=== PATIENT | male | born 1965 | race Caucasian/White ===

== ENCOUNTER 2018-04-11 02:00 | Emergency (ER) | payer MEDICAID ==
[~2018-04-11] VITALS: Ht 188 cm; Wt 74.0 kg
[2018-04-11] MEDS ORDERED: ALBUTEROL/IPRATROPIUM 2.5MG/0.5MG, 3 ML NPPB PRN (03:00)
[2018-04-11] MEDS ORDERED: ALBUTEROL/IPRATROPIUM 2.5MG/0.5MG, 3 ML ONE (03:36)
[2018-04-11 05:13] VITALS: BP 123/87
== END 2018-04-11 06:37 | disposition home or self-care (01) ==
LOC: ED 03:21
DX: J44.1 Chronic obstructive pulmonary disease with (acute) exacerbation (principal); F17.210 Nicotine dependence, cigarettes, uncomplicated
CPT/HCPCS: 71046; 93005; 94640; 99285; J7512; J7620

== ENCOUNTER 2018-04-27 10:15 | Emergency (ER) | payer MEDICAID ==
[~2018-04-27] VITALS: Ht 188 cm; Wt 72.9 kg
[2018-04-27] MEDS ORDERED: ALBUTEROL/IPRATROPIUM 2.5MG/0.5MG, 3 ML ONE (10:43)
[2018-04-27] MEDS: ALBUTEROL/IPRATROPIUM 2.5MG/0.5MG, 3 ML NPPB SCH (10:45)
[2018-04-27] MEDS ORDERED: SODIUM CHLORIDE 0.9% 1,000ML IVBOLUS ONE (11:00)
[2018-04-27] MEDS ORDERED: methylPREDNISolone SOD SUCC 125 MG/2 ML IVP ONE (11:00)
[2018-04-27] MEDS ORDERED: methylPREDNISolone SOD SUCC 125 MG/2 ML ONE (11:02)
[2018-04-27 11:09] LABS: BASOPHILS # (AUTO) 0.11 x10^3/uL (0-0.1); BASOPHILS % (AUTO) 1 % (0-1); EOSINOPHILS # (AUTO) 0.22 x10^3/uL (0-0.4); EOSINOPHILS % (AUTO) 2 % (1-7); LYMPHOCYTES # (AUTO) 1.86 x10^3/uL (1-3.4); LYMPHOCYTES % (AUTO) 16 % (22-44); MD NO; MEAN CORPUSCULAR HEMOGLOBIN 32.5 pg (27.5-34.5); MEAN CORPUSCULAR HGB CONC 33.9 g/dL (33.2-36.2); MEAN CORPUSCULAR VOLUME 95.9 fL (81-97); MEAN PLATELET VOLUME 8.1 fL (7.4-10.4); MONOCYTES # (AUTO) 0.93 x10^3/uL (0.2-0.8); MONOCYTES % (AUTO) 8 % (2-9); NEUTROPHILS # (AUTO) 8.32 x10^3/uL (1.8-6.8); NEUTROPHILS % (AUTO) 73 % (42-75); PLATELET COUNT 211 x10^3/uL (130-400); RED BLOOD COUNT 4.63 x10^6/uL (4.38-5.82); RED CELL DISTRIBUTION WIDTH 15.4 % (9.4-14.8)
[2018-04-27 11:16] LABS: ALBUMIN 3.6 g/dL (3.4-5.0); ANION GAP 8 mmol/L (5-15); CALCIUM 8.1 mg/dL (8.5-10.1); CHLORIDE 104 mmol/L (98-107); CREATININE 0.67 mg/dL (0.7-1.3)
[2018-04-27 12:29] VITALS: BP 146/92
== END 2018-04-27 13:06 | disposition home or self-care (01) ==
LOC: ED 10:48
DX: J44.1 Chronic obstructive pulmonary disease with (acute) exacerbation (principal); F19.20 Other psychoactive substance dependence, uncomplicated
CPT/HCPCS: 36415; 71045; 80048; 82040; 85025; 93005; 94640; 96374; 99285; J2930; J7030; J7620

== ENCOUNTER 2018-05-14 08:57 | Emergency (ER) | payer MEDICAID ==
[2018-05-14] MEDS ORDERED: ALBUTEROL/IPRATROPIUM 2.5MG/0.5MG, 3 ML ONE (09:54)
[2018-05-14] MEDS ORDERED: ALBUTEROL/IPRATROPIUM 2.5MG/0.5MG, 3 ML NPPB ONE (10:00)
[2018-05-14 10:21] VITALS: BP 134/81
== END 2018-05-14 10:36 | disposition home or self-care (01) ==
LOC: ED 10:30
DX: J44.1 Chronic obstructive pulmonary disease with (acute) exacerbation (principal); F17.200 Nicotine dependence, unspecified, uncomplicated
CPT/HCPCS: 71045; 93005; 94640; 99284; J7620

== ENCOUNTER 2018-05-23 11:14 | Emergency (ER) | payer MEDICAID ==
[~2018-05-23] VITALS: Ht 188 cm; Wt 77.4 kg
[2018-05-23] MEDS ORDERED: ALBUTEROL/IPRATROPIUM 2.5MG/0.5MG, 3 ML NPPB ONE ×2 (11:30→13:00)
[2018-05-23 11:38] LABS: BASOPHILS # (AUTO) 0.16 x10^3/uL (0-0.1); BASOPHILS % (AUTO) 1 % (0-1); EOSINOPHILS # (AUTO) 0.08 x10^3/uL (0-0.4); EOSINOPHILS % (AUTO) 1 % (1-7); LYMPHOCYTES # (AUTO) 2.11 x10^3/uL (1-3.4); LYMPHOCYTES % (AUTO) 12 % (22-44); MD NO; MEAN CORPUSCULAR HEMOGLOBIN 33.9 pg (27.5-34.5); MEAN CORPUSCULAR HGB CONC 34.7 g/dL (33.2-36.2); MEAN CORPUSCULAR VOLUME 97.9 fL (81-97); MEAN PLATELET VOLUME 7.8 fL (7.4-10.4); MONOCYTES # (AUTO) 0.97 x10^3/uL (0.2-0.8); MONOCYTES % (AUTO) 6 % (2-9); NEUTROPHILS # (AUTO) 14.44 x10^3/uL (1.8-6.8); NEUTROPHILS % (AUTO) 81 % (42-75); PLATELET COUNT 191 x10^3/uL (130-400); RED BLOOD COUNT 4.49 x10^6/uL (4.38-5.82); RED CELL DISTRIBUTION WIDTH 15.2 % (9.4-14.8)
[2018-05-23] MEDS ORDERED: ALBU1.25 NEB (11:47)
[2018-05-23 11:49] LABS: ALANINE AMINOTRANSFERASE 29 U/L (12-78); ALBUMIN 3.1 g/dL (3.4-5.0); ANION GAP 9 mmol/L (5-15); CALCIUM 7.9 mg/dL (8.5-10.1); CHLORIDE 102 mmol/L (98-107)
[2018-05-23 11:53] LABS: ALKALINE PHOSPHATASE 121 U/L (45-117); BILIRUBIN,TOTAL 0.6 mg/dL (0.2-1.0); CREATININE 0.59 mg/dL (0.7-1.3); TOTAL PROTEIN 7.1 g/dL (6.4-8.2); TROPONIN I < 0.015 ng/mL (0.000-0.045)
[2018-05-23] MEDS ORDERED: ALBUTEROL/IPRATROPIUM 2.5MG/0.5MG, 3 ML ONE ×2 (11:54→12:42)
[2018-05-23 13:56] VITALS: BP 129/82
== END 2018-05-23 14:02 | disposition home or self-care (01) ==
LOC: ED 12:07
DX: J44.1 Chronic obstructive pulmonary disease with (acute) exacerbation (principal); F17.200 Nicotine dependence, unspecified, uncomplicated
CPT/HCPCS: 36415; 71045; 80053; 84484; 85025; 93005; 94640; 99285; J7512; J7620

== ENCOUNTER 2018-05-24 16:09 | Emergency (ER) | payer MEDICAID ==
[~2018-05-24] VITALS: Ht 188 cm; Wt 75.7 kg
[~2018-05-24 16:09] MED LIST: ALBU1.25 NEB
[2018-05-24 16:21] VITALS: BP 152/93
[2018-05-24] MEDS ORDERED: ALBUTEROL/IPRATROPIUM 2.5MG/0.5MG, 3 ML NPPB ONE (17:00)
[2018-05-24] MEDS ORDERED: ALBUTEROL/IPRATROPIUM 2.5MG/0.5MG, 3 ML ONE (17:19)
== END 2018-05-24 17:45 | disposition home or self-care (01) ==
LOC: ED 17:40
DX: J44.1 Chronic obstructive pulmonary disease with (acute) exacerbation (principal); F17.200 Nicotine dependence, unspecified, uncomplicated; Z90.49 Acquired absence of other specified parts of digestive tract
CPT/HCPCS: 93005; 94640; 99283; 99406; J7512; J7620

== ENCOUNTER 2018-06-27 10:55 | Emergency (ER) | payer MEDICAID ==
[~2018-06-27] VITALS: Ht 193 cm; Wt 80.0 kg
[2018-06-27] MEDS ORDERED: ALBUTEROL/IPRATROPIUM 2.5MG/0.5MG, 3 ML NPPB ONE (11:30)
[2018-06-27] MEDS ORDERED: ALBUTEROL/IPRATROPIUM 2.5MG/0.5MG, 3 ML ONE (11:36)
[2018-06-27 12:48] VITALS: BP 137/94
== END 2018-06-27 13:20 | disposition home or self-care (01) ==
LOC: ED 13:14
DX: J44.1 Chronic obstructive pulmonary disease with (acute) exacerbation (principal); F17.200 Nicotine dependence, unspecified, uncomplicated; Z90.89 Acquired absence of other organs
CPT/HCPCS: 71045; 73030; 93005; 94640; 99284; J7512; J7620

== ENCOUNTER 2018-07-20 08:18 | Emergency (ER) | payer MEDICAID ==
[~2018-07-20] VITALS: Ht 190.5 cm; Wt 82.7 kg
[2018-07-20] MEDS ORDERED: SODIUM CHLORIDE FLUSH 10ML SYR IVF ONE (08:30)
[2018-07-20] MEDS ORDERED: methylPREDNISolone SOD SUCC 125 MG/2 ML IVP ONE (08:30)
[2018-07-20] MEDS ORDERED: methylPREDNISolone SOD SUCC 125 MG/2 ML ONE (08:42)
[2018-07-20] MEDS ORDERED: ALBUTEROL SULFATE 2.5 MG/3 ML ONE (08:43)
[2018-07-20 08:50] LABS: BASOPHILS # (AUTO) 0.05 x10^3/uL (0-0.1); BASOPHILS % (AUTO) 1 % (0-1); EOSINOPHILS # (AUTO) 0.15 x10^3/uL (0-0.4); EOSINOPHILS % (AUTO) 2 % (1-7); LYMPHOCYTES # (AUTO) 1.37 x10^3/uL (1-3.4); LYMPHOCYTES % (AUTO) 13 % (22-44); MD NO; MEAN CORPUSCULAR HEMOGLOBIN 33.6 pg (27.5-34.5); MEAN CORPUSCULAR HGB CONC 33.4 g/dL (33.2-36.2); MEAN CORPUSCULAR VOLUME 100.7 fL (81-97); MEAN PLATELET VOLUME 7.3 fL (7.4-10.4); MONOCYTES # (AUTO) 0.83 x10^3/uL (0.2-0.8); MONOCYTES % (AUTO) 8 % (2-9); NEUTROPHILS # (AUTO) 8.03 x10^3/uL (1.8-6.8); NEUTROPHILS % (AUTO) 77 % (42-75); PLATELET COUNT 236 x10^3/uL (130-400); RED BLOOD COUNT 4.28 x10^6/uL (4.38-5.82); RED CELL DISTRIBUTION WIDTH 17.2 % (9.4-14.8)
[2018-07-20 08:58] LABS: ALANINE AMINOTRANSFERASE 39 U/L (12-78); ALBUMIN 3.2 g/dL (3.4-5.0); ANION GAP 9 mmol/L (5-15); CALCIUM 7.8 mg/dL (8.5-10.1); CHLORIDE 96 mmol/L (98-107); CREATININE 0.58 mg/dL (0.7-1.3)
[2018-07-20] MEDS ORDERED: ALBUTEROL SULFATE 2.5 MG/3 ML NPPB ONE ×2 (09:00)
[2018-07-20 09:02] LABS: ALKALINE PHOSPHATASE 136 U/L (45-117); BILIRUBIN,TOTAL 0.5 mg/dL (0.2-1.0); TOTAL PROTEIN 6.8 g/dL (6.4-8.2); TROPONIN I < 0.015 ng/mL (0.000-0.045)
[2018-07-20] MEDS ORDERED: OMNIPAQUE 350 MG/ML, 100ML BOTTLE ONE (09:51)
[2018-07-20 11:27] VITALS: BP 152/97
== END 2018-07-20 11:31 | disposition left against medical advice (07) ==
LOC: ED 08:51
DX: J43.9 Emphysema, unspecified (principal); R09.02 Hypoxemia; F17.200 Nicotine dependence, unspecified, uncomplicated; Z90.89 Acquired absence of other organs
CPT/HCPCS: 36415; 71045; 71275; 80053; 84484; 85025; 93005; 94640; 96374; 99285; J2930; Q9967; J7613

== ENCOUNTER 2018-07-27 19:40 | Inpatient (IN) | payer MEDICAID ==
[~2018-07-27] VITALS: Ht 190.5 cm; Wt 83.5 kg
[2018-07-27] MEDS ORDERED: ALBUTEROL/IPRATROPIUM 2.5MG/0.5MG, 3 ML ONE (20:21)
[2018-07-27] MEDS ORDERED: SODIUM CHLORIDE FLUSH 10ML SYR IVF ONE (20:30)
[2018-07-27] MEDS ORDERED: ALBUTEROL/IPRATROPIUM 2.5MG/0.5MG, 3 ML NPPB ONE (20:30)
[2018-07-27 20:41] LABS: BASOPHILS # (AUTO) 0.06 x10^3/uL (0-0.1); BASOPHILS % (AUTO) 1 % (0-1); EOSINOPHILS % (AUTO) 3 % (1-7); LYMPHOCYTES % (AUTO) 28 % (22-44); MD NO; MEAN CORPUSCULAR HEMOGLOBIN 34.2 pg (27.5-34.5); MEAN CORPUSCULAR HGB CONC 33.5 g/dL (33.2-36.2); MEAN PLATELET VOLUME 6.9 fL (7.4-10.4); MONOCYTES # (AUTO) 1.07 x10^3/uL (0.2-0.8); MONOCYTES % (AUTO) 15 % (2-9); NEUTROPHILS # (AUTO) 3.82 x10^3/uL (1.8-6.8); NEUTROPHILS % (AUTO) 53 % (42-75); PLATELET COUNT 174 x10^3/uL (130-400); RED BLOOD COUNT 4.03 x10^6/uL (4.38-5.82); RED CELL DISTRIBUTION WIDTH 17.8 % (9.4-14.8)
[2018-07-27 20:52] LABS: ALANINE AMINOTRANSFERASE 36 U/L (12-78); ANION GAP 8 mmol/L (5-15); CHLORIDE 96 mmol/L (98-107); CREATININE 0.52 mg/dL (0.7-1.3)
[2018-07-27 20:56] LABS: ALKALINE PHOSPHATASE 114 U/L (45-117); BILIRUBIN,TOTAL 0.4 mg/dL (0.2-1.0); TOTAL PROTEIN 6.7 g/dL (6.4-8.2); TROPONIN I < 0.015 ng/mL (0.000-0.045)
[2018-07-27] MEDS ORDERED: ONDANSETRON ODT 4 MG PO PRN (23:00)
[2018-07-27] MEDS ORDERED: FUROSEMIDE 20 MG/2 ML IV ONE (23:00)
[2018-07-27] MEDS ORDERED: ALBUTEROL/IPRATROPIUM 2.5MG/0.5MG, 3 ML NPPB PRN (23:00)
[2018-07-27] MEDS ORDERED: BISACODYL 10 MG SUPP PR PRN (23:00)
[2018-07-27] MEDS ORDERED: PROMETHAZINE 25 MG/ML, 1ML IM PRN (23:00)
[2018-07-27] MEDS ORDERED: ONDANSETRON 2MG/ML, 2ML IVPush PRN (23:00)
[2018-07-27] MEDS ORDERED: hydrALAzine 20 MG/ML, 1ML IVPush PRN (23:00)
[2018-07-27] MEDS: DOXYCYCLINE 100MG TABLET PO SCH (23:00)
[2018-07-27] MEDS ORDERED: LABETALOL 5MG/ML, 20ML IVPush PRN (23:00)
[2018-07-27] MEDS ORDERED: POLYETHYLENE GLYCOL 17 GM PACKET PO PRN (23:00)
[2018-07-27] MEDS ORDERED: DOCUSATE 100 MG CAPSULE PO PRN (23:00)
[2018-07-27 23:07] VITALS: BP 123/81
[2018-07-27 23:12] LABS: HEMOGLOBIN A1C 5.1 % (4.2-6.3)
[2018-07-27 23:14] LABS: FREE T4 (FREE THYROXINE) 1.27 ng/dL (0.76-1.46); THYROID STIMULATING HORMONE 3.51 mIU/L (0.358-3.740)
[2018-07-28] MEDS: ENOXAPARIN 40 MG/0.4 ML SQ SCH
[2018-07-28 01:06] VITALS: BP 144/98
[2018-07-28 05:13] LABS: BASOPHILS % (AUTO) 0 % (0-1); EOSINOPHILS # (AUTO) 0.01 x10^3/uL (0-0.4); EOSINOPHILS % (AUTO) 0 % (1-7); LYMPHOCYTES # (AUTO) 0.34 x10^3/uL (1-3.4); LYMPHOCYTES % (AUTO) 10 % (22-44); MD NO; MEAN CORPUSCULAR HEMOGLOBIN 34.2 pg (27.5-34.5); MEAN CORPUSCULAR HGB CONC 33.4 g/dL (33.2-36.2); MEAN CORPUSCULAR VOLUME 102.4 fL (81-97); MEAN PLATELET VOLUME 7.2 fL (7.4-10.4); MONOCYTES # (AUTO) 0.05 x10^3/uL (0.2-0.8); MONOCYTES % (AUTO) 1 % (2-9); NEUTROPHILS # (AUTO) 3.21 x10^3/uL (1.8-6.8); NEUTROPHILS % (AUTO) 89 % (42-75); PLATELET COUNT 170 x10^3/uL (130-400); RED BLOOD COUNT 4.05 x10^6/uL (4.38-5.82); RED CELL DISTRIBUTION WIDTH 18.4 % (9.4-14.8)
[2018-07-28 05:21] LABS: CHLORIDE 99 mmol/L (98-107)
[2018-07-28] MEDS: methylPREDNISolone SOD SUCC 125 MG/2 ML IVPush SCH ×4 (05:21→17:44)
[2018-07-28 05:28] LABS: ALANINE AMINOTRANSFERASE 37 U/L (12-78); ALKALINE PHOSPHATASE 114 U/L (45-117); ANION GAP 8 mmol/L (5-15); BILIRUBIN,TOTAL 0.3 mg/dL (0.2-1.0); CALCIUM 8.2 mg/dL (8.5-10.1); CHOL/HDL RATIO 2.2; CHOLESTEROL, TOTAL 162 mg/dL (140-239); CREATININE 0.67 mg/dL (0.7-1.3); HDL CHOL % 46 % (26-37); HDL CHOLESTEROL (DIRECT) 74 mg/dL (40-60); LDL CHOLESTEROL,CALCULATED 76 mg/dL (54-169); TOTAL PROTEIN 6.8 g/dL (6.4-8.2); TRIGLYCERIDES 59 mg/dL (50-200); VLDL CHOLESTEROL 12 mg/dL (0-25)
[2018-07-28] MEDS: ALBUTEROL/IPRATROPIUM 2.5MG/0.5MG, 3 ML NPPB SCH ×5 (06:00→23:00)
[2018-07-28 06:11] LABS: CULTURE INDICATED? NO; MICROSCOPIC NOT IND
[2018-07-28 06:58] VITALS: BP 130/89
[2018-07-28] MEDS: DOXYCYCLINE 100MG TABLET PO SCH ×2 (09:00→20:17)
[2018-07-28] MEDS: FLUTICASONE/VILANTEROL 200-25MCG/INH INH SCH (13:18)
[2018-07-28 13:21] VITALS: BP 160/99
[2018-07-28] MEDS ORDERED: MAGNESIUM SULFATE PMX 2GM/50ML 50 ML IV ONE (14:30)
[2018-07-28 19:12] VITALS: BP 161/95
[2018-07-28] MEDS: NICOTINE 7 MG/24 HR PATCH.TD24 TD SCH ×2 (23:00)
[2018-07-29] MEDS: ENOXAPARIN 40 MG/0.4 ML SQ SCH (00:02)
[2018-07-29] MEDS: methylPREDNISolone SOD SUCC 125 MG/2 ML IVPush SCH ×2 (00:02→05:54)
[2018-07-29 02:35] VITALS: BP 133/93
[2018-07-29 05:43] LABS: BASOPHILS # (AUTO) 0.01 x10^3/uL (0-0.1); BASOPHILS % (AUTO) 0 % (0-1); EOSINOPHILS % (AUTO) 0 % (1-7); LYMPHOCYTES # (AUTO) 0.52 x10^3/uL (1-3.4); LYMPHOCYTES % (AUTO) 6 % (22-44); MD NO; MEAN CORPUSCULAR HEMOGLOBIN 34.9 pg (27.5-34.5); MEAN CORPUSCULAR VOLUME 102.7 fL (81-97); MEAN PLATELET VOLUME 7.4 fL (7.4-10.4); MONOCYTES # (AUTO) 0.25 x10^3/uL (0.2-0.8); MONOCYTES % (AUTO) 3 % (2-9); NEUTROPHILS # (AUTO) 8.41 x10^3/uL (1.8-6.8); NEUTROPHILS % (AUTO) 91 % (42-75); PLATELET COUNT 190 x10^3/uL (130-400); RED BLOOD COUNT 3.88 x10^6/uL (4.38-5.82); RED CELL DISTRIBUTION WIDTH 18.1 % (9.4-14.8)
[2018-07-29 05:48] LABS: ANION GAP 8 mmol/L (5-15); CALCIUM 8.1 mg/dL (8.5-10.1); CHLORIDE 98 mmol/L (98-107); CREATININE 0.69 mg/dL (0.7-1.3)
[2018-07-29] MEDS: ALBUTEROL/IPRATROPIUM 2.5MG/0.5MG, 3 ML NPPB SCH (06:00)
[2018-07-29 06:59] VITALS: BP 149/94
[2018-07-29] MEDS ORDERED: LISI-167 PO (07:47)
[2018-07-29] MEDS ORDERED: NICO-485 TD (07:47)
[2018-07-29] MEDS ORDERED: METH4TAB2 PO (07:47)
[2018-07-29] MEDS ORDERED: FLUT1BLS INH (07:47)
[2018-07-29] MEDS: DOXYCYCLINE 100MG TABLET PO SCH (08:14)
[2018-07-29] MEDS: FLUTICASONE/VILANTEROL 200-25MCG/INH INH SCH (08:14)
[2018-07-29] MEDS ORDERED: LISINOPRIL 5 MG TABLET PO SCH (09:00)
== END 2018-07-29 09:45 | disposition home or self-care (01) | DRG 189 ==
LOC: ED 21:37 → EDIP 22:10 → 3NE 22:55 → DCLOUNGE 07-29 09:36
PROVIDERS: ADMIT Internal Medicine; ATTEND Internal Medicine
DX: J96.01 Acute respiratory failure with hypoxia (principal); J44.1 Chronic obstructive pulmonary disease with (acute) exacerbation; E44.0 Moderate protein-calorie malnutrition; E87.1 Hypo-osmolality and hyponatremia; F17.210 Nicotine dependence, cigarettes, uncomplicated; E83.42 Hypomagnesemia; F12.90 Cannabis use, unspecified, uncomplicated; I10 Essential (primary) hypertension; D53.9 Nutritional anemia, unspecified; Z87.11 Personal history of peptic ulcer disease; Z91.013 Allergy to seafood; Z91.018 Allergy to other foods; Z79.899 Other long term (current) drug therapy; Z68.23 Body mass index [BMI] 23.0-23.9, adult
CPT/HCPCS: 36415; 99285; J7620; 71045; 80048; 80053; 80061; 81003; 82607; 82746; 83036; 83735; 83880; 84439; 84443; 84484; 85025; 93005; 93306; 93970; 94640; G0378; J1650; J1940; J2930; J3475; J7512

== ENCOUNTER 2018-08-14 14:42 | Inpatient (IN) | payer MEDICAID ==
[~2018-08-14] VITALS: Ht 190.5 cm; Wt 82.0 kg
[~2018-08-14 14:42] MED LIST changes: +FLUT1BLS INH; +LISI-167 PO; +METH4TAB2 PO; +NICO-485 TD
[2018-08-14] MEDS ORDERED: LORazepam 2 MG/ML, 1ML IVPush PRN (15:00)
[2018-08-14] MEDS ORDERED: FAMOTIDINE 20 MG/2 ML IVPush ONE (15:00)
[2018-08-14] MEDS ORDERED: THIAMINE 100MG TABLET PO ONE (15:00)
[2018-08-14] MEDS ORDERED: SODIUM CHLORIDE FLUSH 10ML SYR IVF ONE (15:00)
[2018-08-14] MEDS ORDERED: SODIUM CHLORIDE 0.9% 1,000ML IVBOLUS ONE ×2 (15:00→15:30)
[2018-08-14] MEDS ORDERED: ONDANSETRON 2MG/ML, 2ML IVPush ONE (15:00)
[2018-08-14] MEDS ORDERED: CEFTRIAXONE 1,000 MG in SODIUM CHLORIDE 0.9% 50 ML IVPB ONE (15:30)
[2018-08-14] MEDS ORDERED: AZITHROMYCIN 500 MG in SODIUM CHLORIDE 0.9% 250 ML IVPB ONE (15:30)
[2018-08-14] MEDS ORDERED: ONDANSETRON 2MG/ML, 2ML ONE (15:32)
[2018-08-14] MEDS ORDERED: CEFTRIAXONE PMX 1GM/50ML 50 ML ONE (15:32)
[2018-08-14] MEDS ORDERED: THIAMINE 100MG TABLET ONE (15:32)
[2018-08-14] MEDS ORDERED: FAMOTIDINE 20 MG/2 ML ONE (15:33)
[2018-08-14] MEDS ORDERED: LORazepam 2 MG/ML, 1ML ONE (15:33)
[2018-08-14] MEDS ORDERED: ALBUTEROL/IPRATROPIUM 2.5MG/0.5MG, 3 ML ONE ×2 (15:41→16:24)
[2018-08-14 15:52] LABS: BASOPHILS # (AUTO) 0.07 x10^3/uL (0-0.1); BASOPHILS % (AUTO) 1 % (0-1); EOSINOPHILS # (AUTO) 0.05 x10^3/uL (0-0.4); EOSINOPHILS % (AUTO) 0 % (1-7); LYMPHOCYTES # (AUTO) 1.63 x10^3/uL (1-3.4); LYMPHOCYTES % (AUTO) 11 % (22-44); MD NO; MEAN CORPUSCULAR HEMOGLOBIN 35.4 pg (27.5-34.5); MEAN CORPUSCULAR HGB CONC 34.4 g/dL (33.2-36.2); MEAN CORPUSCULAR VOLUME 102.9 fL (81-97); MEAN PLATELET VOLUME 8.4 fL (7.4-10.4); MONOCYTES # (AUTO) 0.97 x10^3/uL (0.2-0.8); MONOCYTES % (AUTO) 6 % (2-9); NEUTROPHILS % (AUTO) 83 % (42-75); PLATELET COUNT 137 x10^3/uL (130-400); RED BLOOD COUNT 4.21 x10^6/uL (4.38-5.82); RED CELL DISTRIBUTION WIDTH 18.2 % (9.4-14.8)
[2018-08-14 15:55] LABS: RAPID INFLUENZA A Negative (Negative); RAPID INFLUENZA B Negative (Negative)
[2018-08-14 16:00] LABS: ALANINE AMINOTRANSFERASE 39 U/L (12-78); ALBUMIN 3.6 g/dL (3.4-5.0); ANION GAP 8 mmol/L (5-15); CHLORIDE 94 mmol/L (98-107); CREATININE 0.55 mg/dL (0.7-1.3)
[2018-08-14] MEDS: ALBUTEROL/IPRATROPIUM 2.5MG/0.5MG, 3 ML NPPB PRN ×2 (16:00→16:30)
[2018-08-14 16:04] LABS: ALKALINE PHOSPHATASE 112 U/L (45-117); BILIRUBIN,TOTAL 0.9 mg/dL (0.2-1.0); TOTAL PROTEIN 7.7 g/dL (6.4-8.2)
[2018-08-14 16:06] LABS: TROPONIN I < 0.015 ng/mL (0.000-0.045)
[2018-08-14] MEDS ORDERED: SODIUM CHLORIDE 0.9% 1,000 ML IV ONE (16:26)
[2018-08-14] MEDS ORDERED: SODIUM CHLORIDE FLUSH 10ML SYR IVF PRN (16:30)
[2018-08-14] MEDS ORDERED: POLYETHYLENE GLYCOL 17 GM PACKET PO PRN (17:00)
[2018-08-14] MEDS ORDERED: VANCOMYCIN PER PHARMACY MC PRN (17:00)
[2018-08-14] MEDS ORDERED: ONDANSETRON 2MG/ML, 2ML IVPush PRN (17:00)
[2018-08-14] MEDS ORDERED: ACETAMINOPHEN 325 MG TABLET PO PRN (17:00)
[2018-08-14] MEDS ORDERED: LABETALOL 5MG/ML, 20ML IVPush PRN (17:00)
[2018-08-14] MEDS ORDERED: DOCUSATE 100 MG CAPSULE PO PRN (17:00)
[2018-08-14] MEDS ORDERED: BISACODYL 10 MG SUPP PR PRN (17:00)
[2018-08-14] MEDS ORDERED: ALBUTEROL SULFATE 2.5 MG/3 ML NEB PRN (17:00)
[2018-08-14] MEDS ORDERED: OMNIPAQUE 350 MG/ML, 100ML BOTTLE ONE (17:35)
[2018-08-14] MEDS: NICOTINE 7 MG/24 HR PATCH.TD24 TD SCH (18:30)
[2018-08-14] MEDS ORDERED: PHARMACOKINETIC MONITORING MC PRN (19:00)
[2018-08-14] MEDS ORDERED: VANCOMYCIN 1,500 MG in SODIUM CHLORIDE 0.9% 250 ML IV SCH (19:00)
[2018-08-14 19:32] VITALS: BP 127/87
[2018-08-14] MEDS ORDERED: ALBUTEROL/IPRATROPIUM 2.5MG/0.5MG, 3 ML NPPB SCH (20:00)
[2018-08-14] MEDS: PIPERACILLIN/TAZO/PMX 3.375GM 50 ML IV SCH (20:09)
[2018-08-14] MEDS: GUAIFENESIN ER 600 MG TABLET PO SCH (20:10)
[2018-08-14] MEDS: methylPREDNISolone SOD SUCC 125 MG/2 ML IVPush SCH (20:10)
[2018-08-14] MEDS: ENOXAPARIN 40 MG/0.4 ML SQ SCH (20:10)
[2018-08-14] MEDS: POTASSIUM CHLORIDE 20 MEQ TAB.ER.PRT PO SCH (20:10)
[2018-08-14] MEDS: SODIUM CHLORIDE FLUSH 10ML SYR IVF SCH (20:13)
[2018-08-14] MEDS: LORazepam 2 MG/ML, 1ML IVPush PRN (20:37)
[2018-08-14 22:03] VITALS: BP 136/95
[2018-08-14] MEDS ORDERED: MAGNESIUM SULFATE PMX 2GM/50ML 50 ML IV ONE (22:30)
[2018-08-15 01:34] VITALS: BP 140/92
[2018-08-15] MEDS: PIPERACILLIN/TAZO/PMX 3.375GM 50 ML IV SCH ×3 (02:08→18:05)
[2018-08-15] MEDS: methylPREDNISolone SOD SUCC 125 MG/2 ML IVPush SCH ×4 (02:08→22:14)
[2018-08-15] MEDS: LORazepam 2 MG/ML, 1ML IVPush PRN ×3 (04:35→22:14)
[2018-08-15 04:52] LABS: ANION GAP 7 mmol/L (5-15); CALCIUM 7.4 mg/dL (8.5-10.1); CHLORIDE 100 mmol/L (98-107); CREATININE 0.65 mg/dL (0.7-1.3)
[2018-08-15 04:58] LABS: MEAN CORPUSCULAR HEMOGLOBIN 35.1 pg (27.5-34.5); MEAN CORPUSCULAR HGB CONC 33.5 g/dL (33.2-36.2); MEAN CORPUSCULAR VOLUME 104.6 fL (81-97); RED BLOOD COUNT 3.47 x10^6/uL (4.38-5.82); RED CELL DISTRIBUTION WIDTH 17.5 % (9.4-14.8)
[2018-08-15 05:35] LABS: BASOPHILS # (AUTO) 0.01 x10^3/uL (0-0.1); BASOPHILS % (AUTO) 0 % (0-1); EOSINOPHILS % (AUTO) 0 % (1-7); LYMPHOCYTES # (AUTO) 0.69 x10^3/uL (1-3.4); LYMPHOCYTES % (AUTO) 10 % (22-44); MD SCAN; MEAN PLATELET VOLUME 8.6 fL (7.4-10.4); MONOCYTES # (AUTO) 0.08 x10^3/uL (0.2-0.8); MONOCYTES % (AUTO) 1 % (2-9); NEUTROPHILS # (AUTO) 6.25 x10^3/uL (1.8-6.8); NEUTROPHILS % (AUTO) 89 % (42-75); PLATELET COUNT 114 x10^3/uL (130-400)
[2018-08-15 08:00] VITALS: BP 133/89
[2018-08-15] MEDS: ALBUTEROL SULFATE 2.5 MG/3 ML NEB SCH ×5 (08:20→23:00)
[2018-08-15] MEDS: FOLIC ACID 1 MG TABLET PO SCH (09:46)
[2018-08-15] MEDS: FLUTICASONE/VILANTEROL 200-25MCG/INH INH SCH (09:46)
[2018-08-15] MEDS: GUAIFENESIN ER 600 MG TABLET PO SCH ×2 (09:46→20:56)
[2018-08-15] MEDS: MULTIVITAMIN 1 TABLET PO SCH (09:47)
[2018-08-15] MEDS: THIAMINE 100MG TABLET PO SCH (09:47)
[2018-08-15] MEDS: LISINOPRIL 10 MG TABLET PO SCH (09:47)
[2018-08-15] MEDS: POTASSIUM CHLORIDE 20 MEQ TAB.ER.PRT PO SCH ×2 (09:47→16:35)
[2018-08-15] MEDS: LINEZOLID PMX 600MG/300ML 300 ML IV SCH ×2 (09:47→20:56)
[2018-08-15] MEDS: SODIUM CHLORIDE FLUSH 10ML SYR IVF SCH ×2 (09:53→20:56)
[2018-08-15 11:33] LABS: ANION GAP 6 mmol/L (5-15); CALCIUM 7.6 mg/dL (8.5-10.1); CHLORIDE 99 mmol/L (98-107)
[2018-08-15] MEDS ORDERED: SODIUM PHOSPHATE 30 MMOL in SODIUM CHLORIDE 0.9% 500 ML IV ONE (12:30)
[2018-08-15] MEDS ORDERED: MAGNESIUM SULFATE PMX 2GM/50ML 50 ML IV ONE (12:30)
[2018-08-15 14:00] VITALS: BP 126/86
[2018-08-15] MEDS: NICOTINE 7 MG/24 HR PATCH.TD24 TD SCH (16:35)
[2018-08-15 18:40] VITALS: BP 123/74
[2018-08-15] MEDS: ENOXAPARIN 40 MG/0.4 ML SQ SCH (20:57)
[2018-08-16] MEDS: PIPERACILLIN/TAZO/PMX 3.375GM 50 ML IV SCH ×4 (00:17→18:00)
[2018-08-16 02:00] VITALS: BP 151/93
[2018-08-16] MEDS: ALBUTEROL SULFATE 2.5 MG/3 ML NEB SCH ×4 (02:58→16:20)
[2018-08-16] MEDS: methylPREDNISolone SOD SUCC 125 MG/2 ML IVPush SCH ×3 (04:10→16:31)
[2018-08-16 07:52] VITALS: BP 133/84
[2018-08-16] MEDS: POTASSIUM CHLORIDE 20 MEQ TAB.ER.PRT PO SCH ×2 (09:06→16:31)
[2018-08-16] MEDS: GUAIFENESIN ER 600 MG TABLET PO SCH (09:08)
[2018-08-16] MEDS: THIAMINE 100MG TABLET PO SCH (09:09)
[2018-08-16] MEDS: LISINOPRIL 10 MG TABLET PO SCH (09:09)
[2018-08-16] MEDS: FOLIC ACID 1 MG TABLET PO SCH (09:10)
[2018-08-16] MEDS: MULTIVITAMIN 1 TABLET PO SCH (09:10)
[2018-08-16] MEDS: LINEZOLID PMX 600MG/300ML 300 ML IV SCH (09:11)
[2018-08-16] MEDS: FLUTICASONE/VILANTEROL 200-25MCG/INH INH SCH (09:12)
[2018-08-16] MEDS: SODIUM CHLORIDE FLUSH 10ML SYR IVF SCH (09:19)
[2018-08-16] MEDS ORDERED: POTASSIUM PHOSPHATE 44 MEQ in SODIUM CHLORIDE 0.9% 500 ML IV ONE (12:00)
[2018-08-16] MEDS ORDERED: MAGNESIUM SULFATE PMX 2GM/50ML 50 ML IV ONE (12:00)
[2018-08-16] MEDS ORDERED: PRED10TA PO (12:54)
[2018-08-16] MEDS ORDERED: AZIT500T PO (13:00)
[2018-08-16] MEDS ORDERED: FOLI-17 PO (13:00)
[2018-08-16] MEDS ORDERED: THIA100T67 PO (13:00)
[2018-08-16] MEDS ORDERED: CEFD300C37 PO (13:00)
[2018-08-16] MEDS ORDERED: GUAI600T31 PO (13:00)
[2018-08-16] MEDS ORDERED: MULT1TAB60 PO (13:00)
[2018-08-16] MEDS ORDERED: IPRA3AMP30 INH (13:00)
[2018-08-16] MEDS ORDERED: TIOT18CA INH (13:00)
[2018-08-16] MEDS ORDERED: SIMV20TA PO (13:13)
[2018-08-16 14:00] VITALS: BP 146/90
== END 2018-08-16 18:48 | disposition home or self-care (01) | DRG 871 ==
LOC: ED 16:02 → EDIP 16:44 → 3NE 17:55 → 4EST 21:39
PROVIDERS: ADMIT Hospitalist; ATTEND Hospitalist
DX: A41.9 Sepsis, unspecified organism (principal); J15.9 Unspecified bacterial pneumonia; J96.91 Respiratory failure, unspecified with hypoxia; E87.1 Hypo-osmolality and hyponatremia; J44.0 Chronic obstructive pulmonary disease with (acute) lower respiratory infection; J44.1 Chronic obstructive pulmonary disease with (acute) exacerbation; D75.89 Other specified diseases of blood and blood-forming organs; E78.5 Hyperlipidemia, unspecified; E87.6 Hypokalemia; F10.20 Alcohol dependence, uncomplicated; Y90.9 Presence of alcohol in blood, level not specified; F17.200 Nicotine dependence, unspecified, uncomplicated; J20.9 Acute bronchitis, unspecified; Z87.11 Personal history of peptic ulcer disease; Z90.49 Acquired absence of other specified parts of digestive tract; R91.1 Solitary pulmonary nodule; Z91.013 Allergy to seafood; Z91.018 Allergy to other foods
CPT/HCPCS: 36415; 36600; 84145; 87400; 99285; J7613; J7620; S0028; 71045; 71275; 80048; 80053; 80307; 82803; 83605; 83735; 83880; 84100; 84484; 85025; 87040; 87070; 87205; 93005; 94640; 96365; 96375; G0378; J0456; J0696; J1650; J2020; J2405; J2543; J3370; Q9967; J2060; J2930; J3475; J7030; J7040; J7050; J7512

== ENCOUNTER 2018-09-03 17:52 | Inpatient (IN) | payer MEDICAID ==
[~2018-09-03] VITALS: Ht 190.5 cm; Wt 92.1 kg
[~2018-09-03 17:52] MED LIST changes: +AZIT500T PO; +CEFD300C37 PO; +FOLI-17 PO; +GUAI600T31 PO; +IPRA3AMP30 INH; +MULT1TAB60 PO; +PRED10TA PO; +SIMV20TA PO; +THIA100T67 PO; +TIOT18CA INH
[2018-09-03] MEDS ORDERED: ALBUTEROL/IPRATROPIUM 2.5MG/0.5MG, 3 ML NPPB ONE (18:00)
[2018-09-03] MEDS ORDERED: PLEASE ENTER HEIGHT AND WEIGHT MC SCH (18:30)
[2018-09-03] MEDS ORDERED: ALBUTEROL/IPRATROPIUM 2.5MG/0.5MG, 3 ML ONE ×2 (18:31→18:39)
[2018-09-03] MEDS ORDERED: SODIUM CHLORIDE FLUSH 10ML SYR IVF ONE (19:30)
[2018-09-03] MEDS ORDERED: ALBUTEROL/IPRATROPIUM 2.5MG/0.5MG, 3 ML NPPB PRN (19:30)
[2018-09-03 19:33] LABS: ALANINE AMINOTRANSFERASE 36 U/L (12-78); ALBUMIN 2.6 g/dL (3.4-5.0); ANION GAP 11 mmol/L (5-15); CALCIUM 7.5 mg/dL (8.5-10.1); CHLORIDE 90 mmol/L (98-107); CREATININE 0.48 mg/dL (0.7-1.3)
[2018-09-03 19:37] LABS: ALKALINE PHOSPHATASE 135 U/L (45-117); BILIRUBIN,TOTAL 0.4 mg/dL (0.2-1.0); TOTAL PROTEIN 6.4 g/dL (6.4-8.2); TROPONIN I < 0.015 ng/mL (0.000-0.045)
[2018-09-03 19:42] LABS: MEAN CORPUSCULAR HEMOGLOBIN 35.2 pg (27.5-34.5); MEAN CORPUSCULAR HGB CONC 33.8 g/dL (33.2-36.2); PLATELET COUNT 120 x10^3/uL (130-400); RED BLOOD COUNT 3.96 x10^6/uL (4.38-5.82); RED CELL DISTRIBUTION WIDTH 17.8 % (9.4-14.8)
[2018-09-03 19:43] LABS: BASOPHILS # (AUTO) 2.07 x10^3/uL (0-0.1); BASOPHILS % (AUTO) 19 % (0-1); EOSINOPHILS # (AUTO) 0.18 x10^3/uL (0-0.4); EOSINOPHILS % (AUTO) 2 % (1-7); LYMPHOCYTES # (AUTO) 2.42 x10^3/uL (1-3.4); LYMPHOCYTES % (AUTO) 22 % (22-44); MD SCAN; MEAN PLATELET VOLUME 8.8 fL (7.4-10.4); MONOCYTES # (AUTO) 1.24 x10^3/uL (0.2-0.8); MONOCYTES % (AUTO) 11 % (2-9); NEUTROPHILS # (AUTO) 4.93 x10^3/uL (1.8-6.8); NEUTROPHILS % (AUTO) 46 % (42-75)
[2018-09-03 19:50] LABS: RAPID INFLUENZA A Negative (Negative); RAPID INFLUENZA B Negative (Negative)
[2018-09-03] MEDS ORDERED: OMNIPAQUE 350 MG/ML, 100ML BOTTLE ONE (21:05)
[2018-09-03] MEDS ORDERED: AZITHROMYCIN 500 MG in SODIUM CHLORIDE 0.9% 250 ML IV ONE (22:00)
[2018-09-03] MEDS ORDERED: CEFTRIAXONE PMX 1GM/50ML 50 ML IV ONE (22:00)
[2018-09-03] MEDS ORDERED: CEFTRIAXONE PMX 1GM/50ML 50 ML ONE (22:37)
[2018-09-04 00:13] VITALS: BP 150/94
[2018-09-04] MEDS ORDERED: DOCUSATE 100 MG CAPSULE PO PRN (00:30)
[2018-09-04] MEDS ORDERED: BISACODYL 10 MG SUPP PR PRN (00:30)
[2018-09-04] MEDS ORDERED: ONDANSETRON 2MG/ML, 2ML IVPush PRN (00:30)
[2018-09-04] MEDS ORDERED: ONDANSETRON ODT 4 MG PO PRN (00:30)
[2018-09-04] MEDS ORDERED: PROMETHAZINE 25 MG/ML, 1ML IM PRN (00:30)
[2018-09-04] MEDS ORDERED: LABETALOL 5MG/ML, 20ML IVPush PRN (00:30)
[2018-09-04] MEDS ORDERED: hydrALAzine 20 MG/ML, 1ML IVPush PRN (00:30)
[2018-09-04] MEDS ORDERED: POLYETHYLENE GLYCOL 17 GM PACKET PO PRN (00:30)
[2018-09-04] MEDS ORDERED: ACETAMINOPHEN 325 MG TABLET PO PRN (00:30)
[2018-09-04] MEDS: SIMVASTATIN 20 MG TABLET PO SCH ×2 (00:59→20:15)
[2018-09-04] MEDS ORDERED: CEFTRIAXONE PMX 1GM/50ML 50 ML IV ONE (01:00)
[2018-09-04] MEDS ORDERED: POTASSIUM CHLORIDE 40 MEQ in SODIUM CHLORIDE 0.9% 500 ML IV ONE (01:00)
[2018-09-04] MEDS: SODIUM CHLORIDE 0.9% 1,000 ML IV SCH ×2 (01:03→11:00)
[2018-09-04] MEDS ORDERED: ALBUTEROL/IPRATROPIUM 2.5MG/0.5MG, 3 ML NPPB PRN (01:30)
[2018-09-04 02:20] VITALS: BP 149/98
[2018-09-04 02:34] LABS: FREE T4 (FREE THYROXINE) 1.22 ng/dL (0.76-1.46); THYROID STIMULATING HORMONE 3.51 mIU/L (0.358-3.740)
[2018-09-04 02:37] LABS: HEMOGLOBIN A1C 5.8 % (4.2-6.3)
[2018-09-04] MEDS ORDERED: LORazepam 2 MG/ML, 1ML IV PRN ×4 (04:00)
[2018-09-04] MEDS ORDERED: LORazepam 0.5MG TABLET PO PRN (04:00)
[2018-09-04] MEDS ORDERED: LORazepam 1MG TABLET PO PRN ×3 (04:00)
[2018-09-04] MEDS: LORazepam 2 MG/ML, 1ML IV PRN ×2 (04:11→05:57)
[2018-09-04] MEDS: ENOXAPARIN 40 MG/0.4 ML SQ SCH (05:55)
[2018-09-04] MEDS: ALBUTEROL/IPRATROPIUM 2.5MG/0.5MG, 3 ML NPPB SCH ×4 (07:05→19:22)
[2018-09-04 08:51] VITALS: BP 142/89
[2018-09-04] MEDS: LOSARTAN 25MG TABLET PO SCH (09:15)
[2018-09-04 12:38] VITALS: BP 128/85
[2018-09-04 18:41] VITALS: BP 121/83
[2018-09-04 20:52] VITALS: BP 175/75
[2018-09-04] MEDS: CEFTRIAXONE PMX 2GM/50ML 50 ML IV SCH (22:05)
[2018-09-04] MEDS ORDERED: MAGNESIUM SULFATE PMX 2GM/50ML 50 ML IV ONE (22:30)
[2018-09-05 00:44] VITALS: BP 135/85
[2018-09-05 06:01] LABS: BASOPHILS % (AUTO) 0 % (0-1); EOSINOPHILS % (AUTO) 0 % (1-7); LYMPHOCYTES # (AUTO) 0.41 x10^3/uL (1-3.4); LYMPHOCYTES % (AUTO) 7 % (22-44); MD NO; MEAN CORPUSCULAR HEMOGLOBIN 34.9 pg (27.5-34.5); MEAN CORPUSCULAR HGB CONC 33.5 g/dL (33.2-36.2); MEAN CORPUSCULAR VOLUME 104.2 fL (81-97); MEAN PLATELET VOLUME 8.3 fL (7.4-10.4); MONOCYTES # (AUTO) 0.22 x10^3/uL (0.2-0.8); MONOCYTES % (AUTO) 4 % (2-9); NEUTROPHILS # (AUTO) 5.11 x10^3/uL (1.8-6.8); NEUTROPHILS % (AUTO) 89 % (42-75); PLATELET COUNT 152 x10^3/uL (130-400); RED BLOOD COUNT 3.45 x10^6/uL (4.38-5.82); RED CELL DISTRIBUTION WIDTH 18.7 % (9.4-14.8)
[2018-09-05] MEDS: ENOXAPARIN 40 MG/0.4 ML SQ SCH (06:02)
[2018-09-05 06:09] LABS: CHLORIDE 101 mmol/L (98-107)
[2018-09-05 06:18] LABS: ALANINE AMINOTRANSFERASE 27 U/L (12-78); ALBUMIN 2.4 g/dL (3.4-5.0); ALKALINE PHOSPHATASE 112 U/L (45-117); ANION GAP 7 mmol/L (5-15); BILIRUBIN,TOTAL 0.3 mg/dL (0.2-1.0); CALCIUM 7.9 mg/dL (8.5-10.1); CHOL/HDL RATIO 2.5; CHOLESTEROL, TOTAL 131 mg/dL (140-239); CREATININE 0.34 mg/dL (0.7-1.3); HDL CHOL % 40 % (26-37); HDL CHOLESTEROL (DIRECT) 53 mg/dL (40-60); LDL CHOLESTEROL,CALCULATED 69 mg/dL (54-169); LDL/HDL RATIO 1.3 (0.5-3.0); TOTAL PROTEIN 5.7 g/dL (6.4-8.2); TRIGLYCERIDES 43 mg/dL (50-200); VLDL CHOLESTEROL 9 mg/dL (0-25)
[2018-09-05 07:05] VITALS: BP 148/99
[2018-09-05] MEDS: ALBUTEROL/IPRATROPIUM 2.5MG/0.5MG, 3 ML NPPB SCH ×4 (08:30→19:45)
[2018-09-05] MEDS: LOSARTAN 25MG TABLET PO SCH (08:48)
[2018-09-05] MEDS: FLUTICASONE/VILANTEROL 200-25MCG/INH INH SCH (14:46)
[2018-09-05] MEDS: methylPREDNISolone SOD SUCC 125 MG/2 ML IVPush SCH ×2 (14:46→21:44)
[2018-09-05] MEDS: LORazepam 1MG TABLET PO PRN ×2 (17:50→21:46)
[2018-09-05 19:41] VITALS: BP 137/78
[2018-09-05] MEDS: CEFTRIAXONE PMX 2GM/50ML 50 ML IV SCH (21:44)
[2018-09-05] MEDS: SIMVASTATIN 20 MG TABLET PO SCH (21:44)
[2018-09-06] MEDS: methylPREDNISolone SOD SUCC 125 MG/2 ML IVPush SCH ×2 (03:07→08:14)
[2018-09-06 03:08] VITALS: BP 149/76
[2018-09-06] MEDS: ENOXAPARIN 40 MG/0.4 ML SQ SCH (06:01)
[2018-09-06 07:10] VITALS: BP 154/90
[2018-09-06] MEDS: ALBUTEROL/IPRATROPIUM 2.5MG/0.5MG, 3 ML NPPB SCH ×2 (07:30→11:47)
[2018-09-06] MEDS: FLUTICASONE/VILANTEROL 200-25MCG/INH INH SCH (08:22)
[2018-09-06] MEDS: LOSARTAN 25MG TABLET PO SCH (08:23)
[2018-09-06] MEDS ORDERED: LOSA25TA2 PO (10:08)
[2018-09-06] MEDS ORDERED: PRED5TAB PO (10:08)
[2018-09-06] MEDS ORDERED: CEFD300C37 PO (10:08)
[2018-09-06] MEDS ORDERED: IPRA3AMP30 NPPB (10:08)
[2018-09-06] MEDS ORDERED: SIMV20TA3 PO (10:08)
[2018-09-06] MEDS ORDERED: FLUT1BLS INH (10:08)
== END 2018-09-06 13:04 | disposition home or self-care (01) | DRG 871 ==
LOC: ED 18:29 → EDIP 22:04 → 4WST 22:57
PROVIDERS: ADMIT Internal Medicine; ATTEND Family Medicine
DX: A41.9 Sepsis, unspecified organism (principal); J15.9 Unspecified bacterial pneumonia; J96.01 Acute respiratory failure with hypoxia; E44.0 Moderate protein-calorie malnutrition; E87.1 Hypo-osmolality and hyponatremia; J44.0 Chronic obstructive pulmonary disease with (acute) lower respiratory infection; J44.1 Chronic obstructive pulmonary disease with (acute) exacerbation; F17.200 Nicotine dependence, unspecified, uncomplicated; I87.2 Venous insufficiency (chronic) (peripheral); I10 Essential (primary) hypertension; F12.90 Cannabis use, unspecified, uncomplicated; E87.6 Hypokalemia; E78.5 Hyperlipidemia, unspecified; K76.0 Fatty (change of) liver, not elsewhere classified; Z68.25 Body mass index [BMI] 25.0-25.9, adult; Z91.013 Allergy to seafood; Z91.018 Allergy to other foods; Z87.11 Personal history of peptic ulcer disease; Z91.14 Patient's other noncompliance with medication regimen; Z99.81 Dependence on supplemental oxygen; Z90.49 Acquired absence of other specified parts of digestive tract; Z87.01 Personal history of pneumonia (recurrent)
CPT/HCPCS: 36415; 87400; 99291; J7620; 71045; 71275; 80053; 80061; 83036; 83605; 83735; 83880; 84439; 84443; 84484; 85025; 85379; 87040; 87070; 87205; 90656; 93005; 94640; G0378; J0696; J1650; J3480; Q9967; J2060; J2930; J3475; J7030; J7040; J7512

== ENCOUNTER 2018-09-13 03:06 | Emergency (ER) | payer MEDICAID ==
[~2018-09-13] VITALS: Ht 190.5 cm; Wt 82.9 kg
[~2018-09-13 03:06] MED LIST changes: +IPRA3AMP30 NPPB; +LOSA25TA2 PO; +PRED5TAB PO; +SIMV20TA3 PO
[2018-09-13] MEDS ORDERED: IBUPROFEN 200 MG TABLET PO ONE (03:30)
[2018-09-13] MEDS ORDERED: ACETAMINOPHEN 500 MG TABLET PO ONE (03:30)
[2018-09-13 03:45] LABS: MEAN CORPUSCULAR HEMOGLOBIN 34.7 pg (27.5-34.5); MEAN CORPUSCULAR HGB CONC 33.6 g/dL (33.2-36.2); MEAN CORPUSCULAR VOLUME 103.3 fL (81-97); MEAN PLATELET VOLUME 7.2 fL (7.4-10.4); PLATELET COUNT 308 x10^3/uL (130-400); RED BLOOD COUNT 4.07 x10^6/uL (4.38-5.82); RED CELL DISTRIBUTION WIDTH 17.3 % (9.4-14.8)
[2018-09-13] MEDS ORDERED: IBUPROFEN 600 MG TABLET ONE (03:50)
[2018-09-13] MEDS ORDERED: ACETAMINOPHEN 500 MG TABLET ONE (03:50)
[2018-09-13 03:53] LABS: ANION GAP 10 mmol/L (5-15); CALCIUM 8.4 mg/dL (8.5-10.1); CHLORIDE 95 mmol/L (98-107); CREATININE 0.75 mg/dL (0.7-1.3)
[2018-09-13 04:20] LABS: BASOPHILS # (AUTO) 0.07 x10^3/uL (0-0.1); BASOPHILS % (AUTO) 1 % (0-1); EOSINOPHILS # (AUTO) 0.55 x10^3/uL (0-0.4); EOSINOPHILS % (AUTO) 4 % (1-7); LYMPHOCYTES # (AUTO) 2.23 x10^3/uL (1-3.4); LYMPHOCYTES % (AUTO) 17 % (22-44); MD SCAN; MONOCYTES # (AUTO) 1.48 x10^3/uL (0.2-0.8); MONOCYTES % (AUTO) 11 % (2-9); NEUTROPHILS # (AUTO) 8.77 x10^3/uL (1.8-6.8); NEUTROPHILS % (AUTO) 67 % (42-75)
[2018-09-13 04:47] VITALS: BP 132/89
== END 2018-09-13 04:49 | disposition home or self-care (01) ==
LOC: ED 04:09
DX: M25.561 Pain in right knee (principal); M25.562 Pain in left knee; M79.661 Pain in right lower leg; M79.662 Pain in left lower leg; F17.200 Nicotine dependence, unspecified, uncomplicated; J43.9 Emphysema, unspecified
CPT/HCPCS: 36415; 80048; 82040; 82330; 85025; 99284

== ENCOUNTER 2018-10-31 15:38 | Emergency (ER) | payer MEDICAID ==
[2018-10-31] MEDS ORDERED: ALBUTEROL/IPRATROPIUM 2.5MG/0.5MG, 3 ML NPPB SCH (16:00)
[2018-10-31] MEDS ORDERED: ALBUTEROL/IPRATROPIUM 2.5MG/0.5MG, 3 ML ONE ×2 (16:04→16:15)
[2018-10-31 16:14] LABS: BASOPHILS # (AUTO) 0.03 x10^3/uL (0-0.1); BASOPHILS % (AUTO) 0 % (0-1); EOSINOPHILS # (AUTO) 0.13 x10^3/uL (0-0.4); EOSINOPHILS % (AUTO) 2 % (1-7); LYMPHOCYTES # (AUTO) 2.75 x10^3/uL (1-3.4); LYMPHOCYTES % (AUTO) 31 % (22-44); MD NO; MEAN CORPUSCULAR HEMOGLOBIN 33.7 pg (27.5-34.5); MEAN CORPUSCULAR HGB CONC 33.1 g/dL (33.2-36.2); MEAN CORPUSCULAR VOLUME 101.9 fL (81-97); MEAN PLATELET VOLUME 7.9 fL (7.4-10.4); MONOCYTES # (AUTO) 0.97 x10^3/uL (0.2-0.8); MONOCYTES % (AUTO) 11 % (2-9); NEUTROPHILS # (AUTO) 4.96 x10^3/uL (1.8-6.8); NEUTROPHILS % (AUTO) 56 % (42-75); PLATELET COUNT 239 x10^3/uL (130-400); RED BLOOD COUNT 4.45 x10^6/uL (4.38-5.82)
[2018-10-31 16:27] LABS: ALBUMIN 2.9 g/dL (3.4-5.0); ANION GAP 9 mmol/L (5-15); CALCIUM 7.8 mg/dL (8.5-10.1); CHLORIDE 90 mmol/L (98-107)
[2018-10-31 16:33] LABS: ALANINE AMINOTRANSFERASE 152 U/L (12-78); ALKALINE PHOSPHATASE 206 U/L (45-117); TOTAL PROTEIN 6.7 g/dL (6.4-8.2); TROPONIN I < 0.015 ng/mL (0.000-0.045)
--- NOTE | 2018-10-31 16:46 | NUR ---
PT'S CHART UP FOR RECHECK
--- NOTE | 2018-10-31 17:04 | NUR ---
PT. IS RESTING WITHOUT CONCERNS.
[2018-10-31] MEDS ORDERED: ALBUTEROL SULFATE 2.5 MG/3 ML NPPB ONE ×2 (17:30→18:00)
--- NOTE | 2018-10-31 17:34 | NUR ---
PT. IS REQUESTING A BREATHING TX. DISCUSSED WITH DR. BARAJAS. ORDER RECEIVED. RT CALLED.
[2018-10-31] MEDS ORDERED: ALBUTEROL SULFATE 2.5 MG/3 ML ONE (17:46)
[2018-10-31] MEDS ORDERED: PLEASE ENTER WEIGHT MC SCH (18:00)
[2018-10-31 18:13] VITALS: BP 110/80
--- NOTE | 2018-10-31 18:13 | NUR ---
Patient/Caregiver given discharge instructions and they have confirmed that they understand the instructions. Patient ambulatory with steady gait.
== END 2018-10-31 18:26 | disposition home or self-care (01) ==
LOC: ED 17:46
DX: J44.1 Chronic obstructive pulmonary disease with (acute) exacerbation (principal); F17.200 Nicotine dependence, unspecified, uncomplicated; Z90.89 Acquired absence of other organs
CPT/HCPCS: 36415; 71046; 80053; 83880; 84484; 85025; 93005; 94640; 99284; J7512; J7613; J7620

== ENCOUNTER 2018-11-20 17:13 | Inpatient (IN) | payer MEDICAID ==
[~2018-11-20] VITALS: Ht 190.5 cm; Wt 80.8 kg
[2018-11-20] MEDS ORDERED: ALBUTEROL SULFATE 2.5 MG/3 ML NPPB ONE (18:00)
[2018-11-20] MEDS ORDERED: ALBUTEROL 0.5%, 20ML ONE (18:08)
--- NOTE | 2018-11-20 18:18 | NUR ---
PT PLACED ON CONTINOUS NEP TX
--- NOTE | 2018-11-20 18:33 | NUR ---
EASED RESP EFFORT W NEB TX
--- NOTE | 2018-11-20 19:50 | NUR ---
PT SATING 79% ON RA. ERP AWARE, DC CANCELLED AT THIS TIME.
[2018-11-20] MEDS ORDERED: ALBUTEROL/IPRATROPIUM 2.5MG/0.5MG, 3 ML NPPB SCH (20:00)
[2018-11-20] MEDS ORDERED: SODIUM CHLORIDE FLUSH 10ML SYR IVF ONE (20:00)
[2018-11-20] MEDS ORDERED: ALBUTEROL/IPRATROPIUM 2.5MG/0.5MG, 3 ML ONE (20:09)
[2018-11-20] MEDS ORDERED: BUDESONIDE 0.5 MG/2 ML INHA ONE (20:16)
[2018-11-20 20:17] LABS: BASOPHILS # (AUTO) 0.01 x10^3/uL (0-0.1); BASOPHILS % (AUTO) 0 % (0-1); EOSINOPHILS # (AUTO) 0.02 x10^3/uL (0-0.4); EOSINOPHILS % (AUTO) 1 % (1-7); LYMPHOCYTES # (AUTO) 1.08 x10^3/uL (1-3.4); LYMPHOCYTES % (AUTO) 20 % (22-44); MD NO; MEAN CORPUSCULAR HEMOGLOBIN 33.9 pg (27.5-34.5); MEAN CORPUSCULAR HGB CONC 32.9 g/dL (33.2-36.2); MEAN CORPUSCULAR VOLUME 103.3 fL (81-97); MEAN PLATELET VOLUME 9.3 fL (7.4-10.4); MONOCYTES # (AUTO) 0.59 x10^3/uL (0.2-0.8); MONOCYTES % (AUTO) 11 % (2-9); NEUTROPHILS # (AUTO) 3.67 x10^3/uL (1.8-6.8); NEUTROPHILS % (AUTO) 68 % (42-75); PLATELET COUNT 136 x10^3/uL (130-400); RED BLOOD COUNT 4.19 x10^6/uL (4.38-5.82); RED CELL DISTRIBUTION WIDTH 18.2 % (9.4-14.8)
[2018-11-20 20:23] LABS: ALBUMIN 3.2 g/dL (3.4-5.0); ANION GAP 12 mmol/L (5-15); CALCIUM 7.8 mg/dL (8.5-10.1); CHLORIDE 90 mmol/L (98-107); CREATININE 0.47 mg/dL (0.7-1.3)
[2018-11-20] MEDS ORDERED: PREDNISONE PO (20:24)
[2018-11-20] MEDS ORDERED: methylPREDNISolone SOD SUCC 125 MG/2 ML IVPush ONE (21:30)
[2018-11-20] MEDS ORDERED: POLYETHYLENE GLYCOL 17 GM PACKET PO PRN (21:30)
[2018-11-20] MEDS ORDERED: BISACODYL 10 MG SUPP PR PRN (21:30)
[2018-11-20] MEDS ORDERED: ONDANSETRON ODT 4 MG PO PRN (21:30)
[2018-11-20] MEDS ORDERED: ACETAMINOPHEN 325 MG TABLET PO PRN (21:30)
--- NOTE | 2018-11-20 21:53 | NUR ---
REPORT TO MELO LUNA.
[2018-11-20] MEDS ORDERED: POTASSIUM CHLORIDE 20 MEQ TAB.ER.PRT ONE (21:55)
[2018-11-20] MEDS ORDERED: methylPREDNISolone SOD SUCC 125 MG/2 ML ONE (21:55)
[2018-11-20] MEDS ORDERED: POTASSIUM CHLORIDE 20 MEQ TAB.ER.PRT PO ONE (22:00)
[2018-11-20 22:10] LABS: FOLATE LEVEL 15.1 ng/mL (3.1-17.5)
[2018-11-20] MEDS: HEPARIN 5,000 UNITS/ML, 1ML SQ SCH (22:31)
[2018-11-20] MEDS: NS + 20MEQ KCL 1,000 ML IV SCH (22:32)
[2018-11-20 22:41] VITALS: BP 151/95
[2018-11-21] MEDS ORDERED: ALBUTEROL/IPRATROPIUM 2.5MG/0.5MG, 3 ML NPPB PRN (00:30)
[2018-11-21 01:15] VITALS: BP 145/105
[2018-11-21 01:30] VITALS: BP 163/81
[2018-11-21] MEDS: methylPREDNISolone SOD SUCC 125 MG/2 ML IVPush SCH ×4 (04:30→22:23)
[2018-11-21] MEDS: ALBUTEROL/IPRATROPIUM 2.5MG/0.5MG, 3 ML NPPB SCH ×5 (05:15→22:40)
[2018-11-21 05:40] LABS: CHLORIDE 96 mmol/L (98-107)
[2018-11-21 05:48] LABS: ALANINE AMINOTRANSFERASE 133 U/L (12-78); ALBUMIN 2.9 g/dL (3.4-5.0); ALKALINE PHOSPHATASE 149 U/L (45-117); ANION GAP 6 mmol/L (5-15); BILIRUBIN,TOTAL 0.9 mg/dL (0.2-1.0); CREATININE 0.48 mg/dL (0.7-1.3); TOTAL PROTEIN 6.2 g/dL (6.4-8.2)
[2018-11-21 05:50] LABS: MEAN CORPUSCULAR HGB CONC 34.1 g/dL (33.2-36.2); MEAN CORPUSCULAR VOLUME 102.7 fL (81-97); PLATELET COUNT 121 x10^3/uL (130-400); RED BLOOD COUNT 3.86 x10^6/uL (4.38-5.82); RED CELL DISTRIBUTION WIDTH 17.9 % (9.4-14.8)
[2018-11-21 06:09] LABS: BASOPHILS # (AUTO) 0.01 x10^3/uL (0-0.1); BASOPHILS % (AUTO) 0 % (0-1); EOSINOPHILS % (AUTO) 0 % (1-7); LYMPHOCYTES # (AUTO) 0.33 x10^3/uL (1-3.4); LYMPHOCYTES % (AUTO) 16 % (22-44); MD SCAN; MONOCYTES # (AUTO) 0.06 x10^3/uL (0.2-0.8); MONOCYTES % (AUTO) 3 % (2-9); NEUTROPHILS # (AUTO) 1.73 x10^3/uL (1.8-6.8); NEUTROPHILS % (AUTO) 81 % (42-75)
[2018-11-21 06:35] VITALS: BP 133/84
[2018-11-21] MEDS: BUDESONIDE 0.5 MG/2 ML INHA NPPB SCH ×2 (07:50→19:10)
[2018-11-21 08:38] LABS: FREE T4 (FREE THYROXINE) 1.3 ng/dL (0.76-1.46)
[2018-11-21] MEDS: HEPARIN 5,000 UNITS/ML, 1ML SQ SCH ×2 (09:00→17:20)
[2018-11-21] MEDS: SENNA/DOCUSATE TABLET PO SCH (09:00)
[2018-11-21] MEDS: NS + 20MEQ KCL 1,000 ML IV SCH ×2 (09:00→20:03)
[2018-11-21 12:35] VITALS: BP 154/96
[2018-11-21] MEDS: AMLODIPINE 2.5 MG TABLET PO SCH (12:40)
[2018-11-21] MEDS ORDERED: LORazepam 0.5MG TABLET PO PRN (13:00)
[2018-11-21] MEDS ORDERED: LORazepam 1MG TABLET PO PRN ×4 (13:00)
[2018-11-21 13:22] LABS: BASOPHILS # (AUTO) 0.01 x10^3/uL (0-0.1); BASOPHILS % (AUTO) 0 % (0-1); EOSINOPHILS % (AUTO) 0 % (1-7); LYMPHOCYTES # (AUTO) 0.33 x10^3/uL (1-3.4); LYMPHOCYTES % (AUTO) 10 % (22-44); MD NO; MEAN CORPUSCULAR HEMOGLOBIN 34.3 pg (27.5-34.5); MEAN CORPUSCULAR HGB CONC 33.3 g/dL (33.2-36.2); MEAN CORPUSCULAR VOLUME 102.9 fL (81-97); MEAN PLATELET VOLUME 9.2 fL (7.4-10.4); MONOCYTES # (AUTO) 0.22 x10^3/uL (0.2-0.8); MONOCYTES % (AUTO) 6 % (2-9); NEUTROPHILS # (AUTO) 2.86 x10^3/uL (1.8-6.8); NEUTROPHILS % (AUTO) 84 % (42-75); PLATELET COUNT 137 x10^3/uL (130-400); RED BLOOD COUNT 3.91 x10^6/uL (4.38-5.82); RED CELL DISTRIBUTION WIDTH 17.7 % (9.4-14.8)
[2018-11-21 13:25] LABS: ALANINE AMINOTRANSFERASE 140 U/L (12-78); ANION GAP 6 mmol/L (5-15); CALCIUM 7.8 mg/dL (8.5-10.1); CHLORIDE 96 mmol/L (98-107); CREATININE 0.53 mg/dL (0.7-1.3)
[2018-11-21 13:26] LABS: D-DIMER 0.54 ug/mlFEU (0.00-0.52); INTERNATIONAL NORMALIZED RATIO 1.08 (0.93-1.1); PROTHROMBIN TIME 11.4 Seconds (9.6-11.5)
[2018-11-21 13:27] LABS: ALKALINE PHOSPHATASE 154 U/L (45-117); BILIRUBIN,TOTAL 0.9 mg/dL (0.2-1.0); TOTAL PROTEIN 6.5 g/dL (6.4-8.2)
[2018-11-21] MEDS: FOLIC ACID 1 MG TABLET PO SCH (13:39)
[2018-11-21] MEDS: THIAMINE 100MG TABLET PO SCH (13:39)
[2018-11-21 20:16] VITALS: BP 170/111
[2018-11-21] MEDS ORDERED: hydrALAzine 20 MG/ML, 1ML IV PRN (20:30)
[2018-11-21] MEDS ORDERED: NAPHAZOLINE/PHENIRAMINE OPHTH EACHEYE PRN (20:30)
[2018-11-22 01:16] VITALS: BP 149/86
[2018-11-22] MEDS: methylPREDNISolone SOD SUCC 125 MG/2 ML IVPush SCH ×4 (04:59→21:39)
[2018-11-22] MEDS: HEPARIN 5,000 UNITS/ML, 1ML SQ SCH ×3 (04:59→20:40)
[2018-11-22] MEDS: ALBUTEROL/IPRATROPIUM 2.5MG/0.5MG, 3 ML NPPB SCH ×5 (05:16→23:20)
[2018-11-22] MEDS: NS + 20MEQ KCL 1,000 ML IV SCH (05:59)
[2018-11-22 06:55] VITALS: BP 146/82
[2018-11-22] MEDS ORDERED: MAGNESIUM SULFATE PMX 2GM/50ML 50 ML IV ONE (07:30)
[2018-11-22] MEDS ORDERED: NICOTINE 14MG/24 HR PATCH.TD24 TD ONE (07:30)
[2018-11-22] MEDS ORDERED: MAGNESIUM SULFATE PMX 4GM/100M 100 ML IVPB ONE (07:30)
[2018-11-22] MEDS ORDERED: SODIUM PHOSPHATE 4 MEQ/ML IV SCH (07:30)
[2018-11-22] MEDS ORDERED: POTASSIUM PHOSPHATE 44 MEQ in SODIUM CHLORIDE 0.9% 500 ML IV ONE (07:30)
[2018-11-22] MEDS ORDERED: SODIUM PHOSPHATE 30 MMOL in SODIUM CHLORIDE 0.9% 500 ML IV ONE (07:30)
[2018-11-22] MEDS: SENNA/DOCUSATE TABLET PO SCH (09:00)
[2018-11-22] MEDS: FOLIC ACID 1 MG TABLET PO SCH (09:31)
[2018-11-22] MEDS: AMLODIPINE 2.5 MG TABLET PO SCH (09:31)
[2018-11-22] MEDS: THIAMINE 100MG TABLET PO SCH (09:31)
[2018-11-22] MEDS: BUDESONIDE 0.5 MG/2 ML INHA NPPB SCH ×2 (10:22→18:20)
[2018-11-22 13:50] VITALS: BP 143/89
[2018-11-22 16:45] VITALS: BP 169/100
[2018-11-22] MEDS ORDERED: OMNIPAQUE 350 MG/ML, 100ML BOTTLE ONE (16:55)
[2018-11-22] MEDS: NEUTRA PHOS K 250 MG TABLET PO SCH ×2 (17:44→20:40)
[2018-11-22] MEDS ORDERED: CEFTRIAXONE PMX 1GM/50ML 50 ML IV SCH (18:30)
[2018-11-22 18:45] VITALS: BP 169/100
[2018-11-22] MEDS: DOXYCYCLINE 100MG TABLET PO SCH (20:40)
[2018-11-23 03:30] VITALS: BP 148/96
[2018-11-23] MEDS: methylPREDNISolone SOD SUCC 125 MG/2 ML IVPush SCH ×2 (04:15→10:30)
[2018-11-23 04:57] LABS: BASOPHILS % (AUTO) 0 % (0-1); EOSINOPHILS % (AUTO) 0 % (1-7); LYMPHOCYTES # (AUTO) 0.63 x10^3/uL (1-3.4); LYMPHOCYTES % (AUTO) 11 % (22-44); MD NO; MEAN CORPUSCULAR HEMOGLOBIN 34.4 pg (27.5-34.5); MEAN CORPUSCULAR HGB CONC 33.7 g/dL (33.2-36.2); MEAN CORPUSCULAR VOLUME 102.1 fL (81-97); MEAN PLATELET VOLUME 8.6 fL (7.4-10.4); MONOCYTES # (AUTO) 0.58 x10^3/uL (0.2-0.8); MONOCYTES % (AUTO) 11 % (2-9); NEUTROPHILS # (AUTO) 4.29 x10^3/uL (1.8-6.8); NEUTROPHILS % (AUTO) 78 % (42-75); PLATELET COUNT 161 x10^3/uL (130-400); RED BLOOD COUNT 3.96 x10^6/uL (4.38-5.82); RED CELL DISTRIBUTION WIDTH 17.7 % (9.4-14.8)
[2018-11-23 05:02] LABS: ALBUMIN 3.1 g/dL (3.4-5.0); ANION GAP 7 mmol/L (5-15); CALCIUM 7.7 mg/dL (8.5-10.1); CHLORIDE 94 mmol/L (98-107); CREATININE 0.42 mg/dL (0.7-1.3)
[2018-11-23] MEDS ORDERED: MAGNESIUM SULFATE PMX 2GM/50ML 50 ML IV ONE (07:00)
[2018-11-23] MEDS ORDERED: POTASSIUM CHLORIDE 20 MEQ TAB.ER.PRT PO ONE ×2 (07:00→11:30)
[2018-11-23] MEDS: ALBUTEROL/IPRATROPIUM 2.5MG/0.5MG, 3 ML NPPB SCH ×3 (07:09→13:57)
[2018-11-23] MEDS: BUDESONIDE 0.5 MG/2 ML INHA NPPB SCH (07:09)
[2018-11-23 07:22] VITALS: BP 168/104
[2018-11-23] MEDS: HEPARIN 5,000 UNITS/ML, 1ML SQ SCH (08:00)
[2018-11-23] MEDS ORDERED: PRED10TA PO (08:05)
[2018-11-23] MEDS ORDERED: IPRA3AMP30 NPPB (08:05)
[2018-11-23] MEDS ORDERED: THIA100T67 PO (08:05)
[2018-11-23] MEDS ORDERED: AMLO2.5T5 PO (08:05)
[2018-11-23] MEDS ORDERED: TIOT18CA INH (08:07)
[2018-11-23] MEDS ORDERED: BUDE10.2 INH (08:07)
[2018-11-23] MEDS: NEUTRA PHOS K 250 MG TABLET PO SCH (08:11)
[2018-11-23] MEDS: SENNA/DOCUSATE TABLET PO SCH (08:11)
[2018-11-23] MEDS: FOLIC ACID 1 MG TABLET PO SCH (08:11)
[2018-11-23] MEDS: AMLODIPINE 2.5 MG TABLET PO SCH (08:11)
[2018-11-23] MEDS: THIAMINE 100MG TABLET PO SCH (08:11)
[2018-11-23] MEDS: DOXYCYCLINE 100MG TABLET PO SCH (08:11)
[2018-11-23] MEDS ORDERED: CEFD300C37 PO (10:44)
[2018-11-23] MEDS ORDERED: DOXY100C2 PO (10:44)
[2018-11-23] MEDS ORDERED: CEFTRIAXONE PMX 1GM/50ML 50 ML IV SCH (11:00)
[2018-11-23 13:00] VITALS: BP 172/105
== END 2018-11-23 15:09 | disposition home or self-care (01) | DRG 189 ==
LOC: ED 18:45 → EDIP 21:33 → 3NE 22:04
PROVIDERS: ADMIT Family Medicine; ATTEND Family Medicine
DX: J96.01 Acute respiratory failure with hypoxia (principal); R65.11 Systemic inflammatory response syndrome (SIRS) of non-infectious origin with acute organ dysfunction; E44.1 Mild protein-calorie malnutrition; E87.1 Hypo-osmolality and hyponatremia; J44.1 Chronic obstructive pulmonary disease with (acute) exacerbation; D75.89 Other specified diseases of blood and blood-forming organs; E78.5 Hyperlipidemia, unspecified; E87.6 Hypokalemia; F12.90 Cannabis use, unspecified, uncomplicated; F17.210 Nicotine dependence, cigarettes, uncomplicated; I10 Essential (primary) hypertension; K76.0 Fatty (change of) liver, not elsewhere classified; Z68.22 Body mass index [BMI] 22.0-22.9, adult; Z87.11 Personal history of peptic ulcer disease; Z90.49 Acquired absence of other specified parts of digestive tract; Z90.89 Acquired absence of other organs
CPT/HCPCS: 36415; 84145; 99291; J7620; J7626; 71045; 71275; 76700; 80048; 80053; 82040; 82607; 82746; 83605; 83735; 84100; 84439; 84443; 85025; 85379; 85610; 93005; 93306; 94640; 94644; 96374; G0378; J0696; J1644; J3480; Q9967; J0360; J2930; J3475; J7040; J7512

== ENCOUNTER 2018-12-15 13:37 | Emergency (ER) | payer MEDICAID ==
[~2018-12-15] VITALS: Ht 182.9 cm; Wt 82.0 kg
[~2018-12-15 13:37] MED LIST changes: +AMLO2.5T5 PO; +BUDE10.2 INH; +DOXY100C2 PO; +PREDNISONE PO
[2018-12-15] MEDS ORDERED: ALBUTEROL SULFATE 2.5 MG/3 ML NPPB ONE (14:00)
[2018-12-15] MEDS ORDERED: ALBUTEROL SULFATE 2.5 MG/3 ML ONE (14:11)
[2018-12-15 14:18] LABS: BASOPHILS # (AUTO) 0.04 x10^3/uL (0-0.1); BASOPHILS % (AUTO) 1 % (0-1); EOSINOPHILS # (AUTO) 0.04 x10^3/uL (0-0.4); EOSINOPHILS % (AUTO) 1 % (1-7); LYMPHOCYTES # (AUTO) 1.12 x10^3/uL (1-3.4); LYMPHOCYTES % (AUTO) 13 % (22-44); MD NO; MEAN CORPUSCULAR HEMOGLOBIN 33.6 pg (27.5-34.5); MEAN CORPUSCULAR HGB CONC 32.4 g/dL (33.2-36.2); MEAN CORPUSCULAR VOLUME 103.6 fL (81-97); MEAN PLATELET VOLUME 8.5 fL (7.4-10.4); MONOCYTES # (AUTO) 0.44 x10^3/uL (0.2-0.8); MONOCYTES % (AUTO) 5 % (2-9); NEUTROPHILS # (AUTO) 7.05 x10^3/uL (1.8-6.8); NEUTROPHILS % (AUTO) 81 % (42-75); PLATELET COUNT 235 x10^3/uL (130-400); RED BLOOD COUNT 4.43 x10^6/uL (4.38-5.82); RED CELL DISTRIBUTION WIDTH 15.5 % (9.4-14.8)
[2018-12-15 14:26] LABS: ALBUMIN 3.6 g/dL (3.4-5.0); ANION GAP 7 mmol/L (5-15); CALCIUM 9.2 mg/dL (8.5-10.1); CHLORIDE 103 mmol/L (98-107); CREATININE 0.61 mg/dL (0.7-1.3)
--- NOTE | 2018-12-15 15:06 | NUR ---
HERE FOR RX REFILL:"ALBUTEROL TUBES FOR NEBULIZER"
[2018-12-15] MEDS ORDERED: SIMV40TA3 PO (15:12)
[2018-12-15 15:14] VITALS: BP 119/85
== END 2018-12-15 15:20 | disposition home or self-care (01) ==
LOC: ED 14:22
DX: J44.1 Chronic obstructive pulmonary disease with (acute) exacerbation (principal); Z90.89 Acquired absence of other organs; Z72.9 Problem related to lifestyle, unspecified
CPT/HCPCS: 36415; 71046; 80048; 82040; 85025; 93005; 94640; 99284; J7613

== ENCOUNTER 2019-01-14 11:56 | Emergency (ER) | payer MEDICAID, OTHER ==
[~2019-01-14] VITALS: Ht 190.5 cm; Wt 76.0 kg
[~2019-01-14 11:56] MED LIST changes: +SIMV40TA3 PO
[2019-01-14 12:43] LABS: BASOPHILS # (AUTO) 0.08 x10^3/uL (0-0.1); BASOPHILS % (AUTO) 1 % (0-1); EOSINOPHILS # (AUTO) 0.08 x10^3/uL (0-0.4); EOSINOPHILS % (AUTO) 1 % (1-7); LYMPHOCYTES # (AUTO) 1.76 x10^3/uL (1-3.4); LYMPHOCYTES % (AUTO) 19 % (22-44); MD NO; MEAN CORPUSCULAR HEMOGLOBIN 33.5 pg (27.5-34.5); MEAN CORPUSCULAR VOLUME 98.6 fL (81-97); MEAN PLATELET VOLUME 8.6 fL (7.4-10.4); MONOCYTES # (AUTO) 1.15 x10^3/uL (0.2-0.8); MONOCYTES % (AUTO) 12 % (2-9); NEUTROPHILS # (AUTO) 6.28 x10^3/uL (1.8-6.8); NEUTROPHILS % (AUTO) 67 % (42-75); PLATELET COUNT 285 x10^3/uL (130-400); RED BLOOD COUNT 4.83 x10^6/uL (4.38-5.82); RED CELL DISTRIBUTION WIDTH 14.6 % (9.4-14.8)
[2019-01-14 12:54] LABS: ALBUMIN 3.5 g/dL (3.4-5.0); ANION GAP 5 mmol/L (5-15); CALCIUM 9.1 mg/dL (8.5-10.1); CHLORIDE 99 mmol/L (98-107)
[2019-01-14 12:57] LABS: CREATININE 0.68 mg/dL (0.7-1.3)
--- NOTE | 2019-01-14 13:28 | NUR ---
TO ROOM FROM LOBBY. NAD.
[2019-01-14] MEDS ORDERED: ALBUTEROL/IPRATROPIUM 2.5MG/0.5MG, 3 ML ONE ×2 (13:44→13:53)
--- NOTE | 2019-01-14 13:44 | NUR ---
ASSUMED CARE. PT. IS A & O X 4 WITH C/O SOB X 3 DAYS. PT. RAN OUT OF HIS MEDICATION. 12 LEAD EKG WAS DONE. CP MONITOR IS IN PLACE. PT. HAS EXSPIRATORY WHEEZING THROUGHOUT. RT IS AT THE BEDSIDE GIVING THE PT. A TREATMENT. MEDICATIONS GIVEN ORDERED.
[2019-01-14] MEDS: ALBUTEROL/IPRATROPIUM 2.5MG/0.5MG, 3 ML NPPB SCH ×2 (13:51→13:54)
[2019-01-14 14:44] VITALS: BP 99/73
--- NOTE | 2019-01-14 14:45 | NUR ---
BREAK RN: PT SITTING ON GURNEY, NO ACUTE DISTRESS NOTED. STATES "FEELS BETTER, I'M HUNGRY AND READY TO GO" ST PER MONITOR, AUTO BP AND PULSE OX IN PLACE.
--- NOTE | 2019-01-14 14:56 | NUR ---
REVIEWED DC INSTRUCTIONS WITH PT, UNDERSTANDING VERBALIZED. NO IV TO DC. PT LEFT AMB, GAIT STEADY,.
== END 2019-01-14 14:57 | disposition home or self-care (01) ==
LOC: ED 14:23
DX: J43.9 Emphysema, unspecified (principal); Z72.9 Problem related to lifestyle, unspecified; Z87.891 Personal history of nicotine dependence; Z90.89 Acquired absence of other organs
CPT/HCPCS: 36415; 71046; 80048; 82040; 85025; 93005; 94640; 99284; J7512; J7620

== ENCOUNTER 2019-02-26 12:38 | Emergency (ER) | payer MEDICAID ==
[~2019-02-26] VITALS: Ht 190.5 cm; Wt 82.0 kg
--- NOTE | 2019-02-26 13:14 | NUR ---
CONTACT WITH PT. 53 YR OLD MALE HERE WITH C/O "I HAVE COPD AND I'M HAVING A FLARE UP" THIS EPISODE HAS BEEN GOING ON FOR 2 DAYS. RAN OUT OF INHALER YESTERDAY.
[2019-02-26] MEDS ORDERED: ALBUTEROL/IPRATROPIUM 2.5MG/0.5MG, 3 ML NPPB ONE (13:30)
[2019-02-26] MEDS ORDERED: ALBUTEROL/IPRATROPIUM 2.5MG/0.5MG, 3 ML ONE (13:41)
--- NOTE | 2019-02-26 14:40 | NUR ---
PT RESPIRATORY STATUES IMPROVED. NO IV TO DC, REVIEWED DC INSTRUCTIONS WITH PT, UNDERSTANDING VERBALIZED, PT LEFT AMB, GAIT STEADY.
[2019-02-26 14:42] VITALS: BP 142/99
== END 2019-02-26 14:44 | disposition home or self-care (01) ==
LOC: ED 14:28
DX: J44.1 Chronic obstructive pulmonary disease with (acute) exacerbation (principal); Z76.0 Encounter for issue of repeat prescription; I10 Essential (primary) hypertension
CPT/HCPCS: 94640; 99283; J7620

== ENCOUNTER 2019-03-21 20:02 | Emergency (ER) | payer MEDICAID ==
[~2019-03-21] VITALS: Ht 190.5 cm; Wt 80.0 kg
[2019-03-21 20:33] LABS: BASOPHILS # (AUTO) 0.09 x10^3/uL (0-0.1); BASOPHILS % (AUTO) 1 % (0-1); EOSINOPHILS # (AUTO) 0.22 x10^3/uL (0-0.4); EOSINOPHILS % (AUTO) 2 % (1-7); LYMPHOCYTES # (AUTO) 3.38 x10^3/uL (1-3.4); LYMPHOCYTES % (AUTO) 33 % (22-44); MD NO; MEAN CORPUSCULAR HEMOGLOBIN 31.7 pg (27.5-34.5); MEAN CORPUSCULAR HGB CONC 32.3 g/dL (33.2-36.2); MEAN CORPUSCULAR VOLUME 98.2 fL (81-97); MEAN PLATELET VOLUME 8.3 fL (7.4-10.4); MONOCYTES # (AUTO) 1.38 x10^3/uL (0.2-0.8); MONOCYTES % (AUTO) 13 % (2-9); NEUTROPHILS # (AUTO) 5.18 x10^3/uL (1.8-6.8); NEUTROPHILS % (AUTO) 51 % (42-75); PLATELET COUNT 274 x10^3/uL (130-400); RED BLOOD COUNT 5.16 x10^6/uL (4.38-5.82); RED CELL DISTRIBUTION WIDTH 14.2 % (9.4-14.8)
[2019-03-21 20:44] LABS: ALBUMIN 3.7 g/dL (3.4-5.0); ANION GAP 11 mmol/L (5-15); CALCIUM 9.1 mg/dL (8.5-10.1); CHLORIDE 103 mmol/L (98-107); CREATININE 0.71 mg/dL (0.7-1.3)
[2019-03-21 20:48] LABS: TROPONIN I < 0.015 ng/mL (0.000-0.045)
[2019-03-21] MEDS ORDERED: ALBUTEROL SULFATE 2.5 MG/3 ML ONE (21:08)
[2019-03-21] MEDS ORDERED: ALBUTEROL/IPRATROPIUM 2.5MG/0.5MG, 3 ML ONE ×2 (21:09)
[2019-03-21] MEDS: ALBUTEROL/IPRATROPIUM 2.5MG/0.5MG, 3 ML NPPB SCH ×2 (21:14→21:22)
--- NOTE | 2019-03-21 21:40 | NUR ---
PT ASSISTED WITH URINAL. POC DISCUSSED. PT STATES HE IS FEELING BETTER. PT DENIES FURTHER NEEDS AT THIS TIME.
--- NOTE | 2019-03-21 22:04 | NUR ---
PT STATING HER FEELS BETTER AND IS READY FOR DC. PA INFORMED. PT TBDC
[2019-03-21 22:23] VITALS: BP 145/88
== END 2019-03-21 22:25 | disposition home or self-care (01) ==
LOC: ED 20:43
DX: J44.1 Chronic obstructive pulmonary disease with (acute) exacerbation (principal); Z76.0 Encounter for issue of repeat prescription; R06.00 Dyspnea, unspecified; Z72.9 Problem related to lifestyle, unspecified; I10 Essential (primary) hypertension
CPT/HCPCS: 36415; 71046; 80048; 82040; 83880; 84484; 85025; 93005; 94640; 99284; J7512; J7620

== ENCOUNTER 2019-04-11 20:55 | Inpatient (IN) | payer MEDICAID ==
[~2019-04-11] VITALS: Ht 190.5 cm; Wt 78.7 kg
--- NOTE | 2019-04-11 20:57 | NUR ---
PT IN RESTROOM WHEN CALLED FOR TRIAGE
[2019-04-11] MEDS ORDERED: ALBUTEROL/IPRATROPIUM 2.5MG/0.5MG, 3 ML ONE ×4 (21:15→22:26)
[2019-04-11] MEDS ORDERED: ALBUTEROL (21:20)
--- NOTE | 2019-04-11 21:21 | NUR ---
VERY PLEASANT GENTLEMAN HERE NOTING THAT HE HAS RUN OUT OF HIS INHALERS, HAS HISTORY SIGNIFICANT FOR COPD, HAS CUT BACK ON SMOKING, HOWEVER CONTINUES HAVING THREE A DAY, UPON ARRIVAL TO ROOM PT IS PALE, DIAPHORETIC, SpO2 88% ON 2L, AFTER SITTING FOR A BIT SPO2 UP TO 95%. IV START, LABS DRAWN, CXR DONE, RT TO BEDSIDE.
[2019-04-11 21:23] LABS: BASOPHILS # (AUTO) 0.08 x10^3/uL (0-0.1); BASOPHILS % (AUTO) 1 % (0-1); EOSINOPHILS # (AUTO) 0.26 x10^3/uL (0-0.4); EOSINOPHILS % (AUTO) 3 % (1-7); LYMPHOCYTES # (AUTO) 3.25 x10^3/uL (1-3.4); LYMPHOCYTES % (AUTO) 35 % (22-44); MD NO; MEAN CORPUSCULAR HEMOGLOBIN 31.9 pg (27.5-34.5); MEAN CORPUSCULAR HGB CONC 32.7 g/dL (33.2-36.2); MEAN CORPUSCULAR VOLUME 97.7 fL (81-97); MONOCYTES # (AUTO) 1.16 x10^3/uL (0.2-0.8); MONOCYTES % (AUTO) 12 % (2-9); NEUTROPHILS # (AUTO) 4.66 x10^3/uL (1.8-6.8); NEUTROPHILS % (AUTO) 50 % (42-75); PLATELET COUNT 216 x10^3/uL (130-400); RED BLOOD COUNT 5.15 x10^6/uL (4.38-5.82); RED CELL DISTRIBUTION WIDTH 14.9 % (9.4-14.8)
[2019-04-11] MEDS ORDERED: methylPREDNISolone SOD SUCC 40 MG/ML ONE (21:25)
[2019-04-11] MEDS ORDERED: ALBUTEROL SULFATE 2.5 MG/3 ML NPPB ONE ×2 (21:30→22:30)
[2019-04-11] MEDS ORDERED: methylPREDNISolone SOD SUCC 125 MG/2 ML IVP ONE (21:30)
--- NOTE | 2019-04-11 21:34 | NUR ---
PT IMPROVING WITH BREATHING TREATMENT. PLEASANT GENTLEMAN
[2019-04-11 21:37] LABS: ALANINE AMINOTRANSFERASE 34 U/L (12-78); ALBUMIN 3.9 g/dL (3.4-5.0); ANION GAP 6 mmol/L (5-15); CALCIUM 9.1 mg/dL (8.5-10.1); CHLORIDE 103 mmol/L (98-107); CREATININE 0.67 mg/dL (0.7-1.3)
[2019-04-11 21:41] LABS: ALKALINE PHOSPHATASE 122 U/L (45-117); BILIRUBIN,TOTAL 0.3 mg/dL (0.2-1.0); TOTAL PROTEIN 7.5 g/dL (6.4-8.2); TROPONIN I < 0.015 ng/mL (0.000-0.045)
--- NOTE | 2019-04-11 21:52 | NUR ---
PT REPORTS THAT HE IS FEELING MUCH BETTER AT THIS TIME, SPO2 88% AT THIS TIME. WILL CONTINUE TO MONITOR.
[2019-04-11] MEDS ORDERED: SODIUM CHLORIDE 0.9% 1,000 ML IV SCH (22:18)
--- NOTE | 2019-04-11 22:23 | NUR ---
DR MARIE AT BEDSIDE. RTR CALLED TO COME REPEAT NEB
[2019-04-11] MEDS ORDERED: OXYcodone IR 5MG TABLET PO PRN (22:30)
[2019-04-11] MEDS ORDERED: BISACODYL 10 MG SUPP PR PRN (22:30)
[2019-04-11] MEDS ORDERED: TEMPLATE NON-FORMULARY MED. (Budesonide/Formoterol Fumarate (Symbicort 160-4.5 Mcg Inhaler INH SCH (22:30)
[2019-04-11] MEDS ORDERED: ALBUTEROL/IPRATROPIUM 2.5MG/0.5MG, 3 ML NEB ONE (22:30)
[2019-04-11] MEDS ORDERED: morphine SULFATE 10 MG/ML, 1ML IVPush PRN (22:30)
[2019-04-11] MEDS ORDERED: DOCUSATE 100 MG CAPSULE PO PRN (22:30)
[2019-04-11] MEDS ORDERED: POLYETHYLENE GLYCOL 17 GM PACKET PO PRN (22:30)
[2019-04-11] MEDS ORDERED: ALBUTEROL SULFATE 2.5 MG/3 ML ONE (22:33)
[2019-04-11 22:54] LABS: FREE T4 (FREE THYROXINE) 1.07 ng/dL (0.76-1.46); THYROID STIMULATING HORMONE 5.53 mIU/L (0.358-3.740)
[2019-04-11 22:55] VITALS: BP 150/94
[2019-04-11] MEDS ORDERED: IPRATROPIUM 0.5 MG/2.5 ML INHA NPPB PRN (23:00)
[2019-04-11] MEDS: ALBUTEROL SULFATE 2.5 MG/3 ML NPPB SCH (23:00)
[2019-04-11] MEDS: NICOTINE 7 MG/24 HR PATCH.TD24 TD SCH (23:30)
[2019-04-11] MEDS: SIMVASTATIN 20 MG TABLET PO SCH (23:44)
[2019-04-11] MEDS: methylPREDNISolone SOD SUCC 125 MG/2 ML IVPush SCH (23:44)
[2019-04-11] MEDS: DOXYCYCLINE 100MG TABLET PO SCH (23:45)
[2019-04-11] MEDS: ENOXAPARIN 40 MG/0.4 ML SQ SCH (23:45)
[2019-04-12] VITALS (7 sets, daily range): BP systolic 122–171; BP diastolic 81–110
[2019-04-12 04:28] LABS: MEAN CORPUSCULAR HEMOGLOBIN 32.4 pg (27.5-34.5); MEAN CORPUSCULAR HGB CONC 33.1 g/dL (33.2-36.2); MEAN CORPUSCULAR VOLUME 97.8 fL (81-97); MEAN PLATELET VOLUME 8.3 fL (7.4-10.4); PLATELET COUNT 179 x10^3/uL (130-400); RED BLOOD COUNT 4.76 x10^6/uL (4.38-5.82); RED CELL DISTRIBUTION WIDTH 14.8 % (9.4-14.8)
[2019-04-12 04:40] LABS: ALBUMIN 3.5 g/dL (3.4-5.0); ANION GAP 7 mmol/L (5-15); CALCIUM 8.6 mg/dL (8.5-10.1); CHLORIDE 103 mmol/L (98-107)
[2019-04-12 04:44] LABS: ALANINE AMINOTRANSFERASE 29 U/L (12-78); ALKALINE PHOSPHATASE 98 U/L (45-117); BILIRUBIN,TOTAL 0.3 mg/dL (0.2-1.0); CHOL/HDL RATIO 1.7; CHOLESTEROL, TOTAL 178 mg/dL (140-239); CREATININE 0.61 mg/dL (0.7-1.3); HDL CHOL % 58 % (26-37); HDL CHOLESTEROL (DIRECT) 104 mg/dL (40-60); LDL CHOLESTEROL,CALCULATED 67 mg/dL (54-169); LDL/HDL RATIO 0.6 (0.5-3.0); TRIGLYCERIDES 33 mg/dL (50-200); VLDL CHOLESTEROL 7 mg/dL (0-25)
[2019-04-12 04:48] LABS: BASOPHILS # (AUTO) 0.01 x10^3/uL (0-0.1); BASOPHILS % (AUTO) 0 % (0-1); EOSINOPHILS % (AUTO) 0 % (1-7); LYMPHOCYTES # (AUTO) 0.29 x10^3/uL (1-3.4); LYMPHOCYTES % (AUTO) 7 % (22-44); MD SCAN; MONOCYTES # (AUTO) 0.02 x10^3/uL (0.2-0.8); MONOCYTES % (AUTO) 1 % (2-9); NEUTROPHILS # (AUTO) 3.64 x10^3/uL (1.8-6.8); NEUTROPHILS % (AUTO) 92 % (42-75)
[2019-04-12] MEDS: methylPREDNISolone SOD SUCC 125 MG/2 ML IVPush SCH ×3 (04:51→18:43)
[2019-04-12] MEDS: ALBUTEROL SULFATE 2.5 MG/3 ML NPPB SCH ×5 (05:00→20:00)
[2019-04-12] MEDS: DOXYCYCLINE 100MG TABLET PO SCH ×2 (07:50→19:54)
[2019-04-12] MEDS: hydrALAzine 20 MG/ML, 1ML IVPush PRN (07:50)
[2019-04-12] MEDS: BUDESONIDE 0.5 MG/2 ML INHA NPPB SCH ×2 (08:20→21:00)
[2019-04-12] MEDS ORDERED: AMLODIPINE 2.5 MG TABLET PO SCH (09:00)
[2019-04-12] MEDS ORDERED: LORazepam 2 MG/ML, 1ML IV PRN ×4 (09:30)
[2019-04-12] MEDS ORDERED: LORazepam 1MG TABLET PO PRN ×4 (09:30)
[2019-04-12] MEDS: AMLODIPINE 5 MG TABLET PO SCH ×2 (12:32→19:53)
[2019-04-12] MEDS: LORazepam 0.5MG TABLET PO PRN (12:32)
[2019-04-12] MEDS: SIMVASTATIN 20 MG TABLET PO SCH (19:54)
[2019-04-12] MEDS: NICOTINE 7 MG/24 HR PATCH.TD24 TD SCH (22:15)
[2019-04-13] VITALS: BP 163/106
[2019-04-13] MEDS: methylPREDNISolone SOD SUCC 125 MG/2 ML IVPush SCH ×3 (00:12→13:37)
[2019-04-13] MEDS: ENOXAPARIN 40 MG/0.4 ML SQ SCH (00:12)
[2019-04-13] MEDS: LORazepam 2 MG/ML, 1ML IV PRN ×2 (00:12→03:01)
[2019-04-13] MEDS: hydrALAzine 20 MG/ML, 1ML IVPush PRN (00:13)
[2019-04-13 01:12] VITALS: BP 144/82
[2019-04-13] MEDS: LORazepam 0.5MG TABLET PO PRN (05:39)
[2019-04-13 06:48] VITALS: BP 146/81
[2019-04-13] MEDS: ALBUTEROL SULFATE 2.5 MG/3 ML NPPB SCH ×3 (07:05→14:15)
[2019-04-13] MEDS: BUDESONIDE 0.5 MG/2 ML INHA NPPB SCH (09:00)
[2019-04-13] MEDS: DOXYCYCLINE 100MG TABLET PO SCH (10:42)
[2019-04-13] MEDS: AMLODIPINE 5 MG TABLET PO SCH (10:42)
[2019-04-13 12:12] VITALS: BP 148/93
[2019-04-13] MEDS ORDERED: SIMV40TA3 PO (13:59)
[2019-04-13] MEDS ORDERED: PRED5TAB PO (13:59)
[2019-04-13] MEDS ORDERED: ALBU2.5V NPPB (13:59)
[2019-04-13] MEDS ORDERED: ALBU8.5H8 INH (13:59)
[2019-04-13] MEDS ORDERED: BUDE0.5A NPPB (13:59)
[2019-04-13] MEDS ORDERED: DOXY100T PO (13:59)
[2019-04-13] MEDS ORDERED: AMLO-150 PO (13:59)
== END 2019-04-13 15:51 | disposition home or self-care (01) | DRG 189 ==
LOC: ED 21:38 → EDIP 22:06 → 4WST 22:57 → UNDODISIN 04-13 14:50 → DCLOUNGE 04-13 15:39
PROVIDERS: ADMIT Internal Medicine; ATTEND Internal Medicine
DX: J96.01 Acute respiratory failure with hypoxia (principal); E78.5 Hyperlipidemia, unspecified; F17.210 Nicotine dependence, cigarettes, uncomplicated; I10 Essential (primary) hypertension; J20.9 Acute bronchitis, unspecified; J43.9 Emphysema, unspecified; K74.60 Unspecified cirrhosis of liver; K76.0 Fatty (change of) liver, not elsewhere classified; Z87.11 Personal history of peptic ulcer disease; Z91.013 Allergy to seafood; Z91.018 Allergy to other foods
CPT/HCPCS: 36415; J7613; J7620; J7626; 71045; 80053; 80061; 83036; 83735; 84439; 84443; 84484; 85025; 93005; 94640; G0378; J1650; J0360; J2060; J2930; J7030

== ENCOUNTER 2019-06-13 04:37 | Emergency (ER) | payer MEDICAID ==
[~2019-06-13] VITALS: Ht 190.5 cm; Wt 79.9 kg
[2019-06-13 06:33] VITALS: BP 132/62
== END 2019-06-13 06:36 | disposition home or self-care (01) ==
LOC: ED 06:04
DX: J44.1 Chronic obstructive pulmonary disease with (acute) exacerbation (principal); I10 Essential (primary) hypertension; Z90.49 Acquired absence of other specified parts of digestive tract; F17.210 Nicotine dependence, cigarettes, uncomplicated
CPT/HCPCS: 36415; 71045; 80048; 82040; 85025; 93005; 94640; 99284; J7512

== ENCOUNTER 2019-07-04 17:57 | Inpatient (IN) | payer MEDICAID ==
[~2019-07-04] VITALS: Ht 190.5 cm; Wt 74.6 kg
[~2019-07-04 17:57] MED LIST changes: +ALBU2.5V NPPB; +ALBU8.5H8 INH; +ALBUTEROL; +AMLO-150 PO; +BUDE0.5A NPPB; +DOXY100T PO
[2019-07-04] MEDS ORDERED: ALBUTEROL/IPRATROPIUM 2.5MG/0.5MG, 3 ML ONE ×2 (18:17→19:30)
[2019-07-04] MEDS ORDERED: ALBUTEROL/IPRATROPIUM 2.5MG/0.5MG, 3 ML NEB ONE (18:30)
--- NOTE | 2019-07-04 19:01 | NUR ---
Pt presents to ED with c/o sob and difficulty breathing and speaking in full sentences. Pt has history of COPD. NADN. No needs expressed. Pt resting on gurney connected to director of vendor management, nibp cuff, and contious pulse ox, call light within reach. Pt recieved one treatment by RT.
--- NOTE | 2019-07-04 19:02 | NUR ---
Provided bedside report to JEREMY Kinsey, all questions answered, NADN, no needs expressed, JEREMY Kinsey to assume care of pt at this time.
--- NOTE | 2019-07-04 19:24 | NUR ---
EDMD AT BEDSIDE SPEAKING TO PATIENT. PT UPDATED ON POC. CALL LIGHT WITHIN REACH. PT REPORTS FEELING A LITTLE BETTER AFTER TREATMENT. NO FURTHER NEEDS.
[2019-07-04] MEDS ORDERED: ALBUTEROL SULFATE 2.5 MG/3 ML NPPB ONE (19:30)
--- NOTE | 2019-07-04 19:34 | NUR ---
RT AT BEDSIDE
--- NOTE | 2019-07-04 20:18 | NUR ---
PT REPORTS FEELING ABOUT THE SAME AFTER LAST BREATHING TREATMENT. MD NOTIFIED
[2019-07-04] MEDS ORDERED: methylPREDNISolone SOD SUCC 125 MG/2 ML IVPush ONE (20:30)
[2019-07-04] MEDS ORDERED: methylPREDNISolone SOD SUCC 125 MG/2 ML ONE (20:33)
[2019-07-04 20:41] LABS: BASOPHILS # (AUTO) 0.06 x10^3/uL (0-0.1); BASOPHILS % (AUTO) 1 % (0-1); EOSINOPHILS # (AUTO) 0.14 x10^3/uL (0-0.4); EOSINOPHILS % (AUTO) 3 % (1-7); LYMPHOCYTES # (AUTO) 1.94 x10^3/uL (1-3.4); LYMPHOCYTES % (AUTO) 39 % (22-44); MD NO; MEAN CORPUSCULAR HEMOGLOBIN 32.8 pg (27.5-34.5); MEAN CORPUSCULAR HGB CONC 33.5 g/dL (33.2-36.2); MEAN CORPUSCULAR VOLUME 97.8 fL (81-97); MEAN PLATELET VOLUME 7.6 fL (7.4-10.4); MONOCYTES # (AUTO) 0.83 x10^3/uL (0.2-0.8); MONOCYTES % (AUTO) 17 % (2-9); NEUTROPHILS # (AUTO) 2.02 x10^3/uL (1.8-6.8); NEUTROPHILS % (AUTO) 41 % (42-75); PLATELET COUNT 124 x10^3/uL (130-400); RED BLOOD COUNT 4.51 x10^6/uL (4.38-5.82); RED CELL DISTRIBUTION WIDTH 17.1 % (9.4-14.8)
[2019-07-04 20:50] LABS: ANION GAP 8 mmol/L (5-15); CALCIUM 8.1 mg/dL (8.5-10.1); CHLORIDE 100 mmol/L (98-107); CREATININE 0.66 mg/dL (0.7-1.3)
[2019-07-04 21:53] VITALS: BP 146/97
[2019-07-04] MEDS: AZITHROMYCIN 500 MG in SODIUM CHLORIDE 0.9% 250 ML IV SCH (22:29)
[2019-07-04] MEDS ORDERED: ALBUTEROL SULFATE 2.5 MG/3 ML NPPB PRN (23:00)
[2019-07-04] MEDS: ALBUTEROL/IPRATROPIUM 2.5MG/0.5MG, 3 ML NPPB SCH (23:00)
[2019-07-05] MEDS: methylPREDNISolone SOD SUCC 125 MG/2 ML IVPush SCH ×4 (02:06→22:14)
[2019-07-05 02:08] VITALS: BP 167/84
[2019-07-05] MEDS: ALBUTEROL/IPRATROPIUM 2.5MG/0.5MG, 3 ML NPPB SCH ×3 (03:00→11:13)
[2019-07-05 04:40] LABS: PH, VENOUS 7.423 pH (7.320-7.420)
[2019-07-05 04:51] LABS: MEAN CORPUSCULAR HEMOGLOBIN 33.2 pg (27.5-34.5); MEAN CORPUSCULAR HGB CONC 33.7 g/dL (33.2-36.2); MEAN CORPUSCULAR VOLUME 98.4 fL (81-97); MEAN PLATELET VOLUME 8.3 fL (7.4-10.4); PLATELET COUNT 112 x10^3/uL (130-400); RED BLOOD COUNT 4.65 x10^6/uL (4.38-5.82); RED CELL DISTRIBUTION WIDTH 16.9 % (9.4-14.8)
[2019-07-05 04:58] LABS: ANION GAP 11 mmol/L (5-15); CALCIUM 8.6 mg/dL (8.5-10.1); CHLORIDE 100 mmol/L (98-107); CREATININE 0.67 mg/dL (0.7-1.3)
[2019-07-05 06:02] LABS: BASOPHILS % (AUTO) 0 % (0-1); EOSINOPHILS % (AUTO) 0 % (1-7); LYMPHOCYTES # (AUTO) 0.19 x10^3/uL (1-3.4); LYMPHOCYTES % (AUTO) 7 % (22-44); MD SCAN; MONOCYTES # (AUTO) 0.02 x10^3/uL (0.2-0.8); MONOCYTES % (AUTO) 1 % (2-9); NEUTROPHILS # (AUTO) 2.36 x10^3/uL (1.8-6.8); NEUTROPHILS % (AUTO) 92 % (42-75)
[2019-07-05] MEDS ORDERED: ALBUTEROL SULFATE 2.5 MG/3 ML NPPB SCH (07:00)
[2019-07-05 08:00] VITALS: BP 162/101
[2019-07-05] MEDS: ACETAMINOPHEN 325 MG TABLET PO PRN (12:06)
[2019-07-05 14:56] VITALS: BP 164/97
[2019-07-05] MEDS: IPRATROPIUM 0.5 MG/2.5 ML INHA NPPB SCH ×2 (15:10→22:30)
[2019-07-05] MEDS ORDERED: IPRATROPIUM 0.5 MG/2.5 ML INHA ONE (15:19)
[2019-07-05] MEDS ORDERED: ALBUTEROL/IPRATROPIUM 2.5MG/0.5MG, 3 ML NPPB SCH (16:00)
[2019-07-05 19:40] VITALS: BP_SYST 166; BP_SYST 173; BP_DIAS 103; BP_DIAS 105
[2019-07-05] MEDS: AZITHROMYCIN 500 MG in SODIUM CHLORIDE 0.9% 250 ML IV SCH (22:13)
[2019-07-06 01:21] VITALS: BP_SYST 165; BP_SYST 174; BP_DIAS 101; BP_DIAS 106
[2019-07-06] MEDS ORDERED: hydrALAzine 20 MG/ML, 1ML IV ONE (02:00)
[2019-07-06] MEDS: IPRATROPIUM 0.5 MG/2.5 ML INHA NPPB SCH ×4 (02:21→20:21)
[2019-07-06] MEDS: methylPREDNISolone SOD SUCC 125 MG/2 ML IVPush SCH ×3 (05:00→22:05)
[2019-07-06 05:06] VITALS: BP 154/94
[2019-07-06 09:08] VITALS: BP 160/100
[2019-07-06] MEDS: LISINOPRIL 20 MG TABLET PO SCH ×2 (09:11→22:05)
[2019-07-06] MEDS: AMLODIPINE 5 MG TABLET PO SCH (09:11)
[2019-07-06] MEDS: ACETAMINOPHEN 325 MG TABLET PO PRN ×2 (10:24→22:05)
[2019-07-06 13:53] VITALS: BP 130/80
[2019-07-06 19:28] VITALS: BP 146/93
[2019-07-06] MEDS: AZITHROMYCIN 500 MG in SODIUM CHLORIDE 0.9% 250 ML IV SCH (22:06)
[2019-07-07] MEDS: IPRATROPIUM 0.5 MG/2.5 ML INHA NPPB SCH ×2 (02:30→08:45)
[2019-07-07 02:57] VITALS: BP 139/88
[2019-07-07] MEDS: methylPREDNISolone SOD SUCC 125 MG/2 ML IVPush SCH ×2 (03:01→08:34)
[2019-07-07 06:35] VITALS: BP 143/89
[2019-07-07] MEDS: AMLODIPINE 5 MG TABLET PO SCH (08:34)
[2019-07-07] MEDS: LISINOPRIL 20 MG TABLET PO SCH (08:34)
[2019-07-07] MEDS ORDERED: PRED10TA PO (13:02)
[2019-07-07] MEDS ORDERED: LISI-170 PO (13:02)
[2019-07-07] MEDS ORDERED: AMLO-150 PO (13:02)
[2019-07-07] MEDS ORDERED: FLUT1DIS3 INH (13:02)
[2019-07-07] MEDS ORDERED: AZIT500T PO (13:02)
[2019-07-07] MEDS ORDERED: TIOT18CA INH (13:02)
== END 2019-07-07 13:18 | disposition home or self-care (01) | DRG 189 ==
LOC: ED 18:42 → EDIP 20:53 → 4WST 22:02
PROVIDERS: ADMIT Internal Medicine; ATTEND Internal Medicine
DX: J96.01 Acute respiratory failure with hypoxia (principal); J44.1 Chronic obstructive pulmonary disease with (acute) exacerbation; E78.5 Hyperlipidemia, unspecified; F17.210 Nicotine dependence, cigarettes, uncomplicated; I10 Essential (primary) hypertension; K74.60 Unspecified cirrhosis of liver; K76.0 Fatty (change of) liver, not elsewhere classified; Z82.49 Family history of ischemic heart disease and other diseases of the circulatory system; Z87.11 Personal history of peptic ulcer disease; Z90.49 Acquired absence of other specified parts of digestive tract
CPT/HCPCS: 36415; 99291; J7613; J7620; J7644; 71045; 80048; 82803; 85025; 94640; G0378; J0456; J0360; J2930; J7050

== ENCOUNTER 2019-09-04 05:34 | Observation (INO) | payer MEDICAID ==
[~2019-09-04] VITALS: Ht 190.5 cm; Wt 76.8 kg
[~2019-09-04 05:34] MED LIST changes: +FLUT1DIS3 INH; +LISI-170 PO; +PRED20TA PO
--- NOTE | 2019-09-04 05:45 | NUR ---
Pt presents to ed c/o bilateral knee pain "that woke me up out of my sleep." Painful upon palpation and w/ movement. Has full rom noted. Pt hx of copd and sob this am as well. Pt in mid 80's on ra for remsa. Given a duoneb and an albuterol tx. Pt on ra upon admit and sating mid to high 90's. Pt denies cp. Pt states he is breathing much better. All monitoring applied. Pt tachycardic. Md at bedside for assessment.
[2019-09-04] MEDS ORDERED: LORazepam 2 MG/ML, 1ML ONE (05:55)
[2019-09-04] MEDS ORDERED: ONDANSETRON 2MG/ML, 2ML ONE (05:55)
[2019-09-04] MEDS ORDERED: methylPREDNISolone SOD SUCC 125 MG/2 ML ONE (05:55)
[2019-09-04] MEDS ORDERED: SODIUM CHLORIDE FLUSH 10ML SYR IVF ONE (06:00)
[2019-09-04] MEDS ORDERED: ONDANSETRON 2MG/ML, 2ML IVPush ONE (06:00)
[2019-09-04] MEDS ORDERED: methylPREDNISolone SOD SUCC 125 MG/2 ML IV ONE (06:00)
[2019-09-04] MEDS ORDERED: LORazepam 2 MG/ML, 1ML IVPush ONE (06:00)
--- NOTE | 2019-09-04 06:15 | NUR ---
Pt placed on 2 L per nc for o2 sat settling into mid 80's.
[2019-09-04 06:29] LABS: BASOPHILS # (AUTO) 0.12 x10^3/uL (0-0.1); BASOPHILS % (AUTO) 1 % (0-1); EOSINOPHILS # (AUTO) 0.01 x10^3/uL (0-0.4); EOSINOPHILS % (AUTO) 0 % (1-7); LYMPHOCYTES # (AUTO) 2.11 x10^3/uL (1-3.4); LYMPHOCYTES % (AUTO) 13 % (22-44); MD NO; MEAN CORPUSCULAR HGB CONC 32.9 g/dL (33.2-36.2); MEAN CORPUSCULAR VOLUME 100.2 fL (81-97); MEAN PLATELET VOLUME 7.6 fL (7.4-10.4); MONOCYTES # (AUTO) 0.97 x10^3/uL (0.2-0.8); MONOCYTES % (AUTO) 6 % (2-9); NEUTROPHILS # (AUTO) 12.73 x10^3/uL (1.8-6.8); NEUTROPHILS % (AUTO) 80 % (42-75); PLATELET COUNT 274 x10^3/uL (130-400); RED BLOOD COUNT 4.44 x10^6/uL (4.38-5.82); RED CELL DISTRIBUTION WIDTH 16.1 % (9.4-14.8)
[2019-09-04 06:39] LABS: ALANINE AMINOTRANSFERASE 132 U/L (12-78); ALBUMIN 3.4 g/dL (3.4-5.0); ANION GAP 4 mmol/L (5-15); CALCIUM 8.9 mg/dL (8.5-10.1); CHLORIDE 102 mmol/L (98-107); CREATININE 0.72 mg/dL (0.7-1.3)
[2019-09-04 06:43] LABS: ALKALINE PHOSPHATASE 100 U/L (45-117); BILIRUBIN,TOTAL 0.6 mg/dL (0.2-1.0); TOTAL PROTEIN 6.4 g/dL (6.4-8.2); TROPONIN I < 0.015 ng/mL (0.000-0.045)
--- NOTE | 2019-09-04 06:51 | NUR ---
Pt report to No everett.
--- NOTE | 2019-09-04 07:13 | NUR ---
REPORT TAKEN FROM JEREMY CHAPMAN. PT RESTING ON Offerial. VSS. LEONE. CALL LIGHT IN REACH.
[2019-09-04] MEDS ORDERED: BLOOD PRESSURE MED (07:14)
[2019-09-04] MEDS ORDERED: ASA/APAP/ CAFFEINE TABLET PO PRN (07:30)
[2019-09-04] MEDS ORDERED: ACETAMINOPHEN 325 MG TABLET PO PRN (07:30)
[2019-09-04] MEDS ORDERED: POTASSIUM CHLORIDE 20 MEQ in LACTATED RINGERS 1,000 ML IV ONE (07:30)
[2019-09-04] MEDS ORDERED: SODIUM CHLORIDE FLUSH 10ML SYR IVF PRN (07:30)
--- NOTE | 2019-09-04 07:57 | NUR ---
REPORT GIVEN TO JEREMY AGUILAR.
[2019-09-04 08:24] VITALS: BP 151/93
[2019-09-04] MEDS ORDERED: ALBUTEROL SULFATE 2.5 MG/3 ML ONE (08:59)
[2019-09-04] MEDS ORDERED: POLYETHYLENE GLYCOL 17 GM PACKET PO PRN (09:00)
[2019-09-04] MEDS ORDERED: ALBUTEROL SULFATE 2.5 MG/3 ML NPPB PRN (09:30)
[2019-09-04] MEDS: ENOXAPARIN 30 MG/0.3 ML SQ SCH ×2 (09:33→21:14)
[2019-09-04] MEDS: DOXYCYCLINE 100MG CAP PO SCH ×2 (09:33→21:13)
[2019-09-04 10:20] VITALS: BP 151/93
[2019-09-04] MEDS: CARVEDILOL 3.125 MG TABLET PO SCH ×2 (10:20→17:55)
[2019-09-04] MEDS ORDERED: LORazepam 2 MG/ML, 1ML IVPush PRN (10:30)
[2019-09-04] MEDS ORDERED: ONDANSETRON 2MG/ML, 2ML IVPush PRN (12:00)
[2019-09-04] MEDS ORDERED: ONDANSETRON ODT 4 MG PO PRN (12:00)
[2019-09-04 12:38] VITALS: BP_SYST 167; BP_DIAS 105; BP_DIAS 108
[2019-09-04] MEDS: hydrALAzine 20 MG/ML, 1ML IVPush PRN ×2 (12:48→23:45)
[2019-09-04] MEDS: methylPREDNISolone SOD SUCC 125 MG/2 ML IVPush SCH ×2 (14:15→21:14)
[2019-09-04 14:20] VITALS: BP 163/89
[2019-09-04] MEDS: ALBUTEROL SULFATE 2.5 MG/3 ML NPPB SCH ×3 (15:46→22:14)
[2019-09-04 19:08] VITALS: BP 166/87
[2019-09-04] MEDS ORDERED: TRAZODONE 50MG TABLET PO PRN (21:00)
[2019-09-04 23:30] VITALS: BP 160/112
[2019-09-05 00:49] VITALS: BP 155/90
[2019-09-05 05:14] LABS: MEAN CORPUSCULAR HEMOGLOBIN 33.3 pg (27.5-34.5); MEAN CORPUSCULAR HGB CONC 33.5 g/dL (33.2-36.2); MEAN CORPUSCULAR VOLUME 99.4 fL (81-97); MEAN PLATELET VOLUME 7.7 fL (7.4-10.4); PLATELET COUNT 238 x10^3/uL (130-400); RED BLOOD COUNT 4.38 x10^6/uL (4.38-5.82); RED CELL DISTRIBUTION WIDTH 16.1 % (9.4-14.8)
[2019-09-05 05:19] LABS: CHLORIDE 97 mmol/L (98-107)
[2019-09-05 05:24] LABS: ANION GAP 6 mmol/L (5-15); CALCIUM 8.7 mg/dL (8.5-10.1); CREATININE 0.55 mg/dL (0.7-1.3)
[2019-09-05] MEDS: methylPREDNISolone SOD SUCC 125 MG/2 ML IVPush SCH ×3 (05:53→21:10)
[2019-09-05] MEDS: CARVEDILOL 3.125 MG TABLET PO SCH ×2 (05:53→17:48)
[2019-09-05 06:06] LABS: BASOPHILS % (AUTO) 0 % (0-1); EOSINOPHILS % (AUTO) 0 % (1-7); LYMPHOCYTES # (AUTO) 0.68 x10^3/uL (1-3.4); LYMPHOCYTES % (AUTO) 4 % (22-44); MD SCAN; MONOCYTES # (AUTO) 0.26 x10^3/uL (0.2-0.8); MONOCYTES % (AUTO) 2 % (2-9); NEUTROPHILS # (AUTO) 14.59 x10^3/uL (1.8-6.8); NEUTROPHILS % (AUTO) 94 % (42-75)
[2019-09-05 06:33] VITALS: BP 164/100
[2019-09-05] MEDS: ALBUTEROL SULFATE 2.5 MG/3 ML NPPB SCH ×4 (07:02→21:00)
[2019-09-05] MEDS: DOXYCYCLINE 100MG CAP PO SCH ×2 (08:28→21:10)
[2019-09-05] MEDS: ENOXAPARIN 30 MG/0.3 ML SQ SCH ×2 (08:29→21:10)
[2019-09-05] MEDS ORDERED: MAGNESIUM SULFATE PMX 2GM/50ML 50 ML IV ONE (10:00)
[2019-09-05 12:54] VITALS: BP 156/87
[2019-09-05 18:35] VITALS: BP 154/99
[2019-09-06 02:49] VITALS: BP 162/91
[2019-09-06] MEDS: CARVEDILOL 3.125 MG TABLET PO SCH ×2 (05:34→17:11)
[2019-09-06] MEDS: methylPREDNISolone SOD SUCC 125 MG/2 ML IVPush SCH ×3 (05:42→21:43)
[2019-09-06] MEDS: DOXYCYCLINE 100MG CAP PO SCH ×2 (07:37→21:43)
[2019-09-06] MEDS: ENOXAPARIN 30 MG/0.3 ML SQ SCH ×2 (07:37→21:30)
[2019-09-06] MEDS: ALBUTEROL SULFATE 2.5 MG/3 ML NPPB SCH ×4 (08:29→20:50)
[2019-09-06 08:45] VITALS: BP 167/102
[2019-09-06] MEDS: LISINOPRIL 20 MG TABLET PO SCH (09:08)
[2019-09-06 09:29] LABS: ANION GAP 8 mmol/L (5-15); CALCIUM 8.4 mg/dL (8.5-10.1); CHLORIDE 95 mmol/L (98-107); CREATININE 0.76 mg/dL (0.7-1.3)
[2019-09-06 13:22] VITALS: BP 166/102
[2019-09-06 20:07] VITALS: BP 165/100
[2019-09-07 02:30] VITALS: BP 158/100
[2019-09-07] MEDS: CARVEDILOL 3.125 MG TABLET PO SCH (05:41)
[2019-09-07] MEDS: methylPREDNISolone SOD SUCC 125 MG/2 ML IVPush SCH (05:41)
[2019-09-07 07:10] VITALS: BP 159/110
[2019-09-07 07:25] VITALS: BP 163/103
[2019-09-07] MEDS: LISINOPRIL 20 MG TABLET PO SCH (07:26)
[2019-09-07] MEDS: DOXYCYCLINE 100MG CAP PO SCH (07:26)
[2019-09-07] MEDS: ENOXAPARIN 30 MG/0.3 ML SQ SCH (07:27)
[2019-09-07] MEDS: ALBUTEROL SULFATE 2.5 MG/3 ML NPPB SCH ×2 (07:34→11:35)
[2019-09-07 08:29] VITALS: BP 169/90
[2019-09-07] MEDS ORDERED: PRED20TA PO (13:01)
[2019-09-07] MEDS ORDERED: LISI-170 PO (13:01)
[2019-09-07] MEDS ORDERED: CARV3.1212 PO (13:01)
[2019-09-07] MEDS ORDERED: DOXY100C2 PO (13:01)
== END 2019-09-07 15:33 | disposition home or self-care (01) ==
LOC: ED 05:50 → EDIP 07:02 → INTOOBSV 07:02 → 3N 08:16
PROVIDERS: ADMIT Family Medicine; ATTEND Internal Medicine
DX: J96.01 Acute respiratory failure with hypoxia (principal); J44.1 Chronic obstructive pulmonary disease with (acute) exacerbation; M25.561 Pain in right knee; M25.562 Pain in left knee; F10.20 Alcohol dependence, uncomplicated; I10 Essential (primary) hypertension; Z91.013 Allergy to seafood; Z87.891 Personal history of nicotine dependence; Z79.899 Other long term (current) drug therapy
CPT/HCPCS: 36415; 71045; 73565; 80048; 80053; 80307; 83735; 83880; 84100; 84443; 84484; 85025; 93005; 94640; 96365; 96366; 96372; 96375; 96376; 99284; G0378; J0360; J1650; J2060; J2405; J2930; J3475; J3480; J7120; J7512; J7613; 96374

== ENCOUNTER 2019-09-09 03:06 | Emergency (ER) | payer MEDICAID ==
[~2019-09-09] VITALS: Ht 177.8 cm; Wt 85.0 kg
[~2019-09-09 03:06] MED LIST changes: +BLOOD PRESSURE MED; +CARV3.1212 PO
[2019-09-09] MEDS ORDERED: KETOROLAC 30 MG/1 ML IM ONE (03:30)
[2019-09-09] MEDS ORDERED: KETOROLAC 60 MG/2 ML ONE (03:35)
[2019-09-09 03:50] LABS: ALBUMIN 2.8 g/dL (3.4-5.0); ANION GAP 11 mmol/L (5-15); CALCIUM 8.8 mg/dL (8.5-10.1); CHLORIDE 96 mmol/L (98-107); CREATININE 1.47 mg/dL (0.7-1.3)
[2019-09-09 03:55] LABS: MEAN CORPUSCULAR HEMOGLOBIN 33.5 pg (27.5-34.5); MEAN CORPUSCULAR HGB CONC 33.1 g/dL (33.2-36.2); MEAN CORPUSCULAR VOLUME 101.5 fL (81-97); MEAN PLATELET VOLUME 8.3 fL (7.4-10.4); PLATELET COUNT 154 x10^3/uL (130-400)
[2019-09-09 04:12] LABS: BASOPHILS # (AUTO) 0.13 x10^3/uL (0-0.1); BASOPHILS % (AUTO) 1 % (0-1); EOSINOPHILS # (AUTO) 0.07 x10^3/uL (0-0.4); EOSINOPHILS % (AUTO) 0 % (1-7); LYMPHOCYTES % (AUTO) 11 % (22-44); MD SCAN; MONOCYTES # (AUTO) 1.56 x10^3/uL (0.2-0.8); MONOCYTES % (AUTO) 9 % (2-9); NEUTROPHILS # (AUTO) 13.92 x10^3/uL (1.8-6.8); NEUTROPHILS % (AUTO) 79 % (42-75)
[2019-09-09] MEDS ORDERED: POTASSIUM CHLORIDE 20 MEQ TAB.ER.PRT PO ONE (04:30)
[2019-09-09] MEDS ORDERED: SODIUM CHLORIDE 0.9% 1,000ML IVBOLUS ONE (04:30)
[2019-09-09] MEDS ORDERED: POTASSIUM CHLORIDE 20 MEQ TAB.ER.PRT ONE (04:39)
--- NOTE | 2019-09-09 04:41 | NUR ---
DENIES ANY RELIEF FROM PAIN MEDS. AWARE OF PLAN FOR NSB. CALL LIGHT INREACH.
--- NOTE | 2019-09-09 04:52 | NUR ---
REPORT RECEIVED, CARE ASSUMED.
--- NOTE | 2019-09-09 05:12 | NUR ---
PT WITH ONGOING C/O PAIN TO "HANDS. WOKE ME UP ABOUT 0230. IT HURTS" ST PER MONITOR. AUTO BP AND PULSE OX IN PLACE. IV FLUIDS INFUSING WITHOUT REDNESS/SWELLING. CONT TO MONITOR.
[2019-09-09] MEDS ORDERED: HYDROcodone/APAP 5/325 TABLET ONE (05:27)
[2019-09-09] MEDS ORDERED: HYDROcodone/APAP 5/325 TABLET PO ONE (05:30)
[2019-09-09 06:35] VITALS: BP 103/73
--- NOTE | 2019-09-09 06:35 | NUR ---
NO SIG CHANGE IN PT CONDITION NOTED. IV DC'D WITH CANNULA INTACT. REVIEWED DC INSTRUCTIONS WITH PT, UNDERSTANDING VERBALIZED. PT TO LEAVE AMB.
== END 2019-09-09 06:37 | disposition home or self-care (01) ==
LOC: ED 05:34
DX: N28.9 Disorder of kidney and ureter, unspecified (principal); E87.6 Hypokalemia; I10 Essential (primary) hypertension; J43.9 Emphysema, unspecified; Z90.89 Acquired absence of other organs
CPT/HCPCS: 36415; 80048; 82040; 85025; 96360; 96372; 99283; J1885; J7030

== ENCOUNTER 2019-09-19 15:17 | Inpatient (IN) | payer MEDICAID ==
[~2019-09-19] VITALS: Ht 190.5 cm; Wt 80.5 kg
--- NOTE | 2019-09-19 15:43 | NUR ---
PT CAME IN TO "GET A TUNE UP" FOR HIS COPD. PT IS OUT OF HIS MEDS AND WANTS BREATHING TREATMENT. PT IS SPEAKING IN FULL SENTANCES. CONNECTED TO 2L OXYGEN, DOES NOT WEAR OXYGEN AT HOME. CONNECTED TO MONITORING. CALL LIGHT IN REACH. AWAITING ORDERS AT THIS TIME.
[2019-09-19] MEDS ORDERED: ALBUTEROL/IPRATROPIUM 2.5MG/0.5MG, 3 ML NPPB ONE (16:00)
[2019-09-19] MEDS ORDERED: ALBUTEROL SULFATE 2.5 MG/3 ML NPPB ONE ×2 (16:00→17:30)
[2019-09-19] MEDS ORDERED: ALBUTEROL/IPRATROPIUM 2.5MG/0.5MG, 3 ML ONE (16:10)
[2019-09-19] MEDS ORDERED: BUDESONIDE 0.5 MG/2 ML INHA ONE (16:15)
--- NOTE | 2019-09-19 16:19 | NUR ---
RT AT BEDSIDE.
[2019-09-19 16:46] LABS: BASOPHILS # (AUTO) 0.08 x10^3/uL (0-0.1); BASOPHILS % (AUTO) 1 % (0-1); EOSINOPHILS # (AUTO) 0.19 x10^3/uL (0-0.4); EOSINOPHILS % (AUTO) 3 % (1-7); LYMPHOCYTES # (AUTO) 2.06 x10^3/uL (1-3.4); LYMPHOCYTES % (AUTO) 34 % (22-44); MD NO; MEAN CORPUSCULAR HEMOGLOBIN 33.4 pg (27.5-34.5); MEAN CORPUSCULAR HGB CONC 33.6 g/dL (33.2-36.2); MEAN CORPUSCULAR VOLUME 99.5 fL (81-97); MEAN PLATELET VOLUME 6.9 fL (7.4-10.4); MONOCYTES # (AUTO) 0.81 x10^3/uL (0.2-0.8); MONOCYTES % (AUTO) 14 % (2-9); NEUTROPHILS # (AUTO) 2.86 x10^3/uL (1.8-6.8); NEUTROPHILS % (AUTO) 48 % (42-75); PLATELET COUNT 192 x10^3/uL (130-400); RED BLOOD COUNT 4.09 x10^6/uL (4.38-5.82); RED CELL DISTRIBUTION WIDTH 15.6 % (9.4-14.8)
[2019-09-19 16:56] LABS: ANION GAP 4 mmol/L (5-15); CALCIUM 8.1 mg/dL (8.5-10.1); CHLORIDE 98 mmol/L (98-107); CREATININE 0.58 mg/dL (0.7-1.3)
--- NOTE | 2019-09-19 17:04 | NUR ---
LUNCH BREAK NOTE: CHART UP FOR MD RECHECK. PT AWARE.
--- NOTE | 2019-09-19 17:09 | NUR ---
PT SLEEPING ON MARY. NADN. CHA AT BEDSIDE TO UPDATE PT ON POC.
[2019-09-19] MEDS ORDERED: methylPREDNISolone SOD SUCC 125 MG/2 ML ONE (17:44)
--- NOTE | 2019-09-19 17:49 | NUR ---
REPORT GIVEN TO KEVIN LUNA. MEDS ADMIN PER DEC.
[2019-09-19] MEDS ORDERED: methylPREDNISolone SOD SUCC 125 MG/2 ML IVPush ONE (18:00)
[2019-09-19] MEDS ORDERED: ONDANSETRON 2MG/ML, 2ML IVPush PRN (20:00)
[2019-09-19] MEDS: ALBUTEROL SULFATE 2.5 MG/3 ML NPPB SCH (20:00)
[2019-09-19] MEDS ORDERED: LIDODERM 5% PATCH TD PRN (20:00)
[2019-09-19] MEDS ORDERED: TEMAZEPAM 15 MG CAPSULE PO PRN (20:00)
[2019-09-19] MEDS ORDERED: DOCUSATE 100 MG CAPSULE PO PRN (20:00)
[2019-09-19] MEDS ORDERED: ACETAMINOPHEN 325 MG TABLET PO PRN (20:00)
[2019-09-19] MEDS ORDERED: ENALAPRILAT 1.25 MG/ML, 2ML IVPush PRN (20:00)
[2019-09-19 20:08] VITALS: BP 92/60
[2019-09-19] MEDS ORDERED: BUDESONIDE 0.5 MG/2 ML INHA INH SCH ×2 (21:00)
[2019-09-19] MEDS: ENOXAPARIN 40 MG/0.4 ML SQ SCH (21:12)
[2019-09-19] MEDS: methylPREDNISolone SOD SUCC 40 MG/ML IVPush SCH (22:04)
[2019-09-20 03:53] VITALS: BP 113/72
[2019-09-20] MEDS: methylPREDNISolone SOD SUCC 40 MG/ML IVPush SCH ×4 (05:16→23:02)
[2019-09-20 06:14] LABS: MEAN CORPUSCULAR HEMOGLOBIN 33.2 pg (27.5-34.5); MEAN CORPUSCULAR HGB CONC 32.7 g/dL (33.2-36.2); MEAN CORPUSCULAR VOLUME 101.5 fL (81-97); PLATELET COUNT 183 x10^3/uL (130-400); RED BLOOD COUNT 4.14 x10^6/uL (4.38-5.82); RED CELL DISTRIBUTION WIDTH 15.8 % (9.4-14.8)
[2019-09-20 06:26] LABS: ANION GAP 6 mmol/L (5-15); CALCIUM 8.6 mg/dL (8.5-10.1); CHLORIDE 101 mmol/L (98-107); CREATININE 0.58 mg/dL (0.7-1.3)
[2019-09-20 06:35] LABS: BASOPHILS # (AUTO) 0.01 x10^3/uL (0-0.1); BASOPHILS % (AUTO) 0 % (0-1); EOSINOPHILS # (AUTO) 0.01 x10^3/uL (0-0.4); EOSINOPHILS % (AUTO) 0 % (1-7); LYMPHOCYTES # (AUTO) 0.59 x10^3/uL (1-3.4); LYMPHOCYTES % (AUTO) 23 % (22-44); MD SCAN; MONOCYTES # (AUTO) 0.02 x10^3/uL (0.2-0.8); MONOCYTES % (AUTO) 1 % (2-9); NEUTROPHILS # (AUTO) 2.01 x10^3/uL (1.8-6.8); NEUTROPHILS % (AUTO) 76 % (42-75)
[2019-09-20] MEDS: ALBUTEROL SULFATE 2.5 MG/3 ML NPPB SCH ×4 (07:10→20:00)
[2019-09-20 08:35] VITALS: BP 146/90
[2019-09-20 14:07] VITALS: BP 139/92
[2019-09-20] MEDS ORDERED: SODIUM CHLORIDE 0.9% 1,000 ML IV SCH (16:00)
[2019-09-20 19:52] VITALS: BP 170/106
[2019-09-20] MEDS: ENOXAPARIN 40 MG/0.4 ML SQ SCH (19:52)
[2019-09-20 21:56] VITALS: BP_SYST 159; BP_SYST 169; BP_DIAS 100; BP_DIAS 104
[2019-09-20 23:04] VITALS: BP 136/82
[2019-09-21 01:32] VITALS: BP 160/99
[2019-09-21] MEDS: methylPREDNISolone SOD SUCC 40 MG/ML IVPush SCH ×2 (05:11→11:00)
[2019-09-21] MEDS: ALBUTEROL SULFATE 2.5 MG/3 ML NPPB SCH ×2 (05:23→09:43)
[2019-09-21 05:45] LABS: ANION GAP 4 mmol/L (5-15); CALCIUM 8.2 mg/dL (8.5-10.1); CHLORIDE 100 mmol/L (98-107)
[2019-09-21 05:46] LABS: CREATININE 0.69 mg/dL (0.7-1.3)
[2019-09-21 05:49] LABS: BASOPHILS # (AUTO) 0.01 x10^3/uL (0-0.1); BASOPHILS % (AUTO) 0 % (0-1); EOSINOPHILS % (AUTO) 0 % (1-7); LYMPHOCYTES # (AUTO) 0.71 x10^3/uL (1-3.4); LYMPHOCYTES % (AUTO) 10 % (22-44); MD NO; MEAN CORPUSCULAR HGB CONC 32.9 g/dL (33.2-36.2); MEAN CORPUSCULAR VOLUME 100.2 fL (81-97); MEAN PLATELET VOLUME 7.8 fL (7.4-10.4); MONOCYTES # (AUTO) 0.25 x10^3/uL (0.2-0.8); MONOCYTES % (AUTO) 4 % (2-9); NEUTROPHILS # (AUTO) 6.12 x10^3/uL (1.8-6.8); NEUTROPHILS % (AUTO) 86 % (42-75); PLATELET COUNT 159 x10^3/uL (130-400); RED BLOOD COUNT 3.88 x10^6/uL (4.38-5.82); RED CELL DISTRIBUTION WIDTH 15.6 % (9.4-14.8)
[2019-09-21 06:34] VITALS: BP 159/91
[2019-09-21] MEDS ORDERED: METH4TAB2 PO (09:59)
[2019-09-21] MEDS ORDERED: FLUT1AER INH (09:59)
[2019-09-21] MEDS ORDERED: AZIT500T10 PO (09:59)
== END 2019-09-21 12:00 | disposition home or self-care (01) | DRG 189 ==
LOC: EDBD 15:17 → MERGE 15:17 → ED 17:25 → EDIP 17:49 → 3N 18:32 → DCLOUNGE 09-21 11:52
PROVIDERS: ADMIT Internal Medicine; ATTEND Internal Medicine
DX: J96.01 Acute respiratory failure with hypoxia (principal); E87.1 Hypo-osmolality and hyponatremia; J44.1 Chronic obstructive pulmonary disease with (acute) exacerbation; E16.2 Hypoglycemia, unspecified; F10.20 Alcohol dependence, uncomplicated; I10 Essential (primary) hypertension; Z82.49 Family history of ischemic heart disease and other diseases of the circulatory system; Z87.891 Personal history of nicotine dependence; Z91.013 Allergy to seafood; Z91.048 Other nonmedicinal substance allergy status
CPT/HCPCS: 36415; 99291; J7613; J7620; J7626; 71045; 80048; 85025; 94640; G0378; J1650; J2920; J2930; J7030

== ENCOUNTER 2019-10-04 12:03 | Inpatient (IN) | payer MEDICAID ==
[~2019-10-04] VITALS: Ht 190.5 cm; Wt 76.9 kg
[~2019-10-04 12:03] MED LIST changes: +ALBUTEROL SULFATE 2.5 MG/3 ML NPPB ONE; +ALBUTEROL/IPRATROPIUM 2.5MG/0.5MG, 3 ML NEB ONE; +AZIT500T10 PO; +FLUT1AER INH
--- NOTE | 2019-10-04 12:09 | NUR ---
EKG IN TRIAGE COMPLETED.
[2019-10-04] MEDS ORDERED: ALBUTEROL/IPRATROPIUM 2.5MG/0.5MG, 3 ML ONE (12:22)
[2019-10-04] MEDS ORDERED: ALBUTEROL SULFATE 2.5 MG/3 ML ONE (12:23)
[2019-10-04] MEDS ORDERED: methylPREDNISolone SOD SUCC 125 MG/2 ML ONE (12:28)
[2019-10-04 12:46] LABS: MEAN CORPUSCULAR HEMOGLOBIN 32.5 pg (27.5-34.5); MEAN CORPUSCULAR HGB CONC 32.6 g/dL (33.2-36.2); MEAN CORPUSCULAR VOLUME 99.8 fL (81-97); MEAN PLATELET VOLUME 7.6 fL (7.4-10.4); PLATELET COUNT 201 x10^3/uL (130-400); RED BLOOD COUNT 4.29 x10^6/uL (4.38-5.82); RED CELL DISTRIBUTION WIDTH 15.9 % (9.4-14.8)
[2019-10-04 12:56] LABS: O2 FLOW 3.5 L/min
[2019-10-04 12:57] LABS: ALANINE AMINOTRANSFERASE 43 U/L (12-78); ALBUMIN 3.5 g/dL (3.4-5.0); ANION GAP 10 mmol/L (5-15); CHLORIDE 101 mmol/L (98-107)
[2019-10-04 13:01] LABS: ALKALINE PHOSPHATASE 104 U/L (45-117); BILIRUBIN,TOTAL 0.4 mg/dL (0.2-1.0); CREATININE 0.55 mg/dL (0.7-1.3); TOTAL PROTEIN 7.2 g/dL (6.4-8.2); TROPONIN I < 0.015 ng/mL (0.000-0.045)
--- NOTE | 2019-10-04 13:14 | NUR ---
THIS IS A 54 YO MALE WHO PRESENTS TO THE ER TRIPODING AND SPEAKING IN SHORT PHRASES. PT PLACED ON 3.5LNC AND GIVEN BREATHING TREATMENT. PT NOW ABLE TO SPEAK IN FULL SENTENCES W/O DIFFICULTY. PT WAS NST 120'S AND NOW NST 110'S. PTR RESTNG ON GURNEY. NAD NOTED. SKIN PWD. PT ON CONT BP, CARDIAC AND O2 MONITORS. PT AWARE WE ARE WAITING FOR LAB/IMAGING RESULTS. CALL LIGHT WITHIN REACH. WILL CONT TO MONITOR PT.
[2019-10-04 13:17] LABS: MD YES
[2019-10-04 13:19] LABS: ANISOCYTOSIS 1+; BAND#(MANUAL) 0.56 x10^3/uL; BANDS%(MANUAL) 6 % (0-7); BASOS#(MANUAL) 0.09 x10^3/uL (0-0.1); BASOS% (MANUAL) 1 % (0-1); LYMPH#(MANUAL) 1.88 x10^3/uL (1-3.4); LYMPHS% (MANUAL) 20 % (22-44); MONOS#(MANUAL) 1.32 x10^3/uL (0.3-2.7); MONOS% (MANUAL) 14 % (2-9); SEG#(MANUAL) 5.55 x10^3/uL (1.8-6.8); SEGS% (MANUAL) 59 % (42-75)
[2019-10-04 13:20] LABS: <PLATELET ESTIMATE> ADEQUATE; <PLT MORPHOLOGY> NORMAL PLT MORPH
[2019-10-04] MEDS ORDERED: hydrALAzine 20 MG/ML, 1ML IVPush PRN (14:00)
[2019-10-04] MEDS ORDERED: SODIUM CHLORIDE FLUSH 10ML SYR IVF ONE (14:00)
[2019-10-04] MEDS ORDERED: ONDANSETRON 2MG/ML, 2ML IVPush PRN (14:00)
[2019-10-04] MEDS ORDERED: KETOROLAC 30 MG/1 ML IV PRN (14:00)
[2019-10-04] MEDS ORDERED: GUAIFENESIN/DM 200-20MG, 10ML UDC PO PRN (14:00)
[2019-10-04] MEDS ORDERED: BUTALB/APAP/CAFFEINE 50MG/325MG/40MG PO PRN ×2 (14:00)
[2019-10-04] MEDS ORDERED: POLYETHYLENE GLYCOL 17 GM PACKET PO PRN (14:00)
[2019-10-04] MEDS ORDERED: ONDANSETRON ODT 4 MG PO PRN (14:00)
[2019-10-04] MEDS ORDERED: LACTATED RINGERS 1,000 ML IV ONE (14:00)
[2019-10-04] MEDS ORDERED: methylPREDNISolone SOD SUCC 125 MG/2 ML IV ONE (14:00)
[2019-10-04] MEDS: methylPREDNISolone SOD SUCC 125 MG/2 ML IVPush SCH ×2 (14:00→20:00)
[2019-10-04] MEDS ORDERED: TEMAZEPAM 15 MG CAPSULE PO PRN (14:00)
[2019-10-04] MEDS ORDERED: ACETAMINOPHEN 325 MG TABLET PO PRN (14:00)
--- NOTE | 2019-10-04 14:03 | NUR ---
PT CURRENTLY RESTING ON GURNEY. NAD NOTED. SKIN PWD. RESP EVEN AND UNLABORED. PT APPEARS TO BE BREATHING MORE COMFORTABLY AT THIS TIME. PT IS NO LONGER USING ACCESSORY MUSCLES TO BREATHE, PT STATES "I FEEL A LOT BETTER" AFTER BREATHING TRX. PT AWARE HE IS WAITING TO BE ADMITTED. PT DENIES ANY NEEDS AT THIS TIME. CALL LIGHT WITHIN REACH. WILL CONT TO MONITOR PT.
--- NOTE | 2019-10-04 15:42 | NUR ---
TASK RN: FOOD TRAY DELIVERED TO PT. DENIES FURTHER NEEDS AT THIS TIME.
--- NOTE | 2019-10-04 15:57 | NUR ---
REPORT TO JEREMY LYNN ON MED/SURG.
[2019-10-04 17:39] VITALS: BP 156/86
[2019-10-04] MEDS: CARVEDILOL 3.125 MG TABLET PO SCH (18:00)
[2019-10-04] MEDS: DOXYCYCLINE 100MG TABLET PO SCH (20:00)
[2019-10-04] MEDS: THIAMINE 100MG TABLET PO SCH (20:00)
[2019-10-04 20:03] VITALS: BP 154/84
[2019-10-04] MEDS: BUDESONIDE 0.5 MG/2 ML INHA NPPB SCH (20:41)
[2019-10-04] MEDS: ALBUTEROL/IPRATROPIUM 2.5MG/0.5MG, 3 ML NPPB SCH (20:41)
[2019-10-05 01:09] VITALS: BP 150/80
[2019-10-05] MEDS: ALBUTEROL/IPRATROPIUM 2.5MG/0.5MG, 3 ML NPPB SCH ×4 (02:29→21:00)
[2019-10-05] MEDS: methylPREDNISolone SOD SUCC 125 MG/2 ML IVPush SCH ×3 (02:43→20:27)
[2019-10-05 05:23] LABS: MEAN CORPUSCULAR HEMOGLOBIN 32.9 pg (27.5-34.5); MEAN CORPUSCULAR HGB CONC 33.1 g/dL (33.2-36.2); MEAN CORPUSCULAR VOLUME 99.4 fL (81-97); MEAN PLATELET VOLUME 8.3 fL (7.4-10.4); PLATELET COUNT 188 x10^3/uL (130-400); RED BLOOD COUNT 4.09 x10^6/uL (4.38-5.82); RED CELL DISTRIBUTION WIDTH 15.7 % (9.4-14.8)
[2019-10-05 05:25] LABS: ANION GAP 9 mmol/L (5-15); CHLORIDE 101 mmol/L (98-107); CREATININE 0.49 mg/dL (0.7-1.3)
[2019-10-05] MEDS: CARVEDILOL 3.125 MG TABLET PO SCH ×2 (05:44→17:45)
[2019-10-05 05:57] LABS: BASOPHILS # (AUTO) 0.01 x10^3/uL (0-0.1); BASOPHILS % (AUTO) 0 % (0-1); EOSINOPHILS % (AUTO) 0 % (1-7); LYMPHOCYTES # (AUTO) 0.52 x10^3/uL (1-3.4); LYMPHOCYTES % (AUTO) 16 % (22-44); MD SCAN; MONOCYTES # (AUTO) 0.06 x10^3/uL (0.2-0.8); MONOCYTES % (AUTO) 2 % (2-9); NEUTROPHILS # (AUTO) 2.68 x10^3/uL (1.8-6.8); NEUTROPHILS % (AUTO) 82 % (42-75)
[2019-10-05] MEDS: BUDESONIDE 0.5 MG/2 ML INHA NPPB SCH ×2 (06:57→21:00)
[2019-10-05 08:06] VITALS: BP 150/100
[2019-10-05] MEDS ORDERED: LISINOPRIL 20 MG TABLET PO SCH (09:00)
[2019-10-05] MEDS: DOXYCYCLINE 100MG TABLET PO SCH ×2 (09:07→20:27)
[2019-10-05] MEDS: THIAMINE 100MG TABLET PO SCH ×2 (09:07→20:27)
[2019-10-05 13:03] VITALS: BP 139/89
[2019-10-05] MEDS: LISINOPRIL 10 MG TABLET PO SCH (14:43)
[2019-10-05] MEDS: GUAIFENESIN ER 600 MG TABLET PO SCH ×2 (14:44→20:27)
[2019-10-05 19:58] VITALS: BP 129/82
[2019-10-06 01:59] VITALS: BP 134/87
[2019-10-06] MEDS: methylPREDNISolone SOD SUCC 125 MG/2 ML IVPush SCH ×3 (02:01→17:18)
[2019-10-06] MEDS: ALBUTEROL/IPRATROPIUM 2.5MG/0.5MG, 3 ML NPPB SCH ×5 (02:14→14:17)
[2019-10-06] MEDS: CARVEDILOL 3.125 MG TABLET PO SCH ×2 (05:23→17:19)
[2019-10-06 08:00] VITALS: BP 140/99
[2019-10-06] MEDS: BUDESONIDE 0.5 MG/2 ML INHA NPPB SCH ×2 (09:00→09:55)
[2019-10-06] MEDS: THIAMINE 100MG TABLET PO SCH ×2 (09:06→20:11)
[2019-10-06] MEDS: GUAIFENESIN ER 600 MG TABLET PO SCH ×2 (09:06→20:11)
[2019-10-06] MEDS: LISINOPRIL 10 MG TABLET PO SCH (09:07)
[2019-10-06] MEDS: DOXYCYCLINE 100MG TABLET PO SCH ×2 (09:07→20:10)
[2019-10-06] MEDS ORDERED: methylPREDNISolone SOD SUCC 125 MG/2 ML IVPush SCH (10:00)
[2019-10-06 13:00] VITALS: BP 137/84
[2019-10-06 19:05] VITALS: BP 148/59
[2019-10-07] MEDS: methylPREDNISolone SOD SUCC 125 MG/2 ML IVPush SCH ×2 (01:14→08:47)
[2019-10-07 01:21] VITALS: BP 165/98
[2019-10-07] MEDS: ALBUTEROL/IPRATROPIUM 2.5MG/0.5MG, 3 ML NPPB SCH ×2 (03:00→07:02)
[2019-10-07] MEDS: CARVEDILOL 3.125 MG TABLET PO SCH (05:24)
[2019-10-07] MEDS: BUDESONIDE 0.5 MG/2 ML INHA NPPB SCH (07:03)
[2019-10-07 07:42] VITALS: BP 149/93
[2019-10-07] MEDS: GUAIFENESIN ER 600 MG TABLET PO SCH (08:46)
[2019-10-07] MEDS: DOXYCYCLINE 100MG TABLET PO SCH (08:46)
[2019-10-07] MEDS: LISINOPRIL 10 MG TABLET PO SCH (08:47)
[2019-10-07] MEDS: THIAMINE 100MG TABLET PO SCH (08:47)
[2019-10-07] MEDS ORDERED: DOXY100T PO (09:15)
[2019-10-07] MEDS ORDERED: PRED20TA PO (09:15)
[2019-10-07] MEDS ORDERED: FLUT1AER INH (09:15)
[2019-10-07] MEDS ORDERED: GUAI600T31 PO (09:15)
[2019-10-07] MEDS ORDERED: ALBU8.5H8 INH (09:15)
[2019-10-07] MEDS ORDERED: ALBU0.63 NEB (09:15)
[2019-10-07] MEDS ORDERED: FLU VACC QS2019-20 36MOS UP/PF 0.5 ML IM-VACC ONE (12:00)
== END 2019-10-07 12:30 | disposition home or self-care (01) | DRG 191 ==
LOC: ED 13:21 → EDIP 13:26 → ED 13:33 → 3N 14:57 → DCLOUNGE 10-07 12:20
PROVIDERS: ADMIT Family Medicine; ATTEND Family Medicine
DX: J44.1 Chronic obstructive pulmonary disease with (acute) exacerbation (principal); E87.1 Hypo-osmolality and hyponatremia; F10.20 Alcohol dependence, uncomplicated; Y90.9 Presence of alcohol in blood, level not specified; F17.200 Nicotine dependence, unspecified, uncomplicated; I10 Essential (primary) hypertension; Z91.19 Patient's noncompliance with other medical treatment and regimen; Z87.01 Personal history of pneumonia (recurrent); R09.02 Hypoxemia; Z91.013 Allergy to seafood; Z91.018 Allergy to other foods
CPT/HCPCS: 36415; 36600; 99291; J7613; J7620; J7626; 71045; 80048; 80053; 82803; 83605; 83735; 84100; 84484; 85025; 87040; 90686; 93005; 94640; G0378; J2930; J7120

== ENCOUNTER 2019-10-25 10:42 | Emergency (ER) | payer MEDICAID ==
[~2019-10-25] VITALS: Ht 190.5 cm; Wt 79.0 kg
[~2019-10-25 10:42] MED LIST changes: +ALBU0.63 NEB; -ALBUTEROL SULFATE 2.5 MG/3 ML NPPB ONE; -ALBUTEROL/IPRATROPIUM 2.5MG/0.5MG, 3 ML NEB ONE
[2019-10-25] MEDS ORDERED: methylPREDNISolone SOD SUCC 125 MG/2 ML IV ONE (11:00)
[2019-10-25] MEDS ORDERED: ALBUTEROL/IPRATROPIUM 2.5MG/0.5MG, 3 ML NPPB SCH (11:00)
[2019-10-25] MEDS ORDERED: ALBUTEROL/IPRATROPIUM 2.5MG/0.5MG, 3 ML ONE ×2 (11:31)
[2019-10-25] MEDS ORDERED: methylPREDNISolone SOD SUCC 125 MG/2 ML ONE (11:37)
[2019-10-25 11:39] LABS: BASOPHILS # (AUTO) 0.08 x10^3/uL (0-0.1); BASOPHILS % (AUTO) 1 % (0-1); EOSINOPHILS # (AUTO) 0.03 x10^3/uL (0-0.4); EOSINOPHILS % (AUTO) 0 % (1-7); LYMPHOCYTES # (AUTO) 1.37 x10^3/uL (1-3.4); LYMPHOCYTES % (AUTO) 11 % (22-44); MD NO; MEAN CORPUSCULAR HEMOGLOBIN 34.2 pg (27.5-34.5); MEAN CORPUSCULAR HGB CONC 33.1 g/dL (33.2-36.2); MEAN CORPUSCULAR VOLUME 103.1 fL (81-97); MONOCYTES # (AUTO) 1.19 x10^3/uL (0.2-0.8); MONOCYTES % (AUTO) 10 % (2-9); NEUTROPHILS # (AUTO) 9.63 x10^3/uL (1.8-6.8); NEUTROPHILS % (AUTO) 78 % (42-75); PLATELET COUNT 137 x10^3/uL (130-400); RED BLOOD COUNT 4.03 x10^6/uL (4.38-5.82); RED CELL DISTRIBUTION WIDTH 17.4 % (9.4-14.8)
--- NOTE | 2019-10-25 11:43 | NUR ---
PT ON ALL ROOM MONITORING. IV PLACED, LABS DRAWN WITH START. MED GIVEN PER ERP ORDER. RT COMPLETE NEB TX. VSS/UPDATED IN COMPUTER. WARM BLANKET PROVIDED, CALL LIGHT WITHIN REACH.
[2019-10-25 11:51] LABS: ALBUMIN 3.4 g/dL (3.4-5.0); ANION GAP 9 mmol/L (5-15); CHLORIDE 100 mmol/L (98-107); CREATININE 0.64 mg/dL (0.7-1.3)
[2019-10-25 11:55] LABS: TROPONIN I < 0.015 ng/mL (0.000-0.045)
--- NOTE | 2019-10-25 12:07 | NUR ---
ALL RESULTS BACK, PT FOR RECHECK.
--- NOTE | 2019-10-25 12:19 | NUR ---
O2 PLACED AT 2LITERS VIA NC FOR SAT DIPPING TO 87% WHILE SLEEPING.
[2019-10-25 13:58] VITALS: BP 121/62
--- NOTE | 2019-10-25 13:58 | NUR ---
PT UP AND AMBULATORY TO BR WITH STEADY GAIT, NAD.
== END 2019-10-25 14:01 | disposition home or self-care (01) ==
LOC: ED 11:21
DX: J44.1 Chronic obstructive pulmonary disease with (acute) exacerbation (principal); F17.210 Nicotine dependence, cigarettes, uncomplicated; I10 Essential (primary) hypertension; Z90.89 Acquired absence of other organs
CPT/HCPCS: 36415; 71045; 80048; 80307; 82040; 84484; 85025; 94640; 96374; 99284; 99406; J2930

== ENCOUNTER 2019-11-13 12:54 | Inpatient (IN) | payer MEDICAID ==
[~2019-11-13] VITALS: Ht 188 cm; Wt 81.6 kg
[2019-11-13] MEDS ORDERED: ALBUTEROL/IPRATROPIUM 2.5MG/0.5MG, 3 ML ONE (13:12)
--- NOTE | 2019-11-13 13:20 | NUR ---
RT AT BEDSIDE
[2019-11-13] MEDS ORDERED: methylPREDNISolone SOD SUCC 125 MG/2 ML IV ONE (13:30)
[2019-11-13] MEDS ORDERED: ALBUTEROL/IPRATROPIUM 2.5MG/0.5MG, 3 ML NPPB SCH (13:30)
[2019-11-13] MEDS ORDERED: SODIUM CHLORIDE FLUSH 10ML SYR IVF ONE (13:30)
--- NOTE | 2019-11-13 13:30 | NUR ---
PT C/O SOB AND COPD EXACERBATION. PT HAS BACK PAIN THAT HE'S HAD BEFORE WHEN HE'S HAD PNA. PT FEELS BETTER AFTER NEB TX. CONNECTED TO MONITORING. CALL LIGHT IN REACH.
--- NOTE | 2019-11-13 13:59 | NUR ---
LABS DRAWN. 2 SETS BLOOD CX DRAWN. PIV ATTEMPTED WITHOUT SUCCESS. OK TO WAIT ON PIV. PT REFUSING SOLU-MEDROL, "IT MAKES MY BONES HURT".
[2019-11-13 14:06] LABS: ALBUMIN 3.1 g/dL (3.4-5.0); ANION GAP 9 mmol/L (5-15); CALCIUM 7.8 mg/dL (8.5-10.1); CHLORIDE 99 mmol/L (98-107); CREATININE 0.63 mg/dL (0.7-1.3)
[2019-11-13 14:10] LABS: TROPONIN I < 0.015 ng/mL (0.000-0.045)
[2019-11-13 14:11] LABS: BASOPHILS % (AUTO) 1 % (0-1); EOSINOPHILS # (AUTO) 0.05 x10^3/uL (0-0.4); EOSINOPHILS % (AUTO) 0 % (1-7); LYMPHOCYTES % (AUTO) 13 % (22-44); MD NO; MEAN CORPUSCULAR HEMOGLOBIN 33.1 pg (27.5-34.5); MEAN CORPUSCULAR HGB CONC 32.9 g/dL (33.2-36.2); MEAN CORPUSCULAR VOLUME 100.4 fL (81-97); MEAN PLATELET VOLUME 7.7 fL (7.4-10.4); MONOCYTES # (AUTO) 0.86 x10^3/uL (0.2-0.8); MONOCYTES % (AUTO) 7 % (2-9); NEUTROPHILS % (AUTO) 79 % (42-75); PLATELET COUNT 218 x10^3/uL (130-400); RED BLOOD COUNT 4.17 x10^6/uL (4.38-5.82); RED CELL DISTRIBUTION WIDTH 17.1 % (9.4-14.8)
--- NOTE | 2019-11-13 15:00 | NUR ---
ALL RESULTS ARE BACK AT THIS TIME. CHART UP FOR RECHECK.
--- NOTE | 2019-11-13 15:36 | NUR ---
PT RESTING COMFORTABLY ON GURNEY. SULEMA.
[2019-11-13] MEDS ORDERED: SODIUM CHLORIDE FLUSH 10ML SYR IVF PRN (17:00)
--- NOTE | 2019-11-13 17:39 | NUR ---
BREAK RN: PT DOZING; EASILY AWAKENED. DINNER TRAY DELIVERED
--- NOTE | 2019-11-13 17:39 | NUR ---
PT REQUESTING ANOTHER BREATHING TX. WILL NOTIFY ERP
[2019-11-13] MEDS ORDERED: ALBUTEROL/IPRATROPIUM 2.5MG/0.5MG, 3 ML NPPB ONE (18:00)
--- NOTE | 2019-11-13 19:06 | NUR ---
PT RESTING COMFORTABLY ON GURNEY. SULEMA.
--- NOTE | 2019-11-13 19:34 | NUR ---
REPORT GIVEN TO SATNAM LUNA.
[2019-11-13 20:42] VITALS: BP 115/74
[2019-11-13] MEDS ORDERED: CEFTRIAXONE PMX 2GM/50ML 50 ML IV SCH (23:30)
[2019-11-13] MEDS ORDERED: AZITHROMYCIN 500 MG in SODIUM CHLORIDE 0.9% 250 ML IV SCH (23:30)
[2019-11-13] MEDS ORDERED: SODIUM CHLORIDE 0.9% 1,000 ML IV SCH (23:37)
[2019-11-13] MEDS ORDERED: CARVEDILOL 3.125 MG TABLET ONE (23:45)
[2019-11-13] MEDS: methylPREDNISolone SOD SUCC 40 MG/ML IVPush SCH (23:53)
[2019-11-13] MEDS: THIAMINE 100MG TABLET PO SCH (23:53)
[2019-11-13] MEDS: CARVEDILOL 3.125 MG TABLET PO SCH (23:53)
[2019-11-13] MEDS: MAGNESIUM OXIDE 400 MG TABLET PO SCH (23:53)
[2019-11-14] MEDS ORDERED: ONDANSETRON 2MG/ML, 2ML IVPush PRN
[2019-11-14] MEDS ORDERED: TEMAZEPAM 15 MG CAPSULE PO PRN
[2019-11-14] MEDS ORDERED: ACETAMINOPHEN 325 MG TABLET PO PRN
[2019-11-14] MEDS ORDERED: hydrALAzine 20 MG/ML, 1ML IVPush PRN
[2019-11-14] MEDS: ENOXAPARIN 40 MG/0.4 ML SQ SCH (00:13)
[2019-11-14 03:10] VITALS: BP 124/81
[2019-11-14] MEDS: methylPREDNISolone SOD SUCC 40 MG/ML IVPush SCH ×4 (05:52→23:41)
[2019-11-14 05:58] LABS: CHLORIDE 107 mmol/L (98-107)
[2019-11-14 06:00] LABS: BASOPHILS # (AUTO) 0.01 x10^3/uL (0-0.1); BASOPHILS % (AUTO) 0 % (0-1); EOSINOPHILS % (AUTO) 0 % (1-7); LYMPHOCYTES # (AUTO) 0.39 x10^3/uL (1-3.4); LYMPHOCYTES % (AUTO) 6 % (22-44); MD NO; MEAN CORPUSCULAR HGB CONC 32.9 g/dL (33.2-36.2); MEAN CORPUSCULAR VOLUME 100.3 fL (81-97); MEAN PLATELET VOLUME 7.9 fL (7.4-10.4); MONOCYTES # (AUTO) 0.02 x10^3/uL (0.2-0.8); MONOCYTES % (AUTO) 0 % (2-9); NEUTROPHILS # (AUTO) 6.71 x10^3/uL (1.8-6.8); NEUTROPHILS % (AUTO) 94 % (42-75); PLATELET COUNT 148 x10^3/uL (130-400); RED BLOOD COUNT 3.64 x10^6/uL (4.38-5.82); RED CELL DISTRIBUTION WIDTH 16.9 % (9.4-14.8)
[2019-11-14 06:12] LABS: ALANINE AMINOTRANSFERASE 23 U/L (12-78); ALBUMIN 2.6 g/dL (3.4-5.0); ALKALINE PHOSPHATASE 97 U/L (45-117); ANION GAP 9 mmol/L (5-15); BILIRUBIN,TOTAL 0.4 mg/dL (0.2-1.0); CALCIUM 7.6 mg/dL (8.5-10.1); TOTAL PROTEIN 5.7 g/dL (6.4-8.2)
[2019-11-14 06:41] VITALS: BP 154/95
[2019-11-14] MEDS: ALBUTEROL/IPRATROPIUM 2.5MG/0.5MG, 3 ML NPPB SCH ×4 (08:00→20:00)
[2019-11-14] MEDS: BUDESONIDE 0.5 MG/2 ML INHA NPPB SCH ×2 (08:00→21:00)
[2019-11-14] MEDS: MAGNESIUM OXIDE 400 MG TABLET PO SCH ×2 (08:40→22:37)
[2019-11-14] MEDS: MULTIVITAMIN 1 TABLET PO SCH (08:41)
[2019-11-14] MEDS: THIAMINE 100MG TABLET PO SCH ×2 (08:41→22:37)
[2019-11-14] MEDS: LISINOPRIL 20 MG TABLET PO SCH (08:41)
[2019-11-14] MEDS: FOLIC ACID 1 MG TABLET PO SCH (08:41)
[2019-11-14] MEDS ORDERED: CHLORDIAZEPOXIDE 10 MG CAPSULE PO PRN (11:00)
[2019-11-14] MEDS ORDERED: MAGNESIUM SULFATE PMX 2GM/50ML 50 ML IV ONE (11:00)
[2019-11-14] MEDS ORDERED: CHLORDIAZEPOXIDE 25 MG CAPSULE PO PRN ×3 (11:00)
[2019-11-14] MEDS: GUAIFENESIN ER 600 MG TABLET PO SCH ×2 (11:38→22:36)
[2019-11-14] MEDS: CARVEDILOL 3.125 MG TABLET PO SCH (11:48)
[2019-11-14 12:54] VITALS: BP 152/95
[2019-11-14 19:34] VITALS: BP 134/84
[2019-11-15] MEDS: ENOXAPARIN 40 MG/0.4 ML SQ SCH
[2019-11-15 00:42] VITALS: BP 157/91
[2019-11-15 05:27] VITALS: BP 149/95
[2019-11-15] MEDS: CARVEDILOL 3.125 MG TABLET PO SCH (05:29)
[2019-11-15] MEDS: methylPREDNISolone SOD SUCC 40 MG/ML IVPush SCH ×2 (05:30→12:01)
[2019-11-15 07:02] VITALS: BP 159/91
[2019-11-15] MEDS: BUDESONIDE 0.5 MG/2 ML INHA NPPB SCH (07:25)
[2019-11-15] MEDS: ALBUTEROL/IPRATROPIUM 2.5MG/0.5MG, 3 ML NPPB SCH ×2 (07:25→11:10)
[2019-11-15] MEDS: MAGNESIUM OXIDE 400 MG TABLET PO SCH (08:00)
[2019-11-15] MEDS: GUAIFENESIN ER 600 MG TABLET PO SCH (08:00)
[2019-11-15] MEDS: THIAMINE 100MG TABLET PO SCH (08:00)
[2019-11-15] MEDS: LISINOPRIL 20 MG TABLET PO SCH (08:00)
[2019-11-15] MEDS: FOLIC ACID 1 MG TABLET PO SCH (08:01)
[2019-11-15] MEDS: MULTIVITAMIN 1 TABLET PO SCH (08:01)
[2019-11-15] MEDS ORDERED: FLUT1AER INH (11:00)
[2019-11-15] MEDS ORDERED: ALBU8.5H8 INH (11:00)
[2019-11-15] MEDS ORDERED: METH4TAB2 PO (11:00)
[2019-11-15 12:41] VITALS: BP 141/77
== END 2019-11-15 13:40 | disposition home or self-care (01) | DRG 193 ==
LOC: ED 15:13 → EDIP 15:58 → 3N 20:00 → DCLOUNGE 11-15 13:10
PROVIDERS: ADMIT Internal Medicine; ATTEND Internal Medicine
PROC: 5A09357 Assistance with Respiratory Ventilation, Less than 24 Consecutive Hours, Continuous Positive Airway Pressure (ICD-10-PCS; principal; 2019-11-13)
DX: J18.9 Pneumonia, unspecified organism (principal); J96.01 Acute respiratory failure with hypoxia; R65.10 Systemic inflammatory response syndrome (SIRS) of non-infectious origin without acute organ dysfunction; E87.2 Acidosis; F10.239 Alcohol dependence with withdrawal, unspecified; I10 Essential (primary) hypertension; Y90.9 Presence of alcohol in blood, level not specified; F17.200 Nicotine dependence, unspecified, uncomplicated; J43.9 Emphysema, unspecified; D72.829 Elevated white blood cell count, unspecified; Z90.49 Acquired absence of other specified parts of digestive tract; Z91.013 Allergy to seafood; Z71.41 Alcohol abuse counseling and surveillance of alcoholic; Z79.899 Other long term (current) drug therapy
CPT/HCPCS: 36415; 84145; 99291; J7620; J7626; 71045; 71046; 80048; 80053; 82040; 83605; 83735; 83880; 84100; 84484; 85025; 87040; 93005; 94640; G0378; J0456; J0696; J1650; J2920; J3475; J7030; J7050

== ENCOUNTER 2019-12-12 18:55 | Inpatient (IN) | payer MEDICAID ==
[~2019-12-12] VITALS: Ht 190.5 cm; Wt 75.4 kg
[~2019-12-12 18:55] MED LIST changes: +SIMV20TA19 PO; -SIMV20TA3 PO; +SIMV40TA20 PO; -SIMV40TA3 PO
[2019-12-12] MEDS ORDERED: ALBUTEROL/IPRATROPIUM 2.5MG/0.5MG, 3 ML ONE (19:29)
[2019-12-12] MEDS ORDERED: ALBUTEROL/IPRATROPIUM 2.5MG/0.5MG, 3 ML NPPB ONE (19:30)
--- NOTE | 2019-12-12 19:41 | NUR ---
RT neb complete. Pt reports improved breathing afterward. Pt continues to be on 4 lpm O2.
[2019-12-12 19:54] LABS: ALANINE AMINOTRANSFERASE 47 U/L (12-78); ALBUMIN 2.5 g/dL (3.4-5.0); ANION GAP 11 mmol/L (5-15); CALCIUM 6.6 mg/dL (8.5-10.1); CHLORIDE 96 mmol/L (98-107)
[2019-12-12 19:58] LABS: ALKALINE PHOSPHATASE 56 U/L (45-117); BILIRUBIN,TOTAL 0.3 mg/dL (0.2-1.0); TOTAL PROTEIN 5.4 g/dL (6.4-8.2)
[2019-12-12 20:15] LABS: BASOPHILS # (AUTO) 0.11 x10^3/uL (0-0.1); BASOPHILS % (AUTO) 2 % (0-1); EOSINOPHILS # (AUTO) 0.01 x10^3/uL (0-0.4); EOSINOPHILS % (AUTO) 0 % (1-7); LYMPHOCYTES % (AUTO) 29 % (22-44); MD SCAN; MEAN CORPUSCULAR HEMOGLOBIN 33.5 pg (27.5-34.5); MEAN CORPUSCULAR HGB CONC 33.3 g/dL (33.2-36.2); MEAN CORPUSCULAR VOLUME 100.4 fL (81-97); MEAN PLATELET VOLUME 8.2 fL (7.4-10.4); MONOCYTES # (AUTO) 0.69 x10^3/uL (0.2-0.8); MONOCYTES % (AUTO) 13 % (2-9); NEUTROPHILS # (AUTO) 2.97 x10^3/uL (1.8-6.8); NEUTROPHILS % (AUTO) 56 % (42-75); PLATELET COUNT 90 x10^3/uL (130-400); RED BLOOD COUNT 3.65 x10^6/uL (4.38-5.82); RED CELL DISTRIBUTION WIDTH 16.9 % (9.4-14.8)
[2019-12-12] MEDS ORDERED: IBUPROFEN 800 MG TABLET PO ONE (20:33)
--- NOTE | 2019-12-12 20:33 | NUR ---
Pt was measuring SpO2 below 90% at room air after removing his nasal cannula d/t "dry nose". Pt requested a third warm blanket. Temp recheck measured 100.5.
[2019-12-12] MEDS ORDERED: POTASSIUM CHLORIDE 20 MEQ TAB.ER.PRT ONE (20:41)
[2019-12-12] MEDS ORDERED: IBUPROFEN 800 MG TABLET ONE (20:41)
[2019-12-12] MEDS ORDERED: POTASSIUM CHLORIDE 20 MEQ TAB.ER.PRT PO ONE (21:00)
--- NOTE | 2019-12-12 21:28 | NUR ---
Pt now reports not feeling as chilled after receiving meds. Pt given orange juice and ice water.
[2019-12-12] MEDS ORDERED: AZITHROMYCIN 500 MG in SODIUM CHLORIDE 0.9% 250 ML IV ONE (22:30)
[2019-12-12] MEDS ORDERED: CEFTRIAXONE PMX 1GM/50ML 50 ML IV ONE (22:30)
[2019-12-12] MEDS ORDERED: CEFTRIAXONE PMX 1GM/50ML 50 ML ONE (22:42)
--- NOTE | 2019-12-12 23:50 | NUR ---
Report given to Sherine LUNA.
[2019-12-13] MEDS ORDERED: TEMAZEPAM 15 MG CAPSULE PO PRN (01:00)
[2019-12-13] MEDS ORDERED: DOCUSATE 100 MG CAPSULE PO PRN (01:00)
[2019-12-13] MEDS ORDERED: ONDANSETRON ODT 4 MG PO PRN (01:00)
[2019-12-13] MEDS ORDERED: LIDODERM 5% PATCH TD PRN (01:00)
[2019-12-13] MEDS ORDERED: ACETAMINOPHEN 325 MG TABLET PO PRN (01:00)
[2019-12-13 01:11] VITALS: BP 95/69
[2019-12-13] MEDS ORDERED: LORazepam 1MG TABLET PO PRN ×2 (01:30)
[2019-12-13] MEDS ORDERED: ALBUTEROL/IPRATROPIUM 2.5MG/0.5MG, 3 ML ONE (05:16)
[2019-12-13] MEDS ORDERED: ALBUTEROL SULFATE 2.5 MG/3 ML ONE (05:18)
[2019-12-13] MEDS: ALBUTEROL SULFATE 2.5 MG/3 ML NPPB SCH ×4 (05:20→20:15)
[2019-12-13] MEDS: NICOTINE 7 MG/24 HR PATCH.TD24 TD SCH (06:29)
[2019-12-13] MEDS: ENOXAPARIN 40 MG/0.4 ML SQ SCH (06:29)
[2019-12-13] MEDS: LORazepam 1MG TABLET PO PRN ×4 (06:29→17:55)
[2019-12-13] MEDS: CEFTRIAXONE PMX 1GM/50ML 50 ML IV SCH ×2 (07:53→19:50)
[2019-12-13 07:55] VITALS: BP 117/83
[2019-12-13] MEDS ORDERED: SODIUM CHLORIDE 0.9% 1,000 ML IV SCH (08:30)
[2019-12-13] MEDS: POTASSIUM CHLORIDE 20 MEQ TAB.ER.PRT PO SCH ×2 (08:39→10:32)
[2019-12-13] MEDS: BUDESONIDE 0.5 MG/2 ML INHA INH SCH ×2 (09:00→20:15)
[2019-12-13] MEDS ORDERED: OMNIPAQUE 350 MG/ML, 75ML BOTTLE ONE (10:11)
[2019-12-13] MEDS: AZITHROMYCIN 500 MG in SODIUM CHLORIDE 0.9% 250 ML IV SCH (10:32)
[2019-12-13] MEDS ORDERED: LORazepam 2 MG/ML, 1ML ONE (10:39)
[2019-12-13 11:10] VITALS: BP 123/87
[2019-12-13] MEDS ORDERED: HALOPERIDOL 5 MG/ML IM PRN (11:30)
[2019-12-13 13:57] VITALS: BP 145/98
[2019-12-13] MEDS: LORazepam 0.5MG TABLET PO PRN (14:04)
[2019-12-13 20:51] VITALS: BP 136/86
[2019-12-13] MEDS ORDERED: AZITHROMYCIN 500 MG TABLET PO SCH (21:00)
[2019-12-14] MEDS: ALBUTEROL SULFATE 2.5 MG/3 ML NPPB SCH ×4 (00:21→21:15)
[2019-12-14 01:28] VITALS: BP 155/91
[2019-12-14] MEDS: NICOTINE 7 MG/24 HR PATCH.TD24 TD SCH (05:27)
[2019-12-14] MEDS: ENOXAPARIN 40 MG/0.4 ML SQ SCH (05:27)
[2019-12-14 05:34] LABS: ALBUMIN 2.5 g/dL (3.4-5.0); CALCIUM 7.7 mg/dL (8.5-10.1); CHLORIDE 102 mmol/L (98-107)
[2019-12-14 05:39] LABS: ALANINE AMINOTRANSFERASE 47 U/L (12-78); ALKALINE PHOSPHATASE 78 U/L (45-117); ANION GAP 5 mmol/L (5-15); BILIRUBIN,TOTAL 0.3 mg/dL (0.2-1.0); CREATININE 0.55 mg/dL (0.7-1.3); TOTAL PROTEIN 5.5 g/dL (6.4-8.2)
[2019-12-14 06:00] LABS: MEAN CORPUSCULAR HEMOGLOBIN 33.5 pg (27.5-34.5); MEAN CORPUSCULAR HGB CONC 33.3 g/dL (33.2-36.2); MEAN CORPUSCULAR VOLUME 100.5 fL (81-97); RED BLOOD COUNT 3.69 x10^6/uL (4.38-5.82); RED CELL DISTRIBUTION WIDTH 16.2 % (9.4-14.8)
[2019-12-14 06:18] LABS: BASOPHILS # (AUTO) 0.01 x10^3/uL (0-0.1); BASOPHILS % (AUTO) 0 % (0-1); EOSINOPHILS # (AUTO) 0.01 x10^3/uL (0-0.4); EOSINOPHILS % (AUTO) 0 % (1-7); LYMPHOCYTES # (AUTO) 0.79 x10^3/uL (1-3.4); LYMPHOCYTES % (AUTO) 17 % (22-44); MD SCAN; MEAN PLATELET VOLUME 8.6 fL (7.4-10.4); MONOCYTES # (AUTO) 0.61 x10^3/uL (0.2-0.8); MONOCYTES % (AUTO) 13 % (2-9); NEUTROPHILS # (AUTO) 3.25 x10^3/uL (1.8-6.8); NEUTROPHILS % (AUTO) 70 % (42-75); PLATELET COUNT 79 x10^3/uL (130-400)
[2019-12-14 06:35] VITALS: BP 134/82
[2019-12-14] MEDS: AZITHROMYCIN 500 MG in SODIUM CHLORIDE 0.9% 250 ML IV SCH (08:16)
[2019-12-14] MEDS: CEFTRIAXONE PMX 1GM/50ML 50 ML IV SCH ×2 (08:19→20:16)
[2019-12-14] MEDS: BUDESONIDE 0.5 MG/2 ML INHA INH SCH ×2 (09:00→21:15)
[2019-12-14] MEDS: LORazepam 1MG TABLET PO PRN (11:34)
[2019-12-14 13:41] VITALS: BP 155/107
[2019-12-14 13:51] VITALS: BP 158/92
[2019-12-14] MEDS ORDERED: MAGNESIUM SULFATE 6 GM in SODIUM CHLORIDE 0.9% 250 ML IV ONE (18:00)
[2019-12-14] MEDS: POTASSIUM PHOSPHATE 44 MEQ in SODIUM CHLORIDE 0.9% 500 ML IV SCH (18:05)
[2019-12-14 20:31] VITALS: BP 165/104
[2019-12-14 21:31] VITALS: BP 143/88
[2019-12-15] MEDS: ALBUTEROL SULFATE 2.5 MG/3 ML NPPB SCH ×4 (02:20→20:21)
[2019-12-15] MEDS: POTASSIUM PHOSPHATE 44 MEQ in SODIUM CHLORIDE 0.9% 500 ML IV SCH (02:31)
[2019-12-15 02:33] VITALS: BP 152/92
[2019-12-15] MEDS: NICOTINE 7 MG/24 HR PATCH.TD24 TD SCH (04:59)
[2019-12-15] MEDS: ENOXAPARIN 40 MG/0.4 ML SQ SCH (05:00)
[2019-12-15] MEDS: BUDESONIDE 0.5 MG/2 ML INHA INH SCH ×2 (06:53→20:21)
[2019-12-15 06:54] LABS: CHLORIDE 98 mmol/L (98-107)
[2019-12-15 07:01] LABS: ALANINE AMINOTRANSFERASE 54 U/L (12-78); ALBUMIN 2.8 g/dL (3.4-5.0); ALKALINE PHOSPHATASE 75 U/L (45-117); ANION GAP 7 mmol/L (5-15); BILIRUBIN,TOTAL 0.4 mg/dL (0.2-1.0); CALCIUM 8.2 mg/dL (8.5-10.1); CREATININE 0.59 mg/dL (0.7-1.3); TOTAL PROTEIN 6.3 g/dL (6.4-8.2)
[2019-12-15 07:22] VITALS: BP 157/96
[2019-12-15] MEDS: CEFTRIAXONE PMX 1GM/50ML 50 ML IV SCH ×2 (08:50→20:37)
[2019-12-15] MEDS: AZITHROMYCIN 500 MG in SODIUM CHLORIDE 0.9% 250 ML IV SCH (10:07)
[2019-12-15] MEDS: LORazepam 0.5MG TABLET PO PRN (10:07)
[2019-12-15 13:57] VITALS: BP 156/102
[2019-12-15 20:17] VITALS: BP 152/96
[2019-12-16] MEDS: LORazepam 0.5MG TABLET PO PRN (00:17)
[2019-12-16 00:46] VITALS: BP 190/156
[2019-12-16 01:06] VITALS: BP 167/115
[2019-12-16] MEDS ORDERED: hydrALAzine 20 MG/ML, 1ML IV PRN (01:30)
[2019-12-16] MEDS: ALBUTEROL SULFATE 2.5 MG/3 ML NPPB SCH ×4 (02:31→20:02)
[2019-12-16 04:22] VITALS: BP 138/82
[2019-12-16] MEDS: ENOXAPARIN 40 MG/0.4 ML SQ SCH (05:57)
[2019-12-16] MEDS: NICOTINE 7 MG/24 HR PATCH.TD24 TD SCH (05:58)
[2019-12-16 07:00] VITALS: BP 136/93
[2019-12-16] MEDS: CEFTRIAXONE PMX 1GM/50ML 50 ML IV SCH ×2 (08:39→20:03)
[2019-12-16] MEDS: BUDESONIDE 0.5 MG/2 ML INHA INH SCH ×2 (09:30→20:02)
[2019-12-16] MEDS: AZITHROMYCIN 500 MG in SODIUM CHLORIDE 0.9% 250 ML IV SCH (10:21)
[2019-12-16 12:06] VITALS: BP 148/99
[2019-12-16] MEDS: LISINOPRIL 10 MG TABLET PO SCH (12:06)
[2019-12-16] MEDS: CARVEDILOL 3.125 MG TABLET PO SCH (18:02)
[2019-12-16 19:56] VITALS: BP 130/73
[2019-12-17 03:00] VITALS: BP 135/89
[2019-12-17] MEDS: ALBUTEROL SULFATE 2.5 MG/3 ML NPPB SCH ×4 (03:01→19:53)
[2019-12-17] MEDS: CARVEDILOL 3.125 MG TABLET PO SCH ×2 (05:20→16:58)
[2019-12-17] MEDS: NICOTINE 7 MG/24 HR PATCH.TD24 TD SCH (05:20)
[2019-12-17] MEDS: ENOXAPARIN 40 MG/0.4 ML SQ SCH (05:21)
[2019-12-17 06:19] LABS: ANION GAP 5 mmol/L (5-15); CALCIUM 8.8 mg/dL (8.5-10.1); CHLORIDE 100 mmol/L (98-107)
[2019-12-17 06:25] LABS: CREATININE 0.59 mg/dL (0.7-1.3)
[2019-12-17 07:46] VITALS: BP 141/94
[2019-12-17] MEDS: LISINOPRIL 10 MG TABLET PO SCH (07:55)
[2019-12-17] MEDS: CEFTRIAXONE PMX 1GM/50ML 50 ML IV SCH ×2 (07:55→19:50)
[2019-12-17] MEDS: AZITHROMYCIN 500 MG in SODIUM CHLORIDE 0.9% 250 ML IV SCH (09:15)
[2019-12-17] MEDS: BUDESONIDE 0.5 MG/2 ML INHA INH SCH ×2 (09:30→19:53)
[2019-12-17] MEDS ORDERED: MAGNESIUM SULFATE PMX 2GM/50ML 50 ML IV ONE (09:30)
[2019-12-17 14:12] VITALS: BP 135/82
[2019-12-17 16:57] VITALS: BP 139/97
[2019-12-17] MEDS ORDERED: FUROSEMIDE 40 MG/4 ML IV ONE (17:00)
[2019-12-17 19:59] VITALS: BP 108/76
[2019-12-18 02:15] VITALS: BP 158/98
[2019-12-18] MEDS: ALBUTEROL SULFATE 2.5 MG/3 ML NPPB SCH ×3 (02:59→15:00)
[2019-12-18] MEDS: ENOXAPARIN 40 MG/0.4 ML SQ SCH (05:15)
[2019-12-18] MEDS: CARVEDILOL 3.125 MG TABLET PO SCH (05:16)
[2019-12-18] MEDS: NICOTINE 7 MG/24 HR PATCH.TD24 TD SCH (05:16)
[2019-12-18] MEDS: BUDESONIDE 0.5 MG/2 ML INHA INH SCH (06:40)
[2019-12-18 07:41] VITALS: BP 143/97
[2019-12-18] MEDS: LISINOPRIL 10 MG TABLET PO SCH (08:44)
[2019-12-18] MEDS: CEFTRIAXONE PMX 1GM/50ML 50 ML IV SCH (09:59)
[2019-12-18] MEDS: AZITHROMYCIN 500 MG in SODIUM CHLORIDE 0.9% 250 ML IV SCH (11:23)
[2019-12-18 13:02] VITALS: BP 138/90
[2019-12-18] MEDS ORDERED: LISI-167 PO (14:40)
[2019-12-18] MEDS ORDERED: CEFD300C37 PO (14:40)
[2019-12-18] MEDS ORDERED: IPRA3AMP30 INH (14:40)
[2019-12-18] MEDS ORDERED: AZIT500T PO (14:40)
[2019-12-18] MEDS ORDERED: DOCU100C33 PO (14:40)
[2019-12-18] MEDS ORDERED: BUDE0.5A INH (14:40)
[2019-12-18] MEDS ORDERED: CARV3.1212 PO (14:40)
[2019-12-18] MEDS ORDERED: PRED5TAB PO (14:40)
== END 2019-12-18 15:31 | disposition home or self-care (01) | DRG 193 ==
LOC: ED 19:51 → EDIP 22:10 → 4NE 12-13 00:15 → 4WST 12-13 13:47 → 4EST 12-15 19:27 → 4WST 12-17 20:43 → DCLOUNGE 12-18 15:23
PROVIDERS: ADMIT Family Medicine; ATTEND Internal Medicine
DX: J18.9 Pneumonia, unspecified organism (principal); J96.01 Acute respiratory failure with hypoxia; E87.1 Hypo-osmolality and hyponatremia; F10.239 Alcohol dependence with withdrawal, unspecified; D53.9 Nutritional anemia, unspecified; D69.6 Thrombocytopenia, unspecified; D75.89 Other specified diseases of blood and blood-forming organs; E16.2 Hypoglycemia, unspecified; E83.39 Other disorders of phosphorus metabolism; E83.42 Hypomagnesemia; E87.6 Hypokalemia; F17.210 Nicotine dependence, cigarettes, uncomplicated; I10 Essential (primary) hypertension; J43.9 Emphysema, unspecified; Y90.8 Blood alcohol level of 240 mg/100 ml or more; Z91.14 Patient's other noncompliance with medication regimen; Z91.013 Allergy to seafood; Z91.018 Allergy to other foods
CPT/HCPCS: 36415; 36600; 96365; 99285; J7613; J7620; J7626; 71046; 71260; 80048; 80053; 80307; 82803; 82962; 83735; 83880; 84100; 85025; 93005; 94640; G0378; J0456; J0696; J1650; J1940; J3475; Q9967; J0360; J7030; J7040; J7050; J7512

== ENCOUNTER 2019-12-31 16:38 | Inpatient (IN) | payer MEDICAID ==
[~2019-12-31] VITALS: Ht 190.5 cm; Wt 78.6 kg
[~2019-12-31 16:38] MED LIST changes: +BUDE0.5A INH; +DOCU100C33 PO
--- NOTE | 2019-12-31 16:42 | NUR ---
THIS IS A 54 YO M W/ C/O "PAIN FROM KNEES UP, EVERYTHING HURTS". PT REPORTS BILAT KNEE PAIN AND NECK PAIN. PT REPORTS SORE THROAT. PT STATES HES "BEEN SOB FOR YEARS". PT SEEN AT [facility] X1 WEEK AGO FOR SOB. PT IS TACHYCARDIC, OTHER VS WDL. RESP EVEN AND UNLABORED, NADN. PT IS RESTING ON GURNEY W/ CALL LIGHT IN REACH, BLANKET PROVIDED. AWAITING ED EVAL.
--- NOTE | 2019-12-31 17:22 | NUR ---
RAD IN ROOM.
[2019-12-31] MEDS ORDERED: KETOROLAC 30 MG/1 ML IVPush ONE (17:30)
[2019-12-31] MEDS ORDERED: SODIUM CHLORIDE 0.9% 1,000ML IVBOLUS ONE (17:30)
[2019-12-31] MEDS ORDERED: SODIUM CHLORIDE FLUSH 10ML SYR IVF ONE (18:30)
[2019-12-31] MEDS ORDERED: KETOROLAC 30 MG/1 ML ONE (18:39)
[2019-12-31] MEDS ORDERED: MORPHINE SULFATE 4 MG/ML, 1ML ONE ×2 (18:40→20:13)
[2019-12-31] MEDS: MORPHINE SULFATE 4 MG/ML, 1ML IVPush PRN (18:43)
--- NOTE | 2019-12-31 18:45 | NUR ---
PT MEDICATED PER EMAR.
[2019-12-31 18:57] LABS: MEAN CORPUSCULAR HEMOGLOBIN 32.9 pg (27.5-34.5); MEAN CORPUSCULAR HGB CONC 33.2 g/dL (33.2-36.2); MEAN CORPUSCULAR VOLUME 99.2 fL (81-97); MEAN PLATELET VOLUME 8.9 fL (7.4-10.4); PLATELET COUNT 281 x10^3/uL (130-400); RED BLOOD COUNT 4.53 x10^6/uL (4.38-5.82); RED CELL DISTRIBUTION WIDTH 15.8 % (9.4-14.8)
[2019-12-31 19:04] LABS: ALANINE AMINOTRANSFERASE 78 U/L (12-78); ALBUMIN 3.2 g/dL (3.4-5.0); ANION GAP 12 mmol/L (5-15); CALCIUM 8.9 mg/dL (8.5-10.1); CHLORIDE 92 mmol/L (98-107)
[2019-12-31 19:07] LABS: ALKALINE PHOSPHATASE 77 U/L (45-117); BILIRUBIN,TOTAL 0.2 mg/dL (0.2-1.0); CREATINE KINASE, TOTAL 161 U/L (39-308); TOTAL PROTEIN 6.6 g/dL (6.4-8.2)
[2019-12-31 19:13] LABS: MD YES
[2019-12-31 19:15] LABS: ANISOCYTOSIS 1+; BAND#(MANUAL) 0.17 x10^3/uL; BANDS%(MANUAL) 1 % (0-7); LYMPHS% (MANUAL) 26 % (22-44); METAMYELOCYTES# (MANUAL) 0.35 x10^3/uL (0-0); METAMYELOCYTES% (MANUAL) 2 % (0-1); MONOS#(MANUAL) 1.21 x10^3/uL (0.3-2.7); MONOS% (MANUAL) 7 % (2-9); MYELOCYTES# (MANUAL) 0.35 x10^3/uL (0-0); MYELOCYTES% (MANUAL) 2 % (0-0); SEG#(MANUAL) 10.73 x10^3/uL (1.8-6.8); SEGS% (MANUAL) 62 % (42-75)
[2019-12-31 19:16] LABS: <PLATELET ESTIMATE> ADEQUATE; <PLT MORPHOLOGY> NORMAL PLT MORPH
[2019-12-31] MEDS ORDERED: morphine SULFATE 10 MG/ML, 1ML IVPush ONE (20:00)
[2019-12-31 20:22] LABS: RAPID INFLUENZA A Negative (Negative); RAPID INFLUENZA B Negative (Negative)
[2019-12-31] MEDS ORDERED: DOCUSATE 100 MG CAPSULE PO PRN (20:30)
[2019-12-31] MEDS ORDERED: BISACODYL 10 MG SUPP PR PRN (21:00)
[2019-12-31] MEDS ORDERED: ACETAMINOPHEN 325 MG TABLET PO PRN (21:00)
[2019-12-31] MEDS: BUDESONIDE 0.5 MG/2 ML INHA INH SCH (21:00)
[2019-12-31] MEDS ORDERED: POLYETHYLENE GLYCOL 17 GM PACKET PO PRN (21:00)
[2019-12-31] MEDS ORDERED: ONDANSETRON ODT 4 MG PO PRN (21:00)
[2019-12-31 21:07] VITALS: BP 119/75
[2019-12-31] MEDS: SODIUM CHLORIDE 0.9% 1,000 ML IV SCH (22:12)
[2019-12-31] MEDS: CARVEDILOL 3.125 MG TABLET PO SCH (22:12)
[2019-12-31] MEDS: HEPARIN 5,000 UNITS/ML, 1ML SQ SCH (22:13)
[2020-01-01 01:00] VITALS: BP 125/80
[2020-01-01] MEDS: KETOROLAC 30 MG/1 ML IV PRN ×3 (02:14→18:22)
[2020-01-01] MEDS: MORPHINE SULFATE 4 MG/ML, 1ML IVPush PRN ×2 (02:56→13:12)
[2020-01-01] MEDS: SODIUM CHLORIDE 0.9% 1,000 ML IV SCH ×2 (05:31→14:55)
[2020-01-01] MEDS: HEPARIN 5,000 UNITS/ML, 1ML SQ SCH ×3 (05:32→20:58)
[2020-01-01] MEDS: CARVEDILOL 3.125 MG TABLET PO SCH ×2 (05:32→17:07)
[2020-01-01 05:52] LABS: MEAN CORPUSCULAR HEMOGLOBIN 32.7 pg (27.5-34.5); MEAN CORPUSCULAR HGB CONC 32.7 g/dL (33.2-36.2); MEAN CORPUSCULAR VOLUME 99.9 fL (81-97); MEAN PLATELET VOLUME 8.2 fL (7.4-10.4); PLATELET COUNT 224 x10^3/uL (130-400); RED BLOOD COUNT 3.65 x10^6/uL (4.38-5.82); RED CELL DISTRIBUTION WIDTH 16.2 % (9.4-14.8)
[2020-01-01 05:55] LABS: ANION GAP 6 mmol/L (5-15); CHLORIDE 98 mmol/L (98-107)
[2020-01-01 05:57] LABS: CREATININE 0.67 mg/dL (0.7-1.3)
[2020-01-01 06:14] LABS: MD YES
[2020-01-01 06:16] LABS: <PLATELET ESTIMATE> ADEQUATE; <PLT MORPHOLOGY> NORMAL PLT MORPH; ANISOCYTOSIS 1+; BAND#(MANUAL) 0.11 x10^3/uL; BANDS%(MANUAL) 1 % (0-7); EOS#(MANUAL) 0.11 x10^3/uL (0.0-0.4); EOS% (MANUAL) 1 % (1-7); LYMPH#(MANUAL) 1.67 x10^3/uL (1-3.4); LYMPHS% (MANUAL) 15 % (22-44); METAMYELOCYTES# (MANUAL) 0.11 x10^3/uL (0-0); METAMYELOCYTES% (MANUAL) 1 % (0-1); MONOS#(MANUAL) 0.44 x10^3/uL (0.3-2.7); MONOS% (MANUAL) 4 % (2-9); MYELOCYTES# (MANUAL) 0.11 x10^3/uL (0-0); MYELOCYTES% (MANUAL) 1 % (0-0); SEG#(MANUAL) 8.55 x10^3/uL (1.8-6.8); SEGS% (MANUAL) 77 % (42-75)
[2020-01-01 06:30] VITALS: BP 123/65
[2020-01-01] MEDS: LISINOPRIL 10 MG TABLET PO SCH (08:33)
[2020-01-01] MEDS: SENNA/DOCUSATE TABLET PO SCH (08:33)
[2020-01-01 13:29] VITALS: BP 151/90
[2020-01-01] MEDS: BUDESONIDE 0.5 MG/2 ML INHA INH SCH (15:41)
[2020-01-01 16:10] LABS: CHLORIDE,URINE RANDOM 48 mmol/L; POTASSIUM,URINE RANDOM 10 mmol/L; SODIUM,URINE RANDOM 41 mmol/L
[2020-01-01 17:01] LABS: OSMOLALITY,URINE 144 mOsm/kg (500-850)
[2020-01-01] MEDS: OXYcodone IR 5MG TABLET PO PRN (17:06)
[2020-01-01] MEDS: GABAPENTIN 100 MG CAPSULE PO SCH ×2 (17:07→20:58)
[2020-01-01 20:16] VITALS: BP 137/90
[2020-01-02 00:01] VITALS: BP 144/95
[2020-01-02] MEDS: OXYcodone IR 5MG TABLET PO PRN ×4 (00:03→21:09)
[2020-01-02] MEDS: KETOROLAC 30 MG/1 ML IV PRN ×2 (02:32→08:17)
[2020-01-02] MEDS: SODIUM CHLORIDE 0.9% 1,000 ML IV SCH ×2 (02:33→10:15)
[2020-01-02] MEDS ORDERED: ALBUTEROL/IPRATROPIUM 2.5MG/0.5MG, 3 ML ONE ×2 (02:47→06:32)
[2020-01-02] MEDS: BUDESONIDE 0.5 MG/2 ML INHA INH SCH ×3 (02:49→20:47)
[2020-01-02 05:12] LABS: ANION GAP 5 mmol/L (5-15); CALCIUM 8.1 mg/dL (8.5-10.1); CHLORIDE 103 mmol/L (98-107); CREATININE 0.57 mg/dL (0.7-1.3)
[2020-01-02] MEDS: CARVEDILOL 3.125 MG TABLET PO SCH ×2 (06:04→16:31)
[2020-01-02] MEDS: HEPARIN 5,000 UNITS/ML, 1ML SQ SCH ×3 (06:04→21:08)
[2020-01-02 07:40] VITALS: BP 133/78
[2020-01-02] MEDS: LISINOPRIL 10 MG TABLET PO SCH (08:17)
[2020-01-02] MEDS: GABAPENTIN 100 MG CAPSULE PO SCH (08:17)
[2020-01-02] MEDS: SENNA/DOCUSATE TABLET PO SCH (08:19)
[2020-01-02] MEDS ORDERED: BUDESONIDE 0.5 MG/2 ML INHA INH SCH (10:00)
[2020-01-02] MEDS: methylPREDNISolone SOD SUCC 40 MG/ML IV SCH ×2 (10:15→21:08)
[2020-01-02 13:08] VITALS: BP 166/95
[2020-01-02] MEDS: ALBUTEROL/IPRATROPIUM 2.5MG/0.5MG, 3 ML HHN SCH ×2 (13:11→20:47)
[2020-01-02] MEDS: GABAPENTIN 400 MG CAPSULE PO SCH ×2 (15:36→21:08)
[2020-01-02 16:26] VITALS: BP 177/109
[2020-01-02 18:30] VITALS: BP 157/97
[2020-01-03 00:09] VITALS: BP_SYST 161; BP_SYST 187; BP_DIAS 109; BP_DIAS 113
[2020-01-03] MEDS ORDERED: hydrALAzine 20 MG/ML, 1ML IV ONE (00:30)
[2020-01-03] MEDS: ALBUTEROL/IPRATROPIUM 2.5MG/0.5MG, 3 ML HHN SCH ×4 (03:50→19:45)
[2020-01-03] MEDS: HEPARIN 5,000 UNITS/ML, 1ML SQ SCH ×3 (05:51→22:00)
[2020-01-03] MEDS: OXYcodone IR 5MG TABLET PO PRN ×2 (05:51→20:33)
[2020-01-03] MEDS: CARVEDILOL 3.125 MG TABLET PO SCH ×2 (05:51→19:09)
[2020-01-03] MEDS: BUDESONIDE 0.5 MG/2 ML INHA INH SCH ×2 (06:31→19:45)
[2020-01-03 06:42] VITALS: BP 160/85
[2020-01-03] MEDS ORDERED: LISINOPRIL 20 MG TABLET PO SCH (09:00)
[2020-01-03] MEDS ORDERED: GADOTERATE 7.5 MMOL/15 ML SYR ONE (09:31)
[2020-01-03] MEDS: SENNA/DOCUSATE TABLET PO SCH (10:26)
[2020-01-03] MEDS: AZITHROMYCIN 500 MG TABLET PO SCH (10:26)
[2020-01-03] MEDS: GABAPENTIN 400 MG CAPSULE PO SCH ×3 (10:27→20:30)
[2020-01-03] MEDS: methylPREDNISolone SOD SUCC 40 MG/ML IV SCH ×2 (10:27→19:09)
[2020-01-03] MEDS: KETOROLAC 30 MG/1 ML IV PRN (10:27)
[2020-01-03 13:36] VITALS: BP 150/89
[2020-01-03 18:59] VITALS: BP 156/85
[2020-01-04] MEDS: ALBUTEROL/IPRATROPIUM 2.5MG/0.5MG, 3 ML HHN SCH ×4 (01:39→19:27)
[2020-01-04] MEDS: methylPREDNISolone SOD SUCC 40 MG/ML IV SCH ×2 (01:49→09:24)
[2020-01-04 02:59] VITALS: BP 153/82
[2020-01-04 04:30] LABS: BASOPHILS # (AUTO) 0.01 x10^3/uL (0-0.1); BASOPHILS % (AUTO) 0 % (0-1); EOSINOPHILS # (AUTO) 0.13 x10^3/uL (0-0.4); EOSINOPHILS % (AUTO) 1 % (1-7); LYMPHOCYTES # (AUTO) 0.66 x10^3/uL (1-3.4); LYMPHOCYTES % (AUTO) 6 % (22-44); MD NO; MEAN CORPUSCULAR HEMOGLOBIN 32.7 pg (27.5-34.5); MEAN CORPUSCULAR HGB CONC 33.2 g/dL (33.2-36.2); MEAN CORPUSCULAR VOLUME 98.7 fL (81-97); MEAN PLATELET VOLUME 8.6 fL (7.4-10.4); MONOCYTES # (AUTO) 0.49 x10^3/uL (0.2-0.8); MONOCYTES % (AUTO) 4 % (2-9); NEUTROPHILS # (AUTO) 10.46 x10^3/uL (1.8-6.8); NEUTROPHILS % (AUTO) 89 % (42-75); PLATELET COUNT 202 x10^3/uL (130-400); RED BLOOD COUNT 3.57 x10^6/uL (4.38-5.82); RED CELL DISTRIBUTION WIDTH 15.7 % (9.4-14.8)
[2020-01-04 04:44] LABS: ANION GAP 5 mmol/L (5-15); CALCIUM 8.7 mg/dL (8.5-10.1); CHLORIDE 104 mmol/L (98-107)
[2020-01-04 04:46] LABS: CREATININE 0.62 mg/dL (0.7-1.3)
[2020-01-04] MEDS: CARVEDILOL 3.125 MG TABLET PO SCH ×2 (05:23→17:25)
[2020-01-04] MEDS: HEPARIN 5,000 UNITS/ML, 1ML SQ SCH ×4 (05:23→21:21)
[2020-01-04 06:49] VITALS: BP 160/101
[2020-01-04] MEDS: BUDESONIDE 0.5 MG/2 ML INHA INH SCH ×2 (07:18→19:27)
[2020-01-04] MEDS: GABAPENTIN 400 MG CAPSULE PO SCH ×3 (09:25→20:50)
[2020-01-04] MEDS: LISINOPRIL 20 MG TABLET PO SCH (09:25)
[2020-01-04] MEDS: AZITHROMYCIN 500 MG TABLET PO SCH (09:25)
[2020-01-04] MEDS: SENNA/DOCUSATE TABLET PO SCH (09:26)
[2020-01-04] MEDS: KETOROLAC 30 MG/1 ML IV PRN ×3 (09:37→22:55)
[2020-01-04 13:38] VITALS: BP 161/92
[2020-01-04] MEDS: AMLODIPINE 5 MG TABLET PO SCH (15:20)
[2020-01-04 19:44] VITALS: BP 169/96
[2020-01-04] MEDS ORDERED: methylPREDNISolone SOD SUCC 40 MG/ML IV SCH (21:00)
[2020-01-05 00:26] VITALS: BP 160/93
[2020-01-05] MEDS: ALBUTEROL/IPRATROPIUM 2.5MG/0.5MG, 3 ML HHN SCH ×2 (02:28→08:55)
[2020-01-05] MEDS: CARVEDILOL 3.125 MG TABLET PO SCH (06:16)
[2020-01-05] MEDS: HEPARIN 5,000 UNITS/ML, 1ML SQ SCH (06:16)
[2020-01-05] MEDS: AMLODIPINE 5 MG TABLET PO SCH ×2 (06:16→09:00)
[2020-01-05 06:44] VITALS: BP 159/98
[2020-01-05] MEDS: GABAPENTIN 400 MG CAPSULE PO SCH (08:21)
[2020-01-05] MEDS: AZITHROMYCIN 500 MG TABLET PO SCH (08:22)
[2020-01-05] MEDS: SENNA/DOCUSATE TABLET PO SCH (08:22)
[2020-01-05] MEDS: LISINOPRIL 20 MG TABLET PO SCH (08:22)
[2020-01-05] MEDS ORDERED: GABA-827 PO (08:43)
[2020-01-05] MEDS ORDERED: LISI40TA PO (08:43)
[2020-01-05] MEDS ORDERED: PRED20TA PO (08:43)
[2020-01-05] MEDS ORDERED: PRED10TA PO (08:43)
[2020-01-05] MEDS ORDERED: AZIT500T10 PO (08:43)
[2020-01-05] MEDS ORDERED: AMLO10TA8 PO (08:43)
[2020-01-05] MEDS ORDERED: CARV3.1212 PO (08:43)
[2020-01-05] MEDS: BUDESONIDE 0.5 MG/2 ML INHA INH SCH (08:55)
[2020-01-05] MEDS ORDERED: methylPREDNISolone SOD SUCC 40 MG/ML IV ONE (09:00)
[2020-01-05] MEDS: KETOROLAC 30 MG/1 ML IV PRN (10:14)
== END 2020-01-05 10:52 | disposition home or self-care (01) | DRG 872 ==
LOC: ED 19:49 → EDIP 20:45 → 3N 20:46 → DCLOUNGE 01-05 10:44
PROVIDERS: ADMIT Family Medicine; ATTEND Hospitalist
DX: A41.89 Other specified sepsis (principal); E87.1 Hypo-osmolality and hyponatremia; J44.1 Chronic obstructive pulmonary disease with (acute) exacerbation; B97.89 Other viral agents as the cause of diseases classified elsewhere; D53.9 Nutritional anemia, unspecified; D75.89 Other specified diseases of blood and blood-forming organs; E16.2 Hypoglycemia, unspecified; E78.5 Hyperlipidemia, unspecified; F10.10 Alcohol abuse, uncomplicated; F12.90 Cannabis use, unspecified, uncomplicated; F17.200 Nicotine dependence, unspecified, uncomplicated; G57.83 Other specified mononeuropathies of bilateral lower limbs; I10 Essential (primary) hypertension; J98.4 Other disorders of lung; M51.27 Other intervertebral disc displacement, lumbosacral region; Z87.01 Personal history of pneumonia (recurrent); Z90.49 Acquired absence of other specified parts of digestive tract; Z79.899 Other long term (current) drug therapy; Z91.013 Allergy to seafood
CPT/HCPCS: 36415; 73564; 87400; 99285; J7626; 71045; 72158; 80048; 80053; 82436; 82550; 82607; 83930; 83935; 84133; 84300; 85025; 94640; G0378; J1644; J1885; A9575; J0360; J2270; J2920; J7030; J7512

== ENCOUNTER 2020-01-12 20:26 | Emergency (ER) | payer MEDICAID ==
[~2020-01-12] VITALS: Ht 190.5 cm; Wt 91.9 kg
[~2020-01-12 20:26] MED LIST changes: +AMLO10TA8 PO; +GABA-827 PO; +LISI40TA PO
[2020-01-12 20:42] VITALS: BP 115/88
[2020-01-12] MEDS ORDERED: METHOCARBAMOL 750 MG TABLET PO ONE (21:30)
[2020-01-12] MEDS ORDERED: METHOCARBAMOL 750 MG TABLET ONE (21:30)
[2020-01-12] MEDS ORDERED: KETOROLAC 30 MG/1 ML IM ONE (21:30)
[2020-01-12] MEDS ORDERED: KETOROLAC 30 MG/1 ML ONE (21:30)
--- NOTE | 2020-01-12 21:37 | NUR ---
PT MEDICATED PER MAR FOR PAIN. BLANKET PROVIDED FOR COMFORT. CALL LIGHT WITHIN REACH
--- NOTE | 2020-01-12 22:01 | NUR ---
PT TAKEN TO RAD
== END 2020-01-12 22:57 | disposition home or self-care (01) ==
LOC: ED 21:26
DX: M51.16 Intervertebral disc disorders with radiculopathy, lumbar region (principal); G89.29 Other chronic pain; I10 Essential (primary) hypertension; F10.10 Alcohol abuse, uncomplicated; Z87.891 Personal history of nicotine dependence; Z72.9 Problem related to lifestyle, unspecified; Y90.9 Presence of alcohol in blood, level not specified
CPT/HCPCS: 72110; 96372; 99283; J1885

== ENCOUNTER 2020-01-15 01:57 | Inpatient (IN) | payer MEDICAID ==
[~2020-01-15] VITALS: Ht 190.5 cm; Wt 81.8 kg
[2020-01-15] MEDS ORDERED: MAGNESIUM SULFATE PMX 2GM/50ML 50 ML ONE (02:29)
[2020-01-15] MEDS ORDERED: MAGNESIUM SULFATE PMX 2GM/50ML 50 ML IVPB ONE (02:30)
[2020-01-15] MEDS ORDERED: ALBUTEROL/IPRATROPIUM 2.5MG/0.5MG, 3 ML NPPB ONE (02:30)
[2020-01-15] MEDS ORDERED: ALBUTEROL/IPRATROPIUM 2.5MG/0.5MG, 3 ML ONE (03:03)
--- NOTE | 2020-01-15 03:14 | NUR ---
TASK RN: IV ESTABLISHED AND LABS DRAWN, LABELED AND GIVEN TO KNOCK OUT HANDJOHN
--- NOTE | 2020-01-15 03:21 | NUR ---
Late entry: Patient presents to ER c/o SOB. Patient states it started a couple days ago but is worse today. He has a hx of COPD. Patient denies CP or dizziness. He does not wear oxygen at home. Patient is speaking in 2-3 word sentences and has audible wheezes.
[2020-01-15 03:28] LABS: ALBUMIN 3.3 g/dL (3.4-5.0); ANION GAP 9 mmol/L (5-15); CHLORIDE 95 mmol/L (98-107); CREATININE 0.51 mg/dL (0.7-1.3)
[2020-01-15 03:29] LABS: BASOPHILS # (AUTO) 0.03 x10^3/uL (0-0.1); BASOPHILS % (AUTO) 0 % (0-1); EOSINOPHILS # (AUTO) 0.05 x10^3/uL (0-0.4); EOSINOPHILS % (AUTO) 0 % (1-7); LYMPHOCYTES # (AUTO) 0.82 x10^3/uL (1-3.4); LYMPHOCYTES % (AUTO) 6 % (22-44); MD NO; MEAN CORPUSCULAR HEMOGLOBIN 32.6 pg (27.5-34.5); MEAN CORPUSCULAR HGB CONC 33.3 g/dL (33.2-36.2); MEAN CORPUSCULAR VOLUME 97.9 fL (81-97); MEAN PLATELET VOLUME 7.8 fL (7.4-10.4); MONOCYTES # (AUTO) 0.91 x10^3/uL (0.2-0.8); MONOCYTES % (AUTO) 7 % (2-9); NEUTROPHILS # (AUTO) 11.29 x10^3/uL (1.8-6.8); NEUTROPHILS % (AUTO) 86 % (42-75); PLATELET COUNT 184 x10^3/uL (130-400); RED BLOOD COUNT 3.64 x10^6/uL (4.38-5.82); RED CELL DISTRIBUTION WIDTH 16.4 % (9.4-14.8)
--- NOTE | 2020-01-15 04:06 | NUR ---
Patient resting in gurney with no complaints. Respirations even and unlabored. Patient to be admitted.
[2020-01-15] MEDS ORDERED: SODIUM CHLORIDE 0.9% 1,000ML IVBOLUS ONE (04:30)
[2020-01-15] MEDS ORDERED: PRED20TA PO (04:30)
[2020-01-15] MEDS ORDERED: SODIUM CHLORIDE FLUSH 10ML SYR IVF ONE (04:30)
[2020-01-15] MEDS ORDERED: POTASSIUM CHLORIDE 20 MEQ, MAGNESIUM SULFATE 2 GM, THIAMINE 200 MG, MVI ADULT 10 ML, FO... IV SCH (05:17)
[2020-01-15] MEDS ORDERED: ENALAPRILAT 1.25 MG/ML, 2ML IVPush PRN (05:30)
[2020-01-15] MEDS ORDERED: ONDANSETRON 2MG/ML, 2ML IVPush PRN (05:30)
[2020-01-15] MEDS ORDERED: ACETAMINOPHEN 325 MG TABLET PO PRN (05:30)
--- NOTE | 2020-01-15 05:42 | NUR ---
Report given to JEREMY Winter. Patient to be transferred to room 371.
[2020-01-15 06:02] VITALS: BP 155/90
[2020-01-15] MEDS: methylPREDNISolone SOD SUCC 125 MG/2 ML IVPush SCH ×4 (06:32→23:34)
[2020-01-15] MEDS: BUDESONIDE 0.5 MG/2 ML INHA NPPB SCH ×2 (09:00→19:23)
[2020-01-15 13:10] VITALS: BP 156/91
[2020-01-15] MEDS: ALBUTEROL SULFATE 2.5 MG/3 ML NPPB SCH ×3 (13:54→19:23)
[2020-01-15] MEDS: LISINOPRIL 40 MG TABLET PO SCH (15:14)
[2020-01-15 19:50] VITALS: BP 134/85
[2020-01-16 01:02] VITALS: BP 159/93
[2020-01-16] MEDS: ALBUTEROL SULFATE 2.5 MG/3 ML NPPB SCH ×4 (01:53→15:20)
[2020-01-16 05:11] LABS: BASOPHILS # (AUTO) 0.01 x10^3/uL (0-0.1); BASOPHILS % (AUTO) 0 % (0-1); EOSINOPHILS # (AUTO) 0.07 x10^3/uL (0-0.4); EOSINOPHILS % (AUTO) 1 % (1-7); LYMPHOCYTES # (AUTO) 0.25 x10^3/uL (1-3.4); LYMPHOCYTES % (AUTO) 3 % (22-44); MD NO; MEAN CORPUSCULAR HEMOGLOBIN 33.1 pg (27.5-34.5); MEAN CORPUSCULAR VOLUME 97.4 fL (81-97); MEAN PLATELET VOLUME 7.9 fL (7.4-10.4); MONOCYTES # (AUTO) 0.31 x10^3/uL (0.2-0.8); MONOCYTES % (AUTO) 4 % (2-9); NEUTROPHILS # (AUTO) 7.06 x10^3/uL (1.8-6.8); NEUTROPHILS % (AUTO) 92 % (42-75); PLATELET COUNT 173 x10^3/uL (130-400); RED BLOOD COUNT 3.32 x10^6/uL (4.38-5.82); RED CELL DISTRIBUTION WIDTH 15.8 % (9.4-14.8)
[2020-01-16 05:25] LABS: ANION GAP 6 mmol/L (5-15); CALCIUM 8.2 mg/dL (8.5-10.1); CHLORIDE 105 mmol/L (98-107); CREATININE 0.45 mg/dL (0.7-1.3)
[2020-01-16] MEDS: methylPREDNISolone SOD SUCC 125 MG/2 ML IVPush SCH ×2 (05:39→12:07)
[2020-01-16 07:01] VITALS: BP 126/72
[2020-01-16] MEDS: LISINOPRIL 40 MG TABLET PO SCH (09:03)
[2020-01-16] MEDS: BUDESONIDE 0.5 MG/2 ML INHA NPPB SCH (09:36)
[2020-01-16] MEDS ORDERED: TIOT18CA INH (11:59)
[2020-01-16] MEDS ORDERED: ALBU8.5H8 INH (11:59)
[2020-01-16] MEDS ORDERED: BUDE10.2 INH (11:59)
== END 2020-01-16 15:28 | disposition home or self-care (01) | DRG 191 ==
LOC: ED 04:18 → EDIP 04:55 → 3N 05:50
PROVIDERS: ADMIT Family Medicine; ATTEND Family Medicine
DX: J43.9 Emphysema, unspecified (principal); E87.1 Hypo-osmolality and hyponatremia; D53.9 Nutritional anemia, unspecified; E16.2 Hypoglycemia, unspecified; I10 Essential (primary) hypertension; E78.5 Hyperlipidemia, unspecified; D72.829 Elevated white blood cell count, unspecified; F10.10 Alcohol abuse, uncomplicated; F12.90 Cannabis use, unspecified, uncomplicated; F17.210 Nicotine dependence, cigarettes, uncomplicated; G89.29 Other chronic pain; M54.10 Radiculopathy, site unspecified; Z79.52 Long term (current) use of systemic steroids; Z87.11 Personal history of peptic ulcer disease; Z91.14 Patient's other noncompliance with medication regimen
CPT/HCPCS: 36415; 84145; J7042; J7613; J7626; 71045; 80048; 82040; 83880; 85025; 93005; 94640; G0378; J3411; J3475; J3480; J2930; J7030; J7512

== ENCOUNTER 2020-01-19 20:51 | Emergency (ER) | payer MEDICAID ==
[~2020-01-19] VITALS: Ht 190.5 cm; Wt 81.8 kg
[2020-01-19] MEDS ORDERED: ALBUTEROL SULFATE 2.5MG/0.5ML ONE (21:27)
[2020-01-19] MEDS ORDERED: ALBUTEROL/IPRATROPIUM 2.5MG/0.5MG, 3 ML ONE (21:27)
[2020-01-19] MEDS ORDERED: ALBUTEROL/IPRATROPIUM 2.5MG/0.5MG, 3 ML NPPB ONE (21:30)
[2020-01-19] MEDS ORDERED: methylPREDNISolone SOD SUCC 125 MG/2 ML IV ONE (21:30)
[2020-01-19] MEDS ORDERED: SODIUM CHLORIDE 0.9% 1,000ML IVBOLUS ONE (21:30)
[2020-01-19] MEDS ORDERED: SODIUM CHLORIDE FLUSH 10ML SYR IVF ONE (21:30)
[2020-01-19] MEDS ORDERED: methylPREDNISolone SOD SUCC 125 MG/2 ML ONE (21:37)
[2020-01-19 22:05] LABS: ALBUMIN 3.3 g/dL (3.4-5.0); ANION GAP 10 mmol/L (5-15); CALCIUM 8.4 mg/dL (8.5-10.1); CHLORIDE 98 mmol/L (98-107)
--- NOTE | 2020-01-19 22:05 | NUR ---
REPORT FROM MELANIE LUNA. PT RESTING IN NAD. CALL LIGHT IN REACH
[2020-01-19 22:13] LABS: ALANINE AMINOTRANSFERASE 48 U/L (12-78); ALKALINE PHOSPHATASE 60 U/L (45-117); BILIRUBIN,TOTAL 0.5 mg/dL (0.2-1.0); CREATININE 0.55 mg/dL (0.7-1.3); TOTAL PROTEIN 6.6 g/dL (6.4-8.2); TROPONIN I < 0.015 ng/mL (0.000-0.045)
[2020-01-19 22:38] LABS: BASOPHILS % (AUTO) 0 % (0-1); EOSINOPHILS # (AUTO) 0.01 x10^3/uL (0-0.4); EOSINOPHILS % (AUTO) 0 % (1-7); LYMPHOCYTES # (AUTO) 0.37 x10^3/uL (1-3.4); LYMPHOCYTES % (AUTO) 5 % (22-44); MD SCAN; MEAN CORPUSCULAR HEMOGLOBIN 32.5 pg (27.5-34.5); MEAN CORPUSCULAR HGB CONC 33.3 g/dL (33.2-36.2); MEAN CORPUSCULAR VOLUME 97.3 fL (81-97); MEAN PLATELET VOLUME 7.5 fL (7.4-10.4); MONOCYTES # (AUTO) 0.04 x10^3/uL (0.2-0.8); MONOCYTES % (AUTO) 1 % (2-9); NEUTROPHILS # (AUTO) 7.79 x10^3/uL (1.8-6.8); NEUTROPHILS % (AUTO) 95 % (42-75); PLATELET COUNT 266 x10^3/uL (130-400); RED BLOOD COUNT 3.92 x10^6/uL (4.38-5.82); RED CELL DISTRIBUTION WIDTH 15.8 % (9.4-14.8)
[2020-01-19 22:40] VITALS: BP 103/69
--- NOTE | 2020-01-19 22:40 | NUR ---
PT RESTING. PT PLACED ON O2 WHILE SLEEPING. VSS. CALL LIGHT IN REACH
--- NOTE | 2020-01-19 23:03 | NUR ---
Patient given discharge instructions and they have confirmed that they understand the instructions. Patient ambulatory with steady gait.
== END 2020-01-19 23:11 | disposition home or self-care (01) ==
LOC: ED 21:26
DX: J44.1 Chronic obstructive pulmonary disease with (acute) exacerbation (principal); F10.120 Alcohol abuse with intoxication, uncomplicated; I10 Essential (primary) hypertension; F17.200 Nicotine dependence, unspecified, uncomplicated; Y90.0 Blood alcohol level of less than 20 mg/100 ml
CPT/HCPCS: 36415; 71045; 80053; 80307; 83880; 84484; 85025; 93005; 99285; J2930; J7030

== ENCOUNTER 2020-02-06 13:04 | Inpatient (IN) | payer MEDICAID ==
[~2020-02-06] VITALS: Ht 190.5 cm; Wt 73.6 kg
[2020-02-06] MEDS ORDERED: ALBUTEROL/IPRATROPIUM 2.5MG/0.5MG, 3 ML ONE (13:14)
--- NOTE | 2020-02-06 13:16 | NUR ---
PT BROUGHT IN BY REM FROM [facility] FOR CHIEF COMPLAINT OF SOB WHICH STARTED THIS AM, PT STATES HE IS OUT OF INHALER. INORGANIC CHEMICAL TECHNICIAN EMS ADMINISTERED DUONED AND ALBUTEROL TREATMENT. Addendum: 02/06/20 at 1319 by [email or web address] PT BROUGHT IN BY [facility] FROM [facility] [facility] FOR CHIEF COMPLAINT OF SOB WHICH STARTED THIS AM, PT STATES HE IS OUT OF INHALER. INORGANIC CHEMICAL TECHNICIAN EMS ADMINISTERED DUONED AND ALBUTEROL TREATMENT. THE PT IS ALERT, ORIENTED, WARM AND DRY, ABLE TO COMPLETE SHORT SENTANCES, HOWEVER RETRACTIONS NOTED. ANTON LOPES AT BEDSIDE FOR EVALUATION
[2020-02-06] MEDS ORDERED: methylPREDNISolone SOD SUCC 125 MG/2 ML ONE (13:23)
[2020-02-06] MEDS ORDERED: SODIUM CHLORIDE FLUSH 10ML SYR IVF ONE (13:30)
[2020-02-06] MEDS ORDERED: methylPREDNISolone SOD SUCC 125 MG/2 ML IV ONE (13:30)
[2020-02-06] MEDS ORDERED: ALBUTEROL/IPRATROPIUM 2.5MG/0.5MG, 3 ML NPPB SCH (13:30)
--- NOTE | 2020-02-06 13:36 | NUR ---
ONE DUO NEB GIVEN FOLLOWING DROPLE PRECAUTIONS AND AEROSAL. STAFF ASKED TO LEAVE ROOM AND PAPRS ON DURING ADMINISTRATION.
[2020-02-06 13:48] LABS: MEAN CORPUSCULAR HEMOGLOBIN 31.8 pg (27.5-34.5); MEAN CORPUSCULAR HGB CONC 32.4 g/dL (33.2-36.2); MEAN CORPUSCULAR VOLUME 98.2 fL (81-97); MEAN PLATELET VOLUME 6.9 fL (7.4-10.4); PLATELET COUNT 426 x10^3/uL (130-400); RED BLOOD COUNT 3.81 x10^6/uL (4.38-5.82); RED CELL DISTRIBUTION WIDTH 16.8 % (9.4-14.8)
[2020-02-06 13:58] LABS: ALBUMIN 3.1 g/dL (3.4-5.0); ANION GAP 11 mmol/L (5-15); CALCIUM 8.6 mg/dL (8.5-10.1); CHLORIDE 100 mmol/L (98-107)
[2020-02-06 14:04] LABS: CREATININE 0.66 mg/dL (0.7-1.3); TROPONIN I < 0.015 ng/mL (0.000-0.045)
[2020-02-06 14:08] LABS: MD YES
[2020-02-06 14:10] LABS: LYMPH#(MANUAL) 2.34 x10^3/uL (1-3.4); LYMPHS% (MANUAL) 12 % (22-44); MONOS#(MANUAL) 0.39 x10^3/uL (0.3-2.7); MONOS% (MANUAL) 2 % (2-9); SEG#(MANUAL) 16.77 x10^3/uL (1.8-6.8); SEGS% (MANUAL) 86 % (42-75)
[2020-02-06 14:11] LABS: <PLATELET ESTIMATE> INCREASED; <PLT MORPHOLOGY> NORMAL PLT MORPH; ANISOCYTOSIS 1+
--- NOTE | 2020-02-06 14:39 | NUR ---
Pt resting in bed. call light in reach.
[2020-02-06] MEDS ORDERED: CEFTRIAXONE PMX 1GM/50ML 50 ML ONE (15:19)
--- NOTE | 2020-02-06 15:19 | NUR ---
TASK RN: HOSPITALIST AT BEDSIDE TO EVAL PT
--- NOTE | 2020-02-06 15:26 | NUR ---
bLOOD CULTURES DRAWN, PT MEDICATED PER EMAR. PT GIVEN URINAL.
[2020-02-06] MEDS ORDERED: AZITHROMYCIN 500 MG in SODIUM CHLORIDE 0.9% 250 ML IVPB ONE (15:30)
[2020-02-06] MEDS ORDERED: SODIUM CHLORIDE FLUSH 10ML SYR IVF PRN (15:30)
[2020-02-06] MEDS ORDERED: CEFTRIAXONE PMX 1GM/50ML 50 ML IVPB ONE (15:30)
[2020-02-06] MEDS ORDERED: ENOXAPARIN 40 MG/0.4 ML ONE (15:42)
[2020-02-06] MEDS: ENOXAPARIN 40 MG/0.4 ML SQ SCH (15:58)
[2020-02-06] MEDS ORDERED: ACETAMINOPHEN 325 MG TABLET PO PRN (16:00)
[2020-02-06] MEDS ORDERED: morphine SULFATE 10 MG/ML, 1ML IVPush PRN (16:00)
[2020-02-06] MEDS ORDERED: ONDANSETRON 2MG/ML, 2ML IVPush PRN (16:00)
[2020-02-06] MEDS ORDERED: ONDANSETRON ODT 4 MG PO PRN (16:00)
[2020-02-06] MEDS ORDERED: BACLOFEN 10 MG TABLET PO PRN (16:00)
--- NOTE | 2020-02-06 16:00 | NUR ---
[facility] at bedside for evaluation.
--- NOTE | 2020-02-06 17:02 | NUR ---
Ultrasound at bedside.
--- NOTE | 2020-02-06 17:13 | NUR ---
US completed. Pt denies needs at this time. NAD noted.
--- NOTE | 2020-02-06 17:36 | NUR ---
Report called to elia everett.
--- NOTE | 2020-02-06 17:41 | NUR ---
Per JEREMY Reid, pt to go to imaging prior to transfer. Tech taking pt at this time.
[2020-02-06 18:34] VITALS: BP 151/85
[2020-02-06 18:44] VITALS: BP 143/80
[2020-02-06] MEDS: methylPREDNISolone SOD SUCC 40 MG/ML IV SCH (21:08)
[2020-02-06] MEDS: NICOTINE 14MG/24 HR PATCH.TD24 TD SCH (21:09)
[2020-02-07 00:45] VITALS: BP 149/92
[2020-02-07] MEDS: methylPREDNISolone SOD SUCC 40 MG/ML IV SCH ×3 (05:02→20:39)
[2020-02-07 05:10] LABS: BASOPHILS % (AUTO) 0 % (0-1); EOSINOPHILS % (AUTO) 0 % (1-7); LYMPHOCYTES # (AUTO) 0.69 x10^3/uL (1-3.4); LYMPHOCYTES % (AUTO) 8 % (22-44); MD NO; MEAN CORPUSCULAR HEMOGLOBIN 31.9 pg (27.5-34.5); MEAN CORPUSCULAR HGB CONC 32.8 g/dL (33.2-36.2); MEAN CORPUSCULAR VOLUME 97.2 fL (81-97); MEAN PLATELET VOLUME 7.6 fL (7.4-10.4); MONOCYTES # (AUTO) 0.19 x10^3/uL (0.2-0.8); MONOCYTES % (AUTO) 2 % (2-9); NEUTROPHILS # (AUTO) 7.51 x10^3/uL (1.8-6.8); NEUTROPHILS % (AUTO) 89 % (42-75); PLATELET COUNT 316 x10^3/uL (130-400); RED BLOOD COUNT 3.39 x10^6/uL (4.38-5.82); RED CELL DISTRIBUTION WIDTH 16.6 % (9.4-14.8)
[2020-02-07 05:18] LABS: ANION GAP 6 mmol/L (5-15); CALCIUM 8.5 mg/dL (8.5-10.1); CHLORIDE 102 mmol/L (98-107); CREATININE 0.64 mg/dL (0.7-1.3)
[2020-02-07] MEDS ORDERED: ALBUTEROL-IPRATROPIUM MDI INH INH PRN (05:30)
[2020-02-07 06:25] VITALS: BP 181/115
[2020-02-07 07:00] VITALS: BP 181/115
[2020-02-07] MEDS: hydrALAzine 20 MG/ML, 1ML IVPush PRN ×2 (09:07→21:17)
[2020-02-07 13:22] VITALS: BP 147/72
[2020-02-07] MEDS: AZITHROMYCIN 500 MG in SODIUM CHLORIDE 0.9% 250 ML IV SCH (14:21)
[2020-02-07] MEDS: ALBUTEROL HFA 90 MCG/SPRAY INH PRN ×2 (14:21→21:37)
[2020-02-07] MEDS: ENOXAPARIN 40 MG/0.4 ML SQ SCH (18:29)
[2020-02-07] MEDS: CEFTRIAXONE PMX 1GM/50ML 50 ML IV SCH (18:30)
[2020-02-07] MEDS: NICOTINE 14MG/24 HR PATCH.TD24 TD SCH (20:39)
[2020-02-07 20:54] VITALS: BP 186/110
[2020-02-08 00:38] VITALS: BP 135/75
[2020-02-08] MEDS: methylPREDNISolone SOD SUCC 40 MG/ML IV SCH ×3 (05:55→20:19)
[2020-02-08 06:04] LABS: ANION GAP 5 mmol/L (5-15); CHLORIDE 100 mmol/L (98-107); CREATININE 0.58 mg/dL (0.7-1.3)
[2020-02-08 06:12] LABS: BASOPHILS # (AUTO) 0.01 x10^3/uL (0-0.1); BASOPHILS % (AUTO) 0 % (0-1); EOSINOPHILS % (AUTO) 0 % (1-7); LYMPHOCYTES # (AUTO) 0.62 x10^3/uL (1-3.4); LYMPHOCYTES % (AUTO) 5 % (22-44); MD NO; MEAN CORPUSCULAR HEMOGLOBIN 32.1 pg (27.5-34.5); MEAN CORPUSCULAR HGB CONC 33.2 g/dL (33.2-36.2); MEAN CORPUSCULAR VOLUME 96.8 fL (81-97); MEAN PLATELET VOLUME 7.8 fL (7.4-10.4); MONOCYTES % (AUTO) 4 % (2-9); NEUTROPHILS # (AUTO) 10.53 x10^3/uL (1.8-6.8); NEUTROPHILS % (AUTO) 90 % (42-75); PLATELET COUNT 301 x10^3/uL (130-400); RED BLOOD COUNT 3.48 x10^6/uL (4.38-5.82); RED CELL DISTRIBUTION WIDTH 16.4 % (9.4-14.8)
[2020-02-08 09:00] VITALS: BP 179/115
[2020-02-08] MEDS: hydrALAzine 20 MG/ML, 1ML IVPush PRN (10:00)
[2020-02-08 10:30] VITALS: BP 145/96
[2020-02-08 12:37] VITALS: BP 150/93
[2020-02-08] MEDS: AZITHROMYCIN 500 MG in SODIUM CHLORIDE 0.9% 250 ML IV SCH (14:59)
[2020-02-08] MEDS: ENOXAPARIN 40 MG/0.4 ML SQ SCH (17:38)
[2020-02-08] MEDS: CEFTRIAXONE PMX 1GM/50ML 50 ML IV SCH (17:38)
[2020-02-08 19:32] VITALS: BP 168/119
[2020-02-08] MEDS: NICOTINE 14MG/24 HR PATCH.TD24 TD SCH (20:19)
[2020-02-09 01:32] VITALS: BP 138/96
[2020-02-09 06:05] LABS: MEAN CORPUSCULAR HEMOGLOBIN 32.5 pg (27.5-34.5); MEAN CORPUSCULAR HGB CONC 33.8 g/dL (33.2-36.2); MEAN CORPUSCULAR VOLUME 96.1 fL (81-97); MEAN PLATELET VOLUME 8.2 fL (7.4-10.4); PLATELET COUNT 267 x10^3/uL (130-400); RED BLOOD COUNT 3.62 x10^6/uL (4.38-5.82); RED CELL DISTRIBUTION WIDTH 16.2 % (9.4-14.8)
[2020-02-09] MEDS: methylPREDNISolone SOD SUCC 40 MG/ML IV SCH ×3 (06:05→21:39)
[2020-02-09 06:38] LABS: BASOPHILS # (AUTO) 0.01 x10^3/uL (0-0.1); BASOPHILS % (AUTO) 0 % (0-1); EOSINOPHILS % (AUTO) 1 % (1-7); LYMPHOCYTES # (AUTO) 0.74 x10^3/uL (1-3.4); LYMPHOCYTES % (AUTO) 5 % (22-44); MD SCAN; MONOCYTES % (AUTO) 4 % (2-9); NEUTROPHILS # (AUTO) 14.27 x10^3/uL (1.8-6.8); NEUTROPHILS % (AUTO) 91 % (42-75)
[2020-02-09 06:47] VITALS: BP 160/104
[2020-02-09 13:16] VITALS: BP 172/117
[2020-02-09] MEDS: hydrALAzine 20 MG/ML, 1ML IVPush PRN (13:39)
[2020-02-09 14:00] VITALS: BP 152/68
[2020-02-09] MEDS: AZITHROMYCIN 500 MG in SODIUM CHLORIDE 0.9% 250 ML IV SCH (15:03)
[2020-02-09] MEDS: CEFTRIAXONE PMX 1GM/50ML 50 ML IV SCH (16:57)
[2020-02-09] MEDS: ENOXAPARIN 40 MG/0.4 ML SQ SCH (16:57)
[2020-02-09 19:46] VITALS: BP 148/100
[2020-02-09] MEDS: NICOTINE 14MG/24 HR PATCH.TD24 TD SCH (21:39)
[2020-02-10 01:34] VITALS: BP 169/111
[2020-02-10] MEDS: hydrALAzine 20 MG/ML, 1ML IVPush PRN ×2 (02:41→14:30)
[2020-02-10] MEDS: methylPREDNISolone SOD SUCC 40 MG/ML IV SCH ×2 (05:33→14:30)
[2020-02-10 06:04] LABS: MEAN CORPUSCULAR HEMOGLOBIN 31.9 pg (27.5-34.5); MEAN CORPUSCULAR HGB CONC 32.8 g/dL (33.2-36.2); MEAN CORPUSCULAR VOLUME 97.3 fL (81-97); MEAN PLATELET VOLUME 8.2 fL (7.4-10.4); PLATELET COUNT 251 x10^3/uL (130-400); RED BLOOD COUNT 3.92 x10^6/uL (4.38-5.82); RED CELL DISTRIBUTION WIDTH 16.2 % (9.4-14.8)
[2020-02-10 06:12] LABS: ANION GAP 6 mmol/L (5-15); CALCIUM 9.6 mg/dL (8.5-10.1); CHLORIDE 99 mmol/L (98-107); CREATININE 0.57 mg/dL (0.7-1.3)
[2020-02-10 06:51] LABS: MD YES
[2020-02-10 06:54] LABS: BAND#(MANUAL) 0.36 x10^3/uL; BANDS%(MANUAL) 2 % (0-7); LYMPH#(MANUAL) 1.44 x10^3/uL (1-3.4); LYMPHS% (MANUAL) 8 % (22-44); METAMYELOCYTES# (MANUAL) 0.18 x10^3/uL (0-0); METAMYELOCYTES% (MANUAL) 1 % (0-1); MONOS#(MANUAL) 0.72 x10^3/uL (0.3-2.7); MONOS% (MANUAL) 4 % (2-9); NRBC % (MANUAL) 1 % (0-1); SEGS% (MANUAL) 85 % (42-75)
[2020-02-10 06:55] LABS: POLYCHROMASIA 1+
[2020-02-10 06:56] LABS: ANISOCYTOSIS 1+
[2020-02-10 06:57] LABS: <PLATELET ESTIMATE> ADEQUATE; <PLT MORPHOLOGY> NORMAL PLT MORPH
[2020-02-10 07:12] LABS: OVALOCYTES 1+
[2020-02-10 07:58] VITALS: BP 166/102
[2020-02-10 08:15] VITALS: BP 160/94
[2020-02-10 13:36] VITALS: BP 155/101
[2020-02-10] MEDS: AZITHROMYCIN 500 MG in SODIUM CHLORIDE 0.9% 250 ML IV SCH (14:30)
[2020-02-10] MEDS ORDERED: ALBU8.5H8 INH (17:16)
[2020-02-10] MEDS ORDERED: PRED20TA PO (17:16)
[2020-02-10] MEDS ORDERED: LISI40TA PO (17:16)
[2020-02-10] MEDS: ENOXAPARIN 40 MG/0.4 ML SQ SCH (17:27)
[2020-02-10] MEDS: CEFTRIAXONE PMX 1GM/50ML 50 ML IV SCH (17:27)
[2020-02-10 18:50] VITALS: BP 160/92
== END 2020-02-10 19:00 | disposition home or self-care (01) | DRG 871 ==
LOC: ED 13:18 → SUATTDRO 15:07 → EDIP 15:09 → 3WST 18:13 → 3E 02-07 22:15
PROVIDERS: ADMIT Hospitalist; ATTEND Family Medicine
DX: A41.9 Sepsis, unspecified organism (principal); J96.01 Acute respiratory failure with hypoxia; L03.114 Cellulitis of left upper limb; L03.113 Cellulitis of right upper limb; J44.1 Chronic obstructive pulmonary disease with (acute) exacerbation; D53.9 Nutritional anemia, unspecified; E78.5 Hyperlipidemia, unspecified; F10.10 Alcohol abuse, uncomplicated; F17.200 Nicotine dependence, unspecified, uncomplicated; I10 Essential (primary) hypertension; G62.9 Polyneuropathy, unspecified; M51.26 Other intervertebral disc displacement, lumbar region; Z20.828 Contact with and (suspected) exposure to other viral communicable diseases; Y92.89 Other specified places as the place of occurrence of the external cause; T38.0X5A Adverse effect of glucocorticoids and synthetic analogues, initial encounter; Z59.0 Homelessness; Z79.52 Long term (current) use of systemic steroids; Z87.11 Personal history of peptic ulcer disease; Z91.14 Patient's other noncompliance with medication regimen; Z91.19 Patient's noncompliance with other medical treatment and regimen; Z91.013 Allergy to seafood; Z91.018 Allergy to other foods; Y90.9 Presence of alcohol in blood, level not specified; Z79.899 Other long term (current) drug therapy; Z90.49 Acquired absence of other specified parts of digestive tract; Z71.6 Tobacco abuse counseling; B95.62 Methicillin resistant Staphylococcus aureus infection as the cause of diseases classified elsewhere
CPT/HCPCS: 36415; 71045; 71275; 80048; 82040; 83605; 83880; 84484; 85025; 85379; 87040; 93005; 93970; 96365; 96368; G0378; J0456; J0696; J1650; J0360; J2920; J2930; J7050

== ENCOUNTER 2020-02-23 22:37 | Inpatient (IN) | payer MEDICAID ==
[~2020-02-23] VITALS: Ht 190.5 cm; Wt 74.9 kg
[2020-02-23] MEDS ORDERED: methylPREDNISolone SOD SUCC 125 MG/2 ML ONE (22:53)
[2020-02-23] MEDS ORDERED: ALBUTEROL/IPRATROPIUM 2.5MG/0.5MG, 3 ML ONE (22:53)
[2020-02-23] MEDS ORDERED: ALBUTEROL/IPRATROPIUM 2.5MG/0.5MG, 3 ML NPPB SCH (23:00)
[2020-02-23] MEDS ORDERED: SODIUM CHLORIDE 0.9% 1,000ML IVBOLUS ONE (23:00)
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
[2020-02-23 23:24] LABS: BASOPHILS # (AUTO) 0.06 x10^3/uL (0-0.1); BASOPHILS % (AUTO) 0 % (0-1); EOSINOPHILS # (AUTO) 0.18 x10^3/uL (0-0.4); EOSINOPHILS % (AUTO) 1 % (1-7); LYMPHOCYTES # (AUTO) 1.86 x10^3/uL (1-3.4); LYMPHOCYTES % (AUTO) 14 % (22-44); MD NO; MEAN CORPUSCULAR HEMOGLOBIN 31.3 pg (27.5-34.5); MEAN CORPUSCULAR HGB CONC 32.3 g/dL (33.2-36.2); MEAN CORPUSCULAR VOLUME 96.8 fL (81-97); MEAN PLATELET VOLUME 7.8 fL (7.4-10.4); MONOCYTES # (AUTO) 1.27 x10^3/uL (0.2-0.8); MONOCYTES % (AUTO) 9 % (2-9); NEUTROPHILS # (AUTO) 10.33 x10^3/uL (1.8-6.8); NEUTROPHILS % (AUTO) 75 % (42-75); PLATELET COUNT 293 x10^3/uL (130-400); RED BLOOD COUNT 3.75 x10^6/uL (4.38-5.82); RED CELL DISTRIBUTION WIDTH 16.3 % (9.4-14.8)
[2020-02-23 23:26] LABS: CHLORIDE 94 mmol/L (98-107)
[2020-02-23 23:33] LABS: ANION GAP 13 mmol/L (5-15); CREATININE 1.17 mg/dL (0.7-1.3)
[2020-02-23 23:41] LABS: FIO2 RA %
[2020-02-23 23:51] LABS: TROPONIN I < 0.015 ng/mL (0.000-0.045)
[2020-02-24] MEDS ORDERED: CEFEPIME 1 GM in DEXTROSE 5% 50 ML IV ONE
[2020-02-24] MEDS ORDERED: SODIUM CHLORIDE 0.9% 1,000ML IVBOLUS ONE
--- NOTE | 2020-02-24 00:23 | NUR ---
Pt report from Win everett. This rn to assume care of pt. Cefepime broke in tube from rx. Infusing vanco first.
[2020-02-24] MEDS ORDERED: VANCOMYCIN 2,000 MG in SODIUM CHLORIDE 0.9% 500 ML IV ONE (00:30)
--- NOTE | 2020-02-24 02:07 | NUR ---
Pt report to Haider everett.
[2020-02-24] MEDS ORDERED: ONDANSETRON 2MG/ML, 2ML IVPush PRN (02:30)
[2020-02-24] MEDS ORDERED: ACETAMINOPHEN 325 MG TABLET PO PRN (02:30)
[2020-02-24] MEDS ORDERED: morphine SULFATE 10 MG/ML, 1ML IVPush PRN (02:30)
[2020-02-24] MEDS ORDERED: ENOXAPARIN 40 MG/0.4 ML ONE (02:30)
[2020-02-24] MEDS ORDERED: THIAMINE 200 MG in SODIUM CHLORIDE 0.9% 50 ML IV ONE (02:30)
[2020-02-24] MEDS ORDERED: hydrALAzine 20 MG/ML, 1ML IVPush PRN (02:30)
[2020-02-24] MEDS ORDERED: LORazepam 2 MG/ML, 1ML IVPush PRN (02:30)
[2020-02-24] MEDS ORDERED: VANCOMYCIN PER PHARMACY MC PRN ×2 (02:30)
--- NOTE | 2020-02-24 02:32 | NUR ---
MED REQ TUBED TO PHARM
[2020-02-24] MEDS ORDERED: CIPROFLOXACIN/PMX 400MG/200ML 200 ML ONE (02:33)
[2020-02-24] MEDS: ENOXAPARIN 40 MG/0.4 ML SQ SCH (02:43)
[2020-02-24] MEDS: PIPERACILLIN/TAZO/PMX 4.5GM 100 ML IVPB SCH ×4 (02:49→23:11)
--- NOTE | 2020-02-24 02:51 | NUR ---
PT DECLINING BREATHING TX AT THIS TIME HE WOULD LIKE TO SLEEP INSTEAD.
[2020-02-24] MEDS: SODIUM CHLORIDE 0.9% 1,000 ML IV SCH ×3 (03:50→22:37)
[2020-02-24] MEDS: CIPROFLOXACIN/PMX 400MG/200ML 200 ML IVPB SCH ×2 (03:50→14:24)
--- NOTE | 2020-02-24 03:56 | NUR ---
PT MEDICATED PER DEC. 900ML URINE OUT. PT DENIES FURTHER NEEDS AT THIS TIME.
--- NOTE | 2020-02-24 05:17 | NUR ---
PT MOVED TO HOSPITAL BED. PT ABLE TO TRANSFER SELF. POC DISCUSSED. PT DENIES FURTHER NEEDS AT THIS TIME.
[2020-02-24] MEDS: TEMPLATE NON-FORMULARY MED. (COMBIVENT RESPIMAT 2 PUFFS) INH SCH ×3 (07:00→15:00)
[2020-02-24] MEDS ORDERED: BREO ELLIPTA INH SCH (09:00)
--- NOTE | 2020-02-24 09:22 | NUR ---
PT RESTING IN [facility]. VSS. STATES "I AM DOING FINE, THANK YOU"
--- NOTE | 2020-02-24 10:04 | NUR ---
PT EATING BREAKFAST. NO NEEDS AT THIS TIME
[2020-02-24] MEDS ORDERED: PIPERACILLIN/TAZO/PMX 3.375GM 0 ML ONE (10:26)
--- NOTE | 2020-02-24 12:12 | NUR ---
Pt provided with meal tray. Pt verbalized no needs at this time.
--- NOTE | 2020-02-24 12:22 | NUR ---
BREAK RN NOTE: PT A&O, RESPS EVEN AND UNLABORED. PT ABLE TO SPEAK IN FULL SENTENCES WITHOUT DIFFICULTY. PT EATING LUNCH TRAY, DENIES ANY NEEDS AT THIS TIME. CALL LIGHT IN REACH, ALL MONITORS IN PLACE .
--- NOTE | 2020-02-24 13:07 | NUR ---
PT EDUCATED ON PLAN OF CARE
--- NOTE | 2020-02-24 14:28 | NUR ---
PT RESTING IN GURNEY. FINISHED WITH LUNCH. IV ABX INFUSING. PT REPORTS "I FEEL BETTER THAN I DID YESTERDAY BUT BREATHING IS STILL HARD WHEN I GET UP AND MOVE AROUND"
[2020-02-24 15:46] VITALS: BP 126/88
--- NOTE | 2020-02-24 16:18 | NUR ---
[facility] TECH TRANSPORTED THIS PT WITH MISTY LAGUNAS, AND MISTY SAUER.
[2020-02-24] MEDS ORDERED: ALBUTEROL HFA 90 MCG/SPRAY INH PRN (16:30)
[2020-02-24] MEDS ORDERED: PHARMACOKINETIC MONITORING MC PRN (16:30)
[2020-02-24] MEDS: VANCOMYCIN 1,500 MG in SODIUM CHLORIDE 0.9% 250 ML IV SCH (17:34)
[2020-02-24 19:53] VITALS: BP 130/88
[2020-02-24] MEDS: ALBUTEROL-IPRATROPIUM MDI INH INH SCH (20:00)
[2020-02-24 22:40] VITALS: BP 128/80
[2020-02-25 00:19] VITALS: BP 130/81
[2020-02-25] MEDS: ENOXAPARIN 40 MG/0.4 ML SQ SCH (02:30)
[2020-02-25] MEDS: CIPROFLOXACIN/PMX 400MG/200ML 200 ML IVPB SCH (02:49)
[2020-02-25] MEDS: VANCOMYCIN 1,500 MG in SODIUM CHLORIDE 0.9% 250 ML IV SCH (05:51)
[2020-02-25] MEDS: PIPERACILLIN/TAZO/PMX 4.5GM 100 ML IVPB SCH ×4 (05:52→23:14)
[2020-02-25 06:24] LABS: BASOPHILS # (AUTO) 0.04 x10^3/uL (0-0.1); BASOPHILS % (AUTO) 1 % (0-1); EOSINOPHILS # (AUTO) 0.07 x10^3/uL (0-0.4); EOSINOPHILS % (AUTO) 1 % (1-7); LYMPHOCYTES # (AUTO) 1.04 x10^3/uL (1-3.4); LYMPHOCYTES % (AUTO) 13 % (22-44); MD NO; MEAN CORPUSCULAR HEMOGLOBIN 31.5 pg (27.5-34.5); MEAN CORPUSCULAR HGB CONC 32.6 g/dL (33.2-36.2); MEAN CORPUSCULAR VOLUME 96.8 fL (81-97); MEAN PLATELET VOLUME 7.6 fL (7.4-10.4); MONOCYTES # (AUTO) 0.64 x10^3/uL (0.2-0.8); MONOCYTES % (AUTO) 8 % (2-9); NEUTROPHILS # (AUTO) 5.97 x10^3/uL (1.8-6.8); NEUTROPHILS % (AUTO) 77 % (42-75); PLATELET COUNT 257 x10^3/uL (130-400); RED CELL DISTRIBUTION WIDTH 16.5 % (9.4-14.8)
[2020-02-25 06:29] LABS: ANION GAP 6 mmol/L (5-15); CALCIUM 8.8 mg/dL (8.5-10.1); CHLORIDE 107 mmol/L (98-107); CREATININE 0.74 mg/dL (0.7-1.3)
[2020-02-25 06:51] VITALS: BP 155/84
[2020-02-25] MEDS: ALBUTEROL-IPRATROPIUM MDI INH INH SCH ×2 (07:00→10:38)
[2020-02-25] MEDS: FLUTICASONE/VILANTEROL 200-25MCG/INH INH SCH (08:29)
[2020-02-25] MEDS ORDERED: ALBU6.7H8 INH (08:45)
[2020-02-25] MEDS ORDERED: IPRA4AER INH (08:47)
[2020-02-25] MEDS ORDERED: FLUT12AE INH (08:47)
[2020-02-25] MEDS ORDERED: ALBUTEROL SULFATE HOMEINH PRN (09:00)
[2020-02-25] MEDS: SODIUM CHLORIDE 0.9% 1,000 ML IV SCH (11:33)
[2020-02-25 13:34] VITALS: BP 130/82
[2020-02-25 18:39] VITALS: BP 129/86
[2020-02-25] MEDS: FLOVENT HOMEINH SCH (20:15)
[2020-02-26] MEDS ORDERED: VANCOMYCIN 1,500 MG in SODIUM CHLORIDE 0.9% 250 ML IV SCH
[2020-02-26 01:21] VITALS: BP 154/95
[2020-02-26] MEDS: ENOXAPARIN 40 MG/0.4 ML SQ SCH (02:03)
[2020-02-26] MEDS: PIPERACILLIN/TAZO/PMX 4.5GM 100 ML IVPB SCH (04:51)
[2020-02-26 06:18] LABS: MEAN CORPUSCULAR HEMOGLOBIN 31.4 pg (27.5-34.5); MEAN CORPUSCULAR HGB CONC 32.8 g/dL (33.2-36.2); MEAN CORPUSCULAR VOLUME 95.8 fL (81-97); MEAN PLATELET VOLUME 8.2 fL (7.4-10.4); PLATELET COUNT 226 x10^3/uL (130-400); RED BLOOD COUNT 3.17 x10^6/uL (4.38-5.82); RED CELL DISTRIBUTION WIDTH 16.4 % (9.4-14.8)
[2020-02-26 06:28] LABS: ANION GAP 6 mmol/L (5-15); CALCIUM 8.7 mg/dL (8.5-10.1); CHLORIDE 102 mmol/L (98-107)
[2020-02-26 06:31] LABS: CREATININE 0.47 mg/dL (0.7-1.3)
[2020-02-26 06:42] LABS: BASOPHILS # (AUTO) 0.18 x10^3/uL (0-0.1); BASOPHILS % (AUTO) 2 % (0-1); EOSINOPHILS # (AUTO) 0.29 x10^3/uL (0-0.4); EOSINOPHILS % (AUTO) 3 % (1-7); LYMPHOCYTES # (AUTO) 1.43 x10^3/uL (1-3.4); LYMPHOCYTES % (AUTO) 16 % (22-44); MD SCAN; MONOCYTES # (AUTO) 0.82 x10^3/uL (0.2-0.8); MONOCYTES % (AUTO) 9 % (2-9); NEUTROPHILS # (AUTO) 6.32 x10^3/uL (1.8-6.8); NEUTROPHILS % (AUTO) 70 % (42-75)
[2020-02-26 06:44] VITALS: BP 117/89
[2020-02-26] MEDS: FLOVENT HOMEINH SCH ×2 (08:44→20:14)
[2020-02-26] MEDS: FLUTICASONE/VILANTEROL 200-25MCG/INH INH SCH (08:44)
[2020-02-26] MEDS: BUDESONIDE 0.5 MG/2 ML INHA INH SCH ×2 (08:44→22:20)
[2020-02-26] MEDS ORDERED: ALBUTEROL SULFATE 2.5MG/0.5ML NPPB PRN (09:00)
[2020-02-26 11:44] VITALS: BP 130/89
[2020-02-26 14:00] VITALS: BP 130/89
[2020-02-26 19:30] VITALS: BP 131/80
[2020-02-27 00:29] VITALS: BP 151/104
[2020-02-27] MEDS: ENOXAPARIN 40 MG/0.4 ML SQ SCH (02:30)
[2020-02-27 04:57] LABS: BASOPHILS % (AUTO) 0 % (0-1); EOSINOPHILS % (AUTO) 4 % (1-7); LYMPHOCYTES # (AUTO) 1.52 x10^3/uL (1-3.4); LYMPHOCYTES % (AUTO) 18 % (22-44); MD NO; MEAN CORPUSCULAR HEMOGLOBIN 31.4 pg (27.5-34.5); MEAN CORPUSCULAR HGB CONC 32.8 g/dL (33.2-36.2); MEAN CORPUSCULAR VOLUME 95.7 fL (81-97); MEAN PLATELET VOLUME 7.8 fL (7.4-10.4); MONOCYTES # (AUTO) 0.87 x10^3/uL (0.2-0.8); MONOCYTES % (AUTO) 10 % (2-9); NEUTROPHILS # (AUTO) 5.89 x10^3/uL (1.8-6.8); NEUTROPHILS % (AUTO) 69 % (42-75); PLATELET COUNT 297 x10^3/uL (130-400); RED CELL DISTRIBUTION WIDTH 16.3 % (9.4-14.8)
[2020-02-27 04:58] LABS: ANION GAP 6 mmol/L (5-15); CHLORIDE 101 mmol/L (98-107); CREATININE 0.48 mg/dL (0.7-1.3)
[2020-02-27 06:56] VITALS: BP 137/95
[2020-02-27] MEDS: FLUTICASONE/VILANTEROL 200-25MCG/INH INH SCH (07:38)
[2020-02-27] MEDS: FLOVENT HOMEINH SCH (07:38)
[2020-02-27] MEDS ORDERED: IPRA4AER INH (10:19)
[2020-02-27] MEDS ORDERED: FLUT1AER INH (10:19)
== END 2020-02-27 11:57 | disposition home or self-care (01) | DRG 871 ==
LOC: ED 23:22 → EDIP 02-24 01:40 → 4NW 02-24 15:45 → 4WST 02-24 22:30
PROVIDERS: ADMIT Family Medicine; ATTEND Family Medicine
DX: A41.9 Sepsis, unspecified organism (principal); J18.9 Pneumonia, unspecified organism; J96.01 Acute respiratory failure with hypoxia; E87.1 Hypo-osmolality and hyponatremia; J44.0 Chronic obstructive pulmonary disease with (acute) lower respiratory infection; J44.1 Chronic obstructive pulmonary disease with (acute) exacerbation; D64.9 Anemia, unspecified; E86.0 Dehydration; E86.1 Hypovolemia; F10.10 Alcohol abuse, uncomplicated; Y90.9 Presence of alcohol in blood, level not specified; F17.200 Nicotine dependence, unspecified, uncomplicated; I10 Essential (primary) hypertension; K27.9 Peptic ulcer, site unspecified, unspecified as acute or chronic, without hemorrhage or perforation; R65.20 Severe sepsis without septic shock; S80.211A Abrasion, right knee, initial encounter; S80.212A Abrasion, left knee, initial encounter; Y95 Nosocomial condition; Z59.0 Homelessness; Z91.14 Patient's other noncompliance with medication regimen; W18.39XA Other fall on same level, initial encounter; Y93.89 Activity, other specified; Y92.89 Other specified places as the place of occurrence of the external cause; Y99.8 Other external cause status; Z20.828 Contact with and (suspected) exposure to other viral communicable diseases
CPT/HCPCS: 36415; 36600; 96360; 96361; 99285; J7626; 71045; 80048; 80202; 82040; 82803; 83605; 84484; 85025; 87040; 93005; G0378; J0692; J0744; J1650; J2543; J3370; J3411; J7030; J7040; J7050; J7512; U0001

== ENCOUNTER 2020-03-25 10:04 | Inpatient (IN) | payer MEDICAID ==
[~2020-03-25] VITALS: Ht 190.5 cm; Wt 77.5 kg
[~2020-03-25 10:04] MED LIST changes: +ALBU6.7H8 INH; +AZIT250T PO; +FLUT12AE INH; +IPRA4AER INH; +LISI10TA2 PO; +OMEP20TA9 PO; +TIOT4MIS2 INH
[2020-03-25] MEDS ORDERED: methylPREDNISolone SOD SUCC 125 MG/2 ML ONE (11:24)
[2020-03-25] MEDS ORDERED: ALBUTEROL/IPRATROPIUM 2.5MG/0.5MG, 3 ML NPPB ONE (11:30)
[2020-03-25] MEDS ORDERED: methylPREDNISolone SOD SUCC 125 MG/2 ML IV ONE (11:30)
[2020-03-25] MEDS ORDERED: ALBUTEROL/IPRATROPIUM 2.5MG/0.5MG, 3 ML ONE (11:35)
[2020-03-25 11:52] LABS: ALBUMIN 3.1 g/dL (3.4-5.0); ANION GAP 12 mmol/L (5-15); CALCIUM 8.7 mg/dL (8.5-10.1); CHLORIDE 102 mmol/L (98-107)
[2020-03-25 11:54] LABS: CREATININE 0.57 mg/dL (0.7-1.3)
[2020-03-25 12:04] LABS: MEAN CORPUSCULAR HEMOGLOBIN 32.2 pg (27.5-34.5); MEAN CORPUSCULAR HGB CONC 33.3 g/dL (33.2-36.2); MEAN CORPUSCULAR VOLUME 96.6 fL (81-97); MEAN PLATELET VOLUME 7.5 fL (7.4-10.4); PLATELET COUNT 191 x10^3/uL (130-400); RED BLOOD COUNT 3.26 x10^6/uL (4.38-5.82); RED CELL DISTRIBUTION WIDTH 18.2 % (9.4-14.8)
[2020-03-25 12:06] LABS: BASOPHILS % (AUTO) 1 % (0-1); EOSINOPHILS # (AUTO) 0.03 x10^3/uL (0-0.4); EOSINOPHILS % (AUTO) 0 % (1-7); LYMPHOCYTES # (AUTO) 1.46 x10^3/uL (1-3.4); LYMPHOCYTES % (AUTO) 14 % (22-44); MD SCAN; MONOCYTES # (AUTO) 1.31 x10^3/uL (0.2-0.8); MONOCYTES % (AUTO) 12 % (2-9); NEUTROPHILS # (AUTO) 7.89 x10^3/uL (1.8-6.8); NEUTROPHILS % (AUTO) 73 % (42-75)
--- NOTE | 2020-03-25 13:16 | NUR ---
PASSED ROAD TEST. PT O2 SAT AT 91% RA.
[2020-03-25] MEDS ORDERED: hydrALAzine 20 MG/ML, 1ML IVPush PRN (16:30)
[2020-03-25] MEDS ORDERED: ONDANSETRON ODT 4 MG PO PRN (16:30)
[2020-03-25] MEDS ORDERED: ACETAMINOPHEN 325 MG TABLET PO PRN (16:30)
[2020-03-25] MEDS ORDERED: LORazepam 1MG TABLET PO PRN ×2 (16:30→17:00)
[2020-03-25] MEDS ORDERED: ONDANSETRON 2MG/ML, 2ML IVPush PRN (16:30)
[2020-03-25] MEDS ORDERED: ENOXAPARIN 40 MG/0.4 ML ONE (16:40)
[2020-03-25] MEDS ORDERED: CEFTRIAXONE PMX 1GM/50ML 50 ML ONE (16:41)
[2020-03-25] MEDS ORDERED: NICOTINE 14MG/24 HR PATCH.TD24 ONE (16:41)
[2020-03-25] MEDS: NICOTINE 14MG/24 HR PATCH.TD24 TD SCH (16:47)
[2020-03-25] MEDS: ENOXAPARIN 40 MG/0.4 ML SQ SCH (16:48)
[2020-03-25] MEDS: SODIUM CHLORIDE 0.9% 1,000 ML IV SCH (16:49)
[2020-03-25] MEDS: CEFTRIAXONE PMX 1GM/50ML 50 ML IV SCH (16:49)
[2020-03-25] MEDS ORDERED: COMBIVENT HOMEINH PRN (17:00)
[2020-03-25] MEDS ORDERED: LORazepam 2 MG/ML, 1ML IV PRN ×4 (17:00)
--- NOTE | 2020-03-25 17:18 | NUR ---
PT RECEIVED MEAL TRAY
[2020-03-25] MEDS ORDERED: MAGNESIUM SULFATE PMX 2GM/50ML 50 ML IV ONE (19:00)
[2020-03-25] MEDS: LORazepam 0.5MG TABLET PO SCH ×2 (19:39→21:00)
[2020-03-25] MEDS: POTASSIUM CHLORIDE 20 MEQ TAB.ER.PRT PO SCH (19:39)
[2020-03-25] MEDS: methylPREDNISolone SOD SUCC 125 MG/2 ML IVPush SCH (19:39)
[2020-03-25] MEDS ORDERED: ALBUTEROL SULFATE 2.5 MG/3 ML NPPB PRN (20:00)
[2020-03-25] MEDS ORDERED: ALBUTEROL SULFATE 2.5 MG/3 ML NPPB SCH ×3 (20:00)
[2020-03-25 20:42] VITALS: BP 170/107
[2020-03-25] MEDS: BUDESONIDE 0.5 MG/2 ML INHA NPPB SCH (21:00)
[2020-03-25] MEDS: ALBUTEROL/IPRATROPIUM 2.5MG/0.5MG, 3 ML NPPB SCH (21:10)
[2020-03-26 01:11] VITALS: BP 153/94
[2020-03-26] MEDS: POTASSIUM CHLORIDE 20 MEQ TAB.ER.PRT PO SCH (01:46)
[2020-03-26] MEDS: methylPREDNISolone SOD SUCC 125 MG/2 ML IVPush SCH ×4 (01:46→20:45)
[2020-03-26 05:57] LABS: ALBUMIN 3.1 g/dL (3.4-5.0); ANION GAP 8 mmol/L (5-15); CALCIUM 8.4 mg/dL (8.5-10.1); CHLORIDE 101 mmol/L (98-107)
[2020-03-26 06:12] LABS: ALANINE AMINOTRANSFERASE 26 U/L (12-78); ALKALINE PHOSPHATASE 76 U/L (45-117); BILIRUBIN,TOTAL 0.4 mg/dL (0.2-1.0); CREATININE 0.53 mg/dL (0.7-1.3)
[2020-03-26 06:15] LABS: MICROSCOPIC NOT IND
[2020-03-26 06:17] LABS: BASOPHILS # (AUTO) 0.02 x10^3/uL (0-0.1); BASOPHILS % (AUTO) 1 % (0-1); EOSINOPHILS # (AUTO) 0.03 x10^3/uL (0-0.4); EOSINOPHILS % (AUTO) 1 % (1-7); LYMPHOCYTES # (AUTO) 0.39 x10^3/uL (1-3.4); LYMPHOCYTES % (AUTO) 10 % (22-44); MD NO; MEAN CORPUSCULAR HEMOGLOBIN 31.5 pg (27.5-34.5); MEAN CORPUSCULAR HGB CONC 32.5 g/dL (33.2-36.2); MONOCYTES # (AUTO) 0.11 x10^3/uL (0.2-0.8); MONOCYTES % (AUTO) 3 % (2-9); NEUTROPHILS # (AUTO) 3.59 x10^3/uL (1.8-6.8); NEUTROPHILS % (AUTO) 87 % (42-75); PLATELET COUNT 170 x10^3/uL (130-400); RED BLOOD COUNT 3.42 x10^6/uL (4.38-5.82)
[2020-03-26 07:40] VITALS: BP 187/111
[2020-03-26] MEDS: LORazepam 0.5MG TABLET PO SCH ×3 (08:32→21:00)
[2020-03-26] MEDS: PANTOPRAZOLE 40MG TABLET PO SCH (08:32)
[2020-03-26] MEDS: LISINOPRIL 40 MG TABLET PO SCH (08:32)
[2020-03-26] MEDS: FOLIC ACID 1 MG TABLET PO SCH (08:32)
[2020-03-26] MEDS: SENNA/DOCUSATE TABLET PO SCH (08:32)
[2020-03-26] MEDS: MULTIVITAMINS/MINERALS TABLET PO SCH (08:32)
[2020-03-26] MEDS: THIAMINE 100MG TABLET PO SCH (08:32)
[2020-03-26] MEDS: ALBUTEROL/IPRATROPIUM 2.5MG/0.5MG, 3 ML NPPB SCH ×4 (08:52→21:05)
[2020-03-26] MEDS: BUDESONIDE 0.5 MG/2 ML INHA NPPB SCH ×2 (08:52→21:05)
[2020-03-26] MEDS ORDERED: TEMPLATE NON-FORMULARY MED. (Fluticasone/Vilanterol (Breo Ellipta 100-25 Mcg Inh) 1 PUFF) INH SCH (09:00)
[2020-03-26 14:01] VITALS: BP 164/82
[2020-03-26] MEDS: CEFTRIAXONE PMX 1GM/50ML 50 ML IV SCH (17:39)
[2020-03-26] MEDS: ENOXAPARIN 40 MG/0.4 ML SQ SCH (17:39)
[2020-03-26] MEDS: NICOTINE 14MG/24 HR PATCH.TD24 TD SCH (17:40)
[2020-03-26] MEDS: SODIUM CHLORIDE 0.9% 1,000 ML IV SCH (17:41)
[2020-03-26] MEDS: INSULIN LISPRO 100 UNITS/ML, PEN SQ-INSULIN SCH ×2 (17:41→20:51)
[2020-03-26 19:37] VITALS: BP 158/89
[2020-03-27 00:35] VITALS: BP 169/94
[2020-03-27] MEDS: ALBUTEROL/IPRATROPIUM 2.5MG/0.5MG, 3 ML NPPB SCH ×5 (04:42→18:49)
[2020-03-27 05:02] LABS: ANION GAP 10 mmol/L (5-15); CALCIUM 8.5 mg/dL (8.5-10.1); CHLORIDE 101 mmol/L (98-107); CREATININE 0.82 mg/dL (0.7-1.3)
[2020-03-27] MEDS: BUDESONIDE 0.5 MG/2 ML INHA NPPB SCH ×2 (06:45→18:49)
[2020-03-27] MEDS: INSULIN LISPRO 100 UNITS/ML, PEN SQ-INSULIN SCH ×4 (06:59→20:19)
[2020-03-27 07:52] VITALS: BP 161/95
[2020-03-27] MEDS: FOLIC ACID 1 MG TABLET PO SCH (08:22)
[2020-03-27] MEDS: LORazepam 0.5MG TABLET PO SCH ×3 (08:22→21:00)
[2020-03-27] MEDS: MULTIVITAMINS/MINERALS TABLET PO SCH (08:22)
[2020-03-27] MEDS: THIAMINE 100MG TABLET PO SCH (08:22)
[2020-03-27] MEDS: SENNA/DOCUSATE TABLET PO SCH (08:22)
[2020-03-27] MEDS: LISINOPRIL 40 MG TABLET PO SCH (08:22)
[2020-03-27] MEDS: PANTOPRAZOLE 40MG TABLET PO SCH (08:22)
[2020-03-27] MEDS: methylPREDNISolone SOD SUCC 125 MG/2 ML IVPush SCH ×3 (08:23→20:08)
[2020-03-27] MEDS: SODIUM CHLORIDE 0.9% 1,000 ML IV SCH (11:43)
[2020-03-27 14:02] VITALS: BP 152/81
[2020-03-27] MEDS: CEFTRIAXONE PMX 1GM/50ML 50 ML IV SCH (15:41)
[2020-03-27] MEDS: ENOXAPARIN 40 MG/0.4 ML SQ SCH (15:42)
[2020-03-27] MEDS: NICOTINE 14MG/24 HR PATCH.TD24 TD SCH (15:42)
[2020-03-27 19:16] VITALS: BP 163/91
[2020-03-28] MEDS: methylPREDNISolone SOD SUCC 125 MG/2 ML IVPush SCH ×3 (02:16→20:26)
[2020-03-28 03:02] VITALS: BP 172/101
[2020-03-28 03:24] VITALS: BP 168/96
[2020-03-28] MEDS: SODIUM CHLORIDE 0.9% 1,000 ML IV SCH (04:20)
[2020-03-28] MEDS: ALBUTEROL/IPRATROPIUM 2.5MG/0.5MG, 3 ML NPPB SCH ×6 (04:30→22:04)
[2020-03-28 05:44] LABS: CHLORIDE 99 mmol/L (98-107)
[2020-03-28 05:50] LABS: ANION GAP 9 mmol/L (5-15); CREATININE 0.62 mg/dL (0.7-1.3)
[2020-03-28] MEDS: BUDESONIDE 0.5 MG/2 ML INHA NPPB SCH ×2 (06:50→19:14)
[2020-03-28] MEDS: INSULIN LISPRO 100 UNITS/ML, PEN SQ-INSULIN SCH ×4 (07:00→20:27)
[2020-03-28 07:07] VITALS: BP 155/94
[2020-03-28] MEDS: MULTIVITAMINS/MINERALS TABLET PO SCH (07:59)
[2020-03-28] MEDS: THIAMINE 100MG TABLET PO SCH (07:59)
[2020-03-28] MEDS: PANTOPRAZOLE 40MG TABLET PO SCH (07:59)
[2020-03-28] MEDS: FOLIC ACID 1 MG TABLET PO SCH (07:59)
[2020-03-28] MEDS: LISINOPRIL 40 MG TABLET PO SCH (07:59)
[2020-03-28] MEDS: SENNA/DOCUSATE TABLET PO SCH (08:00)
[2020-03-28] MEDS: LORazepam 0.5MG TABLET PO SCH ×3 (08:00→20:27)
[2020-03-28] MEDS: DILTIAZEM 30 MG TABLET PO SCH ×3 (11:00→20:26)
[2020-03-28] MEDS ORDERED: DILTIAZEM 60 MG TABLET ONE (11:44)
[2020-03-28 12:47] VITALS: BP 165/92
[2020-03-28] MEDS: NICOTINE 14MG/24 HR PATCH.TD24 TD SCH (16:17)
[2020-03-28] MEDS: CEFTRIAXONE PMX 1GM/50ML 50 ML IV SCH (16:17)
[2020-03-28] MEDS: ENOXAPARIN 40 MG/0.4 ML SQ SCH (16:17)
[2020-03-28 18:21] VITALS: BP 159/94
[2020-03-28] MEDS ORDERED: FLUT1AER INH (22:34)
[2020-03-28] MEDS ORDERED: AMOX1TAB64 PO (22:34)
[2020-03-28] MEDS ORDERED: DILT120C83 PO (22:34)
[2020-03-28] MEDS ORDERED: IPRA4AER INH (22:34)
[2020-03-28] MEDS ORDERED: ALBU8.5H8 INH (22:34)
[2020-03-28] MEDS ORDERED: LISI40TA PO (22:34)
[2020-03-28] MEDS ORDERED: PRED10TA PO (22:34)
[2020-03-28] MEDS ORDERED: NICO-486 TD (22:34)
[2020-03-28] MEDS ORDERED: OMEP20TA9 PO (22:34)
[2020-03-29 01:25] VITALS: BP 147/89
[2020-03-29] MEDS: BUDESONIDE 0.5 MG/2 ML INHA NPPB SCH (06:40)
[2020-03-29] MEDS: ALBUTEROL/IPRATROPIUM 2.5MG/0.5MG, 3 ML NPPB SCH (06:40)
[2020-03-29 06:41] VITALS: BP 160/90
[2020-03-29] MEDS: LISINOPRIL 40 MG TABLET PO SCH (07:50)
[2020-03-29] MEDS: FOLIC ACID 1 MG TABLET PO SCH (07:50)
[2020-03-29] MEDS: MULTIVITAMINS/MINERALS TABLET PO SCH (07:50)
[2020-03-29] MEDS: PANTOPRAZOLE 40MG TABLET PO SCH (07:51)
[2020-03-29] MEDS: SENNA/DOCUSATE TABLET PO SCH (07:51)
[2020-03-29] MEDS: THIAMINE 100MG TABLET PO SCH (07:51)
[2020-03-29] MEDS: INSULIN LISPRO 100 UNITS/ML, PEN SQ-INSULIN SCH (07:52)
[2020-03-29] MEDS: methylPREDNISolone SOD SUCC 125 MG/2 ML IVPush SCH (08:03)
[2020-03-29] MEDS: LORazepam 0.5MG TABLET PO SCH (08:05)
[2020-03-29] MEDS ORDERED: DILTIAZEM 120 MG CAP.ER.24H PO SCH (09:00)
== END 2020-03-29 09:34 | disposition home or self-care (01) | DRG 203 ==
LOC: ED 14:41 → EDIP 14:49 → 3N 18:31
PROVIDERS: ADMIT Internal Medicine; ATTEND Internal Medicine
DX: J20.9 Acute bronchitis, unspecified (principal); J43.9 Emphysema, unspecified; E83.42 Hypomagnesemia; E87.6 Hypokalemia; F10.10 Alcohol abuse, uncomplicated; F17.210 Nicotine dependence, cigarettes, uncomplicated; I10 Essential (primary) hypertension; T38.0X5A Adverse effect of glucocorticoids and synthetic analogues, initial encounter; Z59.0 Homelessness; Z91.013 Allergy to seafood; Z91.048 Other nonmedicinal substance allergy status; Y92.89 Other specified places as the place of occurrence of the external cause
CPT/HCPCS: 36415; 96374; 99285; J7613; J7626; 71045; 80048; 80053; 81003; 82040; 82962; 83036; 83735; 84100; 84439; 84443; 85025; 93005; 94640; G0378; J0696; J1650; J1815; J2930; J3475; J7030

== ENCOUNTER 2020-04-27 08:59 | Inpatient (IN) | payer MEDICAID ==
[~2020-04-27] VITALS: Ht 190.5 cm; Wt 73.9 kg
[~2020-04-27 08:59] MED LIST changes: +AMOX1TAB64 PO; +DILT120C83 PO; +MULT-449 PO; -MULT1TAB60 PO; +NICO-486 TD
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
[2020-04-27] MEDS ORDERED: ALBUTEROL 0.5%, 20ML ONE (09:19)
[2020-04-27] MEDS: ALBUTEROL 0.5%, 20ML NPPB SCH ×2 (09:26→16:32)
--- NOTE | 2020-04-27 09:27 | NUR ---
ASSUMED CARE. PT RECEIVING CONTINUOUS BREATHING TX SET UP BY RT. MEDICATED PER MAR WITH PREDNISONE
[2020-04-27] MEDS ORDERED: SODIUM CHLORIDE FLUSH 10ML SYR IVF ONE (09:30)
[2020-04-27] MEDS ORDERED: IPRATROPIUM 0.5 MG/2.5 ML INHA NPPB ONE (09:30)
[2020-04-27 10:09] LABS: ALANINE AMINOTRANSFERASE 43 U/L (12-78); ALBUMIN 3.1 g/dL (3.4-5.0); ANION GAP 8 mmol/L (5-15); CALCIUM 8.7 mg/dL (8.5-10.1); CHLORIDE 90 mmol/L (98-107)
[2020-04-27 10:16] LABS: ALKALINE PHOSPHATASE 74 U/L (45-117); BILIRUBIN,TOTAL 0.3 mg/dL (0.2-1.0); TOTAL PROTEIN 6.2 g/dL (6.4-8.2); TROPONIN I < 0.015 ng/mL (0.000-0.045)
[2020-04-27 10:23] LABS: MEAN CORPUSCULAR HGB CONC 33.2 g/dL (33.2-36.2); MEAN PLATELET VOLUME 8.1 fL (7.4-10.4); PLATELET COUNT 257 x10^3/uL (130-400); RED BLOOD COUNT 3.58 x10^6/uL (4.38-5.82); RED CELL DISTRIBUTION WIDTH 18.5 % (9.4-14.8)
[2020-04-27] MEDS ORDERED: SODIUM CHLORIDE 0.9% 1,000ML IVBOLUS ONE (10:30)
--- NOTE | 2020-04-27 10:35 | NUR ---
REMAINS ON CONTINUOUS BREATHING TX. RESTING WITH EYES CLOSED.
[2020-04-27 11:21] LABS: BASOPHILS # (AUTO) 0.03 x10^3/uL (0-0.1); BASOPHILS % (AUTO) 0 % (0-1); EOSINOPHILS # (AUTO) 0.03 x10^3/uL (0-0.4); EOSINOPHILS % (AUTO) 0 % (1-7); LYMPHOCYTES % (AUTO) 14 % (22-44); MD SCAN; MONOCYTES # (AUTO) 1.46 x10^3/uL (0.2-0.8); MONOCYTES % (AUTO) 13 % (2-9); NEUTROPHILS # (AUTO) 8.45 x10^3/uL (1.8-6.8); NEUTROPHILS % (AUTO) 73 % (42-75)
--- NOTE | 2020-04-27 11:47 | NUR ---
PT SLEEPING. CONTINUE TO MONITOR
[2020-04-27] MEDS ORDERED: PROMETHAZINE 25 MG/ML, 1ML IM PRN (12:30)
[2020-04-27] MEDS ORDERED: ACETAMINOPHEN 325 MG TABLET PO PRN (12:30)
[2020-04-27] MEDS ORDERED: hydrALAzine 20 MG/ML, 1ML IVPush PRN (12:30)
[2020-04-27] MEDS ORDERED: LABETALOL 5MG/ML, 20ML IVPush PRN (12:30)
[2020-04-27] MEDS ORDERED: ALBUTEROL/IPRATROPIUM 2.5MG/0.5MG, 3 ML HHN SCH (12:30)
[2020-04-27] MEDS ORDERED: ONDANSETRON 2MG/ML, 2ML IVPush PRN (12:30)
[2020-04-27] MEDS: methylPREDNISolone SOD SUCC 125 MG/2 ML IVPush SCH ×3 (12:37→23:52)
--- NOTE | 2020-04-27 12:38 | NUR ---
1230 SOLUMEDEROL NOT GIVEN BECAUSE PREDNISONE GIVEN ON ARRIVAL TO ER NOTED ON MAR
--- NOTE | 2020-04-27 13:16 | NUR ---
PT AWARE OF ADMISSION. COVID USED CAR LOT ATTENDANT SWAB OBTAINED. FLUIDS INFUSING NOTED ON DEC. CONTINUE TO MONITOR. PT A&O, STATES FEELING LESS SOB WITH WOB IMPROVED.
[2020-04-27] MEDS ORDERED: HEPARIN 5,000 UNITS/ML, 1ML ONE ×2 (14:14→20:59)
[2020-04-27] MEDS ORDERED: NICOTINE 7 MG/24 HR PATCH.TD24 ONE (14:15)
[2020-04-27] MEDS: HEPARIN 5,000 UNITS/ML, 1ML SQ SCH ×2 (15:33→23:53)
[2020-04-27] MEDS: NICOTINE 7 MG/24 HR PATCH.TD24 TD SCH (15:33)
[2020-04-27] MEDS ORDERED: ALBUTEROL/IPRATROPIUM 2.5MG/0.5MG, 3 ML ONE (16:27)
[2020-04-27] MEDS: SODIUM CHLORIDE 0.9% 1,000 ML IV SCH ×2 (16:31→20:30)
--- NOTE | 2020-04-27 16:32 | NUR ---
VARUN RN: PT REQUESTING BREATHING TREATMENT, TREATMENT GIVEN, PT TOLERATED WELL. IV INFUSION WELL, PT VERBALIZED NO NEEDS AT THIS TIME
--- NOTE | 2020-04-27 16:37 | NUR ---
VARUN RN: PT URINATED 700CC, GAVE 500CC OF 7-UP, PT VERBALIZED NO OTHER NEEDS AT THIS TIME
[2020-04-27] MEDS ORDERED: methylPREDNISolone SOD SUCC 125 MG/2 ML ONE ×2 (18:41→23:44)
[2020-04-27] MEDS ORDERED: POTASSIUM CHLORIDE 20 MEQ TAB.ER.PRT ONE (18:44)
[2020-04-27] MEDS: POTASSIUM CHLORIDE 20 MEQ TAB.ER.PRT PO SCH (18:48)
[2020-04-27] MEDS: ALBUTEROL-IPRATROPIUM MDI INH INH SCH ×2 (18:48→23:53)
[2020-04-27] MEDS: GUAIFENESIN 200 MG TABLET PO SCH ×2 (18:48→23:52)
--- NOTE | 2020-04-27 18:54 | NUR ---
MEDICATED NOTED ON DEC AND NOW THAT 18G AC ESTABLISHED, PT TO CT
--- NOTE | 2020-04-27 19:01 | NUR ---
Report recieved from Deanne LUNA
[2020-04-27] MEDS ORDERED: OMNIPAQUE 350 MG/ML, 75ML BOTTLE ONE (19:35)
--- NOTE | 2020-04-27 20:09 | NUR ---
Pt provided with meal tray, VSS, NAD at this time, pt sitting comfortably in bed watching TV, callbell within reach, urinal emptied and put at bedside
[2020-04-27 20:33] LABS: OSMOLALITY,URINE 133 mOsm/kg (500-850)
[2020-04-27] MEDS ORDERED: GUAIFENESIN 200 MG TABLET ONE (21:04)
--- NOTE | 2020-04-27 22:04 | NUR ---
Pt provided with soda and ice per request, urinal emptied and at bedside, NAD noted at this time, VSS, resting comfortably in bed
--- NOTE | 2020-04-28 | NUR ---
Pt medicated per MAR, pt resting comfortably in bed, provided warm blankets per request, VSS, NAD noted
[2020-04-28] MEDS: SODIUM CHLORIDE 0.9% 1,000 ML IV SCH (04:30)
--- NOTE | 2020-04-28 04:56 | NUR ---
Pt appears to be sleeping comfortably in bed, call alvares and belongings within reach, NAD noted at this time, VSS
[2020-04-28 05:13] LABS: BASOPHILS % (AUTO) 0 % (0-1); EOSINOPHILS % (AUTO) 0 % (1-7); LYMPHOCYTES # (AUTO) 0.27 x10^3/uL (1-3.4); LYMPHOCYTES % (AUTO) 5 % (22-44); MD NO; MEAN CORPUSCULAR HEMOGLOBIN 30.7 pg (27.5-34.5); MEAN CORPUSCULAR HGB CONC 32.9 g/dL (33.2-36.2); MEAN PLATELET VOLUME 8.2 fL (7.4-10.4); MONOCYTES # (AUTO) 0.04 x10^3/uL (0.2-0.8); MONOCYTES % (AUTO) 1 % (2-9); NEUTROPHILS # (AUTO) 5.23 x10^3/uL (1.8-6.8); NEUTROPHILS % (AUTO) 94 % (42-75); PLATELET COUNT 242 x10^3/uL (130-400); RED CELL DISTRIBUTION WIDTH 18.6 % (9.4-14.8)
[2020-04-28 05:20] LABS: ALANINE AMINOTRANSFERASE 36 U/L (12-78); ALBUMIN 2.8 g/dL (3.4-5.0); ANION GAP 5 mmol/L (5-15); CALCIUM 8.6 mg/dL (8.5-10.1); CHLORIDE 100 mmol/L (98-107); CREATININE 0.59 mg/dL (0.7-1.3)
[2020-04-28 05:23] LABS: ALKALINE PHOSPHATASE 70 U/L (45-117); BILIRUBIN,TOTAL 0.4 mg/dL (0.2-1.0); TOTAL PROTEIN 5.8 g/dL (6.4-8.2)
[2020-04-28] MEDS ORDERED: methylPREDNISolone SOD SUCC 125 MG/2 ML ONE (06:05)
[2020-04-28] MEDS ORDERED: GUAIFENESIN 200 MG TABLET ONE ×4 (06:08→15:45)
[2020-04-28] MEDS: ALBUTEROL-IPRATROPIUM MDI INH INH SCH ×4 (06:14→22:30)
[2020-04-28] MEDS: methylPREDNISolone SOD SUCC 125 MG/2 ML IVPush SCH ×2 (06:14→12:30)
[2020-04-28] MEDS: GUAIFENESIN 200 MG TABLET PO SCH ×5 (06:14→20:27)
--- NOTE | 2020-04-28 06:41 | NUR ---
Pt awake and resting comfortably in bed breathing without difficulty, pt provided with coffee per request
--- NOTE | 2020-04-28 06:52 | NUR ---
REPORT FROM JAROCHO
[2020-04-28] MEDS ORDERED: POTASSIUM CHLORIDE 20 MEQ TAB.ER.PRT ONE ×2 (08:32→18:09)
[2020-04-28] MEDS ORDERED: HEPARIN 5,000 UNITS/ML, 1ML ONE ×2 (08:32→15:45)
[2020-04-28] MEDS ORDERED: DILTIAZEM 60 MG TABLET ONE ×2 (08:33)
[2020-04-28] MEDS ORDERED: OMEPRAZOLE 20 MG CAPSULE.DR ONE (09:10)
[2020-04-28] MEDS ORDERED: LISINOPRIL 20 MG TABLET ONE (09:10)
[2020-04-28] MEDS: HEPARIN 5,000 UNITS/ML, 1ML SQ SCH ×2 (09:21→15:54)
[2020-04-28] MEDS: POTASSIUM CHLORIDE 20 MEQ TAB.ER.PRT PO SCH ×2 (09:21→18:10)
[2020-04-28] MEDS: OMEPRAZOLE 20 MG CAPSULE.DR PO SCH (09:22)
[2020-04-28] MEDS: LISINOPRIL 40 MG TABLET PO SCH (10:27)
[2020-04-28] MEDS: DILTIAZEM 120 MG CAP.ER.12H PO SCH (10:27)
--- NOTE | 2020-04-28 11:15 | NUR ---
REVIEW OF CHART, ASSUME CARE OF PT AT THIS TIME. CALL TO PHARMACY TO REQUEST 0900 MED CHLORTHALIDONE. PT COMFORTABLE AT THIS TIME, NO COMPLAINTS.
[2020-04-28] MEDS: CHLORTHALIDONE 25 MG TABLET PO SCH (11:30)
--- NOTE | 2020-04-28 11:30 | NUR ---
MED GIVEN, PT PROVIDED COFFEE PER REQUEST. CALL LIGHT WITHIN REACH. PULSE OX IN PLACE, VSS. IV SL NOTED.
--- NOTE | 2020-04-28 12:30 | NUR ---
PT RESTING, WATCHING TV, NAD. PT STATES HE'D LIKE TO GO HOME AFTER LUNCH. WILL INFORM [facility].
--- NOTE | 2020-04-28 13:38 | NUR ---
CALL TO DR GRECO REQUESTING RE-EVAL OF PT. PT WITH STABLE VS, ONLY SLIGHT SOB WITH EXERTION WHICH IS NORMAL FOR PT. AND PT REQUESTING TO BE DISCHARGED. DR GRECO TO RE-EVAL BUT STATES PT NEEDS COVID R/O PRIOR TO DC B/C OF LIVING IN HOMELESS [facility]. MEAL TRAY DELIVERED.
--- NOTE | 2020-04-28 13:45 | NUR ---
DR GRECO IN TO REEVALUATE PT. DR GRECO STATES PT MUCH BETTER AND CAN BE DISCHARGED IF HOUSING SITUATION RESOLVED AND REFERS TO SW. CHARGE AND THROUGHPUT RN NOTIFIED.
--- NOTE | 2020-04-28 14:00 | NUR ---
THROUGHPUT RN: SPOKE W/ MERLYN CHANEY WHO WAS MADE AWARE OF PT COVID R/O STATUS AND NEED FOR PLACEMENT IN OUTSIDE COVID HOUSING IN ORDER FOR PT TO BE DC'D. SHIV STATES SHE WILL LOOK INTO IT AND GET BACK TO ISAIAS PRIMARY RN.
--- NOTE | 2020-04-28 15:00 | NUR ---
THROUGHPUT RN: SPOKE W/ MERLYN CHANEY WHO HAD PT SIGN PAPERWORK TO BE SENT TO THE [facility]. PER SW WILL FAX PAPERWORK AND WAIT FOR CALL FROM [facility].
[2020-04-28] MEDS ORDERED: NICOTINE 7 MG/24 HR PATCH.TD24 ONE (15:45)
--- NOTE | 2020-04-28 15:46 | NUR ---
CALL FROM SHIV ZULETA, ASKING ABOUT MEDS PT WILL REQUIRE ON DISCHARGE. SHIV REFERRED TO DR GRECO TO DISCUSS.
[2020-04-28] MEDS: NICOTINE 7 MG/24 HR PATCH.TD24 TD SCH (15:55)
[2020-04-28] MEDS ORDERED: ALBU8.5H8 INH (16:03)
[2020-04-28] MEDS ORDERED: GUAI200T37 PO ×2 (16:03)
[2020-04-28] MEDS ORDERED: CHLO25TA PO ×2 (16:03)
[2020-04-28] MEDS ORDERED: FLUT1AER INH (16:03)
[2020-04-28] MEDS ORDERED: TIOT18CA INH (16:03)
[2020-04-28] MEDS ORDERED: PRED20TA PO ×2 (16:03)
[2020-04-28] MEDS ORDERED: CLON0.1T22 PO ×2 (16:05)
--- NOTE | 2020-04-28 16:14 | NUR ---
VS UPDATED, DR GRECO NOTIFIED. PER DR GRECO, HOLD ON DISCHARGE UNTIL SBP LESS THAT 160. DR GRECO TO ORDER MORE MEDICATION. PT INFORMED.
--- NOTE | 2020-04-28 17:08 | NUR ---
TASK RN NOTE: PT RECLINED IN BED WATCHING TELEVISION. NAD NOTED AT THIS TIME. RESPIRATIONS EVEN AND UNLABORED. AWAITING ADMIT BED.
--- NOTE | 2020-04-28 18:39 | NUR ---
ATTEMPT TO CALL REPORT, RN IN PT ROOM AND UNAVAILABLE-WILL CALL BACK.
--- NOTE | 2020-04-28 19:18 | NUR ---
ADMIT BED OBTAINED AT 1820. 2ND ATTEMPT TO CALL REPORT AT 1915. INFORMED THAT RN IN SHIFT REPORT AND WILL NEED TO CALL BACK. THIS RN ASKED TO GIVE REPORT TO MIXING ROLL OPERATOR PER PROTOCOL. THEN INFORMED THAT TELE SUP WOULD CALL ED SUP AND UNABLE TO GIVE REPORT. THIS INFORMATION RELAYED TO LEFTY BOOKER MIXING ROLL OPERATOR.
--- NOTE | 2020-04-28 19:54 | NUR ---
REPORT TO KATHLEEN SANTANA READY FOR TRANSPORT.
[2020-04-28 20:24] VITALS: BP 153/87
[2020-04-29 00:33] VITALS: BP 150/85
[2020-04-29] MEDS: HEPARIN 5,000 UNITS/ML, 1ML SQ SCH ×3 (00:48→17:26)
[2020-04-29 05:36] LABS: CHLORIDE 98 mmol/L (98-107)
[2020-04-29 05:45] LABS: ALANINE AMINOTRANSFERASE 32 U/L (12-78); ALBUMIN 2.9 g/dL (3.4-5.0); ALKALINE PHOSPHATASE 71 U/L (45-117); ANION GAP 4 mmol/L (5-15); BILIRUBIN,TOTAL 0.3 mg/dL (0.2-1.0); CALCIUM 9.6 mg/dL (8.5-10.1); TOTAL PROTEIN 5.7 g/dL (6.4-8.2)
[2020-04-29] MEDS: ALBUTEROL-IPRATROPIUM MDI INH INH SCH ×4 (06:24→22:00)
[2020-04-29] MEDS: GUAIFENESIN 200 MG TABLET PO SCH ×4 (06:24→23:03)
[2020-04-29 08:00] VITALS: BP 110/54
[2020-04-29] MEDS ORDERED: DOXAZOSIN 2MG TABLET PO SCH (09:00)
[2020-04-29] MEDS: DILTIAZEM 120 MG CAP.ER.12H PO SCH (09:43)
[2020-04-29] MEDS: LISINOPRIL 40 MG TABLET PO SCH (09:44)
[2020-04-29] MEDS: OMEPRAZOLE 20 MG CAPSULE.DR PO SCH (09:44)
[2020-04-29] MEDS: POTASSIUM CHLORIDE 20 MEQ TAB.ER.PRT PO SCH (09:44)
[2020-04-29] MEDS: CHLORTHALIDONE 25 MG TABLET PO SCH (09:44)
[2020-04-29 12:24] VITALS: BP 149/98
[2020-04-29] MEDS: NICOTINE 7 MG/24 HR PATCH.TD24 TD SCH (12:30)
[2020-04-29] MEDS: methylPREDNISolone SOD SUCC 125 MG/2 ML IVPush SCH ×2 (13:16→23:04)
[2020-04-29 20:00] VITALS: BP 97/72
[2020-04-29] MEDS: ATROVENT HFA INHALER INH SCH (23:04)
[2020-04-29] MEDS: ALBUTEROL HFA 90 MCG/SPRAY INH SCH (23:04)
[2020-04-30 00:15] VITALS: BP 107/77
[2020-04-30] MEDS: HEPARIN 5,000 UNITS/ML, 1ML SQ SCH ×3 (01:22→18:15)
[2020-04-30 05:00] LABS: ANION GAP 8 mmol/L (5-15); CHLORIDE 97 mmol/L (98-107); CREATININE 0.76 mg/dL (0.7-1.3)
[2020-04-30] MEDS: ALBUTEROL HFA 90 MCG/SPRAY INH SCH ×4 (05:10→23:19)
[2020-04-30] MEDS: methylPREDNISolone SOD SUCC 125 MG/2 ML IVPush SCH ×4 (05:10→23:19)
[2020-04-30] MEDS: GUAIFENESIN 200 MG TABLET PO SCH ×3 (05:10→16:00)
[2020-04-30] MEDS: ATROVENT HFA INHALER INH SCH ×4 (05:10→23:19)
[2020-04-30 06:51] VITALS: BP 135/79
[2020-04-30 11:05] VITALS: BP 128/89
[2020-04-30] MEDS: LISINOPRIL 40 MG TABLET PO SCH (11:12)
[2020-04-30] MEDS: CHLORTHALIDONE 25 MG TABLET PO SCH (11:12)
[2020-04-30] MEDS: DILTIAZEM 120 MG CAP.ER.12H PO SCH (11:12)
[2020-04-30] MEDS: DOXAZOSIN 2MG TABLET PO SCH (11:13)
[2020-04-30] MEDS: NICOTINE 7 MG/24 HR PATCH.TD24 TD SCH (11:14)
[2020-04-30] MEDS: OMEPRAZOLE 20 MG CAPSULE.DR PO SCH (11:14)
[2020-04-30 12:41] VITALS: BP 122/87
[2020-04-30] MEDS: POTASSIUM CHLORIDE 20 MEQ TAB.ER.PRT PO SCH (18:15)
[2020-04-30 19:06] VITALS: BP 143/61
[2020-04-30] MEDS: GUAIFENESIN ER 600 MG TABLET PO SCH (20:33)
[2020-04-30] MEDS: DOXYCYCLINE 100MG TABLET PO SCH (20:33)
[2020-05-01 01:50] VITALS: BP 135/77
[2020-05-01] MEDS: HEPARIN 5,000 UNITS/ML, 1ML SQ SCH ×3 (03:07→21:02)
[2020-05-01] MEDS: methylPREDNISolone SOD SUCC 125 MG/2 ML IVPush SCH ×4 (05:05→23:19)
[2020-05-01] MEDS: ATROVENT HFA INHALER INH SCH ×4 (05:07→23:18)
[2020-05-01] MEDS: ALBUTEROL HFA 90 MCG/SPRAY INH SCH ×4 (05:07→23:19)
[2020-05-01 05:15] LABS: CHLORIDE 97 mmol/L (98-107)
[2020-05-01 05:22] LABS: ANION GAP 6 mmol/L (5-15); CALCIUM 9.4 mg/dL (8.5-10.1); CREATININE 0.66 mg/dL (0.7-1.3)
[2020-05-01 07:02] VITALS: BP 144/91
[2020-05-01] MEDS: CHLORTHALIDONE 25 MG TABLET PO SCH (09:31)
[2020-05-01] MEDS: GUAIFENESIN ER 600 MG TABLET PO SCH ×2 (09:31→21:02)
[2020-05-01] MEDS: POTASSIUM CHLORIDE 20 MEQ TAB.ER.PRT PO SCH ×3 (09:31→17:16)
[2020-05-01] MEDS: LISINOPRIL 40 MG TABLET PO SCH (09:31)
[2020-05-01] MEDS: DOXAZOSIN 2MG TABLET PO SCH (09:31)
[2020-05-01] MEDS: OMEPRAZOLE 20 MG CAPSULE.DR PO SCH (09:31)
[2020-05-01] MEDS: DILTIAZEM 120 MG CAP.ER.12H PO SCH (09:31)
[2020-05-01] MEDS: DOXYCYCLINE 100MG TABLET PO SCH ×2 (09:32→21:02)
[2020-05-01] MEDS: NICOTINE 7 MG/24 HR PATCH.TD24 TD SCH (11:43)
[2020-05-01 14:31] VITALS: BP 123/71
[2020-05-01 15:35] VITALS: BP 119/77
[2020-05-01 21:09] VITALS: BP 154/87
[2020-05-02 00:06] VITALS: BP 136/84
[2020-05-02] MEDS: methylPREDNISolone SOD SUCC 125 MG/2 ML IVPush SCH (05:08)
[2020-05-02] MEDS: HEPARIN 5,000 UNITS/ML, 1ML SQ SCH ×3 (05:08→20:25)
[2020-05-02] MEDS: ALBUTEROL HFA 90 MCG/SPRAY INH SCH ×4 (05:08→22:55)
[2020-05-02] MEDS: ATROVENT HFA INHALER INH SCH ×4 (05:08→22:55)
[2020-05-02 06:45] VITALS: BP 160/93
[2020-05-02] MEDS ORDERED: ACETAMINOPHEN 325 MG TABLET PO PRN (07:30)
[2020-05-02] MEDS: DOXAZOSIN 2MG TABLET PO SCH (08:22)
[2020-05-02] MEDS: GUAIFENESIN ER 600 MG TABLET PO SCH ×2 (08:22→20:25)
[2020-05-02] MEDS: POTASSIUM CHLORIDE 20 MEQ TAB.ER.PRT PO SCH ×3 (08:22→17:26)
[2020-05-02] MEDS: LISINOPRIL 40 MG TABLET PO SCH (08:22)
[2020-05-02] MEDS: LACTOBACILLUS CHEW TABLET PO SCH ×3 (08:23→20:25)
[2020-05-02] MEDS: DOXYCYCLINE 100MG TABLET PO SCH ×2 (08:23→20:25)
[2020-05-02] MEDS: CARVEDILOL 12.5 MG TABLET PO SCH ×2 (08:27→17:26)
[2020-05-02] MEDS ORDERED: ALBUTEROL SULFATE 2.5 MG/3 ML NPPB PRN (09:30)
[2020-05-02] MEDS: SODIUM CHLORIDE 0.9% 1,000 ML IV SCH ×2 (09:54→22:52)
[2020-05-02] MEDS: NICOTINE 7 MG/24 HR PATCH.TD24 TD SCH (12:07)
[2020-05-02 13:31] VITALS: BP 141/90
[2020-05-02 18:41] VITALS: BP 157/90
[2020-05-03 00:30] VITALS: BP 159/99
[2020-05-03] MEDS: HEPARIN 5,000 UNITS/ML, 1ML SQ SCH ×3 (04:07→20:30)
[2020-05-03 05:14] LABS: % IRON SATURATION 26 % (20-55); ANION GAP 6 mmol/L (5-15); CALCIUM 8.6 mg/dL (8.5-10.1); CHLORIDE 99 mmol/L (98-107); CREATININE 0.78 mg/dL (0.7-1.3); IRON LEVEL 69 mcg/dL (65-175); TOTAL IRON BINDING CAPACITY 263 mcg/dL (250-450)
[2020-05-03] MEDS: ATROVENT HFA INHALER INH SCH ×5 (05:24→23:00)
[2020-05-03] MEDS: ALBUTEROL HFA 90 MCG/SPRAY INH SCH ×5 (05:24→23:00)
[2020-05-03] MEDS: CARVEDILOL 12.5 MG TABLET PO SCH ×2 (05:48→17:50)
[2020-05-03 06:32] VITALS: BP 154/98
[2020-05-03] MEDS ORDERED: POTASSIUM CHLORIDE 20 MEQ TAB.ER.PRT PO ONE (07:30)
[2020-05-03] MEDS ORDERED: MAGNESIUM SULFATE PMX 2GM/50ML 50 ML IV ONE (07:30)
[2020-05-03] MEDS: POTASSIUM CHLORIDE 20 MEQ TAB.ER.PRT PO SCH ×3 (07:37→16:38)
[2020-05-03] MEDS: DOXAZOSIN 2MG TABLET PO SCH (07:56)
[2020-05-03] MEDS: GUAIFENESIN ER 600 MG TABLET PO SCH ×2 (07:56→20:29)
[2020-05-03] MEDS: LISINOPRIL 40 MG TABLET PO SCH (07:57)
[2020-05-03] MEDS: LACTOBACILLUS CHEW TABLET PO SCH ×3 (07:57→20:29)
[2020-05-03] MEDS: DOXYCYCLINE 100MG TABLET PO SCH ×2 (07:57→20:29)
[2020-05-03 10:31] LABS: FIO2 ROOM AIR %
[2020-05-03] MEDS ORDERED: FUROSEMIDE 40 MG/4 ML IV ONE (12:00)
[2020-05-03] MEDS: NICOTINE 7 MG/24 HR PATCH.TD24 TD SCH (12:19)
[2020-05-03 13:56] VITALS: BP 108/75
[2020-05-03 18:54] VITALS: BP 113/82
[2020-05-04 02:34] VITALS: BP 126/88
[2020-05-04] MEDS: ATROVENT HFA INHALER INH SCH ×4 (05:00→23:00)
[2020-05-04 05:10] LABS: ANION GAP 2 mmol/L (5-15); CALCIUM 8.9 mg/dL (8.5-10.1); CHLORIDE 96 mmol/L (98-107)
[2020-05-04 05:15] LABS: CREATININE 0.62 mg/dL (0.7-1.3)
[2020-05-04 05:42] VITALS: BP 122/86
[2020-05-04] MEDS: HEPARIN 5,000 UNITS/ML, 1ML SQ SCH ×3 (05:45→20:27)
[2020-05-04] MEDS: CARVEDILOL 12.5 MG TABLET PO SCH ×2 (05:45→17:27)
[2020-05-04] MEDS: ALBUTEROL HFA 90 MCG/SPRAY INH SCH ×6 (05:46→23:00)
[2020-05-04 07:02] VITALS: BP 117/82
[2020-05-04] MEDS ORDERED: MAGNESIUM SULFATE PMX 4GM/100M 100 ML IV ONE (08:00)
[2020-05-04] MEDS: LISINOPRIL 40 MG TABLET PO SCH (09:11)
[2020-05-04] MEDS: DOXYCYCLINE 100MG TABLET PO SCH ×2 (09:12→20:27)
[2020-05-04] MEDS: POTASSIUM CHLORIDE 20 MEQ TAB.ER.PRT PO SCH ×3 (09:13→17:27)
[2020-05-04] MEDS: POTASSIUM CHLORIDE 20 MEQ TAB.ER.PRT PO ONE ×2 (09:14→11:02)
[2020-05-04] MEDS: GUAIFENESIN ER 600 MG TABLET PO SCH ×2 (09:15→20:27)
[2020-05-04] MEDS: DOXAZOSIN 2MG TABLET PO SCH (09:15)
[2020-05-04] MEDS: LACTOBACILLUS CHEW TABLET PO SCH ×3 (09:18→20:27)
[2020-05-04] MEDS: NICOTINE 7 MG/24 HR PATCH.TD24 TD SCH (11:11)
[2020-05-04 14:01] VITALS: BP 134/87
[2020-05-04 18:46] VITALS: BP 111/76
[2020-05-05 00:01] VITALS: BP 100/68
[2020-05-05] MEDS: ALBUTEROL HFA 90 MCG/SPRAY INH SCH ×5 (03:00→15:00)
[2020-05-05] MEDS: ATROVENT HFA INHALER INH SCH ×3 (05:00→17:00)
[2020-05-05 05:10] VITALS: BP 116/79
[2020-05-05] MEDS: CARVEDILOL 12.5 MG TABLET PO SCH ×2 (05:12→17:12)
[2020-05-05] MEDS: HEPARIN 5,000 UNITS/ML, 1ML SQ SCH ×2 (05:12→16:11)
[2020-05-05 05:34] LABS: ANION GAP 4 mmol/L (5-15); CALCIUM 9.5 mg/dL (8.5-10.1); CHLORIDE 98 mmol/L (98-107); CREATININE 0.53 mg/dL (0.7-1.3)
[2020-05-05 06:57] VITALS: BP 100/86
[2020-05-05] MEDS: LISINOPRIL 40 MG TABLET PO SCH (07:54)
[2020-05-05] MEDS: GUAIFENESIN ER 600 MG TABLET PO SCH (07:55)
[2020-05-05] MEDS: LACTOBACILLUS CHEW TABLET PO SCH ×2 (07:55→16:10)
[2020-05-05] MEDS: DOXAZOSIN 2MG TABLET PO SCH (07:58)
[2020-05-05 07:59] VITALS: BP 120/74
[2020-05-05] MEDS ORDERED: FUROSEMIDE 40 MG TABLET PO SCH (09:00)
[2020-05-05] MEDS: NICOTINE 7 MG/24 HR PATCH.TD24 TD SCH (11:38)
[2020-05-05] MEDS ORDERED: CARV12.52 PO (16:22)
[2020-05-05] MEDS ORDERED: POTA20TA6 PO ×2 (16:22)
[2020-05-05] MEDS ORDERED: FURO40TA6 PO ×2 (16:22)
[2020-05-05] MEDS ORDERED: ACID1TAB7 PO ×2 (16:22)
[2020-05-05] MEDS ORDERED: DOXA2TAB9 PO ×2 (16:22)
[2020-05-06] MEDS ORDERED: POTASSIUM CHLORIDE 20 MEQ TAB.ER.PRT PO SCH (09:00)
[2020-06-04] MEDS ORDERED: PRED20TA PO ×2 (11:05)
[2020-06-16] MEDS ORDERED: PRED20TA PO ×4 (13:50)
[2020-06-16] MEDS ORDERED: FLUT1AER INH ×2 (13:50)
[2020-06-16] MEDS ORDERED: FLUC100T4 PO ×2 (13:56)
[2020-06-17] MEDS ORDERED: FLUC100T PO ×2 (15:56)
[2020-07-24] MEDS ORDERED: PRED20TA PO ×2 (09:26)
[2020-07-24] MEDS ORDERED: DOXY100T PO ×2 (09:26)
== END 2020-05-05 18:11 | disposition home or self-care (01) | DRG 189 ==
LOC: ED 09:12 → EDIP 12:23 → 4NW 04-28 20:07 → 3N 05-01 15:24
PROVIDERS: ADMIT Emergency Medicine; ATTEND Internal Medicine
DX: J96.01 Acute respiratory failure with hypoxia (principal); E87.1 Hypo-osmolality and hyponatremia; D64.9 Anemia, unspecified; D72.829 Elevated white blood cell count, unspecified; E78.5 Hyperlipidemia, unspecified; E83.42 Hypomagnesemia; E86.1 Hypovolemia; F17.210 Nicotine dependence, cigarettes, uncomplicated; I10 Essential (primary) hypertension; E87.6 Hypokalemia; I16.0 Hypertensive urgency; J43.9 Emphysema, unspecified; R73.9 Hyperglycemia, unspecified; Z59.0 Homelessness; Z90.49 Acquired absence of other specified parts of digestive tract; Z71.6 Tobacco abuse counseling; Z03.818 Encounter for observation for suspected exposure to other biological agents ruled out
CPT/HCPCS: 36415; 36600; 99285; J7644; 71045; 71275; 80048; 80053; 82803; 83036; 83540; 83550; 83735; 83880; 83930; 83935; 84100; 84484; 85025; 85379; 87635; 93005; 94644; G0378; J1644; J1940; Q9967; J2930; J3475; J7030; J7512

== ENCOUNTER 2020-05-27 14:34 | Emergency (ER) | payer MEDICAID ==
[~2020-05-27] VITALS: Ht 188 cm; Wt 79.0 kg
[~2020-05-27 14:34] MED LIST changes: +ACID1TAB7 PO; +CARV12.52 PO; +CHLO25TA PO; +CLON0.1T22 PO; +DOXA2TAB9 PO; +FURO40TA6 PO; +GUAI200T37 PO; +POTA20TA6 PO
[2020-05-27] MEDS ORDERED: ALBUTEROL/IPRATROPIUM 2.5MG/0.5MG, 3 ML NPPB ONE (15:30)
[2020-05-27] MEDS ORDERED: ALBUTEROL/IPRATROPIUM 2.5MG/0.5MG, 3 ML ONE (15:46)
[2020-05-27 16:02] VITALS: BP 120/79
[2020-06-04] MEDS ORDERED: PRED20TA PO ×2 (11:05)
[2020-06-16] MEDS ORDERED: FLUT1AER INH ×2 (13:50)
[2020-06-16] MEDS ORDERED: PRED20TA PO ×4 (13:50)
[2020-06-16] MEDS ORDERED: FLUC100T4 PO ×2 (13:56)
[2020-06-17] MEDS ORDERED: FLUC100T PO ×2 (15:56)
[2020-07-24] MEDS ORDERED: DOXY100T PO ×2 (09:26)
[2020-07-24] MEDS ORDERED: PRED20TA PO ×2 (09:26)
== END 2020-05-27 17:33 | disposition home or self-care (01) ==
LOC: ED 14:56
DX: S39.012A Strain of muscle, fascia and tendon of lower back, initial encounter (principal); I10 Essential (primary) hypertension; J44.9 Chronic obstructive pulmonary disease, unspecified; Z90.89 Acquired absence of other organs; W01.0XXA Fall on same level from slipping, tripping and stumbling without subsequent striking against object, initial encounter; Y93.89 Activity, other specified; Y92.89 Other specified places as the place of occurrence of the external cause; Y99.8 Other external cause status
CPT/HCPCS: 71045; 72131; 94640; 99284; J7512

== ENCOUNTER 2020-06-01 07:08 | Inpatient (IN) | payer MEDICAID ==
[~2020-06-01] VITALS: Ht 190.5 cm; Wt 79.5 kg
--- NOTE | 2020-06-01 07:08 | NUR ---
BIB EMS FROM THE [facility] THAT STARTED AT 0200 LAST NIGHT. HX OF COPD. REPORTS SWELLING TO LEFT HAND AND LEFT LEG. ROOM AIR 86% PER EMS, WAS GIVEN ALBUTEROL AND A DUONEB, SPO2 AT 99%. LLQ ABD PAIN WITH N/V. PT IN BED IN GOWN WITH CONT [employer], SPO2, BPQ 30 MIN, SIDE RAILS UP X2, CALL LIGHT IN REACH. 20g IV STARTED IN LEFT WRIST, LABS DRAWN AND SENT TO LAB, PT ON 2L NG AT 99%. WENT OVER POC FROM ORDER LIST, AGREES TO PLAN. CALL LIGHT IN REACH.
--- NOTE | 2020-06-01 07:09 | NUR ---
PT PUT IN DROPLET PLUS PRECAUTIONS
[2020-06-01] MEDS ORDERED: ALBUTEROL/IPRATROPIUM 2.5MG/0.5MG, 3 ML ONE ×2 (07:27→07:49)
[2020-06-01] MEDS: ALBUTEROL/IPRATROPIUM 2.5MG/0.5MG, 3 ML NPPB SCH ×2 (07:29→08:09)
[2020-06-01] MEDS ORDERED: SODIUM CHLORIDE FLUSH 10ML SYR IVF ONE (07:30)
--- NOTE | 2020-06-01 07:37 | NUR ---
PT REPORTS FEELING BETTER AFTER NEB, BREATHING IS LESS LABORED. PT STILL BREATHING 24PER/MIN.
--- NOTE | 2020-06-01 07:45 | NUR ---
US IN ROOM (VERA)
--- NOTE | 2020-06-01 08:08 | NUR ---
MD GORDON AT BEDSIDE, US DONE. 2ND DUONEB STARTED
[2020-06-01] MEDS ORDERED: DILTIAZEM 5 MG/ML, 5ML ONE (08:10)
--- NOTE | 2020-06-01 08:16 | NUR ---
LAB IN ROOM FOR REDRAW
--- NOTE | 2020-06-01 08:17 | NUR ---
PT DONE WITH 2ND DUONEB, BREATHING HAS IMPROVED, PT OFF NC AT 98% ON ROOM AIR.
[2020-06-01] MEDS ORDERED: methylPREDNISolone SOD SUCC 125 MG/2 ML ONE ×2 (08:19→11:46)
--- NOTE | 2020-06-01 08:22 | NUR ---
PT TO XRAY
[2020-06-01 08:23] LABS: BASOPHILS # (AUTO) 0.05 x10^3/uL (0-0.1); BASOPHILS % (AUTO) 1 % (0-1); EOSINOPHILS # (AUTO) 0.04 x10^3/uL (0-0.4); EOSINOPHILS % (AUTO) 1 % (1-7); LYMPHOCYTES % (AUTO) 12 % (22-44); MD NO; MEAN CORPUSCULAR HGB CONC 31.9 g/dL (33.2-36.2); MEAN PLATELET VOLUME 6.9 fL (7.4-10.4); MONOCYTES # (AUTO) 0.47 x10^3/uL (0.2-0.8); MONOCYTES % (AUTO) 6 % (2-9); NEUTROPHILS % (AUTO) 81 % (42-75); PLATELET COUNT 183 x10^3/uL (130-400); RED BLOOD COUNT 3.13 x10^6/uL (4.38-5.82); RED CELL DISTRIBUTION WIDTH 20.4 % (9.4-14.8)
[2020-06-01] MEDS ORDERED: DILTIAZEM 5 MG/ML, 5ML IVPush ONE (08:30)
[2020-06-01] MEDS ORDERED: methylPREDNISolone SOD SUCC 125 MG/2 ML IV ONE (08:30)
[2020-06-01 08:35] LABS: ALANINE AMINOTRANSFERASE 30 U/L (12-78); ALBUMIN 2.9 g/dL (3.4-5.0); ANION GAP 8 mmol/L (5-15); CALCIUM 8.3 mg/dL (8.5-10.1); CHLORIDE 103 mmol/L (98-107)
[2020-06-01 08:36] LABS: INTERNATIONAL NORMALIZED RATIO 0.93 (0.93-1.1); PROTHROMBIN TIME 9.8 Seconds (9.6-11.5)
[2020-06-01 08:39] LABS: ALKALINE PHOSPHATASE 73 U/L (45-117); BILIRUBIN,TOTAL 0.3 mg/dL (0.2-1.0); CREATININE 0.53 mg/dL (0.7-1.3); TOTAL PROTEIN 5.3 g/dL (6.4-8.2); TROPONIN I < 0.015 ng/mL (0.000-0.045)
--- NOTE | 2020-06-01 09:01 | NUR ---
PT BACK FROM XRAY SPO2 77% PT PUT ON 4L NC NOW AT 94%. NOTIFIED
--- NOTE | 2020-06-01 09:35 | NUR ---
PT TRYED TO GET A URINE, COULD NOT AT THIS TIME, WENT FOR CTA.
[2020-06-01] MEDS ORDERED: OMNIPAQUE 350 MG/ML, 75ML BOTTLE ONE (09:49)
--- NOTE | 2020-06-01 10:29 | NUR ---
PT BACK FROM CT. PT TRYED TO GET A URINE, COULD NOT AT THIS TIME.
[2020-06-01] MEDS ORDERED: SODIUM CHLORIDE FLUSH 10ML SYR IVF PRN (11:00)
[2020-06-01] MEDS ORDERED: ACETAMINOPHEN 325 MG TABLET PO PRN (11:30)
[2020-06-01] MEDS ORDERED: ENOXAPARIN 40 MG/0.4 ML ONE (11:46)
[2020-06-01] MEDS ORDERED: NICOTINE 14MG/24 HR PATCH.TD24 ONE (11:47)
[2020-06-01] MEDS ORDERED: DOXYCYCLINE 100MG TABLET ONE (11:47)
[2020-06-01] MEDS: DOXYCYCLINE 100MG TABLET PO SCH ×2 (11:50→21:06)
[2020-06-01] MEDS: ENOXAPARIN 40 MG/0.4 ML SQ SCH (11:50)
[2020-06-01] MEDS: methylPREDNISolone SOD SUCC 125 MG/2 ML IVPush SCH ×3 (11:50→23:30)
[2020-06-01] MEDS: NICOTINE 14MG/24 HR PATCH.TD24 TD SCH (11:51)
[2020-06-01 11:54] LABS: % IRON SATURATION 53 % (20-55); IRON LEVEL 137 mcg/dL (65-175); TOTAL IRON BINDING CAPACITY 259 mcg/dL (250-450)
--- NOTE | 2020-06-01 12:12 | NUR ---
TASK RN. REPORT GIVEN TO MADHAVI LUNA. PT OK TO TRANSFER TO FLOOR.
[2020-06-01 12:44] LABS: MICROSCOPIC NOT IND
--- NOTE | 2020-06-01 12:48 | NUR ---
PT BACK FROM CT
[2020-06-01] MEDS ORDERED: THIAMINE 200 MG in SODIUM CHLORIDE 0.9% 50 ML IV ONE (13:00)
[2020-06-01 13:27] VITALS: BP 179/114
[2020-06-01] MEDS: POTASSIUM CHLORIDE 20 MEQ, MAGNESIUM SULFATE 1 GM, FOLIC ACID 1 MG, THIAMINE 200 MG, MV... IV SCH (14:02)
[2020-06-01] MEDS: FOLIC ACID 1 MG TABLET PO SCH (14:02)
[2020-06-01 14:19] VITALS: BP 160/100
[2020-06-01] MEDS: LISINOPRIL 40 MG TABLET PO SCH (14:52)
[2020-06-01] MEDS: ALBUTEROL-IPRATROPIUM MDI INH INH SCH ×2 (17:45→21:06)
[2020-06-01] MEDS: OMEPRAZOLE 20 MG CAPSULE.DR PO SCH (17:45)
[2020-06-01 19:30] VITALS: BP 171/105
[2020-06-02 00:15] VITALS: BP 155/91
[2020-06-02] MEDS: OMEPRAZOLE 20 MG CAPSULE.DR PO SCH ×2 (05:48→17:26)
[2020-06-02] MEDS: ALBUTEROL-IPRATROPIUM MDI INH INH SCH ×4 (05:48→20:36)
[2020-06-02] MEDS: methylPREDNISolone SOD SUCC 125 MG/2 ML IVPush SCH ×4 (05:48→23:30)
[2020-06-02 06:26] LABS: ALANINE AMINOTRANSFERASE 28 U/L (12-78); ALBUMIN 2.8 g/dL (3.4-5.0); ANION GAP 6 mmol/L (5-15); CALCIUM 8.6 mg/dL (8.5-10.1); CHLORIDE 101 mmol/L (98-107); CREATININE 0.62 mg/dL (0.7-1.3)
[2020-06-02 06:28] LABS: ALKALINE PHOSPHATASE 80 U/L (45-117); BILIRUBIN,TOTAL 0.4 mg/dL (0.2-1.0); TOTAL PROTEIN 5.2 g/dL (6.4-8.2)
[2020-06-02 06:30] LABS: BASOPHILS % (AUTO) 0 % (0-1); EOSINOPHILS # (AUTO) 0.01 x10^3/uL (0-0.4); EOSINOPHILS % (AUTO) 0 % (1-7); LYMPHOCYTES % (AUTO) 7 % (22-44); MD NO; MEAN CORPUSCULAR HEMOGLOBIN 30.7 pg (27.5-34.5); MEAN CORPUSCULAR HGB CONC 32.8 g/dL (33.2-36.2); MEAN CORPUSCULAR VOLUME 93.7 fL (81-97); MEAN PLATELET VOLUME 7.6 fL (7.4-10.4); MONOCYTES # (AUTO) 0.14 x10^3/uL (0.2-0.8); MONOCYTES % (AUTO) 2 % (2-9); NEUTROPHILS # (AUTO) 5.13 x10^3/uL (1.8-6.8); NEUTROPHILS % (AUTO) 90 % (42-75); PLATELET COUNT 152 x10^3/uL (130-400); RED BLOOD COUNT 2.89 x10^6/uL (4.38-5.82); RED CELL DISTRIBUTION WIDTH 18.9 % (9.4-14.8)
[2020-06-02 07:38] VITALS: BP 157/98
[2020-06-02] MEDS: FOLIC ACID 1 MG TABLET PO SCH (08:59)
[2020-06-02] MEDS: DOXYCYCLINE 100MG TABLET PO SCH ×2 (08:59→20:36)
[2020-06-02] MEDS: LISINOPRIL 40 MG TABLET PO SCH (08:59)
[2020-06-02] MEDS ORDERED: LISINOPRIL 40 MG TABLET PO SCH (09:00)
[2020-06-02] MEDS: NICOTINE 14MG/24 HR PATCH.TD24 TD SCH (11:30)
[2020-06-02] MEDS: ENOXAPARIN 40 MG/0.4 ML SQ SCH (11:37)
[2020-06-02 12:11] VITALS: BP 155/100
[2020-06-02] MEDS: POTASSIUM CHLORIDE 20 MEQ, MAGNESIUM SULFATE 1 GM, FOLIC ACID 1 MG, THIAMINE 200 MG, MV... IV SCH (14:18)
[2020-06-02 15:29] LABS: AMPHETAMINE SCREEN, URINE Negative (Negative); BARBITURATE SCREEN, URINE Negative (Negative); BENZODIAZEPINE SCREEN, URINE Negative (Negative); CANNABINOID SCREEN, URINE Negative (Negative); COCAINE SCREEN, URINE Negative (Negative); METHADONE SCREEN, URINE Negative (Negative); OPIATE SCREEN, URINE Negative (Negative)
[2020-06-02 19:42] VITALS: BP 142/89
[2020-06-03 00:50] VITALS: BP 156/92
[2020-06-03] MEDS: methylPREDNISolone SOD SUCC 125 MG/2 ML IVPush SCH ×3 (05:29→20:38)
[2020-06-03] MEDS: ALBUTEROL-IPRATROPIUM MDI INH INH SCH ×5 (05:29→20:38)
[2020-06-03] MEDS: OMEPRAZOLE 20 MG CAPSULE.DR PO SCH ×2 (05:29→18:12)
[2020-06-03 07:43] VITALS: BP 152/102
[2020-06-03 08:44] LABS: MEAN CORPUSCULAR HGB CONC 31.8 g/dL (33.2-36.2); MEAN CORPUSCULAR VOLUME 94.5 fL (81-97); MEAN PLATELET VOLUME 6.8 fL (7.4-10.4); PLATELET COUNT 155 x10^3/uL (130-400); RED BLOOD COUNT 3.05 x10^6/uL (4.38-5.82); RED CELL DISTRIBUTION WIDTH 19.8 % (9.4-14.8)
[2020-06-03 09:16] LABS: BASOPHILS # (AUTO) 0.02 x10^3/uL (0-0.1); BASOPHILS % (AUTO) 0 % (0-1); EOSINOPHILS % (AUTO) 0 % (1-7); LYMPHOCYTES # (AUTO) 0.41 x10^3/uL (1-3.4); LYMPHOCYTES % (AUTO) 5 % (22-44); MD SCAN; MONOCYTES # (AUTO) 0.35 x10^3/uL (0.2-0.8); MONOCYTES % (AUTO) 4 % (2-9); NEUTROPHILS # (AUTO) 8.12 x10^3/uL (1.8-6.8); NEUTROPHILS % (AUTO) 91 % (42-75)
[2020-06-03] MEDS: FOLIC ACID 1 MG TABLET PO SCH (09:27)
[2020-06-03] MEDS: LISINOPRIL 40 MG TABLET PO SCH (09:27)
[2020-06-03] MEDS: DOXYCYCLINE 100MG TABLET PO SCH ×2 (09:27→20:38)
[2020-06-03] MEDS: NICOTINE 14MG/24 HR PATCH.TD24 TD SCH (11:30)
[2020-06-03 14:03] VITALS: BP 145/92
[2020-06-03] MEDS: ENOXAPARIN 40 MG/0.4 ML SQ SCH (14:33)
[2020-06-03] MEDS: POTASSIUM CHLORIDE 20 MEQ, MAGNESIUM SULFATE 1 GM, FOLIC ACID 1 MG, THIAMINE 200 MG, MV... IV SCH (14:34)
[2020-06-03 19:27] VITALS: BP 170/108
[2020-06-04] MEDS: methylPREDNISolone SOD SUCC 125 MG/2 ML IVPush SCH ×3 (01:40→14:08)
[2020-06-04 01:51] VITALS: BP 164/95
[2020-06-04] MEDS: ALBUTEROL-IPRATROPIUM MDI INH INH SCH ×2 (05:23→14:06)
[2020-06-04] MEDS: OMEPRAZOLE 20 MG CAPSULE.DR PO SCH (05:23)
[2020-06-04 07:56] VITALS: BP 159/112
[2020-06-04] MEDS: LISINOPRIL 40 MG TABLET PO SCH (08:26)
[2020-06-04] MEDS: DOXYCYCLINE 100MG TABLET PO SCH (08:27)
[2020-06-04] MEDS: FOLIC ACID 1 MG TABLET PO SCH (08:27)
[2020-06-04] MEDS ORDERED: MULT-449 PO (11:05)
[2020-06-04] MEDS ORDERED: PRED20TA PO (11:05)
[2020-06-04] MEDS: NICOTINE 14MG/24 HR PATCH.TD24 TD SCH (12:17)
[2020-06-04] MEDS: ENOXAPARIN 40 MG/0.4 ML SQ SCH (12:17)
[2020-06-04] MEDS: POTASSIUM CHLORIDE 20 MEQ, MAGNESIUM SULFATE 1 GM, FOLIC ACID 1 MG, THIAMINE 200 MG, MV... IV SCH (13:00)
== END 2020-06-04 14:21 | disposition home or self-care (01) | DRG 189 ==
LOC: ED 07:15 → EDIP 10:35 → 4WST 13:20 → 3N 06-02 15:55
PROVIDERS: ADMIT Internal Medicine; ATTEND Internal Medicine
DX: J96.01 Acute respiratory failure with hypoxia (principal); E87.1 Hypo-osmolality and hyponatremia; J44.1 Chronic obstructive pulmonary disease with (acute) exacerbation; D63.8 Anemia in other chronic diseases classified elsewhere; F10.10 Alcohol abuse, uncomplicated; F17.200 Nicotine dependence, unspecified, uncomplicated; I10 Essential (primary) hypertension; I48.91 Unspecified atrial fibrillation; K29.80 Duodenitis without bleeding; Z59.0 Homelessness; Z79.01 Long term (current) use of anticoagulants; Z91.14 Patient's other noncompliance with medication regimen
CPT/HCPCS: 36415; 71275; 74022; 74176; 80053; 80307; 81003; 83540; 83550; 83880; 84484; 85025; 85379; 85610; 85730; 93005; 93970; G0378; J1650; J3411; J3475; J3480; J7070; Q9967; J2930

== ENCOUNTER 2020-06-10 21:17 | Inpatient (IN) | payer MEDICAID ==
[~2020-06-10] VITALS: Ht 190.5 cm; Wt 76.4 kg
[2020-06-10] MEDS ORDERED: ALBUTEROL/IPRATROPIUM 2.5MG/0.5MG, 3 ML NPPB ONE (21:30)
[2020-06-10] MEDS ORDERED: ALBUTEROL/IPRATROPIUM 2.5MG/0.5MG, 3 ML ONE (21:43)
[2020-06-10 22:27] LABS: ALBUMIN 2.9 g/dL (3.4-5.0); ANION GAP 15 mmol/L (5-15); CHLORIDE 100 mmol/L (98-107); CREATININE 1.01 mg/dL (0.7-1.3); MEAN CORPUSCULAR HEMOGLOBIN 31.5 pg (27.5-34.5); MEAN CORPUSCULAR HGB CONC 32.6 g/dL (33.2-36.2); MEAN CORPUSCULAR VOLUME 96.6 fL (81-97); MEAN PLATELET VOLUME 8.6 fL (7.4-10.4); PLATELET COUNT 207 x10^3/uL (130-400); RED BLOOD COUNT 2.58 x10^6/uL (4.38-5.82); RED CELL DISTRIBUTION WIDTH 23.5 % (9.4-14.8)
[2020-06-10 22:30] LABS: TROPONIN I 0.037 ng/mL (0.000-0.045)
--- NOTE | 2020-06-10 22:52 | NUR ---
Pt report from Gabriela everett. This rn to assume care of pt. Lab at bedside for cultures.
[2020-06-10] MEDS ORDERED: CEFTRIAXONE PMX 1GM/50ML 50 ML ONE (22:59)
[2020-06-10] MEDS ORDERED: AZITHROMYCIN 500 MG in SODIUM CHLORIDE 0.9% 250 ML IV ONE (23:00)
[2020-06-10] MEDS ORDERED: CEFTRIAXONE PMX 1GM/50ML 50 ML IV ONE (23:00)
[2020-06-10 23:03] LABS: INTERNATIONAL NORMALIZED RATIO 1.25 (0.93-1.1); PROTHROMBIN TIME 12.9 Seconds (9.6-11.5)
[2020-06-10 23:15] LABS: MD YES
[2020-06-10 23:18] LABS: ANISOCYTOSIS 1+; BAND#(MANUAL) 0.54 x10^3/uL; BANDS%(MANUAL) 2 % (0-7); LYMPH#(MANUAL) 0.54 x10^3/uL (1-3.4); LYMPHS% (MANUAL) 2 % (22-44); METAMYELOCYTES# (MANUAL) 0.54 x10^3/uL (0-0); METAMYELOCYTES% (MANUAL) 2 % (0-1); MONOS#(MANUAL) 1.08 x10^3/uL (0.3-2.7); MONOS% (MANUAL) 4 % (2-9); MYELOCYTES# (MANUAL) 0.81 x10^3/uL (0-0); MYELOCYTES% (MANUAL) 3 % (0-0); NRBC % (MANUAL) 2 % (0-1); POLYCHROMASIA 1+; SEGS% (MANUAL) 87 % (42-75)
[2020-06-10 23:19] LABS: TEAR DROPS 1+
[2020-06-10 23:20] LABS: <PLATELET ESTIMATE> ADEQUATE; <PLT MORPHOLOGY> NORMAL PLT MORPH
[2020-06-10] MEDS ORDERED: CARVEDILOL 12.5 MG TABLET ONE (23:22)
[2020-06-10] MEDS ORDERED: DILTIAZEM 5 MG/ML, 5ML ONE (23:22)
[2020-06-10] MEDS ORDERED: DILTIAZEM 5 MG/ML, 5ML IVPush ONE (23:30)
[2020-06-10] MEDS ORDERED: CARVEDILOL 12.5 MG TABLET PO ONE (23:30)
--- NOTE | 2020-06-11 00:50 | NUR ---
Break RN: assumed care of pt on behalf of rosendo LUNA fo lunch break only. pt currently sleeping. no apparent distress. no family at bedside
[2020-06-11 01:34] VITALS: BP 146/92
[2020-06-11] MEDS: NICOTINE 7 MG/24 HR PATCH.TD24 TD SCH ×2 (01:58→21:08)
[2020-06-11] MEDS: methylPREDNISolone SOD SUCC 40 MG/ML IVPush SCH ×4 (01:58→21:08)
[2020-06-11] MEDS ORDERED: LIDODERM 5% PATCH TD PRN (02:00)
[2020-06-11] MEDS ORDERED: morphine SULFATE 10 MG/ML, 1ML IVPush PRN (02:00)
[2020-06-11] MEDS ORDERED: LABETALOL 5MG/ML, 20ML IVPush PRN (02:00)
[2020-06-11] MEDS ORDERED: DOCUSATE 100 MG CAPSULE PO PRN (02:00)
[2020-06-11] MEDS: CARVEDILOL 12.5 MG TABLET PO SCH ×2 (06:06→17:05)
[2020-06-11 06:53] VITALS: BP 165/97
[2020-06-11] MEDS: FLUTICASONE/VILANTEROL 100-25MCG/INH INH SCH (08:45)
[2020-06-11] MEDS: LISINOPRIL 40 MG TABLET PO SCH (08:45)
[2020-06-11] MEDS: ALBUTEROL-IPRATROPIUM MDI INH INH SCH ×4 (08:45→21:08)
[2020-06-11 13:20] VITALS: BP 159/95
[2020-06-11] MEDS: CEFTRIAXONE PMX 1GM/50ML 50 ML IV SCH (15:09)
[2020-06-11] MEDS: ENOXAPARIN 40 MG/0.4 ML SQ SCH (15:10)
[2020-06-11 15:17] LABS: ANION GAP 6 mmol/L (5-15); CALCIUM 8.8 mg/dL (8.5-10.1); CHLORIDE 100 mmol/L (98-107); TOTAL IRON BINDING CAPACITY 255 mcg/dL (250-450)
[2020-06-11 15:27] LABS: MEAN CORPUSCULAR HEMOGLOBIN 31.2 pg (27.5-34.5); MEAN CORPUSCULAR HGB CONC 32.2 g/dL (33.2-36.2); MEAN CORPUSCULAR VOLUME 96.6 fL (81-97); MEAN PLATELET VOLUME 8.1 fL (7.4-10.4); PLATELET COUNT 189 x10^3/uL (130-400); RED BLOOD COUNT 2.29 x10^6/uL (4.38-5.82); RED CELL DISTRIBUTION WIDTH 22.1 % (9.4-14.8)
[2020-06-11 15:38] LABS: MD YES
[2020-06-11 15:42] LABS: BAND#(MANUAL) 0.39 x10^3/uL; BANDS%(MANUAL) 3 % (0-7); LYMPH#(MANUAL) 0.66 x10^3/uL (1-3.4); LYMPHS% (MANUAL) 5 % (22-44); METAMYELOCYTES# (MANUAL) 0.13 x10^3/uL (0-0); METAMYELOCYTES% (MANUAL) 1 % (0-1); MONOS#(MANUAL) 0.26 x10^3/uL (0.3-2.7); MONOS% (MANUAL) 2 % (2-9); SEG#(MANUAL) 11.66 x10^3/uL (1.8-6.8); SEGS% (MANUAL) 89 % (42-75)
[2020-06-11 15:43] LABS: SCHISTOCYTES 1+; TEAR DROPS 1+
[2020-06-11 15:44] LABS: ANISOCYTOSIS 1+; POLYCHROMASIA 1+
[2020-06-11 15:45] LABS: % IRON SATURATION 7 % (20-55); <PLATELET ESTIMATE> ADEQUATE; <PLT MORPHOLOGY> NORMAL PLT MORPH; CREATININE 0.63 mg/dL (0.7-1.3); IRON LEVEL 19 mcg/dL (65-175)
[2020-06-11 17:40] LABS: ALBUMIN 2.6 g/dL (3.4-5.0); BILIRUBIN, DIRECT 0.1 mg/dL (0.1-0.2); C-REACTIVE PROTEIN, QUANT 0.79 mg/dL (0.02-0.49)
[2020-06-11 17:43] LABS: D-DIMER 0.64 ug/mlFEU (0.00-0.52)
[2020-06-11 17:44] LABS: BILIRUBIN,INDIRECT 0.2 mg/dL (0.0-2.0); BILIRUBIN,TOTAL 0.3 mg/dL (0.2-1.0)
[2020-06-11 17:45] LABS: ABSOLUTE RETICS # 0.159 x10^6/uL (0.5-1.5); RED BLOOD COUNT 2.41 x10^6/uL (4.38-5.82); RETICULOCYTE COUNT % 6.58 % (0.5-1.5)
[2020-06-11] MEDS: AZITHROMYCIN 500 MG in SODIUM CHLORIDE 0.9% 250 ML IV SCH (18:34)
[2020-06-11] MEDS ORDERED: CEFTRIAXONE PMX 1GM/50ML 50 ML IV SCH (19:00)
[2020-06-11] MEDS ORDERED: LORazepam 0.5MG TABLET PO PRN (19:30)
[2020-06-11] MEDS ORDERED: LORazepam 1MG TABLET PO PRN ×2 (19:30)
[2020-06-11] MEDS: MELATONIN 5 MG TABLET PO PRN (21:08)
[2020-06-11 21:09] VITALS: BP 160/90
[2020-06-12 01:11] VITALS: BP 159/88
[2020-06-12] MEDS: methylPREDNISolone SOD SUCC 40 MG/ML IVPush SCH ×4 (02:58→20:23)
[2020-06-12] MEDS: PANTOPRAZOLE 40MG TABLET PO SCH (05:13)
[2020-06-12] MEDS: CARVEDILOL 12.5 MG TABLET PO SCH ×2 (05:13→18:10)
[2020-06-12] MEDS: ALBUTEROL-IPRATROPIUM MDI INH INH SCH ×4 (05:14→20:24)
[2020-06-12 05:23] LABS: MEAN CORPUSCULAR HGB CONC 32.2 g/dL (33.2-36.2); MEAN CORPUSCULAR VOLUME 96.2 fL (81-97); MEAN PLATELET VOLUME 8.5 fL (7.4-10.4); PLATELET COUNT 193 x10^3/uL (130-400); RED BLOOD COUNT 2.34 x10^6/uL (4.38-5.82); RED CELL DISTRIBUTION WIDTH 22.7 % (9.4-14.8)
[2020-06-12 05:31] LABS: ANION GAP 5 mmol/L (5-15); CALCIUM 8.8 mg/dL (8.5-10.1); CHLORIDE 101 mmol/L (98-107); CREATININE 0.52 mg/dL (0.7-1.3)
[2020-06-12 05:54] LABS: ANISOCYTOSIS 1+; BASOPHILS % (AUTO) 0 % (0-1); EOSINOPHILS % (AUTO) 0 % (1-7); LYMPHOCYTES # (AUTO) 0.46 x10^3/uL (1-3.4); LYMPHOCYTES % (AUTO) 4 % (22-44); MD MORPH REVIEW ONLY; MONOCYTES # (AUTO) 0.25 x10^3/uL (0.2-0.8); MONOCYTES % (AUTO) 2 % (2-9); NEUTROPHILS # (AUTO) 11.99 x10^3/uL (1.8-6.8); NEUTROPHILS % (AUTO) 94 % (42-75); POLYCHROMASIA 1+; SCHISTOCYTES 1+; TEAR DROPS 1+
[2020-06-12 05:55] LABS: <PLATELET ESTIMATE> ADEQUATE; <PLT MORPHOLOGY> NORMAL PLT MORPH; OVALOCYTES 1+
[2020-06-12 06:34] VITALS: BP 182/94
[2020-06-12 07:05] LABS: OCCULT BLOOD POSITIVE (NEGATIVE)
[2020-06-12] MEDS: MULTIVITAMINS/MINERALS TABLET PO SCH (09:31)
[2020-06-12] MEDS: LISINOPRIL 40 MG TABLET PO SCH (09:31)
[2020-06-12] MEDS: FLUTICASONE/VILANTEROL 100-25MCG/INH INH SCH (09:31)
[2020-06-12 12:11] VITALS: BP 170/79
[2020-06-12] MEDS ORDERED: methylPREDNISolone SOD SUCC 125 MG/2 ML ONE (14:36)
[2020-06-12] MEDS: ENOXAPARIN 40 MG/0.4 ML SQ SCH (14:42)
[2020-06-12] MEDS: CEFTRIAXONE PMX 1GM/50ML 50 ML IV SCH (14:42)
[2020-06-12 16:18] VITALS: BP 173/98
[2020-06-12 16:50] LABS: MEAN PLATELET VOLUME 8.3 fL (7.4-10.4); PLATELET COUNT 207 x10^3/uL (130-400); RED CELL DISTRIBUTION WIDTH 22.3 % (9.4-14.8)
[2020-06-12 17:22] LABS: ANISOCYTOSIS 1+; BASOPHILS % (AUTO) 0 % (0-1); EOSINOPHILS # (AUTO) 0.22 x10^3/uL (0-0.4); EOSINOPHILS % (AUTO) 2 % (1-7); LYMPHOCYTES # (AUTO) 0.31 x10^3/uL (1-3.4); LYMPHOCYTES % (AUTO) 3 % (22-44); MD MORPH REVIEW ONLY; MONOCYTES # (AUTO) 0.42 x10^3/uL (0.2-0.8); MONOCYTES % (AUTO) 4 % (2-9); NEUTROPHILS # (AUTO) 10.77 x10^3/uL (1.8-6.8); NEUTROPHILS % (AUTO) 92 % (42-75)
[2020-06-12 17:23] LABS: OVALOCYTES 1+; POLYCHROMASIA 1+; TEAR DROPS 1+
[2020-06-12 17:25] LABS: SCHISTOCYTES 1+
[2020-06-12 17:26] LABS: <PLATELET ESTIMATE> ADEQUATE; <PLT MORPHOLOGY> NORMAL PLT MORPH
[2020-06-12] MEDS: AZITHROMYCIN 500 MG in SODIUM CHLORIDE 0.9% 250 ML IV SCH (18:10)
[2020-06-12 18:11] VITALS: BP 161/82
[2020-06-12 19:28] LABS: OCCULT BLOOD POSITIVE (NEGATIVE)
[2020-06-12 20:21] VITALS: BP 134/78
[2020-06-13] MEDS: NICOTINE 7 MG/24 HR PATCH.TD24 TD SCH (01:46)
[2020-06-13 01:49] VITALS: BP 163/100
[2020-06-13] MEDS: methylPREDNISolone SOD SUCC 40 MG/ML IVPush SCH ×3 (02:52→18:33)
[2020-06-13 05:55] VITALS: BP 162/98
[2020-06-13] MEDS: ALBUTEROL-IPRATROPIUM MDI INH INH SCH ×4 (05:57→21:33)
[2020-06-13] MEDS: PANTOPRAZOLE 40MG TABLET PO SCH ×3 (05:57→21:33)
[2020-06-13] MEDS: CARVEDILOL 12.5 MG TABLET PO SCH ×2 (05:57→17:22)
[2020-06-13 07:01] VITALS: BP 161/95
[2020-06-13] MEDS: MULTIVITAMINS/MINERALS TABLET PO SCH (08:49)
[2020-06-13] MEDS: LISINOPRIL 40 MG TABLET PO SCH (08:49)
[2020-06-13] MEDS: FLUTICASONE/VILANTEROL 100-25MCG/INH INH SCH (08:50)
[2020-06-13 09:28] LABS: ANION GAP 6 mmol/L (5-15); CALCIUM 8.5 mg/dL (8.5-10.1); CHLORIDE 99 mmol/L (98-107); CREATININE 0.62 mg/dL (0.7-1.3)
[2020-06-13 09:33] LABS: MEAN CORPUSCULAR HEMOGLOBIN 30.9 pg (27.5-34.5); MEAN CORPUSCULAR HGB CONC 32.1 g/dL (33.2-36.2); MEAN CORPUSCULAR VOLUME 96.3 fL (81-97); MEAN PLATELET VOLUME 8.1 fL (7.4-10.4); PLATELET COUNT 226 x10^3/uL (130-400); RED BLOOD COUNT 2.48 x10^6/uL (4.38-5.82)
[2020-06-13 09:43] LABS: BASOPHILS # (AUTO) 0.04 x10^3/uL (0-0.1); BASOPHILS % (AUTO) 0 % (0-1); EOSINOPHILS % (AUTO) 0 % (1-7); LYMPHOCYTES # (AUTO) 0.39 x10^3/uL (1-3.4); LYMPHOCYTES % (AUTO) 3 % (22-44); MD SCAN; MONOCYTES # (AUTO) 0.24 x10^3/uL (0.2-0.8); MONOCYTES % (AUTO) 2 % (2-9); NEUTROPHILS # (AUTO) 13.65 x10^3/uL (1.8-6.8); NEUTROPHILS % (AUTO) 95 % (42-75)
[2020-06-13 12:57] VITALS: BP 152/95
[2020-06-13] MEDS: CEFTRIAXONE PMX 1GM/50ML 50 ML IV SCH (14:08)
[2020-06-13] MEDS: ENOXAPARIN 40 MG/0.4 ML SQ SCH (14:08)
[2020-06-13] MEDS: AZITHROMYCIN 500 MG in SODIUM CHLORIDE 0.9% 250 ML IV SCH (17:22)
[2020-06-13 19:53] VITALS: BP 148/87
[2020-06-14] VITALS (11 sets, daily range): BP systolic 143–176; BP diastolic 81–109
[2020-06-14] MEDS: NICOTINE 7 MG/24 HR PATCH.TD24 TD SCH (01:17)
[2020-06-14] MEDS: methylPREDNISolone SOD SUCC 40 MG/ML IVPush SCH ×2 (02:35→11:03)
[2020-06-14 05:31] LABS: MEAN CORPUSCULAR HEMOGLOBIN 30.6 pg (27.5-34.5); MEAN CORPUSCULAR VOLUME 95.6 fL (81-97); MEAN PLATELET VOLUME 8.3 fL (7.4-10.4); PLATELET COUNT 221 x10^3/uL (130-400); RED BLOOD COUNT 2.49 x10^6/uL (4.38-5.82); RED CELL DISTRIBUTION WIDTH 21.6 % (9.4-14.8)
[2020-06-14 05:44] LABS: CHLORIDE 101 mmol/L (98-107)
[2020-06-14 05:49] LABS: ANION GAP 7 mmol/L (5-15); CALCIUM 8.4 mg/dL (8.5-10.1); CREATININE 0.53 mg/dL (0.7-1.3)
[2020-06-14] MEDS: CARVEDILOL 12.5 MG TABLET PO SCH ×2 (05:57→17:35)
[2020-06-14] MEDS: ALBUTEROL-IPRATROPIUM MDI INH INH SCH ×4 (05:57→22:03)
[2020-06-14 06:13] LABS: BASOPHILS % (AUTO) 0 % (0-1); EOSINOPHILS % (AUTO) 0 % (1-7); LYMPHOCYTES # (AUTO) 0.34 x10^3/uL (1-3.4); LYMPHOCYTES % (AUTO) 2 % (22-44); MD SCAN; MONOCYTES # (AUTO) 0.38 x10^3/uL (0.2-0.8); MONOCYTES % (AUTO) 3 % (2-9); NEUTROPHILS # (AUTO) 13.79 x10^3/uL (1.8-6.8); NEUTROPHILS % (AUTO) 95 % (42-75)
[2020-06-14] MEDS: LISINOPRIL 40 MG TABLET PO SCH (09:56)
[2020-06-14] MEDS: PANTOPRAZOLE 40MG TABLET PO SCH ×2 (09:56→22:03)
[2020-06-14] MEDS: FLUTICASONE/VILANTEROL 100-25MCG/INH INH SCH (10:06)
[2020-06-14] MEDS ORDERED: PROPOFOL 10 MG/ML, 50ML ONE (11:59)
[2020-06-14] MEDS ORDERED: LABETALOL 5MG/ML, 20ML ONE (12:45)
[2020-06-14] MEDS ORDERED: hydrALAzine 20 MG/ML, 1ML IV PRN (13:00)
[2020-06-14] MEDS ORDERED: FENTANYL PF 100 MCG/2ML IV PRN (13:00)
[2020-06-14] MEDS ORDERED: LABETALOL 5MG/ML, 20ML IV PRN (13:00)
[2020-06-14] MEDS ORDERED: FENTANYL PF 100 MCG/2ML ONE (13:03)
[2020-06-14] MEDS: CEFTRIAXONE PMX 1GM/50ML 50 ML IV SCH (14:32)
[2020-06-14] MEDS: MULTIVITAMINS/MINERALS TABLET PO SCH (14:32)
[2020-06-14] MEDS: ENOXAPARIN 40 MG/0.4 ML SQ SCH (14:33)
[2020-06-14] MEDS ORDERED: FLUCONAZOLE 200 MG TABLET PO ONE (17:00)
[2020-06-14] MEDS: AZITHROMYCIN 500 MG in SODIUM CHLORIDE 0.9% 250 ML IV SCH (17:35)
[2020-06-14] MEDS: MELATONIN 5 MG TABLET PO PRN (22:03)
[2020-06-14] MEDS ORDERED: ACETAMINOPHEN 325 MG TABLET PO ONE (23:00)
[2020-06-14] MEDS ORDERED: DIPHENHYDRAMINE 12.5MG/5ML, 10ML UDC PO ONE (23:00)
[2020-06-14] MEDS: methylPREDNISolone SOD SUCC 125 MG/2 ML IVPush SCH (23:50)
[2020-06-15] VITALS (7 sets, daily range): BP systolic 148–166; BP diastolic 62–101
[2020-06-15] MEDS: NICOTINE 7 MG/24 HR PATCH.TD24 TD SCH (02:23)
[2020-06-15 04:05] LABS: MEAN CORPUSCULAR HEMOGLOBIN 30.6 pg (27.5-34.5); MEAN CORPUSCULAR HGB CONC 32.6 g/dL (33.2-36.2); MEAN CORPUSCULAR VOLUME 93.9 fL (81-97); MEAN PLATELET VOLUME 8.2 fL (7.4-10.4); PLATELET COUNT 228 x10^3/uL (130-400); RED BLOOD COUNT 3.11 x10^6/uL (4.38-5.82); RED CELL DISTRIBUTION WIDTH 20.9 % (9.4-14.8)
[2020-06-15 04:12] LABS: ANION GAP 8 mmol/L (5-15); CALCIUM 8.5 mg/dL (8.5-10.1); CHLORIDE 100 mmol/L (98-107); CREATININE 0.69 mg/dL (0.7-1.3)
[2020-06-15 04:40] LABS: BASOPHILS # (AUTO) 0.07 x10^3/uL (0-0.1); BASOPHILS % (AUTO) 0 % (0-1); EOSINOPHILS # (AUTO) 0.06 x10^3/uL (0-0.4); EOSINOPHILS % (AUTO) 0 % (1-7); LYMPHOCYTES # (AUTO) 0.22 x10^3/uL (1-3.4); LYMPHOCYTES % (AUTO) 1 % (22-44); MD SCAN; MONOCYTES # (AUTO) 0.28 x10^3/uL (0.2-0.8); MONOCYTES % (AUTO) 2 % (2-9); NEUTROPHILS # (AUTO) 15.03 x10^3/uL (1.8-6.8); NEUTROPHILS % (AUTO) 96 % (42-75)
[2020-06-15] MEDS: CARVEDILOL 12.5 MG TABLET PO SCH ×2 (05:43→17:38)
[2020-06-15] MEDS: ALBUTEROL-IPRATROPIUM MDI INH INH SCH ×4 (05:43→20:51)
[2020-06-15] MEDS: FLUTICASONE/VILANTEROL 100-25MCG/INH INH SCH (07:57)
[2020-06-15] MEDS: MULTIVITAMINS/MINERALS TABLET PO SCH (07:58)
[2020-06-15] MEDS: LISINOPRIL 40 MG TABLET PO SCH (07:58)
[2020-06-15] MEDS: PANTOPRAZOLE 40MG TABLET PO SCH ×2 (07:58→20:51)
[2020-06-15] MEDS: FLUCONAZOLE 100 MG TABLET PO SCH (07:58)
[2020-06-15] MEDS: methylPREDNISolone SOD SUCC 125 MG/2 ML IVPush SCH (11:20)
[2020-06-15] MEDS: ENOXAPARIN 40 MG/0.4 ML SQ SCH (15:42)
[2020-06-15] MEDS: MELATONIN 5 MG TABLET PO PRN (20:51)
[2020-06-16 01:20] VITALS: BP 140/93
[2020-06-16 05:24] VITALS: BP 157/105
[2020-06-16] MEDS: CARVEDILOL 12.5 MG TABLET PO SCH ×2 (05:26→18:02)
[2020-06-16] MEDS: ALBUTEROL-IPRATROPIUM MDI INH INH SCH ×4 (05:26→20:21)
[2020-06-16] MEDS: NICOTINE 7 MG/24 HR PATCH.TD24 TD SCH (05:28)
[2020-06-16 05:32] LABS: ANION GAP 7 mmol/L (5-15); CALCIUM 8.6 mg/dL (8.5-10.1); CHLORIDE 102 mmol/L (98-107); CREATININE 0.51 mg/dL (0.7-1.3)
[2020-06-16 05:38] LABS: MEAN CORPUSCULAR HEMOGLOBIN 30.5 pg (27.5-34.5); MEAN CORPUSCULAR HGB CONC 32.7 g/dL (33.2-36.2); MEAN CORPUSCULAR VOLUME 93.3 fL (81-97); MEAN PLATELET VOLUME 8.4 fL (7.4-10.4); PLATELET COUNT 214 x10^3/uL (130-400); RED CELL DISTRIBUTION WIDTH 20.8 % (9.4-14.8)
[2020-06-16 06:10] LABS: MD YES
[2020-06-16 06:11] LABS: BANDS%(MANUAL) 2 % (0-7); LYMPH#(MANUAL) 0.91 x10^3/uL (1-3.4); LYMPHS% (MANUAL) 6 % (22-44); METAMYELOCYTES# (MANUAL) 0.15 x10^3/uL (0-0); METAMYELOCYTES% (MANUAL) 1 % (0-1); MONOS#(MANUAL) 1.06 x10^3/uL (0.3-2.7); MONOS% (MANUAL) 7 % (2-9); SEG#(MANUAL) 12.68 x10^3/uL (1.8-6.8); SEGS% (MANUAL) 84 % (42-75)
[2020-06-16 06:12] LABS: ANISOCYTOSIS 1+; OVALOCYTES 1+; POLYCHROMASIA 1+; SCHISTOCYTES 1+; TEAR DROPS 1+
[2020-06-16 06:13] LABS: <PLATELET ESTIMATE> ADEQUATE; <PLT MORPHOLOGY> NORMAL PLT MORPH
[2020-06-16] MEDS: FLUTICASONE/VILANTEROL 100-25MCG/INH INH SCH (08:26)
[2020-06-16] MEDS: FLUCONAZOLE 100 MG TABLET PO SCH (08:26)
[2020-06-16] MEDS: LISINOPRIL 40 MG TABLET PO SCH (08:26)
[2020-06-16] MEDS: MULTIVITAMINS/MINERALS TABLET PO SCH (08:26)
[2020-06-16] MEDS: PANTOPRAZOLE 40MG TABLET PO SCH ×2 (08:26→20:21)
[2020-06-16 08:28] VITALS: BP 122/77
[2020-06-16 13:48] VITALS: BP 145/91
[2020-06-16] MEDS ORDERED: PRED20TA PO ×2 (13:50)
[2020-06-16] MEDS ORDERED: FLUT1AER INH (13:50)
[2020-06-16] MEDS ORDERED: FLUC100T PO ×2 (13:50)
[2020-06-16] MEDS ORDERED: OMEP20TA62 PO (13:55)
[2020-06-16] MEDS ORDERED: FLUC100T4 PO (13:56)
[2020-06-16] MEDS: ENOXAPARIN 40 MG/0.4 ML SQ SCH (15:55)
[2020-06-16 18:00] VITALS: BP 147/88
[2020-06-16 18:33] VITALS: BP 147/81
[2020-06-16] MEDS: MELATONIN 5 MG TABLET PO PRN (20:21)
[2020-06-17] MEDS: ACETAMINOPHEN 325 MG TABLET PO PRN ×2 (00:23→05:10)
[2020-06-17 00:57] VITALS: BP 140/87
[2020-06-17] MEDS: CARVEDILOL 12.5 MG TABLET PO SCH ×2 (05:10→18:12)
[2020-06-17] MEDS: ALBUTEROL-IPRATROPIUM MDI INH INH SCH ×3 (05:10→16:02)
[2020-06-17] MEDS: NICOTINE 7 MG/24 HR PATCH.TD24 TD SCH (05:10)
[2020-06-17 07:12] VITALS: BP 136/89
[2020-06-17] MEDS: FLUCONAZOLE 100 MG TABLET PO SCH (08:24)
[2020-06-17] MEDS: MULTIVITAMINS/MINERALS TABLET PO SCH (08:24)
[2020-06-17] MEDS: PANTOPRAZOLE 40MG TABLET PO SCH (08:24)
[2020-06-17] MEDS: FLUTICASONE/VILANTEROL 100-25MCG/INH INH SCH (08:24)
[2020-06-17] MEDS: LISINOPRIL 40 MG TABLET PO SCH (08:24)
[2020-06-17] MEDS ORDERED: KETOROLAC 30 MG/1 ML IVPush ONE (09:00)
[2020-06-17] MEDS ORDERED: LORazepam 1MG TABLET PO ONE (10:00)
[2020-06-17] MEDS ORDERED: GABAPENTIN 100 MG CAPSULE PO ONE (10:00)
[2020-06-17 13:36] VITALS: BP 142/95
[2020-06-17] MEDS ORDERED: GABAPENTIN 100 MG CAPSULE PO SCH (15:00)
[2020-06-17] MEDS ORDERED: GABA-826 PO (15:56)
[2020-06-17] MEDS ORDERED: FLUC100T PO (15:56)
[2020-06-17] MEDS: ENOXAPARIN 40 MG/0.4 ML SQ SCH (16:02)
[2020-06-17 18:12] VITALS: BP 160/102
== END 2020-06-17 18:52 | disposition home or self-care (01) | DRG 871 ==
LOC: ED 22:25 → EDIP 06-11 00:03 → 4EST 06-11 01:37 → 4WST 06-12 15:23
PROVIDERS: ADMIT Student in an Organized Health Care Education/Training Program; ATTEND Student in an Organized Health Care Education/Training Program
PROC: 30233N1 Transfusion of Nonautologous Red Blood Cells into Peripheral Vein, Percutaneous Approach (ICD-10-PCS; 2020-06-14)
PROC: 0DB58ZX Excision of Esophagus, Via Natural or Artificial Opening Endoscopic, Diagnostic (ICD-10-PCS; principal; 2020-06-14 11:30)
DX: A41.9 Sepsis, unspecified organism (principal); J96.01 Acute respiratory failure with hypoxia; J18.9 Pneumonia, unspecified organism; B37.81 Candidal esophagitis; D68.69 Other thrombophilia; E87.2 Acidosis; J44.0 Chronic obstructive pulmonary disease with (acute) lower respiratory infection; J44.1 Chronic obstructive pulmonary disease with (acute) exacerbation; I48.20 Chronic atrial fibrillation, unspecified; D50.9 Iron deficiency anemia, unspecified; E78.5 Hyperlipidemia, unspecified; E83.42 Hypomagnesemia; F03.90 Unspecified dementia, unspecified severity, without behavioral disturbance, psychotic disturbance, mood disturbance, and anxiety; F10.20 Alcohol dependence, uncomplicated; F17.210 Nicotine dependence, cigarettes, uncomplicated; I11.9 Hypertensive heart disease without heart failure; J20.9 Acute bronchitis, unspecified; K44.9 Diaphragmatic hernia without obstruction or gangrene; Z20.828 Contact with and (suspected) exposure to other viral communicable diseases; Z59.0 Homelessness; Z66 Do not resuscitate; Z79.01 Long term (current) use of anticoagulants; Z91.14 Patient's other noncompliance with medication regimen; Z91.19 Patient's noncompliance with other medical treatment and regimen; E87.6 Hypokalemia; Z91.013 Allergy to seafood; Z91.09 Other allergy status, other than to drugs and biological substances; Z90.49 Acquired absence of other specified parts of digestive tract
CPT/HCPCS: 36415; 36600; 71045; 80048; 80076; 82040; 82272; 82607; 82728; 82803; 83010; 83540; 83550; 83605; 83615; 83735; 83880; 84484; 85014; 85018; 85025; 85045; 85379; 85384; 85610; 86140; 86850; 86900; 86923; 87040; 87635; 88305; 93005; 93306; 96365; G0378; J0456; J0696; J1650; J1885; J2704; J3010; J2920; J2930; J7050; J7512; P9016

== ENCOUNTER 2020-07-21 16:56 | Inpatient (IN) | payer MEDICAID ==
[~2020-07-21] VITALS: Ht 190.5 cm; Wt 84.4 kg
[~2020-07-21 16:56] MED LIST changes: +FLUC100T PO; +FLUC100T4 PO; +GABA-826 PO; +OMEP20TA62 PO
--- NOTE | 2020-07-21 17:20 | NUR ---
THIS IS A 55 YO MALE COMING IN FOR INCREASED WORK OF BREATHING/SOB X2 HOURS. HX COPD. HOSPITALIZED AND DISCHARGED LAST WEEK FROM [facility] FOR COPD EXACERBATION. PURSED LIP BREATHING NOTED WITH ACCESSORY MUSCLE USE. PER [facility], PATIENT WAS AT 88% ON RA, GIVEN DUONEB AND ALBUTEROL BREATHING TX, CURRENTLY AT 99% ON 4L NC. EXPIRATORY WHEEZES NOTED IN BILAT BASES WITH DIMINISHED BREATH SOUNDS IN BILAT UPPER LOBES. ALL MONITORING IN PLACE, SINUS TACHYCARDIA ON MONITOR. CALL LIGHT IN REACH
[2020-07-21] MEDS ORDERED: methylPREDNISolone SOD SUCC 125 MG/2 ML ONE ×2 (17:21→19:29)
[2020-07-21] MEDS ORDERED: ALBUTEROL/IPRATROPIUM 2.5MG/0.5MG, 3 ML ONE (17:22)
[2020-07-21] MEDS ORDERED: ALBUTEROL/IPRATROPIUM 2.5MG/0.5MG, 3 ML NPPB ONE (17:30)
--- NOTE | 2020-07-21 17:40 | NUR ---
PATIENT MEDICATED PER EMAR, TOLERATED WELL. BREATHING TX IN PROGRESS
[2020-07-21 17:43] LABS: MEAN CORPUSCULAR HEMOGLOBIN 27.3 pg (27.5-34.5); MEAN CORPUSCULAR HGB CONC 31.3 g/dL (33.2-36.2); MEAN PLATELET VOLUME 7.2 fL (7.4-10.4); PLATELET COUNT 556 x10^3/uL (130-400); RED BLOOD COUNT 3.32 x10^6/uL (4.38-5.82); RED CELL DISTRIBUTION WIDTH 20.9 % (9.4-14.8)
[2020-07-21 17:55] LABS: ALBUMIN 3.2 g/dL (3.4-5.0); ANION GAP 7 mmol/L (5-15); CALCIUM 9.4 mg/dL (8.5-10.1); CHLORIDE 101 mmol/L (98-107); CREATININE 0.67 mg/dL (0.7-1.3)
[2020-07-21 17:59] LABS: TROPONIN I < 0.015 ng/mL (0.000-0.045)
[2020-07-21] MEDS ORDERED: SODIUM CHLORIDE FLUSH 10ML SYR IVF ONE (18:00)
[2020-07-21] MEDS ORDERED: methylPREDNISolone SOD SUCC 125 MG/2 ML IV ONE (18:00)
--- NOTE | 2020-07-21 18:03 | NUR ---
PATIENT DROPPED TO 87% WHILE ON RA, PLACED ON 3L NC, PATIENT AT 98%
[2020-07-21 18:06] LABS: MD YES
[2020-07-21 18:08] LABS: ANISOCYTOSIS 1+; LYMPH#(MANUAL) 4.11 x10^3/uL (1-3.4); LYMPHS% (MANUAL) 16 % (22-44); MONOS% (MANUAL) 7 % (2-9); OVALOCYTES 1+; POLYCHROMASIA 1+; SEG#(MANUAL) 19.79 x10^3/uL (1.8-6.8); SEGS% (MANUAL) 77 % (42-75)
[2020-07-21 18:09] LABS: <PLATELET ESTIMATE> INCREASED; <PLT MORPHOLOGY> NORMAL PLT MORPH; TEAR DROPS 1+
[2020-07-21] MEDS ORDERED: LORazepam 2 MG/ML, 1ML ONE ×2 (18:21→19:15)
[2020-07-21] MEDS: LORazepam 2 MG/ML, 1ML IVPush PRN ×2 (18:26→19:22)
--- NOTE | 2020-07-21 18:27 | NUR ---
PATIENT MEDICATED PER EMAR, TOLERATED WELL.
--- NOTE | 2020-07-21 18:49 | NUR ---
REPORT GIVEN TO JEREMY AVENDAÑO. PLAN OF CARE DISCUSSED
[2020-07-21] MEDS ORDERED: SODIUM CHLORIDE 0.9% 1,000ML IVBOLUS ONE ×2 (19:00→19:30)
[2020-07-21] MEDS ORDERED: CEFTRIAXONE PMX 1GM/50ML 50 ML ONE (19:15)
[2020-07-21] MEDS ORDERED: PROMETHAZINE 25 MG/ML, 1ML IM PRN (19:30)
[2020-07-21] MEDS ORDERED: ENOXAPARIN 40 MG/0.4 ML ONE (19:30)
[2020-07-21] MEDS ORDERED: OXYcodone IR 5MG TABLET PO PRN (19:30)
[2020-07-21] MEDS ORDERED: LORazepam 2 MG/ML, 1ML IV PRN ×5 (19:30)
[2020-07-21] MEDS ORDERED: LABETALOL 5MG/ML, 20ML IVPush PRN (19:30)
[2020-07-21] MEDS ORDERED: CEFTRIAXONE PMX 1GM/50ML 50 ML IVPB ONE (19:30)
[2020-07-21] MEDS ORDERED: hydrALAzine 20 MG/ML, 1ML IVPush PRN (19:30)
[2020-07-21] MEDS ORDERED: ONDANSETRON ODT 4 MG PO PRN (19:30)
[2020-07-21] MEDS ORDERED: AZITHROMYCIN 500 MG in SODIUM CHLORIDE 0.9% 250 ML IV ONE (19:30)
[2020-07-21] MEDS ORDERED: LORazepam 1MG TABLET PO PRN ×4 (19:30)
[2020-07-21] MEDS ORDERED: morphine SULFATE 10 MG/ML, 1ML IVPush PRN (19:30)
[2020-07-21] MEDS ORDERED: BISACODYL 10 MG SUPP PR PRN (19:30)
[2020-07-21] MEDS ORDERED: DOCUSATE 100 MG CAPSULE PO PRN (19:30)
[2020-07-21] MEDS ORDERED: ONDANSETRON 2MG/ML, 2ML IVPush PRN (19:30)
[2020-07-21] MEDS ORDERED: LORazepam 0.5MG TABLET PO PRN (19:30)
[2020-07-21] MEDS ORDERED: POLYETHYLENE GLYCOL 17 GM PACKET PO PRN (19:30)
[2020-07-21] MEDS ORDERED: PANTOPRAZOLE 40 MG IV ONE (19:31)
[2020-07-21] MEDS: ENOXAPARIN 40 MG/0.4 ML SQ SCH (19:38)
[2020-07-21] MEDS: PANTOPRAZOLE 40 MG IV IVPush SCH (19:38)
[2020-07-21] MEDS: methylPREDNISolone SOD SUCC 125 MG/2 ML IVPush SCH (19:38)
[2020-07-21 20:01] LABS: FREE T4 (FREE THYROXINE) 1.22 ng/dL (0.76-1.46)
[2020-07-21] MEDS ORDERED: MAGNESIUM SULFATE PMX 2GM/50ML 50 ML IV ONE (20:30)
[2020-07-21] MEDS ORDERED: ALBUTEROL HFA 90 MCG/SPRAY INH PRN (20:30)
[2020-07-21] MEDS ORDERED: MAGNESIUM SULFATE PMX 2GM/50ML 50 ML ONE (20:38)
--- NOTE | 2020-07-21 20:48 | NUR ---
Coreg, banana bag, and inhaler requested from pharmacy
[2020-07-21] MEDS ORDERED: DOXYCYCLINE 100MG TABLET ONE (21:11)
[2020-07-21] MEDS ORDERED: CARVEDILOL 12.5 MG TABLET ONE (21:12)
--- NOTE | 2020-07-21 21:17 | NUR ---
Spoke with pharmacy, the banana bag will be ready in 15 minutes ,will also send gabapentin
--- NOTE | 2020-07-21 21:39 | NUR ---
Report called to Elsa LUNA to assume care upon transfer to [facility]
[2020-07-21] MEDS: ALBUTEROL-IPRATROPIUM MDI INH INH SCH (21:52)
[2020-07-21] MEDS: GABAPENTIN 100 MG CAPSULE PO SCH (21:52)
[2020-07-21] MEDS: DOXYCYCLINE 100MG TABLET PO SCH (21:52)
[2020-07-21] MEDS: CARVEDILOL 12.5 MG TABLET PO SCH (21:52)
[2020-07-21] MEDS: THIAMINE 200 MG, MVI ADULT 10 ML, FOLIC ACID 1 MG in D5%-0.9% NACL 1,000 ML IV SCH (21:58)
[2020-07-21 22:40] VITALS: BP 158/98
[2020-07-22 00:12] VITALS: BP 136/88
[2020-07-22] MEDS: methylPREDNISolone SOD SUCC 125 MG/2 ML IVPush SCH ×2 (01:30→07:58)
[2020-07-22 03:21] LABS: MICROSCOPIC NOT IND
[2020-07-22] MEDS: ALBUTEROL-IPRATROPIUM MDI INH INH SCH ×4 (06:22→19:37)
[2020-07-22] MEDS: CARVEDILOL 12.5 MG TABLET PO SCH ×2 (06:22→17:16)
[2020-07-22 06:49] LABS: ALANINE AMINOTRANSFERASE 31 U/L (12-78); ALBUMIN 2.6 g/dL (3.4-5.0); ANION GAP 4 mmol/L (5-15); CHLORIDE 107 mmol/L (98-107)
[2020-07-22 06:50] LABS: CALCIUM 7.9 mg/dL (8.5-10.1)
[2020-07-22 06:55] LABS: ALKALINE PHOSPHATASE 64 U/L (45-117); BILIRUBIN,TOTAL 0.3 mg/dL (0.2-1.0); CHOL/HDL RATIO 2.1; CHOLESTEROL, TOTAL 123 mg/dL (140-239); CREATININE 0.54 mg/dL (0.7-1.3); HDL CHOL % 47 % (26-37); HDL CHOLESTEROL (DIRECT) 58 mg/dL (40-60); LDL CHOLESTEROL,CALCULATED 57 mg/dL (54-169); TOTAL PROTEIN 5.3 g/dL (6.4-8.2); TRIGLYCERIDES 41 mg/dL (50-200); VLDL CHOLESTEROL 8 mg/dL (0-25)
[2020-07-22] MEDS ORDERED: ALBUTEROL HFA 90 MCG/SPRAY INH SCH (07:00)
[2020-07-22 07:08] LABS: MEAN CORPUSCULAR HEMOGLOBIN 27.4 pg (27.5-34.5); RED BLOOD COUNT 2.91 x10^6/uL (4.38-5.82); RED CELL DISTRIBUTION WIDTH 21.1 % (9.4-14.8)
[2020-07-22 07:25] VITALS: BP 156/94
[2020-07-22 07:27] LABS: BASOPHILS # (AUTO) 0.03 x10^3/uL (0-0.1); BASOPHILS % (AUTO) 0 % (0-1); EOSINOPHILS # (AUTO) 0.12 x10^3/uL (0-0.4); EOSINOPHILS % (AUTO) 1 % (1-7); LYMPHOCYTES # (AUTO) 0.73 x10^3/uL (1-3.4); LYMPHOCYTES % (AUTO) 7 % (22-44); MD SCAN; MEAN PLATELET VOLUME 6.6 fL (7.4-10.4); MONOCYTES # (AUTO) 0.13 x10^3/uL (0.2-0.8); MONOCYTES % (AUTO) 1 % (2-9); NEUTROPHILS # (AUTO) 9.36 x10^3/uL (1.8-6.8); NEUTROPHILS % (AUTO) 90 % (42-75); PLATELET COUNT 435 x10^3/uL (130-400)
[2020-07-22] MEDS: DOXYCYCLINE 100MG TABLET PO SCH ×2 (07:58→21:14)
[2020-07-22] MEDS: GABAPENTIN 100 MG CAPSULE PO SCH ×3 (07:58→21:14)
[2020-07-22] MEDS: PANTOPRAZOLE 40 MG IV IVPush SCH (07:58)
[2020-07-22] MEDS: LISINOPRIL 40 MG TABLET PO SCH (07:58)
[2020-07-22] MEDS ORDERED: FLUTICASONE/VILANTEROL 100-25MCG/INH INH SCH (09:00)
[2020-07-22] MEDS ORDERED: TIOTROPIUM BROMIDE 18 MCG/INH INH SCH (09:00)
[2020-07-22] MEDS: FLUTICASONE/VILANTEROL 100-25MCG/INH INH SCH (12:03)
[2020-07-22 13:06] VITALS: BP 131/78
[2020-07-22 18:39] VITALS: BP 118/70
[2020-07-22] MEDS: ENOXAPARIN 40 MG/0.4 ML SQ SCH (21:14)
[2020-07-22] MEDS: PANTOPRAZOLE 40MG TABLET PO SCH (21:15)
[2020-07-22] MEDS: THIAMINE 200 MG, MVI ADULT 10 ML, FOLIC ACID 1 MG in D5%-0.9% NACL 1,000 ML IV SCH (21:15)
[2020-07-23 00:19] VITALS: BP 145/85
[2020-07-23 04:58] LABS: MEAN CORPUSCULAR HEMOGLOBIN 27.7 pg (27.5-34.5); MEAN PLATELET VOLUME 7.5 fL (7.4-10.4); PLATELET COUNT 382 x10^3/uL (130-400); RED BLOOD COUNT 2.78 x10^6/uL (4.38-5.82); RED CELL DISTRIBUTION WIDTH 20.6 % (9.4-14.8)
[2020-07-23 05:09] LABS: CHLORIDE 105 mmol/L (98-107)
[2020-07-23 05:16] LABS: ANION GAP 6 mmol/L (5-15); CALCIUM 8.2 mg/dL (8.5-10.1); CREATININE 0.56 mg/dL (0.7-1.3)
[2020-07-23 05:46] LABS: BASOPHILS # (AUTO) 0.01 x10^3/uL (0-0.1); BASOPHILS % (AUTO) 0 % (0-1); EOSINOPHILS % (AUTO) 0 % (1-7); LYMPHOCYTES # (AUTO) 1.05 x10^3/uL (1-3.4); LYMPHOCYTES % (AUTO) 11 % (22-44); MD SCAN; MONOCYTES # (AUTO) 0.62 x10^3/uL (0.2-0.8); MONOCYTES % (AUTO) 6 % (2-9); NEUTROPHILS # (AUTO) 8.02 x10^3/uL (1.8-6.8); NEUTROPHILS % (AUTO) 83 % (42-75)
[2020-07-23] MEDS: CARVEDILOL 12.5 MG TABLET PO SCH ×2 (06:16→17:45)
[2020-07-23] MEDS: ALBUTEROL-IPRATROPIUM MDI INH INH SCH ×4 (06:17→20:05)
[2020-07-23 07:18] VITALS: BP 156/80
[2020-07-23] MEDS: DOXYCYCLINE 100MG TABLET PO SCH ×2 (09:28→21:52)
[2020-07-23] MEDS: FLUTICASONE/VILANTEROL 100-25MCG/INH INH SCH (09:28)
[2020-07-23] MEDS: PANTOPRAZOLE 40MG TABLET PO SCH ×2 (09:28→21:53)
[2020-07-23] MEDS: GABAPENTIN 100 MG CAPSULE PO SCH ×3 (09:28→21:53)
[2020-07-23] MEDS: LISINOPRIL 40 MG TABLET PO SCH (09:28)
[2020-07-23 12:28] VITALS: BP 128/79
[2020-07-23 19:52] VITALS: BP_SYST 131; BP_SYST 137; BP_DIAS 70; BP_DIAS 81
[2020-07-23] MEDS: ENOXAPARIN 40 MG/0.4 ML SQ SCH (21:52)
[2020-07-23] MEDS: THIAMINE 200 MG, MVI ADULT 10 ML, FOLIC ACID 1 MG in D5%-0.9% NACL 1,000 ML IV SCH (22:52)
[2020-07-24 00:14] VITALS: BP 153/84
[2020-07-24 04:33] LABS: MEAN CORPUSCULAR HEMOGLOBIN 27.2 pg (27.5-34.5); MEAN CORPUSCULAR HGB CONC 31.3 g/dL (33.2-36.2); MEAN PLATELET VOLUME 7.6 fL (7.4-10.4); PLATELET COUNT 366 x10^3/uL (130-400); RED BLOOD COUNT 3.08 x10^6/uL (4.38-5.82); RED CELL DISTRIBUTION WIDTH 20.6 % (9.4-14.8)
[2020-07-24 04:39] LABS: CHLORIDE 102 mmol/L (98-107)
[2020-07-24 04:44] LABS: ANION GAP 3 mmol/L (5-15); CALCIUM 8.7 mg/dL (8.5-10.1); CREATININE 0.58 mg/dL (0.7-1.3)
[2020-07-24 05:26] VITALS: BP 163/96
[2020-07-24] MEDS: ALBUTEROL-IPRATROPIUM MDI INH INH SCH (05:28)
[2020-07-24] MEDS: CARVEDILOL 12.5 MG TABLET PO SCH (05:28)
[2020-07-24 06:03] LABS: BASOPHILS # (AUTO) 0.02 x10^3/uL (0-0.1); BASOPHILS % (AUTO) 0 % (0-1); EOSINOPHILS # (AUTO) 0.09 x10^3/uL (0-0.4); EOSINOPHILS % (AUTO) 1 % (1-7); LYMPHOCYTES # (AUTO) 1.34 x10^3/uL (1-3.4); LYMPHOCYTES % (AUTO) 11 % (22-44); MD SCAN; MONOCYTES # (AUTO) 1.21 x10^3/uL (0.2-0.8); MONOCYTES % (AUTO) 10 % (2-9); NEUTROPHILS # (AUTO) 9.49 x10^3/uL (1.8-6.8); NEUTROPHILS % (AUTO) 78 % (42-75)
[2020-07-24 06:49] VITALS: BP 147/86
[2020-07-24] MEDS: GABAPENTIN 100 MG CAPSULE PO SCH (08:57)
[2020-07-24] MEDS: LISINOPRIL 40 MG TABLET PO SCH (08:58)
[2020-07-24] MEDS: PANTOPRAZOLE 40MG TABLET PO SCH (08:58)
[2020-07-24] MEDS: DOXYCYCLINE 100MG TABLET PO SCH (08:58)
[2020-07-24] MEDS: FLUTICASONE/VILANTEROL 100-25MCG/INH INH SCH (09:00)
[2020-07-24] MEDS ORDERED: DOXY100T PO (09:26)
[2020-07-24] MEDS ORDERED: PRED20TA PO (09:26)
[2020-07-24] MEDS ORDERED: THIA100T67 PO (09:26)
== END 2020-07-24 10:46 | disposition home or self-care (01) | DRG 871 ==
LOC: ED 19:12 → EDIP 19:22 → 4WST 22:27 → DCLOUNGE 07-24 10:39
PROVIDERS: ADMIT Internal Medicine; ATTEND Internal Medicine
DX: A41.9 Sepsis, unspecified organism (principal); J96.01 Acute respiratory failure with hypoxia; B37.81 Candidal esophagitis; E87.2 Acidosis; F10.239 Alcohol dependence with withdrawal, unspecified; J44.1 Chronic obstructive pulmonary disease with (acute) exacerbation; F17.200 Nicotine dependence, unspecified, uncomplicated; D64.9 Anemia, unspecified; E83.42 Hypomagnesemia; I11.0 Hypertensive heart disease with heart failure; I50.9 Heart failure, unspecified; Z91.14 Patient's other noncompliance with medication regimen; Z59.0 Homelessness; Z91.013 Allergy to seafood; Z91.09 Other allergy status, other than to drugs and biological substances; Z90.49 Acquired absence of other specified parts of digestive tract; Z79.899 Other long term (current) drug therapy; Y90.9 Presence of alcohol in blood, level not specified
CPT/HCPCS: 36415; 96374; 99291; J7042; 71045; 80048; 80053; 80061; 81003; 82040; 83036; 83605; 83735; 83880; 84439; 84443; 84484; 85025; 87040; 93005; G0378; J0456; J0696; J1650; J3411; C9113; J2060; J2930; J3475; J7030; J7050; J7512

== ENCOUNTER 2020-07-29 12:40 | Inpatient (IN) | payer MEDICAID ==
[~2020-07-29] VITALS: Ht 172.7 cm; Wt 85.4 kg
[2020-07-29] MEDS ORDERED: ONDANSETRON 2MG/ML, 2ML IVPush ONE (13:30)
[2020-07-29] MEDS ORDERED: SODIUM CHLORIDE 0.9% 1,000ML IVBOLUS ONE (13:30)
[2020-07-29] MEDS ORDERED: PANTOPRAZOLE 40 MG IV IVPush ONE (13:30)
[2020-07-29] MEDS ORDERED: FAMOTIDINE 20 MG/2 ML IVPush ONE (13:30)
[2020-07-29] MEDS ORDERED: HYDROmorphone 1 MG/ML, 1ML INJ IVPush PRN (13:30)
[2020-07-29] MEDS ORDERED: SODIUM CHLORIDE FLUSH 10ML SYR IVF ONE (13:30)
[2020-07-29 13:40] LABS: ALBUMIN 3.2 g/dL (3.4-5.0); ANION GAP 10 mmol/L (5-15); CALCIUM 8.8 mg/dL (8.5-10.1); CHLORIDE 99 mmol/L (98-107)
[2020-07-29 13:41] LABS: INTERNATIONAL NORMALIZED RATIO 1.6 (0.93-1.1); PROTHROMBIN TIME 16.6 Seconds (9.6-11.5)
[2020-07-29 13:43] LABS: ALANINE AMINOTRANSFERASE 143 U/L (12-78); ALKALINE PHOSPHATASE 90 U/L (45-117); BILIRUBIN,TOTAL 0.2 mg/dL (0.2-1.0); CREATININE 0.89 mg/dL (0.7-1.3); TOTAL PROTEIN 5.9 g/dL (6.4-8.2)
[2020-07-29 13:56] LABS: MD YES; MEAN CORPUSCULAR HEMOGLOBIN 27.4 pg (27.5-34.5); MEAN CORPUSCULAR HGB CONC 31.5 g/dL (33.2-36.2); MEAN PLATELET VOLUME 7.7 fL (7.4-10.4); PLATELET COUNT 385 x10^3/uL (130-400); RED BLOOD COUNT 3.53 x10^6/uL (4.38-5.82); RED CELL DISTRIBUTION WIDTH 22.4 % (9.4-14.8)
[2020-07-29 13:58] LABS: BAND#(MANUAL) 0.32 x10^3/uL; BANDS%(MANUAL) 1 % (0-7); LYMPH#(MANUAL) 3.79 x10^3/uL (1-3.4); LYMPHS% (MANUAL) 12 % (22-44); MONOS#(MANUAL) 0.63 x10^3/uL (0.3-2.7); MONOS% (MANUAL) 2 % (2-9)
[2020-07-29 13:59] LABS: MYELOCYTES# (MANUAL) 0.63 x10^3/uL (0-0); MYELOCYTES% (MANUAL) 2 % (0-0)
[2020-07-29 14:00] LABS: METAMYELOCYTES# (MANUAL) 0.63 x10^3/uL (0-0); METAMYELOCYTES% (MANUAL) 2 % (0-1); SEGS% (MANUAL) 81 % (42-75)
[2020-07-29 14:02] LABS: <PLATELET ESTIMATE> ADEQUATE; <PLT MORPHOLOGY> NORMAL PLT MORPH; ANISOCYTOSIS 1+; HYPOCHROMIA 1+; OVALOCYTES 1+
[2020-07-29] MEDS ORDERED: CEFTRIAXONE PMX 1GM/50ML 50 ML ONE (14:42)
[2020-07-29] MEDS ORDERED: POTASSIUM CHLORIDE 20 MEQ TAB.ER.PRT ONE (14:42)
[2020-07-29] MEDS ORDERED: HYDROmorphone 1 MG/ML, 1ML INJ ONE (14:42)
[2020-07-29] MEDS ORDERED: PANTOPRAZOLE 40 MG IV ONE (14:42)
[2020-07-29] MEDS ORDERED: ONDANSETRON 2MG/ML, 2ML ONE (14:42)
[2020-07-29] MEDS ORDERED: FAMOTIDINE 20 MG/2 ML ONE (14:43)
[2020-07-29] MEDS ORDERED: POTASSIUM CHLORIDE 20 MEQ TAB.ER.PRT PO ONE (15:00)
[2020-07-29] MEDS ORDERED: CEFTRIAXONE PMX 1GM/50ML 50 ML IVPB ONE (15:00)
[2020-07-29] MEDS ORDERED: OMNIPAQUE 350 MG/ML, 100ML BOTTLE ONE (15:04)
--- NOTE | 2020-07-29 15:41 | NUR ---
Pt medicated for pain and nausea. Hospitalist at bedside. Pt being transferred to room with RN. Stable, VS updated.
[2020-07-29 16:00] LABS: TROPONIN I < 0.015 ng/mL (0.000-0.045)
[2020-07-29] MEDS ORDERED: LABETALOL 5MG/ML, 20ML IVPush PRN (16:30)
[2020-07-29] MEDS ORDERED: OXYcodone IR 5MG TABLET PO PRN (16:30)
[2020-07-29] MEDS ORDERED: ACETAMINOPHEN 325 MG TABLET PO PRN (16:30)
[2020-07-29] MEDS ORDERED: morphine SULFATE 10 MG/ML, 1ML IVPush PRN (16:30)
[2020-07-29] MEDS: CEFTRIAXONE PMX 1GM/50ML 50 ML IV SCH (16:30)
[2020-07-29] MEDS ORDERED: ONDANSETRON 2MG/ML, 2ML IVPush PRN (16:30)
[2020-07-29] MEDS: SUCRALFATE 1 GM/10 ML UDC PO SCH ×2 (16:30→21:33)
[2020-07-29 16:55] VITALS: BP 133/76
[2020-07-29 17:24] LABS: TROPONIN I < 0.015 ng/mL (0.000-0.045)
[2020-07-29] MEDS ORDERED: ALBUTEROL SULFATE 2.5 MG/3 ML NPPB PRN (18:00)
[2020-07-29] MEDS: AZITHROMYCIN 500 MG in SODIUM CHLORIDE 0.9% 250 ML IV SCH (18:33)
[2020-07-29 18:53] VITALS: BP 120/74
[2020-07-29] MEDS: PANTOPRAZOLE 40 MG IV IVPush SCH (21:34)
[2020-07-29] MEDS: POTASSIUM CHLORIDE 20 MEQ, MAGNESIUM SULFATE 2 GM, THIAMINE 200 MG, MVI ADULT 10 ML, FO... IV SCH (21:44)
[2020-07-29 23:07] LABS: TROPONIN I < 0.015 ng/mL (0.000-0.045)
[2020-07-30 00:54] VITALS: BP 123/78
[2020-07-30 04:42] LABS: MEAN CORPUSCULAR HEMOGLOBIN 27.2 pg (27.5-34.5); MEAN CORPUSCULAR HGB CONC 31.2 g/dL (33.2-36.2); MEAN PLATELET VOLUME 7.7 fL (7.4-10.4); PLATELET COUNT 317 x10^3/uL (130-400); RED BLOOD COUNT 2.91 x10^6/uL (4.38-5.82); RED CELL DISTRIBUTION WIDTH 22.8 % (9.4-14.8)
[2020-07-30 05:01] LABS: ALBUMIN 2.4 g/dL (3.4-5.0); ANION GAP 4 mmol/L (5-15); CALCIUM 8.2 mg/dL (8.5-10.1); CHLORIDE 107 mmol/L (98-107)
[2020-07-30 05:06] LABS: ALANINE AMINOTRANSFERASE 100 U/L (12-78); ALKALINE PHOSPHATASE 66 U/L (45-117); BILIRUBIN,TOTAL 0.2 mg/dL (0.2-1.0); CREATININE 0.57 mg/dL (0.7-1.3); TOTAL PROTEIN 4.8 g/dL (6.4-8.2)
[2020-07-30 06:04] LABS: MD YES
[2020-07-30 06:06] LABS: ANISOCYTOSIS 1+; HYPOCHROMIA 1+; LYMPH#(MANUAL) 2.55 x10^3/uL (1-3.4); LYMPHS% (MANUAL) 17 % (22-44); MONOS% (MANUAL) 6 % (2-9); MYELOCYTES# (MANUAL) 0.15 x10^3/uL (0-0); MYELOCYTES% (MANUAL) 1 % (0-0); OVALOCYTES 1+; SEGS% (MANUAL) 76 % (42-75)
[2020-07-30 06:07] LABS: <PLATELET ESTIMATE> ADEQUATE; <PLT MORPHOLOGY> NORMAL PLT MORPH; TEAR DROPS 1+
[2020-07-30 07:10] VITALS: BP 137/75
[2020-07-30] MEDS ORDERED: DOXAZOSIN 2MG TABLET PO SCH (09:00)
[2020-07-30] MEDS ORDERED: FLUTICASONE/VILANTEROL 100-25MCG/INH INH SCH (09:00)
[2020-07-30] MEDS ORDERED: LISINOPRIL 40 MG TABLET PO SCH (09:00)
[2020-07-30] MEDS: PANTOPRAZOLE 40 MG IV IVPush SCH ×2 (09:23→20:53)
[2020-07-30] MEDS: SUCRALFATE 1 GM/10 ML UDC PO SCH ×3 (09:25→20:53)
[2020-07-30] MEDS: TIOTROPIUM BROMIDE 18 MCG/INH INH SCH (09:26)
[2020-07-30] MEDS ORDERED: D5%-0.9% NACL 1,000 ML IV SCH (11:00)
[2020-07-30] MEDS: CARVEDILOL 12.5 MG TABLET PO SCH ×2 (11:05→17:57)
[2020-07-30 14:40] VITALS: BP 101/64
[2020-07-30] MEDS: AZITHROMYCIN 500 MG in SODIUM CHLORIDE 0.9% 250 ML IV SCH (16:39)
[2020-07-30] MEDS: CEFTRIAXONE PMX 1GM/50ML 50 ML IV SCH (17:58)
[2020-07-30 20:45] VITALS: BP 100/63
[2020-07-31] MEDS: POTASSIUM CHLORIDE 20 MEQ, MAGNESIUM SULFATE 2 GM, THIAMINE 200 MG, MVI ADULT 10 ML, FO... IV SCH (00:43)
[2020-07-31 00:52] VITALS: BP 122/75
[2020-07-31] MEDS: CARVEDILOL 12.5 MG TABLET PO SCH ×2 (06:10→17:45)
[2020-07-31 06:39] LABS: MEAN CORPUSCULAR HGB CONC 30.8 g/dL (33.2-36.2); MEAN PLATELET VOLUME 7.4 fL (7.4-10.4); PLATELET COUNT 273 x10^3/uL (130-400); RED BLOOD COUNT 2.73 x10^6/uL (4.38-5.82); RED CELL DISTRIBUTION WIDTH 22.7 % (9.4-14.8)
[2020-07-31 06:54] VITALS: BP 108/72
[2020-07-31] MEDS ORDERED: ALBUTEROL HFA 90 MCG/SPRAY INH PRN (07:30)
[2020-07-31 07:31] LABS: MD YES
[2020-07-31 07:33] LABS: <PLATELET ESTIMATE> ADEQUATE; <PLT MORPHOLOGY> NORMAL PLT MORPH; ANISOCYTOSIS 1+; EOS#(MANUAL) 0.69 x10^3/uL (0.0-0.4); EOS% (MANUAL) 5 % (1-7); HYPOCHROMIA 1+; LYMPH#(MANUAL) 2.76 x10^3/uL (1-3.4); LYMPHS% (MANUAL) 20 % (22-44); METAMYELOCYTES# (MANUAL) 0.28 x10^3/uL (0-0); METAMYELOCYTES% (MANUAL) 2 % (0-1); MONOS#(MANUAL) 0.55 x10^3/uL (0.3-2.7); MONOS% (MANUAL) 4 % (2-9); OVALOCYTES 1+; SEG#(MANUAL) 9.52 x10^3/uL (1.8-6.8); SEGS% (MANUAL) 69 % (42-75)
[2020-07-31 07:34] LABS: TEAR DROPS 1+
[2020-07-31] MEDS: TIOTROPIUM BROMIDE 18 MCG/INH INH SCH (09:00)
[2020-07-31] MEDS: SUCRALFATE 1 GM/10 ML UDC PO SCH ×3 (09:46→22:06)
[2020-07-31] MEDS: PANTOPRAZOLE 40 MG IV IVPush SCH ×2 (09:47→22:06)
[2020-07-31 09:51] VITALS: BP 100/68
[2020-07-31 12:47] VITALS: BP 107/69
[2020-07-31] MEDS: CEFTRIAXONE PMX 1GM/50ML 50 ML IV SCH (17:45)
[2020-07-31] MEDS: AZITHROMYCIN 500 MG in SODIUM CHLORIDE 0.9% 250 ML IV SCH (18:29)
[2020-07-31 19:56] VITALS: BP 103/71
[2020-07-31] MEDS ORDERED: FLUTICASONE/VILANTEROL 100-25MCG/INH INH SCH (21:00)
[2020-08-01 02:05] VITALS: BP 113/74
[2020-08-01] MEDS: CARVEDILOL 12.5 MG TABLET PO SCH (06:10)
[2020-08-01 07:16] VITALS: BP 108/80
[2020-08-01] MEDS: SUCRALFATE 1 GM/10 ML UDC PO SCH (08:19)
[2020-08-01] MEDS: PANTOPRAZOLE 40 MG IV IVPush SCH (08:20)
[2020-08-01] MEDS: TIOTROPIUM BROMIDE 18 MCG/INH INH SCH (08:23)
[2020-08-01] MEDS ORDERED: LISINOPRIL 5 MG TABLET PO SCH (09:00)
[2020-08-01] MEDS ORDERED: LISINOPRIL 10 MG TABLET PO SCH (09:00)
[2020-08-01] MEDS ORDERED: CEFD300C37 PO (10:39)
[2020-08-01] MEDS ORDERED: AZIT500T PO (10:39)
[2020-08-01] MEDS ORDERED: LISI5TAB7 PO (10:39)
== END 2020-08-01 11:55 | disposition home or self-care (01) | DRG 871 ==
LOC: ED 13:05 → EDIP 14:27 → SUATTDRO 15:19 → 5SO 16:40 → DCLOUNGE 08-01 11:49
PROVIDERS: ADMIT Hospitalist; ATTEND Hospitalist
DX: A41.9 Sepsis, unspecified organism (principal); J96.01 Acute respiratory failure with hypoxia; J69.0 Pneumonitis due to inhalation of food and vomit; K22.6 Gastro-esophageal laceration-hemorrhage syndrome; J44.1 Chronic obstructive pulmonary disease with (acute) exacerbation; J44.0 Chronic obstructive pulmonary disease with (acute) lower respiratory infection; K92.0 Hematemesis; E87.1 Hypo-osmolality and hyponatremia; E87.6 Hypokalemia; Z91.013 Allergy to seafood; D50.9 Iron deficiency anemia, unspecified; K74.60 Unspecified cirrhosis of liver; Z79.899 Other long term (current) drug therapy
CPT/HCPCS: 36415; 84145; 96374; 96375; 99285; J3490; J7042; J7613; 71045; 74177; 80053; 80307; 83605; 83690; 83735; 84100; 84484; 85025; 85610; 85730; 86704; 86706; 86708; 86803; 86850; 86900; 87040; 87340; 93005; 94640; G0378; J0456; J0696; J1170; J2405; J3411; J3475; J3480; Q9967; C9113; J7050

== ENCOUNTER 2020-08-18 19:11 | Inpatient (IN) | payer MEDICAID ==
[~2020-08-18] VITALS: Ht 190.5 cm; Wt 79.0 kg
[~2020-08-18 19:11] MED LIST changes: +LISI5TAB7 PO
[2020-08-18] MEDS ORDERED: ALBUTEROL SULFATE 2.5 MG/3 ML NPPB ONE ×2 (20:00→21:00)
[2020-08-18] MEDS ORDERED: methylPREDNISolone SOD SUCC 125 MG/2 ML IVPush ONE (20:00)
[2020-08-18] MEDS ORDERED: ALBUTEROL/IPRATROPIUM 2.5MG/0.5MG, 3 ML NPPB ONE (20:00)
--- NOTE | 2020-08-18 20:02 | NUR ---
pt here for sob and cough which caused him to fall and hit his hand. vss. pt has expritory wheezes. pt has hx of copd, htn and afib. pt takes coumadin but stpped all meds 2 days ago because he ran out. Pt to be started on bipap. piv attempted x 2 with no success. trauma rn attempting to place piv. resp at bedside
[2020-08-18] MEDS ORDERED: ALBUTEROL/IPRATROPIUM 2.5MG/0.5MG, 3 ML ONE (20:09)
[2020-08-18 20:19] LABS: MEAN CORPUSCULAR HEMOGLOBIN 25.9 pg (27.5-34.5); MEAN CORPUSCULAR HGB CONC 31.6 g/dL (33.2-36.2); PLATELET COUNT 505 x10^3/uL (130-400); RED BLOOD COUNT 4.03 x10^6/uL (4.38-5.82); RED CELL DISTRIBUTION WIDTH 23.3 % (9.4-14.8)
[2020-08-18 20:29] LABS: ANION GAP 8 mmol/L (5-15); CALCIUM 9.4 mg/dL (8.5-10.1); CHLORIDE 98 mmol/L (98-107); CREATININE 0.75 mg/dL (0.7-1.3)
[2020-08-18] MEDS ORDERED: methylPREDNISolone SOD SUCC 125 MG/2 ML ONE (20:31)
[2020-08-18 20:50] LABS: MD YES
[2020-08-18 20:55] LABS: ANISOCYTOSIS 1+; LYMPHS% (MANUAL) 34 % (22-44); METAMYELOCYTES% (MANUAL) 1 % (0-1); MONOS#(MANUAL) 0.62 x10^3/uL (0.3-2.7); MONOS% (MANUAL) 6 % (2-9); MYELOCYTES% (MANUAL) 1 % (0-0); REACTIVE LYMPHS % (MANUAL) 1 % (0-0); SEG#(MANUAL) 5.87 x10^3/uL (1.8-6.8); SEGS% (MANUAL) 57 % (42-75)
[2020-08-18] MEDS ORDERED: MAGNESIUM SULFATE PMX 2GM/50ML 50 ML ONE (20:55)
[2020-08-18] MEDS ORDERED: KETOROLAC 30 MG/1 ML ONE (20:55)
[2020-08-18 20:56] LABS: HYPOCHROMIA 1+; OVALOCYTES 1+; POLYCHROMASIA 1+; SCHISTOCYTES 1+; TEAR DROPS 1+
[2020-08-18 20:57] LABS: <PLATELET ESTIMATE> INCREASED
[2020-08-18 20:58] LABS: <PLT MORPHOLOGY> NORMAL PLT MORPH
[2020-08-18] MEDS ORDERED: KETOROLAC 30 MG/1 ML IVPush ONE (21:00)
[2020-08-18] MEDS: MAGNESIUM SULFATE PMX 2GM/50ML 50 ML IV ONE ×2 (21:02→22:33)
--- NOTE | 2020-08-18 21:06 | NUR ---
MEDICATED PT WITH SOLUMEDROL AND TORADOL. AFTER TORADOL PT COMPLAINED OF PAIN AT PIV SITE AND UP ARM. NO ISSUES NOTED WITH PIV BUT WILL HAVE ANOTHER RN PLACE NEW IV BEFORE MAG IS STARTED
--- NOTE | 2020-08-18 21:59 | NUR ---
NARCISA AT BEDSIDE ATTEMPTING US PIV
[2020-08-18] MEDS ORDERED: ONDANSETRON 2MG/ML, 2ML IVPush PRN (22:30)
[2020-08-18] MEDS ORDERED: TEMPLATE NON-FORMULARY MED. (Omeprazole Magnesium** (Prilosec Otc**) 20 MG) PO SCH (22:30)
[2020-08-18] MEDS ORDERED: BISACODYL 10 MG SUPP PR PRN (22:30)
[2020-08-18] MEDS ORDERED: ACETAMINOPHEN 325 MG TABLET PO PRN (22:30)
[2020-08-18] MEDS ORDERED: LORazepam 2 MG/ML, 1ML IVPush PRN (22:30)
[2020-08-18] MEDS ORDERED: morphine SULFATE 10 MG/ML, 1ML IVPush PRN (22:30)
--- NOTE | 2020-08-18 22:40 | NUR ---
PIV PLACED. MAG RUNNING. VSS. PT WATCHING TV WITH NO NEEDS AT THIS TIME. CALL LIGHT IN REACH
[2020-08-18] MEDS ORDERED: MORPHINE SULFATE 4 MG/ML, 1ML ONE (23:32)
[2020-08-18 23:57] VITALS: BP 167/101
[2020-08-19] MEDS ORDERED: ALBUTEROL-IPRATROPIUM MDI INH INH PRN
[2020-08-19] MEDS: GABAPENTIN 100 MG CAPSULE PO SCH ×4 (00:28→20:58)
[2020-08-19] MEDS: FAMOTIDINE 20 MG/2 ML IVPush SCH ×2 (00:29→09:42)
[2020-08-19] MEDS: HEPARIN 5,000 UNITS/ML, 1ML SQ SCH ×4 (00:29→22:18)
[2020-08-19] MEDS: methylPREDNISolone SOD SUCC 125 MG/2 ML IVPush SCH ×5 (00:29→22:18)
[2020-08-19] MEDS: FERROUS SULFATE 325 MG TABLET PO SCH ×3 (00:34→18:06)
[2020-08-19 05:00] VITALS: BP 139/85
[2020-08-19 05:12] LABS: BASOPHILS % (AUTO) 0 % (0-1); EOSINOPHILS % (AUTO) 0 % (1-7); LYMPHOCYTES % (AUTO) 12 % (22-44); MEAN CORPUSCULAR HEMOGLOBIN 25.8 pg (27.5-34.5); MEAN CORPUSCULAR HGB CONC 31.2 g/dL (33.2-36.2); MONOCYTES % (AUTO) 1 % (2-9); NEUTROPHILS % (AUTO) 87 % (42-75); PLATELET COUNT 352 x10^3/uL (130-400); RED BLOOD COUNT 3.25 x10^6/uL (4.38-5.82); RED CELL DISTRIBUTION WIDTH 23.2 % (9.4-14.8)
[2020-08-19] MEDS: CARVEDILOL 12.5 MG TABLET PO SCH ×2 (05:22→18:07)
[2020-08-19 05:26] LABS: CHLORIDE 101 mmol/L (98-107)
[2020-08-19 05:32] LABS: ANION GAP 13 mmol/L (5-15); CALCIUM 8.7 mg/dL (8.5-10.1)
[2020-08-19] MEDS: ALBUTEROL-IPRATROPIUM MDI INH INH SCH ×4 (06:05→18:32)
[2020-08-19 06:09] LABS: MD SCAN
[2020-08-19] MEDS ORDERED: TIOTROPIUM BROMIDE 18 MCG/INH INH SCH (09:00)
[2020-08-19] MEDS: AZITHROMYCIN 500 MG in SODIUM CHLORIDE 0.9% 250 ML IV SCH (09:42)
[2020-08-19] MEDS: LISINOPRIL 5 MG TABLET PO SCH (09:42)
[2020-08-19] MEDS: FLUTICASONE/VILANTEROL 100-25MCG/INH INH SCH (09:42)
[2020-08-19] MEDS ORDERED: THIAMINE 200 MG in SODIUM CHLORIDE 0.9% 50 ML IV SCH (12:00)
[2020-08-19] MEDS ORDERED: ALBUTEROL/IPRATROPIUM 2.5MG/0.5MG, 3 ML NPPB PRN (16:00)
[2020-08-19] MEDS ORDERED: DEXTROSE 50%, 50ML SYRINGE IVPush PRN (17:00)
[2020-08-19] MEDS ORDERED: GLUCAGON 1 MG IM PRN (17:00)
[2020-08-19] MEDS ORDERED: DEXTROSE 4 GM TAB.CHEW PO PRN (17:00)
[2020-08-19] MEDS: SODIUM CHLORIDE FLUSH 10ML SYR IVF SCH (20:58)
[2020-08-19] MEDS: FAMOTIDINE 20 MG TABLET PO SCH (22:17)
[2020-08-20 04:00] VITALS: BP 166/100
[2020-08-20] MEDS: methylPREDNISolone SOD SUCC 125 MG/2 ML IVPush SCH ×4 (04:13→22:47)
[2020-08-20 04:40] LABS: BASOPHILS % (AUTO) 0 % (0-1); EOSINOPHILS % (AUTO) 0 % (1-7); LYMPHOCYTES % (AUTO) 8 % (22-44); MEAN CORPUSCULAR HEMOGLOBIN 25.5 pg (27.5-34.5); MEAN CORPUSCULAR HGB CONC 30.6 g/dL (33.2-36.2); MEAN PLATELET VOLUME 7.2 fL (7.4-10.4); MONOCYTES % (AUTO) 3 % (2-9); NEUTROPHILS % (AUTO) 89 % (42-75); PLATELET COUNT 316 x10^3/uL (130-400); RED BLOOD COUNT 3.18 x10^6/uL (4.38-5.82); RED CELL DISTRIBUTION WIDTH 22.6 % (9.4-14.8)
[2020-08-20 04:51] LABS: ALBUMIN 2.8 g/dL (3.4-5.0); ANION GAP 1 mmol/L (5-15); CHLORIDE 101 mmol/L (98-107)
[2020-08-20 04:55] LABS: ALANINE AMINOTRANSFERASE 21 U/L (12-78); ALKALINE PHOSPHATASE 72 U/L (45-117); BILIRUBIN,TOTAL 0.2 mg/dL (0.2-1.0); CREATININE 0.92 mg/dL (0.7-1.3); TOTAL PROTEIN 5.5 g/dL (6.4-8.2)
[2020-08-20] MEDS: CARVEDILOL 12.5 MG TABLET PO SCH ×2 (06:03→17:01)
[2020-08-20] MEDS: HEPARIN 5,000 UNITS/ML, 1ML SQ SCH ×3 (06:04→22:47)
[2020-08-20 06:05] LABS: MD SCAN
[2020-08-20] MEDS: ALBUTEROL-IPRATROPIUM MDI INH INH SCH ×4 (07:00→19:13)
[2020-08-20] MEDS ORDERED: IRON SUCROSE COMPLEX 100MG/5ML IV SCH (09:00)
[2020-08-20] MEDS: FLUTICASONE/VILANTEROL 100-25MCG/INH INH SCH (09:00)
[2020-08-20] MEDS: SODIUM CHLORIDE FLUSH 10ML SYR IVF SCH ×2 (09:00→19:30)
[2020-08-20] MEDS: FERROUS SULFATE 325 MG TABLET PO SCH ×2 (09:42→17:01)
[2020-08-20] MEDS: LISINOPRIL 5 MG TABLET PO SCH (09:42)
[2020-08-20] MEDS: AZITHROMYCIN 500 MG in SODIUM CHLORIDE 0.9% 250 ML IV SCH (09:42)
[2020-08-20] MEDS: GABAPENTIN 100 MG CAPSULE PO SCH ×3 (09:43→21:29)
[2020-08-20] MEDS: FAMOTIDINE 20 MG TABLET PO SCH ×2 (11:00→21:29)
[2020-08-20 15:19] VITALS: BP 159/92
[2020-08-20] MEDS ORDERED: FERROUS SULFATE 325 MG TABLET PO SCH (17:00)
[2020-08-20 19:25] VITALS: BP 164/91
[2020-08-21] VITALS (7 sets, daily range): BP systolic 138–194; BP diastolic 84–117
[2020-08-21] MEDS: methylPREDNISolone SOD SUCC 125 MG/2 ML IVPush SCH (05:11)
[2020-08-21] MEDS: CARVEDILOL 12.5 MG TABLET PO SCH ×2 (05:11→17:19)
[2020-08-21] MEDS: HEPARIN 5,000 UNITS/ML, 1ML SQ SCH ×3 (06:24→20:17)
[2020-08-21] MEDS: ALBUTEROL-IPRATROPIUM MDI INH INH SCH ×4 (07:47→20:00)
[2020-08-21] MEDS: FLUTICASONE/VILANTEROL 100-25MCG/INH INH SCH (07:47)
[2020-08-21] MEDS: LISINOPRIL 5 MG TABLET PO SCH (08:23)
[2020-08-21] MEDS: FERROUS SULFATE 325 MG TABLET PO SCH ×2 (08:23→17:18)
[2020-08-21] MEDS: GABAPENTIN 100 MG CAPSULE PO SCH ×3 (08:24→20:16)
[2020-08-21] MEDS: THIAMINE 100MG TABLET PO SCH (08:24)
[2020-08-21] MEDS: AZITHROMYCIN 500 MG in SODIUM CHLORIDE 0.9% 250 ML IV SCH (08:25)
[2020-08-21] MEDS: FAMOTIDINE 20 MG TABLET PO SCH ×2 (08:25→20:16)
[2020-08-21] MEDS: methylPREDNISolone SOD SUCC 40 MG/ML IVPush SCH ×3 (11:22→20:17)
[2020-08-21] MEDS: SODIUM CHLORIDE FLUSH 10ML SYR IVF SCH ×2 (11:22→20:23)
[2020-08-21] MEDS ORDERED: LABETALOL 5MG/ML, 20ML IVPush ONE (19:30)
[2020-08-21] MEDS ORDERED: ALBUTEROL-IPRATROPIUM MDI INH INH PRN (20:00)
[2020-08-22 01:45] VITALS: BP 154/96
[2020-08-22] MEDS: methylPREDNISolone SOD SUCC 40 MG/ML IVPush SCH ×4 (04:58→20:19)
[2020-08-22] MEDS: CARVEDILOL 12.5 MG TABLET PO SCH ×2 (04:58→17:41)
[2020-08-22] MEDS: HEPARIN 5,000 UNITS/ML, 1ML SQ SCH ×3 (04:58→20:20)
[2020-08-22] MEDS: ALBUTEROL-IPRATROPIUM MDI INH INH SCH ×5 (04:59→20:23)
[2020-08-22 07:02] VITALS: BP 153/86
[2020-08-22] MEDS ORDERED: OXYcodone IR 5MG TABLET PO PRN (08:00)
[2020-08-22] MEDS: GABAPENTIN 100 MG CAPSULE PO SCH ×3 (08:36→20:19)
[2020-08-22] MEDS: AZITHROMYCIN 500 MG in SODIUM CHLORIDE 0.9% 250 ML IV SCH (08:36)
[2020-08-22] MEDS: FAMOTIDINE 20 MG TABLET PO SCH ×2 (08:36→20:19)
[2020-08-22] MEDS: FERROUS SULFATE 325 MG TABLET PO SCH ×2 (08:37→16:19)
[2020-08-22] MEDS: AMLODIPINE 10 MG TAB PO SCH (08:37)
[2020-08-22] MEDS: LISINOPRIL 10 MG TABLET PO SCH ×2 (08:38→20:19)
[2020-08-22] MEDS: THIAMINE 100MG TABLET PO SCH (08:38)
[2020-08-22] MEDS: SODIUM CHLORIDE FLUSH 10ML SYR IVF SCH ×2 (08:39→20:24)
[2020-08-22] MEDS: FLUTICASONE/VILANTEROL 100-25MCG/INH INH SCH (10:43)
[2020-08-22 12:18] VITALS: BP 151/85
[2020-08-22 17:45] VITALS: BP 163/109
[2020-08-22 20:06] VITALS: BP 171/111
[2020-08-23 01:29] VITALS: BP 156/98
[2020-08-23] MEDS: CARVEDILOL 12.5 MG TABLET PO SCH ×2 (05:19→16:34)
[2020-08-23] MEDS: ASPIRIN 81 MG TABLET EC PO SCH (05:19)
[2020-08-23] MEDS: HEPARIN 5,000 UNITS/ML, 1ML SQ SCH ×3 (05:19→22:48)
[2020-08-23] MEDS: methylPREDNISolone SOD SUCC 40 MG/ML IVPush SCH ×3 (05:19→21:21)
[2020-08-23] MEDS: ALBUTEROL-IPRATROPIUM MDI INH INH SCH ×4 (05:20→19:20)
[2020-08-23 07:04] VITALS: BP 136/76
[2020-08-23] MEDS ORDERED: FLUTICASONE/VILANTEROL 100-25MCG/INH INH SCH (09:00)
[2020-08-23] MEDS: FERROUS SULFATE 325 MG TABLET PO SCH ×2 (09:45→16:34)
[2020-08-23] MEDS: GABAPENTIN 100 MG CAPSULE PO SCH ×3 (09:45→21:23)
[2020-08-23] MEDS: AMLODIPINE 10 MG TAB PO SCH (09:45)
[2020-08-23] MEDS: FAMOTIDINE 20 MG TABLET PO SCH ×2 (09:45→21:22)
[2020-08-23] MEDS: LISINOPRIL 20 MG TABLET PO SCH ×2 (09:45→21:22)
[2020-08-23] MEDS: AZITHROMYCIN 500 MG in SODIUM CHLORIDE 0.9% 250 ML IV SCH (09:46)
[2020-08-23] MEDS: SODIUM CHLORIDE FLUSH 10ML SYR IVF SCH ×2 (10:27→21:21)
[2020-08-23] MEDS: FLUTICASONE/VILANTEROL 100-25MCG/INH INH SCH (10:56)
[2020-08-23] MEDS: THIAMINE 100MG TABLET PO SCH (11:41)
[2020-08-23 12:20] VITALS: BP 148/91
[2020-08-23 18:47] VITALS: BP 156/94
[2020-08-24 02:24] VITALS: BP 132/90
[2020-08-24] MEDS: HEPARIN 5,000 UNITS/ML, 1ML SQ SCH ×3 (06:43→22:30)
[2020-08-24] MEDS: ASPIRIN 81 MG TABLET EC PO SCH (06:43)
[2020-08-24] MEDS: CARVEDILOL 12.5 MG TABLET PO SCH ×2 (06:43→18:09)
[2020-08-24] MEDS: ALBUTEROL-IPRATROPIUM MDI INH INH SCH ×5 (06:45→18:50)
[2020-08-24] MEDS: FLUTICASONE/VILANTEROL 100-25MCG/INH INH SCH (06:45)
[2020-08-24 07:08] VITALS: BP 134/80
[2020-08-24] MEDS ORDERED: FAMOTIDINE 40 MG TABLET ONE ×2 (09:46→21:03)
[2020-08-24] MEDS: SODIUM CHLORIDE FLUSH 10ML SYR IVF SCH ×2 (09:56→21:19)
[2020-08-24] MEDS: GABAPENTIN 100 MG CAPSULE PO SCH ×3 (09:57→21:18)
[2020-08-24] MEDS: FAMOTIDINE 20 MG TABLET PO SCH ×2 (09:58→21:00)
[2020-08-24] MEDS: methylPREDNISolone SOD SUCC 40 MG/ML IVPush SCH (09:59)
[2020-08-24] MEDS: FERROUS SULFATE 325 MG TABLET PO SCH ×2 (09:59→18:09)
[2020-08-24] MEDS: LISINOPRIL 20 MG TABLET PO SCH ×2 (09:59→21:17)
[2020-08-24] MEDS: THIAMINE 100MG TABLET PO SCH (09:59)
[2020-08-24] MEDS: AMLODIPINE 10 MG TAB PO SCH (09:59)
[2020-08-24 12:28] VITALS: BP 134/74
[2020-08-24 18:10] VITALS: BP 146/76
[2020-08-24 20:31] VITALS: BP 125/72
[2020-08-25 01:22] VITALS: BP 133/81
[2020-08-25] MEDS: HEPARIN 5,000 UNITS/ML, 1ML SQ SCH (06:30)
[2020-08-25] MEDS: ASPIRIN 81 MG TABLET EC PO SCH (06:49)
[2020-08-25] MEDS: CARVEDILOL 12.5 MG TABLET PO SCH (06:49)
[2020-08-25] MEDS: ALBUTEROL-IPRATROPIUM MDI INH INH SCH ×3 (06:59→10:10)
[2020-08-25 07:47] VITALS: BP 134/84
[2020-08-25] MEDS ORDERED: FAMOTIDINE 40 MG TABLET ONE (08:08)
[2020-08-25] MEDS: LISINOPRIL 20 MG TABLET PO SCH (08:13)
[2020-08-25] MEDS: FAMOTIDINE 20 MG TABLET PO SCH (08:13)
[2020-08-25] MEDS: GABAPENTIN 100 MG CAPSULE PO SCH (08:13)
[2020-08-25] MEDS: AMLODIPINE 10 MG TAB PO SCH (08:13)
[2020-08-25] MEDS: FERROUS SULFATE 325 MG TABLET PO SCH (08:14)
[2020-08-25] MEDS: SODIUM CHLORIDE FLUSH 10ML SYR IVF SCH (08:14)
[2020-08-25] MEDS: FLUTICASONE/VILANTEROL 100-25MCG/INH INH SCH (08:14)
[2020-08-25] MEDS: THIAMINE 100MG TABLET PO SCH (08:16)
[2020-08-25] MEDS ORDERED: GABA-826 PO (10:50)
[2020-08-25] MEDS ORDERED: ALBU8.5H8 INH (10:50)
[2020-08-25] MEDS ORDERED: FERR-51 PO (10:50)
[2020-08-25] MEDS ORDERED: THIA100T67 PO (10:50)
[2020-08-25] MEDS ORDERED: LISI-170 PO (10:50)
[2020-08-25] MEDS ORDERED: CARV12.52 PO (10:50)
[2020-08-25] MEDS ORDERED: PRED20TA PO (10:50)
[2020-08-25] MEDS ORDERED: OMEP20TA62 PO (10:50)
== END 2020-08-25 13:10 | disposition home or self-care (01) | DRG 189 ==
LOC: ED 21:07 → EDIP 21:13 → ED 21:23 → CCU 23:47 → 4WST 08-21 18:40 → 3WST 08-24 00:15 → DCLOUNGE 08-25 13:01
PROVIDERS: ADMIT Internal Medicine; ATTEND Hospitalist
PROC: 5A09357 Assistance with Respiratory Ventilation, Less than 24 Consecutive Hours, Continuous Positive Airway Pressure (ICD-10-PCS; principal; 2020-08-18)
DX: J96.21 Acute and chronic respiratory failure with hypoxia (principal); E43 Unspecified severe protein-calorie malnutrition; E22.2 Syndrome of inappropriate secretion of antidiuretic hormone; I48.20 Chronic atrial fibrillation, unspecified; J44.1 Chronic obstructive pulmonary disease with (acute) exacerbation; D68.69 Other thrombophilia; E11.9 Type 2 diabetes mellitus without complications; F10.10 Alcohol abuse, uncomplicated; F17.210 Nicotine dependence, cigarettes, uncomplicated; I10 Essential (primary) hypertension; K70.30 Alcoholic cirrhosis of liver without ascites; I27.20 Pulmonary hypertension, unspecified; D50.9 Iron deficiency anemia, unspecified; Z87.11 Personal history of peptic ulcer disease; Z82.49 Family history of ischemic heart disease and other diseases of the circulatory system; Z68.21 Body mass index [BMI] 21.0-21.9, adult; Z91.018 Allergy to other foods; Z91.013 Allergy to seafood
CPT/HCPCS: 36415; 96365; 96372; 96375; 96376; 99291; J7613; 71045; 80048; 80053; 82728; 82803; 83540; 83550; 85025; 87081; 94640; 94660; G0378; J0456; J1644; J1885; J3411; J2270; J2920; J2930; J3475; J7050; J7512

== ENCOUNTER 2020-09-06 17:50 | Inpatient (IN) | payer MEDICAID ==
[~2020-09-06] VITALS: Ht 177.8 cm; Wt 80.9 kg
[~2020-09-06 17:50] MED LIST changes: +AMLO-211 PO; -AMLO10TA8 PO; +FERR-51 PO
--- NOTE | 2020-09-06 18:05 | NUR ---
PLEASANT 55 YO GENTLEMAN BIB AMBULANCE FROM HOME THIS EVENING FOR INCREASING SOB, CHILLS, DIFFICULTY CATCHING A BREATH AND CHEST/UPPER BACK PAIN. PT WITH HISTORY OF AFIB ON COUMADIN, AND BETA BLOCKERS, AND UNSURE ABOUT OTHER MEDICATIONS. PT WITH SUBJECTIVE FEVER AND CHILLS WITH PAST HISTORY OF PNEUMONIA AND COPD. PT DOES NOT WEAR O2 AT HOME, BUT REQUIRESF. PT CONCERNED THAT HE MIGHT HAVE PNUEMONIA AGAIN. PER EMS, PT HAS REQUIRED 4 L NC TO MAINTAIN O2 SAT ABOVE 90%. UPON ARRIVAL TO [facility] ED, PT ATTACHED TO CARDIAC AND VS MONITORS. VSS AT THIS TIME. EKG PERFORMED AT BS. PT EDUCATED ON ER PROCESS AND VERBALIZES UNDERSTANDING. AWAITING ERP FOR PT HISTORY AND ASSESSMENT. PT HAS CALL LIGHT WITHIN REACH AT THIS TIME
[2020-09-06] MEDS ORDERED: methylPREDNISolone SOD SUCC 125 MG/2 ML IV ONE (19:00)
[2020-09-06] MEDS ORDERED: SODIUM CHLORIDE FLUSH 10ML SYR IVF ONE (19:00)
[2020-09-06] MEDS ORDERED: ALBUTEROL/IPRATROPIUM 2.5MG/0.5MG, 3 ML NPPB SCH (19:00)
[2020-09-06] MEDS ORDERED: methylPREDNISolone SOD SUCC 125 MG/2 ML ONE (19:01)
[2020-09-06] MEDS ORDERED: ALBUTEROL/IPRATROPIUM 2.5MG/0.5MG, 3 ML ONE (19:02)
[2020-09-06 19:08] LABS: BASOPHILS % (AUTO) 2 % (0-1); EOSINOPHILS % (AUTO) 1 % (1-7); LYMPHOCYTES % (AUTO) 21 % (22-44); MEAN CORPUSCULAR HEMOGLOBIN 28.1 pg (27.5-34.5); MEAN CORPUSCULAR HGB CONC 32.8 g/dL (33.2-36.2); MEAN PLATELET VOLUME 6.7 fL (7.4-10.4); MONOCYTES % (AUTO) 11 % (2-9); NEUTROPHILS % (AUTO) 65 % (42-75); PLATELET COUNT 200 x10^3/uL (130-400); RED BLOOD COUNT 3.46 x10^6/uL (4.38-5.82)
--- NOTE | 2020-09-06 19:11 | NUR ---
pt medicated per dec. pt vss and updated in emr.
[2020-09-06 19:13] LABS: ALANINE AMINOTRANSFERASE 36 U/L (12-78); ANION GAP 8 mmol/L (5-15); CALCIUM 7.9 mg/dL (8.5-10.1); CHLORIDE 95 mmol/L (98-107); CREATININE 0.64 mg/dL (0.7-1.3)
--- NOTE | 2020-09-06 19:13 | NUR ---
BREATHING TREATMENT INITIATED PER DEC. PT VERBALIZES UNDERSTANDING OF USE OF NEBULIZER.
[2020-09-06 19:14] LABS: INTERNATIONAL NORMALIZED RATIO 2.93 (0.93-1.1)
[2020-09-06 19:18] LABS: ALKALINE PHOSPHATASE 62 U/L (45-117); BILIRUBIN,TOTAL 0.2 mg/dL (0.2-1.0); TOTAL PROTEIN 6.1 g/dL (6.4-8.2); TROPONIN I < 0.015 ng/mL (0.000-0.045)
[2020-09-06 19:19] LABS: PROTHROMBIN TIME 30.7 Seconds (9.6-11.5)
[2020-09-06 19:23] LABS: MD MORPH REVIEW ONLY
[2020-09-06 20:26] LABS: HYPOCHROMIA 1+; MICROCYTOSIS 1+; OVALOCYTES 1+; POLYCHROMASIA 1+; SCHISTOCYTES 1+; TEAR DROPS 1+
[2020-09-06 20:27] LABS: <PLATELET ESTIMATE> ADEQUATE; <PLT MORPHOLOGY> NORMAL PLT MORPH
--- NOTE | 2020-09-06 21:45 | NUR ---
PT ASLEEP IN [facility] AT THIS TIME WITH [facility]LE[facility]. CALL LIGHT IS WITHIN REACH. PT VSS AND UPDATED IN EMR AT THIS TIME.
[2020-09-06] MEDS ORDERED: DEXTROSE 4 GM TAB.CHEW PO PRN (23:00)
[2020-09-06] MEDS ORDERED: LABETALOL 5MG/ML, 20ML IVPush PRN (23:00)
[2020-09-06] MEDS ORDERED: DEXTROSE 50%, 50ML SYRINGE IVPush PRN (23:00)
[2020-09-06] MEDS ORDERED: DOCUSATE 100 MG CAPSULE PO PRN (23:00)
[2020-09-06] MEDS ORDERED: GLUCAGON 1 MG IM PRN (23:00)
[2020-09-06] MEDS ORDERED: SODIUM CHLORIDE 0.9% 1,000 ML IV SCH (23:00)
[2020-09-06] MEDS ORDERED: HEPARIN 5,000 UNITS/ML, 1ML SQ SCH (23:00)
[2020-09-06] MEDS ORDERED: POTASSIUM CHLORIDE 40 MEQ in SODIUM CHLORIDE 0.9% 500 ML IV ONE (23:00)
[2020-09-07 00:02] LABS: INTERNATIONAL NORMALIZED RATIO 3.24 (0.93-1.1); PROTHROMBIN TIME 33.9 Seconds (9.6-11.5)
[2020-09-07] MEDS ORDERED: HEPARIN 5,000 UNITS/ML, 1ML ONE (01:09)
[2020-09-07 01:28] VITALS: BP 152/93
[2020-09-07] MEDS ORDERED: ALBUTEROL HFA 90 MCG/SPRAY INH PRN (01:30)
[2020-09-07 05:45] VITALS: BP 111/73
[2020-09-07] MEDS: CARVEDILOL 12.5 MG TABLET PO SCH ×2 (05:47→17:54)
[2020-09-07 06:12] LABS: BASOPHILS % (AUTO) 0 % (0-1); EOSINOPHILS % (AUTO) 0 % (1-7); LYMPHOCYTES % (AUTO) 10 % (22-44); MEAN CORPUSCULAR HEMOGLOBIN 27.6 pg (27.5-34.5); MEAN CORPUSCULAR HGB CONC 31.6 g/dL (33.2-36.2); MEAN PLATELET VOLUME 6.8 fL (7.4-10.4); MONOCYTES % (AUTO) 2 % (2-9); NEUTROPHILS % (AUTO) 88 % (42-75); PLATELET COUNT 184 x10^3/uL (130-400); RED BLOOD COUNT 3.21 x10^6/uL (4.38-5.82); RED CELL DISTRIBUTION WIDTH 27.8 % (9.4-14.8)
[2020-09-07 06:18] LABS: CHLORIDE 103 mmol/L (98-107)
[2020-09-07 06:29] LABS: MD SCAN
[2020-09-07 06:33] LABS: ANION GAP 2 mmol/L (5-15); CALCIUM 7.7 mg/dL (8.5-10.1); CREATININE 0.55 mg/dL (0.7-1.3)
[2020-09-07 07:56] VITALS: BP 119/75
[2020-09-07] MEDS: LISINOPRIL 20 MG TABLET PO SCH ×2 (08:12→21:06)
[2020-09-07] MEDS: methylPREDNISolone SOD SUCC 40 MG/ML IV SCH ×3 (08:12→21:05)
[2020-09-07] MEDS: GABAPENTIN 100 MG CAPSULE PO SCH ×3 (08:12→21:06)
[2020-09-07] MEDS: FERROUS SULFATE 325 MG TABLET PO SCH ×2 (08:13→16:17)
[2020-09-07] MEDS: NICOTINE 14MG/24 HR PATCH.TD24 TD SCH (08:13)
[2020-09-07] MEDS: AZITHROMYCIN 250 MG TABLET PO SCH (08:13)
[2020-09-07] MEDS: PANTOPRAZOLE 40MG TABLET PO SCH ×2 (08:13→21:06)
[2020-09-07] MEDS: THIAMINE 100MG TABLET PO SCH (08:13)
[2020-09-07] MEDS: SODIUM CHLORIDE FLUSH 10ML SYR IVF SCH ×2 (08:14→21:06)
[2020-09-07] MEDS: TIOTROPIUM BROMIDE 18 MCG/INH INH SCH (12:12)
[2020-09-07] MEDS: FLUTICASONE/VILANTEROL 100-25MCG/INH INH SCH (13:15)
[2020-09-07] MEDS: ALBUTEROL HFA 90 MCG/SPRAY INH SCH ×3 (13:16→21:00)
[2020-09-07 15:12] VITALS: BP 123/73
[2020-09-07 17:25] LABS: OSMOLALITY,URINE 347 mOsm/kg (500-850)
[2020-09-07] MEDS ORDERED: WARFARIN 2 MG TABLET PO-COUM ONE (18:00)
[2020-09-07 19:42] VITALS: BP 147/89
[2020-09-08 01:34] VITALS: BP 134/72
[2020-09-08] MEDS: methylPREDNISolone SOD SUCC 40 MG/ML IV SCH ×4 (01:54→22:35)
[2020-09-08 05:18] LABS: BASOPHILS % (AUTO) 0 % (0-1); EOSINOPHILS % (AUTO) 0 % (1-7); LYMPHOCYTES % (AUTO) 10 % (22-44); MEAN CORPUSCULAR HEMOGLOBIN 27.8 pg (27.5-34.5); MEAN CORPUSCULAR HGB CONC 32.2 g/dL (33.2-36.2); MEAN PLATELET VOLUME 7.3 fL (7.4-10.4); MONOCYTES % (AUTO) 4 % (2-9); NEUTROPHILS % (AUTO) 85 % (42-75); PLATELET COUNT 169 x10^3/uL (130-400); RED BLOOD COUNT 2.94 x10^6/uL (4.38-5.82); RED CELL DISTRIBUTION WIDTH 27.1 % (9.4-14.8)
[2020-09-08 05:20] LABS: PROTHROMBIN TIME 31.5 Seconds (9.6-11.5)
[2020-09-08 05:24] LABS: ALBUMIN 2.7 g/dL (3.4-5.0); ANION GAP 4 mmol/L (5-15); CALCIUM 8.1 mg/dL (8.5-10.1); CHLORIDE 105 mmol/L (98-107)
[2020-09-08 05:28] LABS: ALANINE AMINOTRANSFERASE 26 U/L (12-78); ALKALINE PHOSPHATASE 56 U/L (45-117); BILIRUBIN,TOTAL 0.2 mg/dL (0.2-1.0); CREATININE 0.67 mg/dL (0.7-1.3); TOTAL PROTEIN 5.4 g/dL (6.4-8.2)
[2020-09-08 05:30] LABS: MD NO
[2020-09-08] MEDS: CARVEDILOL 12.5 MG TABLET PO SCH ×2 (05:52→17:06)
[2020-09-08] MEDS: ALBUTEROL HFA 90 MCG/SPRAY INH SCH ×3 (07:50→19:48)
[2020-09-08] MEDS: TIOTROPIUM BROMIDE 18 MCG/INH INH SCH (08:03)
[2020-09-08] MEDS: FLUTICASONE/VILANTEROL 100-25MCG/INH INH SCH (08:03)
[2020-09-08] MEDS ORDERED: MAGNESIUM SULFATE PMX 2GM/50ML 50 ML IV ONE ×2 (08:30→10:30)
[2020-09-08 08:39] VITALS: BP 157/87
[2020-09-08] MEDS: FERROUS SULFATE 325 MG TABLET PO SCH ×2 (08:40→17:07)
[2020-09-08] MEDS: GABAPENTIN 100 MG CAPSULE PO SCH ×3 (08:40→20:09)
[2020-09-08] MEDS: AZITHROMYCIN 250 MG TABLET PO SCH (08:40)
[2020-09-08] MEDS: LISINOPRIL 20 MG TABLET PO SCH ×2 (08:40→20:09)
[2020-09-08] MEDS: CEFTRIAXONE PMX 1GM/50ML 50 ML IV SCH (08:40)
[2020-09-08] MEDS: THIAMINE 100MG TABLET PO SCH (08:41)
[2020-09-08] MEDS: PANTOPRAZOLE 40MG TABLET PO SCH ×2 (08:41→20:09)
[2020-09-08] MEDS: SODIUM CHLORIDE FLUSH 10ML SYR IVF SCH ×2 (08:41→20:09)
[2020-09-08] MEDS: NICOTINE 14MG/24 HR PATCH.TD24 TD SCH (08:42)
[2020-09-08 08:48] LABS: D-DIMER 0.48 ug/mlFEU (0.00-0.52)
[2020-09-08 09:28] LABS: RAPID INFLUENZA A Negative (Negative); RAPID INFLUENZA B Negative (Negative)
[2020-09-08 12:35] VITALS: BP 165/98
[2020-09-08] MEDS ORDERED: WARFARIN 2 MG TABLET PO-COUM ONE (18:00)
[2020-09-08 19:29] VITALS: BP 149/84
[2020-09-08] MEDS ORDERED: OMNIPAQUE 350 MG/ML, 100ML BOTTLE ONE (22:52)
[2020-09-09] VITALS (10 sets, daily range): BP systolic 145–194; BP diastolic 81–125
[2020-09-09 05:12] LABS: BASOPHILS % (AUTO) 0 % (0-1); EOSINOPHILS % (AUTO) 0 % (1-7); LYMPHOCYTES % (AUTO) 3 % (22-44); MEAN CORPUSCULAR HEMOGLOBIN 27.9 pg (27.5-34.5); MEAN CORPUSCULAR HGB CONC 32.2 g/dL (33.2-36.2); MEAN PLATELET VOLUME 7.2 fL (7.4-10.4); MONOCYTES % (AUTO) 4 % (2-9); NEUTROPHILS % (AUTO) 93 % (42-75); PLATELET COUNT 166 x10^3/uL (130-400); RED BLOOD COUNT 2.97 x10^6/uL (4.38-5.82); RED CELL DISTRIBUTION WIDTH 26.5 % (9.4-14.8)
[2020-09-09 05:13] LABS: CHLORIDE 103 mmol/L (98-107)
[2020-09-09 05:15] LABS: INTERNATIONAL NORMALIZED RATIO 2.8 (0.93-1.1); PROTHROMBIN TIME 29.4 Seconds (9.6-11.5)
[2020-09-09] MEDS: CARVEDILOL 12.5 MG TABLET PO SCH ×2 (05:21→17:15)
[2020-09-09 05:23] LABS: ALANINE AMINOTRANSFERASE 22 U/L (12-78); ALBUMIN 2.8 g/dL (3.4-5.0); ALKALINE PHOSPHATASE 62 U/L (45-117); ANION GAP 4 mmol/L (5-15); BILIRUBIN,TOTAL 0.3 mg/dL (0.2-1.0); CALCIUM 8.3 mg/dL (8.5-10.1); CREATININE 0.67 mg/dL (0.7-1.3); TOTAL PROTEIN 5.4 g/dL (6.4-8.2)
[2020-09-09 06:26] LABS: MD MORPH REVIEW ONLY
[2020-09-09 06:27] LABS: ANISOCYTOSIS 2+; OVALOCYTES 1+
[2020-09-09 06:28] LABS: <PLATELET ESTIMATE> ADEQUATE; <PLT MORPHOLOGY> NORMAL PLT MORPH; TEAR DROPS 1+
[2020-09-09 06:32] LABS: BASOPHILLIC STIPPLING 1+; MICROCYTOSIS 1+
[2020-09-09] MEDS ORDERED: MAGNESIUM SULFATE PMX 2GM/50ML 50 ML IV ONE ×2 (08:00→15:00)
[2020-09-09] MEDS: CEFTRIAXONE PMX 1GM/50ML 50 ML IV SCH (08:53)
[2020-09-09] MEDS: GUAIFENESIN/DM 200-20MG, 10ML UDC PO PRN (08:55)
[2020-09-09] MEDS: SODIUM CHLORIDE FLUSH 10ML SYR IVF SCH ×2 (08:55→20:13)
[2020-09-09] MEDS: AZITHROMYCIN 250 MG TABLET PO SCH (08:55)
[2020-09-09] MEDS: NICOTINE 14MG/24 HR PATCH.TD24 TD SCH ×2 (08:55→09:00)
[2020-09-09] MEDS: THIAMINE 100MG TABLET PO SCH (08:55)
[2020-09-09] MEDS: methylPREDNISolone SOD SUCC 40 MG/ML IV SCH ×3 (08:56→23:34)
[2020-09-09] MEDS: GABAPENTIN 100 MG CAPSULE PO SCH ×3 (08:56→20:13)
[2020-09-09] MEDS: ACETAMINOPHEN 325 MG TABLET PO PRN (08:56)
[2020-09-09] MEDS: PANTOPRAZOLE 40MG TABLET PO SCH ×2 (08:57→20:14)
[2020-09-09] MEDS: FERROUS SULFATE 325 MG TABLET PO SCH ×2 (08:57→15:58)
[2020-09-09] MEDS: LISINOPRIL 20 MG TABLET PO SCH ×2 (08:57→20:14)
[2020-09-09] MEDS: FLUTICASONE/VILANTEROL 100-25MCG/INH INH SCH (09:00)
[2020-09-09] MEDS: TIOTROPIUM BROMIDE 18 MCG/INH INH SCH (09:00)
[2020-09-09] MEDS: ALBUTEROL HFA 90 MCG/SPRAY INH SCH ×3 (09:00→19:04)
[2020-09-09] MEDS: LACTATED RINGERS 1,000 ML IV SCH ×2 (09:01→20:11)
[2020-09-09] MEDS ORDERED: ENALAPRILAT 1.25 MG/ML, 1ML IV PRN (15:00)
[2020-09-09 15:57] LABS: TROPONIN I < 0.015 ng/mL (0.000-0.045)
[2020-09-09] MEDS ORDERED: WARFARIN 2 MG TABLET PO-COUM ONE (18:00)
[2020-09-09] MEDS ORDERED: AMLODIPINE 5 MG TABLET PO ONE (19:30)
[2020-09-10] VITALS (7 sets, daily range): BP systolic 133–169; BP diastolic 88–104
[2020-09-10 04:57] LABS: INTERNATIONAL NORMALIZED RATIO 2.47 (0.93-1.1)
[2020-09-10] MEDS: LACTATED RINGERS 1,000 ML IV SCH (05:00)
[2020-09-10] MEDS: CARVEDILOL 12.5 MG TABLET PO SCH ×2 (05:28→17:58)
[2020-09-10 07:46] LABS: BASOPHILS % (AUTO) 0 % (0-1); EOSINOPHILS % (AUTO) 0 % (1-7); LYMPHOCYTES % (AUTO) 3 % (22-44); MEAN CORPUSCULAR HEMOGLOBIN 28.2 pg (27.5-34.5); MEAN CORPUSCULAR HGB CONC 32.4 g/dL (33.2-36.2); MEAN PLATELET VOLUME 6.8 fL (7.4-10.4); MONOCYTES % (AUTO) 4 % (2-9); NEUTROPHILS % (AUTO) 93 % (42-75); PLATELET COUNT 117 x10^3/uL (130-400)
[2020-09-10 07:48] LABS: MD NO
[2020-09-10 07:51] LABS: ALANINE AMINOTRANSFERASE 25 U/L (12-78); ALBUMIN 2.6 g/dL (3.4-5.0); C-REACTIVE PROTEIN, QUANT 0.28 mg/dL (0.02-0.49); CALCIUM 8.1 mg/dL (8.5-10.1); CHLORIDE 99 mmol/L (98-107); CREATININE 0.61 mg/dL (0.7-1.3)
[2020-09-10 07:56] LABS: ALKALINE PHOSPHATASE 63 U/L (45-117); BILIRUBIN,TOTAL 0.4 mg/dL (0.2-1.0); TOTAL PROTEIN 5.4 g/dL (6.4-8.2)
[2020-09-10 07:59] LABS: ANION GAP 4 mmol/L (5-15)
[2020-09-10 08:11] LABS: D-DIMER 0.7 ug/mlFEU (0.00-0.52)
[2020-09-10] MEDS ORDERED: DEXAMETHASONE 4 MG TABLET PO SCH (09:00)
[2020-09-10] MEDS: SODIUM CHLORIDE FLUSH 10ML SYR IVF SCH ×2 (09:00→21:00)
[2020-09-10] MEDS: CHOLECALCIFEROL 5,000u TAB PO SCH (09:00)
[2020-09-10] MEDS: ALBUTEROL HFA 90 MCG/SPRAY INH SCH ×3 (09:00→21:00)
[2020-09-10] MEDS: CEFTRIAXONE PMX 1GM/50ML 50 ML IV SCH (09:10)
[2020-09-10] MEDS: PANTOPRAZOLE 40MG TABLET PO SCH ×2 (09:11→20:59)
[2020-09-10] MEDS: LISINOPRIL 20 MG TABLET PO SCH ×2 (09:11→21:00)
[2020-09-10] MEDS: NICOTINE 14MG/24 HR PATCH.TD24 TD SCH (09:12)
[2020-09-10] MEDS: ZINC SULFATE 220 MG CAPSULE PO SCH (09:12)
[2020-09-10] MEDS: GABAPENTIN 100 MG CAPSULE PO SCH ×3 (09:12→20:59)
[2020-09-10] MEDS: THIAMINE 100MG TABLET PO SCH (09:13)
[2020-09-10] MEDS: ASCORBIC ACID 500 MG TABLET PO SCH ×2 (09:13→16:13)
[2020-09-10] MEDS: FERROUS SULFATE 325 MG TABLET PO SCH ×2 (09:13→16:12)
[2020-09-10] MEDS: FLUTICASONE/VILANTEROL 100-25MCG/INH INH SCH (09:15)
[2020-09-10] MEDS: TIOTROPIUM BROMIDE 18 MCG/INH INH SCH (09:16)
[2020-09-10] MEDS ORDERED: POLYETHYLENE GLYCOL 17 GM PACKET PO ONE (18:00)
[2020-09-10] MEDS ORDERED: WARFARIN 2 MG TABLET PO-COUM ONE (18:00)
[2020-09-10] MEDS: ACETAMINOPHEN 325 MG TABLET PO PRN (21:05)
[2020-09-10] MEDS: GUAIFENESIN/DM 200-20MG, 10ML UDC PO PRN (21:05)
[2020-09-11 01:30] VITALS: BP 146/94
[2020-09-11 05:46] LABS: BASOPHILS % (AUTO) 0 % (0-1); EOSINOPHILS % (AUTO) 0 % (1-7); LYMPHOCYTES % (AUTO) 8 % (22-44); MEAN CORPUSCULAR HEMOGLOBIN 27.9 pg (27.5-34.5); MEAN CORPUSCULAR HGB CONC 32.4 g/dL (33.2-36.2); MEAN PLATELET VOLUME 8.2 fL (7.4-10.4); MONOCYTES % (AUTO) 8 % (2-9); NEUTROPHILS % (AUTO) 84 % (42-75); PLATELET COUNT 76 x10^3/uL (130-400); RED BLOOD COUNT 3.24 x10^6/uL (4.38-5.82); RED CELL DISTRIBUTION WIDTH 27.8 % (9.4-14.8)
[2020-09-11 05:51] LABS: D-DIMER 1.12 ug/mlFEU (0.00-0.52); INTERNATIONAL NORMALIZED RATIO 1.98 (0.93-1.1); PROTHROMBIN TIME 20.8 Seconds (9.6-11.5)
[2020-09-11] MEDS: ACETAMINOPHEN 325 MG TABLET PO PRN (05:56)
[2020-09-11] MEDS: CARVEDILOL 12.5 MG TABLET PO SCH ×2 (05:56→17:21)
[2020-09-11 07:25] LABS: MD MORPH REVIEW ONLY
[2020-09-11 07:26] LABS: <PLATELET ESTIMATE> DECREASED; <PLT MORPHOLOGY> NORMAL PLT MORPH; ANISOCYTOSIS 2+; HYPOCHROMIA 1+; MICROCYTOSIS 1+; OVALOCYTES 1+; TEAR DROPS 1+
[2020-09-11 07:27] LABS: SCHISTOCYTES 1+; SPHEROCYTES 1+
[2020-09-11 07:42] VITALS: BP 137/88
[2020-09-11] MEDS: CEFTRIAXONE PMX 1GM/50ML 50 ML IV SCH (08:45)
[2020-09-11] MEDS: GABAPENTIN 100 MG CAPSULE PO SCH ×3 (08:46→20:29)
[2020-09-11] MEDS: FERROUS SULFATE 325 MG TABLET PO SCH ×2 (08:46→17:21)
[2020-09-11] MEDS: DEXAMETHASONE 4 MG TABLET PO SCH (08:46)
[2020-09-11] MEDS: ASCORBIC ACID 500 MG TABLET PO SCH ×2 (08:46→17:22)
[2020-09-11] MEDS: PANTOPRAZOLE 40MG TABLET PO SCH ×2 (08:46→20:29)
[2020-09-11] MEDS: ZINC SULFATE 220 MG CAPSULE PO SCH (08:46)
[2020-09-11] MEDS: THIAMINE 100MG TABLET PO SCH (08:46)
[2020-09-11] MEDS: CHOLECALCIFEROL 5,000u TAB PO SCH (08:46)
[2020-09-11] MEDS: LISINOPRIL 20 MG TABLET PO SCH ×2 (08:46→20:29)
[2020-09-11] MEDS: SODIUM CHLORIDE FLUSH 10ML SYR IVF SCH ×2 (08:48→20:30)
[2020-09-11] MEDS: TIOTROPIUM BROMIDE 18 MCG/INH INH SCH (08:50)
[2020-09-11] MEDS: FLUTICASONE/VILANTEROL 100-25MCG/INH INH SCH (08:50)
[2020-09-11] MEDS: ALBUTEROL HFA 90 MCG/SPRAY INH SCH ×3 (08:50→20:30)
[2020-09-11] MEDS ORDERED: FUROSEMIDE 20 MG/2 ML IV ONE (10:30)
[2020-09-11 12:21] VITALS: BP 138/94
[2020-09-11] MEDS ORDERED: WARFARIN 3 MG TABLET PO-COUM ONE (18:00)
[2020-09-11 19:12] VITALS: BP 146/93
[2020-09-12 01:08] VITALS: BP 147/92
[2020-09-12 05:39] LABS: MEAN CORPUSCULAR HEMOGLOBIN 27.9 pg (27.5-34.5); MEAN CORPUSCULAR HGB CONC 32.3 g/dL (33.2-36.2); MEAN PLATELET VOLUME 8.4 fL (7.4-10.4); PLATELET COUNT 66 x10^3/uL (130-400); RED CELL DISTRIBUTION WIDTH 26.9 % (9.4-14.8)
[2020-09-12] MEDS: CARVEDILOL 12.5 MG TABLET PO SCH ×2 (05:39→16:55)
[2020-09-12 05:51] LABS: ALANINE AMINOTRANSFERASE 37 U/L (12-78); ALBUMIN 2.4 g/dL (3.4-5.0); ANION GAP 4 mmol/L (5-15); CALCIUM 8.6 mg/dL (8.5-10.1); CHLORIDE 95 mmol/L (98-107)
[2020-09-12 05:54] LABS: ALKALINE PHOSPHATASE 69 U/L (45-117); BILIRUBIN,TOTAL 0.5 mg/dL (0.2-1.0); CREATININE 0.72 mg/dL (0.7-1.3); TOTAL PROTEIN 5.4 g/dL (6.4-8.2)
[2020-09-12 05:55] LABS: INTERNATIONAL NORMALIZED RATIO 1.44 (0.93-1.1); PROTHROMBIN TIME 15.2 Seconds (9.6-11.5)
[2020-09-12 06:13] LABS: MD YES
[2020-09-12 06:17] LABS: ANISOCYTOSIS 2+; BAND#(MANUAL) 0.17 x10^3/uL; BANDS%(MANUAL) 2 % (0-7); HYPOCHROMIA 1+; LYMPH#(MANUAL) 0.85 x10^3/uL (1-3.4); LYMPHS% (MANUAL) 10 % (22-44); METAMYELOCYTES# (MANUAL) 0.43 x10^3/uL (0-0); METAMYELOCYTES% (MANUAL) 5 % (0-1); MICROCYTOSIS 1+; MONOS#(MANUAL) 0.68 x10^3/uL (0.3-2.7); MONOS% (MANUAL) 8 % (2-9); MYELOCYTES# (MANUAL) 0.09 x10^3/uL (0-0); MYELOCYTES% (MANUAL) 1 % (0-0); OVALOCYTES 1+; SEG#(MANUAL) 6.29 x10^3/uL (1.8-6.8); SEGS% (MANUAL) 74 % (42-75)
[2020-09-12 06:18] LABS: <PLATELET ESTIMATE> DECREASED; <PLT MORPHOLOGY> NORMAL PLT MORPH; SCHISTOCYTES 1+; TEAR DROPS 1+
[2020-09-12 07:59] VITALS: BP 165/94
[2020-09-12] MEDS ORDERED: MAGNESIUM SULFATE PMX 4GM/100M 100 ML IVPB ONE (08:00)
[2020-09-12] MEDS: ALBUTEROL HFA 90 MCG/SPRAY INH SCH ×3 (09:00→20:18)
[2020-09-12] MEDS: ASCORBIC ACID 500 MG TABLET PO SCH ×2 (09:25→16:54)
[2020-09-12] MEDS: POTASSIUM CHLORIDE 20 MEQ TAB.ER.PRT PO SCH ×2 (09:25→16:55)
[2020-09-12] MEDS: THIAMINE 100MG TABLET PO SCH (09:25)
[2020-09-12] MEDS: ZINC SULFATE 220 MG CAPSULE PO SCH (09:25)
[2020-09-12] MEDS: CHOLECALCIFEROL 5,000u TAB PO SCH (09:25)
[2020-09-12] MEDS: FERROUS SULFATE 325 MG TABLET PO SCH ×2 (09:25→16:55)
[2020-09-12] MEDS: LISINOPRIL 20 MG TABLET PO SCH ×2 (09:26→20:17)
[2020-09-12] MEDS: DEXAMETHASONE 4 MG TABLET PO SCH (09:26)
[2020-09-12] MEDS: GABAPENTIN 100 MG CAPSULE PO SCH ×3 (09:27→20:17)
[2020-09-12] MEDS: CEFTRIAXONE PMX 1GM/50ML 50 ML IV SCH (09:27)
[2020-09-12] MEDS: PANTOPRAZOLE 40MG TABLET PO SCH ×2 (09:27→20:17)
[2020-09-12] MEDS: SODIUM CHLORIDE FLUSH 10ML SYR IVF SCH ×2 (09:34→20:18)
[2020-09-12] MEDS: FLUTICASONE/VILANTEROL 100-25MCG/INH INH SCH (09:34)
[2020-09-12] MEDS: TIOTROPIUM BROMIDE 18 MCG/INH INH SCH (10:34)
[2020-09-12 12:07] VITALS: BP 141/93
[2020-09-12] MEDS ORDERED: WARFARIN 10 MG TABLET PO-COUM ONE (18:00)
[2020-09-12 19:39] VITALS: BP 148/98
[2020-09-13 01:28] VITALS: BP 144/95
[2020-09-13] MEDS: CARVEDILOL 12.5 MG TABLET PO SCH ×2 (05:07→17:27)
[2020-09-13 06:25] LABS: INTERNATIONAL NORMALIZED RATIO 1.3 (0.93-1.1); PROTHROMBIN TIME 13.7 Seconds (9.6-11.5)
[2020-09-13 07:00] VITALS: BP 114/83
[2020-09-13 07:43] LABS: MEAN CORPUSCULAR HGB CONC 32.2 g/dL (33.2-36.2); MEAN PLATELET VOLUME 8.9 fL (7.4-10.4); PLATELET COUNT 76 x10^3/uL (130-400); RED BLOOD COUNT 3.22 x10^6/uL (4.38-5.82); RED CELL DISTRIBUTION WIDTH 27.6 % (9.4-14.8)
[2020-09-13 07:49] LABS: ANION GAP 3 mmol/L (5-15); CALCIUM 8.9 mg/dL (8.5-10.1); CHLORIDE 100 mmol/L (98-107); CREATININE 0.52 mg/dL (0.7-1.3)
[2020-09-13 08:26] LABS: MD YES
[2020-09-13 08:33] LABS: BAND#(MANUAL) 0.13 x10^3/uL; BANDS%(MANUAL) 2 % (0-7); LYMPH#(MANUAL) 0.82 x10^3/uL (1-3.4); LYMPHS% (MANUAL) 13 % (22-44); METAMYELOCYTES# (MANUAL) 0.06 x10^3/uL (0-0); METAMYELOCYTES% (MANUAL) 1 % (0-1); MONOS% (MANUAL) 8 % (2-9); SEG#(MANUAL) 4.79 x10^3/uL (1.8-6.8); SEGS% (MANUAL) 76 % (42-75)
[2020-09-13 08:34] LABS: ANISOCYTOSIS 2+; HYPOCHROMIA 1+; MICROCYTOSIS 1+; OVALOCYTES 1+; POLYCHROMASIA 1+; SPHEROCYTES 1+; TEAR DROPS 1+
[2020-09-13 08:35] LABS: <PLATELET ESTIMATE> DECREASED; <PLT MORPHOLOGY> NORMAL PLT MORPH; SCHISTOCYTES 1+
[2020-09-13] MEDS: FLUTICASONE/VILANTEROL 100-25MCG/INH INH SCH (08:53)
[2020-09-13] MEDS: TIOTROPIUM BROMIDE 18 MCG/INH INH SCH (08:54)
[2020-09-13] MEDS: PANTOPRAZOLE 40MG TABLET PO SCH ×2 (08:56→21:00)
[2020-09-13] MEDS: CEFTRIAXONE PMX 1GM/50ML 50 ML IV SCH (08:56)
[2020-09-13] MEDS: GABAPENTIN 100 MG CAPSULE PO SCH ×3 (08:57→21:00)
[2020-09-13] MEDS: CHOLECALCIFEROL 5,000u TAB PO SCH (08:57)
[2020-09-13] MEDS: THIAMINE 100MG TABLET PO SCH (08:57)
[2020-09-13] MEDS: POTASSIUM CHLORIDE 20 MEQ TAB.ER.PRT PO SCH ×2 (08:57→15:59)
[2020-09-13] MEDS: DEXAMETHASONE 4 MG TABLET PO SCH (08:57)
[2020-09-13] MEDS: ZINC SULFATE 220 MG CAPSULE PO SCH (08:57)
[2020-09-13] MEDS: LISINOPRIL 20 MG TABLET PO SCH ×2 (08:57→21:00)
[2020-09-13] MEDS: ALBUTEROL HFA 90 MCG/SPRAY INH SCH ×3 (08:58→21:00)
[2020-09-13] MEDS: ASCORBIC ACID 500 MG TABLET PO SCH ×2 (08:58→15:59)
[2020-09-13] MEDS: SODIUM CHLORIDE FLUSH 10ML SYR IVF SCH ×2 (08:58→21:00)
[2020-09-13] MEDS: FERROUS SULFATE 325 MG TABLET PO SCH ×2 (08:58→15:59)
[2020-09-13] MEDS ORDERED: CEFD300C37 PO (11:38)
[2020-09-13] MEDS ORDERED: CARV12.52 PO (11:38)
[2020-09-13] MEDS ORDERED: ALBU18HF INH (11:38)
[2020-09-13] MEDS ORDERED: FLUT1AER INH (11:38)
[2020-09-13] MEDS ORDERED: CHOL500045 PO (11:38)
[2020-09-13] MEDS ORDERED: LISI-170 PO (11:38)
[2020-09-13] MEDS ORDERED: ASCO500T9 PO (11:38)
[2020-09-13] MEDS ORDERED: DEXA4TAB66 PO (11:38)
[2020-09-13] MEDS ORDERED: FURO-93 PO (11:41)
[2020-09-13] MEDS ORDERED: POTA25TA PO (11:43)
[2020-09-13 12:05] VITALS: BP 141/98
[2020-09-13] MEDS ORDERED: APIX5TAB PO (13:00)
[2020-09-13 20:11] VITALS: BP 140/82
[2020-09-13] MEDS: APIXABAN 5 MG TABLET PO SCH (21:00)
[2020-09-13] MEDS: ACETAMINOPHEN 325 MG TABLET PO PRN (21:05)
[2020-09-14 01:04] VITALS: BP 129/88
[2020-09-14] MEDS: CARVEDILOL 12.5 MG TABLET PO SCH ×2 (05:35→17:07)
[2020-09-14 06:32] LABS: INTERNATIONAL NORMALIZED RATIO 1.47 (0.93-1.1); PROTHROMBIN TIME 15.5 Seconds (9.6-11.5)
[2020-09-14 07:35] VITALS: BP 135/92
[2020-09-14] MEDS ORDERED: MAGNESIUM OXIDE 400 MG TABLET PO SCH (10:30)
[2020-09-14] MEDS: CHOLECALCIFEROL 5,000u TAB PO SCH (10:38)
[2020-09-14] MEDS: DEXAMETHASONE 4 MG TABLET PO SCH (10:38)
[2020-09-14] MEDS: ZINC SULFATE 220 MG CAPSULE PO SCH (10:38)
[2020-09-14] MEDS: LISINOPRIL 20 MG TABLET PO SCH ×2 (10:38→20:36)
[2020-09-14] MEDS: THIAMINE 100MG TABLET PO SCH (10:38)
[2020-09-14] MEDS: CEFDINIR 300 MG CAPSULE PO SCH ×2 (10:38→20:36)
[2020-09-14] MEDS: ASCORBIC ACID 500 MG TABLET PO SCH ×2 (10:38→17:07)
[2020-09-14] MEDS: FERROUS SULFATE 325 MG TABLET PO SCH ×2 (10:38→17:08)
[2020-09-14] MEDS: PANTOPRAZOLE 40MG TABLET PO SCH ×2 (10:39→20:36)
[2020-09-14] MEDS: POTASSIUM CHLORIDE 20 MEQ TAB.ER.PRT PO SCH ×2 (10:39→17:07)
[2020-09-14] MEDS: GABAPENTIN 100 MG CAPSULE PO SCH ×3 (10:39→20:37)
[2020-09-14] MEDS: APIXABAN 5 MG TABLET PO SCH ×2 (10:39→20:37)
[2020-09-14] MEDS: ALBUTEROL HFA 90 MCG/SPRAY INH SCH ×3 (10:41→20:37)
[2020-09-14] MEDS: FLUTICASONE/VILANTEROL 100-25MCG/INH INH SCH (10:41)
[2020-09-14] MEDS: TIOTROPIUM BROMIDE 18 MCG/INH INH SCH (10:44)
[2020-09-14] MEDS: SODIUM CHLORIDE FLUSH 10ML SYR IVF SCH ×2 (10:45→20:37)
[2020-09-14] MEDS: ACETAMINOPHEN 325 MG TABLET PO PRN (10:49)
[2020-09-14 14:38] VITALS: BP 126/85
[2020-09-14 19:38] VITALS: BP 127/90
[2020-09-14] MEDS ORDERED: ALUMINUM/MAG/SIMETHICONE 30 ML UDC PO PRN (20:30)
== END 2020-09-14 21:23 | disposition home or self-care (01) | DRG 177 ==
LOC: ED 19:54 → EDIP 22:54 → 5SO 09-07 00:53 → ICU 09-08 12:50 → 4EST 09-10 16:43
PROVIDERS: ADMIT Family Medicine; ATTEND Hospitalist
DX: U07.1 COVID-19 (principal); J96.01 Acute respiratory failure with hypoxia; E87.1 Hypo-osmolality and hyponatremia; J44.1 Chronic obstructive pulmonary disease with (acute) exacerbation; D64.9 Anemia, unspecified; D69.6 Thrombocytopenia, unspecified; E11.649 Type 2 diabetes mellitus with hypoglycemia without coma; E83.42 Hypomagnesemia; E87.6 Hypokalemia; F17.210 Nicotine dependence, cigarettes, uncomplicated; I10 Essential (primary) hypertension; E78.5 Hyperlipidemia, unspecified; J45.909 Unspecified asthma, uncomplicated; I48.91 Unspecified atrial fibrillation; J98.4 Other disorders of lung; K70.9 Alcoholic liver disease, unspecified; Z79.01 Long term (current) use of anticoagulants; Z79.899 Other long term (current) drug therapy; Z87.01 Personal history of pneumonia (recurrent); Z90.49 Acquired absence of other specified parts of digestive tract; Z91.013 Allergy to seafood; Z91.018 Allergy to other foods; Z82.49 Family history of ischemic heart disease and other diseases of the circulatory system
CPT/HCPCS: 36415; 71045; 71275; 80048; 80053; 82962; 83540; 83550; 83605; 83615; 83735; 83880; 83930; 83935; 84100; 84145; 84484; 85025; 85362; 85379; 85384; 85610; 85730; 86140; 87040; 87070; 87205; 87400; 93005; 93306; 94060; 94640; 96374; 99285; G0378; J0696; J1644; J3480; Q9967; J1940; J2920; J2930; J3475; J7030; J7040; J7120; U0003

== ENCOUNTER 2020-10-03 10:53 | Inpatient (IN) | payer MEDICAID ==
[~2020-10-03] VITALS: Ht 190.5 cm; Wt 80.7 kg
[~2020-10-03 10:53] MED LIST changes: +ALBU18HF INH; +APIX5TAB PO; +ASCO500T9 PO; +CHOL500045 PO; +DEXA4TAB66 PO; +FURO-93 PO; +POTA25TA PO
--- NOTE | 2020-10-03 11:12 | NUR ---
PT CAME IN CO OF SOB. PT HAS HX OF COPD AND WAS FEELING SOB AND CALLED 911. PER EMS HIS RM AIR SAT WAS 89% ON ARRIVAL. EMS GAVE HIM ALBUTEROL, DUONEB AND 125MG SOLUMEDROL. PT RM AIR SAT IS 94% CURRENTLY. PT RESTING COMFORTABLY IN [facility]. CONNECTED TO MONITORING EQUIPMENT. PT REPORTS HE HAD A NEGATIVE COVID RESULT ON Sep
[2020-10-03] MEDS ORDERED: ALBUTEROL/IPRATROPIUM 2.5MG/0.5MG, 3 ML ONE (12:56)
[2020-10-03 12:58] LABS: MEAN CORPUSCULAR HEMOGLOBIN 28.3 pg (27.5-34.5); MEAN CORPUSCULAR HGB CONC 33.1 g/dL (33.2-36.2); MEAN PLATELET VOLUME 6.7 fL (7.4-10.4); PLATELET COUNT 486 x10^3/uL (130-400); RED BLOOD COUNT 3.53 x10^6/uL (4.38-5.82); RED CELL DISTRIBUTION WIDTH 23.3 % (9.4-14.8)
[2020-10-03] MEDS ORDERED: SODIUM CHLORIDE FLUSH 10ML SYR IVF ONE (13:00)
[2020-10-03] MEDS ORDERED: ALBUTEROL/IPRATROPIUM 2.5MG/0.5MG, 3 ML NPPB ONE (13:00)
--- NOTE | 2020-10-03 13:05 | NUR ---
PT GIVEN BREATHING TREATMENT. PT TOLERATING WELL.
[2020-10-03 13:08] LABS: ALANINE AMINOTRANSFERASE 18 U/L (12-78); ALBUMIN 2.4 g/dL (3.4-5.0); ANION GAP 7 mmol/L (5-15); CALCIUM 7.8 mg/dL (8.5-10.1); CHLORIDE 102 mmol/L (98-107)
[2020-10-03 13:13] LABS: ALKALINE PHOSPHATASE 112 U/L (45-117); BILIRUBIN,TOTAL 0.3 mg/dL (0.2-1.0); CREATININE 0.88 mg/dL (0.7-1.3); TOTAL PROTEIN 5.7 g/dL (6.4-8.2); TROPONIN I < 0.015 ng/mL (0.000-0.045)
[2020-10-03 13:38] LABS: INTERNATIONAL NORMALIZED RATIO 9.98 (0.93-1.1); PROTHROMBIN TIME 103.4 Seconds (9.6-11.5)
--- NOTE | 2020-10-03 13:57 | NUR ---
PT RESTING IN [facility]. NAD. NO NEEDS AT THIS TIME
--- NOTE | 2020-10-03 14:17 | NUR ---
PT PROVIDED WITH APPLE JUICE
[2020-10-03 15:23] LABS: MD YES
[2020-10-03 15:26] LABS: BAND#(MANUAL) 0.47 x10^3/uL; BANDS%(MANUAL) 8 % (0-7); LYMPHS% (MANUAL) 5 % (22-44); METAMYELOCYTES# (MANUAL) 0.06 x10^3/uL (0-0); METAMYELOCYTES% (MANUAL) 1 % (0-1); MONOS#(MANUAL) 0.12 x10^3/uL (0.3-2.7); MONOS% (MANUAL) 2 % (2-9); MYELOCYTES# (MANUAL) 0.06 x10^3/uL (0-0); MYELOCYTES% (MANUAL) 1 % (0-0); SEGS% (MANUAL) 83 % (42-75)
[2020-10-03 15:27] LABS: ANISOCYTOSIS 1+; HYPOCHROMIA 1+; MICROCYTOSIS 1+; OVALOCYTES 1+; POLYCHROMASIA 1+; SCHISTOCYTES 1+; TEAR DROPS 1+
[2020-10-03 15:28] LABS: <PLATELET ESTIMATE> INCREASED; <PLT MORPHOLOGY> NORMAL PLT MORPH
[2020-10-03] MEDS ORDERED: SODIUM CHLORIDE FLUSH 10ML SYR IVF PRN (15:30)
[2020-10-03] MEDS ORDERED: POLYETHYLENE GLYCOL 17 GM PACKET PO PRN (17:00)
[2020-10-03] MEDS ORDERED: PHYTONADIONE 5 MG TABLET PO ONE (17:00)
[2020-10-03] MEDS ORDERED: SENNA/DOCUSATE TABLET PO PRN (17:00)
[2020-10-03] MEDS ORDERED: DILTIAZEM 120 MG CAP.ER.12H PO SCH (17:00)
[2020-10-03] MEDS ORDERED: ONDANSETRON 2MG/ML, 2ML IVPush PRN (17:00)
[2020-10-03] MEDS ORDERED: ONDANSETRON ODT 4 MG PO PRN (17:00)
[2020-10-03 18:39] VITALS: BP 122/84
[2020-10-03] MEDS: ENOXAPARIN 40 MG/0.4 ML SQ SCH (20:26)
[2020-10-03] MEDS: MIRTAZAPINE 15 MG TABLET PO SCH (20:26)
[2020-10-03] MEDS ORDERED: BUDESONIDE 0.5 MG/2 ML INHA INH SCH (21:00)
[2020-10-03] MEDS ORDERED: methylPREDNISolone SOD SUCC 40 MG/ML IV ONE (21:00)
[2020-10-04 00:38] VITALS: BP 123/83
[2020-10-04 06:01] LABS: MEAN CORPUSCULAR HEMOGLOBIN 28.5 pg (27.5-34.5); MEAN PLATELET VOLUME 7.1 fL (7.4-10.4); PLATELET COUNT 396 x10^3/uL (130-400); RED BLOOD COUNT 3.38 x10^6/uL (4.38-5.82); RED CELL DISTRIBUTION WIDTH 22.9 % (9.4-14.8)
[2020-10-04 06:12] LABS: ALBUMIN 2.4 g/dL (3.4-5.0); ANION GAP 7 mmol/L (5-15); CALCIUM 8.2 mg/dL (8.5-10.1); CHLORIDE 107 mmol/L (98-107)
[2020-10-04 06:17] LABS: ALANINE AMINOTRANSFERASE 16 U/L (12-78); ALKALINE PHOSPHATASE 106 U/L (45-117); BILIRUBIN,TOTAL 0.3 mg/dL (0.2-1.0); TOTAL PROTEIN 5.8 g/dL (6.4-8.2)
[2020-10-04 06:29] LABS: INTERNATIONAL NORMALIZED RATIO 5.53 (0.93-1.1); PROTHROMBIN TIME 57.6 Seconds (9.6-11.5)
[2020-10-04 06:35] LABS: MD YES
[2020-10-04 06:39] LABS: ANISOCYTOSIS 1+; BAND#(MANUAL) 0.17 x10^3/uL; BANDS%(MANUAL) 5 % (0-7); LYMPH#(MANUAL) 0.63 x10^3/uL (1-3.4); LYMPHS% (MANUAL) 19 % (22-44); MICROCYTOSIS 1+; MONOS#(MANUAL) 0.07 x10^3/uL (0.3-2.7); MONOS% (MANUAL) 2 % (2-9); OVALOCYTES 1+; POLYCHROMASIA 1+; SCHISTOCYTES 1+; SEG#(MANUAL) 2.44 x10^3/uL (1.8-6.8); SEGS% (MANUAL) 74 % (42-75)
[2020-10-04 06:40] LABS: <PLATELET ESTIMATE> INCREASED; TEAR DROPS 1+
[2020-10-04 06:42] LABS: <PLT MORPHOLOGY> NORMAL PLT MORPH
[2020-10-04] MEDS: DILTIAZEM 120 MG CAP.ER.24H PO SCH (08:52)
[2020-10-04] MEDS: TIOTROPIUM BROMIDE 18 MCG/INH INH SCH (08:54)
[2020-10-04] MEDS: FLUTICASONE/VILANTEROL 200-25MCG/INH INH SCH (08:54)
[2020-10-04 08:55] VITALS: BP 136/83
[2020-10-04] MEDS: ENOXAPARIN 40 MG/0.4 ML SQ SCH (16:46)
[2020-10-04 16:50] VITALS: BP 123/89
[2020-10-04 19:02] VITALS: BP 126/82
[2020-10-04] MEDS: MIRTAZAPINE 15 MG TABLET PO SCH (22:15)
[2020-10-05 00:45] VITALS: BP 131/87
[2020-10-05 05:18] LABS: BASOPHILS % (AUTO) 0 % (0-1); EOSINOPHILS % (AUTO) 0 % (1-7); LYMPHOCYTES % (AUTO) 12 % (22-44); MEAN CORPUSCULAR HEMOGLOBIN 28.4 pg (27.5-34.5); MEAN CORPUSCULAR HGB CONC 33.1 g/dL (33.2-36.2); MEAN PLATELET VOLUME 7.2 fL (7.4-10.4); MONOCYTES % (AUTO) 8 % (2-9); NEUTROPHILS % (AUTO) 79 % (42-75); PLATELET COUNT 425 x10^3/uL (130-400); RED BLOOD COUNT 3.23 x10^6/uL (4.38-5.82); RED CELL DISTRIBUTION WIDTH 22.3 % (9.4-14.8)
[2020-10-05 05:26] LABS: INTERNATIONAL NORMALIZED RATIO 1.39 (0.93-1.1); PROTHROMBIN TIME 14.7 Seconds (9.6-11.5)
[2020-10-05 05:31] LABS: CHLORIDE 107 mmol/L (98-107)
[2020-10-05 05:40] LABS: ALANINE AMINOTRANSFERASE 16 U/L (12-78); ALBUMIN 2.3 g/dL (3.4-5.0); ALKALINE PHOSPHATASE 97 U/L (45-117); ANION GAP 5 mmol/L (5-15); BILIRUBIN,TOTAL 0.2 mg/dL (0.2-1.0); CALCIUM 8.3 mg/dL (8.5-10.1); CREATININE 0.78 mg/dL (0.7-1.3); TOTAL PROTEIN 5.4 g/dL (6.4-8.2)
[2020-10-05 06:16] LABS: ANISOCYTOSIS 1+; MD MORPH REVIEW ONLY
[2020-10-05 06:17] LABS: ECHINOCYTES 1+; OVALOCYTES 1+; TEAR DROPS 1+
[2020-10-05 06:18] LABS: <PLT MORPHOLOGY> NORMAL PLT MORPH; SCHISTOCYTES 1+
[2020-10-05 06:19] LABS: <PLATELET ESTIMATE> INCREASED
[2020-10-05 09:10] VITALS: BP 148/101
[2020-10-05] MEDS: TIOTROPIUM BROMIDE 18 MCG/INH INH SCH (09:12)
[2020-10-05] MEDS: FLUTICASONE/VILANTEROL 200-25MCG/INH INH SCH (09:12)
[2020-10-05] MEDS: DILTIAZEM 120 MG CAP.ER.24H PO SCH (09:12)
[2020-10-05] MEDS: LISINOPRIL 20 MG TABLET PO SCH (09:13)
[2020-10-05] MEDS: WARFARIN MODERAT DOSE PROTOCOL XX SCH (12:00)
[2020-10-05] MEDS ORDERED: LIDODERM 5% PATCH TD PRN (13:30)
[2020-10-05 14:50] VITALS: BP 135/85
[2020-10-05] MEDS: ACETAMINOPHEN 325 MG TABLET PO PRN (15:35)
[2020-10-05] MEDS: CARVEDILOL 12.5 MG TABLET PO SCH (17:33)
[2020-10-05] MEDS: ENOXAPARIN 40 MG/0.4 ML SQ SCH (17:33)
[2020-10-05] MEDS ORDERED: WARFARIN 7.5 MG TABLET PO-COUM ONE (18:00)
[2020-10-05 19:09] VITALS: BP 133/86
[2020-10-05] MEDS: MIRTAZAPINE 15 MG TABLET PO SCH (20:13)
[2020-10-05] MEDS: ALBUTEROL HFA 90 MCG/SPRAY INH PRN (22:54)
[2020-10-06 01:05] VITALS: BP 130/86
[2020-10-06 05:16] VITALS: BP 134/81
[2020-10-06] MEDS: CARVEDILOL 12.5 MG TABLET PO SCH ×2 (05:17→17:25)
[2020-10-06] MEDS: ALBUTEROL HFA 90 MCG/SPRAY INH PRN (05:25)
[2020-10-06 05:37] LABS: BASOPHILS % (AUTO) 1 % (0-1); EOSINOPHILS % (AUTO) 0 % (1-7); LYMPHOCYTES % (AUTO) 17 % (22-44); MEAN CORPUSCULAR HEMOGLOBIN 28.5 pg (27.5-34.5); MEAN CORPUSCULAR HGB CONC 32.8 g/dL (33.2-36.2); MEAN PLATELET VOLUME 7.4 fL (7.4-10.4); MONOCYTES % (AUTO) 9 % (2-9); NEUTROPHILS % (AUTO) 73 % (42-75); PLATELET COUNT 403 x10^3/uL (130-400); RED BLOOD COUNT 3.24 x10^6/uL (4.38-5.82); RED CELL DISTRIBUTION WIDTH 22.7 % (9.4-14.8)
[2020-10-06 05:44] LABS: INTERNATIONAL NORMALIZED RATIO 1.26 (0.93-1.1); PROTHROMBIN TIME 13.3 Seconds (9.6-11.5)
[2020-10-06 05:45] LABS: MD NO
[2020-10-06 05:52] LABS: ALBUMIN 2.3 g/dL (3.4-5.0); ANION GAP 4 mmol/L (5-15); CALCIUM 8.4 mg/dL (8.5-10.1); CHLORIDE 107 mmol/L (98-107)
[2020-10-06 06:01] LABS: ALANINE AMINOTRANSFERASE 25 U/L (12-78); ALKALINE PHOSPHATASE 84 U/L (45-117); BILIRUBIN,TOTAL 0.3 mg/dL (0.2-1.0); CREATININE 0.58 mg/dL (0.7-1.3); TOTAL PROTEIN 5.2 g/dL (6.4-8.2)
[2020-10-06 07:44] VITALS: BP 136/96
[2020-10-06] MEDS: LISINOPRIL 20 MG TABLET PO SCH (08:44)
[2020-10-06] MEDS: DILTIAZEM 120 MG CAP.ER.24H PO SCH (08:44)
[2020-10-06] MEDS: TIOTROPIUM BROMIDE 18 MCG/INH INH SCH (08:44)
[2020-10-06] MEDS: FLUTICASONE/VILANTEROL 200-25MCG/INH INH SCH (08:44)
[2020-10-06] MEDS: WARFARIN MODERAT DOSE PROTOCOL XX SCH (08:46)
[2020-10-06 13:55] VITALS: BP 129/83
[2020-10-06] MEDS: ENOXAPARIN 40 MG/0.4 ML SQ SCH (17:00)
[2020-10-06] MEDS ORDERED: WARFARIN 7.5 MG TABLET PO-COUM ONE (18:00)
[2020-10-06 19:45] VITALS: BP 133/77
[2020-10-06] MEDS: ACETAMINOPHEN 325 MG TABLET PO PRN (19:46)
[2020-10-06] MEDS: MIRTAZAPINE 15 MG TABLET PO SCH (19:47)
[2020-10-07 02:11] VITALS: BP 145/95
[2020-10-07 05:21] VITALS: BP 131/83
[2020-10-07] MEDS: CARVEDILOL 12.5 MG TABLET PO SCH (05:22)
[2020-10-07 08:17] VITALS: BP 124/87
[2020-10-07] MEDS: ACETAMINOPHEN 325 MG TABLET PO PRN (08:20)
[2020-10-07] MEDS: DILTIAZEM 120 MG CAP.ER.24H PO SCH (08:21)
[2020-10-07] MEDS: LISINOPRIL 20 MG TABLET PO SCH (08:21)
[2020-10-07 08:54] LABS: INTERNATIONAL NORMALIZED RATIO 1.35 (0.93-1.1); PROTHROMBIN TIME 14.3 Seconds (9.6-11.5)
[2020-10-07] MEDS ORDERED: WARF7.5T46 PO ×2 (11:52)
[2020-10-07] MEDS ORDERED: Diltiazem Cd PO (11:52)
[2020-10-07] MEDS ORDERED: PRED10TA PO (11:52)
[2020-10-07] MEDS: WARFARIN MODERAT DOSE PROTOCOL XX SCH (12:00)
[2020-10-07] MEDS ORDERED: APIX5TAB PO (12:05)
[2020-10-07] MEDS: ALBUTEROL HFA 90 MCG/SPRAY INH PRN (12:22)
[2020-10-07] MEDS ORDERED: APIXABAN 5 MG TABLET PO SCH (12:30)
== END 2020-10-07 14:57 | disposition home or self-care (01) | DRG 189 ==
LOC: ED 11:12 → EDIP 15:13 → 3N 18:34 → DCLOUNGE 10-07 14:49
PROVIDERS: ADMIT Family Medicine; ATTEND Internal Medicine
DX: J96.21 Acute and chronic respiratory failure with hypoxia (principal); D68.69 Other thrombophilia; J44.1 Chronic obstructive pulmonary disease with (acute) exacerbation; M48.54XA Collapsed vertebra, not elsewhere classified, thoracic region, initial encounter for fracture; D63.8 Anemia in other chronic diseases classified elsewhere; E11.9 Type 2 diabetes mellitus without complications; F10.10 Alcohol abuse, uncomplicated; I10 Essential (primary) hypertension; I48.0 Paroxysmal atrial fibrillation; T45.515A Adverse effect of anticoagulants, initial encounter; Z66 Do not resuscitate; Z79.01 Long term (current) use of anticoagulants; Z86.718 Personal history of other venous thrombosis and embolism; Y92.89 Other specified places as the place of occurrence of the external cause; Z91.013 Allergy to seafood; Z91.018 Allergy to other foods
CPT/HCPCS: 36415; 71045; 72072; 80053; 83735; 83880; 84100; 84145; 84484; 85025; 85610; 93005; 96374; 99285; G0378; J1650; J2920; J7512

== ENCOUNTER 2020-10-18 14:50 | Inpatient (IN) | payer MEDICAID ==
[~2020-10-18] VITALS: Ht 190.5 cm; Wt 81.9 kg
[~2020-10-18 14:50] MED LIST changes: +Diltiazem Cd PO; +WARF7.5T46 PO
[2020-10-18] MEDS ORDERED: SODIUM CHLORIDE FLUSH 10ML SYR IVF ONE (15:00)
[2020-10-18] MEDS ORDERED: ALBUTEROL SULFATE 2.5 MG/3 ML ONE (15:00)
[2020-10-18] MEDS ORDERED: methylPREDNISolone SOD SUCC 125 MG/2 ML IVPush ONE (15:00)
[2020-10-18] MEDS ORDERED: ALBUTEROL SULFATE 2.5 MG/3 ML NPPB ONE (15:00)
[2020-10-18 15:22] LABS: BASOPHILS % (AUTO) 0 % (0-1); EOSINOPHILS % (AUTO) 0 % (1-7); LYMPHOCYTES % (AUTO) 7 % (22-44); MEAN CORPUSCULAR HEMOGLOBIN 28.1 pg (27.5-34.5); MEAN PLATELET VOLUME 7.5 fL (7.4-10.4); MONOCYTES % (AUTO) 3 % (2-9); NEUTROPHILS % (AUTO) 90 % (42-75); PLATELET COUNT 281 x10^3/uL (130-400); RED BLOOD COUNT 3.64 x10^6/uL (4.38-5.82); RED CELL DISTRIBUTION WIDTH 22.7 % (9.4-14.8)
[2020-10-18 15:23] LABS: MD NO
[2020-10-18 15:32] LABS: ANION GAP 5 mmol/L (5-15); CALCIUM 8.5 mg/dL (8.5-10.1); CHLORIDE 101 mmol/L (98-107)
[2020-10-18 15:36] LABS: ALANINE AMINOTRANSFERASE 196 U/L (12-78); ALKALINE PHOSPHATASE 95 U/L (45-117); BILIRUBIN,TOTAL 0.2 mg/dL (0.2-1.0); CREATININE 0.65 mg/dL (0.7-1.3); TOTAL PROTEIN 5.9 g/dL (6.4-8.2)
[2020-10-18 15:38] LABS: INTERNATIONAL NORMALIZED RATIO 1.84 (0.93-1.1); PROTHROMBIN TIME 19.4 Seconds (9.6-11.5)
[2020-10-18] MEDS ORDERED: MORPHINE SULFATE 4 MG/ML, 1ML ONE ×2 (15:49→16:20)
[2020-10-18] MEDS ORDERED: methylPREDNISolone SOD SUCC 125 MG/2 ML ONE (15:49)
[2020-10-18] MEDS: MORPHINE SULFATE 4 MG/ML, 1ML IVPush PRN ×2 (15:55→16:21)
[2020-10-18] MEDS ORDERED: PLEASE ENTER HEIGHT AND WEIGHT MC SCH (16:00)
[2020-10-18] MEDS ORDERED: CEFTRIAXONE PMX 1GM/50ML 50 ML IVPB ONE (16:00)
[2020-10-18] MEDS ORDERED: CEFTRIAXONE PMX 1GM/50ML 50 ML ONE (16:03)
[2020-10-18 16:38] LABS: HCT (SEDRATE) 29.3 % (39.2-51.8)
[2020-10-18] MEDS ORDERED: SODIUM CHLORIDE 0.9%, 500ML IVBOLUS ONE (17:30)
[2020-10-18] MEDS ORDERED: WARF-36 PO (18:14)
--- NOTE | 2020-10-18 20:15 | NUR ---
PT TRANSFERRED TO HOSPITAL BED
[2020-10-18] MEDS ORDERED: MIRT-34 PO (20:50)
[2020-10-18] MEDS ORDERED: PRED20TA PO (20:50)
[2020-10-18] MEDS ORDERED: LISI-420 PO (20:50)
[2020-10-18] MEDS ORDERED: DILT-8 PO (20:50)
[2020-10-18] MEDS ORDERED: LABETALOL 5MG/ML, 20ML IVPush PRN (21:30)
[2020-10-18] MEDS ORDERED: ONDANSETRON ODT 4 MG PO PRN (21:30)
[2020-10-18] MEDS ORDERED: LORazepam 2 MG/ML, 1ML IV PRN ×5 (21:30)
[2020-10-18] MEDS ORDERED: ACETAMINOPHEN 325 MG TABLET PO PRN (21:30)
[2020-10-18] MEDS ORDERED: DOCUSATE 100 MG CAPSULE PO PRN (21:30)
[2020-10-18] MEDS ORDERED: MELATONIN 5 MG TABLET PO PRN (21:30)
[2020-10-18] MEDS ORDERED: GABAPENTIN 300 MG CAPSULE PO PRN (21:30)
[2020-10-18] MEDS ORDERED: THIAMINE 200 MG in DEXTROSE 5% 50 ML IVPB ONE (21:30)
[2020-10-18 21:50] VITALS: BP 138/90
[2020-10-18] MEDS: morphine SULFATE 10 MG/ML, 1ML IVPush PRN (22:20)
[2020-10-19 00:15] VITALS: BP 145/89
[2020-10-19 06:00] LABS: MEAN CORPUSCULAR HGB CONC 32.9 g/dL (33.2-36.2); MEAN PLATELET VOLUME 7.7 fL (7.4-10.4); PLATELET COUNT 228 x10^3/uL (130-400); RED BLOOD COUNT 3.02 x10^6/uL (4.38-5.82); RED CELL DISTRIBUTION WIDTH 22.3 % (9.4-14.8)
[2020-10-19 06:07] LABS: CALCIUM 8.4 mg/dL (8.5-10.1); CHLORIDE 105 mmol/L (98-107)
[2020-10-19 06:23] LABS: ANION GAP 2 mmol/L (5-15)
[2020-10-19] MEDS: morphine SULFATE 10 MG/ML, 1ML IVPush PRN ×5 (06:27→22:08)
[2020-10-19 06:48] LABS: MD YES
[2020-10-19 06:50] LABS: LYMPH#(MANUAL) 0.56 x10^3/uL (1-3.4); LYMPHS% (MANUAL) 10 % (22-44); MONOS#(MANUAL) 0.22 x10^3/uL (0.3-2.7); MONOS% (MANUAL) 4 % (2-9); SEG#(MANUAL) 4.82 x10^3/uL (1.8-6.8); SEGS% (MANUAL) 86 % (42-75)
[2020-10-19 06:51] LABS: ANISOCYTOSIS 1+; OVALOCYTES 1+; TEAR DROPS 1+
[2020-10-19 06:52] LABS: <PLATELET ESTIMATE> ADEQUATE; <PLT MORPHOLOGY> NORMAL PLT MORPH
[2020-10-19] MEDS: INSULIN LISPRO 100 UNITS/ML, PEN SQ-INSULIN SCH ×4 (07:00→21:00)
[2020-10-19] MEDS ORDERED: ALBUTEROL-IPRATROPIUM MDI INH INH PRN (09:00)
[2020-10-19] MEDS: CARVEDILOL 12.5 MG TABLET PO SCH ×2 (10:00→18:14)
[2020-10-19] MEDS: LISINOPRIL 20 MG TABLET PO SCH ×2 (10:00→21:18)
[2020-10-19] MEDS: TIOTROPIUM BROMIDE 18 MCG/INH INH SCH (10:03)
[2020-10-19] MEDS: FLUTICASONE/VILANTEROL 100-25MCG/INH INH SCH (10:03)
[2020-10-19 12:00] VITALS: BP 149/91
[2020-10-19] MEDS: CEFTRIAXONE PMX 1GM/50ML 50 ML IV SCH (16:26)
[2020-10-19 18:10] VITALS: BP 153/97
[2020-10-19 18:42] VITALS: BP 152/96
[2020-10-19] MEDS: APIXABAN 5 MG TABLET PO SCH (21:18)
[2020-10-20 01:45] VITALS: BP 157/92
[2020-10-20] MEDS: morphine SULFATE 10 MG/ML, 1ML IVPush PRN ×5 (02:55→20:18)
[2020-10-20 05:37] VITALS: BP 150/110
[2020-10-20] MEDS: CARVEDILOL 12.5 MG TABLET PO SCH ×2 (05:38→17:49)
[2020-10-20 06:23] VITALS: BP 164/99
[2020-10-20 06:55] VITALS: BP 150/93
[2020-10-20] MEDS: INSULIN LISPRO 100 UNITS/ML, PEN SQ-INSULIN SCH ×4 (07:00→20:12)
[2020-10-20 07:17] LABS: BASOPHILS % (AUTO) 1 % (0-1); EOSINOPHILS % (AUTO) 0 % (1-7); LYMPHOCYTES % (AUTO) 11 % (22-44); MEAN CORPUSCULAR HEMOGLOBIN 29.2 pg (27.5-34.5); MEAN CORPUSCULAR HGB CONC 33.1 g/dL (33.2-36.2); MEAN PLATELET VOLUME 7.9 fL (7.4-10.4); MONOCYTES % (AUTO) 11 % (2-9); NEUTROPHILS % (AUTO) 77 % (42-75); PLATELET COUNT 223 x10^3/uL (130-400); RED BLOOD COUNT 3.22 x10^6/uL (4.38-5.82); RED CELL DISTRIBUTION WIDTH 22.3 % (9.4-14.8)
[2020-10-20 07:25] LABS: ALBUMIN 2.7 g/dL (3.4-5.0); ANION GAP 4 mmol/L (5-15); CHLORIDE 102 mmol/L (98-107)
[2020-10-20 07:30] LABS: ALANINE AMINOTRANSFERASE 114 U/L (12-78); ALKALINE PHOSPHATASE 86 U/L (45-117); BILIRUBIN,TOTAL 0.3 mg/dL (0.2-1.0); CREATININE 0.74 mg/dL (0.7-1.3); TOTAL PROTEIN 5.5 g/dL (6.4-8.2)
[2020-10-20 07:42] LABS: MD MORPH REVIEW ONLY; OVALOCYTES 1+; POLYCHROMASIA 1+; TEAR DROPS 1+
[2020-10-20 07:43] LABS: <PLATELET ESTIMATE> ADEQUATE; <PLT MORPHOLOGY> NORMAL PLT MORPH
[2020-10-20] MEDS: APIXABAN 5 MG TABLET PO SCH ×2 (08:35→20:10)
[2020-10-20] MEDS: FLUTICASONE/VILANTEROL 100-25MCG/INH INH SCH (08:35)
[2020-10-20] MEDS: TIOTROPIUM BROMIDE 18 MCG/INH INH SCH (08:35)
[2020-10-20] MEDS: LISINOPRIL 20 MG TABLET PO SCH (08:35)
[2020-10-20 12:20] VITALS: BP 165/96
[2020-10-20] MEDS: CEFTRIAXONE PMX 1GM/50ML 50 ML IV SCH (15:52)
[2020-10-20 19:49] VITALS: BP 153/100
[2020-10-20] MEDS: LISINOPRIL 10 MG TABLET PO SCH (20:10)
[2020-10-20] MEDS ORDERED: ALBUTEROL-IPRATROPIUM MDI INH INH PRN (20:30)
[2020-10-21] MEDS: morphine SULFATE 10 MG/ML, 1ML IVPush PRN ×3 (00:08→08:26)
[2020-10-21 00:59] VITALS: BP 114/69
[2020-10-21 03:25] LABS: MICROSCOPIC NOT IND
[2020-10-21 05:09] VITALS: BP 168/100
[2020-10-21] MEDS: CARVEDILOL 12.5 MG TABLET PO SCH ×2 (05:11→17:16)
[2020-10-21 06:02] LABS: BASOPHILS % (AUTO) 0 % (0-1); EOSINOPHILS % (AUTO) 0 % (1-7); LYMPHOCYTES % (AUTO) 16 % (22-44); MEAN CORPUSCULAR HEMOGLOBIN 28.9 pg (27.5-34.5); MEAN CORPUSCULAR HGB CONC 32.3 g/dL (33.2-36.2); MONOCYTES % (AUTO) 14 % (2-9); NEUTROPHILS % (AUTO) 69 % (42-75); PLATELET COUNT 228 x10^3/uL (130-400); RED BLOOD COUNT 3.23 x10^6/uL (4.38-5.82); RED CELL DISTRIBUTION WIDTH 21.9 % (9.4-14.8)
[2020-10-21 06:10] LABS: ALBUMIN 2.8 g/dL (3.4-5.0); ANION GAP 3 mmol/L (5-15); CALCIUM 9.1 mg/dL (8.5-10.1); CHLORIDE 101 mmol/L (98-107); MD NO
[2020-10-21 06:13] LABS: ALANINE AMINOTRANSFERASE 118 U/L (12-78); ALKALINE PHOSPHATASE 93 U/L (45-117); BILIRUBIN,TOTAL 0.3 mg/dL (0.2-1.0); CREATININE 0.55 mg/dL (0.7-1.3); TOTAL PROTEIN 5.5 g/dL (6.4-8.2)
[2020-10-21] MEDS: INSULIN LISPRO 100 UNITS/ML, PEN SQ-INSULIN SCH ×4 (07:00→19:42)
[2020-10-21 08:06] VITALS: BP 135/74
[2020-10-21] MEDS: LISINOPRIL 10 MG TABLET PO SCH ×2 (08:26→19:38)
[2020-10-21] MEDS: APIXABAN 5 MG TABLET PO SCH ×2 (08:26→19:38)
[2020-10-21] MEDS: TIOTROPIUM BROMIDE 18 MCG/INH INH SCH (08:26)
[2020-10-21] MEDS: FLUTICASONE/VILANTEROL 100-25MCG/INH INH SCH (08:27)
[2020-10-21 12:13] VITALS: BP 146/90
[2020-10-21] MEDS: MORPHINE SULFATE 4 MG/ML, 1ML IVPush PRN ×3 (13:51→23:43)
[2020-10-21 17:16] VITALS: BP 151/88
[2020-10-21 19:30] VITALS: BP 148/92
[2020-10-22 00:05] VITALS: BP 144/87
[2020-10-22 05:00] VITALS: BP 156/96
[2020-10-22] MEDS: CARVEDILOL 12.5 MG TABLET PO SCH ×2 (05:00→17:53)
[2020-10-22] MEDS: MORPHINE SULFATE 4 MG/ML, 1ML IVPush PRN (05:04)
[2020-10-22] MEDS: INSULIN LISPRO 100 UNITS/ML, PEN SQ-INSULIN SCH ×2 (07:00→10:32)
[2020-10-22] MEDS: LISINOPRIL 10 MG TABLET PO SCH ×2 (07:41→19:30)
[2020-10-22] MEDS: APIXABAN 5 MG TABLET PO SCH ×2 (07:42→19:30)
[2020-10-22] MEDS: TIOTROPIUM BROMIDE 18 MCG/INH INH SCH (07:42)
[2020-10-22] MEDS: FLUTICASONE/VILANTEROL 100-25MCG/INH INH SCH (07:42)
[2020-10-22 08:00] VITALS: BP 134/93
[2020-10-22] MEDS ORDERED: morphine SULFATE 10 MG/ML, 1ML IVPush PRN (11:00)
[2020-10-22] MEDS: morphine SULFATE 10 MG/ML, 1ML IVPush PRN ×2 (11:58→22:29)
[2020-10-22 14:00] VITALS: BP 138/90
[2020-10-22 19:29] VITALS: BP 142/85
[2020-10-23 01:14] VITALS: BP 157/96
[2020-10-23 04:54] VITALS: BP 156/95
[2020-10-23] MEDS: CARVEDILOL 12.5 MG TABLET PO SCH ×2 (04:58→17:17)
[2020-10-23 06:09] LABS: BASOPHILS % (AUTO) 1 % (0-1); EOSINOPHILS % (AUTO) 1 % (1-7); LYMPHOCYTES % (AUTO) 11 % (22-44); MEAN CORPUSCULAR HEMOGLOBIN 28.6 pg (27.5-34.5); MEAN PLATELET VOLUME 8.7 fL (7.4-10.4); MONOCYTES % (AUTO) 9 % (2-9); NEUTROPHILS % (AUTO) 78 % (42-75); PLATELET COUNT 212 x10^3/uL (130-400); RED CELL DISTRIBUTION WIDTH 21.9 % (9.4-14.8)
[2020-10-23 06:16] LABS: ALANINE AMINOTRANSFERASE 112 U/L (12-78); ALBUMIN 2.8 g/dL (3.4-5.0); ANION GAP 4 mmol/L (5-15); CHLORIDE 103 mmol/L (98-107); CREATININE 0.53 mg/dL (0.7-1.3)
[2020-10-23 06:29] LABS: ALKALINE PHOSPHATASE 105 U/L (45-117); BILIRUBIN,TOTAL 0.2 mg/dL (0.2-1.0); TOTAL PROTEIN 5.4 g/dL (6.4-8.2)
[2020-10-23 06:31] LABS: MD SCAN
[2020-10-23 06:38] VITALS: BP 146/94
[2020-10-23] MEDS: APIXABAN 5 MG TABLET PO SCH ×2 (07:39→21:49)
[2020-10-23] MEDS: FLUTICASONE/VILANTEROL 100-25MCG/INH INH SCH (07:40)
[2020-10-23] MEDS: TIOTROPIUM BROMIDE 18 MCG/INH INH SCH (07:40)
[2020-10-23] MEDS: LISINOPRIL 10 MG TABLET PO SCH ×2 (07:40→21:50)
[2020-10-23] MEDS: morphine SULFATE 10 MG/ML, 1ML IVPush PRN ×3 (07:41→21:50)
[2020-10-23 12:15] VITALS: BP 147/93
[2020-10-23 17:18] VITALS: BP 135/87
[2020-10-23 18:37] VITALS: BP 132/84
[2020-10-24 00:23] VITALS: BP 123/78
[2020-10-24 05:03] VITALS: BP 148/91
[2020-10-24] MEDS: CARVEDILOL 12.5 MG TABLET PO SCH ×2 (05:04→17:42)
[2020-10-24] MEDS: morphine SULFATE 10 MG/ML, 1ML IVPush PRN ×3 (05:08→20:49)
[2020-10-24 06:39] VITALS: BP 113/73
[2020-10-24] MEDS: TIOTROPIUM BROMIDE 18 MCG/INH INH SCH (07:52)
[2020-10-24] MEDS: FLUTICASONE/VILANTEROL 100-25MCG/INH INH SCH (07:52)
[2020-10-24] MEDS: APIXABAN 5 MG TABLET PO SCH (07:53)
[2020-10-24] MEDS: LISINOPRIL 10 MG TABLET PO SCH ×2 (07:53→20:31)
[2020-10-24 12:18] VITALS: BP 127/87
[2020-10-24] MEDS: LIDODERM 5% PATCH TD SCH (17:45)
[2020-10-24 18:39] VITALS: BP 110/75
[2020-10-25 00:32] VITALS: BP 121/81
[2020-10-25] MEDS: CARVEDILOL 12.5 MG TABLET PO SCH ×2 (05:29→16:10)
[2020-10-25 06:05] LABS: INTERNATIONAL NORMALIZED RATIO 0.95 (0.93-1.1); PROTHROMBIN TIME 10.1 Seconds (9.6-11.5)
[2020-10-25 07:33] VITALS: BP 130/90
[2020-10-25] MEDS: morphine SULFATE 10 MG/ML, 1ML IVPush PRN (07:46)
[2020-10-25] MEDS: FLUTICASONE/VILANTEROL 100-25MCG/INH INH SCH (09:00)
[2020-10-25] MEDS: TIOTROPIUM BROMIDE 18 MCG/INH INH SCH (09:00)
[2020-10-25] MEDS: LISINOPRIL 10 MG TABLET PO SCH ×2 (09:00→19:55)
[2020-10-25] MEDS ORDERED: HYDROCORTISONE 100 MG INJ. ONE (10:37)
[2020-10-25] MEDS: CALCITONIN SALMON 200 UNITS/ML, 2ML SQ SCH (10:39)
[2020-10-25] MEDS ORDERED: MIDAZOLAM 1 MG/ML, 2ML ONE (10:42)
[2020-10-25] MEDS ORDERED: CHLORHEXIDINE 15 ML UDC ONE (10:52)
[2020-10-25] MEDS ORDERED: LACTATED RINGERS 1,000 ML IV SCH (11:00)
[2020-10-25] MEDS ORDERED: CHLORHEXIDINE 15 ML UDC MM ONE (11:00)
[2020-10-25] MEDS ORDERED: PROPOFOL 10 MG/ML, 20ML ONE (11:16)
[2020-10-25] MEDS ORDERED: ONDANSETRON 2MG/ML, 2ML ONE (11:16)
[2020-10-25] MEDS ORDERED: SUCCINYLCHOLINE 20 MG/ML, 10ML ONE (11:16)
[2020-10-25] MEDS ORDERED: CEFAZOLIN 1,000 MG ONE (11:16)
[2020-10-25] MEDS ORDERED: FENTANYL PF 250 MCG/5ML ONE (11:18)
[2020-10-25] MEDS ORDERED: BUPIVACAINE/PF-EPI 0.5% 1:200K INFIL ONE (11:46)
[2020-10-25] MEDS ORDERED: OMNIPAQUE 350 MG/ML, 100ML BOTTLE IV ONE (12:36)
[2020-10-25] MEDS ORDERED: OMNIPAQUE 180 MG/ML, 20ML VIAL ONE (13:19)
[2020-10-25] MEDS ORDERED: MEPERIDINE/PF 25MG/0.5ML IVPush PRN (13:30)
[2020-10-25] MEDS ORDERED: ACETAMINOPHEN 325 MG TABLET PO PRN (13:30)
[2020-10-25] MEDS ORDERED: EPHEDRINE 50 MG/ML, 1ML IVPush PRN (13:30)
[2020-10-25] MEDS ORDERED: DIAZEPAM 5 MG/ML, 2ML IVPush PRN (13:30)
[2020-10-25] MEDS ORDERED: HYDROmorphone 1 MG/ML, 1ML INJ IVPush PRN (13:30)
[2020-10-25] MEDS ORDERED: PROMETHAZINE 12.5 MG SUPP PR PRN (13:30)
[2020-10-25] MEDS ORDERED: ONDANSETRON 2MG/ML, 2ML IVPush PRN (13:30)
[2020-10-25] MEDS ORDERED: OXYcodone 5 MG/5 ML ORAL.SOL UDC PO PRN (13:30)
[2020-10-25] MEDS ORDERED: ALBUTEROL SULFATE 2.5 MG/3 ML NPPB PRN (13:30)
[2020-10-25] MEDS ORDERED: hydrALAzine 20 MG/ML, 1ML IV PRN (13:30)
[2020-10-25] MEDS ORDERED: PROMETHAZINE 25 MG/ML, 1ML IVPush PRN (13:30)
[2020-10-25] MEDS ORDERED: LABETALOL 5MG/ML, 20ML IV PRN (13:30)
[2020-10-25] MEDS ORDERED: DIPHENHYDRAMINE 50 MG/ML, 1ML IVPush PRN (13:30)
[2020-10-25] MEDS ORDERED: MIDAZOLAM 1 MG/ML, 2ML IV PRN (13:30)
[2020-10-25] MEDS ORDERED: FENTANYL PF 100 MCG/2ML ONE ×2 (13:41→14:04)
[2020-10-25] MEDS ORDERED: OXYcodone 5 MG/5 ML ORAL.SOL UDC ONE (13:42)
[2020-10-25] MEDS: FENTANYL PF 100 MCG/2ML IV PRN ×3 (13:52→14:06)
[2020-10-25 14:53] VITALS: BP 130/85
[2020-10-25] MEDS: CEFAZOLIN PMX 2GM/50ML 50 ML IVPB SCH (16:09)
[2020-10-25] MEDS: LIDODERM 5% PATCH TD SCH (16:10)
[2020-10-25] MEDS ORDERED: morphine SULFATE 10 MG/ML, 1ML IVPush PRN (18:00)
[2020-10-25 18:34] VITALS: BP 118/80
[2020-10-26] MEDS: CEFAZOLIN PMX 2GM/50ML 50 ML IVPB SCH ×4 (00:06→23:58)
[2020-10-26 00:14] VITALS: BP 116/76
[2020-10-26] MEDS: CARVEDILOL 12.5 MG TABLET PO SCH ×2 (05:18→17:46)
[2020-10-26 07:36] VITALS: BP 104/69
[2020-10-26] MEDS: TIOTROPIUM BROMIDE 18 MCG/INH INH SCH (07:38)
[2020-10-26] MEDS: FLUTICASONE/VILANTEROL 100-25MCG/INH INH SCH (07:38)
[2020-10-26] MEDS: LISINOPRIL 10 MG TABLET PO SCH ×2 (07:39→19:51)
[2020-10-26] MEDS: CYCLOBENZAPRINE 10 MG TABLET PO SCH ×3 (10:27→19:51)
[2020-10-26] MEDS: CALCITONIN SALMON 200 UNITS/ML, 2ML SQ SCH (10:28)
[2020-10-26 13:55] VITALS: BP 101/68
[2020-10-26] MEDS: LIDODERM 5% PATCH TD SCH (14:49)
[2020-10-26 20:08] VITALS: BP 99/65
[2020-10-27 01:39] VITALS: BP 103/70
[2020-10-27 02:11] VITALS: BP 114/74
[2020-10-27] MEDS: CARVEDILOL 12.5 MG TABLET PO SCH (05:38)
[2020-10-27 07:32] VITALS: BP 101/64
[2020-10-27] MEDS: CEFAZOLIN PMX 2GM/50ML 50 ML IVPB SCH (08:22)
[2020-10-27] MEDS: FLUTICASONE/VILANTEROL 100-25MCG/INH INH SCH (09:54)
[2020-10-27] MEDS: TIOTROPIUM BROMIDE 18 MCG/INH INH SCH (09:55)
[2020-10-27] MEDS: LISINOPRIL 10 MG TABLET PO SCH (09:56)
[2020-10-27] MEDS: CYCLOBENZAPRINE 10 MG TABLET PO SCH (09:56)
[2020-10-27] MEDS: CALCITONIN SALMON 200 UNITS/ML, 2ML SQ SCH (10:14)
[2020-10-27] MEDS ORDERED: HYDR-3241 PO (11:26)
== END 2020-10-27 13:30 | disposition home or self-care (01) | DRG 478 ==
LOC: ED 15:05 → EDIP 21:42 → 3N 21:46 → DCLOUNGE 10-27 13:12
PROVIDERS: ADMIT Hospitalist; ATTEND Internal Medicine
PROC: 0PS43ZZ Reposition Thoracic Vertebra, Percutaneous Approach (ICD-10-PCS; principal; 2020-10-24)
PROC: 0PB43ZX Excision of Thoracic Vertebra, Percutaneous Approach, Diagnostic (ICD-10-PCS; 2020-10-24)
PROC: 0PU43JZ Supplement Thoracic Vertebra with Synthetic Substitute, Percutaneous Approach (ICD-10-PCS; 2020-10-24)
DX: M80.08XA Age-related osteoporosis with current pathological fracture, vertebra(e), initial encounter for fracture (principal); E87.2 Acidosis; J96.10 Chronic respiratory failure, unspecified whether with hypoxia or hypercapnia; D68.59 Other primary thrombophilia; E11.9 Type 2 diabetes mellitus without complications; D72.829 Elevated white blood cell count, unspecified; F17.210 Nicotine dependence, cigarettes, uncomplicated; I11.9 Hypertensive heart disease without heart failure; I48.91 Unspecified atrial fibrillation; J43.9 Emphysema, unspecified; Z20.828 Contact with and (suspected) exposure to other viral communicable diseases; M21.372 Foot drop, left foot; V78.4XXA Person boarding or alighting from bus injured in noncollision transport accident, initial encounter; Z79.01 Long term (current) use of anticoagulants; Z86.718 Personal history of other venous thrombosis and embolism; Y93.89 Activity, other specified; Y92.488 Other paved roadways as the place of occurrence of the external cause; Y99.8 Other external cause status; Z90.49 Acquired absence of other specified parts of digestive tract
CPT/HCPCS: 36415; 72072; 84145; J7613; 70450; 71045; 72125; 72128; 72131; 72148; 72157; 80048; 80053; 81003; 82962; 83036; 83605; 85025; 85610; 85651; 86140; 86850; 86900; 87040; 87635; 88307; 88311; 93005; C1713; G0378; J0690; J0696; J2250; J2405; J2704; J3010; J3411; Q9965; Q9967; J0330; J0630; J1720; J2270; J2930; J7040; J7512

== ENCOUNTER 2020-10-27 20:23 | Inpatient (IN) | payer MEDICAID ==
[~2020-10-27] VITALS: Ht 185.4 cm; Wt 85.6 kg
[~2020-10-27 20:23] MED LIST changes: +DILT-8 PO; +HYDR-3241 PO; +LISI-420 PO; +MIRT-34 PO; +WARF-36 PO
--- NOTE | 2020-10-27 20:40 | NUR ---
Pt will also need home o2 when dc.
[2020-10-27] MEDS ORDERED: MORPHINE SULFATE 4 MG/ML, 1ML ONE (20:46)
[2020-10-27] MEDS ORDERED: MORPHINE SULFATE 4 MG/ML, 1ML IVPush ONE (21:00)
--- NOTE | 2020-10-27 21:21 | NUR ---
TRIED CALLING PATIENT'S FRIEND EKTA TO ASK IF OXYGEN CAN BE BROUGHT TO PATIENT, NO ANSWER. Addendum: 10/27/20 at 2 by JEMALRAAldo LEFT MESSAGE ON [employer].
--- NOTE | 2020-10-27 21:38 | NUR ---
NOTIFIED ER PROVIDER THAT THIS RN IS UNABLE TO GET A HOLD OF LISTED CONTACTS FOR OXYGEN, [facility] THAT IS LISTED UNDER CASE MANAGEMENT IS CLOSED RIGHT NOW. ER PROVIDER MADE AWARE THAT PATIENT IS C/O BACK PAIN AFTER MORPHINE DOSE.
--- NOTE | 2020-10-27 22:45 | NUR ---
SM AT BEDSIDE FOR ADMISSION EVALUATION.
--- NOTE | 2020-10-27 23:03 | NUR ---
PATIENT LAYING IN GURNEY WATCHING TV, NADN, VSS, SIDE RAILS UP X2, URINAL AT BEDSIDE, CALL LIGHT WITHIN REACH.
--- NOTE | 2020-10-27 23:38 | NUR ---
WARM BLANKET PROVIDED TO PATIENT. HOSPITAL BED REQUESTED.
[2020-10-27] MEDS ORDERED: LISINOPRIL 20 MG TABLET ONE (23:43)
[2020-10-27] MEDS ORDERED: APIXABAN 5 MG TABLET ONE (23:44)
[2020-10-27] MEDS ORDERED: MIRTAZAPINE 15 MG TABLET ONE (23:44)
[2020-10-27] MEDS: MIRTAZAPINE 15 MG TABLET PO SCH (23:49)
[2020-10-27] MEDS: LISINOPRIL 20 MG TABLET PO SCH (23:50)
--- NOTE | 2020-10-27 23:50 | NUR ---
PATIENT MEDICATED PER eMAR, GABAPENTIN REQUESTED FROM PHARMACY.
--- NOTE | 2020-10-27 23:57 | NUR ---
BEDSIDE REPORT RECEIVED FROM ROSI LUNA
[2020-10-28] MEDS ORDERED: TEMPLATE NON-FORMULARY MED. (Omeprazole Magnesium** (Prilosec Otc**) 20 MG) PO SCH
[2020-10-28] MEDS ORDERED: DOCUSATE 100 MG CAPSULE PO PRN
--- NOTE | 2020-10-28 00:15 | NUR ---
PT SITTING UPRIGHT ON GURNEY, NAD, VSS. PT DENIES ANY NEEDS AT THIS TIME. CALL LIGHT AND PERSONAL BELONGINGS WITHIN REACH.
[2020-10-28] MEDS ORDERED: OMEPRAZOLE 20 MG CAPSULE.DR ONE (00:29)
[2020-10-28] MEDS: GABAPENTIN 100 MG CAPSULE PO SCH ×4 (00:31→20:22)
[2020-10-28] MEDS: OMEPRAZOLE 20 MG CAPSULE.DR PO SCH ×3 (00:31→20:22)
--- NOTE | 2020-10-28 00:57 | NUR ---
Pt to be admitted to medical, room 446. Report called to Emiliana.
[2020-10-28 01:44] VITALS: BP 113/69
[2020-10-28] MEDS: CARVEDILOL 12.5 MG TABLET PO SCH ×2 (05:27→17:20)
[2020-10-28] MEDS: LISINOPRIL 20 MG TABLET PO SCH ×2 (08:09→20:22)
[2020-10-28] MEDS: FERROUS SULFATE 325 MG TABLET PO SCH ×2 (08:09→16:25)
[2020-10-28] MEDS: APIXABAN 5 MG TABLET PO SCH ×2 (08:10→20:22)
[2020-10-28] MEDS: DILTIAZEM 120 MG CAP.ER.24H PO SCH (08:56)
[2020-10-28 09:33] VITALS: BP 89/54
[2020-10-28 10:07] VITALS: BP 93/58
[2020-10-28] MEDS: FLUTICASONE/VILANTEROL 100-25MCG/INH INH SCH (10:39)
[2020-10-28] MEDS: TIOTROPIUM BROMIDE 18 MCG/INH INH SCH (10:59)
[2020-10-28] MEDS ORDERED: LACTATED RINGERS 500 ML IVBOLUS ONE (12:00)
[2020-10-28 12:39] VITALS: BP 118/74
[2020-10-28 17:18] VITALS: BP 125/78
[2020-10-28 19:14] VITALS: BP_SYST 91; BP_DIAS 30; BP_DIAS 64
[2020-10-28] MEDS: ALBUTEROL HFA 90 MCG/SPRAY INH PRN (20:21)
[2020-10-28] MEDS: MIRTAZAPINE 15 MG TABLET PO SCH (22:31)
[2020-10-29 01:29] VITALS: BP 101/66
[2020-10-29 06:02] VITALS: BP 134/87
[2020-10-29] MEDS: CARVEDILOL 12.5 MG TABLET PO SCH ×2 (06:16→18:11)
[2020-10-29] MEDS: ALBUTEROL HFA 90 MCG/SPRAY INH PRN ×2 (06:20→14:12)
[2020-10-29 06:48] VITALS: BP 126/84
[2020-10-29] MEDS: LISINOPRIL 20 MG TABLET PO SCH ×2 (08:22→20:29)
[2020-10-29] MEDS: GABAPENTIN 100 MG CAPSULE PO SCH ×3 (08:22→20:30)
[2020-10-29] MEDS: APIXABAN 5 MG TABLET PO SCH ×2 (08:22→20:30)
[2020-10-29] MEDS: FERROUS SULFATE 325 MG TABLET PO SCH ×2 (08:22→18:11)
[2020-10-29] MEDS: DILTIAZEM 120 MG CAP.ER.24H PO SCH (08:23)
[2020-10-29] MEDS: TIOTROPIUM BROMIDE 18 MCG/INH INH SCH (08:23)
[2020-10-29] MEDS: FLUTICASONE/VILANTEROL 100-25MCG/INH INH SCH (08:23)
[2020-10-29] MEDS: OMEPRAZOLE 20 MG CAPSULE.DR PO SCH ×2 (08:23→20:29)
[2020-10-29] MEDS ORDERED: morphine SULFATE ORAL.CONC 20 MG/ML PO ONE (10:30)
[2020-10-29] MEDS ORDERED: OXYcodone IR 5MG TABLET PO ONE (12:00)
[2020-10-29 12:55] VITALS: BP 123/82
[2020-10-29 18:09] VITALS: BP 122/77
[2020-10-29 19:57] VITALS: BP 104/66
[2020-10-29] MEDS: MIRTAZAPINE 15 MG TABLET PO SCH (20:29)
[2020-10-30 01:07] VITALS: BP 107/72
[2020-10-30 05:40] VITALS: BP 100/65
[2020-10-30] MEDS: CARVEDILOL 12.5 MG TABLET PO SCH ×2 (05:45→17:56)
[2020-10-30 07:49] VITALS: BP 112/76
[2020-10-30] MEDS: FLUTICASONE/VILANTEROL 100-25MCG/INH INH SCH (08:29)
[2020-10-30] MEDS: FERROUS SULFATE 325 MG TABLET PO SCH ×2 (08:29→16:49)
[2020-10-30] MEDS: TIOTROPIUM BROMIDE 18 MCG/INH INH SCH (08:29)
[2020-10-30] MEDS: ALBUTEROL HFA 90 MCG/SPRAY INH PRN ×2 (08:29→20:51)
[2020-10-30] MEDS: LISINOPRIL 20 MG TABLET PO SCH ×2 (08:29→19:59)
[2020-10-30] MEDS: APIXABAN 5 MG TABLET PO SCH ×2 (08:30→20:00)
[2020-10-30] MEDS: OMEPRAZOLE 20 MG CAPSULE.DR PO SCH ×2 (08:30→19:59)
[2020-10-30] MEDS: GABAPENTIN 100 MG CAPSULE PO SCH ×3 (08:30→19:59)
[2020-10-30] MEDS: DILTIAZEM 120 MG CAP.ER.24H PO SCH (08:34)
[2020-10-30 13:16] VITALS: BP 101/66
[2020-10-30] MEDS ORDERED: HYDROCORTISONE 250 MG/2 ML IVPush ONE (13:30)
[2020-10-30 14:50] LABS: BASOPHILS % (AUTO) 1 % (0-1); EOSINOPHILS % (AUTO) 5 % (1-7); LYMPHOCYTES % (AUTO) 17 % (22-44); MEAN CORPUSCULAR HEMOGLOBIN 28.6 pg (27.5-34.5); MEAN CORPUSCULAR HGB CONC 32.4 g/dL (33.2-36.2); MEAN PLATELET VOLUME 7.9 fL (7.4-10.4); MONOCYTES % (AUTO) 13 % (2-9); NEUTROPHILS % (AUTO) 64 % (42-75); PLATELET COUNT 233 x10^3/uL (130-400); RED CELL DISTRIBUTION WIDTH 20.6 % (9.4-14.8)
[2020-10-30 14:54] LABS: MD MORPH REVIEW ONLY
[2020-10-30 14:55] LABS: ANION GAP 5 mmol/L (5-15); CALCIUM 8.4 mg/dL (8.5-10.1); CHLORIDE 101 mmol/L (98-107); CREATININE 0.71 mg/dL (0.7-1.3)
[2020-10-30 16:11] LABS: OVALOCYTES 1+; POLYCHROMASIA 1+
[2020-10-30 16:12] LABS: <PLATELET ESTIMATE> ADEQUATE; <PLT MORPHOLOGY> NORMAL PLT MORPH; TEAR DROPS 1+
[2020-10-30 19:49] VITALS: BP 113/76
[2020-10-30] MEDS: MIRTAZAPINE 15 MG TABLET PO SCH (19:59)
[2020-10-30] MEDS: MELATONIN 5 MG TABLET PO PRN (21:58)
[2020-10-31] MEDS: ALBUTEROL HFA 90 MCG/SPRAY INH PRN ×4 (02:43→19:42)
[2020-10-31 02:57] VITALS: BP 106/75
[2020-10-31] MEDS: CARVEDILOL 12.5 MG TABLET PO SCH ×2 (05:47→17:57)
[2020-10-31 08:14] VITALS: BP 90/59
[2020-10-31] MEDS ORDERED: MORPHINE SULFATE 4 MG/ML, 1ML IVPush PRN (08:30)
[2020-10-31] MEDS: OMEPRAZOLE 20 MG CAPSULE.DR PO SCH ×2 (09:01→19:42)
[2020-10-31] MEDS: GABAPENTIN 100 MG CAPSULE PO SCH ×3 (09:01→19:42)
[2020-10-31] MEDS: FERROUS SULFATE 325 MG TABLET PO SCH ×2 (09:01→15:31)
[2020-10-31] MEDS: APIXABAN 5 MG TABLET PO SCH ×2 (09:01→19:42)
[2020-10-31] MEDS: DILTIAZEM 120 MG CAP.ER.24H PO SCH (09:02)
[2020-10-31] MEDS: LISINOPRIL 20 MG TABLET PO SCH ×2 (09:02→19:42)
[2020-10-31] MEDS: FLUTICASONE/VILANTEROL 100-25MCG/INH INH SCH (09:03)
[2020-10-31] MEDS: TIOTROPIUM BROMIDE 18 MCG/INH INH SCH ×2 (09:03→09:05)
[2020-10-31 14:05] VITALS: BP 87/46
[2020-10-31 17:54] VITALS: BP 110/65
[2020-10-31 19:13] VITALS: BP 114/80
[2020-10-31] MEDS: MIRTAZAPINE 15 MG TABLET PO SCH (19:41)
[2020-11-01 00:51] VITALS: BP 88/57
[2020-11-01] MEDS: MELATONIN 5 MG TABLET PO PRN ×2 (00:51→21:38)
[2020-11-01] MEDS: CARVEDILOL 12.5 MG TABLET PO SCH ×2 (05:02→17:31)
[2020-11-01 07:15] VITALS: BP 101/74
[2020-11-01] MEDS: OMEPRAZOLE 20 MG CAPSULE.DR PO SCH ×2 (07:31→21:39)
[2020-11-01] MEDS: APIXABAN 5 MG TABLET PO SCH ×2 (07:31→21:38)
[2020-11-01] MEDS: FERROUS SULFATE 325 MG TABLET PO SCH ×2 (07:31→17:31)
[2020-11-01] MEDS: GABAPENTIN 100 MG CAPSULE PO SCH ×3 (07:31→21:38)
[2020-11-01] MEDS: TIOTROPIUM BROMIDE 18 MCG/INH INH SCH (07:32)
[2020-11-01] MEDS: FLUTICASONE/VILANTEROL 100-25MCG/INH INH SCH (07:32)
[2020-11-01] MEDS: ALBUTEROL HFA 90 MCG/SPRAY INH PRN ×2 (07:32→21:40)
[2020-11-01] MEDS: LISINOPRIL 20 MG TABLET PO SCH (07:34)
[2020-11-01] MEDS: DILTIAZEM 120 MG CAP.ER.24H PO SCH (07:34)
[2020-11-01] MEDS: CYCLOBENZAPRINE 10 MG TABLET PO SCH ×3 (09:24→21:38)
[2020-11-01 15:59] VITALS: BP 106/77
[2020-11-01 17:30] VITALS: BP 127/71
[2020-11-01 18:35] VITALS: BP 105/68
[2020-11-01] MEDS: LISINOPRIL 10 MG TABLET PO SCH (21:38)
[2020-11-01] MEDS: MIRTAZAPINE 15 MG TABLET PO SCH (21:39)
[2020-11-02 02:01] VITALS: BP 116/78
[2020-11-02] MEDS: CARVEDILOL 12.5 MG TABLET PO SCH ×2 (06:00→17:01)
[2020-11-02 06:48] VITALS: BP 110/72
[2020-11-02] MEDS: OMEPRAZOLE 20 MG CAPSULE.DR PO SCH ×2 (08:06→20:04)
[2020-11-02] MEDS: LISINOPRIL 10 MG TABLET PO SCH ×2 (08:06→20:04)
[2020-11-02] MEDS: GABAPENTIN 100 MG CAPSULE PO SCH ×3 (08:06→20:05)
[2020-11-02] MEDS: FERROUS SULFATE 325 MG TABLET PO SCH ×2 (08:06→17:01)
[2020-11-02] MEDS: CYCLOBENZAPRINE 10 MG TABLET PO SCH ×3 (08:06→20:04)
[2020-11-02] MEDS: APIXABAN 5 MG TABLET PO SCH ×2 (08:07→20:05)
[2020-11-02] MEDS: FLUTICASONE/VILANTEROL 100-25MCG/INH INH SCH (08:07)
[2020-11-02] MEDS: ALBUTEROL HFA 90 MCG/SPRAY INH PRN (08:07)
[2020-11-02] MEDS: DILTIAZEM 120 MG CAP.ER.24H PO SCH (08:10)
[2020-11-02] MEDS: TIOTROPIUM BROMIDE 18 MCG/INH INH SCH (08:10)
[2020-11-02 12:44] VITALS: BP 113/73
[2020-11-02 17:01] VITALS: BP 111/72
[2020-11-02 18:25] VITALS: BP 98/60
[2020-11-02] MEDS: MIRTAZAPINE 15 MG TABLET PO SCH (20:05)
[2020-11-02] MEDS: MELATONIN 5 MG TABLET PO PRN (23:06)
[2020-11-03 00:36] VITALS: BP 95/69
[2020-11-03] MEDS: CARVEDILOL 12.5 MG TABLET PO SCH ×2 (05:15→17:30)
[2020-11-03 05:35] LABS: CREATININE 0.59 mg/dL (0.7-1.3)
[2020-11-03 07:07] VITALS: BP 108/72
[2020-11-03] MEDS: ALBUTEROL HFA 90 MCG/SPRAY INH PRN ×2 (08:08→19:50)
[2020-11-03] MEDS: GABAPENTIN 100 MG CAPSULE PO SCH ×3 (08:44→20:54)
[2020-11-03] MEDS: CYCLOBENZAPRINE 10 MG TABLET PO SCH ×3 (08:44→20:54)
[2020-11-03] MEDS: FERROUS SULFATE 325 MG TABLET PO SCH ×2 (08:45→17:29)
[2020-11-03] MEDS: APIXABAN 5 MG TABLET PO SCH ×2 (08:45→19:48)
[2020-11-03] MEDS: LISINOPRIL 10 MG TABLET PO SCH ×2 (08:45→19:48)
[2020-11-03] MEDS: OMEPRAZOLE 20 MG CAPSULE.DR PO SCH ×2 (08:45→19:48)
[2020-11-03] MEDS: TIOTROPIUM BROMIDE 18 MCG/INH INH SCH (08:47)
[2020-11-03] MEDS: DILTIAZEM 120 MG CAP.ER.24H PO SCH (09:00)
[2020-11-03] MEDS: FLUTICASONE/VILANTEROL 200-25MCG/INH INH SCH ×2 (09:00→10:36)
[2020-11-03 12:00] VITALS: BP 94/68
[2020-11-03 17:25] VITALS: BP 100/66
[2020-11-03] MEDS ORDERED: LISI-167 PO (17:42)
[2020-11-03 19:12] VITALS: BP 103/68
[2020-11-03] MEDS: MIRTAZAPINE 15 MG TABLET PO SCH (19:48)
[2020-11-04 00:15] VITALS: BP 110/73
[2020-11-04] MEDS: CARVEDILOL 12.5 MG TABLET PO SCH (06:21)
[2020-11-04] MEDS: ALBUTEROL HFA 90 MCG/SPRAY INH PRN (06:27)
[2020-11-04 07:49] VITALS: BP 91/52
[2020-11-04] MEDS: APIXABAN 5 MG TABLET PO SCH (07:57)
[2020-11-04] MEDS: FERROUS SULFATE 325 MG TABLET PO SCH (07:57)
[2020-11-04] MEDS: OMEPRAZOLE 20 MG CAPSULE.DR PO SCH (07:57)
[2020-11-04] MEDS: CYCLOBENZAPRINE 10 MG TABLET PO SCH (07:57)
[2020-11-04] MEDS: GABAPENTIN 100 MG CAPSULE PO SCH (07:57)
[2020-11-04] MEDS: FLUTICASONE/VILANTEROL 200-25MCG/INH INH SCH (07:58)
[2020-11-04] MEDS: LISINOPRIL 10 MG TABLET PO SCH (08:00)
[2020-11-04] MEDS: TIOTROPIUM BROMIDE 18 MCG/INH INH SCH (08:00)
[2020-11-04] MEDS: DILTIAZEM 120 MG CAP.ER.24H PO SCH (08:00)
[2020-11-04 14:22] VITALS: BP 121/83
== END 2020-11-04 14:50 | disposition home or self-care (01) | DRG 189 ==
LOC: ED 21:35 → INTOOBSV 21:42 → EDIP 21:42 → ED 21:50 → 4NE 10-28 01:29 → OBSVTOIN 10-28 12:05 → DCLOUNGE 11-04 14:45
PROVIDERS: ADMIT Family Medicine; ATTEND Hospitalist
DX: J96.20 Acute and chronic respiratory failure, unspecified whether with hypoxia or hypercapnia (principal); M48.54XA Collapsed vertebra, not elsewhere classified, thoracic region, initial encounter for fracture; D68.69 Other thrombophilia; E87.2 Acidosis; J44.1 Chronic obstructive pulmonary disease with (acute) exacerbation; Z51.5 Encounter for palliative care; Z86.16 Personal history of COVID-19; K70.9 Alcoholic liver disease, unspecified; Z66 Do not resuscitate; L30.9 Dermatitis, unspecified; M21.372 Foot drop, left foot; J45.909 Unspecified asthma, uncomplicated; F17.200 Nicotine dependence, unspecified, uncomplicated; I10 Essential (primary) hypertension; I48.91 Unspecified atrial fibrillation; E11.9 Type 2 diabetes mellitus without complications; T45.515A Adverse effect of anticoagulants, initial encounter; D72.829 Elevated white blood cell count, unspecified; Z63.8 Other specified problems related to primary support group; Z87.01 Personal history of pneumonia (recurrent); Z91.013 Allergy to seafood; Z79.899 Other long term (current) drug therapy; Z79.891 Long term (current) use of opiate analgesic; Z79.01 Long term (current) use of anticoagulants; Z90.49 Acquired absence of other specified parts of digestive tract; Z79.84 Long term (current) use of oral hypoglycemic drugs; Z91.018 Allergy to other foods
CPT/HCPCS: 36415; 71045; 72072; 72110; 80048; 82565; 85025; 93005; 96374; 99285; G0378; J1720; J7120; J2270

== ENCOUNTER 2020-11-04 18:06 | Emergency (ER) | payer MEDICAID ==
[~2020-11-04] VITALS: Ht 190.5 cm; Wt 79.0 kg
[2020-11-04] MEDS ORDERED: ALBUTEROL/IPRATROPIUM 2.5MG/0.5MG, 3 ML ONE (18:27)
[2020-11-04] MEDS ORDERED: methylPREDNISolone SOD SUCC 125 MG/2 ML IVPush ONE (18:30)
[2020-11-04] MEDS ORDERED: SODIUM CHLORIDE FLUSH 10ML SYR IVF ONE (18:30)
--- NOTE | 2020-11-04 18:30 | NUR ---
PT BIBA. PER EMS PT STARTED HAVING SOB AROUND 1400, WORSENING IN LAST HOUR. PER EMS PT 79% RA. PT CURRENTLY ON 5L NC SATING AT 90%. PT WEARS 2L NC AT BASELINE. PT ALSO REPORTS HE HAD BACK SX 5 DAYS AGO AND WAS DC'D TODAY AROUND 1400. PT RESTING IN [facility], MONITORING IN PLACE, EKG DONE. WILL CONTINUE TO MONITOR.
[2020-11-04] MEDS ORDERED: methylPREDNISolone SOD SUCC 125 MG/2 ML ONE (18:39)
[2020-11-04] MEDS ORDERED: ALBUTEROL/IPRATROPIUM 2.5MG/0.5MG, 3 ML NPPB ONE (19:00)
[2020-11-04 19:05] LABS: BASOPHILS % (AUTO) 0 % (0-1); EOSINOPHILS % (AUTO) 4 % (1-7); LYMPHOCYTES % (AUTO) 19 % (22-44); MEAN CORPUSCULAR HEMOGLOBIN 28.5 pg (27.5-34.5); MEAN CORPUSCULAR HGB CONC 32.3 g/dL (33.2-36.2); MEAN PLATELET VOLUME 7.3 fL (7.4-10.4); MONOCYTES % (AUTO) 15 % (2-9); NEUTROPHILS % (AUTO) 62 % (42-75); PLATELET COUNT 384 x10^3/uL (130-400); RED BLOOD COUNT 3.12 x10^6/uL (4.38-5.82); RED CELL DISTRIBUTION WIDTH 19.5 % (9.4-14.8)
[2020-11-04 19:10] LABS: MD NO
[2020-11-04 19:16] LABS: ALBUMIN 2.8 g/dL (3.4-5.0); ANION GAP 1 mmol/L (5-15); CALCIUM 9.4 mg/dL (8.5-10.1); CHLORIDE 99 mmol/L (98-107); CREATININE 0.59 mg/dL (0.7-1.3)
[2020-11-04 19:19] LABS: TROPONIN I < 0.015 ng/mL (0.000-0.045)
--- NOTE | 2020-11-04 21:56 | NUR ---
PT RESTING IN [facility] AT THIS TIME, UPDATED ON POC TO HAVE HOME O2 DELIVERED TO THE ED AND THEN HAVE HIM DISCHARGED HOME VIA [facility]. HOME 02 WILL NOT BE DELIVERED UNTIL 0100, PT, , AND TWISTHAND AWARE.
--- NOTE | 2020-11-05 01:28 | NUR ---
PREFERRED OXYGEN CALLED AT THIS TIME, SAMY STATES HE IS COMING WITH HOME O2 FOR PT. WILL BE HERE WITHIN 30 MINUTES.
[2020-11-05 01:37] VITALS: BP 148/92
== END 2020-11-05 02:02 | disposition home or self-care (01) ==
LOC: ED 19:58
DX: J44.1 Chronic obstructive pulmonary disease with (acute) exacerbation (principal); R06.00 Dyspnea, unspecified; I11.0 Hypertensive heart disease with heart failure; I50.9 Heart failure, unspecified; R00.0 Tachycardia, unspecified; R06.02 Shortness of breath; E11.9 Type 2 diabetes mellitus without complications; J44.9 Chronic obstructive pulmonary disease, unspecified; I48.91 Unspecified atrial fibrillation; Z90.89 Acquired absence of other organs
CPT/HCPCS: 36415; 71045; 80048; 82040; 84484; 85025; 93005; 94640; 96374; 99285; J2930

== ENCOUNTER 2020-11-07 18:43 | Emergency (ER) | payer MEDICAID ==
[~2020-11-07] VITALS: Ht 175.3 cm; Wt 77.3 kg
--- NOTE | 2020-11-07 19:15 | NUR ---
OLD IV FROM PREVIOUS VISIT IN PT'S KELSI. PT STATED HE NOTICED IT A FEW DAYS AGO IN THE SHOWER BUT DIDN'T SEEK ANY ADVICE WHAT TO DO. PHYSICIAN NOTIFIED. IV REMOVED, TIP INTACT. SIGHT IS RED AND COOL TO THE TOUCH. SMALL ABRASION UNDER ADHESIVE. SITE CLEANED WITH STERILE WATER AND TEGADERM PLACED. PT TOLERATED WELL.
[2020-11-07] MEDS ORDERED: ALBUTEROL/IPRATROPIUM 2.5MG/0.5MG, 3 ML NPPB ONE (19:30)
[2020-11-07] MEDS ORDERED: ALBUTEROL/IPRATROPIUM 2.5MG/0.5MG, 3 ML ONE (19:34)
[2020-11-07 19:47] LABS: MEAN CORPUSCULAR HEMOGLOBIN 28.8 pg (27.5-34.5); MEAN CORPUSCULAR HGB CONC 32.5 g/dL (33.2-36.2); MEAN PLATELET VOLUME 7.3 fL (7.4-10.4); PLATELET COUNT 427 x10^3/uL (130-400); RED BLOOD COUNT 3.41 x10^6/uL (4.38-5.82); RED CELL DISTRIBUTION WIDTH 19.5 % (9.4-14.8)
[2020-11-07 19:59] LABS: ALBUMIN 3.5 g/dL (3.4-5.0); ANION GAP 13 mmol/L (5-15); CALCIUM 9.4 mg/dL (8.5-10.1); CHLORIDE 102 mmol/L (98-107); CREATININE 0.64 mg/dL (0.7-1.3)
[2020-11-07 20:03] LABS: TROPONIN I < 0.015 ng/mL (0.000-0.045)
[2020-11-07 20:04] LABS: MD YES
[2020-11-07 20:06] LABS: ANISOCYTOSIS 1+; LYMPH#(MANUAL) 1.58 x10^3/uL (1-3.4); LYMPHS% (MANUAL) 17 % (22-44); MONOS#(MANUAL) 0.84 x10^3/uL (0.3-2.7); MONOS% (MANUAL) 9 % (2-9); SEG#(MANUAL) 6.88 x10^3/uL (1.8-6.8); SEGS% (MANUAL) 74 % (42-75)
[2020-11-07 20:07] LABS: OVALOCYTES 1+; POLYCHROMASIA 1+; TEAR DROPS 1+
[2020-11-07 20:08] LABS: <PLATELET ESTIMATE> INCREASED; <PLT MORPHOLOGY> NORMAL PLT MORPH
--- NOTE | 2020-11-07 20:50 | NUR ---
PT TO CT
--- NOTE | 2020-11-07 20:57 | NUR ---
Report received from JEREMY Dove and care [facility]. Waiting for US and CTA.
--- NOTE | 2020-11-07 21:05 | NUR ---
PT BACK FROM CT
[2020-11-07] MEDS ORDERED: OMNIPAQUE 350 MG/ML, 75ML BOTTLE ONE (21:19)
--- NOTE | 2020-11-07 21:23 | NUR ---
Pt back from CT and would like pain meds. Request for pain meds given to .
[2020-11-07] MEDS ORDERED: HYDROcodone/APAP 10/325 MG TABLET PO ONE (22:00)
[2020-11-07] MEDS ORDERED: APIXABAN 5 MG TABLET PO ONE (22:00)
--- NOTE | 2020-11-07 22:20 | NUR ---
Report given to Nancy and care transferred. Noted new pain med orders and Nancy aware not yet given. Pt updated as well. He is currently resting quietly in bed without acute distress.
[2020-11-07] MEDS ORDERED: APIXABAN 5 MG TABLET ONE (22:55)
[2020-11-07] MEDS ORDERED: HYDROcodone/APAP 10/325 MG TABLET ONE (22:55)
[2020-11-07 23:00] VITALS: BP 109/71
== END 2020-11-07 23:29 | disposition home or self-care (01) ==
LOC: ED 23:20
DX: J44.1 Chronic obstructive pulmonary disease with (acute) exacerbation (principal); I82.621 Acute embolism and thrombosis of deep veins of right upper extremity; R93.5 Abnormal findings on diagnostic imaging of other abdominal regions, including retroperitoneum; R94.31 Abnormal electrocardiogram [ECG] [EKG]; I11.0 Hypertensive heart disease with heart failure; I50.9 Heart failure, unspecified; Z90.89 Acquired absence of other organs
CPT/HCPCS: 36415; 71045; 71275; 80048; 82040; 84484; 85025; 85379; 93005; 93971; 94640; 99285; Q9967

== ENCOUNTER 2020-11-10 00:34 | Inpatient (IN) | payer MEDICAID ==
[~2020-11-10] VITALS: Ht 190.5 cm; Wt 91.3 kg
[2020-11-10] MEDS ORDERED: ALBUTEROL/IPRATROPIUM 2.5MG/0.5MG, 3 ML ONE ×2 (00:52→03:31)
[2020-11-10] MEDS: ALBUTEROL/IPRATROPIUM 2.5MG/0.5MG, 3 ML NPPB SCH ×2 (00:54→03:30)
[2020-11-10 00:59] LABS: MEAN CORPUSCULAR HEMOGLOBIN 28.2 pg (27.5-34.5); MEAN CORPUSCULAR HGB CONC 32.4 g/dL (33.2-36.2); MEAN PLATELET VOLUME 7.1 fL (7.4-10.4); PLATELET COUNT 517 x10^3/uL (130-400); RED BLOOD COUNT 3.77 x10^6/uL (4.38-5.82); RED CELL DISTRIBUTION WIDTH 19.6 % (9.4-14.8)
--- NOTE | 2020-11-10 01:00 | NUR ---
Pt comes in with compalints of chest pain and SOB. Started around 930pm. Pt states he was trying to walk here from home but it became to bad. Patient was discharge recently on home O2. Patient arrived without it, states that it just to much to carry around. Per EMS patient was in AFib RVR but after giving him a breathing treatment it was in NSR. Patient noted to be in Sinus tach on arrival. Patient medicated per DEC. 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
[2020-11-10 01:09] LABS: ALBUMIN 3.7 g/dL (3.4-5.0); ANION GAP 11 mmol/L (5-15); CALCIUM 9.3 mg/dL (8.5-10.1); CHLORIDE 100 mmol/L (98-107); CREATININE 0.62 mg/dL (0.7-1.3)
[2020-11-10 01:13] LABS: TROPONIN I < 0.015 ng/mL (0.000-0.045)
[2020-11-10 01:26] LABS: MD YES
[2020-11-10 01:32] LABS: BAND#(MANUAL) 0.36 x10^3/uL; BANDS%(MANUAL) 3 % (0-7); BASOS#(MANUAL) 0.12 x10^3/uL (0-0.1); BASOS% (MANUAL) 1 % (0-1); LYMPH#(MANUAL) 3.12 x10^3/uL (1-3.4); LYMPHS% (MANUAL) 26 % (22-44); MONOS#(MANUAL) 1.32 x10^3/uL (0.3-2.7); MONOS% (MANUAL) 11 % (2-9); MYELOCYTES# (MANUAL) 0.12 x10^3/uL (0-0); MYELOCYTES% (MANUAL) 1 % (0-0); SEG#(MANUAL) 6.96 x10^3/uL (1.8-6.8); SEGS% (MANUAL) 58 % (42-75)
[2020-11-10 01:33] LABS: ANISOCYTOSIS 1+; POLYCHROMASIA 1+
[2020-11-10 01:34] LABS: OVALOCYTES 1+; TEAR DROPS 1+
[2020-11-10 01:35] LABS: <PLATELET ESTIMATE> INCREASED; <PLT MORPHOLOGY> NORMAL PLT MORPH
[2020-11-10] MEDS ORDERED: DILTIAZEM 5 MG/ML, 5ML ONE (03:21)
[2020-11-10] MEDS ORDERED: DILTIAZEM 5 MG/ML, 5ML IVPush ONE (03:30)
--- NOTE | 2020-11-10 03:33 | NUR ---
Patient noted to be in in AFib RVR. Medicated per DEC. Patient given another breathing treatment. Patient is on threat monitoring analyst and continous oxygen monitoring. Patient offers no complaints at this time. Call light within reach
[2020-11-10] MEDS ORDERED: ONDANSETRON 2MG/ML, 2ML IVPush PRN (04:30)
[2020-11-10] MEDS ORDERED: morphine SULFATE 10 MG/ML, 1ML IVPush PRN (04:30)
[2020-11-10] MEDS ORDERED: hydrALAzine 20 MG/ML, 1ML IVPush PRN (04:30)
[2020-11-10] MEDS ORDERED: OXYcodone IR 5MG TABLET PO PRN (04:30)
[2020-11-10] MEDS ORDERED: PROMETHAZINE 25 MG/ML, 1ML IM PRN (04:30)
[2020-11-10] MEDS ORDERED: DOCUSATE 100 MG CAPSULE PO PRN (04:30)
[2020-11-10] MEDS ORDERED: ALBUTEROL HFA 90 MCG/SPRAY INH PRN (04:30)
[2020-11-10] MEDS ORDERED: BISACODYL 10 MG SUPP PR PRN (04:30)
[2020-11-10] MEDS ORDERED: POLYETHYLENE GLYCOL 17 GM PACKET PO PRN (04:30)
[2020-11-10] MEDS ORDERED: ONDANSETRON ODT 4 MG PO PRN (04:30)
[2020-11-10] MEDS ORDERED: DILTIAZEM 125 MG in SODIUM CHLORIDE 0.9% 100 ML IV SCH (04:30)
[2020-11-10 05:19] VITALS: BP 143/88
[2020-11-10] MEDS: SODIUM CHLORIDE 0.9% 1,000 ML IV SCH ×2 (06:33→15:58)
[2020-11-10 06:42] VITALS: BP 141/89
[2020-11-10 07:16] LABS: TROPONIN I < 0.015 ng/mL (0.000-0.045)
[2020-11-10] MEDS ORDERED: FLUTICASONE/VILANTEROL 100-25MCG/INH INH SCH (09:00)
[2020-11-10] MEDS ORDERED: TIOTROPIUM BROMIDE 18 MCG/INH INH SCH (09:00)
[2020-11-10] MEDS: FLUTICASONE/VILANTEROL 100-25MCG/INH INH SCH (09:49)
[2020-11-10] MEDS: APIXABAN 5 MG TABLET PO SCH ×2 (09:51→21:08)
[2020-11-10] MEDS: LISINOPRIL 10 MG TABLET PO SCH (09:51)
[2020-11-10] MEDS: OMEPRAZOLE 20 MG CAPSULE.DR PO SCH ×2 (09:51→21:08)
[2020-11-10] MEDS: TIOTROPIUM BROMIDE 18 MCG/INH INH SCH (09:51)
[2020-11-10] MEDS: GABAPENTIN 100 MG CAPSULE PO SCH ×3 (09:51→21:08)
[2020-11-10] MEDS ORDERED: ALBUTEROL HFA 90 MCG/SPRAY INH SCH (10:00)
[2020-11-10] MEDS ORDERED: DILTIAZEM HCL PO SCH (11:00)
[2020-11-10] MEDS: AMOXICILLIN 500 MG CAPSULE PO SCH ×2 (11:38→21:08)
[2020-11-10] MEDS: ALBUTEROL HFA 90 MCG/SPRAY INH SCH ×4 (11:38→23:03)
[2020-11-10] MEDS: DILTIAZEM 120 MG CAP.ER.24H PO SCH (11:41)
[2020-11-10 12:36] LABS: TROPONIN I < 0.015 ng/mL (0.000-0.045)
[2020-11-10 14:52] VITALS: BP 145/84
[2020-11-10] MEDS: FERROUS SULFATE 325 MG TABLET PO SCH (15:59)
[2020-11-10] MEDS: CARVEDILOL 12.5 MG TABLET PO SCH (16:02)
[2020-11-10 19:25] VITALS: BP 103/63
[2020-11-10] MEDS: MIRTAZAPINE 15 MG TABLET PO SCH (21:08)
[2020-11-11 01:04] VITALS: BP 130/92
[2020-11-11] MEDS: CARVEDILOL 12.5 MG TABLET PO SCH ×2 (05:09→18:37)
[2020-11-11] MEDS: ALBUTEROL HFA 90 MCG/SPRAY INH SCH ×5 (05:09→21:16)
[2020-11-11 06:02] LABS: MEAN CORPUSCULAR HEMOGLOBIN 28.3 pg (27.5-34.5); MEAN CORPUSCULAR HGB CONC 32.9 g/dL (33.2-36.2); MEAN PLATELET VOLUME 7.5 fL (7.4-10.4); PLATELET COUNT 377 x10^3/uL (130-400); RED BLOOD COUNT 3.21 x10^6/uL (4.38-5.82); RED CELL DISTRIBUTION WIDTH 19.6 % (9.4-14.8)
[2020-11-11 06:13] LABS: ALANINE AMINOTRANSFERASE 25 U/L (12-78); ALBUMIN 2.8 g/dL (3.4-5.0); ANION GAP 4 mmol/L (5-15); CALCIUM 8.6 mg/dL (8.5-10.1); CHLORIDE 106 mmol/L (98-107)
[2020-11-11 06:21] LABS: ALKALINE PHOSPHATASE 94 U/L (45-117); BILIRUBIN,TOTAL 0.3 mg/dL (0.2-1.0); CHOLESTEROL, TOTAL 170 mg/dL (140-239); HDL CHOL % 34 % (26-37); HDL CHOLESTEROL (DIRECT) 57 mg/dL (40-60); LDL CHOLESTEROL,CALCULATED 100 mg/dL (54-169); LDL/HDL RATIO 1.8 (0.5-3.0); TOTAL PROTEIN 5.4 g/dL (6.4-8.2); TRIGLYCERIDES 65 mg/dL (50-200); VLDL CHOLESTEROL 13 mg/dL (0-25)
[2020-11-11 07:54] LABS: MD YES
[2020-11-11 07:57] LABS: BAND#(MANUAL) 0.13 x10^3/uL; BANDS%(MANUAL) 2 % (0-7); LYMPH#(MANUAL) 0.99 x10^3/uL (1-3.4); LYMPHS% (MANUAL) 15 % (22-44); MONOS#(MANUAL) 0.13 x10^3/uL (0.3-2.7); MONOS% (MANUAL) 2 % (2-9); SEG#(MANUAL) 5.35 x10^3/uL (1.8-6.8); SEGS% (MANUAL) 81 % (42-75)
[2020-11-11 07:58] LABS: <PLATELET ESTIMATE> ADEQUATE; <PLT MORPHOLOGY> NORMAL PLT MORPH; ANISOCYTOSIS 1+; OVALOCYTES 1+; POLYCHROMASIA 1+
[2020-11-11] MEDS ORDERED: MAGNESIUM SULFATE PMX 2GM/50ML 50 ML IV ONE (08:00)
[2020-11-11] MEDS: FLUTICASONE/VILANTEROL 100-25MCG/INH INH SCH (08:03)
[2020-11-11] MEDS: TIOTROPIUM BROMIDE 18 MCG/INH INH SCH (08:03)
[2020-11-11] MEDS: DILTIAZEM 120 MG CAP.ER.24H PO SCH (08:06)
[2020-11-11] MEDS: FERROUS SULFATE 325 MG TABLET PO SCH ×2 (08:06→16:21)
[2020-11-11] MEDS: APIXABAN 5 MG TABLET PO SCH ×2 (08:06→21:17)
[2020-11-11] MEDS: LISINOPRIL 10 MG TABLET PO SCH (08:06)
[2020-11-11] MEDS: OMEPRAZOLE 20 MG CAPSULE.DR PO SCH ×2 (08:07→21:17)
[2020-11-11] MEDS: AMOXICILLIN 500 MG CAPSULE PO SCH ×2 (08:07→21:16)
[2020-11-11] MEDS: GABAPENTIN 100 MG CAPSULE PO SCH ×3 (08:07→21:17)
[2020-11-11] MEDS ORDERED: REGADENOSON 0.4 MG/5 ML SYRINGE ONE (09:10)
[2020-11-11 09:13] VITALS: BP 126/84
[2020-11-11 15:54] VITALS: BP 119/74
[2020-11-11] MEDS: KETOROLAC 30 MG/1 ML IM PRN (16:21)
[2020-11-11 19:55] VITALS: BP 130/87
[2020-11-11] MEDS: MIRTAZAPINE 15 MG TABLET PO SCH (21:17)
[2020-11-11] MEDS: ACETAMINOPHEN 325 MG TABLET PO PRN (21:17)
[2020-11-12 01:11] VITALS: BP 138/68
[2020-11-12] MEDS: CARVEDILOL 12.5 MG TABLET PO SCH ×2 (05:38→17:14)
[2020-11-12] MEDS: KETOROLAC 30 MG/1 ML IM PRN ×3 (05:39→23:20)
[2020-11-12] MEDS: ALBUTEROL HFA 90 MCG/SPRAY INH SCH ×5 (05:40→21:14)
[2020-11-12 07:09] VITALS: BP 136/92
[2020-11-12] MEDS: FLUTICASONE/VILANTEROL 100-25MCG/INH INH SCH (08:58)
[2020-11-12] MEDS: TIOTROPIUM BROMIDE 18 MCG/INH INH SCH (08:59)
[2020-11-12] MEDS: LISINOPRIL 10 MG TABLET PO SCH (09:01)
[2020-11-12] MEDS: GABAPENTIN 100 MG CAPSULE PO SCH ×3 (09:01→21:13)
[2020-11-12] MEDS: APIXABAN 5 MG TABLET PO SCH ×2 (09:01→21:13)
[2020-11-12] MEDS: FERROUS SULFATE 325 MG TABLET PO SCH ×2 (09:01→17:14)
[2020-11-12] MEDS: OMEPRAZOLE 20 MG CAPSULE.DR PO SCH ×2 (09:01→21:13)
[2020-11-12] MEDS: DILTIAZEM 120 MG CAP.ER.24H PO SCH (09:02)
[2020-11-12] MEDS: AMOXICILLIN 500 MG CAPSULE PO SCH ×2 (09:02→21:13)
[2020-11-12 13:19] VITALS: BP 137/88
[2020-11-12] MEDS: ACETAMINOPHEN 325 MG TABLET PO PRN (17:19)
[2020-11-12 19:27] VITALS: BP 140/85
[2020-11-12] MEDS: MIRTAZAPINE 15 MG TABLET PO SCH (21:13)
[2020-11-13 01:02] VITALS: BP 118/72
[2020-11-13] MEDS: ALBUTEROL HFA 90 MCG/SPRAY INH SCH ×5 (05:34→22:04)
[2020-11-13] MEDS: CARVEDILOL 12.5 MG TABLET PO SCH ×2 (05:34→16:21)
[2020-11-13 06:23] LABS: MEAN CORPUSCULAR HEMOGLOBIN 27.6 pg (27.5-34.5); MEAN CORPUSCULAR HGB CONC 31.8 g/dL (33.2-36.2); MEAN PLATELET VOLUME 8.2 fL (7.4-10.4); PLATELET COUNT 362 x10^3/uL (130-400); RED CELL DISTRIBUTION WIDTH 19.3 % (9.4-14.8)
[2020-11-13 06:28] LABS: ANION GAP 4 mmol/L (5-15); CALCIUM 8.6 mg/dL (8.5-10.1); CHLORIDE 105 mmol/L (98-107)
[2020-11-13 06:55] LABS: MD YES
[2020-11-13 06:59] LABS: BAND#(MANUAL) 0.45 x10^3/uL; BANDS%(MANUAL) 4 % (0-7); EOS#(MANUAL) 0.11 x10^3/uL (0.0-0.4); EOS% (MANUAL) 1 % (1-7); LYMPH#(MANUAL) 2.71 x10^3/uL (1-3.4); LYMPHS% (MANUAL) 24 % (22-44); METAMYELOCYTES# (MANUAL) 0.34 x10^3/uL (0-0); METAMYELOCYTES% (MANUAL) 3 % (0-1); MONOS% (MANUAL) 8 % (2-9); MYELOCYTES# (MANUAL) 0.11 x10^3/uL (0-0); MYELOCYTES% (MANUAL) 1 % (0-0); SEG#(MANUAL) 6.67 x10^3/uL (1.8-6.8); SEGS% (MANUAL) 59 % (42-75)
[2020-11-13 07:00] LABS: ANISOCYTOSIS 1+; HYPOCHROMIA 1+; OVALOCYTES 1+; POLYCHROMASIA 1+
[2020-11-13] MEDS ORDERED: POTASSIUM CHLORIDE 20 MEQ TAB.ER.PRT PO ONE (07:00)
[2020-11-13] MEDS ORDERED: MAGNESIUM SULFATE PMX 2GM/50ML 50 ML IV ONE (07:00)
[2020-11-13 07:01] LABS: <PLATELET ESTIMATE> ADEQUATE; <PLT MORPHOLOGY> NORMAL PLT MORPH
[2020-11-13 07:27] VITALS: BP 123/73
[2020-11-13] MEDS: FLUTICASONE/VILANTEROL 100-25MCG/INH INH SCH (08:19)
[2020-11-13] MEDS: AMOXICILLIN 500 MG CAPSULE PO SCH ×2 (08:20→22:03)
[2020-11-13] MEDS: APIXABAN 5 MG TABLET PO SCH ×2 (08:20→22:03)
[2020-11-13] MEDS: TIOTROPIUM BROMIDE 18 MCG/INH INH SCH (08:20)
[2020-11-13] MEDS: FERROUS SULFATE 325 MG TABLET PO SCH ×2 (08:20→16:22)
[2020-11-13] MEDS: LISINOPRIL 10 MG TABLET PO SCH (08:20)
[2020-11-13] MEDS: DILTIAZEM 120 MG CAP.ER.24H PO SCH (08:20)
[2020-11-13] MEDS: OMEPRAZOLE 20 MG CAPSULE.DR PO SCH ×2 (08:21→22:03)
[2020-11-13] MEDS: GABAPENTIN 100 MG CAPSULE PO SCH ×3 (08:21→22:03)
[2020-11-13] MEDS: KETOROLAC 30 MG/1 ML IM PRN (11:00)
[2020-11-13 13:30] VITALS: BP 147/93
[2020-11-13] MEDS: ACETAMINOPHEN 325 MG TABLET PO PRN (15:02)
[2020-11-13] MEDS: OXYcodone IR 5MG TABLET PO PRN ×2 (16:21→22:08)
[2020-11-13 18:53] VITALS: BP 153/92
[2020-11-13] MEDS: MIRTAZAPINE 15 MG TABLET PO SCH (22:03)
[2020-11-14 00:41] VITALS: BP 108/67
[2020-11-14 05:35] LABS: CREATININE 0.57 mg/dL (0.7-1.3)
[2020-11-14 05:41] LABS: ANION GAP 6 mmol/L (5-15); CHLORIDE 106 mmol/L (98-107)
[2020-11-14] MEDS: ALBUTEROL HFA 90 MCG/SPRAY INH SCH ×2 (06:24→10:28)
[2020-11-14] MEDS: CARVEDILOL 12.5 MG TABLET PO SCH (06:24)
[2020-11-14] MEDS: OXYcodone IR 5MG TABLET PO PRN (06:29)
[2020-11-14 07:26] VITALS: BP 127/86
[2020-11-14] MEDS ORDERED: PRED20TA PO (08:18)
[2020-11-14] MEDS ORDERED: AMOX-291 PO (08:18)
[2020-11-14] MEDS: TIOTROPIUM BROMIDE 18 MCG/INH INH SCH (08:37)
[2020-11-14] MEDS: FERROUS SULFATE 325 MG TABLET PO SCH (08:37)
[2020-11-14] MEDS: OMEPRAZOLE 20 MG CAPSULE.DR PO SCH (08:37)
[2020-11-14] MEDS: LISINOPRIL 10 MG TABLET PO SCH (08:37)
[2020-11-14] MEDS: DILTIAZEM 120 MG CAP.ER.24H PO SCH (08:37)
[2020-11-14] MEDS: GABAPENTIN 100 MG CAPSULE PO SCH (08:37)
[2020-11-14] MEDS: AMOXICILLIN 500 MG CAPSULE PO SCH (08:37)
[2020-11-14] MEDS: APIXABAN 5 MG TABLET PO SCH (08:37)
[2020-11-14] MEDS: FLUTICASONE/VILANTEROL 100-25MCG/INH INH SCH (08:38)
== END 2020-11-14 12:12 | disposition home or self-care (01) | DRG 309 ==
LOC: ED 01:04 → EDIP 04:40 → 5SO 05:04
PROVIDERS: ADMIT Internal Medicine; ATTEND Family Medicine
DX: I48.91 Unspecified atrial fibrillation (principal); F10.139 Alcohol abuse with withdrawal, unspecified; J44.1 Chronic obstructive pulmonary disease with (acute) exacerbation; J96.10 Chronic respiratory failure, unspecified whether with hypoxia or hypercapnia; E11.9 Type 2 diabetes mellitus without complications; I11.0 Hypertensive heart disease with heart failure; I50.9 Heart failure, unspecified; K21.9 Gastro-esophageal reflux disease without esophagitis; M21.372 Foot drop, left foot; Z72.0 Tobacco use; L01.00 Impetigo, unspecified; Z79.01 Long term (current) use of anticoagulants; Z86.16 Personal history of COVID-19; Z87.01 Personal history of pneumonia (recurrent); Z91.14 Patient's other noncompliance with medication regimen; Z91.013 Allergy to seafood; Z91.018 Allergy to other foods
CPT/HCPCS: 36415; 71045; 72128; 78452; 80048; 80053; 80061; 82040; 83036; 83735; 83880; 84443; 84484; 85025; 93005; 93017; 96374; 99291; G0378; J1885; J2785; A9502; C9898; J3475; J7030; J7512

== ENCOUNTER 2020-11-19 19:07 | Inpatient (IN) | payer MEDICAID ==
[~2020-11-19] VITALS: Ht 190.5 cm; Wt 80.0 kg
[~2020-11-19 19:07] MED LIST changes: +AMOX-291 PO; -FOLI-17 PO; +FOLI1TAB32 PO; -LISI-420 PO; +LISI10TA19 PO; -LISI10TA2 PO; +LISI20TA21 PO; -LISI40TA PO; +LISI40TA9 PO
--- NOTE | 2020-11-19 19:13 | NUR ---
PT BIB [facility] FROM [address] [place] [address] FOR SOB. PT HAS HX OF COPD. 85% RA UPON ARRIVAL OF EMS TO PT. PT RECEVIED ALBUTEROL AND DUONEB ENROUTE, 99% WITH THOSE RUNNING. PT LUNGS ARE SLIGHTLY WHEEZING ON AUSCULTATION. 3-5 WORD SENTENCE WITH SLIGHT SOB, SITTING UP ON GURNEY TO ASSIST WITH OXYGENATION AND PT HAS A SLIGHTLY INCREASED WORK OF BREATHING. BED IN LOWEST, CALL LIGHT ON LAP, RAILS ENGAGED, PROVIDED WARM BLANKET FOR COMFORT, WCTM. PT PLACED ON SPO2/BP/ECG MONITORING AT THIS TIME.
--- NOTE | 2020-11-19 20:09 | NUR ---
PT RESTING ON GURNEY, NAD, EYES CLOSED, EVEN RESPIRATIONS AT THIS TIME, APPEAR TO BE LESS LABORED AND PT TOLERATED LAYING BACK. WCTM.
--- NOTE | 2020-11-19 20:36 | NUR ---
ASHANTI CHA AT FOR EVAL AND POC. WHILE RESTING PT BEGAN TO DESAT INTO LOW 80S, PLACED ON 4L NC AT THIS TIME, AND NOW MAINTAINING SPO2 IN THE MID 90S. PT NAD, DENIES ADDITIONAL NEEDS, WCTM.
[2020-11-19] MEDS ORDERED: SODIUM CHLORIDE FLUSH 10ML SYR IVF ONE (21:00)
--- NOTE | 2020-11-19 21:52 | NUR ---
PT RESTING ON GURNEY, NAD, NO CHANGE IN CONDITION, APPEARS COMFORTABLE, BED IN LOWEST, CALL LIGHT ON LAP, LIGHTS DIMMED FOR COMFORT, EYES CLOSED, EVEN AND UNLABORED RESPIRATIONS, WCTM. WAITING FOR LAB RESULTS.
[2020-11-19 22:02] LABS: MEAN CORPUSCULAR HEMOGLOBIN 28.8 pg (27.5-34.5); MEAN CORPUSCULAR HGB CONC 32.5 g/dL (33.2-36.2); MEAN PLATELET VOLUME 7.6 fL (7.4-10.4); PLATELET COUNT 330 x10^3/uL (130-400); RED BLOOD COUNT 3.64 x10^6/uL (4.38-5.82)
[2020-11-19 22:04] LABS: ALANINE AMINOTRANSFERASE 28 U/L (12-78); ALBUMIN 3.4 g/dL (3.4-5.0); ANION GAP 6 mmol/L (5-15); CALCIUM 8.8 mg/dL (8.5-10.1); CHLORIDE 100 mmol/L (98-107); CREATININE 0.69 mg/dL (0.7-1.3)
[2020-11-19 22:06] LABS: ALKALINE PHOSPHATASE 97 U/L (45-117); BILIRUBIN,TOTAL 0.2 mg/dL (0.2-1.0); TOTAL PROTEIN 6.4 g/dL (6.4-8.2)
[2020-11-19 22:36] LABS: MD YES
[2020-11-19 22:40] LABS: LYMPH#(MANUAL) 3.89 x10^3/uL (1-3.4); LYMPHS% (MANUAL) 36 % (22-44); MONOS#(MANUAL) 0.76 x10^3/uL (0.3-2.7); MONOS% (MANUAL) 7 % (2-9); MYELOCYTES# (MANUAL) 0.22 x10^3/uL (0-0); MYELOCYTES% (MANUAL) 2 % (0-0); SEG#(MANUAL) 5.94 x10^3/uL (1.8-6.8); SEGS% (MANUAL) 55 % (42-75)
[2020-11-19 22:46] LABS: ANISOCYTOSIS 1+; HYPOCHROMIA 1+; OVALOCYTES 1+; POLYCHROMASIA 1+
[2020-11-19 22:47] LABS: <PLATELET ESTIMATE> ADEQUATE; <PLT MORPHOLOGY> NORMAL PLT MORPH
--- NOTE | 2020-11-20 00:38 | NUR ---
VARUN RN: PT ASLEEP IN [facility] AT THIS TIME. VSS AND UPDATED IN EMR. PT HAS CALL LIGHT WITHIN REACH.
--- NOTE | 2020-11-20 00:51 | NUR ---
TASK RN: REPORT OF PT TO JEREMY COOMBS; ALL QUESTIONS ANSWERED. TECH PAGED FOR TRANSPORT OF PT FROM ED TO FLOOR AT THIS TIME.
[2020-11-20 01:50] VITALS: BP 131/40
[2020-11-20] MEDS ORDERED: MELATONIN 5 MG TABLET PO PRN (05:30)
[2020-11-20] MEDS ORDERED: ONDANSETRON 2MG/ML, 2ML IVPush PRN (05:30)
[2020-11-20 05:41] VITALS: BP 140/79
[2020-11-20] MEDS: CARVEDILOL 12.5 MG TABLET PO SCH ×2 (05:44→17:04)
[2020-11-20] MEDS: ALBUTEROL HFA 90 MCG/SPRAY INH PRN ×3 (05:47→20:57)
[2020-11-20] MEDS ORDERED: methylPREDNISolone SOD SUCC 125 MG/2 ML IVPush SCH (06:00)
[2020-11-20] MEDS: AZITHROMYCIN 500 MG in SODIUM CHLORIDE 0.9% 250 ML IV SCH (06:18)
[2020-11-20 07:21] VITALS: BP 123/81
[2020-11-20] MEDS: OMEPRAZOLE 20 MG CAPSULE.DR PO SCH (08:13)
[2020-11-20] MEDS: APIXABAN 5 MG TABLET PO SCH ×2 (08:13→20:57)
[2020-11-20] MEDS: GABAPENTIN 100 MG CAPSULE PO SCH ×3 (08:13→20:57)
[2020-11-20] MEDS: DILTIAZEM 120 MG CAP.ER.24H PO SCH (08:14)
[2020-11-20] MEDS: THIAMINE 100MG TABLET PO/NG SCH (08:14)
[2020-11-20] MEDS: LISINOPRIL 10 MG TABLET PO SCH (08:14)
[2020-11-20] MEDS: SODIUM CHLORIDE 0.9% 1,000 ML IV SCH ×2 (08:16→17:04)
[2020-11-20] MEDS ORDERED: methylPREDNISolone SOD SUCC 125 MG/2 ML ONE (08:19)
[2020-11-20] MEDS: FLUTICASONE/VILANTEROL 100-25MCG/INH INH SCH (08:22)
[2020-11-20] MEDS: TIOTROPIUM BROMIDE 18 MCG/INH INH SCH (08:22)
[2020-11-20 10:13] LABS: AMPHETAMINE SCREEN, URINE Negative (Negative); BARBITURATE SCREEN, URINE Negative (Negative); BENZODIAZEPINE SCREEN, URINE Negative (Negative); CANNABINOID SCREEN, URINE Negative (Negative); COCAINE SCREEN, URINE Negative (Negative); METHADONE SCREEN, URINE Negative (Negative); OPIATE SCREEN, URINE Positive (Negative)
[2020-11-20 13:39] VITALS: BP 119/87
[2020-11-20 14:31] LABS: CLOSTRIDIUM DIFFICILE ANTIGEN NEGATIVE; CLOSTRIDIUM DIFFICILE TOXIN NEGATIVE (Negative)
[2020-11-20 19:02] VITALS: BP 137/84
[2020-11-20] MEDS: methylPREDNISolone SOD SUCC 125 MG/2 ML IVPush SCH (20:57)
[2020-11-21 00:44] VITALS: BP 154/86
[2020-11-21] MEDS: ALBUTEROL HFA 90 MCG/SPRAY INH PRN ×4 (01:18→21:16)
[2020-11-21 05:23] VITALS: BP 150/99
[2020-11-21] MEDS: CARVEDILOL 12.5 MG TABLET PO SCH ×2 (05:25→18:20)
[2020-11-21] MEDS: AZITHROMYCIN 500 MG in SODIUM CHLORIDE 0.9% 250 ML IV SCH (05:44)
[2020-11-21 05:58] LABS: BASOPHILS % (AUTO) 0 % (0-1); EOSINOPHILS % (AUTO) 0 % (1-7); LYMPHOCYTES % (AUTO) 8 % (22-44); MEAN CORPUSCULAR HEMOGLOBIN 28.7 pg (27.5-34.5); MEAN CORPUSCULAR HGB CONC 32.6 g/dL (33.2-36.2); MONOCYTES % (AUTO) 2 % (2-9); NEUTROPHILS % (AUTO) 89 % (42-75); PLATELET COUNT 246 x10^3/uL (130-400); RED BLOOD COUNT 3.07 x10^6/uL (4.38-5.82); RED CELL DISTRIBUTION WIDTH 20.1 % (9.4-14.8)
[2020-11-21 06:07] LABS: ANION GAP 6 mmol/L (5-15); CALCIUM 8.6 mg/dL (8.5-10.1); CHLORIDE 103 mmol/L (98-107)
[2020-11-21 06:09] LABS: CREATININE 0.71 mg/dL (0.7-1.3)
[2020-11-21 06:50] LABS: MD SCAN
[2020-11-21 09:07] VITALS: BP 157/100
[2020-11-21] MEDS: LISINOPRIL 10 MG TABLET PO SCH (09:21)
[2020-11-21] MEDS: DILTIAZEM 120 MG CAP.ER.24H PO SCH (09:21)
[2020-11-21] MEDS: THIAMINE 100MG TABLET PO/NG SCH (09:21)
[2020-11-21] MEDS: OMEPRAZOLE 20 MG CAPSULE.DR PO SCH (09:21)
[2020-11-21] MEDS: GABAPENTIN 100 MG CAPSULE PO SCH ×3 (09:21→20:04)
[2020-11-21] MEDS: methylPREDNISolone SOD SUCC 125 MG/2 ML IVPush SCH ×2 (09:21→20:05)
[2020-11-21] MEDS: APIXABAN 5 MG TABLET PO SCH ×2 (09:21→20:04)
[2020-11-21] MEDS: FLUTICASONE/VILANTEROL 100-25MCG/INH INH SCH (09:22)
[2020-11-21] MEDS: TIOTROPIUM BROMIDE 18 MCG/INH INH SCH (09:22)
[2020-11-21 12:19] VITALS: BP 153/96
[2020-11-21] MEDS: SODIUM CHLORIDE 0.9% 1,000 ML IV SCH (12:47)
[2020-11-21 19:59] VITALS: BP 177/96
[2020-11-21] MEDS: ACETAMINOPHEN 325 MG TABLET PO PRN (20:05)
[2020-11-21] MEDS: hydrALAzine 20 MG/ML, 1ML IVPush PRN (20:05)
[2020-11-22] MEDS: SODIUM CHLORIDE 0.9% 1,000 ML IV SCH (00:21)
[2020-11-22 00:41] VITALS: BP 177/105
[2020-11-22] MEDS: hydrALAzine 20 MG/ML, 1ML IVPush PRN ×2 (00:43→05:15)
[2020-11-22] MEDS: ALBUTEROL HFA 90 MCG/SPRAY INH PRN ×3 (01:13→19:59)
[2020-11-22] MEDS ORDERED: ALBUTEROL SULFATE 2.5 MG/3 ML ONE (01:41)
[2020-11-22] MEDS ORDERED: ALBUTEROL SULFATE 2.5 MG/3 ML NPPB ONE (02:00)
[2020-11-22 05:14] VITALS: BP 162/107
[2020-11-22] MEDS: CARVEDILOL 12.5 MG TABLET PO SCH ×2 (05:14→17:49)
[2020-11-22 06:02] LABS: BASOPHILS % (AUTO) 0 % (0-1); EOSINOPHILS % (AUTO) 0 % (1-7); LYMPHOCYTES % (AUTO) 5 % (22-44); MEAN CORPUSCULAR HEMOGLOBIN 28.3 pg (27.5-34.5); MEAN PLATELET VOLUME 8.1 fL (7.4-10.4); MONOCYTES % (AUTO) 2 % (2-9); NEUTROPHILS % (AUTO) 93 % (42-75); PLATELET COUNT 233 x10^3/uL (130-400); RED BLOOD COUNT 3.19 x10^6/uL (4.38-5.82)
[2020-11-22 06:05] LABS: MD NO
[2020-11-22 06:12] LABS: ANION GAP 6 mmol/L (5-15); CHLORIDE 103 mmol/L (98-107); CREATININE 0.66 mg/dL (0.7-1.3)
[2020-11-22] MEDS: GABAPENTIN 100 MG CAPSULE PO SCH ×3 (08:00→19:59)
[2020-11-22] MEDS: THIAMINE 100MG TABLET PO/NG SCH (08:00)
[2020-11-22] MEDS: DILTIAZEM 120 MG CAP.ER.24H PO SCH (08:00)
[2020-11-22] MEDS: OMEPRAZOLE 20 MG CAPSULE.DR PO SCH (08:00)
[2020-11-22] MEDS: APIXABAN 5 MG TABLET PO SCH ×2 (08:00→19:59)
[2020-11-22] MEDS: LISINOPRIL 10 MG TABLET PO SCH (08:00)
[2020-11-22] MEDS: TIOTROPIUM BROMIDE 18 MCG/INH INH SCH (08:01)
[2020-11-22] MEDS: FLUTICASONE/VILANTEROL 100-25MCG/INH INH SCH (08:01)
[2020-11-22] MEDS: methylPREDNISolone SOD SUCC 125 MG/2 ML IVPush SCH ×2 (08:01→19:59)
[2020-11-22 10:02] VITALS: BP 150/84
[2020-11-22 14:09] VITALS: BP 158/95
[2020-11-22 20:06] VITALS: BP 154/92
[2020-11-23 01:16] VITALS: BP 169/91
[2020-11-23] MEDS: ALBUTEROL HFA 90 MCG/SPRAY INH PRN (05:22)
[2020-11-23] MEDS: CARVEDILOL 12.5 MG TABLET PO SCH ×2 (05:22→16:26)
[2020-11-23 06:10] LABS: BASOPHILS % (AUTO) 0 % (0-1); EOSINOPHILS % (AUTO) 0 % (1-7); LYMPHOCYTES % (AUTO) 5 % (22-44); MEAN CORPUSCULAR HEMOGLOBIN 28.2 pg (27.5-34.5); MEAN CORPUSCULAR HGB CONC 32.2 g/dL (33.2-36.2); MONOCYTES % (AUTO) 3 % (2-9); NEUTROPHILS % (AUTO) 92 % (42-75); PLATELET COUNT 206 x10^3/uL (130-400); RED CELL DISTRIBUTION WIDTH 19.2 % (9.4-14.8)
[2020-11-23 06:25] LABS: CALCIUM 8.8 mg/dL (8.5-10.1); CREATININE 0.58 mg/dL (0.7-1.3)
[2020-11-23 06:36] LABS: ANION GAP 3 mmol/L (5-15); CHLORIDE 100 mmol/L (98-107)
[2020-11-23 06:57] VITALS: BP 160/90
[2020-11-23 07:05] LABS: MD MORPH REVIEW ONLY; POLYCHROMASIA 1+
[2020-11-23 07:06] LABS: <PLATELET ESTIMATE> ADEQUATE; <PLT MORPHOLOGY> NORMAL PLT MORPH; OVALOCYTES 1+; TEAR DROPS 1+
[2020-11-23] MEDS: APIXABAN 5 MG TABLET PO SCH ×2 (08:20→20:20)
[2020-11-23] MEDS: DILTIAZEM 120 MG CAP.ER.24H PO SCH (08:20)
[2020-11-23] MEDS: THIAMINE 100MG TABLET PO/NG SCH (08:21)
[2020-11-23] MEDS: FLUTICASONE/VILANTEROL 100-25MCG/INH INH SCH (08:21)
[2020-11-23] MEDS: LISINOPRIL 10 MG TABLET PO SCH (08:21)
[2020-11-23] MEDS: methylPREDNISolone SOD SUCC 125 MG/2 ML IVPush SCH ×2 (08:21→20:20)
[2020-11-23] MEDS: OMEPRAZOLE 20 MG CAPSULE.DR PO SCH (08:21)
[2020-11-23] MEDS: GABAPENTIN 100 MG CAPSULE PO SCH ×3 (08:21→20:20)
[2020-11-23] MEDS: TIOTROPIUM BROMIDE 18 MCG/INH INH SCH (08:54)
[2020-11-23 13:53] VITALS: BP 156/90
[2020-11-23 20:18] VITALS: BP 164/97
[2020-11-23] MEDS: ACETAMINOPHEN 325 MG TABLET PO PRN (20:20)
[2020-11-24] MEDS: hydrALAzine 20 MG/ML, 1ML IVPush PRN (00:55)
[2020-11-24 01:18] VITALS: BP 192/108
[2020-11-24] MEDS: ALBUTEROL HFA 90 MCG/SPRAY INH PRN ×2 (02:21→07:53)
[2020-11-24 02:22] VITALS: BP 159/103
[2020-11-24] MEDS: ACETAMINOPHEN 325 MG TABLET PO PRN ×4 (03:37→20:40)
[2020-11-24] MEDS: CARVEDILOL 12.5 MG TABLET PO SCH ×2 (05:19→18:33)
[2020-11-24] MEDS: DILTIAZEM 120 MG CAP.ER.24H PO SCH (07:49)
[2020-11-24] MEDS: OMEPRAZOLE 20 MG CAPSULE.DR PO SCH ×2 (07:49→22:30)
[2020-11-24] MEDS: GABAPENTIN 100 MG CAPSULE PO SCH ×3 (07:49→20:40)
[2020-11-24] MEDS: FLUTICASONE/VILANTEROL 100-25MCG/INH INH SCH (07:50)
[2020-11-24] MEDS: LISINOPRIL 10 MG TABLET PO SCH (07:50)
[2020-11-24] MEDS: APIXABAN 5 MG TABLET PO SCH ×2 (07:50→20:40)
[2020-11-24] MEDS: TIOTROPIUM BROMIDE 18 MCG/INH INH SCH (07:50)
[2020-11-24] MEDS: THIAMINE 100MG TABLET PO/NG SCH (07:50)
[2020-11-24] MEDS: methylPREDNISolone SOD SUCC 125 MG/2 ML IVPush SCH ×2 (07:50→20:40)
[2020-11-24 09:04] VITALS: BP 153/85
[2020-11-24 15:51] VITALS: BP 160/84
[2020-11-24 20:00] VITALS: BP 165/99
[2020-11-25 01:50] VITALS: BP 167/100
[2020-11-25] MEDS: CARVEDILOL 12.5 MG TABLET PO SCH ×2 (05:40→17:15)
[2020-11-25 06:47] VITALS: BP 151/85
[2020-11-25] MEDS: TIOTROPIUM BROMIDE 18 MCG/INH INH SCH (08:48)
[2020-11-25] MEDS: FLUTICASONE/VILANTEROL 100-25MCG/INH INH SCH (08:48)
[2020-11-25] MEDS: methylPREDNISolone SOD SUCC 125 MG/2 ML IVPush SCH ×2 (08:49→20:35)
[2020-11-25] MEDS: LISINOPRIL 10 MG TABLET PO SCH (08:50)
[2020-11-25] MEDS: APIXABAN 5 MG TABLET PO SCH ×2 (08:50→20:35)
[2020-11-25] MEDS: DILTIAZEM 120 MG CAP.ER.24H PO SCH (08:50)
[2020-11-25] MEDS: GABAPENTIN 100 MG CAPSULE PO SCH ×3 (08:50→20:35)
[2020-11-25] MEDS: OMEPRAZOLE 20 MG CAPSULE.DR PO SCH ×2 (08:50→20:36)
[2020-11-25] MEDS: THIAMINE 100MG TABLET PO/NG SCH (08:51)
[2020-11-25] MEDS: ALBUTEROL HFA 90 MCG/SPRAY INH PRN ×2 (08:58→20:34)
[2020-11-25] MEDS: OXYcodone IR 5MG TABLET PO PRN ×2 (14:16→20:35)
[2020-11-25 15:23] VITALS: BP 173/102
[2020-11-25] MEDS: hydrALAzine 20 MG/ML, 1ML IVPush PRN (15:41)
[2020-11-25] MEDS ORDERED: BISACODYL 10 MG SUPP PR PRN (16:30)
[2020-11-25 17:14] VITALS: BP 170/100
[2020-11-25 19:32] VITALS: BP 160/96
[2020-11-25] MEDS: MELATONIN 5 MG TABLET PO SCH (20:35)
[2020-11-25] MEDS: SENNOSIDES 8.6 MG TABLET PO SCH (20:36)
[2020-11-25] MEDS: POLYETHYLENE GLYCOL 17 GM PACKET PO SCH (20:36)
[2020-11-26] VITALS (7 sets, daily range): BP systolic 128–177; BP diastolic 89–110
[2020-11-26] MEDS: OXYcodone IR 5MG TABLET PO PRN ×4 (04:05→20:51)
[2020-11-26] MEDS: CARVEDILOL 12.5 MG TABLET PO SCH ×2 (06:24→16:33)
[2020-11-26] MEDS: hydrALAzine 20 MG/ML, 1ML IVPush PRN ×2 (06:47→15:54)
[2020-11-26] MEDS: FLUTICASONE/VILANTEROL 100-25MCG/INH INH SCH ×2 (08:24→08:27)
[2020-11-26] MEDS: TIOTROPIUM BROMIDE 18 MCG/INH INH SCH (08:24)
[2020-11-26] MEDS: THIAMINE 100MG TABLET PO/NG SCH (08:25)
[2020-11-26] MEDS: SENNOSIDES 8.6 MG TABLET PO SCH ×2 (08:25→20:47)
[2020-11-26] MEDS: OMEPRAZOLE 20 MG CAPSULE.DR PO SCH ×2 (08:25→20:48)
[2020-11-26] MEDS: GABAPENTIN 100 MG CAPSULE PO SCH ×3 (08:25→20:47)
[2020-11-26] MEDS: APIXABAN 5 MG TABLET PO SCH ×2 (08:25→20:48)
[2020-11-26] MEDS: methylPREDNISolone SOD SUCC 40 MG/ML IVPush SCH ×2 (08:25→20:46)
[2020-11-26] MEDS: LISINOPRIL 10 MG TABLET PO SCH (08:25)
[2020-11-26] MEDS: POLYETHYLENE GLYCOL 17 GM PACKET PO SCH ×3 (08:26→20:38)
[2020-11-26] MEDS: DILTIAZEM 120 MG CAP.ER.24H PO SCH (08:26)
[2020-11-26] MEDS: MELATONIN 5 MG TABLET PO SCH (20:47)
[2020-11-27 00:48] VITALS: BP 159/101
[2020-11-27 05:25] VITALS: BP 157/112
[2020-11-27] MEDS: CARVEDILOL 12.5 MG TABLET PO SCH ×2 (05:27→16:21)
[2020-11-27] MEDS: OXYcodone IR 5MG TABLET PO PRN ×4 (05:30→20:37)
[2020-11-27 06:50] VITALS: BP 175/115
[2020-11-27] MEDS: hydrALAzine 20 MG/ML, 1ML IVPush PRN (07:22)
[2020-11-27 08:25] VITALS: BP 134/82
[2020-11-27] MEDS: SENNOSIDES 8.6 MG TABLET PO SCH ×2 (09:00→20:38)
[2020-11-27] MEDS: TIOTROPIUM BROMIDE 18 MCG/INH INH SCH (09:00)
[2020-11-27] MEDS: FLUTICASONE/VILANTEROL 100-25MCG/INH INH SCH (09:00)
[2020-11-27] MEDS: POLYETHYLENE GLYCOL 17 GM PACKET PO SCH ×2 (09:00→20:37)
[2020-11-27] MEDS: ALBUTEROL HFA 90 MCG/SPRAY INH PRN ×2 (09:07→22:22)
[2020-11-27] MEDS: THIAMINE 100MG TABLET PO/NG SCH (09:08)
[2020-11-27] MEDS: GABAPENTIN 100 MG CAPSULE PO SCH ×3 (09:08→20:37)
[2020-11-27] MEDS: OMEPRAZOLE 20 MG CAPSULE.DR PO SCH ×2 (09:08→20:37)
[2020-11-27] MEDS: APIXABAN 5 MG TABLET PO SCH ×2 (09:08→20:37)
[2020-11-27] MEDS: LISINOPRIL 10 MG TABLET PO SCH ×2 (09:08→20:38)
[2020-11-27] MEDS: DILTIAZEM 120 MG CAP.ER.24H PO SCH (09:09)
[2020-11-27] MEDS: methylPREDNISolone SOD SUCC 40 MG/ML IVPush SCH (09:09)
[2020-11-27 12:34] VITALS: BP 166/92
[2020-11-27] MEDS: ACETAMINOPHEN 325 MG TABLET PO PRN (18:12)
[2020-11-27 19:24] VITALS: BP 162/94
[2020-11-27] MEDS: MELATONIN 5 MG TABLET PO SCH (20:37)
[2020-11-27] MEDS ORDERED: KETOROLAC 30 MG/1 ML IVPush ONE (21:00)
[2020-11-28] VITALS (8 sets, daily range): BP systolic 100–168; BP diastolic 68–96
[2020-11-28] MEDS: OXYcodone IR 5MG TABLET PO PRN ×5 (01:04→18:32)
[2020-11-28] MEDS: MORPHINE SULFATE 4 MG/ML, 1ML IVPush PRN ×2 (01:44→08:26)
[2020-11-28] MEDS: ALBUTEROL HFA 90 MCG/SPRAY INH PRN ×2 (04:16→22:11)
[2020-11-28] MEDS: CARVEDILOL 12.5 MG TABLET PO SCH ×2 (05:19→17:22)
[2020-11-28 06:07] LABS: ANION GAP 4 mmol/L (5-15); CALCIUM 8.7 mg/dL (8.5-10.1); CHLORIDE 94 mmol/L (98-107); CREATININE 1.23 mg/dL (0.7-1.3)
[2020-11-28] MEDS: SENNOSIDES 8.6 MG TABLET PO SCH ×2 (08:17→22:05)
[2020-11-28] MEDS: POLYETHYLENE GLYCOL 17 GM PACKET PO SCH ×2 (08:17→22:05)
[2020-11-28] MEDS: GABAPENTIN 100 MG CAPSULE PO SCH ×3 (08:24→22:05)
[2020-11-28] MEDS: OMEPRAZOLE 20 MG CAPSULE.DR PO SCH ×2 (08:24→22:05)
[2020-11-28] MEDS: THIAMINE 100MG TABLET PO/NG SCH (08:25)
[2020-11-28] MEDS: LISINOPRIL 10 MG TABLET PO SCH ×2 (08:25→22:05)
[2020-11-28] MEDS: APIXABAN 5 MG TABLET PO SCH ×2 (08:26→22:05)
[2020-11-28] MEDS: DILTIAZEM 120 MG CAP.ER.24H PO SCH (08:26)
[2020-11-28] MEDS: FLUTICASONE/VILANTEROL 100-25MCG/INH INH SCH (08:26)
[2020-11-28] MEDS: TIOTROPIUM BROMIDE 18 MCG/INH INH SCH (08:26)
[2020-11-28] MEDS ORDERED: SODIUM POLYSTYRENE SULFONATE ORAL SUSP PO ONE (10:00)
[2020-11-28] MEDS: ACETAMINOPHEN 325 MG TABLET PO PRN ×3 (13:13→22:05)
[2020-11-28] MEDS: MELATONIN 5 MG TABLET PO SCH (22:05)
[2020-11-29] MEDS: ALBUTEROL/IPRATROPIUM 2.5MG/0.5MG, 3 ML NPPB SCH ×2 (00:27→19:00)
[2020-11-29] MEDS: OXYcodone IR 5MG TABLET PO PRN ×2 (01:26→05:49)
[2020-11-29 01:37] VITALS: BP 133/84
[2020-11-29] MEDS: ACETAMINOPHEN 325 MG TABLET PO PRN (02:50)
[2020-11-29 04:54] VITALS: BP 147/86
[2020-11-29] MEDS: ALBUTEROL HFA 90 MCG/SPRAY INH PRN (04:54)
[2020-11-29] MEDS: CARVEDILOL 12.5 MG TABLET PO SCH (04:54)
[2020-11-29 06:45] VITALS: BP 152/83
[2020-11-29] MEDS: METHOCARBAMOL 750 MG TABLET PO PRN (08:29)
[2020-11-29] MEDS: TIOTROPIUM BROMIDE 18 MCG/INH INH SCH (08:29)
[2020-11-29] MEDS: FLUTICASONE/VILANTEROL 100-25MCG/INH INH SCH ×2 (08:29→08:37)
[2020-11-29] MEDS: DILTIAZEM 120 MG CAP.ER.24H PO SCH (08:30)
[2020-11-29] MEDS: APIXABAN 5 MG TABLET PO SCH ×2 (08:30→20:35)
[2020-11-29] MEDS: THIAMINE 100MG TABLET PO/NG SCH (08:30)
[2020-11-29] MEDS: LISINOPRIL 10 MG TABLET PO SCH (08:30)
[2020-11-29] MEDS: OMEPRAZOLE 20 MG CAPSULE.DR PO SCH ×2 (08:30→20:35)
[2020-11-29] MEDS: GABAPENTIN 100 MG CAPSULE PO SCH ×3 (08:30→20:35)
[2020-11-29] MEDS: POLYETHYLENE GLYCOL 17 GM PACKET PO SCH ×2 (08:35→20:36)
[2020-11-29] MEDS: SENNOSIDES 8.6 MG TABLET PO SCH ×2 (08:35→20:36)
[2020-11-29] MEDS ORDERED: MORPHINE SULFATE 4 MG/ML, 1ML IVPush ONE (10:00)
[2020-11-29] MEDS ORDERED: DIAZEPAM 5 MG/ML, 2ML IV PRN (10:30)
[2020-11-29 10:39] LABS: MEAN CORPUSCULAR HEMOGLOBIN 27.5 pg (27.5-34.5); MEAN CORPUSCULAR HGB CONC 31.3 g/dL (33.2-36.2); MEAN PLATELET VOLUME 8.5 fL (7.4-10.4); PLATELET COUNT 139 x10^3/uL (130-400); RED BLOOD COUNT 3.34 x10^6/uL (4.38-5.82); RED CELL DISTRIBUTION WIDTH 19.1 % (9.4-14.8)
[2020-11-29 10:49] LABS: CALCIUM 8.6 mg/dL (8.5-10.1)
[2020-11-29 11:00] LABS: ANION GAP 3 mmol/L (5-15); CHLORIDE 94 mmol/L (98-107); CREATININE 1.03 mg/dL (0.7-1.3); MD YES
[2020-11-29 11:01] LABS: BAND#(MANUAL) 5.57 x10^3/uL; BANDS%(MANUAL) 29 % (0-7); LYMPH#(MANUAL) 0.58 x10^3/uL (1-3.4); LYMPHS% (MANUAL) 3 % (22-44); MONOS#(MANUAL) 0.96 x10^3/uL (0.3-2.7); MONOS% (MANUAL) 5 % (2-9); SEGS% (MANUAL) 63 % (42-75)
[2020-11-29 11:02] LABS: ANISOCYTOSIS 1+; OVALOCYTES 1+; POLYCHROMASIA 1+
[2020-11-29 11:05] LABS: <PLATELET ESTIMATE> ADEQUATE; <PLT MORPHOLOGY> NORMAL PLT MORPH; TEAR DROPS 1+
[2020-11-29] MEDS ORDERED: OMNIPAQUE 350 MG/ML, 100ML BOTTLE ONE (11:09)
[2020-11-29 11:35] LABS: TROPONIN I 0.017 ng/mL (0.000-0.045)
[2020-11-29] MEDS ORDERED: SODIUM ZIRCONIUM CYCLOSILICATE 10 GM PO ONE (12:00)
[2020-11-29 12:04] VITALS: BP 115/75
[2020-11-29] MEDS ORDERED: ALBUTEROL/IPRATROPIUM 2.5MG/0.5MG, 3 ML ONE (13:49)
[2020-11-29] MEDS ORDERED: ALBUTEROL/IPRATROPIUM 2.5MG/0.5MG, 3 ML NPPB PRN (14:00)
[2020-11-29] MEDS: methylPREDNISolone SOD SUCC 125 MG/2 ML IVPush SCH ×2 (15:00→20:35)
[2020-11-29] MEDS: CEFTRIAXONE PMX 2GM/50ML 50 ML IVPB SCH (16:15)
[2020-11-29 16:54] LABS: MICROSCOPIC INDICATED
[2020-11-29] MEDS: MELATONIN 5 MG TABLET PO SCH (20:35)
[2020-11-29] MEDS ORDERED: PHARMACOKINETIC CONSULTATION MC ONE (23:30)
[2020-11-29] MEDS ORDERED: VANCOMYCIN 2,000 MG in SODIUM CHLORIDE 0.9% 500 ML IV ONE (23:30)
[2020-11-29] MEDS ORDERED: PHARMACOKINETIC MONITORING MC PRN (23:30)
[2020-11-29] MEDS ORDERED: VANCOMYCIN PER PHARMACY MC PRN (23:30)
[2020-11-30] MEDS ORDERED: ALBUMIN HUMAN 25% 100 ML IV ONE
[2020-11-30] MEDS: ALBUTEROL/IPRATROPIUM 2.5MG/0.5MG, 3 ML NPPB SCH ×4 (03:00→21:00)
[2020-11-30 04:24] LABS: BASOPHILS % (AUTO) 1 % (0-1); EOSINOPHILS % (AUTO) 0 % (1-7); LYMPHOCYTES % (AUTO) 2 % (22-44); MEAN CORPUSCULAR HEMOGLOBIN 27.9 pg (27.5-34.5); MEAN CORPUSCULAR HGB CONC 31.7 g/dL (33.2-36.2); MEAN PLATELET VOLUME 8.8 fL (7.4-10.4); MONOCYTES % (AUTO) 4 % (2-9); NEUTROPHILS % (AUTO) 93 % (42-75); PLATELET COUNT 110 x10^3/uL (130-400); RED BLOOD COUNT 2.79 x10^6/uL (4.38-5.82); RED CELL DISTRIBUTION WIDTH 18.7 % (9.4-14.8)
[2020-11-30 04:25] LABS: MD NO
[2020-11-30 04:27] LABS: ALANINE AMINOTRANSFERASE 65 U/L (12-78); ALBUMIN 2.6 g/dL (3.4-5.0); ANION GAP 0 mmol/L (5-15); CALCIUM 8.7 mg/dL (8.5-10.1); CHLORIDE 97 mmol/L (98-107); CREATININE 0.66 mg/dL (0.7-1.3)
[2020-11-30 04:29] LABS: ALKALINE PHOSPHATASE 91 U/L (45-117); BILIRUBIN,TOTAL 0.3 mg/dL (0.2-1.0); TOTAL PROTEIN 5.9 g/dL (6.4-8.2)
[2020-11-30] MEDS: methylPREDNISolone SOD SUCC 125 MG/2 ML IVPush SCH ×3 (05:27→21:57)
[2020-11-30] MEDS: APIXABAN 5 MG TABLET PO SCH ×2 (08:48→19:52)
[2020-11-30] MEDS: DILTIAZEM 120 MG CAP.ER.24H PO SCH (08:48)
[2020-11-30] MEDS: THIAMINE 100MG TABLET PO/NG SCH (08:48)
[2020-11-30] MEDS: OMEPRAZOLE 20 MG CAPSULE.DR PO SCH ×2 (08:49→19:52)
[2020-11-30] MEDS: POLYETHYLENE GLYCOL 17 GM PACKET PO SCH ×2 (08:49→19:50)
[2020-11-30] MEDS: GABAPENTIN 100 MG CAPSULE PO SCH ×3 (08:49→19:51)
[2020-11-30] MEDS: AZITHROMYCIN 500 MG TABLET PO SCH (08:49)
[2020-11-30] MEDS: TIOTROPIUM BROMIDE 18 MCG/INH INH SCH (09:00)
[2020-11-30] MEDS: SENNOSIDES 8.6 MG TABLET PO SCH ×2 (09:00→19:52)
[2020-11-30] MEDS: FLUTICASONE/VILANTEROL 100-25MCG/INH INH SCH (09:36)
[2020-11-30] MEDS: VANCOMYCIN 1,500 MG in SODIUM CHLORIDE 0.9% 250 ML IV SCH ×2 (11:46→23:52)
[2020-11-30] MEDS: CEFTRIAXONE PMX 2GM/50ML 50 ML IVPB SCH (16:18)
[2020-11-30] MEDS: MELATONIN 5 MG TABLET PO SCH (19:52)
[2020-11-30] MEDS: ALBUTEROL HFA 90 MCG/SPRAY INH PRN (19:53)
[2020-11-30] MEDS: DILTIAZEM 5 MG/ML, 5ML IVPush PRN (21:57)
[2020-12-01] MEDS: ALBUTEROL/IPRATROPIUM 2.5MG/0.5MG, 3 ML NPPB SCH ×4 (01:10→19:20)
[2020-12-01] MEDS: METHOCARBAMOL 750 MG TABLET PO PRN (01:30)
[2020-12-01] MEDS: OXYcodone IR 5MG TABLET PO PRN ×4 (01:31→19:53)
[2020-12-01] MEDS: hydrALAzine 20 MG/ML, 1ML IVPush PRN ×2 (02:18→23:15)
[2020-12-01] MEDS: DILTIAZEM 5 MG/ML, 5ML IVPush PRN (03:41)
[2020-12-01] MEDS ORDERED: DILTIAZEM 125 MG in SODIUM CHLORIDE 0.9% 100 ML IV PRN (05:00)
[2020-12-01] MEDS: methylPREDNISolone SOD SUCC 125 MG/2 ML IVPush SCH ×2 (05:42→14:28)
[2020-12-01] MEDS: MORPHINE SULFATE 4 MG/ML, 1ML IVPush PRN ×3 (05:43→22:21)
[2020-12-01 06:13] LABS: BASOPHILS % (AUTO) 0 % (0-1); EOSINOPHILS % (AUTO) 0 % (1-7); LYMPHOCYTES % (AUTO) 2 % (22-44); MD NO; MEAN CORPUSCULAR HEMOGLOBIN 27.3 pg (27.5-34.5); MEAN CORPUSCULAR HGB CONC 31.4 g/dL (33.2-36.2); MEAN PLATELET VOLUME 8.7 fL (7.4-10.4); MONOCYTES % (AUTO) 6 % (2-9); NEUTROPHILS % (AUTO) 92 % (42-75); PLATELET COUNT 125 x10^3/uL (130-400); RED BLOOD COUNT 3.14 x10^6/uL (4.38-5.82)
[2020-12-01 06:19] LABS: ANION GAP 6 mmol/L (5-15); CALCIUM 9.9 mg/dL (8.5-10.1); CHLORIDE 96 mmol/L (98-107); CREATININE 0.89 mg/dL (0.7-1.3)
[2020-12-01] MEDS ORDERED: FILTER 0.22 MICRON IV PRN (08:30)
[2020-12-01] MEDS ORDERED: AMIODARONE 150 MG in DEXTROSE 5% 100 ML IV ONE (08:30)
[2020-12-01] MEDS: SENNOSIDES 8.6 MG TABLET PO SCH ×2 (09:00→19:21)
[2020-12-01] MEDS: DILTIAZEM 120 MG CAP.ER.24H PO SCH (09:00)
[2020-12-01] MEDS: OMEPRAZOLE 20 MG CAPSULE.DR PO SCH ×2 (09:00→19:53)
[2020-12-01] MEDS: GABAPENTIN 100 MG CAPSULE PO SCH ×4 (09:00→19:52)
[2020-12-01] MEDS: POLYETHYLENE GLYCOL 17 GM PACKET PO SCH ×2 (09:00→19:21)
[2020-12-01] MEDS: THIAMINE 100MG TABLET PO/NG SCH (09:00)
[2020-12-01] MEDS: AZITHROMYCIN 500 MG TABLET PO SCH (09:00)
[2020-12-01] MEDS: APIXABAN 5 MG TABLET PO SCH ×2 (09:00→19:53)
[2020-12-01] MEDS: FLUTICASONE/VILANTEROL 100-25MCG/INH INH SCH (09:10)
[2020-12-01] MEDS: AMIODARONE 450 MG in DEXTROSE 5% 241 ML IV PRN ×2 (09:12→17:06)
[2020-12-01] MEDS: VANCOMYCIN 1,500 MG in SODIUM CHLORIDE 0.9% 250 ML IV SCH (12:02)
[2020-12-01] MEDS: METOPROLOL TARTRATE 25 MG TAB PO SCH ×2 (12:05→19:20)
[2020-12-01] MEDS: TIOTROPIUM BROMIDE 18 MCG/INH INH SCH (12:44)
[2020-12-01] MEDS ORDERED: VANCOMYCIN PER PHARMACY MC PRN (17:00)
[2020-12-01] MEDS: CEFTRIAXONE PMX 2GM/50ML 50 ML IVPB SCH (17:13)
[2020-12-01] MEDS: MELATONIN 5 MG TABLET PO SCH (19:52)
[2020-12-02] MEDS: ALBUTEROL/IPRATROPIUM 2.5MG/0.5MG, 3 ML NPPB SCH ×2 (01:10→06:39)
[2020-12-02] MEDS: OXYcodone IR 5MG TABLET PO PRN ×4 (02:05→20:05)
[2020-12-02] MEDS: MORPHINE SULFATE 4 MG/ML, 1ML IVPush PRN ×2 (02:47→09:55)
[2020-12-02] MEDS: hydrALAzine 20 MG/ML, 1ML IVPush PRN (03:28)
[2020-12-02] MEDS: METOPROLOL TARTRATE 25 MG TAB PO SCH ×3 (03:30→19:50)
[2020-12-02 05:21] LABS: BASOPHILS % (AUTO) 0 % (0-1); EOSINOPHILS % (AUTO) 0 % (1-7); LYMPHOCYTES % (AUTO) 1 % (22-44); MEAN CORPUSCULAR HEMOGLOBIN 27.9 pg (27.5-34.5); MEAN CORPUSCULAR HGB CONC 31.9 g/dL (33.2-36.2); MEAN PLATELET VOLUME 8.4 fL (7.4-10.4); MONOCYTES % (AUTO) 6 % (2-9); NEUTROPHILS % (AUTO) 93 % (42-75); PLATELET COUNT 129 x10^3/uL (130-400); RED CELL DISTRIBUTION WIDTH 18.7 % (9.4-14.8)
[2020-12-02 05:32] LABS: CHLORIDE 95 mmol/L (98-107)
[2020-12-02 05:36] LABS: ANION GAP 4 mmol/L (5-15); CALCIUM 10.2 mg/dL (8.5-10.1); CREATININE 0.72 mg/dL (0.7-1.3)
[2020-12-02 05:45] LABS: MD SCAN
[2020-12-02] MEDS ORDERED: VANCOMYCIN 1,600 MG in SODIUM CHLORIDE 0.9% 250 ML IV SCH (06:00)
[2020-12-02] MEDS: SENNOSIDES 8.6 MG TABLET PO SCH ×2 (09:00→19:50)
[2020-12-02] MEDS: POLYETHYLENE GLYCOL 17 GM PACKET PO SCH ×2 (09:00→19:50)
[2020-12-02] MEDS: AMIODARONE 200 MG TABLET PO SCH ×2 (09:27→19:54)
[2020-12-02] MEDS: DILTIAZEM 240 MG CAP.ER.24H PO SCH (09:27)
[2020-12-02] MEDS: AZITHROMYCIN 500 MG TABLET PO SCH (09:27)
[2020-12-02] MEDS: APIXABAN 5 MG TABLET PO SCH ×2 (09:27→19:54)
[2020-12-02] MEDS: GABAPENTIN 100 MG CAPSULE PO SCH ×3 (09:28→19:54)
[2020-12-02] MEDS: OMEPRAZOLE 20 MG CAPSULE.DR PO SCH ×2 (09:28→19:54)
[2020-12-02] MEDS: THIAMINE 100MG TABLET PO/NG SCH (09:28)
[2020-12-02] MEDS: FLUTICASONE/VILANTEROL 100-25MCG/INH INH SCH (09:29)
[2020-12-02 09:30] LABS: HCT (SEDRATE) 27.6 % (39.2-51.8)
[2020-12-02] MEDS: TIOTROPIUM BROMIDE 18 MCG/INH INH SCH (09:30)
[2020-12-02] MEDS ORDERED: ALBUTEROL/IPRATROPIUM 2.5MG/0.5MG, 3 ML NPPB PRN (10:00)
[2020-12-02] MEDS: CEFAZOLIN PMX 2GM/50ML 50 ML IVPB SCH ×2 (11:30→18:21)
[2020-12-02] MEDS: BUSPIRONE 5 MG TABLET PO SCH ×3 (11:35→19:54)
[2020-12-02] MEDS: MELATONIN 5 MG TABLET PO SCH ×2 (19:54→20:05)
[2020-12-03] MEDS: OXYcodone IR 5MG TABLET PO PRN ×5 (00:04→20:54)
[2020-12-03] MEDS: CEFAZOLIN PMX 2GM/50ML 50 ML IVPB SCH ×3 (02:45→18:22)
[2020-12-03 05:13] LABS: ANION GAP 4 mmol/L (5-15); CALCIUM 9.4 mg/dL (8.5-10.1); CHLORIDE 99 mmol/L (98-107); CREATININE 0.63 mg/dL (0.7-1.3)
[2020-12-03] MEDS: MORPHINE SULFATE 4 MG/ML, 1ML IVPush PRN ×2 (05:32→12:10)
[2020-12-03 06:01] LABS: BASOPHILS % (AUTO) 0 % (0-1); EOSINOPHILS % (AUTO) 0 % (1-7); LYMPHOCYTES % (AUTO) 5 % (22-44); MEAN CORPUSCULAR HEMOGLOBIN 27.6 pg (27.5-34.5); MEAN CORPUSCULAR HGB CONC 31.9 g/dL (33.2-36.2); MEAN PLATELET VOLUME 8.6 fL (7.4-10.4); MONOCYTES % (AUTO) 7 % (2-9); NEUTROPHILS % (AUTO) 87 % (42-75); PLATELET COUNT 110 x10^3/uL (130-400); RED BLOOD COUNT 3.17 x10^6/uL (4.38-5.82); RED CELL DISTRIBUTION WIDTH 19.2 % (9.4-14.8)
[2020-12-03 06:41] LABS: MD SCAN
[2020-12-03] MEDS: METOPROLOL TARTRATE 25 MG TAB PO SCH ×2 (08:41→20:53)
[2020-12-03] MEDS: BUSPIRONE 5 MG TABLET PO SCH ×3 (08:41→20:53)
[2020-12-03] MEDS: DILTIAZEM 240 MG CAP.ER.24H PO SCH (08:41)
[2020-12-03] MEDS: THIAMINE 100MG TABLET PO/NG SCH (08:42)
[2020-12-03] MEDS: AMIODARONE 200 MG TABLET PO SCH ×2 (08:42→20:53)
[2020-12-03] MEDS: AZITHROMYCIN 500 MG TABLET PO SCH (08:42)
[2020-12-03] MEDS: OMEPRAZOLE 20 MG CAPSULE.DR PO SCH ×2 (08:42→20:54)
[2020-12-03] MEDS: SENNOSIDES 8.6 MG TABLET PO SCH ×2 (08:42→20:54)
[2020-12-03] MEDS: GABAPENTIN 100 MG CAPSULE PO SCH ×3 (08:42→20:54)
[2020-12-03] MEDS: APIXABAN 5 MG TABLET PO SCH ×2 (08:42→20:53)
[2020-12-03] MEDS: POLYETHYLENE GLYCOL 17 GM PACKET PO SCH ×2 (08:42→20:52)
[2020-12-03] MEDS: TIOTROPIUM BROMIDE 18 MCG/INH INH SCH (08:43)
[2020-12-03] MEDS: FLUTICASONE/VILANTEROL 100-25MCG/INH INH SCH (08:43)
[2020-12-03] MEDS: hydrALAzine 20 MG/ML, 1ML IVPush PRN (10:04)
[2020-12-03 12:28] VITALS: BP 151/90
[2020-12-03 19:49] VITALS: BP 160/68
[2020-12-03] MEDS: MELATONIN 5 MG TABLET PO SCH (20:54)
[2020-12-04 01:25] VITALS: BP 155/67
[2020-12-04] MEDS: CEFAZOLIN PMX 2GM/50ML 50 ML IVPB SCH ×3 (01:56→19:40)
[2020-12-04 08:50] VITALS: BP 188/122
[2020-12-04] MEDS: APIXABAN 5 MG TABLET PO SCH ×2 (09:14→19:41)
[2020-12-04] MEDS: BUSPIRONE 5 MG TABLET PO SCH ×3 (09:14→19:41)
[2020-12-04] MEDS: AZITHROMYCIN 500 MG TABLET PO SCH (09:15)
[2020-12-04] MEDS: DILTIAZEM 240 MG CAP.ER.24H PO SCH (09:15)
[2020-12-04] MEDS: OXYcodone IR 5MG TABLET PO PRN ×3 (09:15→19:40)
[2020-12-04] MEDS: SENNOSIDES 8.6 MG TABLET PO SCH ×2 (09:15→19:41)
[2020-12-04] MEDS: GABAPENTIN 100 MG CAPSULE PO SCH ×3 (09:15→19:41)
[2020-12-04] MEDS: METOPROLOL TARTRATE 25 MG TAB PO SCH ×2 (09:15→19:42)
[2020-12-04] MEDS: hydrALAzine 20 MG/ML, 1ML IVPush PRN (09:16)
[2020-12-04] MEDS: OMEPRAZOLE 20 MG CAPSULE.DR PO SCH (09:16)
[2020-12-04] MEDS: AMIODARONE 200 MG TABLET PO SCH ×2 (09:16→19:42)
[2020-12-04] MEDS: THIAMINE 100MG TABLET PO/NG SCH (09:16)
[2020-12-04] MEDS: TIOTROPIUM BROMIDE 18 MCG/INH INH SCH (09:29)
[2020-12-04] MEDS: POLYETHYLENE GLYCOL 17 GM PACKET PO SCH ×2 (09:29→19:41)
[2020-12-04] MEDS: ALBUTEROL HFA 90 MCG/SPRAY INH PRN ×2 (09:29→19:48)
[2020-12-04] MEDS: FLUTICASONE/VILANTEROL 100-25MCG/INH INH SCH (09:29)
[2020-12-04 14:11] VITALS: BP 133/83
[2020-12-04] MEDS ORDERED: GADOTERATE 10 MMOL/20ML SYR ONE (18:21)
[2020-12-04 19:02] VITALS: BP 128/80
[2020-12-04] MEDS: PANTOPRAZOLE 40MG TABLET PO SCH (19:41)
[2020-12-04] MEDS: MELATONIN 5 MG TABLET PO SCH (19:42)
[2020-12-05 02:00] VITALS: BP 142/83
[2020-12-05] MEDS: CEFAZOLIN PMX 2GM/50ML 50 ML IVPB SCH ×3 (03:15→20:02)
[2020-12-05 07:36] VITALS: BP 145/80
[2020-12-05] MEDS: METOPROLOL TARTRATE 25 MG TAB PO SCH ×2 (08:05→20:02)
[2020-12-05] MEDS: OXYcodone IR 5MG TABLET PO PRN ×4 (08:05→23:03)
[2020-12-05] MEDS: GABAPENTIN 100 MG CAPSULE PO SCH ×3 (08:06→20:02)
[2020-12-05] MEDS: BUSPIRONE 5 MG TABLET PO SCH ×3 (08:06→20:02)
[2020-12-05] MEDS: DILTIAZEM 240 MG CAP.ER.24H PO SCH (08:06)
[2020-12-05] MEDS: THIAMINE 100MG TABLET PO/NG SCH (08:06)
[2020-12-05] MEDS: PANTOPRAZOLE 40MG TABLET PO SCH ×2 (08:06→20:01)
[2020-12-05] MEDS: SENNOSIDES 8.6 MG TABLET PO SCH ×2 (08:06→20:03)
[2020-12-05] MEDS: AZITHROMYCIN 500 MG TABLET PO SCH (08:07)
[2020-12-05] MEDS: AMIODARONE 200 MG TABLET PO SCH ×2 (08:07→20:01)
[2020-12-05] MEDS: APIXABAN 5 MG TABLET PO SCH ×2 (08:07→20:02)
[2020-12-05] MEDS: POLYETHYLENE GLYCOL 17 GM PACKET PO SCH ×2 (08:10→20:02)
[2020-12-05] MEDS: FLUTICASONE/VILANTEROL 100-25MCG/INH INH SCH (08:11)
[2020-12-05] MEDS: ALBUTEROL HFA 90 MCG/SPRAY INH PRN ×2 (08:11→23:03)
[2020-12-05] MEDS: TIOTROPIUM BROMIDE 18 MCG/INH INH SCH (08:11)
[2020-12-05 09:10] LABS: MEAN CORPUSCULAR HEMOGLOBIN 27.5 pg (27.5-34.5); MEAN CORPUSCULAR HGB CONC 31.9 g/dL (33.2-36.2); MEAN PLATELET VOLUME 8.8 fL (7.4-10.4); PLATELET COUNT 150 x10^3/uL (130-400); RED BLOOD COUNT 3.19 x10^6/uL (4.38-5.82); RED CELL DISTRIBUTION WIDTH 19.3 % (9.4-14.8)
[2020-12-05 09:12] LABS: MD YES
[2020-12-05 09:22] LABS: ALBUMIN 2.2 g/dL (3.4-5.0); CALCIUM 9.5 mg/dL (8.5-10.1); CHLORIDE 97 mmol/L (98-107)
[2020-12-05 09:29] LABS: <PLATELET ESTIMATE> ADEQUATE; <PLT MORPHOLOGY> NORMAL PLT MORPH; ANISOCYTOSIS 1+; LYMPH#(MANUAL) 2.07 x10^3/uL (1-3.4); LYMPHS% (MANUAL) 13 % (22-44); METAMYELOCYTES# (MANUAL) 0.16 x10^3/uL (0-0); METAMYELOCYTES% (MANUAL) 1 % (0-1); MONOS#(MANUAL) 0.48 x10^3/uL (0.3-2.7); MONOS% (MANUAL) 3 % (2-9); MYELOCYTES# (MANUAL) 0.16 x10^3/uL (0-0); MYELOCYTES% (MANUAL) 1 % (0-0); SEG#(MANUAL) 13.04 x10^3/uL (1.8-6.8); SEGS% (MANUAL) 82 % (42-75)
[2020-12-05 09:30] LABS: ALANINE AMINOTRANSFERASE 21 U/L (12-78); ALKALINE PHOSPHATASE 110 U/L (45-117); ANION GAP 4 mmol/L (5-15); BILIRUBIN,TOTAL 0.3 mg/dL (0.2-1.0); CREATININE 0.65 mg/dL (0.7-1.3); POLYCHROMASIA 1+; TOTAL PROTEIN 6.1 g/dL (6.4-8.2)
[2020-12-05 09:31] LABS: STOMATOCYTES 1+; TOXIC GRAN 1+
[2020-12-05] MEDS: METHOCARBAMOL 750 MG TABLET PO PRN (10:02)
[2020-12-05] MEDS ORDERED: OXYcodone IR 5MG TABLET ONE (11:29)
[2020-12-05 12:09] VITALS: BP 132/86
[2020-12-05] MEDS ORDERED: GADOTERATE 10 MMOL/20 ML VIAL ONE (14:48)
[2020-12-05 19:47] VITALS: BP 135/84
[2020-12-05] MEDS: MELATONIN 5 MG TABLET PO SCH (20:02)
[2020-12-06 01:30] VITALS: BP 153/92
[2020-12-06] MEDS: CEFAZOLIN PMX 2GM/50ML 50 ML IVPB SCH ×3 (03:28→20:10)
[2020-12-06] MEDS: ALBUTEROL HFA 90 MCG/SPRAY INH PRN (04:53)
[2020-12-06 05:34] LABS: BASOPHILS % (AUTO) 1 % (0-1); EOSINOPHILS % (AUTO) 0 % (1-7); LYMPHOCYTES % (AUTO) 7 % (22-44); MEAN CORPUSCULAR HEMOGLOBIN 27.7 pg (27.5-34.5); MEAN CORPUSCULAR HGB CONC 32.1 g/dL (33.2-36.2); MEAN PLATELET VOLUME 8.8 fL (7.4-10.4); MONOCYTES % (AUTO) 3 % (2-9); NEUTROPHILS % (AUTO) 90 % (42-75); PLATELET COUNT 175 x10^3/uL (130-400); RED BLOOD COUNT 3.15 x10^6/uL (4.38-5.82); RED CELL DISTRIBUTION WIDTH 18.6 % (9.4-14.8)
[2020-12-06 05:36] LABS: MD NO
[2020-12-06 05:38] LABS: HCT (SEDRATE) 27.2 % (39.2-51.8)
[2020-12-06 05:42] LABS: CALCIUM 9.1 mg/dL (8.5-10.1)
[2020-12-06 05:45] LABS: CREATININE 0.67 mg/dL (0.7-1.3)
[2020-12-06 05:54] LABS: ANION GAP 4 mmol/L (5-15); CHLORIDE 97 mmol/L (98-107)
[2020-12-06 06:27] VITALS: BP 144/85
[2020-12-06] MEDS: FLUTICASONE/VILANTEROL 100-25MCG/INH INH SCH (08:15)
[2020-12-06] MEDS: PANTOPRAZOLE 40MG TABLET PO SCH ×2 (08:16→20:08)
[2020-12-06] MEDS: METOPROLOL TARTRATE 25 MG TAB PO SCH ×2 (08:16→20:08)
[2020-12-06] MEDS: TIOTROPIUM BROMIDE 18 MCG/INH INH SCH (08:16)
[2020-12-06] MEDS: DILTIAZEM 240 MG CAP.ER.24H PO SCH (08:17)
[2020-12-06] MEDS: APIXABAN 5 MG TABLET PO SCH ×2 (08:17→20:09)
[2020-12-06] MEDS: AMIODARONE 200 MG TABLET PO SCH ×2 (08:17→20:11)
[2020-12-06] MEDS: BUSPIRONE 5 MG TABLET PO SCH ×3 (08:17→20:09)
[2020-12-06] MEDS: GABAPENTIN 100 MG CAPSULE PO SCH ×3 (08:17→20:09)
[2020-12-06] MEDS: THIAMINE 100MG TABLET PO/NG SCH (08:18)
[2020-12-06] MEDS: POLYETHYLENE GLYCOL 17 GM PACKET PO SCH ×2 (08:18→20:09)
[2020-12-06] MEDS: SENNOSIDES 8.6 MG TABLET PO SCH ×2 (08:18→20:08)
[2020-12-06] MEDS: OXYcodone IR 5MG TABLET PO PRN ×2 (10:00→16:26)
[2020-12-06 12:14] VITALS: BP 133/78
[2020-12-06] MEDS: MORPHINE SULFATE 4 MG/ML, 1ML IVPush PRN (13:49)
[2020-12-06] MEDS ORDERED: MAGNESIUM SULFATE PMX 4GM/100M 100 ML IV ONE (17:30)
[2020-12-06] MEDS ORDERED: MAGNESIUM SULFATE PMX 2GM/50ML 50 ML IV ONE (17:30)
[2020-12-06] MEDS ORDERED: MAGNESIUM SULFATE 6 GM in SODIUM CHLORIDE 0.9% 250 ML IV ONE (18:00)
[2020-12-06 19:09] VITALS: BP 157/93
[2020-12-06] MEDS: MELATONIN 5 MG TABLET PO SCH (20:09)
[2020-12-07 00:48] VITALS: BP 140/91
[2020-12-07] MEDS: MORPHINE SULFATE 4 MG/ML, 1ML IVPush PRN ×3 (01:33→20:21)
[2020-12-07] MEDS: CEFAZOLIN PMX 2GM/50ML 50 ML IVPB SCH ×3 (04:12→19:30)
[2020-12-07 05:38] LABS: CALCIUM 9.3 mg/dL (8.5-10.1)
[2020-12-07 05:40] LABS: BASOPHILS % (AUTO) 0 % (0-1); EOSINOPHILS % (AUTO) 1 % (1-7); LYMPHOCYTES % (AUTO) 8 % (22-44); MEAN CORPUSCULAR HEMOGLOBIN 27.4 pg (27.5-34.5); MEAN CORPUSCULAR HGB CONC 31.8 g/dL (33.2-36.2); MEAN PLATELET VOLUME 8.9 fL (7.4-10.4); MONOCYTES % (AUTO) 4 % (2-9); NEUTROPHILS % (AUTO) 88 % (42-75); PLATELET COUNT 164 x10^3/uL (130-400); RED BLOOD COUNT 2.87 x10^6/uL (4.38-5.82); RED CELL DISTRIBUTION WIDTH 19.2 % (9.4-14.8)
[2020-12-07 05:45] LABS: ANION GAP 2 mmol/L (5-15); CHLORIDE 97 mmol/L (98-107)
[2020-12-07 06:07] LABS: MD SCAN
[2020-12-07 06:31] VITALS: BP 150/87
[2020-12-07] MEDS: PANTOPRAZOLE 40MG TABLET PO SCH ×2 (08:42→21:00)
[2020-12-07] MEDS: DILTIAZEM 240 MG CAP.ER.24H PO SCH (08:43)
[2020-12-07] MEDS: GABAPENTIN 100 MG CAPSULE PO SCH ×3 (08:43→20:20)
[2020-12-07] MEDS: BUSPIRONE 5 MG TABLET PO SCH ×3 (08:43→20:17)
[2020-12-07] MEDS: APIXABAN 5 MG TABLET PO SCH ×2 (08:44→20:18)
[2020-12-07] MEDS: SENNOSIDES 8.6 MG TABLET PO SCH ×2 (08:44→20:20)
[2020-12-07] MEDS: POLYETHYLENE GLYCOL 17 GM PACKET PO SCH ×2 (08:44→20:19)
[2020-12-07] MEDS: METOPROLOL TARTRATE 25 MG TAB PO SCH ×2 (08:44→20:19)
[2020-12-07] MEDS: AMIODARONE 200 MG TABLET PO SCH ×2 (08:44→20:18)
[2020-12-07] MEDS: THIAMINE 100MG TABLET PO/NG SCH (08:44)
[2020-12-07] MEDS: FLUTICASONE/VILANTEROL 100-25MCG/INH INH SCH (08:45)
[2020-12-07] MEDS: TIOTROPIUM BROMIDE 18 MCG/INH INH SCH (08:45)
[2020-12-07] MEDS: OXYcodone IR 5MG TABLET PO PRN ×3 (08:48→23:05)
[2020-12-07 12:08] VITALS: BP 139/62
[2020-12-07 19:04] VITALS: BP 160/90
[2020-12-07] MEDS: MELATONIN 5 MG TABLET PO SCH (20:19)
[2020-12-07] MEDS: METHOCARBAMOL 750 MG TABLET PO PRN (23:04)
[2020-12-08 02:09] VITALS: BP 152/85
[2020-12-08] MEDS: CEFAZOLIN PMX 2GM/50ML 50 ML IVPB SCH ×3 (03:30→19:49)
[2020-12-08] MEDS: MORPHINE SULFATE 4 MG/ML, 1ML IVPush PRN ×3 (03:44→17:27)
[2020-12-08 06:22] LABS: BASOPHILS % (AUTO) 1 % (0-1); EOSINOPHILS % (AUTO) 0 % (1-7); LYMPHOCYTES % (AUTO) 8 % (22-44); MEAN CORPUSCULAR HEMOGLOBIN 27.5 pg (27.5-34.5); MEAN CORPUSCULAR HGB CONC 32.1 g/dL (33.2-36.2); MEAN PLATELET VOLUME 8.3 fL (7.4-10.4); MONOCYTES % (AUTO) 4 % (2-9); NEUTROPHILS % (AUTO) 87 % (42-75); PLATELET COUNT 212 x10^3/uL (130-400); RED CELL DISTRIBUTION WIDTH 19.3 % (9.4-14.8)
[2020-12-08 06:31] LABS: ALBUMIN 2.2 g/dL (3.4-5.0); ANION GAP 3 mmol/L (5-15); CALCIUM 9.3 mg/dL (8.5-10.1); CHLORIDE 98 mmol/L (98-107)
[2020-12-08 06:37] LABS: ALANINE AMINOTRANSFERASE 16 U/L (12-78); ALKALINE PHOSPHATASE 111 U/L (45-117); BILIRUBIN,TOTAL 0.2 mg/dL (0.2-1.0); CREATININE 0.94 mg/dL (0.7-1.3); TOTAL PROTEIN 6.4 g/dL (6.4-8.2)
[2020-12-08 06:40] VITALS: BP 152/88
[2020-12-08] MEDS: ALBUTEROL HFA 90 MCG/SPRAY INH PRN ×2 (06:41→20:06)
[2020-12-08 06:51] LABS: MD SCAN
[2020-12-08] MEDS: POLYETHYLENE GLYCOL 17 GM PACKET PO SCH ×2 (09:00→19:54)
[2020-12-08] MEDS: SENNOSIDES 8.6 MG TABLET PO SCH ×2 (09:00→19:55)
[2020-12-08] MEDS: THIAMINE 100MG TABLET PO/NG SCH (09:10)
[2020-12-08] MEDS: PANTOPRAZOLE 40MG TABLET PO SCH ×2 (09:10→19:54)
[2020-12-08] MEDS: AMIODARONE 200 MG TABLET PO SCH ×2 (09:11→19:54)
[2020-12-08] MEDS: APIXABAN 5 MG TABLET PO SCH ×2 (09:11→19:54)
[2020-12-08] MEDS: METOPROLOL TARTRATE 25 MG TAB PO SCH ×2 (09:11→19:52)
[2020-12-08] MEDS: DILTIAZEM 240 MG CAP.ER.24H PO SCH (09:11)
[2020-12-08] MEDS: GABAPENTIN 100 MG CAPSULE PO SCH ×3 (09:12→19:53)
[2020-12-08] MEDS: BUSPIRONE 5 MG TABLET PO SCH ×3 (09:12→19:53)
[2020-12-08] MEDS: FLUTICASONE/VILANTEROL 100-25MCG/INH INH SCH (09:40)
[2020-12-08] MEDS: TIOTROPIUM BROMIDE 18 MCG/INH INH SCH (09:40)
[2020-12-08] MEDS ORDERED: FUROSEMIDE 40 MG/4 ML IV ONE (11:00)
[2020-12-08 12:39] VITALS: BP 141/92
[2020-12-08] MEDS: METHOCARBAMOL 750 MG TABLET PO PRN (14:11)
[2020-12-08] MEDS: OXYcodone IR 5MG TABLET PO PRN ×2 (14:12→21:42)
[2020-12-08 19:03] VITALS: BP 132/76
[2020-12-08] MEDS ORDERED: BUSPIRONE 10 MG TABLET ONE (19:45)
[2020-12-08] MEDS: MELATONIN 5 MG TABLET PO SCH (19:52)
[2020-12-09] VITALS (7 sets, daily range): BP systolic 110–158; BP diastolic 72–96
[2020-12-09] MEDS: CEFAZOLIN PMX 2GM/50ML 50 ML IVPB SCH ×3 (04:06→20:01)
[2020-12-09] MEDS: MORPHINE SULFATE 4 MG/ML, 1ML IVPush PRN ×3 (04:53→20:01)
[2020-12-09 06:33] LABS: BASOPHILS % (AUTO) 1 % (0-1); EOSINOPHILS % (AUTO) 1 % (1-7); LYMPHOCYTES % (AUTO) 11 % (22-44); MEAN CORPUSCULAR HEMOGLOBIN 27.2 pg (27.5-34.5); MEAN CORPUSCULAR HGB CONC 31.5 g/dL (33.2-36.2); MEAN PLATELET VOLUME 9.2 fL (7.4-10.4); MONOCYTES % (AUTO) 6 % (2-9); NEUTROPHILS % (AUTO) 81 % (42-75); PLATELET COUNT 205 x10^3/uL (130-400); RED BLOOD COUNT 2.95 x10^6/uL (4.38-5.82); RED CELL DISTRIBUTION WIDTH 19.9 % (9.4-14.8)
[2020-12-09 06:35] LABS: MD NO
[2020-12-09 06:45] LABS: ANION GAP 3 mmol/L (5-15); CHLORIDE 99 mmol/L (98-107)
[2020-12-09] MEDS: OXYcodone IR 5MG TABLET PO PRN ×2 (06:45→15:56)
[2020-12-09 06:47] LABS: CREATININE 0.61 mg/dL (0.7-1.3)
[2020-12-09] MEDS ORDERED: SODIUM CHLORIDE 0.9% 1,000 ML IV ONE (07:30)
[2020-12-09] MEDS ORDERED: MAGNESIUM SULFATE PMX 2GM/50ML 50 ML IV ONE (07:30)
[2020-12-09] MEDS: BUSPIRONE 5 MG TABLET PO SCH ×3 (08:06→20:07)
[2020-12-09] MEDS: APIXABAN 5 MG TABLET PO SCH ×2 (08:06→20:08)
[2020-12-09] MEDS: METOPROLOL TARTRATE 25 MG TAB PO SCH ×2 (08:07→20:07)
[2020-12-09] MEDS: AMIODARONE 200 MG TABLET PO SCH ×2 (08:07→20:07)
[2020-12-09] MEDS: GABAPENTIN 100 MG CAPSULE PO SCH ×3 (08:07→20:07)
[2020-12-09] MEDS: DILTIAZEM 240 MG CAP.ER.24H PO SCH (08:07)
[2020-12-09] MEDS: THIAMINE 100MG TABLET PO/NG SCH (08:08)
[2020-12-09] MEDS: TIOTROPIUM BROMIDE 18 MCG/INH INH SCH (08:08)
[2020-12-09] MEDS: PANTOPRAZOLE 40MG TABLET PO SCH ×2 (08:08→20:07)
[2020-12-09] MEDS: ALBUTEROL HFA 90 MCG/SPRAY INH PRN ×2 (08:09→19:32)
[2020-12-09] MEDS: POLYETHYLENE GLYCOL 17 GM PACKET PO SCH ×2 (08:10→20:06)
[2020-12-09] MEDS: SENNOSIDES 8.6 MG TABLET PO SCH ×2 (08:12→20:12)
[2020-12-09] MEDS: FLUTICASONE/VILANTEROL 100-25MCG/INH INH SCH (08:15)
[2020-12-09] MEDS: METHOCARBAMOL 750 MG TABLET PO PRN ×2 (08:19→15:56)
[2020-12-09] MEDS: ACETAMINOPHEN 325 MG TABLET PO PRN ×2 (08:19→15:55)
[2020-12-09] MEDS ORDERED: PROPOFOL 10 MG/ML, 20ML ONE (15:48)
[2020-12-09] MEDS: MELATONIN 5 MG TABLET PO SCH (20:08)
[2020-12-10] MEDS: OXYcodone IR 5MG TABLET PO PRN ×5 (00:11→23:39)
[2020-12-10 00:48] VITALS: BP 163/100
[2020-12-10] MEDS: ALBUTEROL HFA 90 MCG/SPRAY INH PRN ×6 (01:02→20:33)
[2020-12-10] MEDS: MORPHINE SULFATE 4 MG/ML, 1ML IVPush PRN ×4 (02:36→20:23)
[2020-12-10] MEDS: CEFAZOLIN PMX 2GM/50ML 50 ML IVPB SCH ×3 (02:37→20:20)
[2020-12-10] MEDS: METHOCARBAMOL 750 MG TABLET PO PRN ×3 (05:29→17:50)
[2020-12-10 05:36] LABS: BASOPHILS % (AUTO) 0 % (0-1); EOSINOPHILS % (AUTO) 1 % (1-7); LYMPHOCYTES % (AUTO) 12 % (22-44); MEAN CORPUSCULAR HEMOGLOBIN 27.6 pg (27.5-34.5); MEAN CORPUSCULAR HGB CONC 31.7 g/dL (33.2-36.2); MONOCYTES % (AUTO) 7 % (2-9); NEUTROPHILS % (AUTO) 80 % (42-75); PLATELET COUNT 291 x10^3/uL (130-400); RED BLOOD COUNT 2.79 x10^6/uL (4.38-5.82); RED CELL DISTRIBUTION WIDTH 19.5 % (9.4-14.8)
[2020-12-10 05:37] LABS: MD NO
[2020-12-10 05:42] LABS: ANION GAP 5 mmol/L (5-15); CALCIUM 8.9 mg/dL (8.5-10.1); CHLORIDE 99 mmol/L (98-107)
[2020-12-10 05:45] LABS: CREATININE 0.66 mg/dL (0.7-1.3)
[2020-12-10 06:33] VITALS: BP 146/88
[2020-12-10] MEDS: THIAMINE 100MG TABLET PO/NG SCH (08:42)
[2020-12-10] MEDS: PANTOPRAZOLE 40MG TABLET PO SCH ×2 (08:42→20:22)
[2020-12-10] MEDS: AMIODARONE 200 MG TABLET PO SCH ×2 (08:43→20:21)
[2020-12-10] MEDS: BUSPIRONE 5 MG TABLET PO SCH ×3 (08:43→20:22)
[2020-12-10] MEDS: METOPROLOL TARTRATE 25 MG TAB PO SCH ×2 (08:43→20:22)
[2020-12-10] MEDS: SENNOSIDES 8.6 MG TABLET PO SCH ×2 (08:43→20:51)
[2020-12-10] MEDS: GABAPENTIN 100 MG CAPSULE PO SCH ×3 (08:43→20:21)
[2020-12-10] MEDS: DILTIAZEM 240 MG CAP.ER.24H PO SCH (08:43)
[2020-12-10] MEDS: APIXABAN 5 MG TABLET PO SCH ×2 (08:43→20:21)
[2020-12-10] MEDS: FLUTICASONE/VILANTEROL 100-25MCG/INH INH SCH (08:44)
[2020-12-10] MEDS: TIOTROPIUM BROMIDE 18 MCG/INH INH SCH (08:51)
[2020-12-10] MEDS: POLYETHYLENE GLYCOL 17 GM PACKET PO SCH ×2 (08:51→20:51)
[2020-12-10 13:31] VITALS: BP 133/84
[2020-12-10 19:40] VITALS: BP 129/76
[2020-12-10] MEDS: MELATONIN 5 MG TABLET PO SCH (20:21)
[2020-12-10] MEDS: PICC FLUSH PROTOCOL XX SCH (20:59)
[2020-12-11 00:37] VITALS: BP 120/75
[2020-12-11] MEDS: CEFAZOLIN PMX 2GM/50ML 50 ML IVPB SCH ×3 (03:14→21:00)
[2020-12-11] MEDS: MORPHINE SULFATE 4 MG/ML, 1ML IVPush PRN ×4 (03:14→21:00)
[2020-12-11] MEDS: OXYcodone IR 5MG TABLET PO PRN ×3 (05:35→19:46)
[2020-12-11 06:13] LABS: BASOPHILS % (AUTO) 1 % (0-1); EOSINOPHILS % (AUTO) 0 % (1-7); LYMPHOCYTES % (AUTO) 12 % (22-44); MEAN CORPUSCULAR HEMOGLOBIN 27.7 pg (27.5-34.5); MEAN PLATELET VOLUME 8.1 fL (7.4-10.4); MONOCYTES % (AUTO) 8 % (2-9); NEUTROPHILS % (AUTO) 79 % (42-75); PLATELET COUNT 330 x10^3/uL (130-400); RED BLOOD COUNT 2.81 x10^6/uL (4.38-5.82); RED CELL DISTRIBUTION WIDTH 19.5 % (9.4-14.8)
[2020-12-11 06:19] LABS: ANION GAP 5 mmol/L (5-15); CALCIUM 8.9 mg/dL (8.5-10.1); CHLORIDE 96 mmol/L (98-107); CREATININE 0.66 mg/dL (0.7-1.3)
[2020-12-11 06:19] LABS: MD NO
[2020-12-11 06:57] VITALS: BP 122/84
[2020-12-11] MEDS ORDERED: MAGNESIUM SULFATE PMX 2GM/50ML 50 ML IV ONE (08:00)
[2020-12-11] MEDS: PICC FLUSH PROTOCOL XX SCH ×2 (09:00→21:00)
[2020-12-11] MEDS: POLYETHYLENE GLYCOL 17 GM PACKET PO SCH ×2 (09:04→22:32)
[2020-12-11] MEDS: AMIODARONE 200 MG TABLET PO SCH ×2 (09:04→22:32)
[2020-12-11] MEDS: PANTOPRAZOLE 40MG TABLET PO SCH ×2 (09:04→22:33)
[2020-12-11] MEDS: APIXABAN 5 MG TABLET PO SCH ×2 (09:04→22:32)
[2020-12-11] MEDS: THIAMINE 100MG TABLET PO/NG SCH (09:04)
[2020-12-11] MEDS: GABAPENTIN 100 MG CAPSULE PO SCH ×3 (09:04→22:33)
[2020-12-11] MEDS: SENNOSIDES 8.6 MG TABLET PO SCH ×2 (09:04→22:33)
[2020-12-11] MEDS: METOPROLOL TARTRATE 25 MG TAB PO SCH ×2 (09:04→22:32)
[2020-12-11] MEDS: MAGNESIUM CHLORIDE 64 MG TABLET.DR PO SCH (09:04)
[2020-12-11] MEDS: DILTIAZEM 240 MG CAP.ER.24H PO SCH (09:05)
[2020-12-11] MEDS: BUSPIRONE 5 MG TABLET PO SCH ×3 (09:05→22:32)
[2020-12-11] MEDS: FLUTICASONE/VILANTEROL 100-25MCG/INH INH SCH (09:05)
[2020-12-11] MEDS: TIOTROPIUM BROMIDE 18 MCG/INH INH SCH (09:05)
[2020-12-11] MEDS ORDERED: FUROSEMIDE 40 MG/4 ML IV ONE (10:30)
[2020-12-11] MEDS ORDERED: GABAPENTIN 100 MG CAPSULE PO PRN (10:30)
[2020-12-11] MEDS: METHOCARBAMOL 750 MG TABLET PO PRN (11:00)
[2020-12-11] MEDS: ACETAMINOPHEN 325 MG TABLET PO PRN ×2 (12:13→23:09)
[2020-12-11 12:25] VITALS: BP 150/92
[2020-12-11 20:21] VITALS: BP 168/96
[2020-12-11] MEDS: MELATONIN 5 MG TABLET PO SCH (22:32)
[2020-12-12 00:05] VITALS: BP 124/79
[2020-12-12] MEDS: OXYcodone IR 5MG TABLET PO PRN ×4 (00:16→19:15)
[2020-12-12] MEDS: CEFAZOLIN PMX 2GM/50ML 50 ML IVPB SCH ×3 (04:44→19:30)
[2020-12-12 06:21] VITALS: BP 119/78
[2020-12-12 06:38] LABS: ANION GAP 4 mmol/L (5-15); CALCIUM 8.7 mg/dL (8.5-10.1); CHLORIDE 93 mmol/L (98-107); CREATININE 0.61 mg/dL (0.7-1.3)
[2020-12-12 07:17] LABS: MEAN CORPUSCULAR HEMOGLOBIN 28.1 pg (27.5-34.5); MEAN CORPUSCULAR HGB CONC 32.5 g/dL (33.2-36.2); MEAN PLATELET VOLUME 7.3 fL (7.4-10.4); PLATELET COUNT 348 x10^3/uL (130-400); RED CELL DISTRIBUTION WIDTH 19.8 % (9.4-14.8)
[2020-12-12] MEDS: TIOTROPIUM BROMIDE 18 MCG/INH INH SCH (07:38)
[2020-12-12] MEDS: THIAMINE 100MG TABLET PO/NG SCH (07:38)
[2020-12-12] MEDS: ACETAMINOPHEN 325 MG TABLET PO PRN ×2 (07:38→14:10)
[2020-12-12] MEDS: GABAPENTIN 100 MG CAPSULE PO SCH (07:39)
[2020-12-12] MEDS: AMIODARONE 200 MG TABLET PO SCH (07:39)
[2020-12-12] MEDS: DILTIAZEM 240 MG CAP.ER.24H PO SCH (07:40)
[2020-12-12] MEDS: METOPROLOL TARTRATE 25 MG TAB PO SCH ×2 (07:40→20:26)
[2020-12-12] MEDS: APIXABAN 5 MG TABLET PO SCH ×2 (07:40→20:26)
[2020-12-12] MEDS: PANTOPRAZOLE 40MG TABLET PO SCH ×2 (07:40→20:26)
[2020-12-12] MEDS: FLUTICASONE/VILANTEROL 100-25MCG/INH INH SCH (07:41)
[2020-12-12] MEDS: BUSPIRONE 5 MG TABLET PO SCH ×3 (07:41→20:26)
[2020-12-12] MEDS: MAGNESIUM CHLORIDE 64 MG TABLET.DR PO SCH (07:41)
[2020-12-12] MEDS: POLYETHYLENE GLYCOL 17 GM PACKET PO SCH ×2 (07:41→20:26)
[2020-12-12] MEDS: SENNOSIDES 8.6 MG TABLET PO SCH ×2 (07:42→20:26)
[2020-12-12 07:45] LABS: MD YES
[2020-12-12 07:47] LABS: BANDS%(MANUAL) 3 % (0-7); EOS% (MANUAL) 2 % (1-7); LYMPH#(MANUAL) 1.31 x10^3/uL (1-3.4); LYMPHS% (MANUAL) 13 % (22-44); METAMYELOCYTES% (MANUAL) 1 % (0-1); MONOS% (MANUAL) 3 % (2-9); MYELOCYTES% (MANUAL) 2 % (0-0); SEG#(MANUAL) 7.68 x10^3/uL (1.8-6.8); SEGS% (MANUAL) 76 % (42-75)
[2020-12-12 07:48] LABS: <PLATELET ESTIMATE> ADEQUATE; <PLT MORPHOLOGY> NORMAL PLT MORPH; ANISOCYTOSIS 1+; HYPOCHROMIA 1+; POLYCHROMASIA 1+
[2020-12-12] MEDS: METHOCARBAMOL 750 MG TABLET PO PRN ×3 (07:55→22:30)
[2020-12-12] MEDS: PICC FLUSH PROTOCOL XX SCH ×2 (08:39→20:27)
[2020-12-12] MEDS ORDERED: MAGNESIUM SULFATE PMX 2GM/50ML 50 ML IV ONE (09:00)
[2020-12-12] MEDS: GABAPENTIN 300 MG CAPSULE PO SCH ×3 (09:35→20:26)
[2020-12-12] MEDS: ALBUTEROL HFA 90 MCG/SPRAY INH PRN ×2 (11:09→22:04)
[2020-12-12] MEDS ORDERED: MORPHINE SULFATE 4 MG/ML, 1ML IVPush PRN (12:30)
[2020-12-12] MEDS ORDERED: FENTANYL 12 MCG PATCH TD SCH (12:30)
[2020-12-12 14:01] VITALS: BP 112/73
[2020-12-12 18:43] VITALS: BP 120/81
[2020-12-12] MEDS: MELATONIN 5 MG TABLET PO SCH (20:26)
[2020-12-13] MEDS: OXYcodone IR 5MG TABLET PO PRN ×4 (00:41→21:39)
[2020-12-13 00:45] VITALS: BP 131/85
[2020-12-13] MEDS: ALBUTEROL HFA 90 MCG/SPRAY INH PRN ×3 (03:44→19:08)
[2020-12-13] MEDS: CEFAZOLIN PMX 2GM/50ML 50 ML IVPB SCH ×3 (04:45→20:26)
[2020-12-13 06:40] LABS: BASOPHILS % (AUTO) 1 % (0-1); EOSINOPHILS % (AUTO) 1 % (1-7); LYMPHOCYTES % (AUTO) 14 % (22-44); MEAN CORPUSCULAR HEMOGLOBIN 28.3 pg (27.5-34.5); MEAN CORPUSCULAR HGB CONC 32.8 g/dL (33.2-36.2); MEAN PLATELET VOLUME 7.4 fL (7.4-10.4); MONOCYTES % (AUTO) 9 % (2-9); NEUTROPHILS % (AUTO) 75 % (42-75); PLATELET COUNT 327 x10^3/uL (130-400); RED BLOOD COUNT 2.58 x10^6/uL (4.38-5.82); RED CELL DISTRIBUTION WIDTH 19.5 % (9.4-14.8)
[2020-12-13 06:42] LABS: MD NO
[2020-12-13 06:43] LABS: HCT (SEDRATE) 22.3 % (39.2-51.8)
[2020-12-13 06:50] LABS: ANION GAP 4 mmol/L (5-15); CALCIUM 8.6 mg/dL (8.5-10.1); CHLORIDE 96 mmol/L (98-107); CREATININE 0.58 mg/dL (0.7-1.3)
[2020-12-13 07:09] VITALS: BP 128/79
[2020-12-13] MEDS: METOPROLOL TARTRATE 25 MG TAB PO SCH ×2 (08:42→20:27)
[2020-12-13] MEDS: GABAPENTIN 300 MG CAPSULE PO SCH ×3 (08:42→20:28)
[2020-12-13] MEDS: APIXABAN 5 MG TABLET PO SCH ×2 (08:42→20:26)
[2020-12-13] MEDS: MAGNESIUM CHLORIDE 64 MG TABLET.DR PO SCH (08:42)
[2020-12-13] MEDS: BUSPIRONE 5 MG TABLET PO SCH ×3 (08:42→20:27)
[2020-12-13] MEDS: POLYETHYLENE GLYCOL 17 GM PACKET PO SCH ×2 (08:42→20:30)
[2020-12-13] MEDS: PANTOPRAZOLE 40MG TABLET PO SCH ×2 (08:43→20:27)
[2020-12-13] MEDS: THIAMINE 100MG TABLET PO/NG SCH (08:43)
[2020-12-13] MEDS: DILTIAZEM 240 MG CAP.ER.24H PO SCH (08:43)
[2020-12-13] MEDS: TIOTROPIUM BROMIDE 18 MCG/INH INH SCH (08:43)
[2020-12-13] MEDS: FLUTICASONE/VILANTEROL 100-25MCG/INH INH SCH (08:43)
[2020-12-13] MEDS: SENNOSIDES 8.6 MG TABLET PO SCH ×2 (08:52→20:28)
[2020-12-13] MEDS: PICC FLUSH PROTOCOL XX SCH ×2 (08:52→21:00)
[2020-12-13] MEDS: MAGNESIUM OXIDE 400 MG TABLET PO SCH ×2 (09:01→20:27)
[2020-12-13] MEDS: METHOCARBAMOL 750 MG TABLET PO PRN ×2 (11:02→21:39)
[2020-12-13] MEDS: ACETAMINOPHEN 325 MG TABLET PO PRN (11:02)
[2020-12-13] MEDS ORDERED: FUROSEMIDE 40 MG/4 ML IV ONE (12:30)
[2020-12-13] MEDS ORDERED: POTASSIUM CHLORIDE 20 MEQ TAB.ER.PRT PO ONE (12:30)
[2020-12-13 12:48] VITALS: BP 100/72
[2020-12-13 16:45] LABS: OCCULT BLOOD POSITIVE (NEGATIVE)
[2020-12-13 19:21] VITALS: BP 133/88
[2020-12-13 20:23] VITALS: BP 136/82
[2020-12-13] MEDS: MELATONIN 5 MG TABLET PO SCH (20:26)
[2020-12-13] MEDS ORDERED: PANT40TA6 PO (22:15)
[2020-12-13] MEDS ORDERED: FENT1PAT74 TD (22:15)
[2020-12-13] MEDS ORDERED: DILT240C55 PO (22:15)
[2020-12-13] MEDS ORDERED: BUSP5TAB2 PO (22:15)
[2020-12-13] MEDS ORDERED: OXYC5TAB98 PO (22:15)
[2020-12-13] MEDS ORDERED: BISA10SU4 PR (22:15)
[2020-12-13] MEDS ORDERED: MAGN400T50 PO (22:15)
[2020-12-13] MEDS ORDERED: METO25TA35 PO (22:15)
[2020-12-13] MEDS ORDERED: GABA300C PO (22:15)
[2020-12-13] MEDS ORDERED: CEFA2PLA9 IV (22:15)
[2020-12-13] MEDS ORDERED: MELA5TAB14 PO (22:15)
[2020-12-13] MEDS ORDERED: ALPR0.5T93 PO (22:15)
[2020-12-13] MEDS ORDERED: ACET325T26 PO (22:15)
[2020-12-13] MEDS ORDERED: PRED10TA PO (22:15)
[2020-12-13] MEDS ORDERED: POLY17PO5 PO (22:15)
[2020-12-13] MEDS ORDERED: THIA100T67 PO/NG (22:15)
[2020-12-13] MEDS ORDERED: SENN-99 PO (22:15)
[2020-12-14 00:34] VITALS: BP 122/73
[2020-12-14] MEDS: OXYcodone IR 5MG TABLET PO PRN ×3 (02:12→12:34)
[2020-12-14] MEDS: ALBUTEROL HFA 90 MCG/SPRAY INH PRN ×3 (02:13→14:33)
[2020-12-14] MEDS: CEFAZOLIN PMX 2GM/50ML 50 ML IVPB SCH ×2 (04:51→12:34)
[2020-12-14] MEDS: ACETAMINOPHEN 325 MG TABLET PO PRN ×3 (04:51→14:31)
[2020-12-14 05:32] LABS: ANION GAP 4 mmol/L (5-15); CALCIUM 8.3 mg/dL (8.5-10.1); CHLORIDE 97 mmol/L (98-107); CREATININE 0.57 mg/dL (0.7-1.3)
[2020-12-14 06:20] LABS: BASOPHILS % (AUTO) 1 % (0-1); EOSINOPHILS % (AUTO) 1 % (1-7); LYMPHOCYTES % (AUTO) 16 % (22-44); MEAN PLATELET VOLUME 7.3 fL (7.4-10.4); MONOCYTES % (AUTO) 15 % (2-9); NEUTROPHILS % (AUTO) 66 % (42-75); PLATELET COUNT 339 x10^3/uL (130-400); RED BLOOD COUNT 2.87 x10^6/uL (4.38-5.82); RED CELL DISTRIBUTION WIDTH 19.5 % (9.4-14.8)
[2020-12-14 06:30] VITALS: BP 110/73
[2020-12-14 06:42] LABS: MD SCAN
[2020-12-14] MEDS: METHOCARBAMOL 750 MG TABLET PO PRN ×3 (07:55→14:31)
[2020-12-14] MEDS: BUSPIRONE 5 MG TABLET PO SCH ×2 (07:55→14:31)
[2020-12-14] MEDS: DILTIAZEM 240 MG CAP.ER.24H PO SCH (07:55)
[2020-12-14] MEDS: THIAMINE 100MG TABLET PO/NG SCH (07:56)
[2020-12-14] MEDS: APIXABAN 5 MG TABLET PO SCH (07:56)
[2020-12-14] MEDS: PANTOPRAZOLE 40MG TABLET PO SCH (07:56)
[2020-12-14] MEDS: METOPROLOL TARTRATE 25 MG TAB PO SCH (07:56)
[2020-12-14] MEDS: FLUTICASONE/VILANTEROL 100-25MCG/INH INH SCH (07:57)
[2020-12-14] MEDS: MAGNESIUM OXIDE 400 MG TABLET PO SCH (07:57)
[2020-12-14] MEDS: TIOTROPIUM BROMIDE 18 MCG/INH INH SCH (07:57)
[2020-12-14] MEDS: POLYETHYLENE GLYCOL 17 GM PACKET PO SCH (07:57)
[2020-12-14] MEDS: GABAPENTIN 300 MG CAPSULE PO SCH ×2 (07:57→14:31)
[2020-12-14] MEDS: SENNOSIDES 8.6 MG TABLET PO SCH (07:59)
[2020-12-14] MEDS ORDERED: MAGNESIUM SULFATE PMX 2GM/50ML 50 ML IV ONE ×2 (09:00→10:30)
[2020-12-14] MEDS: PICC FLUSH PROTOCOL XX SCH (09:00)
[2020-12-14] MEDS ORDERED: FUROSEMIDE 40 MG/4 ML IV ONE (10:30)
[2020-12-14] MEDS ORDERED: POTASSIUM CHLORIDE 20 MEQ TAB.ER.PRT PO ONE (10:30)
[2020-12-14] MEDS ORDERED: SPIR25TA PO (10:38)
[2020-12-14] MEDS ORDERED: FURO40TA6 PO (10:38)
[2020-12-14 12:23] VITALS: BP 110/74
[2020-12-15] MEDS ORDERED: SPIRONOLACTONE 25 MG TABLET PO SCH (09:00)
[2020-12-15] MEDS ORDERED: FUROSEMIDE 40 MG TABLET PO SCH (09:00)
[2020-12-15] MEDS ORDERED: FENTANYL REMOVE PATCH NOTE XX SCH (12:30)
== END 2020-12-14 16:20 | DRG 871 ==
LOC: ED 23:13 → EDIP 11-20 00:28 → 3N 11-20 01:23 → 4WST 11-29 11:11 → CCU 11-29 12:25 → 4EST 12-03 12:38
PROVIDERS: ADMIT Family Medicine; ATTEND Internal Medicine
PROC: 5A09357 Assistance with Respiratory Ventilation, Less than 24 Consecutive Hours, Continuous Positive Airway Pressure (ICD-10-PCS; principal; 2020-11-29)
PROC: 5A09457 Assistance with Respiratory Ventilation, 24-96 Consecutive Hours, Continuous Positive Airway Pressure (ICD-10-PCS; 2020-12-02)
PROC: 02HV33Z Insertion of Infusion Device into Superior Vena Cava, Percutaneous Approach (ICD-10-PCS; 2020-12-10)
PROC: B5181ZA Fluoroscopy of Superior Vena Cava using Low Osmolar Contrast, Guidance (ICD-10-PCS; 2020-12-10)
PROC: B548ZZA Ultrasonography of Superior Vena Cava, Guidance (ICD-10-PCS; 2020-12-10)
DX: A41.01 Sepsis due to Methicillin susceptible Staphylococcus aureus (principal); J96.22 Acute and chronic respiratory failure with hypercapnia; J96.21 Acute and chronic respiratory failure with hypoxia; J86.9 Pyothorax without fistula; D68.69 Other thrombophilia; L97.929 Non-pressure chronic ulcer of unspecified part of left lower leg with unspecified severity; M48.54XA Collapsed vertebra, not elsewhere classified, thoracic region, initial encounter for fracture; D64.9 Anemia, unspecified; D69.6 Thrombocytopenia, unspecified; E78.5 Hyperlipidemia, unspecified; E87.5 Hyperkalemia; G89.29 Other chronic pain; I11.0 Hypertensive heart disease with heart failure; K05.6 Periodontal disease, unspecified; K29.60 Other gastritis without bleeding; M54.16 Radiculopathy, lumbar region; T38.0X5A Adverse effect of glucocorticoids and synthetic analogues, initial encounter; Y92.89 Other specified places as the place of occurrence of the external cause; Z91.013 Allergy to seafood; Z91.018 Allergy to other foods; Z20.822 Contact with and (suspected) exposure to COVID-19; Z53.20 Procedure and treatment not carried out because of patient's decision for unspecified reasons; Z59.0 Homelessness; Z86.16 Personal history of COVID-19; Z86.718 Personal history of other venous thrombosis and embolism; Z87.01 Personal history of pneumonia (recurrent); Z91.14 Patient's other noncompliance with medication regimen; Z99.81 Dependence on supplemental oxygen; Z79.01 Long term (current) use of anticoagulants; M81.0 Age-related osteoporosis without current pathological fracture; M51.34 Other intervertebral disc degeneration, thoracic region; J98.4 Other disorders of lung; J43.9 Emphysema, unspecified; I48.0 Paroxysmal atrial fibrillation; F17.210 Nicotine dependence, cigarettes, uncomplicated; F10.20 Alcohol dependence, uncomplicated; I27.81 Cor pulmonale (chronic); I50.9 Heart failure, unspecified
CPT/HCPCS: 36415; 36600; 73590; 73610; 84145; 96374; 96375; 96376; 99285; A9575; J7613; 36573; 71045; 71046; 71275; 72157; 72158; 80048; 80053; 80202; 80307; 80320; 81001; 82272; 82330; 82803; 82962; 83605; 83735; 83880; 84100; 84484; 85025; 85651; 86140; 87040; 87070; 87077; 87081; 87086; 87147; 87186; 87205; 87324; 87635; 93005; 93306; 93312; 93325; 94640; 94660; G0378; J0456; J0690; J0696; J1885; J1940; J2704; J3360; J3370; J3475; J7060; P9047; Q9967; C1751; G0480; J0282; J0360; J2270; J2920; J2930; J7030; J7040; J7050; J7512

== ENCOUNTER 2020-12-15 02:49 | Emergency (ER) | payer MEDICAID ==
[~2020-12-15] VITALS: Ht 190.5 cm; Wt 82.0 kg
[2020-12-15 02:49] VITALS: BP 147/77
[~2020-12-15 02:49] MED LIST changes: +ACET325T26 PO; +ALPR0.5T93 PO; +BISA10SU4 PR; +BUSP5TAB2 PO; +CEFA2PLA9 IV; +DILT240C55 PO; +FENT1PAT74 TD; +GABA300C PO; +MAGN400T50 PO; +MELA5TAB14 PO; +METO25TA35 PO; +OXYC5TAB98 PO; +PANT40TA6 PO; +POLY17PO5 PO; +SENN-99 PO; +SPIR25TA PO; +THIA100T67 PO/NG
--- NOTE | 2020-12-15 02:49 | NUR ---
INITIAL PT CONTACT. AGUSTINA FROM [facility] FOR "SEVERE BACK PAIN AND SOME SOB". PT ON 3L O2 VIA NASAL CANNULA BASELINE. PER EMS, FACILITY CANNOT GIVE NARCOTIC PAIN MEDICATION, EMS THEN CALLED. 100MCG OF FENTAYL, DUO NEB AND ALBUTEROL GIVEN IN FIELD, MINIMAL RELIEF. PT RECENTLY D/C FROM HOSPITAL FOLLOWING ADMISSION, PT SENT TO [facility] TODAY. PT SITTING UPRIGHT ON GURNEY, NADN, VSS. CALL LIGHT AND PERSONAL BELONGINGS WITHIN REACH.
--- NOTE | 2020-12-15 03:03 | NUR ---
ERP AT BEDSIDE
[2020-12-15] MEDS ORDERED: OxyconTIN ER 15 MG TAB.ER PO ONE (03:30)
[2020-12-15] MEDS ORDERED: morphine SULFATE 10 MG/ML, 1ML IVPush ONE (03:30)
--- NOTE | 2020-12-15 04:31 | NUR ---
REPORT TO ALEXANDRA AT [facility].
== END 2020-12-15 04:33 | disposition home or self-care (01) ==
LOC: ED 04:10
DX: G89.29 Other chronic pain (principal); M54.5 Low back pain; M54.6 Pain in thoracic spine; I11.0 Hypertensive heart disease with heart failure; I50.9 Heart failure, unspecified; E11.9 Type 2 diabetes mellitus without complications; J43.9 Emphysema, unspecified; I48.91 Unspecified atrial fibrillation; Z86.718 Personal history of other venous thrombosis and embolism; Z90.49 Acquired absence of other specified parts of digestive tract
CPT/HCPCS: 99283

== ENCOUNTER 2020-12-16 10:46 | Inpatient (IN) | payer MEDICAID ==
[2020-12-16] VITALS (12 sets, daily range): BP systolic 101–131; BP diastolic 65–87
[~2020-12-16] VITALS: Ht 190.5 cm; Wt 83.9 kg
[2020-12-16] MEDS ORDERED: SODIUM CHLORIDE 0.9% 1,000ML IVBOLUS ONE ×2 (11:00→12:00)
[2020-12-16] MEDS ORDERED: SODIUM CHLORIDE FLUSH 10ML SYR IVF ONE (11:00)
[2020-12-16 11:28] LABS: BASOPHILS % (AUTO) 1 % (0-1); EOSINOPHILS % (AUTO) 0 % (1-7); LYMPHOCYTES % (AUTO) 9 % (22-44); MEAN CORPUSCULAR HEMOGLOBIN 27.9 pg (27.5-34.5); MEAN CORPUSCULAR HGB CONC 32.3 g/dL (33.2-36.2); MEAN PLATELET VOLUME 7.2 fL (7.4-10.4); MONOCYTES % (AUTO) 7 % (2-9); NEUTROPHILS % (AUTO) 83 % (42-75); PLATELET COUNT 286 x10^3/uL (130-400); RED BLOOD COUNT 2.49 x10^6/uL (4.38-5.82); RED CELL DISTRIBUTION WIDTH 19.7 % (9.4-14.8)
[2020-12-16 11:39] LABS: ALANINE AMINOTRANSFERASE 11 U/L (12-78); ALBUMIN 2.2 g/dL (3.4-5.0); CHLORIDE 94 mmol/L (98-107); CREATININE 0.91 mg/dL (0.7-1.3)
[2020-12-16 11:44] LABS: ALKALINE PHOSPHATASE 109 U/L (45-117); BILIRUBIN,TOTAL 0.4 mg/dL (0.2-1.0); TOTAL PROTEIN 6.4 g/dL (6.4-8.2); TROPONIN I < 0.015 ng/mL (0.000-0.045)
[2020-12-16 11:47] LABS: ANION GAP 3 mmol/L (5-15)
[2020-12-16 11:55] LABS: MD SCAN
[2020-12-16] MEDS ORDERED: OMNIPAQUE 350 MG/ML, 75ML BOTTLE ONE (13:37)
[2020-12-16] MEDS ORDERED: ACETAMINOPHEN 325 MG TABLET PO PRN ×2 (16:00)
[2020-12-16] MEDS ORDERED: POLYETHYLENE GLYCOL 17 GM PACKET PO PRN (16:00)
[2020-12-16] MEDS ORDERED: HEPARIN 5,000 UNITS/ML, 1ML SQ SCH (16:00)
[2020-12-16] MEDS ORDERED: ONDANSETRON 2MG/ML, 2ML IVPush PRN (16:00)
[2020-12-16] MEDS ORDERED: FENTANYL 12 MCG PATCH TD SCH (16:00)
[2020-12-16] MEDS ORDERED: ONDANSETRON ODT 4 MG PO PRN (16:00)
[2020-12-16] MEDS ORDERED: BISACODYL 10 MG SUPP PR PRN ×2 (16:00)
[2020-12-16] MEDS ORDERED: CEFAZOLIN 2,000 MG in SODIUM CHLORIDE 0.9% 50 ML IV SCH (17:00)
[2020-12-16] MEDS: BUSPIRONE 5 MG TABLET PO SCH ×2 (18:17→20:55)
[2020-12-16] MEDS: CEFAZOLIN PMX 2GM/50ML 50 ML IVPB SCH (18:31)
[2020-12-16] MEDS: ALBUTEROL HFA 90 MCG/SPRAY INH PRN ×2 (18:31→21:55)
[2020-12-16] MEDS: MAGNESIUM OXIDE 400 MG TABLET PO SCH (20:55)
[2020-12-16] MEDS: PANTOPRAZOLE 40MG TABLET PO SCH (20:55)
[2020-12-16] MEDS: APIXABAN 5 MG TABLET PO SCH (20:55)
[2020-12-16] MEDS: SPIRONOLACTONE 25 MG TABLET PO SCH (20:55)
[2020-12-16] MEDS: METOPROLOL TARTRATE 25 MG TAB PO SCH (20:55)
[2020-12-16] MEDS: POLYETHYLENE GLYCOL 17 GM PACKET PO SCH (20:57)
[2020-12-16] MEDS ORDERED: SENNOSIDES 8.6 MG TABLET PO SCH (21:00)
[2020-12-16] MEDS: OXYcodone IR 5MG TABLET PO PRN (21:56)
[2020-12-16 22:14] LABS: MICROSCOPIC AUTO
[2020-12-17 01:46] VITALS: BP 122/78
[2020-12-17] MEDS: ALBUTEROL HFA 90 MCG/SPRAY INH PRN ×2 (02:28→11:15)
[2020-12-17] MEDS: CEFAZOLIN PMX 2GM/50ML 50 ML IVPB SCH ×3 (02:28→18:35)
[2020-12-17 03:25] LABS: OCCULT BLOOD POSITIVE (NEGATIVE)
[2020-12-17 04:59] LABS: BASOPHILS % (AUTO) 1 % (0-1); EOSINOPHILS % (AUTO) 1 % (1-7); LYMPHOCYTES % (AUTO) 11 % (22-44); MEAN CORPUSCULAR HEMOGLOBIN 28.2 pg (27.5-34.5); MEAN CORPUSCULAR HGB CONC 33.1 g/dL (33.2-36.2); MEAN PLATELET VOLUME 6.9 fL (7.4-10.4); MONOCYTES % (AUTO) 13 % (2-9); NEUTROPHILS % (AUTO) 75 % (42-75); PLATELET COUNT 253 x10^3/uL (130-400); RED BLOOD COUNT 3.05 x10^6/uL (4.38-5.82); RED CELL DISTRIBUTION WIDTH 18.3 % (9.4-14.8)
[2020-12-17 05:01] LABS: MD NO
[2020-12-17 05:05] LABS: ALBUMIN 2.1 g/dL (3.4-5.0); ANION GAP 3 mmol/L (5-15); CALCIUM 8.2 mg/dL (8.5-10.1); CHLORIDE 97 mmol/L (98-107)
[2020-12-17 05:30] LABS: % IRON SATURATION 26 % (20-55); ALANINE AMINOTRANSFERASE 11 U/L (12-78); ALKALINE PHOSPHATASE 102 U/L (45-117); BILIRUBIN,TOTAL 0.3 mg/dL (0.2-1.0); CREATININE 0.62 mg/dL (0.7-1.3); IRON LEVEL 52 mcg/dL (65-175); TOTAL IRON BINDING CAPACITY 203 mcg/dL (250-450); TOTAL PROTEIN 6.5 g/dL (6.4-8.2)
[2020-12-17 07:13] VITALS: BP 135/77
[2020-12-17] MEDS: MAGNESIUM OXIDE 400 MG TABLET PO SCH ×2 (08:52→20:50)
[2020-12-17] MEDS: SENNA/DOCUSATE TABLET PO SCH ×2 (08:52→09:00)
[2020-12-17] MEDS: THIAMINE 100MG TABLET PO/NG SCH ×2 (08:52→10:43)
[2020-12-17] MEDS: SPIRONOLACTONE 25 MG TABLET PO SCH ×2 (08:52→20:50)
[2020-12-17] MEDS: APIXABAN 5 MG TABLET PO SCH ×2 (08:53→20:50)
[2020-12-17] MEDS: PANTOPRAZOLE 40MG TABLET PO SCH ×2 (08:53→20:50)
[2020-12-17] MEDS: DILTIAZEM 240 MG CAP.ER.24H PO SCH (08:53)
[2020-12-17] MEDS: METOPROLOL TARTRATE 25 MG TAB PO SCH ×2 (08:54→20:50)
[2020-12-17] MEDS: BUSPIRONE 5 MG TABLET PO SCH ×3 (08:54→20:50)
[2020-12-17] MEDS: POLYETHYLENE GLYCOL 17 GM PACKET PO SCH ×2 (09:00→21:00)
[2020-12-17] MEDS: ALBUTEROL-IPRATROPIUM MDI INH INH SCH ×3 (09:00→19:45)
[2020-12-17] MEDS: TIOTROPIUM BROMIDE 18 MCG/INH INH SCH ×2 (09:00→11:17)
[2020-12-17] MEDS: FLUTICASONE/VILANTEROL 100-25MCG/INH INH SCH ×2 (09:00→11:17)
[2020-12-17] MEDS: OXYcodone IR 5MG TABLET PO PRN ×3 (10:40→20:51)
[2020-12-17] MEDS: FUROSEMIDE 40 MG TABLET PO SCH (10:43)
[2020-12-17 12:00] VITALS: BP 135/66
[2020-12-17] MEDS: LACTULOSE 10 GM/15 ML UDC PO SCH ×3 (12:03→20:52)
[2020-12-17 19:56] VITALS: BP 138/88
[2020-12-18 02:15] VITALS: BP 136/76
[2020-12-18] MEDS: CEFAZOLIN PMX 2GM/50ML 50 ML IVPB SCH ×3 (02:37→18:29)
[2020-12-18] MEDS: ALBUTEROL-IPRATROPIUM MDI INH INH SCH ×4 (03:40→19:58)
[2020-12-18] MEDS: OXYcodone IR 5MG TABLET PO PRN ×4 (04:02→18:33)
[2020-12-18 06:05] LABS: BASOPHILS % (AUTO) 1 % (0-1); EOSINOPHILS % (AUTO) 1 % (1-7); LYMPHOCYTES % (AUTO) 15 % (22-44); MEAN CORPUSCULAR HGB CONC 32.6 g/dL (33.2-36.2); MEAN PLATELET VOLUME 6.9 fL (7.4-10.4); MONOCYTES % (AUTO) 14 % (2-9); NEUTROPHILS % (AUTO) 69 % (42-75); PLATELET COUNT 231 x10^3/uL (130-400); RED BLOOD COUNT 2.95 x10^6/uL (4.38-5.82); RED CELL DISTRIBUTION WIDTH 18.5 % (9.4-14.8)
[2020-12-18 06:09] LABS: MD NO
[2020-12-18 06:15] LABS: ANION GAP 2 mmol/L (5-15); CALCIUM 8.2 mg/dL (8.5-10.1); CHLORIDE 97 mmol/L (98-107); CREATININE 0.51 mg/dL (0.7-1.3)
[2020-12-18 07:14] VITALS: BP 138/88
[2020-12-18] MEDS: PANTOPRAZOLE 40MG TABLET PO SCH ×2 (08:25→20:21)
[2020-12-18] MEDS: SPIRONOLACTONE 25 MG TABLET PO SCH ×2 (08:25→20:21)
[2020-12-18] MEDS: DILTIAZEM 240 MG CAP.ER.24H PO SCH (08:25)
[2020-12-18] MEDS: FUROSEMIDE 40 MG TABLET PO SCH (08:26)
[2020-12-18] MEDS: BUSPIRONE 5 MG TABLET PO SCH ×3 (08:26→20:22)
[2020-12-18] MEDS: THIAMINE 100MG TABLET PO/NG SCH (08:26)
[2020-12-18] MEDS: METOPROLOL TARTRATE 25 MG TAB PO SCH ×2 (08:26→20:21)
[2020-12-18] MEDS: APIXABAN 5 MG TABLET PO SCH ×2 (08:26→20:21)
[2020-12-18] MEDS: MAGNESIUM OXIDE 400 MG TABLET PO SCH ×2 (08:26→20:21)
[2020-12-18] MEDS: LACTULOSE 10 GM/15 ML UDC PO SCH ×4 (08:26→20:24)
[2020-12-18] MEDS: POLYETHYLENE GLYCOL 17 GM PACKET PO SCH ×2 (08:28→20:24)
[2020-12-18] MEDS: SENNA/DOCUSATE TABLET PO SCH (08:28)
[2020-12-18 12:55] VITALS: BP 132/80
[2020-12-18 18:25] VITALS: BP 126/75
[2020-12-18 20:24] VITALS: BP 116/83
[2020-12-19] MEDS: OXYcodone IR 5MG TABLET PO PRN ×3 (00:24→15:13)
[2020-12-19 00:25] VITALS: BP 114/78
[2020-12-19] MEDS: ALBUTEROL-IPRATROPIUM MDI INH INH SCH ×4 (02:19→20:20)
[2020-12-19] MEDS: CEFAZOLIN PMX 2GM/50ML 50 ML IVPB SCH ×3 (02:35→18:27)
[2020-12-19 05:09] LABS: MEAN CORPUSCULAR HEMOGLOBIN 28.4 pg (27.5-34.5); MEAN PLATELET VOLUME 7.2 fL (7.4-10.4); PLATELET COUNT 261 x10^3/uL (130-400); RED BLOOD COUNT 3.06 x10^6/uL (4.38-5.82); RED CELL DISTRIBUTION WIDTH 18.9 % (9.4-14.8)
[2020-12-19 05:11] LABS: ALANINE AMINOTRANSFERASE 7 U/L (12-78); ALBUMIN 2.1 g/dL (3.4-5.0); ANION GAP 2 mmol/L (5-15); CALCIUM 8.5 mg/dL (8.5-10.1); CHLORIDE 96 mmol/L (98-107); CREATININE 0.63 mg/dL (0.7-1.3)
[2020-12-19 05:14] LABS: ALKALINE PHOSPHATASE 95 U/L (45-117); BILIRUBIN,TOTAL 0.2 mg/dL (0.2-1.0); TOTAL PROTEIN 6.4 g/dL (6.4-8.2)
[2020-12-19 06:01] LABS: MD YES
[2020-12-19 06:03] LABS: ANISOCYTOSIS 1+; BAND#(MANUAL) 0.06 x10^3/uL; BANDS%(MANUAL) 1 % (0-7); EOS#(MANUAL) 0.06 x10^3/uL (0.0-0.4); EOS% (MANUAL) 1 % (1-7); LYMPH#(MANUAL) 1.44 x10^3/uL (1-3.4); LYMPHS% (MANUAL) 24 % (22-44); MONOS#(MANUAL) 0.78 x10^3/uL (0.3-2.7); MONOS% (MANUAL) 13 % (2-9); SEG#(MANUAL) 3.66 x10^3/uL (1.8-6.8); SEGS% (MANUAL) 61 % (42-75)
[2020-12-19 06:04] LABS: POLYCHROMASIA 1+
[2020-12-19 06:05] LABS: <PLATELET ESTIMATE> ADEQUATE; <PLT MORPHOLOGY> NORMAL PLT MORPH
[2020-12-19 06:25] VITALS: BP 118/73
[2020-12-19] MEDS: FLUTICASONE/VILANTEROL 100-25MCG/INH INH SCH (08:15)
[2020-12-19 08:36] VITALS: BP 126/74
[2020-12-19] MEDS: THIAMINE 100MG TABLET PO/NG SCH (08:56)
[2020-12-19] MEDS: MAGNESIUM OXIDE 400 MG TABLET PO SCH ×2 (08:57→22:04)
[2020-12-19] MEDS: SPIRONOLACTONE 25 MG TABLET PO SCH ×2 (08:57→22:04)
[2020-12-19] MEDS: FUROSEMIDE 40 MG TABLET PO SCH (08:57)
[2020-12-19] MEDS: METOPROLOL TARTRATE 25 MG TAB PO SCH ×2 (08:57→22:03)
[2020-12-19] MEDS: PANTOPRAZOLE 40MG TABLET PO SCH ×2 (08:57→22:03)
[2020-12-19] MEDS: DILTIAZEM 240 MG CAP.ER.24H PO SCH (08:57)
[2020-12-19] MEDS: BUSPIRONE 5 MG TABLET PO SCH ×3 (08:57→22:04)
[2020-12-19] MEDS: APIXABAN 5 MG TABLET PO SCH ×2 (08:57→22:04)
[2020-12-19] MEDS: LACTULOSE 10 GM/15 ML UDC PO SCH ×3 (08:58→22:04)
[2020-12-19] MEDS: POLYETHYLENE GLYCOL 17 GM PACKET PO SCH ×2 (08:58→22:05)
[2020-12-19] MEDS: SENNA/DOCUSATE TABLET PO SCH (08:58)
[2020-12-19] MEDS: TIOTROPIUM BROMIDE 18 MCG/INH INH SCH (09:00)
[2020-12-19 12:22] VITALS: BP 124/58
[2020-12-19 18:34] VITALS: BP 116/73
[2020-12-19 20:12] LABS: OCCULT BLOOD POSITIVE (NEGATIVE)
[2020-12-20 01:02] VITALS: BP 123/76
[2020-12-20] MEDS: OXYcodone IR 5MG TABLET PO PRN ×3 (01:34→17:44)
[2020-12-20] MEDS: CEFAZOLIN PMX 2GM/50ML 50 ML IVPB SCH ×3 (02:12→17:37)
[2020-12-20] MEDS: ALBUTEROL-IPRATROPIUM MDI INH INH SCH ×4 (02:15→20:57)
[2020-12-20 05:44] LABS: BASOPHILS % (AUTO) 1 % (0-1); EOSINOPHILS % (AUTO) 1 % (1-7); LYMPHOCYTES % (AUTO) 22 % (22-44); MEAN CORPUSCULAR HEMOGLOBIN 28.1 pg (27.5-34.5); MEAN CORPUSCULAR HGB CONC 32.7 g/dL (33.2-36.2); MONOCYTES % (AUTO) 19 % (2-9); NEUTROPHILS % (AUTO) 58 % (42-75); PLATELET COUNT 259 x10^3/uL (130-400); RED BLOOD COUNT 3.23 x10^6/uL (4.38-5.82); RED CELL DISTRIBUTION WIDTH 18.9 % (9.4-14.8)
[2020-12-20 05:58] LABS: CHLORIDE 93 mmol/L (98-107)
[2020-12-20 06:09] LABS: ALKALINE PHOSPHATASE 93 U/L (45-117); ANION GAP 5 mmol/L (5-15); BILIRUBIN,TOTAL 0.3 mg/dL (0.2-1.0); CALCIUM 8.4 mg/dL (8.5-10.1); CREATININE 0.69 mg/dL (0.7-1.3); TOTAL PROTEIN 6.8 g/dL (6.4-8.2)
[2020-12-20 06:11] LABS: ALANINE AMINOTRANSFERASE < 6 U/L (12-78)
[2020-12-20 06:30] LABS: MD SCAN
[2020-12-20 07:09] VITALS: BP 118/78
[2020-12-20] MEDS: FLUTICASONE/VILANTEROL 100-25MCG/INH INH SCH (07:40)
[2020-12-20 08:26] LABS: FREE T4 (FREE THYROXINE) 1.45 ng/dL (0.76-1.46)
[2020-12-20] MEDS: BUSPIRONE 5 MG TABLET PO SCH ×3 (09:00→20:51)
[2020-12-20] MEDS: SENNA/DOCUSATE TABLET PO SCH (09:00)
[2020-12-20] MEDS: POLYETHYLENE GLYCOL 17 GM PACKET PO SCH ×2 (09:00→20:50)
[2020-12-20] MEDS: FUROSEMIDE 40 MG TABLET PO SCH (09:01)
[2020-12-20] MEDS: APIXABAN 5 MG TABLET PO SCH ×2 (09:01→20:51)
[2020-12-20] MEDS: METOPROLOL TARTRATE 25 MG TAB PO SCH ×2 (09:01→20:51)
[2020-12-20] MEDS: DILTIAZEM 240 MG CAP.ER.24H PO SCH (09:01)
[2020-12-20] MEDS: MAGNESIUM OXIDE 400 MG TABLET PO SCH ×2 (09:02→20:51)
[2020-12-20] MEDS: SPIRONOLACTONE 25 MG TABLET PO SCH ×2 (09:02→20:51)
[2020-12-20] MEDS: PANTOPRAZOLE 40MG TABLET PO SCH ×2 (09:02→20:51)
[2020-12-20] MEDS: THIAMINE 100MG TABLET PO/NG SCH (09:02)
[2020-12-20] MEDS: LACTULOSE 10 GM/15 ML UDC PO SCH ×3 (09:03→20:50)
[2020-12-20 12:30] VITALS: BP 125/65
[2020-12-20 19:45] VITALS: BP 124/81
[2020-12-21] MEDS: ALBUTEROL-IPRATROPIUM MDI INH INH SCH ×4 (01:19→20:35)
[2020-12-21] MEDS: CEFAZOLIN PMX 2GM/50ML 50 ML IVPB SCH ×3 (01:19→18:26)
[2020-12-21 03:10] VITALS: BP 123/82
[2020-12-21] MEDS: OXYcodone IR 5MG TABLET PO PRN ×3 (06:48→21:07)
[2020-12-21 07:11] VITALS: BP 150/92
[2020-12-21] MEDS: FLUTICASONE/VILANTEROL 100-25MCG/INH INH SCH (08:29)
[2020-12-21] MEDS: APIXABAN 5 MG TABLET PO SCH ×2 (08:47→21:06)
[2020-12-21] MEDS: DILTIAZEM 240 MG CAP.ER.24H PO SCH (08:48)
[2020-12-21] MEDS: BUSPIRONE 5 MG TABLET PO SCH ×3 (08:49→21:06)
[2020-12-21] MEDS: THIAMINE 100MG TABLET PO/NG SCH (08:49)
[2020-12-21] MEDS: METOPROLOL TARTRATE 25 MG TAB PO SCH ×2 (08:49→21:18)
[2020-12-21] MEDS: SPIRONOLACTONE 25 MG TABLET PO SCH ×2 (08:49→21:10)
[2020-12-21] MEDS: PANTOPRAZOLE 40MG TABLET PO SCH ×2 (08:50→21:06)
[2020-12-21] MEDS: MAGNESIUM OXIDE 400 MG TABLET PO SCH ×2 (08:50→21:00)
[2020-12-21] MEDS: FUROSEMIDE 40 MG TABLET PO SCH (08:50)
[2020-12-21] MEDS: LACTULOSE 10 GM/15 ML UDC PO SCH ×3 (08:51→21:00)
[2020-12-21] MEDS: POLYETHYLENE GLYCOL 17 GM PACKET PO SCH ×2 (08:58→21:00)
[2020-12-21] MEDS: SENNA/DOCUSATE TABLET PO SCH (08:59)
[2020-12-21 13:23] VITALS: BP 100/65
[2020-12-21 18:59] VITALS: BP 115/71
[2020-12-22 01:11] VITALS: BP 147/88
[2020-12-22] MEDS: CEFAZOLIN PMX 2GM/50ML 50 ML IVPB SCH ×3 (02:22→17:38)
[2020-12-22] MEDS: ALBUTEROL-IPRATROPIUM MDI INH INH SCH ×4 (03:00→17:38)
[2020-12-22] MEDS: OXYcodone IR 5MG TABLET PO PRN ×4 (05:57→20:15)
[2020-12-22] MEDS: FLUTICASONE/VILANTEROL 100-25MCG/INH INH SCH (06:30)
[2020-12-22 07:33] VITALS: BP 143/81
[2020-12-22] MEDS: THIAMINE 100MG TABLET PO/NG SCH (08:33)
[2020-12-22] MEDS: DILTIAZEM 240 MG CAP.ER.24H PO SCH (08:33)
[2020-12-22] MEDS: MAGNESIUM OXIDE 400 MG TABLET PO SCH ×2 (08:33→20:16)
[2020-12-22] MEDS: SPIRONOLACTONE 25 MG TABLET PO SCH ×2 (08:33→20:16)
[2020-12-22] MEDS: PANTOPRAZOLE 40MG TABLET PO SCH ×2 (08:33→20:16)
[2020-12-22] MEDS: BUSPIRONE 5 MG TABLET PO SCH ×3 (08:33→20:15)
[2020-12-22] MEDS: APIXABAN 5 MG TABLET PO SCH ×2 (08:33→20:15)
[2020-12-22] MEDS: FUROSEMIDE 40 MG TABLET PO SCH (08:34)
[2020-12-22] MEDS: METOPROLOL TARTRATE 25 MG TAB PO SCH ×2 (08:34→20:15)
[2020-12-22] MEDS: LACTULOSE 10 GM/15 ML UDC PO SCH ×3 (08:34→20:16)
[2020-12-22] MEDS: POLYETHYLENE GLYCOL 17 GM PACKET PO SCH ×2 (08:45→20:16)
[2020-12-22] MEDS: SENNA/DOCUSATE TABLET PO SCH (08:46)
[2020-12-22] MEDS: THYROID 30 MG TABLET PO SCH (10:06)
[2020-12-22 13:37] VITALS: BP 116/77
[2020-12-22] MEDS ORDERED: OXYC5TAB98 PO (16:27)
[2020-12-22] MEDS ORDERED: OXYC10TA72 PO (16:27)
[2020-12-22] MEDS: ALBUTEROL HFA 90 MCG/SPRAY INH PRN (17:29)
[2020-12-22 19:31] VITALS: BP 132/84
[2020-12-23 00:27] VITALS: BP 108/70
[2020-12-23] MEDS: OXYcodone IR 5MG TABLET PO PRN ×3 (01:40→09:56)
[2020-12-23] MEDS: CEFAZOLIN PMX 2GM/50ML 50 ML IVPB SCH ×2 (01:43→09:29)
[2020-12-23] MEDS: ALBUTEROL-IPRATROPIUM MDI INH INH SCH ×3 (02:15→08:52)
[2020-12-23] MEDS: THYROID 30 MG TABLET PO SCH (05:40)
[2020-12-23] MEDS: FLUTICASONE/VILANTEROL 100-25MCG/INH INH SCH (07:15)
[2020-12-23 08:09] VITALS: BP 119/83
[2020-12-23] MEDS: LACTULOSE 10 GM/15 ML UDC PO SCH (08:49)
[2020-12-23] MEDS: THIAMINE 100MG TABLET PO/NG SCH (08:50)
[2020-12-23] MEDS: DILTIAZEM 240 MG CAP.ER.24H PO SCH (08:50)
[2020-12-23] MEDS: BUSPIRONE 5 MG TABLET PO SCH (08:50)
[2020-12-23] MEDS: SPIRONOLACTONE 25 MG TABLET PO SCH (08:50)
[2020-12-23] MEDS: FUROSEMIDE 40 MG TABLET PO SCH (08:50)
[2020-12-23] MEDS: MAGNESIUM OXIDE 400 MG TABLET PO SCH (08:51)
[2020-12-23] MEDS: SENNA/DOCUSATE TABLET PO SCH (08:51)
[2020-12-23] MEDS: PANTOPRAZOLE 40MG TABLET PO SCH (08:51)
[2020-12-23] MEDS: METOPROLOL TARTRATE 25 MG TAB PO SCH (08:51)
[2020-12-23] MEDS: POLYETHYLENE GLYCOL 17 GM PACKET PO SCH (08:51)
[2020-12-23] MEDS: APIXABAN 5 MG TABLET PO SCH (08:51)
== END 2020-12-23 10:31 | DRG 81 ==
LOC: ED 11:33 → EDIP 13:17 → 4EST 16:27
PROVIDERS: ADMIT Internal Medicine; ATTEND Family Medicine
PROC: 30233N1 Transfusion of Nonautologous Red Blood Cells into Peripheral Vein, Percutaneous Approach (ICD-10-PCS; principal; 2020-12-16)
PROC: 02HV33Z Insertion of Infusion Device into Superior Vena Cava, Percutaneous Approach (ICD-10-PCS; 2020-12-16)
DX: R40.0 Somnolence (principal); J96.11 Chronic respiratory failure with hypoxia; D68.69 Other thrombophilia; J96.12 Chronic respiratory failure with hypercapnia; G89.29 Other chronic pain; I10 Essential (primary) hypertension; I48.0 Paroxysmal atrial fibrillation; Z51.5 Encounter for palliative care; Z91.013 Allergy to seafood; Z91.018 Allergy to other foods; Z79.01 Long term (current) use of anticoagulants; Z82.49 Family history of ischemic heart disease and other diseases of the circulatory system; Z86.718 Personal history of other venous thrombosis and embolism; Z87.891 Personal history of nicotine dependence; Z99.81 Dependence on supplemental oxygen; I95.9 Hypotension, unspecified; J44.9 Chronic obstructive pulmonary disease, unspecified; D63.8 Anemia in other chronic diseases classified elsewhere
CPT/HCPCS: 36415; 36600; 71045; 71275; 80048; 80053; 81001; 82140; 82272; 82607; 82728; 82803; 83540; 83550; 83605; 83690; 83735; 83880; 84100; 84145; 84439; 84443; 84481; 84484; 85025; 85379; 86140; 86850; 86900; 86923; 87040; 87086; 93005; 94640; 99285; G0378; J0690; Q9967; 92523-GN; J7030; P9016

== ENCOUNTER 2020-12-27 01:47 | Emergency (ER) | payer MEDICAID ==
[~2020-12-27] VITALS: Ht 190.5 cm; Wt 81.0 kg
[~2020-12-27 01:47] MED LIST changes: +OXYC10TA72 PO
[2020-12-27] MEDS ORDERED: METHOCARBAMOL 750 MG TABLET PO ONE (02:00)
[2020-12-27] MEDS ORDERED: METHOCARBAMOL 750 MG TABLET ONE (02:10)
--- NOTE | 2020-12-27 02:27 | NUR ---
BREAK RN: PT. RETURN TO ROOM FROM X-RAY. PT. REPORTS "I AM STILL DEALING WITH THIS PAIN BUT, IT'S STARTING TO GO DOWN. REMINDED PT. OF NEED FOR URINE SAMPLE. PT. STATES UNABLE TO VOID AT THIS TIME. CALL LIGHT IN REACH; EDUCATED ON USE AND VEBALIZED UNDERSTANDING. ALL SAFETY MEASURES OBSERVED.
--- NOTE | 2020-12-27 03:31 | NUR ---
pt states still unable to void at this time. dr gambino notified.
--- NOTE | 2020-12-27 05:07 | NUR ---
KATH TO TRANSPORT PT BACK TO [facility]
[2020-12-27 05:09] VITALS: BP 118/79
[2020-12-27] MEDS ORDERED: ACETAMINOPHEN 500 MG TABLET ONE (05:46)
[2020-12-27] MEDS ORDERED: ACETAMINOPHEN 500 MG TABLET PO ONE (06:00)
--- NOTE | 2020-12-27 06:39 | NUR ---
PT PROVIDED SNACKS, MILK, AND WATER
== END 2020-12-27 06:45 | disposition home or self-care (01) ==
LOC: ED 03:49
DX: S29.012A Strain of muscle and tendon of back wall of thorax, initial encounter (principal); E11.9 Type 2 diabetes mellitus without complications; J44.9 Chronic obstructive pulmonary disease, unspecified; I11.0 Hypertensive heart disease with heart failure; I50.9 Heart failure, unspecified; I48.91 Unspecified atrial fibrillation; J45.909 Unspecified asthma, uncomplicated; Z90.89 Acquired absence of other organs; Z87.891 Personal history of nicotine dependence; Z86.718 Personal history of other venous thrombosis and embolism; X58.XXXA Exposure to other specified factors, initial encounter; Y93.89 Activity, other specified; Y92.89 Other specified places as the place of occurrence of the external cause; Y99.8 Other external cause status
CPT/HCPCS: 72072; 99283

== ENCOUNTER 2021-01-07 14:44 | Inpatient (IN) | payer MEDICAID ==
[~2021-01-07] VITALS: Ht 190.5 cm; Wt 76.4 kg
[2021-01-07] MEDS ORDERED: ONDANSETRON 2MG/ML, 2ML ONE (15:10)
[2021-01-07] MEDS ORDERED: MORPHINE SULFATE 4 MG/ML, 1ML ONE ×2 (15:10→16:36)
--- NOTE | 2021-01-07 15:23 | NUR ---
labd drawn by this RN from peripherally inserted central line. 10Ml waste. IV f rosanne. recheck vital signs.
[2021-01-07] MEDS ORDERED: MORPHINE SULFATE 4 MG/ML, 1ML IVPush ONE ×2 (15:30→17:00)
[2021-01-07] MEDS ORDERED: SODIUM CHLORIDE 0.9% 1,000ML IVBOLUS ONE ×2 (15:30→17:00)
[2021-01-07] MEDS ORDERED: ONDANSETRON 2MG/ML, 2ML IVPush ONE ×2 (15:30→17:00)
[2021-01-07] MEDS ORDERED: SODIUM CHLORIDE FLUSH 10ML SYR IVF ONE (15:30)
[2021-01-07 15:36] LABS: BASOPHILS % (AUTO) 1 % (0-1); EOSINOPHILS % (AUTO) 0 % (1-7); LYMPHOCYTES % (AUTO) 9 % (22-44); MEAN CORPUSCULAR HEMOGLOBIN 26.9 pg (27.5-34.5); MEAN PLATELET VOLUME 6.8 fL (7.4-10.4); MONOCYTES % (AUTO) 7 % (2-9); NEUTROPHILS % (AUTO) 83 % (42-75); PLATELET COUNT 467 x10^3/uL (130-400); RED BLOOD COUNT 3.11 x10^6/uL (4.38-5.82); RED CELL DISTRIBUTION WIDTH 18.8 % (9.4-14.8)
[2021-01-07 15:43] LABS: ALBUMIN 2.6 g/dL (3.4-5.0); CALCIUM 8.6 mg/dL (8.5-10.1); CHLORIDE 92 mmol/L (98-107); CREATININE 0.73 mg/dL (0.7-1.3)
--- NOTE | 2021-01-07 15:44 | NUR ---
BREAK RN: PT WATCHING TV IN ROOM. NO ACUTE DISTRESS NOTED. WILL CONTINUE TO MONITOR WHILE PRIMARY RN IS ON BREAK.
[2021-01-07 15:45] LABS: ALKALINE PHOSPHATASE 75 U/L (45-117); BILIRUBIN,TOTAL 0.2 mg/dL (0.2-1.0); TOTAL PROTEIN 7.1 g/dL (6.4-8.2)
[2021-01-07] MEDS ORDERED: FLUT1AER INH (15:47)
[2021-01-07] MEDS ORDERED: DILT120T3 PO (15:49)
[2021-01-07] MEDS ORDERED: HYDR50TA99 PO (15:50)
[2021-01-07 15:51] LABS: ALANINE AMINOTRANSFERASE < 6 U/L (12-78); ANION GAP 6 mmol/L (5-15)
[2021-01-07] MEDS ORDERED: METH5TAB2 PO (15:51)
[2021-01-07] MEDS ORDERED: PANT40TA6 PO (15:52)
[2021-01-07 16:01] LABS: INTERNATIONAL NORMALIZED RATIO 1.05 (0.93-1.1); PROTHROMBIN TIME 11.2 Seconds (9.6-11.5)
[2021-01-07 16:03] LABS: MD SCAN
--- NOTE | 2021-01-07 16:11 | NUR ---
PT AWAY TO CT VIA TECH
[2021-01-07] MEDS ORDERED: OMNIPAQUE 350 MG/ML, 100ML BOTTLE ONE (16:15)
--- NOTE | 2021-01-07 16:47 | NUR ---
told to stop fluids by Phyllis FLORES due to CHF on CT.
--- NOTE | 2021-01-07 17:13 | NUR ---
pt unable to produce a stool sample. Pt able to urinate.
--- NOTE | 2021-01-07 18:28 | NUR ---
pt able to tolerate apple juice without nausea and swallowing well.
--- NOTE | 2021-01-07 19:20 | NUR ---
pt aware of admission. urine sent. awaiting bed assignment.
[2021-01-07 19:27] LABS: MICROSCOPIC NOT IND
[2021-01-07] MEDS ORDERED: SODIUM CHLORIDE FLUSH 10ML SYR IVF PRN (19:30)
[2021-01-07] MEDS ORDERED: SODIUM CHLORIDE 0.9% 1,000 ML IV ONE (19:30)
--- NOTE | 2021-01-07 20:07 | NUR ---
Attempted Report. RN unavailable.
--- NOTE | 2021-01-07 20:28 | NUR ---
Report To Anali HAUSER Pt on O@. to be tranported via tech.
[2021-01-07 20:51] VITALS: BP 152/94
[2021-01-07] MEDS ORDERED: DOCUSATE 100 MG CAPSULE PO PRN (21:00)
[2021-01-07] MEDS ORDERED: MELATONIN 5 MG TABLET PO PRN (21:00)
[2021-01-07] MEDS ORDERED: hydrALAzine 20 MG/ML, 1ML IVPush PRN (21:00)
[2021-01-07] MEDS ORDERED: ONDANSETRON 2MG/ML, 2ML IVPush PRN (21:00)
[2021-01-07] MEDS ORDERED: hydrOXyzine 50MG TABLET PO SCH (22:00)
[2021-01-07] MEDS ORDERED: CEFAZOLIN 2,000 MG in SODIUM CHLORIDE 0.9% 100 ML IV SCH (22:00)
[2021-01-07] MEDS: METHADONE 10 MG TABLET PO SCH (22:13)
[2021-01-07] MEDS ORDERED: SODIUM ZIRCONIUM CYCLOSILICATE 5 GM PO ONE (22:30)
[2021-01-07] MEDS: APIXABAN 5 MG TABLET PO SCH (22:33)
[2021-01-07] MEDS: GABAPENTIN 300 MG CAPSULE PO SCH (22:33)
[2021-01-07] MEDS: hydrOXyzine 50MG TABLET PO SCH (22:33)
[2021-01-07] MEDS: morphine SULFATE 10 MG/ML, 1ML IVPush PRN (23:28)
[2021-01-07] MEDS ORDERED: GABAPENTIN 300 MG CAPSULE PO SCH (23:30)
[2021-01-07] MEDS: MELATONIN 5 MG TABLET PO SCH (23:30)
[2021-01-07] MEDS ORDERED: BISACODYL 10 MG SUPP PR PRN (23:30)
[2021-01-07] MEDS ORDERED: ALBUTEROL HFA 90 MCG/SPRAY INH PRN ×2 (23:30)
[2021-01-07 23:57] LABS: CHLORIDE,URINE RANDOM 43 mmol/L; POTASSIUM,URINE RANDOM 20 mmol/L; SODIUM,URINE RANDOM 44 mmol/L
[2021-01-08 00:44] VITALS: BP 140/86
[2021-01-08] MEDS: SPIRONOLACTONE 25 MG TABLET PO SCH ×3 (00:46→20:05)
[2021-01-08] MEDS: BUSPIRONE 5 MG TABLET PO SCH ×4 (00:46→20:06)
[2021-01-08] MEDS: MAGNESIUM OXIDE 400 MG TABLET PO SCH ×3 (00:46→20:05)
[2021-01-08] MEDS: SENNOSIDES 8.6 MG TABLET PO SCH ×3 (00:46→20:07)
[2021-01-08] MEDS: METOPROLOL TARTRATE 25 MG TAB PO SCH ×3 (00:47→20:06)
[2021-01-08] MEDS: SODIUM CHLORIDE 0.9% 1,000 ML IV SCH ×3 (00:48→20:06)
[2021-01-08] MEDS: morphine SULFATE 10 MG/ML, 1ML IVPush PRN ×4 (03:26→16:51)
[2021-01-08] MEDS: hydrOXyzine 50MG TABLET PO SCH ×4 (06:02→22:48)
[2021-01-08] MEDS: METHADONE 10 MG TABLET PO SCH ×3 (06:02→22:12)
[2021-01-08 06:18] LABS: BASOPHILS % (AUTO) 0 % (0-1); EOSINOPHILS % (AUTO) 1 % (1-7); LYMPHOCYTES % (AUTO) 18 % (22-44); MEAN CORPUSCULAR HEMOGLOBIN 27.3 pg (27.5-34.5); MEAN CORPUSCULAR HGB CONC 32.5 g/dL (33.2-36.2); MEAN PLATELET VOLUME 6.8 fL (7.4-10.4); MONOCYTES % (AUTO) 13 % (2-9); NEUTROPHILS % (AUTO) 68 % (42-75); PLATELET COUNT 438 x10^3/uL (130-400); RED CELL DISTRIBUTION WIDTH 19.3 % (9.4-14.8)
[2021-01-08 06:33] VITALS: BP 110/72
[2021-01-08 06:36] LABS: CHLORIDE 95 mmol/L (98-107)
[2021-01-08 06:38] LABS: CREATININE 0.57 mg/dL (0.7-1.3)
[2021-01-08 06:57] LABS: ANION GAP 5 mmol/L (5-15)
[2021-01-08 07:26] LABS: MD SCAN
[2021-01-08] MEDS: TIOTROPIUM BROMIDE 18 MCG/INH INH SCH (07:30)
[2021-01-08] MEDS: POLYETHYLENE GLYCOL 17 GM PACKET PO SCH ×2 (08:39→20:07)
[2021-01-08] MEDS: PANTOPRAZOLE 40MG TABLET PO SCH (08:40)
[2021-01-08] MEDS: APIXABAN 5 MG TABLET PO SCH ×2 (08:41→20:06)
[2021-01-08] MEDS: THIAMINE 100MG TABLET PO/NG SCH (08:41)
[2021-01-08] MEDS: DILTIAZEM 240 MG CAP.ER.24H PO SCH (08:41)
[2021-01-08] MEDS: FUROSEMIDE 40 MG TABLET PO SCH (08:41)
[2021-01-08] MEDS: GABAPENTIN 300 MG CAPSULE PO SCH ×3 (08:42→20:05)
[2021-01-08 08:46] VITALS: BP 126/80
[2021-01-08] MEDS: FLUTICASONE/VILANTEROL 100-25MCG/INH INH SCH (09:00)
[2021-01-08] MEDS: CEFAZOLIN PMX 2GM/50ML 50 ML IVPB SCH ×2 (09:40→16:43)
[2021-01-08] MEDS ORDERED: MAGNESIUM SULFATE PMX 2GM/50ML 50 ML IV ONE (11:00)
[2021-01-08] MEDS: VANCOMYCIN 50 MG/ML ORAL SUSP PO SCH ×3 (11:38→23:12)
[2021-01-08 12:36] VITALS: BP 100/51
[2021-01-08] MEDS: ALBUTEROL HFA 90 MCG/SPRAY INH SCH ×2 (15:00→19:30)
[2021-01-08 19:20] VITALS: BP 126/76
[2021-01-08] MEDS: MELATONIN 5 MG TABLET PO SCH (20:06)
[2021-01-08 22:46] LABS: ANION GAP 3 mmol/L (5-15); CALCIUM 8.3 mg/dL (8.5-10.1); CHLORIDE 96 mmol/L (98-107); CREATININE 0.51 mg/dL (0.7-1.3)
[2021-01-09 00:14] VITALS: BP 113/77
[2021-01-09] MEDS: CEFAZOLIN PMX 2GM/50ML 50 ML IVPB SCH ×3 (01:01→16:49)
[2021-01-09] MEDS: hydrOXyzine 50MG TABLET PO SCH ×2 (04:01→09:14)
[2021-01-09 04:16] LABS: BASOPHILS % (AUTO) 0 % (0-1); EOSINOPHILS % (AUTO) 1 % (1-7); LYMPHOCYTES % (AUTO) 21 % (22-44); MEAN CORPUSCULAR HGB CONC 32.2 g/dL (33.2-36.2); MEAN PLATELET VOLUME 6.6 fL (7.4-10.4); MONOCYTES % (AUTO) 12 % (2-9); NEUTROPHILS % (AUTO) 66 % (42-75); PLATELET COUNT 409 x10^3/uL (130-400); RED BLOOD COUNT 2.97 x10^6/uL (4.38-5.82); RED CELL DISTRIBUTION WIDTH 18.8 % (9.4-14.8)
[2021-01-09 04:23] LABS: ANION GAP 4 mmol/L (5-15); CALCIUM 8.5 mg/dL (8.5-10.1); CHLORIDE 96 mmol/L (98-107); CREATININE 0.52 mg/dL (0.7-1.3)
[2021-01-09] MEDS: VANCOMYCIN 50 MG/ML ORAL SUSP PO SCH ×3 (04:32→16:48)
[2021-01-09] MEDS: morphine SULFATE 10 MG/ML, 1ML IVPush PRN ×5 (04:32→20:12)
[2021-01-09 04:35] LABS: MD SCAN
[2021-01-09] MEDS: METHADONE 10 MG TABLET PO SCH ×3 (05:44→20:16)
[2021-01-09] MEDS: SODIUM CHLORIDE 0.9% 1,000 ML IV SCH (05:47)
[2021-01-09 06:38] VITALS: BP 135/84
[2021-01-09] MEDS: ALBUTEROL HFA 90 MCG/SPRAY INH SCH ×4 (07:15→20:15)
[2021-01-09] MEDS: FLUTICASONE/VILANTEROL 100-25MCG/INH INH SCH (07:15)
[2021-01-09] MEDS: POLYETHYLENE GLYCOL 17 GM PACKET PO SCH ×2 (09:00→21:16)
[2021-01-09] MEDS: SENNOSIDES 8.6 MG TABLET PO SCH ×2 (09:00→20:16)
[2021-01-09] MEDS: FUROSEMIDE 40 MG TABLET PO SCH (09:13)
[2021-01-09] MEDS: SPIRONOLACTONE 25 MG TABLET PO SCH ×2 (09:14→20:17)
[2021-01-09] MEDS: METOPROLOL TARTRATE 25 MG TAB PO SCH ×2 (09:14→20:16)
[2021-01-09] MEDS: GABAPENTIN 300 MG CAPSULE PO SCH ×3 (09:14→20:15)
[2021-01-09] MEDS: APIXABAN 5 MG TABLET PO SCH (09:14)
[2021-01-09] MEDS: BUSPIRONE 5 MG TABLET PO SCH ×3 (09:14→20:14)
[2021-01-09] MEDS: DILTIAZEM 240 MG CAP.ER.24H PO SCH (09:15)
[2021-01-09] MEDS: MAGNESIUM OXIDE 400 MG TABLET PO SCH ×2 (09:15→20:14)
[2021-01-09] MEDS: THIAMINE 100MG TABLET PO/NG SCH (09:15)
[2021-01-09] MEDS: PANTOPRAZOLE 40MG TABLET PO SCH (09:16)
[2021-01-09 12:52] VITALS: BP 123/77
[2021-01-09] MEDS ORDERED: hydrOXyzine 50MG TABLET PO PRN (15:30)
[2021-01-09] MEDS: OxyconTIN ER 10 MG TAB.ER PO SCH (16:48)
[2021-01-09 19:24] VITALS: BP 120/77
[2021-01-09] MEDS: MELATONIN 5 MG TABLET PO SCH (20:15)
[2021-01-09] MEDS ORDERED: MAGNESIUM OXIDE 400 MG TABLET PO SCH (21:00)
[2021-01-09] MEDS ORDERED: APIXABAN 5 MG TABLET PO SCH (21:00)
[2021-01-10] MEDS: VANCOMYCIN 50 MG/ML ORAL SUSP PO SCH ×5 (00:22→22:48)
[2021-01-10 00:31] VITALS: BP 124/75
[2021-01-10] MEDS: CEFAZOLIN PMX 2GM/50ML 50 ML IVPB SCH ×3 (01:31→19:24)
[2021-01-10] MEDS: OxyconTIN ER 10 MG TAB.ER PO SCH ×2 (03:49→15:32)
[2021-01-10] MEDS: POLYETHYLENE GLYCOL 17 GM PACKET PO SCH ×2 (04:34→21:23)
[2021-01-10] MEDS: morphine SULFATE 10 MG/ML, 1ML IVPush PRN ×3 (04:35→15:32)
[2021-01-10] MEDS: METHADONE 10 MG TABLET PO SCH ×3 (06:09→22:48)
[2021-01-10] MEDS: FLUTICASONE/VILANTEROL 100-25MCG/INH INH SCH (07:00)
[2021-01-10] MEDS: TIOTROPIUM BROMIDE 18 MCG/INH INH SCH (07:00)
[2021-01-10] MEDS: ALBUTEROL HFA 90 MCG/SPRAY INH SCH ×4 (07:00→19:55)
[2021-01-10 07:39] VITALS: BP 138/83
[2021-01-10] MEDS: GABAPENTIN 300 MG CAPSULE PO SCH ×3 (08:21→21:23)
[2021-01-10] MEDS: SPIRONOLACTONE 25 MG TABLET PO SCH ×2 (08:21→21:26)
[2021-01-10] MEDS: FUROSEMIDE 40 MG TABLET PO SCH (08:22)
[2021-01-10] MEDS: BUSPIRONE 5 MG TABLET PO SCH ×3 (08:22→21:24)
[2021-01-10] MEDS: THIAMINE 100MG TABLET PO/NG SCH (08:22)
[2021-01-10] MEDS: SENNOSIDES 8.6 MG TABLET PO SCH ×2 (08:22→21:00)
[2021-01-10] MEDS: METOPROLOL TARTRATE 25 MG TAB PO SCH ×2 (08:23→21:26)
[2021-01-10] MEDS: DILTIAZEM 240 MG CAP.ER.24H PO SCH (08:24)
[2021-01-10] MEDS: MAGNESIUM OXIDE 400 MG TABLET PO SCH ×2 (08:24→21:25)
[2021-01-10] MEDS: PANTOPRAZOLE 40MG TABLET PO SCH (08:24)
[2021-01-10] MEDS ORDERED: FLUDROCORTISONE 0.1 MG TABLET PO SCH (09:00)
[2021-01-10] MEDS ORDERED: METHYLNALTREXONE 12 MG/0.6 ML SYR SQ ONE (09:00)
[2021-01-10] MEDS: OXYcodone IR 5MG TABLET PO PRN ×2 (12:15→19:49)
[2021-01-10 13:51] LABS: CLOSTRIDIUM DIFFICILE ANTIGEN NEGATIVE; CLOSTRIDIUM DIFFICILE TOXIN NEGATIVE (Negative)
[2021-01-10 13:59] VITALS: BP 132/78
[2021-01-10] MEDS: FUROSEMIDE 40 MG/4 ML IV SCH (15:32)
[2021-01-10 20:23] VITALS: BP 150/92
[2021-01-10] MEDS: MELATONIN 5 MG TABLET PO SCH (21:00)
[2021-01-10 21:36] VITALS: BP 110/75
[2021-01-11 00:30] VITALS: BP 114/74
[2021-01-11] MEDS: OXYcodone IR 5MG TABLET PO PRN ×3 (02:07→17:21)
[2021-01-11] MEDS: CEFAZOLIN PMX 2GM/50ML 50 ML IVPB SCH ×3 (03:14→19:18)
[2021-01-11] MEDS: OxyconTIN ER 10 MG TAB.ER PO SCH ×2 (03:51→14:56)
[2021-01-11 04:52] LABS: BASOPHILS % (AUTO) 0 % (0-1); EOSINOPHILS % (AUTO) 1 % (1-7); LYMPHOCYTES % (AUTO) 19 % (22-44); MEAN CORPUSCULAR HEMOGLOBIN 26.6 pg (27.5-34.5); MEAN CORPUSCULAR HGB CONC 31.9 g/dL (33.2-36.2); MONOCYTES % (AUTO) 12 % (2-9); NEUTROPHILS % (AUTO) 68 % (42-75); PLATELET COUNT 362 x10^3/uL (130-400); RED BLOOD COUNT 3.08 x10^6/uL (4.38-5.82); RED CELL DISTRIBUTION WIDTH 18.4 % (9.4-14.8)
[2021-01-11 04:53] LABS: MD NO
[2021-01-11] MEDS: VANCOMYCIN 50 MG/ML ORAL SUSP PO SCH ×4 (05:01→23:10)
[2021-01-11 05:05] LABS: ALBUMIN 2.4 g/dL (3.4-5.0); ANION GAP 2 mmol/L (5-15); CALCIUM 8.6 mg/dL (8.5-10.1); CHLORIDE 88 mmol/L (98-107)
[2021-01-11 05:10] LABS: ALANINE AMINOTRANSFERASE 8 U/L (12-78); ALKALINE PHOSPHATASE 79 U/L (45-117); BILIRUBIN,TOTAL 0.2 mg/dL (0.2-1.0); CREATININE 0.61 mg/dL (0.7-1.3); TOTAL PROTEIN 6.7 g/dL (6.4-8.2)
[2021-01-11 06:43] VITALS: BP 114/72
[2021-01-11] MEDS: ALBUTEROL HFA 90 MCG/SPRAY INH SCH ×5 (07:00→23:54)
[2021-01-11] MEDS: FLUTICASONE/VILANTEROL 100-25MCG/INH INH SCH (07:02)
[2021-01-11] MEDS: TIOTROPIUM BROMIDE 18 MCG/INH INH SCH (07:02)
[2021-01-11] MEDS: METOPROLOL TARTRATE 25 MG TAB PO SCH ×2 (08:26→21:40)
[2021-01-11] MEDS: GABAPENTIN 300 MG CAPSULE PO SCH ×3 (08:28→21:39)
[2021-01-11] MEDS: FLUDROCORTISONE 0.1 MG TABLET PO SCH (08:28)
[2021-01-11] MEDS: DILTIAZEM 240 MG CAP.ER.24H PO SCH (08:29)
[2021-01-11] MEDS: THIAMINE 100MG TABLET PO/NG SCH (08:29)
[2021-01-11] MEDS: SPIRONOLACTONE 25 MG TABLET PO SCH ×2 (08:29→21:40)
[2021-01-11] MEDS: BUSPIRONE 5 MG TABLET PO SCH ×3 (08:29→21:39)
[2021-01-11] MEDS: MAGNESIUM OXIDE 400 MG TABLET PO SCH ×2 (08:29→21:39)
[2021-01-11] MEDS: METHADONE 10 MG TABLET PO SCH ×3 (08:29→23:09)
[2021-01-11] MEDS: PANTOPRAZOLE 40MG TABLET PO SCH (08:29)
[2021-01-11] MEDS: SENNOSIDES 8.6 MG TABLET PO SCH ×2 (08:30→21:00)
[2021-01-11] MEDS: POLYETHYLENE GLYCOL 17 GM PACKET PO SCH ×2 (08:30→21:00)
[2021-01-11] MEDS: FUROSEMIDE 40 MG/4 ML IV SCH ×2 (08:31→17:20)
[2021-01-11 12:23] VITALS: BP 112/73
[2021-01-11] MEDS ORDERED: METHYLNALTREXONE 12 MG/0.6 ML SYR SQ ONE (12:30)
[2021-01-11] MEDS: LIDODERM 5% PATCH TD PRN (19:19)
[2021-01-11 19:59] VITALS: BP 115/67
[2021-01-11] MEDS: MELATONIN 5 MG TABLET PO SCH (21:00)
[2021-01-11 21:44] VITALS: BP 133/85
[2021-01-12 00:23] VITALS: BP 113/74
[2021-01-12] MEDS: CEFAZOLIN PMX 2GM/50ML 50 ML IVPB SCH ×2 (03:08→12:18)
[2021-01-12] MEDS: OxyconTIN ER 10 MG TAB.ER PO SCH ×2 (03:09→16:27)
[2021-01-12 05:02] LABS: ALANINE AMINOTRANSFERASE 7 U/L (12-78); ALBUMIN 2.4 g/dL (3.4-5.0); ANION GAP 3 mmol/L (5-15); CALCIUM 8.6 mg/dL (8.5-10.1); CHLORIDE 84 mmol/L (98-107); CREATININE 0.67 mg/dL (0.7-1.3)
[2021-01-12 05:04] LABS: ALKALINE PHOSPHATASE 73 U/L (45-117); TOTAL PROTEIN 6.6 g/dL (6.4-8.2)
[2021-01-12 05:05] LABS: BILIRUBIN,TOTAL < 0.1 mg/dL (0.2-1.0)
[2021-01-12] MEDS: OXYcodone IR 5MG TABLET PO PRN ×3 (05:20→19:52)
[2021-01-12] MEDS: VANCOMYCIN 50 MG/ML ORAL SUSP PO SCH ×4 (05:20→23:09)
[2021-01-12 07:08] VITALS: BP 142/86
[2021-01-12] MEDS: METHADONE 10 MG TABLET PO SCH ×3 (07:11→23:08)
[2021-01-12] MEDS: FUROSEMIDE 40 MG/4 ML IV SCH (07:11)
[2021-01-12] MEDS: ALBUTEROL HFA 90 MCG/SPRAY INH SCH ×4 (07:41→20:00)
[2021-01-12] MEDS: TIOTROPIUM BROMIDE 18 MCG/INH INH SCH (07:41)
[2021-01-12] MEDS: FLUTICASONE/VILANTEROL 100-25MCG/INH INH SCH (07:41)
[2021-01-12] MEDS: MAGNESIUM OXIDE 400 MG TABLET PO SCH ×2 (08:33→21:48)
[2021-01-12] MEDS: GABAPENTIN 300 MG CAPSULE PO SCH ×3 (08:33→21:48)
[2021-01-12] MEDS: SPIRONOLACTONE 25 MG TABLET PO SCH ×2 (08:33→21:49)
[2021-01-12] MEDS: FLUDROCORTISONE 0.1 MG TABLET PO SCH (08:33)
[2021-01-12] MEDS: METOPROLOL TARTRATE 25 MG TAB PO SCH ×2 (08:34→21:48)
[2021-01-12] MEDS: BUSPIRONE 5 MG TABLET PO SCH ×3 (08:34→21:47)
[2021-01-12] MEDS: DILTIAZEM 240 MG CAP.ER.24H PO SCH (08:34)
[2021-01-12] MEDS: THIAMINE 100MG TABLET PO/NG SCH (08:34)
[2021-01-12] MEDS: PANTOPRAZOLE 40MG TABLET PO SCH (08:34)
[2021-01-12] MEDS: HYDROCORTISONE 10 MG TABLET PO SCH ×3 (08:34→16:27)
[2021-01-12] MEDS: POLYETHYLENE GLYCOL 17 GM PACKET PO SCH ×2 (08:35→21:00)
[2021-01-12] MEDS: FUROSEMIDE 20 MG TABLET PO SCH (08:35)
[2021-01-12] MEDS: SENNOSIDES 8.6 MG TABLET PO SCH ×3 (08:35→21:00)
[2021-01-12 12:58] VITALS: BP 110/70
[2021-01-12 18:25] VITALS: BP 131/77
[2021-01-12] MEDS ORDERED: CEFAZOLIN PMX 2GM/50ML 50 ML IVPB SCH (20:00)
[2021-01-12 21:45] VITALS: BP 128/72
[2021-01-12] MEDS: MELATONIN 5 MG TABLET PO SCH (21:48)
[2021-01-13 01:00] VITALS: BP 118/82
[2021-01-13] MEDS: OxyconTIN ER 10 MG TAB.ER PO SCH ×3 (03:26→17:57)
[2021-01-13] MEDS: VANCOMYCIN 50 MG/ML ORAL SUSP PO SCH ×4 (05:09→23:09)
[2021-01-13] MEDS: ALBUTEROL HFA 90 MCG/SPRAY INH SCH ×4 (06:45→20:17)
[2021-01-13 07:00] VITALS: BP 173/94
[2021-01-13] MEDS: METOPROLOL TARTRATE 25 MG TAB PO SCH ×2 (08:20→20:48)
[2021-01-13] MEDS: FLUDROCORTISONE 0.1 MG TABLET PO SCH (08:20)
[2021-01-13] MEDS: POLYETHYLENE GLYCOL 17 GM PACKET PO SCH ×2 (08:20→20:49)
[2021-01-13] MEDS: BUSPIRONE 5 MG TABLET PO SCH ×3 (08:21→20:48)
[2021-01-13] MEDS: SPIRONOLACTONE 25 MG TABLET PO SCH (08:22)
[2021-01-13] MEDS: SENNOSIDES 8.6 MG TABLET PO SCH ×2 (08:22→20:49)
[2021-01-13] MEDS: DILTIAZEM 240 MG CAP.ER.24H PO SCH (08:22)
[2021-01-13] MEDS: PANTOPRAZOLE 40MG TABLET PO SCH (08:22)
[2021-01-13] MEDS: METHADONE 10 MG TABLET PO SCH ×3 (08:22→23:09)
[2021-01-13] MEDS: HYDROCORTISONE 10 MG TABLET PO SCH ×3 (08:23→17:57)
[2021-01-13] MEDS: GABAPENTIN 300 MG CAPSULE PO SCH ×3 (08:23→20:49)
[2021-01-13] MEDS: MAGNESIUM OXIDE 400 MG TABLET PO SCH ×2 (08:23→20:49)
[2021-01-13] MEDS: THIAMINE 100MG TABLET PO/NG SCH (08:23)
[2021-01-13] MEDS: TIOTROPIUM BROMIDE 18 MCG/INH INH SCH (08:24)
[2021-01-13] MEDS: FLUTICASONE/VILANTEROL 100-25MCG/INH INH SCH (08:24)
[2021-01-13] MEDS: OXYcodone IR 5MG TABLET PO PRN ×2 (08:36→15:11)
[2021-01-13] MEDS: LIDODERM 5% PATCH TD PRN (08:44)
[2021-01-13] MEDS: FUROSEMIDE 20 MG TABLET PO SCH (08:49)
[2021-01-13 12:38] LABS: BASOPHILS % (AUTO) 1 % (0-1); EOSINOPHILS % (AUTO) 1 % (1-7); LYMPHOCYTES % (AUTO) 15 % (22-44); MEAN CORPUSCULAR HEMOGLOBIN 26.4 pg (27.5-34.5); MEAN CORPUSCULAR HGB CONC 32.4 g/dL (33.2-36.2); MEAN PLATELET VOLUME 6.9 fL (7.4-10.4); MONOCYTES % (AUTO) 12 % (2-9); NEUTROPHILS % (AUTO) 71 % (42-75); PLATELET COUNT 408 x10^3/uL (130-400); RED BLOOD COUNT 3.52 x10^6/uL (4.38-5.82); RED CELL DISTRIBUTION WIDTH 18.9 % (9.4-14.8)
[2021-01-13 12:51] LABS: ANION GAP 6 mmol/L (5-15); CALCIUM 9.2 mg/dL (8.5-10.1); CHLORIDE 83 mmol/L (98-107); CREATININE 0.84 mg/dL (0.7-1.3)
[2021-01-13 13:44] LABS: MD SCAN
[2021-01-13 13:50] VITALS: BP 108/67
[2021-01-13 17:44] LABS: POTASSIUM,URINE RANDOM 30 mmol/L; SODIUM,URINE RANDOM 11 mmol/L
[2021-01-13 17:46] LABS: CHLORIDE,URINE RANDOM < 10 mmol/L
[2021-01-13 18:54] VITALS: BP 159/84
[2021-01-13] MEDS: MELATONIN 5 MG TABLET PO SCH (20:48)
[2021-01-14 00:01] VITALS: BP 114/60
[2021-01-14] MEDS: OXYcodone IR 5MG TABLET PO PRN ×3 (01:57→15:19)
[2021-01-14 03:42] LABS: ALBUMIN 2.5 g/dL (3.4-5.0); ANION GAP 4 mmol/L (5-15); CALCIUM 8.5 mg/dL (8.5-10.1); CHLORIDE 87 mmol/L (98-107)
[2021-01-14 03:45] LABS: ALKALINE PHOSPHATASE 69 U/L (45-117); BILIRUBIN,TOTAL 0.1 mg/dL (0.2-1.0); CREATININE 0.66 mg/dL (0.7-1.3); TOTAL PROTEIN 6.4 g/dL (6.4-8.2)
[2021-01-14 03:51] LABS: ALANINE AMINOTRANSFERASE < 6 U/L (12-78)
[2021-01-14] MEDS: OxyconTIN ER 10 MG TAB.ER PO SCH ×2 (05:20→17:27)
[2021-01-14] MEDS: VANCOMYCIN 50 MG/ML ORAL SUSP PO SCH (05:20)
[2021-01-14] MEDS: ALBUTEROL HFA 90 MCG/SPRAY INH SCH ×4 (07:20→20:00)
[2021-01-14] MEDS: FLUTICASONE/VILANTEROL 100-25MCG/INH INH SCH (07:20)
[2021-01-14] MEDS: TIOTROPIUM BROMIDE 18 MCG/INH INH SCH (07:33)
[2021-01-14 08:25] VITALS: BP 117/71
[2021-01-14] MEDS: POLYETHYLENE GLYCOL 17 GM PACKET PO SCH ×3 (09:00→20:23)
[2021-01-14] MEDS: MAGNESIUM OXIDE 400 MG TABLET PO SCH ×2 (09:32→20:23)
[2021-01-14] MEDS: METHADONE 10 MG TABLET PO SCH ×3 (09:32→23:21)
[2021-01-14] MEDS: HYDROCORTISONE 10 MG TABLET PO SCH ×3 (09:32→15:19)
[2021-01-14] MEDS: GABAPENTIN 300 MG CAPSULE PO SCH ×3 (09:32→20:23)
[2021-01-14] MEDS: PANTOPRAZOLE 40MG TABLET PO SCH (09:32)
[2021-01-14] MEDS: BUSPIRONE 5 MG TABLET PO SCH ×3 (09:32→20:23)
[2021-01-14] MEDS: FLUDROCORTISONE 0.1 MG TABLET PO SCH (09:32)
[2021-01-14] MEDS: SENNOSIDES 8.6 MG TABLET PO SCH ×2 (09:33→20:23)
[2021-01-14] MEDS: FUROSEMIDE 20 MG TABLET PO SCH (09:33)
[2021-01-14] MEDS: METOPROLOL TARTRATE 25 MG TAB PO SCH ×2 (09:33→20:22)
[2021-01-14] MEDS: DILTIAZEM 240 MG CAP.ER.24H PO SCH (09:34)
[2021-01-14] MEDS: THIAMINE 100MG TABLET PO/NG SCH (09:34)
[2021-01-14] MEDS: ACETAMINOPHEN 325 MG TABLET PO PRN (13:08)
[2021-01-14 13:33] VITALS: BP 104/67
[2021-01-14] MEDS: LIDODERM 5% PATCH TD PRN (15:18)
[2021-01-14 18:59] VITALS: BP 116/77
[2021-01-14] MEDS: MELATONIN 5 MG TABLET PO SCH (20:22)
[2021-01-14] MEDS: GUAIFENESIN ER 600 MG TABLET PO SCH (20:22)
[2021-01-14] MEDS ORDERED: BUDESONIDE 0.5 MG/2 ML INHA INH SCH (21:00)
[2021-01-15 01:12] VITALS: BP 131/80
[2021-01-15 02:44] LABS: ALBUMIN 2.6 g/dL (3.4-5.0); ANION GAP 3 mmol/L (5-15); CALCIUM 8.7 mg/dL (8.5-10.1); CHLORIDE 90 mmol/L (98-107); CREATININE 0.73 mg/dL (0.7-1.3)
[2021-01-15] MEDS: OxyconTIN ER 10 MG TAB.ER PO SCH ×2 (05:21→16:05)
[2021-01-15 06:33] VITALS: BP 117/69
[2021-01-15] MEDS: ALBUTEROL HFA 90 MCG/SPRAY INH SCH ×4 (06:35→19:23)
[2021-01-15] MEDS: FLUTICASONE/VILANTEROL 100-25MCG/INH INH SCH (06:35)
[2021-01-15] MEDS: TIOTROPIUM BROMIDE 18 MCG/INH INH SCH (06:35)
[2021-01-15] MEDS: METHADONE 10 MG TABLET PO SCH ×3 (07:15→22:17)
[2021-01-15] MEDS: METOPROLOL TARTRATE 25 MG TAB PO SCH ×2 (08:46→20:38)
[2021-01-15] MEDS: SENNOSIDES 8.6 MG TABLET PO SCH ×2 (08:46→20:38)
[2021-01-15] MEDS: GABAPENTIN 300 MG CAPSULE PO SCH ×3 (08:47→20:38)
[2021-01-15] MEDS: FUROSEMIDE 20 MG TABLET PO SCH (08:47)
[2021-01-15] MEDS: THIAMINE 100MG TABLET PO/NG SCH (08:47)
[2021-01-15] MEDS: BUSPIRONE 5 MG TABLET PO SCH ×3 (08:47→20:37)
[2021-01-15] MEDS: MAGNESIUM OXIDE 400 MG TABLET PO SCH ×2 (08:47→20:37)
[2021-01-15] MEDS: GUAIFENESIN ER 600 MG TABLET PO SCH ×2 (08:47→20:38)
[2021-01-15] MEDS: FLUDROCORTISONE 0.1 MG TABLET PO SCH (08:48)
[2021-01-15] MEDS: DILTIAZEM 240 MG CAP.ER.24H PO SCH (08:48)
[2021-01-15] MEDS: HYDROCORTISONE 10 MG TABLET PO SCH ×3 (08:48→16:06)
[2021-01-15] MEDS: POLYETHYLENE GLYCOL 17 GM PACKET PO SCH ×3 (08:48→20:40)
[2021-01-15] MEDS: OXYcodone IR 5MG TABLET PO PRN ×2 (09:02→20:37)
[2021-01-15 12:21] LABS: POTASSIUM,URINE RANDOM 23 mmol/L; SODIUM,URINE RANDOM 26 mmol/L
[2021-01-15 12:22] LABS: MICROSCOPIC INDICATED
[2021-01-15 12:26] LABS: CHLORIDE,URINE RANDOM < 10 mmol/L
[2021-01-15 12:52] VITALS: BP 107/60
[2021-01-15] MEDS ORDERED: MAGNESIUM SULFATE PMX 2GM/50ML 50 ML IV ONE (15:30)
[2021-01-15] MEDS: LIDODERM 5% PATCH TD PRN (16:07)
[2021-01-15 18:52] VITALS: BP 118/79
[2021-01-15] MEDS: MELATONIN 5 MG TABLET PO SCH (20:37)
[2021-01-16 01:38] VITALS: BP 117/73
[2021-01-16] MEDS: METHADONE 10 MG TABLET PO SCH ×2 (05:56→14:18)
[2021-01-16] MEDS: OxyconTIN ER 10 MG TAB.ER PO SCH (05:56)
[2021-01-16 06:44] LABS: ALBUMIN 2.5 g/dL (3.4-5.0); ANION GAP 5 mmol/L (5-15); CALCIUM 8.7 mg/dL (8.5-10.1); CHLORIDE 89 mmol/L (98-107); CREATININE 0.58 mg/dL (0.7-1.3)
[2021-01-16] MEDS: ALBUTEROL HFA 90 MCG/SPRAY INH SCH ×3 (06:50→15:00)
[2021-01-16] MEDS: TIOTROPIUM BROMIDE 18 MCG/INH INH SCH (06:50)
[2021-01-16] MEDS: FLUTICASONE/VILANTEROL 100-25MCG/INH INH SCH (06:50)
[2021-01-16 07:45] LABS: ANION GAP 7 mmol/L (5-15); CALCIUM 8.8 mg/dL (8.5-10.1); CHLORIDE 89 mmol/L (98-107)
[2021-01-16 08:17] VITALS: BP 107/69
[2021-01-16] MEDS: POLYETHYLENE GLYCOL 17 GM PACKET PO SCH (09:00)
[2021-01-16] MEDS: GABAPENTIN 300 MG CAPSULE PO SCH (09:17)
[2021-01-16] MEDS: OXYcodone IR 5MG TABLET PO PRN (09:17)
[2021-01-16] MEDS: MAGNESIUM OXIDE 400 MG TABLET PO SCH (09:17)
[2021-01-16] MEDS: FUROSEMIDE 20 MG TABLET PO SCH (09:17)
[2021-01-16] MEDS: DILTIAZEM 240 MG CAP.ER.24H PO SCH (09:18)
[2021-01-16] MEDS: THIAMINE 100MG TABLET PO/NG SCH (09:18)
[2021-01-16] MEDS: METOPROLOL TARTRATE 25 MG TAB PO SCH (09:18)
[2021-01-16] MEDS: BUSPIRONE 5 MG TABLET PO SCH (09:18)
[2021-01-16] MEDS: FLUDROCORTISONE 0.1 MG TABLET PO SCH (09:19)
[2021-01-16] MEDS: GUAIFENESIN ER 600 MG TABLET PO SCH (09:19)
[2021-01-16] MEDS: HYDROCORTISONE 10 MG TABLET PO SCH ×2 (09:19→12:29)
[2021-01-16] MEDS: SENNOSIDES 8.6 MG TABLET PO SCH (09:20)
[2021-01-16] MEDS ORDERED: CATHFLO-ALTEPLASE 2 MG/2 ML CATHFLUSH ONE (11:00)
[2021-01-16 11:13] LABS: BASOPHILS % (AUTO) 1 % (0-1); EOSINOPHILS % (AUTO) 2 % (1-7); LYMPHOCYTES % (AUTO) 13 % (22-44); MEAN CORPUSCULAR HEMOGLOBIN 26.5 pg (27.5-34.5); MEAN CORPUSCULAR HGB CONC 31.6 g/dL (33.2-36.2); MONOCYTES % (AUTO) 12 % (2-9); NEUTROPHILS % (AUTO) 71 % (42-75); PLATELET COUNT 332 x10^3/uL (130-400); RED BLOOD COUNT 3.27 x10^6/uL (4.38-5.82); RED CELL DISTRIBUTION WIDTH 18.7 % (9.4-14.8)
[2021-01-16 11:16] LABS: MD NO
[2021-01-16] MEDS: ACETAMINOPHEN 325 MG TABLET PO PRN (12:30)
[2021-01-16 13:17] VITALS: BP 102/64
[2021-01-16] MEDS ORDERED: FURO20TA3 PO (14:00)
[2021-01-16] MEDS ORDERED: LIDO700A20 TD (14:00)
[2021-01-16] MEDS ORDERED: GABA300C PO (14:00)
[2021-01-16] MEDS ORDERED: FLUD0.1T PO (14:00)
[2021-01-16] MEDS ORDERED: HYDR10TA PO (14:00)
== END 2021-01-16 15:59 | DRG 392 ==
LOC: ED 15:17 → EDIP 20:26 → 3N 20:42
PROVIDERS: ADMIT Internal Medicine; ATTEND Internal Medicine
DX: K52.9 Noninfective gastroenteritis and colitis, unspecified (principal); D68.69 Other thrombophilia; E27.3 Drug-induced adrenocortical insufficiency; E27.49 Other adrenocortical insufficiency; E46 Unspecified protein-calorie malnutrition; E87.1 Hypo-osmolality and hyponatremia; F11.20 Opioid dependence, uncomplicated; G72.0 Drug-induced myopathy; J96.11 Chronic respiratory failure with hypoxia; J96.12 Chronic respiratory failure with hypercapnia; K56.7 Ileus, unspecified; M48.54XA Collapsed vertebra, not elsewhere classified, thoracic region, initial encounter for fracture; E11.9 Type 2 diabetes mellitus without complications; Z66 Do not resuscitate; E83.42 Hypomagnesemia; E86.0 Dehydration; E87.5 Hyperkalemia; E87.6 Hypokalemia; F17.210 Nicotine dependence, cigarettes, uncomplicated; G89.29 Other chronic pain; I11.0 Hypertensive heart disease with heart failure; I50.9 Heart failure, unspecified; I48.0 Paroxysmal atrial fibrillation; J43.9 Emphysema, unspecified; K59.03 Drug induced constipation; M54.16 Radiculopathy, lumbar region; T40.605A Adverse effect of unspecified narcotics, initial encounter; M81.8 Other osteoporosis without current pathological fracture; R53.81 Other malaise; D63.8 Anemia in other chronic diseases classified elsewhere; Z79.01 Long term (current) use of anticoagulants; Z68.21 Body mass index [BMI] 21.0-21.9, adult; Y92.89 Other specified places as the place of occurrence of the external cause; Z82.49 Family history of ischemic heart disease and other diseases of the circulatory system; Z82.3 Family history of stroke; Z86.718 Personal history of other venous thrombosis and embolism; Z99.81 Dependence on supplemental oxygen; Z90.49 Acquired absence of other specified parts of digestive tract; Z91.013 Allergy to seafood
CPT/HCPCS: 36415; 74018; 89055; 96361; 96374; 96375; 96376; 99285; J3370; 74177; 80048; 80053; 80069; 81001; 81003; 82436; 82533; 83735; 83930; 83935; 84100; 84133; 84300; 85025; 85610; 85730; 87324; 93005; 94640; G0378; J0690; J1940; J2405; Q9967; J2270; J3475; J7030; J7512

== ENCOUNTER 2021-02-08 23:36 | Emergency (ER) | payer MEDICAID ==
[~2021-02-08] VITALS: Ht 190.5 cm; Wt 76.9 kg
[~2021-02-08 23:36] MED LIST changes: +DILT120T3 PO; +FLUD0.1T PO; +FURO20TA3 PO; +HYDR10TA PO; +HYDR50TA99 PO; +LIDO700A20 TD; +METH5TAB2 PO
[2021-02-08 23:46] VITALS: BP 140/90
[2021-02-09] MEDS ORDERED: HYDROmorphone 1 MG/ML, 1ML INJ IM ONE
[2021-02-09] MEDS ORDERED: KETOROLAC 60 MG/2 ML IM ONE
[2021-02-09] MEDS ORDERED: KETOROLAC 60 MG/2 ML ONE (00:13)
[2021-02-09] MEDS ORDERED: HYDROmorphone 1 MG/ML, 1ML INJ ONE (00:13)
== END 2021-02-09 01:23 | disposition home or self-care (01) ==
LOC: ED 02-09 01:19
DX: M51.36 Other intervertebral disc degeneration, lumbar region (principal); M51.34 Other intervertebral disc degeneration, thoracic region; E11.9 Type 2 diabetes mellitus without complications; I50.9 Heart failure, unspecified; I11.0 Hypertensive heart disease with heart failure; I48.91 Unspecified atrial fibrillation; J44.9 Chronic obstructive pulmonary disease, unspecified; R94.31 Abnormal electrocardiogram [ECG] [EKG]
CPT/HCPCS: 93005; 96372; 99284; J1170; J1885

== ENCOUNTER 2021-02-09 20:59 | Inpatient (IN) | payer MEDICAID ==
[~2021-02-09] VITALS: Ht 190.5 cm; Wt 77.2 kg
--- NOTE | 2021-02-09 20:59 | NUR ---
INITIAL PT CONTACT. PT PRESENTS TO ED VIA EMS C/O INCREASING SOB OVER LAST 4 HOURS, "RAN OUT OF MY OXYGEN, I ONLY REMEMBER TO WEAR IT WHEN I CAN BUT SUPPOSED TO BE ON 3L ALL THE TIME, THAT LIKE NEVER HAPPENS". PT GIVEN NEBULIZED TX WITH EMS WITH MINIMAL RELIEF. PT ANXIOUS AND RESTLESS IN ROOM. PT SPEAKING IN 3-4 WORD SENTENCES, RAPID RESPIRATORY RATE AND OCCASIONAL PURSED LIP BREATHING. VITALS STABLE. PT PLACED ON CONTINUOUS CARDIAC AND PULSE OX MONITORING. ERP AT BEDSIDE. AWAITING ORDERS. CALL LIGHT AND BELONGINGS WITHIN REACH.
[2021-02-09] MEDS ORDERED: methylPREDNISolone SOD SUCC 125 MG/2 ML ONE (21:14)
[2021-02-09] MEDS ORDERED: ALBUTEROL/IPRATROPIUM 2.5MG/0.5MG, 3 ML ONE ×2 (21:14→21:56)
[2021-02-09] MEDS ORDERED: methylPREDNISolone SOD SUCC 125 MG/2 ML IV ONE (21:30)
[2021-02-09] MEDS ORDERED: ALBUTEROL/IPRATROPIUM 2.5MG/0.5MG, 3 ML NPPB ONE ×2 (21:30→22:00)
[2021-02-09] MEDS ORDERED: DILTIAZEM 5 MG/ML, 5ML ONE (21:51)
[2021-02-09 21:54] LABS: BASOPHILS % (AUTO) 1 % (0-1); EOSINOPHILS % (AUTO) 0 % (1-7); LYMPHOCYTES % (AUTO) 16 % (22-44); MEAN CORPUSCULAR HGB CONC 31.7 g/dL (33.2-36.2); MEAN PLATELET VOLUME 7.4 fL (7.4-10.4); MONOCYTES % (AUTO) 11 % (2-9); NEUTROPHILS % (AUTO) 73 % (42-75); PLATELET COUNT 331 x10^3/uL (130-400); RED BLOOD COUNT 4.11 x10^6/uL (4.38-5.82); RED CELL DISTRIBUTION WIDTH 17.9 % (9.4-14.8)
[2021-02-09 21:55] LABS: MD NO
[2021-02-09] MEDS ORDERED: DILTIAZEM 5 MG/ML, 5ML IVPush ONE ×2 (22:00→23:30)
[2021-02-09 22:01] LABS: ALANINE AMINOTRANSFERASE 16 U/L (12-78); ALBUMIN 3.4 g/dL (3.4-5.0); ANION GAP 12 mmol/L (5-15); CALCIUM 9.2 mg/dL (8.5-10.1); CHLORIDE 92 mmol/L (98-107); CREATININE 0.74 mg/dL (0.7-1.3)
[2021-02-09 22:19] LABS: ALKALINE PHOSPHATASE 83 U/L (45-117); BILIRUBIN,TOTAL 0.4 mg/dL (0.2-1.0); TOTAL PROTEIN 7.5 g/dL (6.4-8.2); TROPONIN I < 0.015 ng/mL (0.000-0.045)
--- NOTE | 2021-02-09 23:09 | NUR ---
REPORT TO KEISHA LUNA
[2021-02-09] MEDS ORDERED: ALBUTEROL 0.5%, 20ML ONE (23:13)
--- NOTE | 2021-02-09 23:20 | NUR ---
REPORT FROM KOBE LUNA
[2021-02-09] MEDS ORDERED: DEXTROSE 50%, 50ML SYRINGE IVPush ONE (23:30)
[2021-02-09] MEDS ORDERED: ALBUTEROL 0.5%, 20ML NPPB SCH (23:30)
[2021-02-09] MEDS ORDERED: SODIUM CHLORIDE 0.9% 1,000ML IVBOLUS ONE ×2 (23:30)
--- NOTE | 2021-02-09 23:33 | NUR ---
PT TAKES OFF MASK FOR NEB TREATMENT, CONSTANT REMINDER TO KEEP MASK ON, PT WILL REPEAT VERBAL ORDER AND NOT FOLLOW COMMAND. RN NEED TO PLACE MASK ON EVERY TIME FOR PT
--- NOTE | 2021-02-09 23:35 | NUR ---
PT AWARE OF NEEDING UA, UNABLE TO PROVIDE URINE AT THIS TIME
[2021-02-09] MEDS ORDERED: DEXTROSE 50%, 50ML SYRINGE ONE (23:42)
[2021-02-09] MEDS ORDERED: LORazepam 2 MG/ML, 1ML ONE (23:58)
--- NOTE | 2021-02-10 00:01 | NUR ---
DR HERNANDEZ UPDATED ON PT, PT FIDGETY AND RESTLESS IN BED, REFUSING TO FINISH NEB TREATMENT. PT STILL STRUGGLING FOR AIR. VERBAL ORDER TO GIVE 0.5 ATIVAN IV PUSH ONE TIME. VERBAL ORDER REPEATED
--- NOTE | 2021-02-10 00:42 | NUR ---
PT FOUND TRYING TO GET OUT OF BED. ALL HEART MONITORING STICKERS PULLED OFF. PTS OXYGEN NOW 87% RA. PT BREATHING 40 BPM. LAB UNABLE TO DRAW LABS DUE TO PT BEING UNCOOPERATIVE. DR WELLER AND DR HERNANDEZ AT BEDSIDE.
--- NOTE | 2021-02-10 00:44 | NUR ---
REPORT GIVEN TO SHIV LUNA
--- NOTE | 2021-02-10 00:55 | NUR ---
Pt moved to T4 for intubation, pt with accessory muscle use, unable to speak full sentences, o2 sats 88%, pt uncooperative with keeping o2 on. POC intubate. RT here, RSI with etomidate and succ.
--- NOTE | 2021-02-10 01:20 | NUR ---
102: 20mg etomidate 103: 100mg succ Positive RSI, intubation. Confirmation auscultation, end tidal. Vent settings: 20, 440, 5, 80%. Haskins placed via sterile technique. Pt with s/s etoh w/d. 5mg versed IVP verbal ok dr meeks. Soft restraints applied. Lab coming for ABG.
--- NOTE | 2021-02-10 01:28 | NUR ---
Pt HR 150, informed Dr Owusu no further orders am repeating EKG now.
[2021-02-10] MEDS ORDERED: SUCCINYLCHOLINE 20 MG/ML, 10ML IVPush ONE (01:30)
[2021-02-10] MEDS ORDERED: ETOMIDATE 20 MG/10 ML IVPush ONE (01:30)
[2021-02-10] MEDS ORDERED: DILTIAZEM 5 MG/ML, 5ML IVPush PRN (01:30)
[2021-02-10] MEDS ORDERED: ENOXAPARIN 40 MG/0.4 ML SQ SCH (01:30)
[2021-02-10] MEDS ORDERED: ONDANSETRON 2MG/ML, 2ML IVPush PRN (01:30)
--- NOTE | 2021-02-10 01:42 | NUR ---
Verbal order intermittent IVP versed 5mg for etoh w/d. Requested versed drip, for sedation.
[2021-02-10] MEDS: PROPOFOL 100 ML IV PRN ×3 (01:45→11:39)
[2021-02-10] MEDS ORDERED: DILTIAZEM 5 MG/ML, 5ML ONE (01:55)
[2021-02-10] MEDS: MIDAZOLAM HCL 50 MG in SODIUM CHLORIDE 0.9% 40 ML IV PRN ×2 (01:56→11:38)
--- NOTE | 2021-02-10 01:58 | NUR ---
Versed Drip started, Dilt IVP 10mg given for HR 145. Decreased propofol drip 10mcg/kg Report to ICU. RT paged for transport.
[2021-02-10 02:00] LABS: AMPHETAMINE SCREEN, URINE Positive (Negative); BARBITURATE SCREEN, URINE Negative (Negative); BENZODIAZEPINE SCREEN, URINE Negative (Negative); CANNABINOID SCREEN, URINE Negative (Negative); COCAINE SCREEN, URINE Negative (Negative); METHADONE SCREEN, URINE Positive (Negative); OPIATE SCREEN, URINE Negative (Negative)
[2021-02-10] MEDS: APIXABAN 5 MG TABLET PO/NG SCH ×3 (02:00→20:31)
[2021-02-10] MEDS ORDERED: DILTIAZEM 125 MG in SODIUM CHLORIDE 0.9% 100 ML IV PRN (02:00)
[2021-02-10] MEDS ORDERED: SUCCINYLCHOLINE 20 MG/ML, 10ML ONE (02:45)
[2021-02-10] MEDS ORDERED: PROPOFOL 10 MG/ML, 100ML IV ONE (02:45)
[2021-02-10] MEDS ORDERED: MIDAZOLAM 1 MG/ML, 5ML ONE (02:45)
[2021-02-10] MEDS ORDERED: ETOMIDATE 20 MG/10 ML ONE (02:45)
[2021-02-10] MEDS: POTASSIUM CHLORIDE 20 MEQ, MAGNESIUM SULFATE 2 GM, THIAMINE 200 MG, FOLIC ACID 1 MG in ... IV SCH (03:22)
[2021-02-10] MEDS: METOPROLOL TARTRATE 25 MG TAB PO/NG SCH ×3 (03:25→20:31)
[2021-02-10 04:39] LABS: ANION GAP 13 mmol/L (5-15); CALCIUM 8.5 mg/dL (8.5-10.1); CHLORIDE 100 mmol/L (98-107); CREATININE 0.51 mg/dL (0.7-1.3)
[2021-02-10 04:45] LABS: BASOPHILS % (AUTO) 0 % (0-1); EOSINOPHILS % (AUTO) 0 % (1-7); LYMPHOCYTES % (AUTO) 2 % (22-44); MEAN CORPUSCULAR HEMOGLOBIN 25.8 pg (27.5-34.5); MEAN CORPUSCULAR HGB CONC 32.5 g/dL (33.2-36.2); MEAN PLATELET VOLUME 7.5 fL (7.4-10.4); MONOCYTES % (AUTO) 1 % (2-9); NEUTROPHILS % (AUTO) 97 % (42-75); PLATELET COUNT 293 x10^3/uL (130-400); RED BLOOD COUNT 3.49 x10^6/uL (4.38-5.82); RED CELL DISTRIBUTION WIDTH 18.4 % (9.4-14.8)
[2021-02-10 05:01] LABS: MD SCAN
[2021-02-10] MEDS: methylPREDNISolone SOD SUCC 125 MG/2 ML IVPush SCH ×4 (06:06→23:15)
[2021-02-10] MEDS: PANTOPRAZOLE 40 MG IV IVPush SCH (09:32)
[2021-02-10] MEDS: CEFTRIAXONE 1,000 MG in DEXTROSE 5% 50 ML IVPB SCH (09:32)
[2021-02-10] MEDS ORDERED: SENNA 176 MG/5 ML ORAL SOL NG PRN (10:00)
[2021-02-10] MEDS ORDERED: PHARMACY MAY ADJ FOR RENAL FX MC SCH (10:00)
[2021-02-10] MEDS ORDERED: LIDOCAINE-MPF 1%, 2ML ENDO PRN (10:00)
[2021-02-10] MEDS ORDERED: SENNA/DOCUSATE TABLET NG PRN (10:00)
[2021-02-10] MEDS ORDERED: BISACODYL 10 MG SUPP PR PRN (10:00)
[2021-02-10] MEDS ORDERED: MAGNESIUM SULFATE PMX 2GM/50ML 50 ML IV ONE (11:00)
--- NOTE | 2021-02-10 11:43 | NUR ---
TF per RD recs: Promote w/ end goal rate of 75mL/hr (on propofol); 85mL/hr (OFF propofol). Addendum: 02/10/21 at [address] Amended: Links added.
[2021-02-10] MEDS: GABAPENTIN 300 MG CAPSULE PO SCH ×2 (16:40→20:32)
[2021-02-10] MEDS ORDERED: hydrALAzine 20 MG/ML, 1ML IV ONE (23:00)
[2021-02-11] MEDS: MIDAZOLAM HCL 50 MG in SODIUM CHLORIDE 0.9% 40 ML IV PRN ×2 (00:03→05:47)
[2021-02-11] MEDS: POTASSIUM CHLORIDE 20 MEQ, MAGNESIUM SULFATE 2 GM, THIAMINE 200 MG, FOLIC ACID 1 MG in ... IV SCH (01:10)
[2021-02-11 04:26] LABS: BASOPHILS % (AUTO) 0 % (0-1); EOSINOPHILS % (AUTO) 0 % (1-7); LYMPHOCYTES % (AUTO) 5 % (22-44); MEAN CORPUSCULAR HEMOGLOBIN 25.5 pg (27.5-34.5); MEAN CORPUSCULAR HGB CONC 32.8 g/dL (33.2-36.2); MEAN PLATELET VOLUME 7.6 fL (7.4-10.4); MONOCYTES % (AUTO) 3 % (2-9); NEUTROPHILS % (AUTO) 91 % (42-75); PLATELET COUNT 266 x10^3/uL (130-400); RED BLOOD COUNT 3.62 x10^6/uL (4.38-5.82); RED CELL DISTRIBUTION WIDTH 18.5 % (9.4-14.8)
[2021-02-11 04:31] LABS: % IRON SATURATION 7 % (20-55); ANION GAP 8 mmol/L (5-15); CALCIUM 8.9 mg/dL (8.5-10.1); CHLORIDE 102 mmol/L (98-107); CREATININE 0.37 mg/dL (0.7-1.3); IRON LEVEL 16 mcg/dL (65-175); TOTAL IRON BINDING CAPACITY 232 mcg/dL (250-450)
[2021-02-11 04:37] LABS: MD NO
[2021-02-11] MEDS: methylPREDNISolone SOD SUCC 125 MG/2 ML IVPush SCH (05:34)
[2021-02-11] MEDS: PROPOFOL 100 ML IV PRN ×2 (05:35→20:09)
[2021-02-11] MEDS: PANTOPRAZOLE 40 MG IV IVPush SCH (07:55)
[2021-02-11] MEDS: CEFTRIAXONE 1,000 MG in DEXTROSE 5% 50 ML IVPB SCH (07:55)
[2021-02-11] MEDS: METHADONE 10 MG TABLET PO SCH ×2 (07:55→09:00)
[2021-02-11] MEDS: APIXABAN 5 MG TABLET PO/NG SCH ×2 (07:56→19:49)
[2021-02-11] MEDS: GABAPENTIN 300 MG CAPSULE PO SCH ×3 (07:56→19:49)
[2021-02-11] MEDS: METOPROLOL TARTRATE 25 MG TAB PO/NG SCH ×2 (07:56→19:49)
[2021-02-11] MEDS: DIAZEPAM 10 MG TABLET PO SCH ×4 (12:41→22:04)
[2021-02-11] MEDS: methylPREDNISolone SOD SUCC 40 MG/ML IVPush SCH ×2 (12:41→17:49)
[2021-02-11] MEDS: BUSPIRONE 5 MG TABLET PO SCH ×2 (16:30→19:48)
[2021-02-11] MEDS: hydrALAzine 20 MG/ML, 1ML IV PRN (17:49)
[2021-02-11] MEDS ORDERED: LISINOPRIL 5 MG TABLET PO SCH (21:00)
[2021-02-12] MEDS: methylPREDNISolone SOD SUCC 40 MG/ML IVPush SCH ×5 (00:30→23:40)
[2021-02-12] MEDS: PROPOFOL 100 ML IV PRN (01:21)
[2021-02-12] MEDS: POTASSIUM CHLORIDE 20 MEQ, MAGNESIUM SULFATE 2 GM, THIAMINE 200 MG, FOLIC ACID 1 MG in ... IV SCH (02:10)
[2021-02-12] MEDS: hydrALAzine 20 MG/ML, 1ML IV PRN ×2 (03:58→08:39)
[2021-02-12] MEDS: LACTULOSE 20 GM/30 ML UDC NG PRN (03:58)
[2021-02-12 04:26] LABS: BASOPHILS % (AUTO) 0 % (0-1); EOSINOPHILS % (AUTO) 0 % (1-7); LYMPHOCYTES % (AUTO) 5 % (22-44); MEAN CORPUSCULAR HEMOGLOBIN 25.4 pg (27.5-34.5); MEAN CORPUSCULAR HGB CONC 31.9 g/dL (33.2-36.2); MEAN PLATELET VOLUME 7.7 fL (7.4-10.4); MONOCYTES % (AUTO) 3 % (2-9); NEUTROPHILS % (AUTO) 92 % (42-75); PLATELET COUNT 278 x10^3/uL (130-400); RED BLOOD COUNT 3.92 x10^6/uL (4.38-5.82); RED CELL DISTRIBUTION WIDTH 19.1 % (9.4-14.8)
[2021-02-12 04:27] LABS: MD NO
[2021-02-12 04:38] LABS: ANION GAP 5 mmol/L (5-15); CALCIUM 9.2 mg/dL (8.5-10.1); CHLORIDE 104 mmol/L (98-107); CREATININE 0.45 mg/dL (0.7-1.3)
[2021-02-12] MEDS: PANTOPRAZOLE 40 MG IV IVPush SCH (09:41)
[2021-02-12] MEDS: APIXABAN 5 MG TABLET PO/NG SCH ×2 (09:41→20:05)
[2021-02-12] MEDS: METOPROLOL TARTRATE 25 MG TAB PO/NG SCH ×2 (09:41→20:04)
[2021-02-12] MEDS: METHADONE 10 MG TABLET PO SCH (09:42)
[2021-02-12] MEDS: BUSPIRONE 5 MG TABLET PO SCH ×3 (09:42→20:05)
[2021-02-12] MEDS: LISINOPRIL 20 MG TABLET PO SCH ×2 (09:42→20:05)
[2021-02-12] MEDS: GABAPENTIN 300 MG CAPSULE PO SCH ×3 (09:42→20:05)
[2021-02-12] MEDS: DIAZEPAM 10 MG TABLET PO SCH ×3 (09:42→20:05)
[2021-02-12] MEDS: CEFTRIAXONE 1,000 MG in DEXTROSE 5% 50 ML IVPB SCH (09:43)
[2021-02-12] MEDS: TIOTROPIUM BROMIDE 18 MCG/INH INH SCH (11:00)
[2021-02-12] MEDS: FLUTICASONE/VILANTEROL 200-25MCG/INH INH SCH (12:11)
[2021-02-13] MEDS ORDERED: OXYcodone IR 5MG TABLET ONE (01:28)
[2021-02-13] MEDS: OXYcodone IR 5MG TABLET PO PRN ×2 (01:29→17:42)
[2021-02-13 04:58] LABS: BASOPHILS % (AUTO) 0 % (0-1); EOSINOPHILS % (AUTO) 0 % (1-7); LYMPHOCYTES % (AUTO) 6 % (22-44); MEAN CORPUSCULAR HEMOGLOBIN 25.5 pg (27.5-34.5); MEAN CORPUSCULAR HGB CONC 31.9 g/dL (33.2-36.2); MEAN PLATELET VOLUME 7.5 fL (7.4-10.4); MONOCYTES % (AUTO) 4 % (2-9); NEUTROPHILS % (AUTO) 90 % (42-75); PLATELET COUNT 250 x10^3/uL (130-400); RED BLOOD COUNT 3.51 x10^6/uL (4.38-5.82); RED CELL DISTRIBUTION WIDTH 18.7 % (9.4-14.8)
[2021-02-13 05:04] LABS: MD NO
[2021-02-13] MEDS: methylPREDNISolone SOD SUCC 40 MG/ML IVPush SCH ×3 (06:04→20:50)
[2021-02-13 06:41] LABS: ANION GAP 4 mmol/L (5-15); CHLORIDE 106 mmol/L (98-107)
[2021-02-13 06:42] LABS: CREATININE 0.47 mg/dL (0.7-1.3); TRIGLYCERIDES 86 mg/dL (50-200)
[2021-02-13] MEDS: PANTOPRAZOLE 40 MG IV IVPush SCH (07:28)
[2021-02-13] MEDS: METOPROLOL TARTRATE 50 MG TAB PO/NG SCH ×2 (07:29→20:50)
[2021-02-13] MEDS: LISINOPRIL 20 MG TABLET PO SCH ×2 (07:29→20:50)
[2021-02-13] MEDS: METHADONE 10 MG TABLET PO SCH (07:29)
[2021-02-13] MEDS: APIXABAN 5 MG TABLET PO/NG SCH ×2 (07:29→20:51)
[2021-02-13] MEDS: GABAPENTIN 300 MG CAPSULE PO SCH ×3 (07:29→20:51)
[2021-02-13] MEDS: AMLODIPINE 5 MG TABLET PO SCH (07:29)
[2021-02-13] MEDS: BUSPIRONE 5 MG TABLET PO SCH ×3 (07:30→20:51)
[2021-02-13] MEDS: CEFTRIAXONE 1,000 MG in DEXTROSE 5% 50 ML IVPB SCH (07:31)
[2021-02-13] MEDS: FLUTICASONE/VILANTEROL 200-25MCG/INH INH SCH (07:31)
[2021-02-13] MEDS: DIAZEPAM 10 MG TABLET PO SCH ×3 (07:52→20:51)
[2021-02-13] MEDS: TIOTROPIUM BROMIDE 18 MCG/INH INH SCH (09:57)
[2021-02-13 10:47] VITALS: BP 136/83
[2021-02-13] MEDS: LACTULOSE 20 GM/30 ML UDC NG PRN (11:07)
[2021-02-13 12:37] VITALS: BP 154/94
[2021-02-13 18:40] VITALS: BP 152/97
[2021-02-13] MEDS ORDERED: DIAZEPAM 5 MG TABLET ONE (20:42)
[2021-02-13] MEDS: HYDROcodone/APAP 5/325 TABLET PO PRN (20:53)
[2021-02-14 01:25] VITALS: BP 167/90
[2021-02-14] MEDS: methylPREDNISolone SOD SUCC 40 MG/ML IVPush SCH ×4 (02:20→20:10)
[2021-02-14 05:10] LABS: BASOPHILS % (AUTO) 1 % (0-1); EOSINOPHILS % (AUTO) 0 % (1-7); LYMPHOCYTES % (AUTO) 8 % (22-44); MEAN CORPUSCULAR HEMOGLOBIN 25.9 pg (27.5-34.5); MEAN CORPUSCULAR HGB CONC 32.6 g/dL (33.2-36.2); MEAN PLATELET VOLUME 7.5 fL (7.4-10.4); MONOCYTES % (AUTO) 4 % (2-9); NEUTROPHILS % (AUTO) 88 % (42-75); PLATELET COUNT 221 x10^3/uL (130-400); RED BLOOD COUNT 3.71 x10^6/uL (4.38-5.82); RED CELL DISTRIBUTION WIDTH 18.5 % (9.4-14.8)
[2021-02-14 05:12] LABS: MD NO
[2021-02-14 05:17] LABS: ANION GAP 3 mmol/L (5-15); CHLORIDE 102 mmol/L (98-107)
[2021-02-14 05:18] LABS: CREATININE 0.55 mg/dL (0.7-1.3)
[2021-02-14] MEDS: PANTOPRAZOLE 40 MG IV IVPush SCH (07:34)
[2021-02-14] MEDS: CEFTRIAXONE 1,000 MG in DEXTROSE 5% 50 ML IVPB SCH (07:34)
[2021-02-14 07:37] VITALS: BP 170/105
[2021-02-14] MEDS: TIOTROPIUM BROMIDE 18 MCG/INH INH SCH (08:35)
[2021-02-14] MEDS: ALBUTEROL HFA 90 MCG/SPRAY INH PRN (08:35)
[2021-02-14] MEDS: FLUTICASONE/VILANTEROL 200-25MCG/INH INH SCH (08:35)
[2021-02-14] MEDS ORDERED: DIAZEPAM 5 MG TABLET ONE (08:42)
[2021-02-14] MEDS: APIXABAN 5 MG TABLET PO/NG SCH ×2 (08:54→20:12)
[2021-02-14] MEDS: BUSPIRONE 5 MG TABLET PO SCH ×3 (08:54→20:10)
[2021-02-14] MEDS: GABAPENTIN 300 MG CAPSULE PO SCH ×3 (08:54→20:12)
[2021-02-14] MEDS: METHADONE 10 MG TABLET PO SCH (08:54)
[2021-02-14] MEDS: LISINOPRIL 20 MG TABLET PO SCH ×2 (08:54→20:11)
[2021-02-14] MEDS: AMLODIPINE 5 MG TABLET PO SCH (08:55)
[2021-02-14] MEDS: DIAZEPAM 5 MG TABLET PO SCH ×3 (08:55→20:10)
[2021-02-14] MEDS: METOPROLOL TARTRATE 50 MG TAB PO/NG SCH ×2 (08:55→20:11)
[2021-02-14 10:50] VITALS: BP 150/75
[2021-02-14] MEDS: LACTULOSE 20 GM/30 ML UDC NG PRN (11:11)
[2021-02-14 13:25] VITALS: BP 148/85
[2021-02-14] MEDS: OXYcodone IR 5MG TABLET PO PRN (17:20)
[2021-02-14 18:40] VITALS: BP 157/97
[2021-02-15 01:59] VITALS: BP 166/100
[2021-02-15] MEDS: OXYcodone IR 5MG TABLET PO PRN ×4 (02:14→21:20)
[2021-02-15] MEDS: methylPREDNISolone SOD SUCC 40 MG/ML IVPush SCH ×2 (02:20→09:05)
[2021-02-15 05:02] LABS: BASOPHILS % (AUTO) 0 % (0-1); EOSINOPHILS % (AUTO) 0 % (1-7); LYMPHOCYTES % (AUTO) 9 % (22-44); MEAN CORPUSCULAR HEMOGLOBIN 25.7 pg (27.5-34.5); MEAN CORPUSCULAR HGB CONC 32.2 g/dL (33.2-36.2); MEAN PLATELET VOLUME 8.3 fL (7.4-10.4); MONOCYTES % (AUTO) 4 % (2-9); NEUTROPHILS % (AUTO) 87 % (42-75); PLATELET COUNT 192 x10^3/uL (130-400); RED BLOOD COUNT 4.01 x10^6/uL (4.38-5.82); RED CELL DISTRIBUTION WIDTH 18.3 % (9.4-14.8)
[2021-02-15 05:08] LABS: ANION GAP 2 mmol/L (5-15); CALCIUM 8.8 mg/dL (8.5-10.1); CHLORIDE 99 mmol/L (98-107)
[2021-02-15 05:10] LABS: CREATININE 0.56 mg/dL (0.7-1.3)
[2021-02-15 05:35] LABS: MD NO
[2021-02-15 07:18] VITALS: BP 170/98
[2021-02-15] MEDS: FLUTICASONE/VILANTEROL 200-25MCG/INH INH SCH (09:00)
[2021-02-15] MEDS: TIOTROPIUM BROMIDE 18 MCG/INH INH SCH (09:00)
[2021-02-15] MEDS: ALBUTEROL HFA 90 MCG/SPRAY INH PRN (09:00)
[2021-02-15] MEDS: LISINOPRIL 20 MG TABLET PO SCH ×2 (09:05→21:12)
[2021-02-15] MEDS: AMLODIPINE 5 MG TABLET PO SCH (09:05)
[2021-02-15] MEDS: BUSPIRONE 5 MG TABLET PO SCH ×3 (09:05→21:12)
[2021-02-15] MEDS: APIXABAN 5 MG TABLET PO/NG SCH ×2 (09:05→21:12)
[2021-02-15] MEDS: METOPROLOL TARTRATE 50 MG TAB PO/NG SCH ×2 (09:05→21:12)
[2021-02-15] MEDS: DIAZEPAM 5 MG TABLET PO SCH ×3 (09:05→21:12)
[2021-02-15] MEDS: GABAPENTIN 300 MG CAPSULE PO SCH ×3 (09:05→21:11)
[2021-02-15] MEDS: METHADONE 10 MG TABLET PO SCH (09:05)
[2021-02-15] MEDS: PANTOPRAZOLE 40MG TABLET PO SCH (09:05)
[2021-02-15] MEDS: CEFTRIAXONE 1,000 MG in DEXTROSE 5% 50 ML IVPB SCH (09:58)
[2021-02-15] MEDS ORDERED: ALBUTEROL/IPRATROPIUM 2.5MG/0.5MG, 3 ML HHN SCH (12:30)
[2021-02-15] MEDS ORDERED: TIOTROPIUM BROMIDE 18 MCG/INH INH SCH (12:30)
[2021-02-15 13:14] VITALS: BP 140/88
[2021-02-15] MEDS: ALBUTEROL HFA 90 MCG/SPRAY INH SCH ×2 (14:15→20:22)
[2021-02-15 19:10] VITALS: BP 136/88
[2021-02-15] MEDS: GUAIFENESIN ER 600 MG TABLET PO SCH (21:11)
[2021-02-16 00:11] VITALS: BP_SYST 151; BP_DIAS 102; BP_DIAS 90
[2021-02-16] MEDS: ALBUTEROL HFA 90 MCG/SPRAY INH SCH ×4 (03:00→19:06)
[2021-02-16 05:37] LABS: ANION GAP 6 mmol/L (5-15); CALCIUM 8.7 mg/dL (8.5-10.1); CHLORIDE 101 mmol/L (98-107); CREATININE 0.54 mg/dL (0.7-1.3)
[2021-02-16 05:39] LABS: BASOPHILS % (AUTO) 0 % (0-1); EOSINOPHILS % (AUTO) 0 % (1-7); LYMPHOCYTES % (AUTO) 8 % (22-44); MEAN CORPUSCULAR HEMOGLOBIN 25.5 pg (27.5-34.5); MEAN CORPUSCULAR HGB CONC 31.7 g/dL (33.2-36.2); MEAN PLATELET VOLUME 8.1 fL (7.4-10.4); MONOCYTES % (AUTO) 9 % (2-9); NEUTROPHILS % (AUTO) 83 % (42-75); PLATELET COUNT 250 x10^3/uL (130-400); RED BLOOD COUNT 3.94 x10^6/uL (4.38-5.82); RED CELL DISTRIBUTION WIDTH 18.4 % (9.4-14.8)
[2021-02-16 05:52] LABS: MD NO
[2021-02-16 07:04] VITALS: BP 131/85
[2021-02-16] MEDS: FLUTICASONE/VILANTEROL 200-25MCG/INH INH SCH (07:30)
[2021-02-16] MEDS: TIOTROPIUM BROMIDE 18 MCG/INH INH SCH (07:35)
[2021-02-16] MEDS: GABAPENTIN 300 MG CAPSULE PO SCH ×3 (09:23→20:57)
[2021-02-16] MEDS: GUAIFENESIN ER 600 MG TABLET PO SCH ×2 (09:23→20:58)
[2021-02-16] MEDS: METHADONE 10 MG TABLET PO SCH (09:24)
[2021-02-16] MEDS: AMLODIPINE 5 MG TABLET PO SCH (09:24)
[2021-02-16] MEDS: LISINOPRIL 20 MG TABLET PO SCH ×2 (09:24→20:58)
[2021-02-16] MEDS: PANTOPRAZOLE 40MG TABLET PO SCH (09:24)
[2021-02-16] MEDS: BUSPIRONE 5 MG TABLET PO SCH ×3 (09:24→20:57)
[2021-02-16] MEDS: METOPROLOL TARTRATE 50 MG TAB PO/NG SCH ×2 (09:24→20:58)
[2021-02-16] MEDS: DIAZEPAM 5 MG TABLET PO SCH ×3 (09:24→20:57)
[2021-02-16] MEDS: APIXABAN 5 MG TABLET PO/NG SCH ×2 (09:24→20:57)
[2021-02-16] MEDS: CEFTRIAXONE 1,000 MG in DEXTROSE 5% 50 ML IVPB SCH (09:27)
[2021-02-16 12:23] VITALS: BP 136/91
[2021-02-16] MEDS: OXYcodone IR 5MG TABLET PO PRN ×2 (12:23→20:57)
[2021-02-16] MEDS: HYDROcodone/APAP 5/325 TABLET PO PRN (13:50)
[2021-02-16 18:15] VITALS: BP 138/96
[2021-02-17 00:46] VITALS: BP 121/82
[2021-02-17] MEDS: ALBUTEROL HFA 90 MCG/SPRAY INH SCH ×2 (01:08→09:00)
[2021-02-17] MEDS: OXYcodone IR 5MG TABLET PO PRN (04:39)
[2021-02-17 05:41] LABS: BASOPHILS % (AUTO) 0 % (0-1); EOSINOPHILS % (AUTO) 0 % (1-7); LYMPHOCYTES % (AUTO) 10 % (22-44); MEAN CORPUSCULAR HEMOGLOBIN 25.6 pg (27.5-34.5); MEAN CORPUSCULAR HGB CONC 31.4 g/dL (33.2-36.2); MEAN PLATELET VOLUME 8.1 fL (7.4-10.4); MONOCYTES % (AUTO) 10 % (2-9); NEUTROPHILS % (AUTO) 79 % (42-75); PLATELET COUNT 290 x10^3/uL (130-400); RED BLOOD COUNT 4.13 x10^6/uL (4.38-5.82); RED CELL DISTRIBUTION WIDTH 18.7 % (9.4-14.8)
[2021-02-17 05:48] LABS: ANION GAP 6 mmol/L (5-15); CALCIUM 8.3 mg/dL (8.5-10.1); CHLORIDE 102 mmol/L (98-107)
[2021-02-17 05:49] LABS: CREATININE 0.62 mg/dL (0.7-1.3)
[2021-02-17 06:39] LABS: MD SCAN
[2021-02-17 06:46] VITALS: BP 123/69
[2021-02-17] MEDS: PANTOPRAZOLE 40MG TABLET PO SCH (07:32)
[2021-02-17] MEDS: HYDROcodone/APAP 5/325 TABLET PO PRN (07:45)
[2021-02-17] MEDS: CEFTRIAXONE 1,000 MG in DEXTROSE 5% 50 ML IVPB SCH (08:48)
[2021-02-17] MEDS: LISINOPRIL 20 MG TABLET PO SCH (08:56)
[2021-02-17] MEDS: GUAIFENESIN ER 600 MG TABLET PO SCH (08:56)
[2021-02-17] MEDS: APIXABAN 5 MG TABLET PO/NG SCH (08:56)
[2021-02-17] MEDS: AMLODIPINE 5 MG TABLET PO SCH (08:56)
[2021-02-17] MEDS: METHADONE 10 MG TABLET PO SCH (08:57)
[2021-02-17] MEDS: BUSPIRONE 5 MG TABLET PO SCH (08:57)
[2021-02-17] MEDS: DIAZEPAM 5 MG TABLET PO SCH (08:57)
[2021-02-17] MEDS: METOPROLOL TARTRATE 50 MG TAB PO/NG SCH (08:57)
[2021-02-17] MEDS: GABAPENTIN 300 MG CAPSULE PO SCH (08:57)
[2021-02-17] MEDS: TIOTROPIUM BROMIDE 18 MCG/INH INH SCH (09:00)
[2021-02-17] MEDS: FLUTICASONE/VILANTEROL 200-25MCG/INH INH SCH (09:00)
[2021-02-17] MEDS ORDERED: LISI-170 PO (09:42)
[2021-02-17] MEDS ORDERED: PRED10TA PO (09:42)
[2021-02-17] MEDS ORDERED: CALC-787 PO (09:42)
[2021-02-17] MEDS ORDERED: APIX5TAB PO/NG (09:42)
== END 2021-02-17 14:28 | disposition home or self-care (01) | DRG 208 ==
LOC: ED 21:29 → EDIP 23:57 → ICU 02-10 02:18 → 4NW 02-13 10:45 → DCLOUNGE 02-17 14:15
PROVIDERS: ADMIT Family Medicine; ATTEND Internal Medicine
PROC: 5A1945Z Respiratory Ventilation, 24-96 Consecutive Hours (ICD-10-PCS; principal; 2021-02-10)
PROC: 0BH17EZ Insertion of Endotracheal Airway into Trachea, Via Natural or Artificial Opening (ICD-10-PCS; 2021-02-10)
DX: J96.21 Acute and chronic respiratory failure with hypoxia (principal); G92 Toxic encephalopathy; D68.69 Other thrombophilia; E87.1 Hypo-osmolality and hyponatremia; E87.2 Acidosis; F11.20 Opioid dependence, uncomplicated; I50.42 Chronic combined systolic (congestive) and diastolic (congestive) heart failure; J98.11 Atelectasis; R78.81 Bacteremia; Z99.11 Dependence on respirator [ventilator] status; D50.9 Iron deficiency anemia, unspecified; J96.22 Acute and chronic respiratory failure with hypercapnia; D72.829 Elevated white blood cell count, unspecified; E16.2 Hypoglycemia, unspecified; E83.42 Hypomagnesemia; F41.9 Anxiety disorder, unspecified; G89.29 Other chronic pain; I11.0 Hypertensive heart disease with heart failure; I48.0 Paroxysmal atrial fibrillation; J43.9 Emphysema, unspecified; K59.03 Drug induced constipation; M81.8 Other osteoporosis without current pathological fracture; T38.0X5A Adverse effect of glucocorticoids and synthetic analogues, initial encounter; B95.61 Methicillin susceptible Staphylococcus aureus infection as the cause of diseases classified elsewhere; M54.9 Dorsalgia, unspecified; R00.0 Tachycardia, unspecified; Z79.01 Long term (current) use of anticoagulants; Z79.52 Long term (current) use of systemic steroids; Z99.81 Dependence on supplemental oxygen; Z90.49 Acquired absence of other specified parts of digestive tract
CPT/HCPCS: 31500; 36415; 36600; 96374; 96375; 99291; J7042; 71045; 80048; 80053; 80307; 80320; 82728; 82803; 82962; 83540; 83550; 83735; 83880; 84100; 84443; 84478; 84484; 85025; 87070; 87081; 87205; 93005; 94002; 94003; 94640; G0378; J0696; J2250; J2704; J3411; J3475; J3480; J7509; C9113; G0480; J0330; J0360; J2920; J2930; J7030

== ENCOUNTER 2021-02-17 22:11 | Inpatient (IN) | payer MEDICAID ==
[~2021-02-17] VITALS: Ht 185.4 cm; Wt 79.6 kg
[~2021-02-17 22:11] MED LIST changes: +APIX5TAB PO/NG; +CALC-787 PO
--- NOTE | 2021-02-17 22:19 | NUR ---
PT BIB [facility] TO ROOM 4, PT ON O2 NC PER HOME AT 2LPM. PT WITH RESPIRATORY DISTRESS AND DIFFICULT BREATHING, STATES THAT'S HOW IT NORMALLY IS. PT WITH OCCASIONAL COUGH. PA TO BEDSIDE TO EVAL PT. PT ON CR MONITOR, SIDERAILS UP X2 AND CALL LIGHT WITHIN REACH.
[2021-02-17] MEDS ORDERED: ALBUTEROL/IPRATROPIUM 2.5MG/0.5MG, 3 ML NPPB PRN (22:30)
[2021-02-17] MEDS ORDERED: MORPHINE SULFATE 4 MG/ML, 1ML IVPush PRN (22:30)
[2021-02-17] MEDS ORDERED: methylPREDNISolone SOD SUCC 125 MG/2 ML IVPush ONE (22:30)
[2021-02-17] MEDS ORDERED: SODIUM CHLORIDE FLUSH 10ML SYR IVF ONE (22:30)
[2021-02-17] MEDS ORDERED: ONDANSETRON 2MG/ML, 2ML IVPush ONE (22:30)
[2021-02-17] MEDS ORDERED: MORPHINE SULFATE 4 MG/ML, 1ML ONE (22:35)
[2021-02-17] MEDS ORDERED: ALBUTEROL/IPRATROPIUM 2.5MG/0.5MG, 3 ML ONE (22:35)
[2021-02-17] MEDS ORDERED: methylPREDNISolone SOD SUCC 125 MG/2 ML ONE (22:35)
[2021-02-17] MEDS ORDERED: ONDANSETRON 2MG/ML, 2ML ONE (22:35)
[2021-02-17 22:58] LABS: BASOPHILS % (AUTO) 1 % (0-1); EOSINOPHILS % (AUTO) 0 % (1-7); LYMPHOCYTES % (AUTO) 9 % (22-44); MEAN CORPUSCULAR HEMOGLOBIN 26.3 pg (27.5-34.5); MEAN CORPUSCULAR HGB CONC 32.2 g/dL (33.2-36.2); MEAN PLATELET VOLUME 7.7 fL (7.4-10.4); MONOCYTES % (AUTO) 9 % (2-9); NEUTROPHILS % (AUTO) 80 % (42-75); PLATELET COUNT 299 x10^3/uL (130-400); RED BLOOD COUNT 4.27 x10^6/uL (4.38-5.82)
[2021-02-17 23:07] LABS: ALANINE AMINOTRANSFERASE 94 U/L (12-78); ANION GAP 8 mmol/L (5-15); CALCIUM 8.7 mg/dL (8.5-10.1); CHLORIDE 101 mmol/L (98-107); CREATININE 0.49 mg/dL (0.7-1.3)
[2021-02-17 23:11] LABS: ALKALINE PHOSPHATASE 102 U/L (45-117); BILIRUBIN,TOTAL 0.1 mg/dL (0.2-1.0); TOTAL PROTEIN 6.5 g/dL (6.4-8.2); TROPONIN I < 0.015 ng/mL (0.000-0.045)
--- NOTE | 2021-02-17 23:20 | NUR ---
PIV START ATTEMPTED 3 TIMES, UNSUCCESFUL. RN TO BEDSIDE TO DO ULTRASOUND IV. PLACED 18G PIV TO LEFT FOREARM, POSITIVE BLOOD RETURN, AND SECURED AND FLUSHED EASILY, AND NO REDNESS OR SWELLING NOTED. PT TOLERATED WELL. PT WITH SIDERAILS UP X2, AND CALL LIGHT WITHIN REACH. MEDICATIONS ADMINISTERED.
[2021-02-17] MEDS ORDERED: AZITHROMYCIN 500 MG in SODIUM CHLORIDE 0.9% 250 ML IV ONE (23:30)
[2021-02-17] MEDS ORDERED: CEFTRIAXONE 1,000 MG in DEXTROSE 5% 50 ML IVPB ONE (23:30)
[2021-02-17 23:32] LABS: MD SCAN
--- NOTE | 2021-02-17 23:45 | NUR ---
antibiotics started, pt calm and cooperative, respiratory effort has improved, no longer using accesory muscles, easy respirations, o2 sats 97% on 2 lpm NC. pt calm, and resting. to be admitted. field laborer to bedside to draw blood cultures before antibiotics started.
[2021-02-18] MEDS ORDERED: ENALAPRILAT 1.25 MG/ML, 2ML IVPush PRN (00:30)
[2021-02-18] MEDS ORDERED: SODIUM CHLORIDE 0.9% 1,000ML IVBOLUS ONE (00:30)
[2021-02-18] MEDS ORDERED: ONDANSETRON 2MG/ML, 2ML IVPush PRN (00:30)
--- NOTE | 2021-02-18 00:46 | NUR ---
REPORT CALLED TO FLOOR RN, AND PT TAKEN TO CT SCAN FIRST TO COMPLETE A CTA, AND THEN PT WILL GO TO THE FLOOR. SANDWICH PROVIDED TO PT HE'S AN ADMISSION AND HADN'T EATEN.
[2021-02-18] MEDS: HYDROcodone/APAP 5/325 TABLET PO PRN ×2 (01:58→12:11)
[2021-02-18 02:03] LABS: TROPONIN I < 0.015 ng/mL (0.000-0.045)
[2021-02-18] MEDS ORDERED: OMNIPAQUE 350 MG/ML, 100ML BOTTLE ONE (02:35)
[2021-02-18] MEDS ORDERED: VANCOMYCIN PER PHARMACY MC PRN (03:30)
[2021-02-18] MEDS ORDERED: PHARMACOKINETIC CONSULTATION MC ONE (04:00)
[2021-02-18] MEDS ORDERED: VANCOMYCIN 2,000 MG in SODIUM CHLORIDE 0.9% 500 ML IV ONE (04:00)
[2021-02-18] MEDS ORDERED: PHARMACOKINETIC MONITORING MC PRN (04:00)
[2021-02-18] MEDS: PIPERACILLIN/TAZO 4.5 GM in DEXTROSE 5% 100 ML IVPB SCH ×4 (04:31→21:22)
[2021-02-18 06:07] VITALS: BP 117/51
[2021-02-18 07:00] VITALS: BP 115/74
[2021-02-18] MEDS: ALBUTEROL HFA 90 MCG/SPRAY INH SCH ×4 (07:35→19:21)
[2021-02-18] MEDS: FLUTICASONE/VILANTEROL 100-25MCG/INH INH SCH (07:39)
[2021-02-18 07:44] LABS: TROPONIN I < 0.015 ng/mL (0.000-0.045)
[2021-02-18] MEDS ORDERED: LISINOPRIL 20 MG TABLET PO SCH (09:00)
[2021-02-18] MEDS ORDERED: FLUTICASONE/VILANTEROL 200-25MCG/INH INH SCH (09:00)
[2021-02-18] MEDS ORDERED: METOPROLOL TARTRATE 25 MG TAB PO SCH (09:00)
[2021-02-18] MEDS: TIOTROPIUM BROMIDE 18 MCG/INH INH SCH (09:00)
[2021-02-18] MEDS ORDERED: TIOTROPIUM BROMIDE 18 MCG/INH INH SCH (09:00)
[2021-02-18] MEDS: APIXABAN 5 MG TABLET PO/NG SCH ×2 (09:50→21:23)
[2021-02-18] MEDS: METHADONE 10 MG TABLET PO SCH (09:50)
[2021-02-18] MEDS: BUSPIRONE 5 MG TABLET PO SCH ×3 (09:50→21:22)
[2021-02-18] MEDS: PANTOPRAZOLE 40MG TABLET PO SCH (09:51)
[2021-02-18] MEDS: GABAPENTIN 300 MG CAPSULE PO SCH ×3 (09:51→21:23)
[2021-02-18 12:45] VITALS: BP 135/85
[2021-02-18] MEDS: VANCOMYCIN 1,600 MG in SODIUM CHLORIDE 0.9% 250 ML IV SCH (17:08)
[2021-02-18 20:19] VITALS: BP 135/85
[2021-02-18] MEDS: METOPROLOL TARTRATE 25 MG TAB PO SCH (21:22)
[2021-02-18] MEDS: LISINOPRIL 20 MG TABLET PO SCH (21:23)
[2021-02-19 01:18] VITALS: BP 144/83
[2021-02-19] MEDS: PIPERACILLIN/TAZO 4.5 GM in DEXTROSE 5% 100 ML IVPB SCH ×4 (03:26→22:24)
[2021-02-19] MEDS: HYDROcodone/APAP 5/325 TABLET PO PRN ×3 (04:15→22:26)
[2021-02-19 04:24] LABS: MICROSCOPIC NOT IND
[2021-02-19] MEDS ORDERED: ALBUTEROL HFA 90 MCG/SPRAY INH PRN (05:00)
[2021-02-19 05:21] LABS: CHLORIDE 103 mmol/L (98-107)
[2021-02-19 05:23] LABS: BASOPHILS % (AUTO) 0 % (0-1); EOSINOPHILS % (AUTO) 0 % (1-7); LYMPHOCYTES % (AUTO) 10 % (22-44); MEAN CORPUSCULAR HEMOGLOBIN 25.6 pg (27.5-34.5); MEAN CORPUSCULAR HGB CONC 31.8 g/dL (33.2-36.2); MEAN PLATELET VOLUME 7.8 fL (7.4-10.4); MONOCYTES % (AUTO) 9 % (2-9); NEUTROPHILS % (AUTO) 81 % (42-75); PLATELET COUNT 263 x10^3/uL (130-400); RED BLOOD COUNT 3.61 x10^6/uL (4.38-5.82); RED CELL DISTRIBUTION WIDTH 19.3 % (9.4-14.8)
[2021-02-19 05:25] LABS: MD NO
[2021-02-19 05:26] LABS: ALANINE AMINOTRANSFERASE 60 U/L (12-78); ALBUMIN 2.5 g/dL (3.4-5.0); ALKALINE PHOSPHATASE 88 U/L (45-117); ANION GAP 5 mmol/L (5-15); BILIRUBIN,TOTAL 0.2 mg/dL (0.2-1.0); CALCIUM 8.2 mg/dL (8.5-10.1); TOTAL PROTEIN 5.3 g/dL (6.4-8.2)
[2021-02-19 06:57] VITALS: BP 155/91
[2021-02-19] MEDS: ALBUTEROL HFA 90 MCG/SPRAY INH SCH ×5 (07:55→19:00)
[2021-02-19] MEDS: FLUTICASONE/VILANTEROL 100-25MCG/INH INH SCH ×2 (07:55→11:10)
[2021-02-19] MEDS: TIOTROPIUM BROMIDE 18 MCG/INH INH SCH ×2 (07:55→11:10)
[2021-02-19] MEDS: PANTOPRAZOLE 40MG TABLET PO SCH (08:56)
[2021-02-19] MEDS: GABAPENTIN 300 MG CAPSULE PO SCH ×3 (08:57→22:25)
[2021-02-19] MEDS: METHADONE 10 MG TABLET PO SCH (08:57)
[2021-02-19] MEDS: BUSPIRONE 5 MG TABLET PO SCH ×3 (08:58→22:26)
[2021-02-19] MEDS: APIXABAN 5 MG TABLET PO/NG SCH ×2 (08:58→22:25)
[2021-02-19] MEDS: METOPROLOL TARTRATE 25 MG TAB PO SCH ×2 (08:58→22:25)
[2021-02-19] MEDS: LISINOPRIL 20 MG TABLET PO SCH ×2 (08:58→22:25)
[2021-02-19] MEDS: VANCOMYCIN 1,600 MG in SODIUM CHLORIDE 0.9% 250 ML IV SCH (11:27)
[2021-02-19 12:49] VITALS: BP 137/87
[2021-02-19] MEDS ORDERED: POTASSIUM CHLORIDE 20 MEQ TAB.ER.PRT PO ONE (18:00)
[2021-02-19] MEDS ORDERED: FUROSEMIDE 20 MG/2 ML IV ONE (18:00)
[2021-02-19 18:59] VITALS: BP 164/92
[2021-02-20 01:38] VITALS: BP 131/87
[2021-02-20] MEDS: HYDROcodone/APAP 5/325 TABLET PO PRN ×3 (02:29→19:19)
[2021-02-20] MEDS: PIPERACILLIN/TAZO 4.5 GM in DEXTROSE 5% 100 ML IVPB SCH (03:27)
[2021-02-20] MEDS: VANCOMYCIN 1,600 MG in SODIUM CHLORIDE 0.9% 250 ML IV SCH (05:05)
[2021-02-20] MEDS: ALBUTEROL HFA 90 MCG/SPRAY INH SCH ×5 (05:24→20:15)
[2021-02-20 05:29] LABS: MEAN CORPUSCULAR HEMOGLOBIN 25.5 pg (27.5-34.5); MEAN CORPUSCULAR HGB CONC 31.4 g/dL (33.2-36.2); MEAN PLATELET VOLUME 7.6 fL (7.4-10.4); PLATELET COUNT 264 x10^3/uL (130-400); RED BLOOD COUNT 3.64 x10^6/uL (4.38-5.82); RED CELL DISTRIBUTION WIDTH 18.8 % (9.4-14.8)
[2021-02-20 05:40] LABS: ANION GAP 4 mmol/L (5-15); CALCIUM 8.6 mg/dL (8.5-10.1); CHLORIDE 102 mmol/L (98-107); CREATININE 0.52 mg/dL (0.7-1.3)
[2021-02-20 06:13] LABS: MD YES
[2021-02-20 06:14] LABS: LYMPH#(MANUAL) 1.77 x10^3/uL (1-3.4); LYMPHS% (MANUAL) 13 % (22-44); MONOS#(MANUAL) 0.95 x10^3/uL (0.3-2.7); MONOS% (MANUAL) 7 % (2-9); SEG#(MANUAL) 10.88 x10^3/uL (1.8-6.8); SEGS% (MANUAL) 80 % (42-75)
[2021-02-20 06:15] LABS: <PLATELET ESTIMATE> ADEQUATE; <PLT MORPHOLOGY> NORMAL PLT MORPH; ANISOCYTOSIS 1+; HYPOCHROMIA 1+; OVALOCYTES 1+
[2021-02-20 06:16] LABS: MICROCYTOSIS 1+
[2021-02-20] MEDS: TIOTROPIUM BROMIDE 18 MCG/INH INH SCH (07:24)
[2021-02-20] MEDS: FLUTICASONE/VILANTEROL 100-25MCG/INH INH SCH (07:24)
[2021-02-20 07:32] VITALS: BP 135/88
[2021-02-20] MEDS: BUSPIRONE 5 MG TABLET PO SCH ×3 (09:03→20:16)
[2021-02-20] MEDS: LISINOPRIL 20 MG TABLET PO SCH ×2 (09:04→20:16)
[2021-02-20] MEDS: GABAPENTIN 300 MG CAPSULE PO SCH ×3 (09:04→20:15)
[2021-02-20] MEDS: APIXABAN 5 MG TABLET PO/NG SCH ×2 (09:05→20:15)
[2021-02-20] MEDS: METHADONE 10 MG TABLET PO SCH (09:05)
[2021-02-20] MEDS: METOPROLOL TARTRATE 25 MG TAB PO SCH ×2 (09:05→20:16)
[2021-02-20] MEDS: PANTOPRAZOLE 40MG TABLET PO SCH (09:06)
[2021-02-20 15:22] VITALS: BP 145/92
[2021-02-20 19:27] VITALS: BP 155/89
[2021-02-21] MEDS: HYDROcodone/APAP 5/325 TABLET PO PRN ×3 (00:59→13:34)
[2021-02-21 01:03] VITALS: BP 158/90
[2021-02-21 05:03] LABS: BASOPHILS % (AUTO) 1 % (0-1); EOSINOPHILS % (AUTO) 0 % (1-7); LYMPHOCYTES % (AUTO) 11 % (22-44); MEAN CORPUSCULAR HEMOGLOBIN 25.2 pg (27.5-34.5); MEAN CORPUSCULAR HGB CONC 30.6 g/dL (33.2-36.2); MEAN PLATELET VOLUME 7.6 fL (7.4-10.4); MONOCYTES % (AUTO) 8 % (2-9); NEUTROPHILS % (AUTO) 81 % (42-75); PLATELET COUNT 261 x10^3/uL (130-400); RED CELL DISTRIBUTION WIDTH 19.5 % (9.4-14.8)
[2021-02-21 05:16] LABS: ANION GAP 3 mmol/L (5-15); CALCIUM 8.4 mg/dL (8.5-10.1); CHLORIDE 102 mmol/L (98-107)
[2021-02-21] MEDS: ALBUTEROL HFA 90 MCG/SPRAY INH SCH ×2 (06:00→10:23)
[2021-02-21 06:23] LABS: MD SCAN
[2021-02-21] MEDS: FLUTICASONE/VILANTEROL 100-25MCG/INH INH SCH (07:15)
[2021-02-21] MEDS: LISINOPRIL 20 MG TABLET PO SCH (07:55)
[2021-02-21] MEDS: GABAPENTIN 300 MG CAPSULE PO SCH (07:55)
[2021-02-21] MEDS: APIXABAN 5 MG TABLET PO/NG SCH (07:56)
[2021-02-21] MEDS: PANTOPRAZOLE 40MG TABLET PO SCH (07:56)
[2021-02-21] MEDS: METOPROLOL TARTRATE 25 MG TAB PO SCH (07:56)
[2021-02-21] MEDS: METHADONE 10 MG TABLET PO SCH (07:56)
[2021-02-21] MEDS: BUSPIRONE 5 MG TABLET PO SCH (07:56)
[2021-02-21 08:07] VITALS: BP 163/90
[2021-02-21] MEDS: TIOTROPIUM BROMIDE 18 MCG/INH INH SCH (08:25)
[2021-02-21] MEDS ORDERED: PRED10TA PO (11:08)
[2021-02-21 13:00] VITALS: BP 156/65
== END 2021-02-21 14:00 | disposition home or self-care (01) | DRG 190 ==
LOC: ED 23:07 → EDIP 23:47 → 4WST 02-18 01:19
PROVIDERS: ADMIT Family Medicine; ATTEND Internal Medicine
DX: J43.9 Emphysema, unspecified (principal); J96.21 Acute and chronic respiratory failure with hypoxia; D68.69 Other thrombophilia; E87.2 Acidosis; I50.22 Chronic systolic (congestive) heart failure; M48.54XA Collapsed vertebra, not elsewhere classified, thoracic region, initial encounter for fracture; D63.8 Anemia in other chronic diseases classified elsewhere; D72.829 Elevated white blood cell count, unspecified; E11.9 Type 2 diabetes mellitus without complications; F17.200 Nicotine dependence, unspecified, uncomplicated; F41.9 Anxiety disorder, unspecified; G89.29 Other chronic pain; I11.0 Hypertensive heart disease with heart failure; K70.9 Alcoholic liver disease, unspecified; T38.0X5A Adverse effect of glucocorticoids and synthetic analogues, initial encounter; Z59.0 Homelessness; Z79.01 Long term (current) use of anticoagulants; Z91.19 Patient's noncompliance with other medical treatment and regimen; Z91.013 Allergy to seafood; Z91.018 Allergy to other foods; I48.0 Paroxysmal atrial fibrillation; Z90.49 Acquired absence of other specified parts of digestive tract; Z82.49 Family history of ischemic heart disease and other diseases of the circulatory system; Z82.3 Family history of stroke; Z86.718 Personal history of other venous thrombosis and embolism
CPT/HCPCS: 36415; 36600; 71045; 71275; 80048; 80053; 81003; 82803; 83605; 83880; 84145; 84484; 85025; 87040; 93005; 94640; 96374; 96375; G0378; J0456; J0696; J2405; J2543; J3370; Q9967; J1940; J2270; J2930; J7040; J7050; J7512

== ENCOUNTER 2021-02-22 21:51 | Inpatient (IN) | payer MEDICAID ==
[~2021-02-22] VITALS: Ht 177.8 cm; Wt 80.1 kg
--- NOTE | 2021-02-22 21:55 | NUR ---
PT BIB [facility] FROM [place] WHERE BYSTANDER CALLED 911 BECAUSE PT WAS C/O BACK PAIN AND SOB. EMS FOUND PT WHEEZING WITH SPO2 IN 80s ON RA, IMPROVED TO HIGH 90s AFTER ALBUTEROL/DUONEB TX AND 2L O2 NC. OTHER VS PER EMS: 90/60, HR 140s ST. PT HAS HX OF COPD AND BLOOD THINNER USE PER EMS. PT REPORTS +ETOH USE TODAY. REPORTS SOME CHEST PAIN. ARRIVES TO ED IN RESPIRATORY DISTRESS, USING ACCESSORY MUSCLES. SWEARING AT STAFF, "DON'T TOUCH ME! THIS IS BULLSHIT!" EKG DONE AT BS IMMEDIATELY.
[2021-02-22] MEDS ORDERED: ALBUTEROL/IPRATROPIUM 2.5MG/0.5MG, 3 ML NPPB ONE (22:00)
[2021-02-22] MEDS ORDERED: methylPREDNISolone SOD SUCC 125 MG/2 ML IV ONE (22:00)
--- NOTE | 2021-02-22 22:30 | NUR ---
Report received from JEREMY Hastings. This RN to assume care. Patient prepped for intubation.
--- NOTE | 2021-02-22 22:34 | NUR ---
PT MOVED TO TRAUMA 4 FOR CONTINUED CARE. REPORTED TO VICTOR MANUEL LUNA.
[2021-02-22 22:36] LABS: MEAN CORPUSCULAR HEMOGLOBIN 25.2 pg (27.5-34.5); MEAN CORPUSCULAR HGB CONC 31.1 g/dL (33.2-36.2); MEAN PLATELET VOLUME 7.4 fL (7.4-10.4); PLATELET COUNT 316 x10^3/uL (130-400); RED BLOOD COUNT 4.07 x10^6/uL (4.38-5.82); RED CELL DISTRIBUTION WIDTH 19.6 % (9.4-14.8)
[2021-02-22 22:43] LABS: MD YES
[2021-02-22 22:48] LABS: ALANINE AMINOTRANSFERASE 105 U/L (12-78); ALBUMIN 3.1 g/dL (3.4-5.0); ANION GAP 8 mmol/L (5-15); CALCIUM 8.5 mg/dL (8.5-10.1); CHLORIDE 100 mmol/L (98-107); CREATININE 0.74 mg/dL (0.7-1.3)
[2021-02-22 22:51] LABS: ALKALINE PHOSPHATASE 116 U/L (45-117); BILIRUBIN,TOTAL 0.3 mg/dL (0.2-1.0); TOTAL PROTEIN 6.3 g/dL (6.4-8.2); TROPONIN I 0.018 ng/mL (0.000-0.045)
[2021-02-22] MEDS ORDERED: methylPREDNISolone SOD SUCC 125 MG/2 ML ONE (22:52)
[2021-02-22] MEDS ORDERED: AZITHROMYCIN 500 MG in SODIUM CHLORIDE 0.9% 250 ML IVPB ONE (23:00)
[2021-02-22] MEDS ORDERED: SODIUM CHLORIDE 0.9% 1,000ML IVBOLUS ONE (23:00)
[2021-02-22] MEDS ORDERED: CEFTRIAXONE 1,000 MG in DEXTROSE 5% 50 ML IVPB ONE (23:00)
[2021-02-22 23:06] LABS: LYMPH#(MANUAL) 3.93 x10^3/uL (1-3.4); LYMPHS% (MANUAL) 15 % (22-44); MONOS#(MANUAL) 1.05 x10^3/uL (0.3-2.7); MONOS% (MANUAL) 4 % (2-9); SEG#(MANUAL) 21.22 x10^3/uL (1.8-6.8); SEGS% (MANUAL) 81 % (42-75)
[2021-02-22 23:07] LABS: ANISOCYTOSIS 1+; MICROCYTOSIS 1+; OVALOCYTES 1+
[2021-02-22 23:08] LABS: <PLATELET ESTIMATE> ADEQUATE; <PLT MORPHOLOGY> NORMAL PLT MORPH; HYPOCHROMIA 1+; POLYCHROMASIA 1+
[2021-02-22] MEDS ORDERED: ALBUTEROL/IPRATROPIUM 2.5MG/0.5MG, 3 ML ONE (23:29)
[2021-02-22] MEDS ORDERED: ETOMIDATE 20 MG/10 ML IV ONE (23:30)
[2021-02-22] MEDS ORDERED: NOREPINEPHRINE 8 MG in SODIUM CHLORIDE 0.9% 242 ML IV PRN (23:30)
[2021-02-22] MEDS ORDERED: ROCURONIUM 10 MG/ML,10ML IVPush ONE (23:30)
[2021-02-22] MEDS ORDERED: MIDAZOLAM 1 MG/ML, 2ML IVPush ONE (23:30)
--- NOTE | 2021-02-22 23:30 | NUR ---
Note kristofer in [facility] - 02/23/21 at 0049 by [email or web address] Report received from JEREMY Hastings. This RN to assume care. Patient prepped for intubation.
[2021-02-22] MEDS ORDERED: FENTANYL PF 100 MCG/2ML ONE (23:46)
--- NOTE | 2021-02-23 | NUR ---
Patient intubated by MD Antoinette. Events as follows: 2236 - 20mg Etomidate, 90 mg Rocuronium 2240 - 7.5 ETT established, 25cm at the lips 2242 - 4mg Versed 2250 - Propofol infusion initiated 2256 - Triple lumen central line established; right IJ 2310 - Levophed infusion initiated 2332 - 16f OG tube inserted 2338 - 16f mckenzie catheter inserted 2350 - 100mcg Fentanyl Patient tolerating meds/tube well.
--- NOTE | 2021-02-23 00:18 | NUR ---
Took patient to CT.
[2021-02-23] MEDS ORDERED: OMNIPAQUE 350 MG/ML, 75ML BOTTLE ONE (00:21)
[2021-02-23] MEDS ORDERED: PROPOFOL 100 ML IV PRN (00:30)
[2021-02-23] MEDS ORDERED: FENTANYL PF 100 MCG/2ML IVPush ONE (00:30)
--- NOTE | 2021-02-23 00:43 | NUR ---
Attempted to titrate patient off of Levophed due to MAP being >100. Patient unable to sustain MAP >65 without Levophed. Resumed med per dec.
[2021-02-23] MEDS ORDERED: SODIUM CHLORIDE 0.9% 1,000ML IVBOLUS ONE (01:00)
[2021-02-23] MEDS ORDERED: BISACODYL 10 MG SUPP PR PRN ×2 (01:30→02:00)
[2021-02-23] MEDS ORDERED: ONDANSETRON 2MG/ML, 2ML IVPB PRN (01:30)
[2021-02-23] MEDS ORDERED: VANCOMYCIN PER PHARMACY MC PRN ×2 (01:30→15:00)
[2021-02-23] MEDS ORDERED: PHARMACY MAY ADJ FOR RENAL FX MC PRN ×2 (01:30)
[2021-02-23] MEDS ORDERED: SODIUM CHLORIDE 0.9% 1,000 ML IV SCH (01:30)
[2021-02-23] MEDS ORDERED: PROMETHAZINE 25 MG/ML, 1ML IM PRN (01:30)
--- NOTE | 2021-02-23 01:33 | NUR ---
Spoke with endoscopy nurse. Patient MAP remains >105. Director Traffic And Planning states she is okay with MAP being >60. Holding Levophed at this time.
--- NOTE | 2021-02-23 01:54 | NUR ---
Readjusted Levophed to a lower dose to maintain BP.
--- NOTE | 2021-02-23 01:55 | NUR ---
Report given to JEREMY Ward. Patient to be transferred to room 542.
[2021-02-23] MEDS ORDERED: LACTULOSE 20 GM/30 ML UDC NG PRN (02:00)
[2021-02-23] MEDS: ALBUTEROL/IPRATROPIUM 2.5MG/0.5MG, 3 ML INLINE SCH ×4 (02:00→14:41)
[2021-02-23] MEDS ORDERED: SENNA 176 MG/5 ML ORAL SOL NG PRN (02:00)
[2021-02-23] MEDS ORDERED: NOREPINEPHRINE 8 MG in SODIUM CHLORIDE 0.9% 242 ML IV PRN (02:00)
[2021-02-23] MEDS ORDERED: PHARMACY MAY ADJ FOR RENAL FX MC SCH (02:00)
[2021-02-23] MEDS ORDERED: LIDOCAINE-MPF 1%, 2ML ENDO PRN (02:00)
[2021-02-23] MEDS ORDERED: SENNA/DOCUSATE TABLET NG PRN (02:00)
[2021-02-23] MEDS ORDERED: ROCURONIUM 10MG/ML,5ML ONE (02:12)
[2021-02-23] MEDS ORDERED: MIDAZOLAM 1 MG/ML, 5ML ONE (02:12)
[2021-02-23] MEDS ORDERED: PROPOFOL 10 MG/ML, 100ML IV ONE (02:12)
[2021-02-23] MEDS ORDERED: ETOMIDATE 20 MG/10 ML ONE (02:12)
[2021-02-23] MEDS: PROPOFOL 100 ML IV PRN ×2 (02:22→06:52)
[2021-02-23] MEDS ORDERED: PLEASE ENTER ACCURATE WEIGHT MC SCH (02:30)
[2021-02-23] MEDS: FENTANYL PF 100 MCG/2ML IVPush PRN ×2 (02:36→11:53)
[2021-02-23] MEDS: FAMOTIDINE 20 MG/2 ML IV SCH ×2 (02:37→13:54)
[2021-02-23 02:43] LABS: AMPHETAMINE SCREEN, URINE Negative (Negative); BARBITURATE SCREEN, URINE Negative (Negative); BENZODIAZEPINE SCREEN, URINE Positive (Negative); CANNABINOID SCREEN, URINE Negative (Negative); COCAINE SCREEN, URINE Negative (Negative); METHADONE SCREEN, URINE Negative (Negative); OPIATE SCREEN, URINE Positive (Negative)
[2021-02-23 03:11] VITALS: BP 124/79
[2021-02-23] MEDS ORDERED: VANCOMYCIN 2,000 MG in SODIUM CHLORIDE 0.9% 500 ML IV ONE (03:30)
[2021-02-23 03:39] VITALS: BP 115/73
[2021-02-23 04:19] LABS: BASOPHILS % (AUTO) 0 % (0-1); EOSINOPHILS % (AUTO) 0 % (1-7); LYMPHOCYTES % (AUTO) 3 % (22-44); MEAN CORPUSCULAR HEMOGLOBIN 25.6 pg (27.5-34.5); MEAN CORPUSCULAR HGB CONC 31.6 g/dL (33.2-36.2); MEAN PLATELET VOLUME 7.2 fL (7.4-10.4); MONOCYTES % (AUTO) 1 % (2-9); NEUTROPHILS % (AUTO) 97 % (42-75); PLATELET COUNT 307 x10^3/uL (130-400); RED BLOOD COUNT 3.53 x10^6/uL (4.38-5.82); RED CELL DISTRIBUTION WIDTH 19.5 % (9.4-14.8)
[2021-02-23 04:20] LABS: MD SCAN
[2021-02-23 04:29] LABS: ALANINE AMINOTRANSFERASE 85 U/L (12-78); ALBUMIN 2.5 g/dL (3.4-5.0); ANION GAP 8 mmol/L (5-15); CALCIUM 7.6 mg/dL (8.5-10.1); CHLORIDE 108 mmol/L (98-107); CREATININE 0.45 mg/dL (0.7-1.3)
[2021-02-23 04:31] LABS: ALKALINE PHOSPHATASE 104 U/L (45-117); BILIRUBIN,TOTAL 0.2 mg/dL (0.2-1.0); TOTAL PROTEIN 5.5 g/dL (6.4-8.2)
[2021-02-23] MEDS ORDERED: CEFEPIME 2 GM in DEXTROSE 5% 100 ML IVPB SCH (05:00)
[2021-02-23] MEDS ORDERED: PHARMACOKINETIC MONITORING MC PRN ×2 (07:00→15:30)
[2021-02-23] MEDS ORDERED: PHARMACOKINETIC CONSULTATION MC ONE ×2 (07:00→15:30)
[2021-02-23] MEDS ORDERED: DEXMEDETOMIDINE 400 MCG/100 ML IV PRN (08:30)
[2021-02-23] MEDS ORDERED: DEXMEDETOMIDINE 400 MCG in SODIUM CHLORIDE 0.9% 100 ML IV PRN (08:30)
[2021-02-23] MEDS ORDERED: GABAPENTIN 300 MG CAPSULE PO SCH (09:00)
[2021-02-23] MEDS ORDERED: METHADONE 10 MG TABLET PO SCH (09:00)
[2021-02-23] MEDS ORDERED: POTASSIUM CHLORIDE 20 MEQ PACKET ONE (09:16)
[2021-02-23] MEDS: methylPREDNISolone SOD SUCC 125 MG/2 ML IVPush SCH ×2 (09:21→21:11)
[2021-02-23] MEDS: APIXABAN 5 MG TABLET PO/NG SCH ×2 (09:21→21:10)
[2021-02-23] MEDS: POTASSIUM CHLORIDE 10% 40 MEQ/30 ML UDC PO SCH ×2 (09:21→21:00)
[2021-02-23] MEDS ORDERED: ALBUTEROL HFA 90 MCG/SPRAY INH PRN (14:30)
[2021-02-23] MEDS: VANCOMYCIN 1,500 MG in SODIUM CHLORIDE 0.9% 250 ML IV SCH (16:06)
[2021-02-23] MEDS: BUSPIRONE 5 MG TABLET PO SCH ×2 (16:36→23:41)
[2021-02-23] MEDS: GABAPENTIN 300 MG CAPSULE PO SCH ×2 (16:36→23:41)
[2021-02-23] MEDS: OXYcodone 5 MG/5 ML ORAL.SOL UDC PO PRN ×2 (17:39→23:42)
[2021-02-23] MEDS ORDERED: ALBUTEROL HFA 90 MCG/SPRAY INH SCH (18:00)
[2021-02-23 18:42] VITALS: BP 142/90
[2021-02-23] MEDS ORDERED: ALBUTEROL SULFATE 2.5 MG/3 ML ONE (19:26)
[2021-02-23 21:07] VITALS: BP 138/88
[2021-02-23] MEDS: METOPROLOL TARTRATE 25 MG TAB PO SCH (21:10)
[2021-02-23] MEDS: LISINOPRIL 20 MG TABLET PO SCH (21:11)
[2021-02-23] MEDS ORDERED: POTASSIUM CHLORIDE 20 MEQ TAB.ER.PRT PO SCH (22:31)
[2021-02-23] MEDS ORDERED: ALBUTEROL/IPRATROPIUM 2.5MG/0.5MG, 3 ML ONE (22:59)
[2021-02-23] MEDS ORDERED: ALBUTEROL SULFATE 2.5MG/0.5ML NPPB SCH (23:00)
[2021-02-23] MEDS ORDERED: ALBUTEROL SULFATE 2.5 MG/3 ML NPPB SCH (23:00)
[2021-02-24 00:59] VITALS: BP 133/81
[2021-02-24] MEDS: ALBUTEROL/IPRATROPIUM 2.5MG/0.5MG, 3 ML NPPB SCH ×5 (05:33→21:28)
[2021-02-24] MEDS: OXYcodone 5 MG/5 ML ORAL.SOL UDC PO PRN ×3 (05:46→22:54)
[2021-02-24 06:10] VITALS: BP 166/98
[2021-02-24 06:30] LABS: BASOPHILS % (AUTO) 1 % (0-1); EOSINOPHILS % (AUTO) 0 % (1-7); LYMPHOCYTES % (AUTO) 5 % (22-44); MEAN CORPUSCULAR HEMOGLOBIN 25.7 pg (27.5-34.5); MEAN CORPUSCULAR HGB CONC 31.8 g/dL (33.2-36.2); MEAN PLATELET VOLUME 7.6 fL (7.4-10.4); MONOCYTES % (AUTO) 3 % (2-9); NEUTROPHILS % (AUTO) 92 % (42-75); PLATELET COUNT 224 x10^3/uL (130-400); RED BLOOD COUNT 3.51 x10^6/uL (4.38-5.82); RED CELL DISTRIBUTION WIDTH 19.9 % (9.4-14.8)
[2021-02-24 06:33] LABS: MD NO
[2021-02-24 06:40] LABS: ALANINE AMINOTRANSFERASE 65 U/L (12-78); ALBUMIN 2.7 g/dL (3.4-5.0); ANION GAP 5 mmol/L (5-15); CALCIUM 8.8 mg/dL (8.5-10.1); CHLORIDE 107 mmol/L (98-107); CREATININE 0.55 mg/dL (0.7-1.3)
[2021-02-24 06:42] LABS: ALKALINE PHOSPHATASE 106 U/L (45-117); BILIRUBIN,TOTAL 0.2 mg/dL (0.2-1.0)
[2021-02-24] MEDS: APIXABAN 5 MG TABLET PO/NG SCH ×2 (08:08→21:18)
[2021-02-24] MEDS: GABAPENTIN 300 MG CAPSULE PO SCH ×3 (08:08→21:18)
[2021-02-24] MEDS: METOPROLOL TARTRATE 25 MG TAB PO SCH ×2 (08:09→21:18)
[2021-02-24] MEDS: LISINOPRIL 20 MG TABLET PO SCH ×2 (08:10→21:18)
[2021-02-24] MEDS: PANTOPRAZOLE 40MG TABLET PO SCH (08:10)
[2021-02-24] MEDS: methylPREDNISolone SOD SUCC 125 MG/2 ML IVPush SCH ×3 (08:10→23:11)
[2021-02-24] MEDS: METHADONE 10 MG TABLET PO SCH (08:10)
[2021-02-24] MEDS: BUSPIRONE 5 MG TABLET PO SCH ×3 (08:10→21:19)
[2021-02-24] MEDS ORDERED: FLUTICASONE/VILANTEROL 100-25MCG/INH INH SCH (09:00)
[2021-02-24] MEDS ORDERED: TIOTROPIUM BROMIDE 18 MCG/INH INH SCH (09:00)
[2021-02-24] MEDS: BUDESONIDE 0.5 MG/2 ML INHA NPPB SCH ×2 (10:00→21:00)
[2021-02-24] MEDS: VANCOMYCIN 1,500 MG in SODIUM CHLORIDE 0.9% 250 ML IV SCH (10:40)
[2021-02-24 18:28] VITALS: BP 153/90
[2021-02-24 21:15] VITALS: BP 128/77
[2021-02-25] VITALS (7 sets, daily range): BP systolic 142–196; BP diastolic 79–126
[2021-02-25] MEDS: ALBUTEROL/IPRATROPIUM 2.5MG/0.5MG, 3 ML NPPB SCH ×6 (02:38→20:00)
[2021-02-25] MEDS: VANCOMYCIN 1,500 MG in SODIUM CHLORIDE 0.9% 250 ML IV SCH ×2 (03:59→21:39)
[2021-02-25 05:51] LABS: BASOPHILS % (AUTO) 0 % (0-1); EOSINOPHILS % (AUTO) 0 % (1-7); LYMPHOCYTES % (AUTO) 3 % (22-44); MD NO; MEAN CORPUSCULAR HEMOGLOBIN 25.8 pg (27.5-34.5); MEAN CORPUSCULAR HGB CONC 31.9 g/dL (33.2-36.2); MEAN PLATELET VOLUME 7.8 fL (7.4-10.4); MONOCYTES % (AUTO) 2 % (2-9); NEUTROPHILS % (AUTO) 95 % (42-75); PLATELET COUNT 224 x10^3/uL (130-400); RED BLOOD COUNT 3.25 x10^6/uL (4.38-5.82); RED CELL DISTRIBUTION WIDTH 19.3 % (9.4-14.8)
[2021-02-25 06:00] LABS: ALANINE AMINOTRANSFERASE 66 U/L (12-78); ALBUMIN 2.7 g/dL (3.4-5.0); CHLORIDE 106 mmol/L (98-107); CREATININE 0.48 mg/dL (0.7-1.3)
[2021-02-25 06:09] LABS: ALKALINE PHOSPHATASE 112 U/L (45-117); BILIRUBIN,TOTAL 0.2 mg/dL (0.2-1.0); TOTAL PROTEIN 5.7 g/dL (6.4-8.2)
[2021-02-25 06:20] LABS: ANION GAP 5 mmol/L (5-15); CALCIUM 8.8 mg/dL (8.5-10.1)
[2021-02-25] MEDS: BUDESONIDE 0.5 MG/2 ML INHA NPPB SCH ×2 (07:20→20:50)
[2021-02-25] MEDS: METOPROLOL TARTRATE 25 MG TAB PO SCH ×2 (07:24→21:38)
[2021-02-25] MEDS: BUSPIRONE 5 MG TABLET PO SCH ×3 (07:24→21:38)
[2021-02-25] MEDS: PANTOPRAZOLE 40MG TABLET PO SCH (07:25)
[2021-02-25] MEDS: GABAPENTIN 300 MG CAPSULE PO SCH ×3 (07:25→21:38)
[2021-02-25] MEDS: METHADONE 10 MG TABLET PO SCH (07:25)
[2021-02-25] MEDS: APIXABAN 5 MG TABLET PO/NG SCH ×2 (07:25→21:38)
[2021-02-25] MEDS: LISINOPRIL 20 MG TABLET PO SCH ×2 (07:25→21:38)
[2021-02-25] MEDS: OXYcodone 5 MG/5 ML ORAL.SOL UDC PO PRN ×3 (07:34→21:37)
[2021-02-25] MEDS: methylPREDNISolone SOD SUCC 125 MG/2 ML IVPush SCH (11:44)
[2021-02-25] MEDS ORDERED: hydrALAzine 20 MG/ML, 1ML IV ONE (12:30)
[2021-02-25] MEDS: CHLORTHALIDONE 25 MG TABLET PO SCH (13:30)
[2021-02-26 00:43] VITALS: BP 156/99
[2021-02-26] MEDS ORDERED: VANCOMYCIN 1,700 MG in SODIUM CHLORIDE 0.9% 250 ML IV SCH ×2 (05:00→15:00)
[2021-02-26] MEDS: ALBUTEROL/IPRATROPIUM 2.5MG/0.5MG, 3 ML NPPB PRN ×2 (05:33→17:25)
[2021-02-26 06:21] LABS: ALBUMIN 2.7 g/dL (3.4-5.0); ANION GAP 3 mmol/L (5-15); BASOPHILS % (AUTO) 0 % (0-1); CALCIUM 9.2 mg/dL (8.5-10.1); CHLORIDE 103 mmol/L (98-107); EOSINOPHILS % (AUTO) 0 % (1-7); LYMPHOCYTES % (AUTO) 9 % (22-44); MEAN CORPUSCULAR HEMOGLOBIN 25.1 pg (27.5-34.5); MEAN CORPUSCULAR HGB CONC 31.2 g/dL (33.2-36.2); MEAN PLATELET VOLUME 7.8 fL (7.4-10.4); MONOCYTES % (AUTO) 8 % (2-9); NEUTROPHILS % (AUTO) 83 % (42-75); PLATELET COUNT 230 x10^3/uL (130-400); RED CELL DISTRIBUTION WIDTH 19.7 % (9.4-14.8)
[2021-02-26 06:25] LABS: ALANINE AMINOTRANSFERASE 69 U/L (12-78); ALKALINE PHOSPHATASE 120 U/L (45-117); BILIRUBIN,TOTAL 0.3 mg/dL (0.2-1.0); CREATININE 0.51 mg/dL (0.7-1.3); MD NO; TOTAL PROTEIN 5.7 g/dL (6.4-8.2)
[2021-02-26 06:48] VITALS: BP 167/98
[2021-02-26] MEDS: BUDESONIDE 0.5 MG/2 ML INHA NPPB SCH ×2 (07:30→21:35)
[2021-02-26] MEDS: ALBUTEROL/IPRATROPIUM 2.5MG/0.5MG, 3 ML NPPB SCH ×4 (07:30→21:35)
[2021-02-26] MEDS ORDERED: POTASSIUM CHLORIDE 20 MEQ TAB.ER.PRT PO ONE (08:30)
[2021-02-26] MEDS: PANTOPRAZOLE 40MG TABLET PO SCH (08:57)
[2021-02-26] MEDS: methylPREDNISolone SOD SUCC 40 MG/ML IVPush SCH (08:57)
[2021-02-26] MEDS: CHLORTHALIDONE 25 MG TABLET PO SCH (08:58)
[2021-02-26] MEDS: APIXABAN 5 MG TABLET PO/NG SCH ×2 (08:58→21:18)
[2021-02-26] MEDS: METOPROLOL TARTRATE 25 MG TAB PO SCH (08:58)
[2021-02-26] MEDS: GABAPENTIN 300 MG CAPSULE PO SCH ×3 (08:58→21:18)
[2021-02-26] MEDS: METHADONE 10 MG TABLET PO SCH (08:58)
[2021-02-26] MEDS: BUSPIRONE 5 MG TABLET PO SCH ×3 (08:58→20:50)
[2021-02-26] MEDS: LISINOPRIL 20 MG TABLET PO SCH ×2 (08:59→21:18)
[2021-02-26] MEDS: OXYcodone 5 MG/5 ML ORAL.SOL UDC PO PRN ×3 (11:10→23:19)
[2021-02-26 12:54] VITALS: BP 165/101
[2021-02-26 13:08] LABS: MICROSCOPIC NOT IND
[2021-02-26] MEDS ORDERED: LABETALOL 5MG/ML, 20ML IVPush PRN (13:30)
[2021-02-26] MEDS ORDERED: hydrALAzine 20 MG/ML, 1ML IV PRN (14:00)
[2021-02-26 17:21] VITALS: BP 156/100
[2021-02-26 20:00] VITALS: BP 161/102
[2021-02-26] MEDS: METOPROLOL TARTRATE 100 MG TAB PO SCH (21:19)
[2021-02-26 23:20] VITALS: BP 149/101
[2021-02-27 00:11] VITALS: BP 152/92
[2021-02-27] MEDS: ALBUTEROL/IPRATROPIUM 2.5MG/0.5MG, 3 ML NPPB SCH ×2 (04:53→11:05)
[2021-02-27] MEDS: OXYcodone 5 MG/5 ML ORAL.SOL UDC PO PRN ×2 (05:36→12:01)
[2021-02-27 06:22] LABS: BASOPHILS % (AUTO) 1 % (0-1); EOSINOPHILS % (AUTO) 0 % (1-7); LYMPHOCYTES % (AUTO) 13 % (22-44); MEAN CORPUSCULAR HEMOGLOBIN 25.3 pg (27.5-34.5); MEAN CORPUSCULAR HGB CONC 31.3 g/dL (33.2-36.2); MEAN PLATELET VOLUME 7.7 fL (7.4-10.4); MONOCYTES % (AUTO) 9 % (2-9); NEUTROPHILS % (AUTO) 77 % (42-75); PLATELET COUNT 216 x10^3/uL (130-400); RED BLOOD COUNT 3.67 x10^6/uL (4.38-5.82); RED CELL DISTRIBUTION WIDTH 19.4 % (9.4-14.8)
[2021-02-27 06:28] LABS: MD NO
[2021-02-27 06:38] LABS: CHLORIDE 103 mmol/L (98-107)
[2021-02-27 06:46] LABS: ALANINE AMINOTRANSFERASE 69 U/L (12-78); ALBUMIN 2.8 g/dL (3.4-5.0); ALKALINE PHOSPHATASE 145 U/L (45-117); ANION GAP 3 mmol/L (5-15); BILIRUBIN,TOTAL 0.2 mg/dL (0.2-1.0); CALCIUM 8.8 mg/dL (8.5-10.1); CREATININE 0.51 mg/dL (0.7-1.3); TOTAL PROTEIN 5.9 g/dL (6.4-8.2)
[2021-02-27] MEDS ORDERED: GADOTERATE 10 MMOL/20ML SYR ONE (08:20)
[2021-02-27 08:54] VITALS: BP 136/93
[2021-02-27] MEDS: BUDESONIDE 0.5 MG/2 ML INHA NPPB SCH (11:05)
[2021-02-27] MEDS: METOPROLOL TARTRATE 100 MG TAB PO SCH (11:09)
[2021-02-27] MEDS: PANTOPRAZOLE 40MG TABLET PO SCH (11:09)
[2021-02-27] MEDS: BUSPIRONE 5 MG TABLET PO SCH (11:09)
[2021-02-27] MEDS: CHLORTHALIDONE 25 MG TABLET PO SCH (11:09)
[2021-02-27] MEDS: APIXABAN 5 MG TABLET PO/NG SCH (11:10)
[2021-02-27] MEDS: GABAPENTIN 300 MG CAPSULE PO SCH (11:10)
[2021-02-27] MEDS: methylPREDNISolone SOD SUCC 40 MG/ML IVPush SCH (11:10)
[2021-02-27] MEDS: LISINOPRIL 20 MG TABLET PO SCH (11:10)
[2021-02-27] MEDS: METHADONE 10 MG TABLET PO SCH (11:10)
== END 2021-02-27 12:57 | disposition left against medical advice (07) | DRG 871 ==
LOC: ED 22:08 → EDIP 02-23 00:42 → CCU 02-23 02:09 → 3N 02-23 17:53
PROVIDERS: ADMIT Family Medicine; ATTEND Internal Medicine
PROC: 0BH17EZ Insertion of Endotracheal Airway into Trachea, Via Natural or Artificial Opening (ICD-10-PCS; principal; 2021-02-22)
PROC: 5A1935Z Respiratory Ventilation, Less than 24 Consecutive Hours (ICD-10-PCS; 2021-02-22)
PROC: 02HV33Z Insertion of Infusion Device into Superior Vena Cava, Percutaneous Approach (ICD-10-PCS; 2021-02-22)
PROC: B548ZZA Ultrasonography of Superior Vena Cava, Guidance (ICD-10-PCS; 2021-02-22)
DX: A41.81 Sepsis due to Enterococcus (principal); J15.9 Unspecified bacterial pneumonia; J96.21 Acute and chronic respiratory failure with hypoxia; R65.21 Severe sepsis with septic shock; D68.59 Other primary thrombophilia; F11.20 Opioid dependence, uncomplicated; M48.56XA Collapsed vertebra, not elsewhere classified, lumbar region, initial encounter for fracture; D63.8 Anemia in other chronic diseases classified elsewhere; F15.90 Other stimulant use, unspecified, uncomplicated; G89.29 Other chronic pain; F17.210 Nicotine dependence, cigarettes, uncomplicated; I11.0 Hypertensive heart disease with heart failure; I50.9 Heart failure, unspecified; I48.0 Paroxysmal atrial fibrillation; J43.9 Emphysema, unspecified; K70.9 Alcoholic liver disease, unspecified; Z59.0 Homelessness; Z79.01 Long term (current) use of anticoagulants; Z82.49 Family history of ischemic heart disease and other diseases of the circulatory system; Z86.14 Personal history of Methicillin resistant Staphylococcus aureus infection; Z86.19 Personal history of other infectious and parasitic diseases; Z91.19 Patient's noncompliance with other medical treatment and regimen; M48.04 Spinal stenosis, thoracic region; Z90.49 Acquired absence of other specified parts of digestive tract; M51.36 Other intervertebral disc degeneration, lumbar region; Z91.013 Allergy to seafood; Z91.018 Allergy to other foods
CPT/HCPCS: 31500; 36415; 36556; 36600; 84145; 96365; 99291; J7613; J7626; 71045; 71275; 72157; 72158; 80053; 80202; 80307; 81003; 82803; 83605; 83880; 84478; 84484; 85025; 87040; 87070; 87077; 87081; 87186; 87205; 93005; 94002; 94003; 94150; 94640; G0378; J0456; J0696; J2250; J2704; J3010; J3370; Q9967; A9575; J0360; J2920; J2930; J7030; J7040; J7050

== ENCOUNTER 2021-03-04 17:23 | Inpatient (IN) | payer MEDICAID ==
[~2021-03-04] VITALS: Ht 182.9 cm; Wt 88.2 kg
[2021-03-04] MEDS ORDERED: SODIUM CHLORIDE 0.9% 1,000 ML IV ONE (17:30)
[2021-03-04 17:46] LABS: BASOPHILS % (AUTO) 1 % (0-1); EOSINOPHILS % (AUTO) 1 % (1-7); LYMPHOCYTES % (AUTO) 12 % (22-44); MEAN CORPUSCULAR HEMOGLOBIN 25.6 pg (27.5-34.5); MEAN CORPUSCULAR HGB CONC 31.6 g/dL (33.2-36.2); MEAN PLATELET VOLUME 7.5 fL (7.4-10.4); MONOCYTES % (AUTO) 11 % (2-9); NEUTROPHILS % (AUTO) 76 % (42-75); PLATELET COUNT 280 x10^3/uL (130-400); RED BLOOD COUNT 3.84 x10^6/uL (4.38-5.82); RED CELL DISTRIBUTION WIDTH 20.1 % (9.4-14.8)
--- NOTE | 2021-03-04 17:47 | NUR ---
BIB [facility]. +ETOH, LOW BP. 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 PT DC FROM [facility] YESTERDAY. PT CONNECTED TO MONITORING. IVF STARTED BY KATH CONTINUING TO COMPLETE 1L NS. EKG COMPLETE. CALL LIGHT IN REACH. PT CALLING FOR HIS MOTHER. PT POSITIONED FOR COMFORT.
[2021-03-04 17:54] LABS: ALANINE AMINOTRANSFERASE 42 U/L (12-78); ALBUMIN 2.9 g/dL (3.4-5.0); ANION GAP 11 mmol/L (5-15); CALCIUM 8.4 mg/dL (8.5-10.1); CHLORIDE 100 mmol/L (98-107); CREATININE 1.23 mg/dL (0.7-1.3)
[2021-03-04 17:57] LABS: ALKALINE PHOSPHATASE 119 U/L (45-117); BILIRUBIN,TOTAL 0.2 mg/dL (0.2-1.0); TOTAL PROTEIN 6.3 g/dL (6.4-8.2)
[2021-03-04] MEDS ORDERED: PLEASE ENTER HEIGHT AND WEIGHT MC SCH (18:00)
--- NOTE | 2021-03-04 18:01 | NUR ---
TASK RN: AFTER LITER OF FLUIDS THAT WAS STARTED IN THE FIELD COMPLETED, SECOND BAG OF NORMAL SALINE INFUSING.
[2021-03-04 18:04] LABS: MD MORPH REVIEW ONLY
[2021-03-04 18:05] LABS: ANISOCYTOSIS 1+; OVALOCYTES 1+
[2021-03-04 18:06] LABS: POLYCHROMASIA 1+
[2021-03-04 18:07] LABS: HYPOCHROMIA 1+
[2021-03-04 18:08] LABS: <PLATELET ESTIMATE> ADEQUATE; <PLT MORPHOLOGY> NORMAL PLT MORPH; MICROCYTOSIS 1+
[2021-03-04] MEDS ORDERED: LACTATED RINGERS 1,000 ML IV ONE (19:00)
--- NOTE | 2021-03-04 19:00 | NUR ---
REPORT GIVEN TO FLOYD LUNA. TRANSFER OF CARE COMPLETE.
[2021-03-04] MEDS ORDERED: OMNIPAQUE 350 MG/ML, 100ML BOTTLE ONE (19:23)
--- NOTE | 2021-03-04 19:25 | NUR ---
PT COMPLAINS OF SOB, ERP STATED TO STOP IVF AT THIS TIME, CT OF CHEST ORDERED
[2021-03-04] MEDS ORDERED: ALBUTEROL SULFATE 2.5 MG/3 ML ONE (20:43)
[2021-03-04] MEDS ORDERED: ACETAMINOPHEN 500 MG TABLET ONE (20:43)
[2021-03-04] MEDS ORDERED: METOPROLOL 1 MG/ML, 5ML ONE (20:54)
[2021-03-04 20:58] LABS: MICROSCOPIC INDICATED
[2021-03-04] MEDS ORDERED: ALBUTEROL SULFATE 2.5 MG/3 ML NPPB ONE (21:00)
[2021-03-04] MEDS ORDERED: ACETAMINOPHEN 500 MG TABLET PO ONE (21:00)
[2021-03-04] MEDS ORDERED: METOPROLOL 1 MG/ML, 5ML IVPush ONE (21:00)
[2021-03-04 21:05] LABS: AMPHETAMINE SCREEN, URINE Negative (Negative); BARBITURATE SCREEN, URINE Negative (Negative); BENZODIAZEPINE SCREEN, URINE Positive (Negative); CANNABINOID SCREEN, URINE Negative (Negative); COCAINE SCREEN, URINE Negative (Negative); METHADONE SCREEN, URINE Negative (Negative); OPIATE SCREEN, URINE Positive (Negative)
--- NOTE | 2021-03-04 21:10 | NUR ---
PT'S BP IS 93/58. PER ERP OK TO GIVE IV METOPROLOL, DECREASING HR MAY HELP WITH INCREASING CARDIAC OUTPUT
--- NOTE | 2021-03-04 22:39 | NUR ---
PT RESTING IN [facility], S, PT TO BE ADMITTED, AWAIIT ROOM
--- NOTE | 2021-03-04 22:52 | NUR ---
ATTEMPTED TO DO MED REC, PT STATED "DONT ASK ME I DONT KNOW"
--- NOTE | 2021-03-04 23:39 | NUR ---
REPORT GIVEN TO JEREMY RILEY
[2021-03-05] MEDS ORDERED: LORazepam 2 MG/ML, 1ML IV PRN ×5
[2021-03-05] MEDS ORDERED: ALUMINUM/MAG/SIMETHICONE 30 ML UDC PO PRN
[2021-03-05] MEDS ORDERED: BISACODYL 10 MG SUPP PR PRN
[2021-03-05 00:12] VITALS: BP 88/54
[2021-03-05 00:28] VITALS: BP 93/55
[2021-03-05] MEDS: ACETAMINOPHEN 325 MG TABLET PO PRN ×2 (00:31→05:59)
[2021-03-05] MEDS: MELATONIN 5 MG TABLET PO PRN ×2 (00:32→20:03)
[2021-03-05] MEDS: SODIUM CHLORIDE 0.9% 1,000 ML IV SCH ×2 (00:41→17:26)
[2021-03-05 06:03] LABS: BASOPHILS % (AUTO) 1 % (0-1); EOSINOPHILS % (AUTO) 2 % (1-7); LYMPHOCYTES % (AUTO) 30 % (22-44); MEAN CORPUSCULAR HEMOGLOBIN 25.8 pg (27.5-34.5); MEAN CORPUSCULAR HGB CONC 32.2 g/dL (33.2-36.2); MEAN PLATELET VOLUME 7.4 fL (7.4-10.4); MONOCYTES % (AUTO) 15 % (2-9); NEUTROPHILS % (AUTO) 53 % (42-75); PLATELET COUNT 237 x10^3/uL (130-400); RED BLOOD COUNT 3.11 x10^6/uL (4.38-5.82); RED CELL DISTRIBUTION WIDTH 19.9 % (9.4-14.8)
[2021-03-05 06:08] LABS: ANION GAP 8 mmol/L (5-15); CHLORIDE 105 mmol/L (98-107); CREATININE 0.79 mg/dL (0.7-1.3)
[2021-03-05 06:12] LABS: MD NO
[2021-03-05] MEDS: ALBUTEROL SULFATE 2.5 MG/3 ML NPPB SCH ×4 (07:00→19:05)
[2021-03-05] MEDS: BUDESONIDE 0.5 MG/2 ML INHA INH SCH ×2 (07:00→19:05)
[2021-03-05] MEDS ORDERED: MAGNESIUM SULFATE PMX 2GM/50ML 50 ML IV ONE (07:30)
[2021-03-05 08:25] VITALS: BP 98/60
[2021-03-05] MEDS: HYDROmorphone 1 MG/ML, 1ML INJ IV PRN ×2 (13:35→17:20)
[2021-03-05 14:38] VITALS: BP 98/61
[2021-03-05 20:07] VITALS: BP 128/81
[2021-03-06 00:59] VITALS: BP 128/82
[2021-03-06] MEDS: HYDROmorphone 1 MG/ML, 1ML INJ IV PRN ×5 (01:02→19:34)
[2021-03-06] MEDS: SODIUM CHLORIDE 0.9% 1,000 ML IV SCH ×2 (05:36→20:53)
[2021-03-06] MEDS: ALBUTEROL SULFATE 2.5 MG/3 ML NPPB SCH ×4 (05:50→18:45)
[2021-03-06] MEDS: BUDESONIDE 0.5 MG/2 ML INHA INH SCH ×2 (05:50→18:45)
[2021-03-06 07:29] LABS: BASOPHILS % (AUTO) 1 % (0-1); EOSINOPHILS % (AUTO) 3 % (1-7); LYMPHOCYTES % (AUTO) 22 % (22-44); MEAN CORPUSCULAR HEMOGLOBIN 25.6 pg (27.5-34.5); MEAN CORPUSCULAR HGB CONC 31.7 g/dL (33.2-36.2); MEAN PLATELET VOLUME 7.3 fL (7.4-10.4); MONOCYTES % (AUTO) 15 % (2-9); NEUTROPHILS % (AUTO) 59 % (42-75); PLATELET COUNT 244 x10^3/uL (130-400); RED BLOOD COUNT 3.07 x10^6/uL (4.38-5.82); RED CELL DISTRIBUTION WIDTH 19.9 % (9.4-14.8)
[2021-03-06 07:40] LABS: CALCIUM 8.3 mg/dL (8.5-10.1)
[2021-03-06 07:43] LABS: INTERNATIONAL NORMALIZED RATIO 0.96 (0.93-1.1); PROTHROMBIN TIME 10.3 Seconds (9.6-11.5)
[2021-03-06 07:47] LABS: MD NO
[2021-03-06 07:54] LABS: ANION GAP 3 mmol/L (5-15); CHLORIDE 104 mmol/L (98-107)
[2021-03-06 09:29] VITALS: BP 124/79
[2021-03-06] MEDS: THIAMINE 100 MG in DEXTROSE 5% 50 ML IVPB SCH (09:38)
[2021-03-06] MEDS: ACETAMINOPHEN 325 MG TABLET PO PRN ×2 (09:45→15:14)
[2021-03-06 14:01] VITALS: BP 135/87
[2021-03-06] MEDS ORDERED: MAGNESIUM SULFATE PMX 2GM/50ML 50 ML IV ONE (15:30)
[2021-03-06 19:07] VITALS: BP 133/86
[2021-03-07 00:28] VITALS: BP 152/96
[2021-03-07] MEDS: HYDROmorphone 1 MG/ML, 1ML INJ IV PRN ×4 (00:31→20:36)
[2021-03-07] MEDS: ACETAMINOPHEN 325 MG TABLET PO PRN ×4 (01:45→20:35)
[2021-03-07 06:29] VITALS: BP 146/98
[2021-03-07] MEDS: ALBUTEROL SULFATE 2.5 MG/3 ML NPPB SCH ×4 (06:32→20:00)
[2021-03-07] MEDS: BUDESONIDE 0.5 MG/2 ML INHA INH SCH ×2 (06:32→20:06)
[2021-03-07] MEDS ORDERED: ALBUTEROL HFA 90 MCG/SPRAY INH PRN (07:30)
[2021-03-07] MEDS: LISINOPRIL 20 MG TABLET PO SCH ×2 (08:24→20:35)
[2021-03-07] MEDS: APIXABAN 5 MG TABLET PO/NG SCH ×2 (08:24→20:35)
[2021-03-07] MEDS: BUSPIRONE 5 MG TABLET PO SCH ×3 (08:24→20:35)
[2021-03-07] MEDS: GABAPENTIN 300 MG CAPSULE PO SCH ×3 (08:24→20:35)
[2021-03-07] MEDS: METHADONE 10 MG TABLET PO SCH (08:24)
[2021-03-07] MEDS: THIAMINE 100 MG in DEXTROSE 5% 50 ML IVPB SCH (08:56)
[2021-03-07] MEDS ORDERED: TIOTROPIUM BROMIDE 18 MCG/INH INH SCH (09:00)
[2021-03-07] MEDS ORDERED: FLUTICASONE/VILANTEROL 100-25MCG/INH INH SCH (09:00)
[2021-03-07] MEDS: SODIUM CHLORIDE 0.9% 1,000 ML IV SCH (12:23)
[2021-03-07 13:52] VITALS: BP 118/79
[2021-03-07 19:13] VITALS: BP 119/78
[2021-03-08 00:59] VITALS: BP 121/80
[2021-03-08] MEDS: SODIUM CHLORIDE 0.9% 1,000 ML IV SCH ×2 (01:30→15:26)
[2021-03-08] MEDS: HYDROmorphone 1 MG/ML, 1ML INJ IV PRN ×5 (01:30→21:31)
[2021-03-08] MEDS: ACETAMINOPHEN 325 MG TABLET PO PRN ×5 (01:30→21:32)
[2021-03-08] MEDS: BUDESONIDE 0.5 MG/2 ML INHA INH SCH ×2 (06:28→19:01)
[2021-03-08] MEDS: ALBUTEROL SULFATE 2.5 MG/3 ML NPPB SCH ×4 (06:28→19:01)
[2021-03-08 06:50] VITALS: BP 145/92
[2021-03-08] MEDS: METHADONE 10 MG TABLET PO SCH (07:51)
[2021-03-08] MEDS: LISINOPRIL 20 MG TABLET PO SCH ×2 (07:51→21:33)
[2021-03-08] MEDS: BUSPIRONE 5 MG TABLET PO SCH ×3 (07:51→21:32)
[2021-03-08] MEDS: GABAPENTIN 300 MG CAPSULE PO SCH ×3 (07:51→21:31)
[2021-03-08] MEDS: APIXABAN 5 MG TABLET PO/NG SCH ×2 (07:51→21:32)
[2021-03-08] MEDS: THIAMINE 100 MG in DEXTROSE 5% 50 ML IVPB SCH (09:18)
[2021-03-08] MEDS: OXYcodone IR 5MG TABLET PO PRN (09:18)
[2021-03-08 12:35] VITALS: BP 159/93
[2021-03-08 19:13] VITALS: BP 123/77
[2021-03-08] MEDS ORDERED: ALBUTEROL SULFATE 2.5MG/0.5ML NPPB PRN (22:30)
[2021-03-09 00:43] VITALS: BP 142/92
[2021-03-09] MEDS: ACETAMINOPHEN 325 MG TABLET PO PRN ×4 (04:04→16:54)
[2021-03-09] MEDS: SODIUM CHLORIDE 0.9% 1,000 ML IV SCH (04:04)
[2021-03-09] MEDS: HYDROmorphone 1 MG/ML, 1ML INJ IV PRN ×5 (04:04→21:20)
[2021-03-09 05:55] LABS: BASOPHILS % (AUTO) 1 % (0-1); EOSINOPHILS % (AUTO) 4 % (1-7); LYMPHOCYTES % (AUTO) 29 % (22-44); MEAN CORPUSCULAR HEMOGLOBIN 25.6 pg (27.5-34.5); MEAN CORPUSCULAR HGB CONC 31.5 g/dL (33.2-36.2); MEAN PLATELET VOLUME 7.6 fL (7.4-10.4); MONOCYTES % (AUTO) 18 % (2-9); NEUTROPHILS % (AUTO) 48 % (42-75); PLATELET COUNT 268 x10^3/uL (130-400); RED CELL DISTRIBUTION WIDTH 20.4 % (9.4-14.8)
[2021-03-09 05:57] LABS: MD NO
[2021-03-09 06:03] LABS: CHLORIDE 109 mmol/L (98-107)
[2021-03-09 06:21] LABS: ALANINE AMINOTRANSFERASE 22 U/L (12-78); ALBUMIN 2.2 g/dL (3.4-5.0); ALKALINE PHOSPHATASE 113 U/L (45-117); ANION GAP 4 mmol/L (5-15); BILIRUBIN,TOTAL 0.1 mg/dL (0.2-1.0); CALCIUM 8.6 mg/dL (8.5-10.1); CREATININE 0.49 mg/dL (0.7-1.3); TOTAL PROTEIN 5.2 g/dL (6.4-8.2)
[2021-03-09] MEDS: ALBUTEROL SULFATE 2.5 MG/3 ML NPPB SCH ×4 (07:04→19:06)
[2021-03-09 07:30] VITALS: BP 135/82
[2021-03-09] MEDS ORDERED: MAGNESIUM SULFATE PMX 4GM/100M 100 ML IVPB ONE (08:00)
[2021-03-09] MEDS: BUSPIRONE 5 MG TABLET PO SCH ×3 (08:11→20:24)
[2021-03-09] MEDS: LISINOPRIL 20 MG TABLET PO SCH ×2 (08:11→20:24)
[2021-03-09] MEDS: GABAPENTIN 300 MG CAPSULE PO SCH ×3 (08:11→20:23)
[2021-03-09] MEDS: METHADONE 10 MG TABLET PO SCH (08:12)
[2021-03-09] MEDS: APIXABAN 5 MG TABLET PO/NG SCH ×2 (08:12→20:23)
[2021-03-09] MEDS: BUDESONIDE 0.5 MG/2 ML INHA INH SCH ×3 (09:00→19:06)
[2021-03-09] MEDS: THIAMINE 100 MG in DEXTROSE 5% 50 ML IVPB SCH (10:44)
[2021-03-09 12:53] VITALS: BP 131/86
[2021-03-09 19:00] VITALS: BP 161/89
[2021-03-09] MEDS: MELATONIN 5 MG TABLET PO PRN (20:23)
[2021-03-09] MEDS: OXYcodone IR 5MG TABLET PO PRN (20:24)
[2021-03-10 00:32] VITALS: BP 101/67
[2021-03-10] MEDS: HYDROmorphone 1 MG/ML, 1ML INJ IV PRN ×5 (03:30→22:21)
[2021-03-10 07:02] VITALS: BP 120/80
[2021-03-10] MEDS: ALBUTEROL SULFATE 2.5 MG/3 ML NPPB SCH ×4 (07:27→20:00)
[2021-03-10] MEDS: BUDESONIDE 0.5 MG/2 ML INHA INH SCH ×2 (07:27→20:09)
[2021-03-10] MEDS: GABAPENTIN 300 MG CAPSULE PO SCH ×3 (07:50→20:05)
[2021-03-10] MEDS: APIXABAN 5 MG TABLET PO/NG SCH ×2 (07:50→20:06)
[2021-03-10] MEDS: ACETAMINOPHEN 325 MG TABLET PO PRN ×3 (07:50→17:57)
[2021-03-10] MEDS: METHADONE 10 MG TABLET PO SCH (07:50)
[2021-03-10] MEDS: LISINOPRIL 20 MG TABLET PO SCH ×2 (07:50→20:06)
[2021-03-10] MEDS: BUSPIRONE 5 MG TABLET PO SCH ×3 (07:50→20:06)
[2021-03-10 13:11] VITALS: BP 118/71
[2021-03-10] MEDS: THIAMINE 100 MG in DEXTROSE 5% 50 ML IVPB SCH (13:12)
[2021-03-10] MEDS: OXYcodone IR 5MG TABLET PO PRN (14:57)
[2021-03-10] MEDS: MELATONIN 5 MG TABLET PO PRN (20:06)
[2021-03-10 21:04] VITALS: BP 116/78
[2021-03-11] MEDS: OXYcodone IR 5MG TABLET PO PRN ×3 (00:54→13:18)
[2021-03-11 00:57] VITALS: BP 112/75
[2021-03-11] MEDS: ACETAMINOPHEN 325 MG TABLET PO PRN ×3 (03:41→15:03)
[2021-03-11] MEDS: HYDROmorphone 1 MG/ML, 1ML INJ IV PRN ×3 (03:42→15:04)
[2021-03-11 06:48] VITALS: BP 120/79
[2021-03-11] MEDS: BUDESONIDE 0.5 MG/2 ML INHA INH SCH ×2 (07:03→20:35)
[2021-03-11] MEDS: ALBUTEROL SULFATE 2.5 MG/3 ML NPPB SCH ×4 (07:03→20:00)
[2021-03-11] MEDS: THIAMINE 100 MG in DEXTROSE 5% 50 ML IVPB SCH (09:47)
[2021-03-11] MEDS: APIXABAN 5 MG TABLET PO/NG SCH ×2 (09:47→20:16)
[2021-03-11] MEDS: GABAPENTIN 300 MG CAPSULE PO SCH ×3 (09:47→20:15)
[2021-03-11] MEDS: LISINOPRIL 20 MG TABLET PO SCH ×2 (09:47→20:16)
[2021-03-11] MEDS: BUSPIRONE 5 MG TABLET PO SCH ×3 (09:52→20:17)
[2021-03-11] MEDS: METHADONE 10 MG TABLET PO SCH (09:52)
[2021-03-11 12:45] VITALS: BP 105/73
[2021-03-11 20:07] VITALS: BP 109/72
[2021-03-12 01:33] VITALS: BP 147/86
[2021-03-12 01:35] VITALS: BP 108/74
[2021-03-12] MEDS: OXYcodone IR 5MG TABLET PO PRN (01:41)
[2021-03-12] MEDS: ACETAMINOPHEN 325 MG TABLET PO PRN ×2 (01:55→09:53)
[2021-03-12] MEDS: MELATONIN 5 MG TABLET PO PRN ×2 (01:55→23:42)
[2021-03-12] MEDS: BUDESONIDE 0.5 MG/2 ML INHA INH SCH ×2 (06:30→19:17)
[2021-03-12] MEDS: ALBUTEROL SULFATE 2.5 MG/3 ML NPPB SCH ×4 (06:30→19:17)
[2021-03-12 07:35] VITALS: BP 112/72
[2021-03-12] MEDS: APIXABAN 5 MG TABLET PO/NG SCH ×3 (07:42→19:26)
[2021-03-12] MEDS: METHADONE 10 MG TABLET PO SCH (08:47)
[2021-03-12] MEDS: BUSPIRONE 5 MG TABLET PO SCH ×3 (08:47→20:07)
[2021-03-12] MEDS: GABAPENTIN 300 MG CAPSULE PO SCH ×3 (08:47→20:07)
[2021-03-12] MEDS: LISINOPRIL 20 MG TABLET PO SCH ×2 (08:47→20:07)
[2021-03-12] MEDS: THIAMINE 100 MG in DEXTROSE 5% 50 ML IVPB SCH (08:48)
[2021-03-12] MEDS: HYDROmorphone 1 MG/ML, 1ML INJ IV PRN ×3 (09:53→20:07)
[2021-03-12 13:05] VITALS: BP 101/65
[2021-03-12 19:07] VITALS: BP 133/70
[2021-03-13 03:24] VITALS: BP 100/68
[2021-03-13] MEDS: HYDROmorphone 1 MG/ML, 1ML INJ IV PRN ×3 (03:24→17:15)
[2021-03-13] MEDS: ALBUTEROL SULFATE 2.5 MG/3 ML NPPB SCH ×4 (07:00→19:30)
[2021-03-13] MEDS: BUDESONIDE 0.5 MG/2 ML INHA INH SCH ×2 (07:00→19:30)
[2021-03-13 07:15] VITALS: BP 99/66
[2021-03-13] MEDS: APIXABAN 5 MG TABLET PO/NG SCH ×2 (08:00→21:48)
[2021-03-13 08:02] LABS: BASOPHILS % (AUTO) 1 % (0-1); EOSINOPHILS % (AUTO) 3 % (1-7); LYMPHOCYTES % (AUTO) 46 % (22-44); MEAN CORPUSCULAR HEMOGLOBIN 26.2 pg (27.5-34.5); MEAN CORPUSCULAR HGB CONC 32.2 g/dL (33.2-36.2); MEAN PLATELET VOLUME 7.1 fL (7.4-10.4); MONOCYTES % (AUTO) 17 % (2-9); NEUTROPHILS % (AUTO) 33 % (42-75); PLATELET COUNT 308 x10^3/uL (130-400); RED BLOOD COUNT 3.24 x10^6/uL (4.38-5.82); RED CELL DISTRIBUTION WIDTH 19.4 % (9.4-14.8)
[2021-03-13] MEDS: METHADONE 10 MG TABLET PO SCH (08:05)
[2021-03-13] MEDS: GABAPENTIN 300 MG CAPSULE PO SCH ×3 (08:05→21:48)
[2021-03-13] MEDS: BUSPIRONE 5 MG TABLET PO SCH ×3 (08:05→21:48)
[2021-03-13] MEDS: LISINOPRIL 20 MG TABLET PO SCH ×2 (08:06→21:48)
[2021-03-13] MEDS: THIAMINE 100 MG in DEXTROSE 5% 50 ML IVPB SCH (08:07)
[2021-03-13 08:09] LABS: INTERNATIONAL NORMALIZED RATIO 1.07 (0.93-1.1); PROTHROMBIN TIME 11.4 Seconds (9.6-11.5)
[2021-03-13 08:09] LABS: MD NO
[2021-03-13 08:10] LABS: CALCIUM 9.8 mg/dL (8.5-10.1); CHLORIDE 103 mmol/L (98-107); CREATININE 0.51 mg/dL (0.7-1.3)
[2021-03-13 08:31] LABS: ANION GAP 4 mmol/L (5-15)
[2021-03-13 13:44] VITALS: BP 105/66
[2021-03-13] MEDS ORDERED: ALBUTEROL SULFATE 2.5 MG/3 ML ONE (13:52)
[2021-03-13 19:12] VITALS: BP 106/68
[2021-03-14] MEDS: HYDROmorphone 1 MG/ML, 1ML INJ IV PRN ×4 (00:54→21:03)
[2021-03-14 02:08] VITALS: BP 115/74
[2021-03-14] MEDS: ALBUTEROL SULFATE 2.5 MG/3 ML NPPB SCH ×4 (07:50→18:24)
[2021-03-14] MEDS: BUDESONIDE 0.5 MG/2 ML INHA INH SCH ×2 (07:50→18:24)
[2021-03-14 07:57] VITALS: BP 103/73
[2021-03-14] MEDS: THIAMINE 100 MG in DEXTROSE 5% 50 ML IVPB SCH (08:05)
[2021-03-14] MEDS: LISINOPRIL 20 MG TABLET PO SCH ×2 (08:59→21:02)
[2021-03-14] MEDS: METHADONE 10 MG TABLET PO SCH (08:59)
[2021-03-14] MEDS: APIXABAN 5 MG TABLET PO/NG SCH ×2 (08:59→21:02)
[2021-03-14] MEDS: BUSPIRONE 5 MG TABLET PO SCH ×3 (08:59→21:02)
[2021-03-14] MEDS: GABAPENTIN 300 MG CAPSULE PO SCH ×3 (09:00→21:02)
[2021-03-14 13:12] VITALS: BP 114/74
[2021-03-14 18:46] VITALS: BP 95/61
[2021-03-15 00:13] VITALS: BP 111/77
[2021-03-15] MEDS: ALBUTEROL SULFATE 2.5 MG/3 ML NPPB SCH ×5 (05:00→18:59)
[2021-03-15 06:59] VITALS: BP 105/62
[2021-03-15] MEDS: HYDROmorphone 1 MG/ML, 1ML INJ IV PRN ×4 (07:27→18:03)
[2021-03-15] MEDS: BUDESONIDE 0.5 MG/2 ML INHA INH SCH ×2 (07:39→18:59)
[2021-03-15] MEDS: GABAPENTIN 300 MG CAPSULE PO SCH ×3 (09:17→21:57)
[2021-03-15] MEDS: BUSPIRONE 5 MG TABLET PO SCH ×3 (09:18→21:57)
[2021-03-15] MEDS: THIAMINE 100 MG in DEXTROSE 5% 50 ML IVPB SCH (09:18)
[2021-03-15] MEDS: APIXABAN 5 MG TABLET PO/NG SCH ×2 (09:18→21:58)
[2021-03-15] MEDS: LISINOPRIL 20 MG TABLET PO SCH ×2 (09:18→21:58)
[2021-03-15] MEDS: METHADONE 10 MG TABLET PO SCH (09:18)
[2021-03-15] MEDS: ACETAMINOPHEN 325 MG TABLET PO PRN (12:45)
[2021-03-15 13:00] VITALS: BP 114/78
[2021-03-15 19:42] VITALS: BP 119/84
[2021-03-16] VITALS (7 sets, daily range): BP systolic 90–171; BP diastolic 53–87
[2021-03-16] MEDS: HYDROmorphone 1 MG/ML, 1ML INJ IV PRN ×3 (04:06→17:17)
[2021-03-16] MEDS: BUDESONIDE 0.5 MG/2 ML INHA INH SCH ×2 (07:00→19:42)
[2021-03-16] MEDS: ALBUTEROL SULFATE 2.5 MG/3 ML NPPB SCH ×4 (07:00→19:42)
[2021-03-16] MEDS: BUSPIRONE 5 MG TABLET PO SCH ×3 (07:56→20:31)
[2021-03-16] MEDS: LISINOPRIL 20 MG TABLET PO SCH ×2 (07:56→20:21)
[2021-03-16] MEDS: METHADONE 10 MG TABLET PO SCH (07:56)
[2021-03-16] MEDS: APIXABAN 5 MG TABLET PO/NG SCH ×2 (07:56→19:33)
[2021-03-16] MEDS: GABAPENTIN 300 MG CAPSULE PO SCH ×3 (07:56→20:31)
[2021-03-16] MEDS: THIAMINE 100 MG in DEXTROSE 5% 50 ML IVPB SCH (07:59)
[2021-03-16] MEDS: OXYcodone IR 5MG TABLET PO PRN (14:58)
[2021-03-17 01:14] VITALS: BP 103/62
[2021-03-17] MEDS: OXYcodone IR 5MG TABLET PO PRN (05:16)
[2021-03-17] MEDS: ALBUTEROL SULFATE 2.5 MG/3 ML NPPB SCH (06:53)
[2021-03-17] MEDS: BUDESONIDE 0.5 MG/2 ML INHA INH SCH (06:53)
[2021-03-17 07:04] LABS: CREATININE 0.87 mg/dL (0.7-1.3)
== END 2021-03-17 07:32 | disposition hospice, home (50) | DRG 91 ==
LOC: ED 17:53 → EDIP 22:41 → 4EST 03-05 00:01 → 4NE 03-11 12:36 → 3N 03-16 10:10
PROVIDERS: ADMIT Family Medicine; ATTEND Internal Medicine
DX: G92 Toxic encephalopathy (principal); J96.21 Acute and chronic respiratory failure with hypoxia; J96.22 Acute and chronic respiratory failure with hypercapnia; F11.20 Opioid dependence, uncomplicated; D68.59 Other primary thrombophilia; E27.3 Drug-induced adrenocortical insufficiency; E27.49 Other adrenocortical insufficiency; E87.1 Hypo-osmolality and hyponatremia; I48.92 Unspecified atrial flutter; J44.1 Chronic obstructive pulmonary disease with (acute) exacerbation; M48.54XA Collapsed vertebra, not elsewhere classified, thoracic region, initial encounter for fracture; M48.56XA Collapsed vertebra, not elsewhere classified, lumbar region, initial encounter for fracture; F10.239 Alcohol dependence with withdrawal, unspecified; I48.0 Paroxysmal atrial fibrillation; Y90.9 Presence of alcohol in blood, level not specified; D50.0 Iron deficiency anemia secondary to blood loss (chronic); M81.8 Other osteoporosis without current pathological fracture; T38.0X5A Adverse effect of glucocorticoids and synthetic analogues, initial encounter; Z20.822 Contact with and (suspected) exposure to COVID-19; Z91.013 Allergy to seafood; Z91.018 Allergy to other foods; D63.8 Anemia in other chronic diseases classified elsewhere; E11.9 Type 2 diabetes mellitus without complications; E87.6 Hypokalemia; G89.29 Other chronic pain; M54.9 Dorsalgia, unspecified; I11.0 Hypertensive heart disease with heart failure; I50.9 Heart failure, unspecified; K59.03 Drug induced constipation; M54.16 Radiculopathy, lumbar region; R62.7 Adult failure to thrive; T40.2X5A Adverse effect of other opioids, initial encounter; Z78.1 Physical restraint status; Z79.01 Long term (current) use of anticoagulants; Z79.52 Long term (current) use of systemic steroids; Z87.891 Personal history of nicotine dependence
CPT/HCPCS: 36415; 36600; 96360; 99291; J7613; J7626; 71045; 71250; 74177; 80048; 80053; 80307; 80320; 81001; 82565; 82803; 83735; 84100; 85025; 85610; 86480; 87040; 93005; 94060; 94640; G0378; J1170; J3411; Q9967; U0005; G0480; J2060; J3475; J7030; J7120; U0003

== ENCOUNTER 2021-03-17 07:25 | Inpatient (IN) | payer OTHER ==
[2021-03-17] MEDS ORDERED: SODIUM CHLORIDE 0.9% 1,000 ML IV SCH (07:30)
[2021-03-17] MEDS ORDERED: LORazepam 2 MG/ML, 1ML IVPush PRN (07:30)
[2021-03-17] MEDS: LORazepam 2 MG/ML, 1ML IVPush SCH ×3 (07:30→20:05)
[2021-03-17] MEDS ORDERED: ATROPINE OPHTH SOLN 1%, 5ML BC PRN (07:30)
[2021-03-17] MEDS ORDERED: MORPHINE SULFATE 4 MG/ML, 1ML IVPush PRN ×3 (07:30)
[2021-03-17] MEDS ORDERED: ONDANSETRON 2MG/ML, 2ML IVPush PRN (07:30)
[2021-03-17] MEDS ORDERED: SCOPOLAMINE 1MG PATCH TD SCH (07:30)
[2021-03-18] MEDS: LORazepam 2 MG/ML, 1ML IVPush SCH (01:39)
== END 2021-03-18 08:40 | disposition expired | DRG 70 ==
LOC: 3N 07:33 → 4NW 14:52
PROVIDERS: ADMIT Internal Medicine; ATTEND Internal Medicine
DX: G93.41 Metabolic encephalopathy (principal); J96.21 Acute and chronic respiratory failure with hypoxia; D68.69 Other thrombophilia; E87.1 Hypo-osmolality and hyponatremia; F11.20 Opioid dependence, uncomplicated; J44.1 Chronic obstructive pulmonary disease with (acute) exacerbation; E27.3 Drug-induced adrenocortical insufficiency; D63.8 Anemia in other chronic diseases classified elsewhere; F10.20 Alcohol dependence, uncomplicated; F17.200 Nicotine dependence, unspecified, uncomplicated; F41.9 Anxiety disorder, unspecified; G89.29 Other chronic pain; I48.0 Paroxysmal atrial fibrillation; K59.03 Drug induced constipation; M54.16 Radiculopathy, lumbar region; M81.8 Other osteoporosis without current pathological fracture; T40.605A Adverse effect of unspecified narcotics, initial encounter; Z66 Do not resuscitate; T38.0X5A Adverse effect of glucocorticoids and synthetic analogues, initial encounter; Z59.0 Homelessness; Z79.01 Long term (current) use of anticoagulants; Z82.49 Family history of ischemic heart disease and other diseases of the circulatory system; Z99.81 Dependence on supplemental oxygen; Z90.49 Acquired absence of other specified parts of digestive tract; Z91.013 Allergy to seafood
CPT/HCPCS: G0378; J2270; J2060